=== PATIENT | male | born 1955 | race Caucasian/White ===

== ENCOUNTER 2017-06-14 17:25 | Inpatient (IN) | payer OTHER ==
[~2017-06-14] VITALS: Ht 198.1 cm; Wt 120.0 kg
[~2017-06-14 17:25] MED LIST: ACET325 PO; ACET500 PO; ALPR.5 PO; ALUMAG30SU PO; ASPI81EC PO; Acidophilus La100 GM; Amitiza24 MCG PO; Augmentin 875-1 EACH PO; BISA5EC; CALCA500CH PO; CEFU250 PO; CEFU500 PO; CEPH500 PO; CHLO500; CIPR500; CIPR500 PO; CLON.5 PO; CVS DISPOSABLE399 ML PR; CYCL10 PO; Citrate Of Mag300 ML PO; Colace100 MG PO; DIAZ2 PO; DIPH12.5EL PO; DOCU100 PO; DOXY100 PO; ENOX100I SC; Enema133 M1 RC; FLAV100 PO; FURO20 PO; Fleet Enema132 ML PR; GABA300 PO; GABA600 PO; GLYCAS PR; GOLYTELY PO; GUAI600T33 PO; Golytely Packe1 EACH PO; HYDACE25S PR; HYDMOR2; HYDMOR2 PO; HYDR25SUP PR; Hair, Skin & N1 EACH PO; INTE30I SC; KETO10 PO; Keflex500 MG PO; Kristalose20 GM PO; LACT10SY PO; MAGCIT300 PO; METO10 PO; MOM; Milk Of Ma400 MG/5 M PO; Minocycline HC100 MG PO; NALT50 PO; NALTREXONE 50 MG PO; NITR100 PO; NITR100CA PO; Naltrexone HCl50 MG PO; OMEP20ER PO; ONDA4ODT MM; OXYACE5T PO; OXYB5 PO; POLTRIOPSO OD; POTCHL10ER PO; PRIM50 PO; PROP65; Percocet 5-3251 EACH PO; Primidone50 MG PO; Protonix40 MG PO; RXHYDMOR2 PO; RXONDA4ODT MM; RXTRAM50 PO; Revia PO; Rocephin 1g1 G/50 ML IV; SACC250C PO; SENNA PO; SIME80CH PO; Senna8.6 M1 PO; Senna8.6 MG PO; TAMS.4ER PO; TETR250 PO; TOLT2 PO; TRAM50 PO; TRIM100 PO; TUMS DUAL ACTI1 EACH PO; Tazicef1 G1 IV; WARF10 PO; WARF2.5; WARF2.5 PO; WARF4 PO; WARF5; WARF5 PO; WARF6 PO; WARF7.5 PO; ZINC20TO TOP; [UNRECOGNIZED DRUG - OTHER]; [UNRECOGNIZED DRUG - OTHER] PO
[2017-06-14] MEDS ORDERED: NYSTATIN POWDER (18:11)
[2017-06-14 18:21] LABS: Source, Urine Catheter
[2017-06-14 18:24] LABS: BASOPHILS ABSOLUTE AUTO 0.02 K/mm3 (0.00-0.23); BASOPHILS PERCENT AUTO 0 % (0-2); EOSINOPHILS ABSOLUTE AUTO 0.22 K/mm3 (0.00-0.68); EOSINOPHILS PERCENT AUTO 2 % (0-6); Hematocrit 48.9 % (37.0-53.0); Hemoglobin 15.1 g/dL (13.5-17.5); IMMATURE GRAN ABSOLUTE AUTO 0.03 K/mm3 (0.00-0.10); IMMATURE GRAN PERCENT AUTO 0 % (0-1); LYMPHOCYTES ABSOLUTE AUTO 0.66 K/mm3 (0.84-5.20); LYMPHOCYTES PERCENT AUTO 6 % (21-46); MONOCYTES PERCENT AUTO 9 % (4-13); Mean Corpuscular HGB 26.4 pg (26.0-34.0); Mean Corpuscular HGB Conc 30.9 g/dL (31.5-36.5); Mean Corpuscular Volume 85 fL (80-100); Mean Platelet Volume 9.5 fL (9.1-12.4); NEUTROPHILS PERCENT AUTO 84 % (41-73); Platelet Count 290 K/mm3 (150-400); RDW Coefficient Variation 15.2 % (11.7-14.2); RDW Standard Deviation 47.4 fL (35.1-46.3); Red Blood Cell Count 5.73 M/mm3 (4.30-5.90); White Blood Cell Count 11.83 K/mm3 (4.00-11.30)
[2017-06-14 18:31] LABS: Appearance, Urine Hazy (Clear); Bilirubin, Urine Neg (Neg); Blood, Urine 4+ (Neg); Color, Urine Yellow (P-Yellow); Glucose Qualitative, Urine Neg (Neg); Ketones, Urine Neg (Neg); Leukocyte Esterase, Urine 3+ (Neg); Nitrite, Urine Pos (Neg); Protein, Urine 2+ (Neg); Specific Gravity, Urine 1.025 (1.003-1.022); Urobilinogen, Urine NORM (Normal)
[2017-06-14 19:03] LABS: International Normalized Ratio 1.91; Prothrombin Time Results 20.3 Sec (9.7-11.5)
[2017-06-14 19:11] LABS: Mucus Light (0-Heavy); White Blood Cells, Urine 25-50 /hpf (0-5)
[2017-06-14 19:12] LABS: Bacteria Mod /hpf; Red Blood Cells, Urine 25-50 /hpf (0-2); Squamous Epithelial Cells Not Seen /hpf (Few)
[2017-06-14 21:06] LABS: Alanine Aminotransfer (ALT/SGP 84 U/L (12-78); Albumin, Blood 3.3 g/dL (3.4-5.0); Albumin/Globulin Ratio 0.7 (0.8-1.8); Alk Phos 82 U/L (50-136); Anion Gap 6 mmol/L (6-16); Aspartate Aminotrans (AST/SGOT 54 U/L (12-37); Bilirubin, Total 0.5 mg/dL (0.1-1.0); Blood Urea Nitrogen 15 mg/dL (8-24); CO2, Blood 27 mmol/L (21-32); Calcium, Blood 8.9 mg/dL (8.5-10.1); Chloride, Blood 106 mmol/L (98-108); Creatinine, Blood 0.75 mg/dL (0.60-1.20); Globulin, Blood 4.9 g/dL (2.2-4.0); Glomerular Filtration Rate >60 (60-); Glucose, Blood 96 mg/dL (70-99); Potassium, Blood 4.7 mmol/L (3.5-5.5); Sodium, Blood 139 mmol/L (136-145); Total Protein, Blood 8.2 g/dL (6.4-8.2)
[2017-06-15] MEDS ORDERED: ZINC OXIDE TOP (02:37)
[2017-06-15] MEDS ORDERED: PROBIOTIC (02:40)
[2017-06-15] MEDS ORDERED: CLON.5 PO (02:52)
[2017-06-15 04:20] LABS: BASOPHILS ABSOLUTE AUTO 0.05 K/mm3 (0.00-0.23); BASOPHILS PERCENT AUTO 0 % (0-2); EOSINOPHILS ABSOLUTE AUTO 0.02 K/mm3 (0.00-0.68); EOSINOPHILS PERCENT AUTO 0 % (0-6); Hematocrit 43.1 % (37.0-53.0); Hemoglobin 13.5 g/dL (13.5-17.5); IMMATURE GRAN ABSOLUTE AUTO 0.18 K/mm3 (0.00-0.10); IMMATURE GRAN PERCENT AUTO 1 % (0-1); LYMPHOCYTES ABSOLUTE AUTO 0.86 K/mm3 (0.84-5.20); LYMPHOCYTES PERCENT AUTO 3 % (21-46); MONOCYTES ABSOLUTE AUTO 2.88 K/mm3 (0.16-1.47); MONOCYTES PERCENT AUTO 11 % (4-13); Mean Corpuscular HGB 26.4 pg (26.0-34.0); Mean Corpuscular HGB Conc 31.3 g/dL (31.5-36.5); Mean Corpuscular Volume 84 fL (80-100); NEUTROPHILS ABSOLUTE AUTO 21.96 K/mm3 (1.96-9.15); NEUTROPHILS PERCENT AUTO 85 % (41-73); Platelet Count 218 K/mm3 (150-400); RDW Coefficient Variation 15.2 % (11.7-14.2); RDW Standard Deviation 46.4 fL (35.1-46.3); Red Blood Cell Count 5.12 M/mm3 (4.30-5.90); White Blood Cell Count 25.95 K/mm3 (4.00-11.30)
[2017-06-15 04:34] LABS: International Normalized Ratio 2.36
[2017-06-15 04:48] LABS: Alanine Aminotransfer (ALT/SGP 66 U/L (12-78); Albumin, Blood 2.5 g/dL (3.4-5.0); Albumin/Globulin Ratio 0.6 (0.8-1.8); Alk Phos 60 U/L (50-136); Anion Gap 6 mmol/L (6-16); Aspartate Aminotrans (AST/SGOT 35 U/L (12-37); Bilirubin, Total 0.6 mg/dL (0.1-1.0); Blood Urea Nitrogen 17 mg/dL (8-24); Bun/Creatinine Ratio 26.1 (12.0-20.0); CO2, Blood 27 mmol/L (21-32); Chloride, Blood 109 mmol/L (98-108); Creatinine, Blood 0.65 mg/dL (0.60-1.20); Globulin, Blood 3.9 g/dL (2.2-4.0); Glomerular Filtration Rate >60 (60-); Glucose, Blood 111 mg/dL (70-99); Potassium, Blood 4.3 mmol/L (3.5-5.5); Sodium, Blood 142 mmol/L (136-145); Total Protein, Blood 6.4 g/dL (6.4-8.2)
[2017-06-15 04:50] LABS: Prothrombin Time Results 25.2 Sec (9.7-11.5)
[2017-06-16 05:08] LABS: BASOPHILS ABSOLUTE AUTO 0.03 K/mm3 (0.00-0.23); BASOPHILS PERCENT AUTO 0 % (0-2); EOSINOPHILS PERCENT AUTO 0 % (0-6); Hematocrit 46.4 % (37.0-53.0); Hemoglobin 14.6 g/dL (13.5-17.5); IMMATURE GRAN PERCENT AUTO 1 % (0-1); LYMPHOCYTES PERCENT AUTO 3 % (21-46); MONOCYTES ABSOLUTE AUTO 0.68 K/mm3 (0.16-1.47); MONOCYTES PERCENT AUTO 3 % (4-13); Mean Corpuscular HGB 26.6 pg (26.0-34.0); Mean Corpuscular HGB Conc 31.5 g/dL (31.5-36.5); Mean Corpuscular Volume 85 fL (80-100); Mean Platelet Volume 9.1 fL (9.1-12.4); NEUTROPHILS ABSOLUTE AUTO 19.55 K/mm3 (1.96-9.15); NEUTROPHILS PERCENT AUTO 93 % (41-73); Platelet Count 240 K/mm3 (150-400); RDW Coefficient Variation 15.2 % (11.7-14.2); RDW Standard Deviation 46.8 fL (35.1-46.3); Red Blood Cell Count 5.48 M/mm3 (4.30-5.90); White Blood Cell Count 20.96 K/mm3 (4.00-11.30)
[2017-06-16 05:26] LABS: International Normalized Ratio 2.81; Prothrombin Time Results 30.2 Sec (9.7-11.5)
[2017-06-16 05:28] LABS: Alanine Aminotransfer (ALT/SGP 59 U/L (12-78); Albumin, Blood 2.7 g/dL (3.4-5.0); Albumin/Globulin Ratio 0.6 (0.8-1.8); Alk Phos 71 U/L (50-136); Anion Gap 8 mmol/L (6-16); Aspartate Aminotrans (AST/SGOT 29 U/L (12-37); Bilirubin, Total 0.7 mg/dL (0.1-1.0); Blood Urea Nitrogen 15 mg/dL (8-24); Bun/Creatinine Ratio 26.7 (12.0-20.0); CO2, Blood 31 mmol/L (21-32); Calcium, Blood 8.7 mg/dL (8.5-10.1); Chloride, Blood 104 mmol/L (98-108); Creatinine, Blood 0.56 mg/dL (0.60-1.20); Globulin, Blood 4.7 g/dL (2.2-4.0); Glomerular Filtration Rate >60 (60-); Glucose, Blood 135 mg/dL (70-99); Potassium, Blood 4.1 mmol/L (3.5-5.5); Sodium, Blood 143 mmol/L (136-145); Total Protein, Blood 7.4 g/dL (6.4-8.2); Vancomycin, Trough 17.4 ug/mL (5.0-10.0)
[2017-06-16 16:32] LABS: Source, Urine Clean Catch
[2017-06-16 16:37] LABS: Appearance, Urine Hazy (Clear); Bilirubin, Urine Neg (Neg); Blood, Urine 5+ (Neg); Color, Urine Yellow (P-Yellow); Glucose Qualitative, Urine Neg (Neg); Ketones, Urine 4+ (Neg); Leukocyte Esterase, Urine 2+ (Neg); Nitrite, Urine Neg (Neg); Protein, Urine 2+ (Neg); Specific Gravity, Urine 1.025 (1.003-1.022); Urobilinogen, Urine NORM (Normal)
[2017-06-16 16:45] LABS: Mucus Light (0-Heavy); White Blood Cells, Urine 25-50 /hpf (0-5)
[2017-06-16 16:46] LABS: Squamous Epithelial Cells Few /hpf (Few)
[2017-06-16 16:47] LABS: Amorphous Light (0-Heavy); Bacteria Few /hpf
[2017-06-17 05:16] LABS: International Normalized Ratio 3.74; Prothrombin Time Results 40.5 Sec (9.7-11.5)
[2017-06-17 07:53] LABS: BASOPHILS ABSOLUTE AUTO 0.04 K/mm3 (0.00-0.23); BASOPHILS PERCENT AUTO 0 % (0-2); EOSINOPHILS PERCENT AUTO 0 % (0-6); Hematocrit 47.3 % (37.0-53.0); Hemoglobin 14.4 g/dL (13.5-17.5); IMMATURE GRAN ABSOLUTE AUTO 0.07 K/mm3 (0.00-0.10); IMMATURE GRAN PERCENT AUTO 0 % (0-1); LYMPHOCYTES PERCENT AUTO 3 % (21-46); MONOCYTES PERCENT AUTO 5 % (4-13); Mean Corpuscular HGB 26.4 pg (26.0-34.0); Mean Corpuscular HGB Conc 30.4 g/dL (31.5-36.5); Mean Corpuscular Volume 87 fL (80-100); Mean Platelet Volume 9.9 fL (9.1-12.4); NEUTROPHILS ABSOLUTE AUTO 17.73 K/mm3 (1.96-9.15); NEUTROPHILS PERCENT AUTO 91 % (41-73); Platelet Count 298 K/mm3 (150-400); RDW Coefficient Variation 15.4 % (11.7-14.2); RDW Standard Deviation 49.1 fL (35.1-46.3); Red Blood Cell Count 5.45 M/mm3 (4.30-5.90); White Blood Cell Count 19.44 K/mm3 (4.00-11.30)
[2017-06-17 08:01] LABS: Anion Gap 6 mmol/L (6-16); Blood Urea Nitrogen 19 mg/dL (8-24); Bun/Creatinine Ratio 32.4 (12.0-20.0); CO2, Blood 35 mmol/L (21-32); Calcium, Blood 8.8 mg/dL (8.5-10.1); Chloride, Blood 104 mmol/L (98-108); Creatinine, Blood 0.59 mg/dL (0.60-1.20); Glomerular Filtration Rate >60 (60-); Glucose, Blood 122 mg/dL (70-99); Sodium, Blood 145 mmol/L (136-145)
[2017-06-18 06:07] LABS: BASOPHILS ABSOLUTE AUTO 0.05 K/mm3 (0.00-0.23); BASOPHILS PERCENT AUTO 0 % (0-2); EOSINOPHILS ABSOLUTE AUTO 0.01 K/mm3 (0.00-0.68); EOSINOPHILS PERCENT AUTO 0 % (0-6); Hematocrit 45.8 % (37.0-53.0); IMMATURE GRAN ABSOLUTE AUTO 0.15 K/mm3 (0.00-0.10); IMMATURE GRAN PERCENT AUTO 1 % (0-1); LYMPHOCYTES ABSOLUTE AUTO 0.44 K/mm3 (0.84-5.20); LYMPHOCYTES PERCENT AUTO 2 % (21-46); MONOCYTES ABSOLUTE AUTO 2.29 K/mm3 (0.16-1.47); MONOCYTES PERCENT AUTO 9 % (4-13); Mean Corpuscular HGB 26.3 pg (26.0-34.0); Mean Corpuscular HGB Conc 30.6 g/dL (31.5-36.5); Mean Corpuscular Volume 86 fL (80-100); Mean Platelet Volume 9.5 fL (9.1-12.4); NEUTROPHILS ABSOLUTE AUTO 21.58 K/mm3 (1.96-9.15); NEUTROPHILS PERCENT AUTO 88 % (41-73); Platelet Count 305 K/mm3 (150-400); RDW Coefficient Variation 15.2 % (11.7-14.2); RDW Standard Deviation 47.8 fL (35.1-46.3); Red Blood Cell Count 5.33 M/mm3 (4.30-5.90); White Blood Cell Count 24.52 K/mm3 (4.00-11.30)
[2017-06-18 06:24] LABS: Prothrombin Time Results 60.2 Sec (9.7-11.5)
[2017-06-18 06:39] LABS: Alanine Aminotransfer (ALT/SGP 35 U/L (12-78); Albumin, Blood 2.6 g/dL (3.4-5.0); Albumin/Globulin Ratio 0.6 (0.8-1.8); Alk Phos 73 U/L (50-136); Anion Gap 5 mmol/L (6-16); Aspartate Aminotrans (AST/SGOT 18 U/L (12-37); Bilirubin, Total 0.6 mg/dL (0.1-1.0); Blood Urea Nitrogen 21 mg/dL (8-24); Bun/Creatinine Ratio 34.3 (12.0-20.0); CO2, Blood 42 mmol/L (21-32); Calcium, Blood 8.8 mg/dL (8.5-10.1); Chloride, Blood 103 mmol/L (98-108); Creatinine, Blood 0.61 mg/dL (0.60-1.20); Globulin, Blood 4.6 g/dL (2.2-4.0); Glomerular Filtration Rate >60 (60-); Glucose, Blood 161 mg/dL (70-99); Potassium, Blood 3.1 mmol/L (3.5-5.5); Sodium, Blood 150 mmol/L (136-145); Total Protein, Blood 7.2 g/dL (6.4-8.2)
[2017-06-18 06:41] LABS: International Normalized Ratio 5.49
[2017-06-18 06:53] LABS: Vancomycin, Trough 22.5 ug/mL (5.0-10.0)
[2017-06-19 06:25] LABS: BASOPHILS ABSOLUTE AUTO 0.07 K/mm3 (0.00-0.23); BASOPHILS PERCENT AUTO 0 % (0-2); EOSINOPHILS ABSOLUTE AUTO 0.07 K/mm3 (0.00-0.68); EOSINOPHILS PERCENT AUTO 0 % (0-6); Hematocrit 46.5 % (37.0-53.0); Hemoglobin 13.8 g/dL (13.5-17.5); IMMATURE GRAN ABSOLUTE AUTO 0.22 K/mm3 (0.00-0.10); IMMATURE GRAN PERCENT AUTO 1 % (0-1); LYMPHOCYTES ABSOLUTE AUTO 0.42 K/mm3 (0.84-5.20); LYMPHOCYTES PERCENT AUTO 2 % (21-46); MONOCYTES ABSOLUTE AUTO 2.23 K/mm3 (0.16-1.47); MONOCYTES PERCENT AUTO 8 % (4-13); Mean Corpuscular HGB 26.4 pg (26.0-34.0); Mean Corpuscular HGB Conc 29.7 g/dL (31.5-36.5); Mean Platelet Volume 9.3 fL (9.1-12.4); NEUTROPHILS ABSOLUTE AUTO 24.59 K/mm3 (1.96-9.15); NEUTROPHILS PERCENT AUTO 89 % (41-73); Platelet Count 289 K/mm3 (150-400); RDW Coefficient Variation 15.3 % (11.7-14.2); RDW Standard Deviation 50.2 fL (35.1-46.3); Red Blood Cell Count 5.23 M/mm3 (4.30-5.90)
[2017-06-19 06:26] LABS: Mean Corpuscular Volume 89 fL (80-100)
[2017-06-19 06:57] LABS: Alanine Aminotransfer (ALT/SGP 35 U/L (12-78); Albumin, Blood 2.4 g/dL (3.4-5.0); Albumin/Globulin Ratio 0.5 (0.8-1.8); Alk Phos 91 U/L (50-136); Aspartate Aminotrans (AST/SGOT 24 U/L (12-37); Bilirubin, Total 1.3 mg/dL (0.1-1.0); Blood Urea Nitrogen 24 mg/dL (8-24); Bun/Creatinine Ratio 38.8 (12.0-20.0); Chloride, Blood 102 mmol/L (98-108); Creatinine, Blood 0.62 mg/dL (0.60-1.20); Globulin, Blood 4.6 g/dL (2.2-4.0); Glomerular Filtration Rate >60 (60-); Glucose, Blood 152 mg/dL (70-99); Magnesium, Blood 2.6 mg/dL (1.6-2.4); Potassium, Blood 2.7 mmol/L (3.5-5.5); Sodium, Blood 153 mmol/L (136-145)
[2017-06-19 07:14] LABS: Anion Gap Unable to Calculate mmol/L (6-16)
[2017-06-19 07:17] LABS: CO2, Blood >45 mmol/L (21-32)
[2017-06-19 07:27] LABS: International Normalized Ratio 6.53
[2017-06-19 10:23] LABS: PCO2 Arterial 57.6 mmHg (35-45); PO2 Arterial 38.4 mmHg (80-100); pH Blood Arterial 7.56 (7.35-7.45)
[2017-06-19 13:40] LABS: PCO2 Arterial 47.6 mmHg (35-45); PO2 Arterial 61.3 mmHg (80-100)
[2017-06-19 17:24] LABS: Albumin, Blood 2.3 g/dL (3.4-5.0); Blood Urea Nitrogen 25 mg/dL (8-24); Bun/Creatinine Ratio 31.3 (12.0-20.0); Calcium, Blood 8.3 mg/dL (8.5-10.1); Chloride, Blood 105 mmol/L (98-108); Glomerular Filtration Rate >60 (60-); Glucose, Blood 140 mg/dL (70-99); Phosphorus, Blood 2.4 mg/dL (2.5-4.9); Potassium, Blood 2.6 mmol/L (3.5-5.5); Sodium, Blood 154 mmol/L (136-145); Troponin I 0.037 ng/mL (0.000-0.040)
[2017-06-19 17:28] LABS: Vancomycin, Trough 23.5 ug/mL (5.0-10.0)
[2017-06-19 17:51] LABS: Anion Gap Unable to Calculate mmol/L (6-16)
[2017-06-19 17:55] LABS: CO2, Blood >45 mmol/L (21-32)
[2017-06-20 04:37] LABS: Hematocrit 37.5 % (37.0-53.0); Hemoglobin 11.3 g/dL (13.5-17.5); Mean Corpuscular HGB 26.3 pg (26.0-34.0); Mean Corpuscular HGB Conc 30.1 g/dL (31.5-36.5); Mean Corpuscular Volume 87 fL (80-100); Mean Platelet Volume 9.9 fL (9.1-12.4); NRBC ABSOLUTE 0.03 K/mm3 (0.00-0.02); NRBC Auto 0.1 /100 WBC (0.0-0.2); Platelet Count 229 K/mm3 (150-400); RDW Coefficient Variation 15.9 % (11.7-14.2); RDW Standard Deviation 50.1 fL (35.1-46.3); Red Blood Cell Count 4.29 M/mm3 (4.30-5.90); White Blood Cell Count 24.03 K/mm3 (4.00-11.30)
[2017-06-20 04:52] LABS: International Normalized Ratio 3.03; Prothrombin Time Results 32.6 Sec (9.7-11.5)
[2017-06-20 04:59] LABS: Anion Gap 6 mmol/L (6-16); Blood Urea Nitrogen 25 mg/dL (8-24); Bun/Creatinine Ratio 35.7 (12.0-20.0); CO2, Blood 42 mmol/L (21-32); Calcium, Blood 7.6 mg/dL (8.5-10.1); Chloride, Blood 105 mmol/L (98-108); Glomerular Filtration Rate >60 (60-); Glucose, Blood 127 mg/dL (70-99); Phosphorus, Blood 2.3 mg/dL (2.5-4.9); Potassium, Blood 2.3 mmol/L (3.5-5.5); Sodium, Blood 153 mmol/L (136-145); Vancomycin, Random 11.9 ug/mL
[2017-06-20 05:28] LABS: BASOPHILS PERCENT MAN 0 % (0-2); EOSINOPHILS ABSOLUTE MAN 0.96 K/mm3 (0.00-0.68); EOSINOPHILS PERCENT MAN 4 % (0-6); LYMPHOCYTES ABSOLUTE MAN 0.24 K/mm3 (0.84-5.20); LYMPHOCYTES PERCENT MAN 1 % (21-46); MONOCYTES ABSOLUTE MAN 0.48 K/mm3 (0.16-1.47); MONOCYTES PERCENT MAN 2 % (4-13); NEUTROPHILS ABSOLUTE MAN 22.34 K/mm3 (1.96-9.15); SEG NEUTROPHILS PERCENT MAN 93 % (41-73); TOTAL CELLS COUNTED 100
[2017-06-20 16:15] LABS: Albumin, Blood 1.9 g/dL (3.4-5.0); Anion Gap 3 mmol/L (6-16); Blood Urea Nitrogen 21 mg/dL (8-24); CO2, Blood 38 mmol/L (21-32); Calcium, Blood 7.3 mg/dL (8.5-10.1); Chloride, Blood 112 mmol/L (98-108); Creatinine, Blood 0.62 mg/dL (0.60-1.20); Glomerular Filtration Rate >60 (60-); Glucose, Blood 110 mg/dL (70-99); Phosphorus, Blood 2.9 mg/dL (2.5-4.9); Potassium, Blood 2.8 mmol/L (3.5-5.5); Sodium, Blood 153 mmol/L (136-145)
[2017-06-21 04:55] LABS: BASOPHILS ABSOLUTE AUTO 0.07 K/mm3 (0.00-0.23); BASOPHILS PERCENT AUTO 0 % (0-2); EOSINOPHILS ABSOLUTE AUTO 1.38 K/mm3 (0.00-0.68); EOSINOPHILS PERCENT AUTO 6 % (0-6); Hematocrit 33.2 % (37.0-53.0); IMMATURE GRAN ABSOLUTE AUTO 0.13 K/mm3 (0.00-0.10); IMMATURE GRAN PERCENT AUTO 1 % (0-1); LYMPHOCYTES ABSOLUTE AUTO 0.54 K/mm3 (0.84-5.20); LYMPHOCYTES PERCENT AUTO 2 % (21-46); MONOCYTES ABSOLUTE AUTO 0.92 K/mm3 (0.16-1.47); MONOCYTES PERCENT AUTO 4 % (4-13); Mean Corpuscular HGB 26.4 pg (26.0-34.0); Mean Corpuscular HGB Conc 30.1 g/dL (31.5-36.5); Mean Corpuscular Volume 88 fL (80-100); Mean Platelet Volume 10.2 fL (9.1-12.4); NEUTROPHILS ABSOLUTE AUTO 20.23 K/mm3 (1.96-9.15); NEUTROPHILS PERCENT AUTO 87 % (41-73); NRBC ABSOLUTE 0.02 K/mm3 (0.00-0.02); NRBC Auto 0.1 /100 WBC (0.0-0.2); Platelet Count 229 K/mm3 (150-400); RDW Coefficient Variation 15.9 % (11.7-14.2); RDW Standard Deviation 50.4 fL (35.1-46.3); Red Blood Cell Count 3.79 M/mm3 (4.30-5.90); White Blood Cell Count 23.27 K/mm3 (4.00-11.30)
[2017-06-21 05:09] LABS: International Normalized Ratio 2.17; Prothrombin Time Results 23.1 Sec (9.7-11.5)
[2017-06-21 05:17] LABS: Albumin, Blood 1.7 g/dL (3.4-5.0); Anion Gap 5 mmol/L (6-16); Blood Urea Nitrogen 20 mg/dL (8-24); CO2, Blood 35 mmol/L (21-32); Chloride, Blood 114 mmol/L (98-108); Creatinine, Blood 0.65 mg/dL (0.60-1.20); Glomerular Filtration Rate >60 (60-); Glucose, Blood 164 mg/dL (70-99); Magnesium, Blood 1.9 mg/dL (1.6-2.4); Phosphorus, Blood 1.6 mg/dL (2.5-4.9); Potassium, Blood 2.8 mmol/L (3.5-5.5); Sodium, Blood 154 mmol/L (136-145); Vancomycin, Random 7.6 ug/mL
[2017-06-21 15:39] LABS: Alanine Aminotransfer (ALT/SGP 24 U/L (12-78); Albumin, Blood 1.6 g/dL (3.4-5.0); Albumin/Globulin Ratio 0.4 (0.8-1.8); Alk Phos 94 U/L (50-136); Anion Gap 7 mmol/L (6-16); Aspartate Aminotrans (AST/SGOT 20 U/L (12-37); Bilirubin, Total 0.6 mg/dL (0.1-1.0); Blood Urea Nitrogen 15 mg/dL (8-24); Bun/Creatinine Ratio 25.9 (12.0-20.0); CO2, Blood 31 mmol/L (21-32); Chloride, Blood 117 mmol/L (98-108); Creatinine, Blood 0.58 mg/dL (0.60-1.20); Globulin, Blood 3.8 g/dL (2.2-4.0); Glomerular Filtration Rate >60 (60-); Glucose, Blood 99 mg/dL (70-99); Phosphorus, Blood 2.6 mg/dL (2.5-4.9); Potassium, Blood 3.3 mmol/L (3.5-5.5); Sodium, Blood 155 mmol/L (136-145); Total Protein, Blood 5.4 g/dL (6.4-8.2)
[2017-06-22 04:37] LABS: BASOPHILS ABSOLUTE AUTO 0.02 K/mm3 (0.00-0.23); BASOPHILS PERCENT AUTO 0 % (0-2); EOSINOPHILS ABSOLUTE AUTO 0.92 K/mm3 (0.00-0.68); EOSINOPHILS PERCENT AUTO 6 % (0-6); Hematocrit 28.9 % (37.0-53.0); Hemoglobin 8.7 g/dL (13.5-17.5); IMMATURE GRAN ABSOLUTE AUTO 0.12 K/mm3 (0.00-0.10); IMMATURE GRAN PERCENT AUTO 1 % (0-1); LYMPHOCYTES ABSOLUTE AUTO 0.75 K/mm3 (0.84-5.20); LYMPHOCYTES PERCENT AUTO 5 % (21-46); MONOCYTES ABSOLUTE AUTO 0.72 K/mm3 (0.16-1.47); MONOCYTES PERCENT AUTO 5 % (4-13); Mean Corpuscular HGB 26.9 pg (26.0-34.0); Mean Corpuscular HGB Conc 30.1 g/dL (31.5-36.5); Mean Corpuscular Volume 89 fL (80-100); Mean Platelet Volume 9.5 fL (9.1-12.4); NEUTROPHILS ABSOLUTE AUTO 11.95 K/mm3 (1.96-9.15); NEUTROPHILS PERCENT AUTO 83 % (41-73); Platelet Count 208 K/mm3 (150-400); RDW Standard Deviation 52.8 fL (35.1-46.3); Red Blood Cell Count 3.24 M/mm3 (4.30-5.90); White Blood Cell Count 14.48 K/mm3 (4.00-11.30)
[2017-06-22 04:49] LABS: International Normalized Ratio 2.09; Prothrombin Time Results 22.2 Sec (9.7-11.5)
[2017-06-22 04:55] LABS: Albumin, Blood 1.5 g/dL (3.4-5.0); Anion Gap 4 mmol/L (6-16); Blood Urea Nitrogen 17 mg/dL (8-24); Bun/Creatinine Ratio 31.3 (12.0-20.0); CO2, Blood 28 mmol/L (21-32); Calcium, Blood 6.9 mg/dL (8.5-10.1); Chloride, Blood 123 mmol/L (98-108); Creatinine, Blood 0.54 mg/dL (0.60-1.20); Glomerular Filtration Rate >60 (60-); Glucose, Blood 121 mg/dL (70-99); Potassium, Blood 4.1 mmol/L (3.5-5.5); Sodium, Blood 155 mmol/L (136-145)
[2017-06-22 17:23] LABS: Albumin, Blood 1.5 g/dL (3.4-5.0); Anion Gap 3 mmol/L (6-16); Blood Urea Nitrogen 17 mg/dL (8-24); Bun/Creatinine Ratio 31.7 (12.0-20.0); CO2, Blood 27 mmol/L (21-32); Calcium, Blood 7.3 mg/dL (8.5-10.1); Chloride, Blood 122 mmol/L (98-108); Creatinine, Blood 0.54 mg/dL (0.60-1.20); Glomerular Filtration Rate >60 (60-); Glucose, Blood 117 mg/dL (70-99); Phosphorus, Blood 2.2 mg/dL (2.5-4.9); Potassium, Blood 4.1 mmol/L (3.5-5.5); Sodium, Blood 152 mmol/L (136-145)
[2017-06-23 04:33] LABS: BASOPHILS ABSOLUTE AUTO 0.02 K/mm3 (0.00-0.23); BASOPHILS PERCENT AUTO 0 % (0-2); EOSINOPHILS ABSOLUTE AUTO 0.83 K/mm3 (0.00-0.68); EOSINOPHILS PERCENT AUTO 7 % (0-6); Hemoglobin 8.8 g/dL (13.5-17.5); IMMATURE GRAN ABSOLUTE AUTO 0.12 K/mm3 (0.00-0.10); IMMATURE GRAN PERCENT AUTO 1 % (0-1); LYMPHOCYTES ABSOLUTE AUTO 0.68 K/mm3 (0.84-5.20); LYMPHOCYTES PERCENT AUTO 6 % (21-46); MONOCYTES ABSOLUTE AUTO 0.84 K/mm3 (0.16-1.47); MONOCYTES PERCENT AUTO 7 % (4-13); Mean Corpuscular HGB 26.8 pg (26.0-34.0); Mean Corpuscular HGB Conc 29.3 g/dL (31.5-36.5); Mean Platelet Volume 9.6 fL (9.1-12.4); NEUTROPHILS ABSOLUTE AUTO 9.74 K/mm3 (1.96-9.15); NEUTROPHILS PERCENT AUTO 80 % (41-73); Platelet Count 231 K/mm3 (150-400); RDW Coefficient Variation 16.4 % (11.7-14.2); RDW Standard Deviation 54.9 fL (35.1-46.3); Red Blood Cell Count 3.28 M/mm3 (4.30-5.90); White Blood Cell Count 12.23 K/mm3 (4.00-11.30)
[2017-06-23 04:34] LABS: Mean Corpuscular Volume 92 fL (80-100)
[2017-06-23 04:47] LABS: Albumin, Blood 1.6 g/dL (3.4-5.0); Anion Gap 7 mmol/L (6-16); Blood Urea Nitrogen 17 mg/dL (8-24); Bun/Creatinine Ratio 29.8 (12.0-20.0); CO2, Blood 25 mmol/L (21-32); Calcium, Blood 7.7 mg/dL (8.5-10.1); Chloride, Blood 120 mmol/L (98-108); Creatinine, Blood 0.57 mg/dL (0.60-1.20); Glomerular Filtration Rate >60 (60-); Glucose, Blood 93 mg/dL (70-99); Potassium, Blood 4.5 mmol/L (3.5-5.5); Sodium, Blood 152 mmol/L (136-145)
[2017-06-23 09:31] LABS: Vancomycin, Trough 7.9 ug/mL (5.0-10.0)
[2017-06-23 09:54] LABS: International Normalized Ratio 2.09; Prothrombin Time Results 22.2 Sec (9.7-11.5)
[2017-06-24 04:37] LABS: BASOPHILS ABSOLUTE AUTO 0.02 K/mm3 (0.00-0.23); BASOPHILS PERCENT AUTO 0 % (0-2); EOSINOPHILS ABSOLUTE AUTO 0.61 K/mm3 (0.00-0.68); EOSINOPHILS PERCENT AUTO 6 % (0-6); Hematocrit 28.7 % (37.0-53.0); Hemoglobin 8.7 g/dL (13.5-17.5); IMMATURE GRAN ABSOLUTE AUTO 0.12 K/mm3 (0.00-0.10); IMMATURE GRAN PERCENT AUTO 1 % (0-1); LYMPHOCYTES ABSOLUTE AUTO 0.75 K/mm3 (0.84-5.20); LYMPHOCYTES PERCENT AUTO 7 % (21-46); MONOCYTES ABSOLUTE AUTO 0.77 K/mm3 (0.16-1.47); MONOCYTES PERCENT AUTO 7 % (4-13); Mean Corpuscular HGB 26.7 pg (26.0-34.0); Mean Corpuscular HGB Conc 30.3 g/dL (31.5-36.5); Mean Corpuscular Volume 88 fL (80-100); Mean Platelet Volume 10.2 fL (9.1-12.4); NEUTROPHILS ABSOLUTE AUTO 8.56 K/mm3 (1.96-9.15); NEUTROPHILS PERCENT AUTO 79 % (41-73); Platelet Count 257 K/mm3 (150-400); RDW Coefficient Variation 15.9 % (11.7-14.2); RDW Standard Deviation 51.6 fL (35.1-46.3); Red Blood Cell Count 3.26 M/mm3 (4.30-5.90); White Blood Cell Count 10.83 K/mm3 (4.00-11.30)
[2017-06-24 04:50] LABS: International Normalized Ratio 2.01; Prothrombin Time Results 21.4 Sec (9.7-11.5)
[2017-06-24 04:53] LABS: Albumin, Blood 1.6 g/dL (3.4-5.0); Anion Gap 5 mmol/L (6-16); Blood Urea Nitrogen 12 mg/dL (8-24); Bun/Creatinine Ratio 19.4 (12.0-20.0); CO2, Blood 28 mmol/L (21-32); Calcium, Blood 7.8 mg/dL (8.5-10.1); Chloride, Blood 108 mmol/L (98-108); Creatinine, Blood 0.62 mg/dL (0.60-1.20); Glomerular Filtration Rate >60 (60-); Glucose, Blood 119 mg/dL (70-99); Phosphorus, Blood 1.9 mg/dL (2.5-4.9)
[2017-06-24 04:58] LABS: Sodium, Blood 141 mmol/L (136-145)
[2017-06-25 05:48] LABS: BASOPHILS ABSOLUTE AUTO 0.02 K/mm3 (0.00-0.23); BASOPHILS PERCENT AUTO 0 % (0-2); EOSINOPHILS ABSOLUTE AUTO 0.51 K/mm3 (0.00-0.68); EOSINOPHILS PERCENT AUTO 5 % (0-6); Hematocrit 29.8 % (37.0-53.0); Hemoglobin 9.1 g/dL (13.5-17.5); IMMATURE GRAN ABSOLUTE AUTO 0.17 K/mm3 (0.00-0.10); IMMATURE GRAN PERCENT AUTO 2 % (0-1); LYMPHOCYTES ABSOLUTE AUTO 0.83 K/mm3 (0.84-5.20); LYMPHOCYTES PERCENT AUTO 9 % (21-46); MONOCYTES ABSOLUTE AUTO 0.77 K/mm3 (0.16-1.47); MONOCYTES PERCENT AUTO 8 % (4-13); Mean Corpuscular HGB 26.6 pg (26.0-34.0); Mean Corpuscular HGB Conc 30.5 g/dL (31.5-36.5); Mean Corpuscular Volume 87 fL (80-100); Mean Platelet Volume 9.6 fL (9.1-12.4); NEUTROPHILS ABSOLUTE AUTO 7.24 K/mm3 (1.96-9.15); NEUTROPHILS PERCENT AUTO 76 % (41-73); Platelet Count 291 K/mm3 (150-400); RDW Coefficient Variation 15.8 % (11.7-14.2); RDW Standard Deviation 49.6 fL (35.1-46.3); Red Blood Cell Count 3.42 M/mm3 (4.30-5.90); White Blood Cell Count 9.54 K/mm3 (4.00-11.30)
[2017-06-25 06:05] LABS: Prothrombin Time Results 21.2 Sec (9.7-11.5)
[2017-06-25 06:06] LABS: Alanine Aminotransfer (ALT/SGP 40 U/L (12-78); Albumin, Blood 1.7 g/dL (3.4-5.0); Albumin/Globulin Ratio 0.4 (0.8-1.8); Alk Phos 87 U/L (50-136); Anion Gap 5 mmol/L (6-16); Aspartate Aminotrans (AST/SGOT 39 U/L (12-37); Bilirubin, Total 0.4 mg/dL (0.1-1.0); Blood Urea Nitrogen 11 mg/dL (8-24); Bun/Creatinine Ratio 17.9 (12.0-20.0); CO2, Blood 30 mmol/L (21-32); Chloride, Blood 107 mmol/L (98-108); Creatinine, Blood 0.62 mg/dL (0.60-1.20); Globulin, Blood 4.5 g/dL (2.2-4.0); Glomerular Filtration Rate >60 (60-); Glucose, Blood 118 mg/dL (70-99); Phosphorus, Blood 3.2 mg/dL (2.5-4.9); Potassium, Blood 3.9 mmol/L (3.5-5.5); Sodium, Blood 142 mmol/L (136-145); Total Protein, Blood 6.2 g/dL (6.4-8.2)
[2017-06-26 04:42] LABS: BASOPHILS PERCENT AUTO 0 % (0-2); EOSINOPHILS ABSOLUTE AUTO 0.42 K/mm3 (0.00-0.68); EOSINOPHILS PERCENT AUTO 5 % (0-6); Hematocrit 28.8 % (37.0-53.0); Hemoglobin 8.9 g/dL (13.5-17.5); IMMATURE GRAN ABSOLUTE AUTO 0.19 K/mm3 (0.00-0.10); IMMATURE GRAN PERCENT AUTO 2 % (0-1); LYMPHOCYTES ABSOLUTE AUTO 1.23 K/mm3 (0.84-5.20); LYMPHOCYTES PERCENT AUTO 15 % (21-46); MONOCYTES ABSOLUTE AUTO 0.79 K/mm3 (0.16-1.47); MONOCYTES PERCENT AUTO 9 % (4-13); Mean Corpuscular HGB 26.7 pg (26.0-34.0); Mean Corpuscular HGB Conc 30.9 g/dL (31.5-36.5); Mean Corpuscular Volume 87 fL (80-100); Mean Platelet Volume 9.6 fL (9.1-12.4); NEUTROPHILS ABSOLUTE AUTO 5.83 K/mm3 (1.96-9.15); NEUTROPHILS PERCENT AUTO 69 % (41-73); Platelet Count 348 K/mm3 (150-400); RDW Coefficient Variation 15.8 % (11.7-14.2); RDW Standard Deviation 49.3 fL (35.1-46.3); Red Blood Cell Count 3.33 M/mm3 (4.30-5.90); White Blood Cell Count 8.46 K/mm3 (4.00-11.30)
[2017-06-26 04:55] LABS: International Normalized Ratio 1.89; Prothrombin Time Results 20.1 Sec (9.7-11.5)
[2017-06-26 05:02] LABS: Alanine Aminotransfer (ALT/SGP 45 U/L (12-78); Albumin, Blood 1.8 g/dL (3.4-5.0); Albumin/Globulin Ratio 0.4 (0.8-1.8); Alk Phos 81 U/L (50-136); Anion Gap 5 mmol/L (6-16); Aspartate Aminotrans (AST/SGOT 38 U/L (12-37); Bilirubin, Total 0.3 mg/dL (0.1-1.0); Blood Urea Nitrogen 9 mg/dL (8-24); Bun/Creatinine Ratio 13.7 (12.0-20.0); CO2, Blood 30 mmol/L (21-32); Calcium, Blood 8.3 mg/dL (8.5-10.1); Chloride, Blood 106 mmol/L (98-108); Creatinine, Blood 0.66 mg/dL (0.60-1.20); Globulin, Blood 4.4 g/dL (2.2-4.0); Glomerular Filtration Rate >60 (60-); Glucose, Blood 106 mg/dL (70-99); Potassium, Blood 4.1 mmol/L (3.5-5.5); Sodium, Blood 141 mmol/L (136-145); Total Protein, Blood 6.2 g/dL (6.4-8.2)
[2017-06-27 03:42] LABS: International Normalized Ratio 2.32; Prothrombin Time Results 24.8 Sec (9.7-11.5)
[2017-06-28 05:04] LABS: BASOPHILS ABSOLUTE AUTO 0.03 K/mm3 (0.00-0.23); BASOPHILS PERCENT AUTO 0 % (0-2); EOSINOPHILS ABSOLUTE AUTO 0.35 K/mm3 (0.00-0.68); EOSINOPHILS PERCENT AUTO 3 % (0-6); Hematocrit 31.2 % (37.0-53.0); Hemoglobin 9.7 g/dL (13.5-17.5); IMMATURE GRAN ABSOLUTE AUTO 0.12 K/mm3 (0.00-0.10); IMMATURE GRAN PERCENT AUTO 1 % (0-1); LYMPHOCYTES PERCENT AUTO 13 % (21-46); MONOCYTES ABSOLUTE AUTO 1.07 K/mm3 (0.16-1.47); MONOCYTES PERCENT AUTO 11 % (4-13); Mean Corpuscular HGB 26.9 pg (26.0-34.0); Mean Corpuscular HGB Conc 31.1 g/dL (31.5-36.5); Mean Corpuscular Volume 86 fL (80-100); Mean Platelet Volume 9.2 fL (9.1-12.4); NEUTROPHILS ABSOLUTE AUTO 7.28 K/mm3 (1.96-9.15); NEUTROPHILS PERCENT AUTO 72 % (41-73); NRBC ABSOLUTE 0.02 K/mm3 (0.00-0.02); NRBC Auto 0.2 /100 WBC (0.0-0.2); Platelet Count 510 K/mm3 (150-400); RDW Coefficient Variation 15.9 % (11.7-14.2); Red Blood Cell Count 3.61 M/mm3 (4.30-5.90); White Blood Cell Count 10.15 K/mm3 (4.00-11.30)
[2017-06-28 05:18] LABS: International Normalized Ratio 3.23; Prothrombin Time Results 34.8 Sec (9.7-11.5)
[2017-06-28 05:25] LABS: Alanine Aminotransfer (ALT/SGP 49 U/L (12-78); Albumin/Globulin Ratio 0.4 (0.8-1.8); Alk Phos 85 U/L (50-136); Anion Gap 5 mmol/L (6-16); Aspartate Aminotrans (AST/SGOT 37 U/L (12-37); Bilirubin, Total 0.2 mg/dL (0.1-1.0); Blood Urea Nitrogen 11 mg/dL (8-24); Bun/Creatinine Ratio 14.9 (12.0-20.0); CO2, Blood 30 mmol/L (21-32); Calcium, Blood 8.8 mg/dL (8.5-10.1); Chloride, Blood 103 mmol/L (98-108); Creatinine, Blood 0.74 mg/dL (0.60-1.20); Globulin, Blood 4.9 g/dL (2.2-4.0); Glomerular Filtration Rate >60 (60-); Glucose, Blood 117 mg/dL (70-99); Magnesium, Blood 1.9 mg/dL (1.6-2.4); Potassium, Blood 4.8 mmol/L (3.5-5.5); Sodium, Blood 138 mmol/L (136-145); Total Protein, Blood 6.9 g/dL (6.4-8.2)
[2017-06-28 05:28] LABS: Percent Saturation 10.6 % (20.0-50.0)
[2017-06-28] MEDS ORDERED: MIDO5 PO (09:28)
[2017-06-28] MEDS ORDERED: FAMO40 PO (09:28)
== END 2017-06-28 13:30 | DRG 871 ==
LOC: ER 17:25 → PCU 20:04 → MEDS 20:04 → ICUE 20:04 → PCU 21:00 → MEDS 06-15 12:56 → ICUE 06-19 09:15 → PCU 06-25 15:26
PROVIDERS: Emergency Medicine; Internal Medicine; Internal Medicine Critical Care Medicine
PROC: 0BH17EZ Insertion of Endotracheal Airway into Trachea, Via Natural or Artificial Opening (ICD-10-PCS; principal; 2017-06-19)
PROC: 02HV33Z Insertion of Infusion Device into Superior Vena Cava, Percutaneous Approach (ICD-10-PCS; 2017-06-19)
PROC: 3E033XZ Introduction of Vasopressor into Peripheral Vein, Percutaneous Approach (ICD-10-PCS; 2017-06-19)
PROC: 5A1945Z Respiratory Ventilation, 24-96 Consecutive Hours (ICD-10-PCS; 2017-06-19)
DX: A41.52 Sepsis due to Pseudomonas (principal); R65.21 Severe sepsis with septic shock; J96.01 Acute respiratory failure with hypoxia; D65 Disseminated intravascular coagulation [defibrination syndrome]; J69.0 Pneumonitis due to inhalation of food and vomit; J96.02 Acute respiratory failure with hypercapnia; J15.9 Unspecified bacterial pneumonia; N39.0 Urinary tract infection, site not specified; E87.0 Hyperosmolality and hypernatremia; K56.699 Other intestinal obstruction unspecified as to partial versus complete obstruction; R13.10 Dysphagia, unspecified; G35 Multiple sclerosis; E87.6 Hypokalemia; N31.9 Neuromuscular dysfunction of bladder, unspecified; Z93.2 Ileostomy status; K31.84 Gastroparesis; Z86.718 Personal history of other venous thrombosis and embolism; Z79.01 Long term (current) use of anticoagulants; Z79.82 Long term (current) use of aspirin; K21.9 Gastro-esophageal reflux disease without esophagitis; G89.4 Chronic pain syndrome; E83.39 Other disorders of phosphorus metabolism
CPT/HCPCS: 31500; 31720; 36415; 36430; 36556; 36600; 51702; 71045; 71046; 74018; 74177; 80048; 80053; 80069; 80202; 81001; 82728; 82803; 82947; 83540; 83550; 83605; 83735; 84100; 84132; 84145; 84484; 85025; 85610; 86900; 86901; 87040; 87070; 87077; 87086; 87186; 87205; 92610; 93005; 93010; 93306; 94002; 94003; 94640; 94660; 94667; 94668; 94760; 96365; 96367; 96375; 99285; C1751; C9113; G8996; G8997; G8998; J0692; J1170; J1885; J1940; J2185; J2250; J2405; J2543; J2550; J3010; J3370; J3480; J7030; J7040; J7050; J7060; J7070; J7120; P9059; Q9967

== ENCOUNTER → 2017-07-16 | Outpatient (CLI) | payer OTHER ==
[~2017-07-16] MED LIST changes: +CEFD300 PO; +FAMO40 PO; +JUVEN PACKET1 EACH PO; +MIDO5 PO; +NYSTATIN1 EAC1 TOP; +PROBIOTIC; +ZINC OXIDE TOP
[2017-07-16 08:55] LABS: International Normalized Ratio 1.87; Prothrombin Time Results 19.8 Sec (9.7-11.5)
== END | disposition home or self-care (01) ==
LOC: LAB RH 07:59 → EDSTATUS 11:15
PROVIDERS: Internal Medicine
DX: Z79.01 Long term (current) use of anticoagulants (principal); Z51.81 Encounter for therapeutic drug level monitoring
CPT/HCPCS: 36415; 85610

== ENCOUNTER 2017-08-25 18:43 | Inpatient (IN) | payer OTHER ==
[~2017-08-25] VITALS: Ht 198.1 cm; Wt 119.3 kg
[~2017-08-25 18:43] MED LIST changes: -CEFD300 PO; -JUVEN PACKET1 EACH PO
[2017-08-25 19:43] LABS: Base Excess Venous 4.6 mmol/L; Bicarbonate Venous 26.3 mmol/L (24.0-30.0); PCO2 Venous 51.8 mmHg (38-42); PO2 Venous 27.3 mmHg (38-42); pH Blood Venous 7.37 (7.34-7.37)
[2017-08-25 19:46] LABS: BASOPHILS ABSOLUTE AUTO 0.04 K/mm3 (0.00-0.23); BASOPHILS PERCENT AUTO 0 % (0-2); EOSINOPHILS ABSOLUTE AUTO 0.12 K/mm3 (0.00-0.68); EOSINOPHILS PERCENT AUTO 1 % (0-6); Hematocrit 44.3 % (37.0-53.0); Hemoglobin 13.2 g/dL (13.5-17.5); IMMATURE GRAN ABSOLUTE AUTO 0.07 K/mm3 (0.00-0.10); IMMATURE GRAN PERCENT AUTO 0 % (0-1); LYMPHOCYTES ABSOLUTE AUTO 0.79 K/mm3 (0.84-5.20); LYMPHOCYTES PERCENT AUTO 5 % (21-46); MONOCYTES ABSOLUTE AUTO 1.43 K/mm3 (0.16-1.47); MONOCYTES PERCENT AUTO 9 % (4-13); Mean Corpuscular HGB 24.4 pg (26.0-34.0); Mean Corpuscular HGB Conc 29.8 g/dL (31.5-36.5); Mean Corpuscular Volume 82 fL (80-100); NEUTROPHILS ABSOLUTE AUTO 13.69 K/mm3 (1.96-9.15); NEUTROPHILS PERCENT AUTO 85 % (41-73); Platelet Count 292 K/mm3 (150-400); RDW Coefficient Variation 15.3 % (11.7-14.2); RDW Standard Deviation 45.8 fL (35.1-46.3); Red Blood Cell Count 5.41 M/mm3 (4.30-5.90); White Blood Cell Count 16.14 K/mm3 (4.00-11.30)
[2017-08-25 19:54] LABS: Source, Urine Catheter
[2017-08-25 19:56] LABS: Bilirubin, Urine Neg (Neg); Blood, Urine 5+ (Neg); Glucose Qualitative, Urine Neg (Neg); Ketones, Urine Neg (Neg); Leukocyte Esterase, Urine 3+ (Neg); Nitrite, Urine Pos (Neg); Protein, Urine 1+ (Neg); Specific Gravity, Urine 1.015 (1.003-1.022); Urobilinogen, Urine NORM (Normal)
[2017-08-25 19:59] LABS: International Normalized Ratio 1.99; Prothrombin Time Results 19.7 Sec (9.7-11.5)
[2017-08-25 20:01] LABS: Appearance, Urine Hazy (Clear); Color, Urine Yellow (P-Yellow)
[2017-08-25 20:02] LABS: White Blood Cells, Urine TNTC /hpf (0-5)
[2017-08-25 20:03] LABS: Bacteria Many /hpf; Squamous Epithelial Cells Not Seen /hpf (Few)
[2017-08-25 20:05] LABS: Alanine Aminotransfer (ALT/SGP 67 U/L (12-78); Albumin, Blood 3.4 g/dL (3.4-5.0); Albumin/Globulin Ratio 0.7 (0.8-1.8); Alk Phos 78 U/L (50-136); Anion Gap 10 mmol/L (6-16); Aspartate Aminotrans (AST/SGOT 32 U/L (12-37); Bilirubin, Total 0.5 mg/dL (0.1-1.0); Blood Urea Nitrogen 15 mg/dL (8-24); Bun/Creatinine Ratio 20.2 (12.0-20.0); CO2, Blood 29 mmol/L (21-32); Calcium, Blood 8.7 mg/dL (8.5-10.1); Chloride, Blood 100 mmol/L (98-108); Creatinine, Blood 0.74 mg/dL (0.60-1.20); Glomerular Filtration Rate >60 (60-); Glucose, Blood 99 mg/dL (70-99); Potassium, Blood 4.6 mmol/L (3.5-5.5); Sodium, Blood 139 mmol/L (136-145); Total Protein, Blood 8.4 g/dL (6.4-8.2); Troponin I <0.015 ng/mL (0.000-0.040)
[2017-08-26 04:41] LABS: Hematocrit 38.5 % (37.0-53.0); Hemoglobin 11.9 g/dL (13.5-17.5); Mean Corpuscular HGB 24.7 pg (26.0-34.0); Mean Corpuscular HGB Conc 30.9 g/dL (31.5-36.5); Mean Corpuscular Volume 80 fL (80-100); Mean Platelet Volume 9.4 fL (9.1-12.4); Platelet Count 256 K/mm3 (150-400); RDW Coefficient Variation 15.2 % (11.7-14.2); Red Blood Cell Count 4.82 M/mm3 (4.30-5.90); White Blood Cell Count 18.13 K/mm3 (4.00-11.30)
[2017-08-26 04:59] LABS: Alanine Aminotransfer (ALT/SGP 53 U/L (12-78); Albumin, Blood 2.8 g/dL (3.4-5.0); Albumin/Globulin Ratio 0.6 (0.8-1.8); Alk Phos 65 U/L (50-136); Anion Gap 10 mmol/L (6-16); Aspartate Aminotrans (AST/SGOT 26 U/L (12-37); Bilirubin, Total 0.9 mg/dL (0.1-1.0); Blood Urea Nitrogen 12 mg/dL (8-24); Bun/Creatinine Ratio 19.5 (12.0-20.0); CO2, Blood 24 mmol/L (21-32); Calcium, Blood 8.2 mg/dL (8.5-10.1); Chloride, Blood 104 mmol/L (98-108); Creatinine, Blood 0.61 mg/dL (0.60-1.20); Globulin, Blood 4.4 g/dL (2.2-4.0); Glomerular Filtration Rate >60 (60-); Glucose, Blood 103 mg/dL (70-99); Sodium, Blood 138 mmol/L (136-145); Total Protein, Blood 7.2 g/dL (6.4-8.2)
[2017-08-26 09:11] LABS: International Normalized Ratio 1.52; Prothrombin Time Results 15.3 Sec (9.7-11.5)
[2017-08-27 05:44] LABS: International Normalized Ratio 1.37; Prothrombin Time Results 13.9 Sec (9.7-11.5)
[2017-08-27 06:08] LABS: BASOPHILS ABSOLUTE AUTO 0.04 K/mm3 (0.00-0.23); BASOPHILS PERCENT AUTO 0 % (0-2); EOSINOPHILS ABSOLUTE AUTO 0.41 K/mm3 (0.00-0.68); EOSINOPHILS PERCENT AUTO 3 % (0-6); Hematocrit 36.4 % (37.0-53.0); Hemoglobin 11.1 g/dL (13.5-17.5); IMMATURE GRAN ABSOLUTE AUTO 0.04 K/mm3 (0.00-0.10); IMMATURE GRAN PERCENT AUTO 0 % (0-1); LYMPHOCYTES ABSOLUTE AUTO 1.12 K/mm3 (0.84-5.20); LYMPHOCYTES PERCENT AUTO 9 % (21-46); MONOCYTES ABSOLUTE AUTO 1.31 K/mm3 (0.16-1.47); MONOCYTES PERCENT AUTO 10 % (4-13); Mean Corpuscular HGB 24.8 pg (26.0-34.0); Mean Corpuscular HGB Conc 30.5 g/dL (31.5-36.5); Mean Corpuscular Volume 81 fL (80-100); Mean Platelet Volume 9.5 fL (9.1-12.4); NEUTROPHILS ABSOLUTE AUTO 10.21 K/mm3 (1.96-9.15); NEUTROPHILS PERCENT AUTO 78 % (41-73); Platelet Count 254 K/mm3 (150-400); RDW Coefficient Variation 15.6 % (11.7-14.2); RDW Standard Deviation 46.2 fL (35.1-46.3); Red Blood Cell Count 4.48 M/mm3 (4.30-5.90); White Blood Cell Count 13.13 K/mm3 (4.00-11.30)
[2017-08-27 06:14] LABS: Anion Gap 8 mmol/L (6-16); Blood Urea Nitrogen 11 mg/dL (8-24); Bun/Creatinine Ratio 18.5 (12.0-20.0); CO2, Blood 25 mmol/L (21-32); Calcium, Blood 8.4 mg/dL (8.5-10.1); Chloride, Blood 106 mmol/L (98-108); Creatinine, Blood 0.59 mg/dL (0.60-1.20); Glomerular Filtration Rate >60 (60-); Glucose, Blood 97 mg/dL (70-99); Sodium, Blood 139 mmol/L (136-145)
[2017-08-28 05:41] LABS: BASOPHILS ABSOLUTE AUTO 0.02 K/mm3 (0.00-0.23); BASOPHILS PERCENT AUTO 0 % (0-2); EOSINOPHILS ABSOLUTE AUTO 0.31 K/mm3 (0.00-0.68); EOSINOPHILS PERCENT AUTO 3 % (0-6); Hematocrit 37.7 % (37.0-53.0); Hemoglobin 11.7 g/dL (13.5-17.5); IMMATURE GRAN ABSOLUTE AUTO 0.03 K/mm3 (0.00-0.10); IMMATURE GRAN PERCENT AUTO 0 % (0-1); LYMPHOCYTES ABSOLUTE AUTO 0.88 K/mm3 (0.84-5.20); LYMPHOCYTES PERCENT AUTO 9 % (21-46); MONOCYTES ABSOLUTE AUTO 0.99 K/mm3 (0.16-1.47); MONOCYTES PERCENT AUTO 11 % (4-13); Mean Corpuscular HGB 24.8 pg (26.0-34.0); Mean Corpuscular Volume 80 fL (80-100); Mean Platelet Volume 9.4 fL (9.1-12.4); NEUTROPHILS ABSOLUTE AUTO 7.11 K/mm3 (1.96-9.15); NEUTROPHILS PERCENT AUTO 76 % (41-73); Platelet Count 267 K/mm3 (150-400); RDW Coefficient Variation 15.3 % (11.7-14.2); RDW Standard Deviation 44.3 fL (35.1-46.3); Red Blood Cell Count 4.72 M/mm3 (4.30-5.90); White Blood Cell Count 9.34 K/mm3 (4.00-11.30)
[2017-08-28 05:54] LABS: International Normalized Ratio 1.44; Prothrombin Time Results 14.5 Sec (9.7-11.5)
[2017-08-28 06:05] LABS: Anion Gap 10 mmol/L (6-16); Blood Urea Nitrogen 11 mg/dL (8-24); Bun/Creatinine Ratio 19.1 (12.0-20.0); CO2, Blood 25 mmol/L (21-32); Calcium, Blood 8.3 mg/dL (8.5-10.1); Chloride, Blood 103 mmol/L (98-108); Creatinine, Blood 0.58 mg/dL (0.60-1.20); Glomerular Filtration Rate >60 (60-); Glucose, Blood 87 mg/dL (70-99); Potassium, Blood 3.9 mmol/L (3.5-5.5); Sodium, Blood 138 mmol/L (136-145)
[2017-08-29 05:16] LABS: International Normalized Ratio 1.62; Prothrombin Time Results 16.2 Sec (9.7-11.5)
[2017-08-29] MEDS ORDERED: JUVEN PACKET1 EACH PO (18:21)
[2017-08-29] MEDS ORDERED: DOCU100 PO (18:21)
[2017-08-29] MEDS ORDERED: CEFD300 PO (18:22)
== END 2017-08-29 17:32 | DRG 698 ==
LOC: ER 18:43 → MEDS 20:43 → PCU 20:43 → MEDS 08-26 13:28 → EDPENDDIS 08-29 16:38 → ENPENDDIS 08-29 16:38 → MEDS 08-29 17:32
PROVIDERS: Emergency Medicine; Hospitalist; Internal Medicine; Pharmacist Pharmacotherapy
DX: T83.511A Infection and inflammatory reaction due to indwelling urethral catheter, initial encounter (principal); G82.50 Quadriplegia, unspecified; A41.51 Sepsis due to Escherichia coli [E. coli]; G35 Multiple sclerosis; N31.9 Neuromuscular dysfunction of bladder, unspecified; B96.5 Pseudomonas (aeruginosa) (mallei) (pseudomallei) as the cause of diseases classified elsewhere; Z86.711 Personal history of pulmonary embolism; Z79.01 Long term (current) use of anticoagulants; L89.90 Pressure ulcer of unspecified site, unspecified stage; B96.20 Unspecified Escherichia coli [E. coli] as the cause of diseases classified elsewhere
CPT/HCPCS: 36415; 71045; 80048; 80053; 81001; 82803; 83605; 84484; 85025; 85027; 85610; 87077; 87086; 87186; 93005; 93010; 96361; 96365; 99285; J2185; J2543; J3010; J7030; J7120

== ENCOUNTER 2017-10-14 01:12 | Emergency (ER) | payer OTHER ==
[~2017-10-14] VITALS: Ht 198.1 cm; Wt 113.4 kg
[~2017-10-14 01:12] MED LIST changes: +CEFD300 PO; +DULO30 PO; +JUVEN PACKET1 EACH PO
[2017-10-14 01:41] LABS: BASOPHILS ABSOLUTE AUTO 0.03 K/mm3 (0.00-0.23); BASOPHILS PERCENT AUTO 0 % (0-2); EOSINOPHILS ABSOLUTE AUTO 0.09 K/mm3 (0.00-0.68); EOSINOPHILS PERCENT AUTO 1 % (0-6); Hematocrit 40.5 % (37.0-53.0); Hemoglobin 12.5 g/dL (13.5-17.5); IMMATURE GRAN ABSOLUTE AUTO 0.04 K/mm3 (0.00-0.10); IMMATURE GRAN PERCENT AUTO 0 % (0-1); LYMPHOCYTES ABSOLUTE AUTO 0.39 K/mm3 (0.84-5.20); LYMPHOCYTES PERCENT AUTO 4 % (21-46); MONOCYTES ABSOLUTE AUTO 0.87 K/mm3 (0.16-1.47); MONOCYTES PERCENT AUTO 9 % (4-13); Mean Corpuscular HGB 24.4 pg (26.0-34.0); Mean Corpuscular HGB Conc 30.9 g/dL (31.5-36.5); Mean Corpuscular Volume 79 fL (80-100); NEUTROPHILS ABSOLUTE AUTO 7.85 K/mm3 (1.96-9.15); NEUTROPHILS PERCENT AUTO 85 % (41-73); Platelet Count 279 K/mm3 (150-400); RDW Coefficient Variation 16.9 % (11.7-14.2); Red Blood Cell Count 5.12 M/mm3 (4.30-5.90); White Blood Cell Count 9.27 K/mm3 (4.00-11.30)
[2017-10-14 01:54] LABS: Alanine Aminotransfer (ALT/SGP 125 U/L (12-78); Albumin, Blood 2.9 g/dL (3.4-5.0); Albumin/Globulin Ratio 0.6 (0.8-1.8); Alk Phos 95 U/L (50-136); Anion Gap 9 mmol/L (6-16); Aspartate Aminotrans (AST/SGOT 68 U/L (12-37); Bilirubin, Total 0.5 mg/dL (0.1-1.0); Blood Urea Nitrogen 17 mg/dL (8-24); CO2, Blood 24 mmol/L (21-32); Calcium, Blood 8.4 mg/dL (8.5-10.1); Chloride, Blood 104 mmol/L (98-108); Creatinine, Blood 0.57 mg/dL (0.60-1.20); Globulin, Blood 4.9 g/dL (2.2-4.0); Glomerular Filtration Rate >60 (60-); Glucose, Blood 113 mg/dL (70-99); Potassium, Blood 4.3 mmol/L (3.5-5.5); Sodium, Blood 137 mmol/L (136-145); Total Protein, Blood 7.8 g/dL (6.4-8.2)
[2017-10-14 02:48] LABS: Source, Urine Catheter
[2017-10-14 02:49] LABS: Bilirubin, Urine Neg (Neg); Blood, Urine 5+ (Neg); Glucose Qualitative, Urine Neg (Neg); Ketones, Urine Neg (Neg); Leukocyte Esterase, Urine 3+ (Neg); Nitrite, Urine Pos (Neg); Protein, Urine 2+ (Neg); Specific Gravity, Urine 1.015 (1.003-1.022); Urobilinogen, Urine NORM (Normal)
[2017-10-14 02:50] LABS: Appearance, Urine Hazy (Clear); Color, Urine Yellow (P-Yellow)
[2017-10-14 02:52] LABS: International Normalized Ratio 2.9; Prothrombin Time Results 28.1 Sec (9.7-11.5)
[2017-10-14 03:02] LABS: Amorphous Light (0-Heavy); Bacteria Mod /hpf; Red Blood Cells, Urine 0-2 /hpf (0-2); Squamous Epithelial Cells Not Seen /hpf (Few); White Blood Cells, Urine TNTC /hpf (0-5)
[2017-10-14] MEDS ORDERED: CEFU500T30 PO (03:54)
[2017-10-14] MEDS ORDERED: Tylenol325 MG PO (03:54)
== END 2017-10-14 04:17 | disposition home or self-care (01) ==
LOC: ER 01:12
PROVIDERS: Emergency Medicine
DX: N39.0 Urinary tract infection, site not specified (principal); G35 Multiple sclerosis; D68.32 Hemorrhagic disorder due to extrinsic circulating anticoagulants; T45.515A Adverse effect of anticoagulants, initial encounter; Z88.2 Allergy status to sulfonamides; Z88.5 Allergy status to narcotic agent; Z88.8 Allergy status to other drugs, medicaments and biological substances; Z88.1 Allergy status to other antibiotic agents; Z91.018 Allergy to other foods; Z91.02 Food additives allergy status; Z79.899 Other long term (current) drug therapy; Z79.01 Long term (current) use of anticoagulants; Z87.891 Personal history of nicotine dependence
CPT/HCPCS: 36415; 71045; 80053; 81001; 83605; 85025; 85610; 87077; 87086; 87186; 96365; 99284-25; J0694; J0697

== ENCOUNTER 2018-03-15 19:41 | Inpatient (IN) | payer OTHER ==
[~2018-03-15] VITALS: Ht 198.1 cm; Wt 122.3 kg
[~2018-03-15 19:41] MED LIST changes: +CEFU500T30 PO; +Tylenol325 MG PO; +Vibramycin100 MG PO
[2018-03-15] MEDS ORDERED: PRIM50 PO (20:12)
[2018-03-15 20:15] LABS: BASOPHILS ABSOLUTE AUTO 0.03 K/mm3 (0.00-0.23); BASOPHILS PERCENT AUTO 0 % (0-2); EOSINOPHILS ABSOLUTE AUTO 0.22 K/mm3 (0.00-0.68); EOSINOPHILS PERCENT AUTO 2 % (0-6); Hematocrit 41.4 % (37.0-53.0); Hemoglobin 12.3 g/dL (13.5-17.5); IMMATURE GRAN ABSOLUTE AUTO 0.03 K/mm3 (0.00-0.10); IMMATURE GRAN PERCENT AUTO 0 % (0-1); LYMPHOCYTES ABSOLUTE AUTO 0.72 K/mm3 (0.84-5.20); LYMPHOCYTES PERCENT AUTO 6 % (21-46); MONOCYTES ABSOLUTE AUTO 1.63 K/mm3 (0.16-1.47); MONOCYTES PERCENT AUTO 13 % (4-13); Mean Corpuscular HGB 23.9 pg (26.0-34.0); Mean Corpuscular HGB Conc 29.7 g/dL (31.5-36.5); Mean Corpuscular Volume 81 fL (80-100); Mean Platelet Volume 9.3 fL (9.1-12.4); NEUTROPHILS PERCENT AUTO 79 % (41-73); Platelet Count 280 K/mm3 (150-400); RDW Standard Deviation 52.1 fL (35.1-46.3); Red Blood Cell Count 5.14 M/mm3 (4.30-5.90); White Blood Cell Count 12.43 K/mm3 (4.00-11.30)
[2018-03-15] MEDS ORDERED: ACET325 PO (20:16)
[2018-03-15 20:36] LABS: Alanine Aminotransfer (ALT/SGP 43 U/L (12-78); Albumin, Blood 2.8 g/dL (3.4-5.0); Albumin/Globulin Ratio 0.5 (0.8-1.8); Alk Phos 91 U/L (50-136); Anion Gap 6 mmol/L (6-16); Aspartate Aminotrans (AST/SGOT 27 U/L (12-37); Bilirubin, Total 0.6 mg/dL (0.1-1.0); Blood Urea Nitrogen 13 mg/dL (8-24); Bun/Creatinine Ratio 15.1 (12.0-20.0); CO2, Blood 26 mmol/L (21-32); Calcium, Blood 8.7 mg/dL (8.5-10.1); Chloride, Blood 100 mmol/L (98-108); Creatinine, Blood 0.86 mg/dL (0.60-1.20); Globulin, Blood 5.2 g/dL (2.2-4.0); Glomerular Filtration Rate >60 (60-); Glucose, Blood 146 mg/dL (70-99); Potassium, Blood 4.3 mmol/L (3.5-5.5); Sodium, Blood 132 mmol/L (136-145)
[2018-03-15 20:59] LABS: Source, Urine Catheter
[2018-03-15 21:02] LABS: Bilirubin, Urine Neg (Neg); Blood, Urine 5+ (Neg); Glucose Qualitative, Urine Neg (Neg); Ketones, Urine 1+ (Neg); Leukocyte Esterase, Urine 3+ (Neg); Nitrite, Urine Pos (Neg); Protein, Urine 3+ (Neg); Specific Gravity, Urine 1.015 (1.003-1.022); Urobilinogen, Urine NORM (Normal)
[2018-03-15 21:05] LABS: Appearance, Urine Turbid (Clear); Color, Urine Yellow (P-Yellow)
[2018-03-15 21:07] LABS: White Blood Cells, Urine TNTC /hpf (0-5)
[2018-03-15 21:08] LABS: Amorphous Mod (0-Heavy); Bacteria Many /hpf; Squamous Epithelial Cells Rare /hpf (Few)
[2018-03-16 04:54] LABS: BASOPHILS ABSOLUTE AUTO 0.05 K/mm3 (0.00-0.23); BASOPHILS PERCENT AUTO 0 % (0-2); EOSINOPHILS PERCENT AUTO 2 % (0-6); Hematocrit 39.5 % (37.0-53.0); Hemoglobin 11.4 g/dL (13.5-17.5); IMMATURE GRAN ABSOLUTE AUTO 0.06 K/mm3 (0.00-0.10); IMMATURE GRAN PERCENT AUTO 0 % (0-1); LYMPHOCYTES PERCENT AUTO 7 % (21-46); MONOCYTES ABSOLUTE AUTO 3.11 K/mm3 (0.16-1.47); MONOCYTES PERCENT AUTO 23 % (4-13); Mean Corpuscular HGB 23.8 pg (26.0-34.0); Mean Corpuscular HGB Conc 28.9 g/dL (31.5-36.5); Mean Corpuscular Volume 83 fL (80-100); Mean Platelet Volume 9.2 fL (9.1-12.4); NEUTROPHILS ABSOLUTE AUTO 8.98 K/mm3 (1.96-9.15); NEUTROPHILS PERCENT AUTO 67 % (41-73); Platelet Count 235 K/mm3 (150-400); RDW Standard Deviation 54.5 fL (35.1-46.3); Red Blood Cell Count 4.78 M/mm3 (4.30-5.90)
[2018-03-16 05:08] LABS: International Normalized Ratio 1.19; Prothrombin Time Results 12.1 Sec (9.7-11.5)
[2018-03-16 05:26] LABS: Alanine Aminotransfer (ALT/SGP 33 U/L (12-78); Albumin, Blood 2.4 g/dL (3.4-5.0); Albumin/Globulin Ratio 0.5 (0.8-1.8); Alk Phos 79 U/L (50-136); Anion Gap 3 mmol/L (6-16); Aspartate Aminotrans (AST/SGOT 23 U/L (12-37); Bilirubin, Total 0.7 mg/dL (0.1-1.0); Blood Urea Nitrogen 14 mg/dL (8-24); Bun/Creatinine Ratio 16.7 (12.0-20.0); CO2, Blood 28 mmol/L (21-32); Calcium, Blood 8.1 mg/dL (8.5-10.1); Chloride, Blood 106 mmol/L (98-108); Creatinine, Blood 0.84 mg/dL (0.60-1.20); Globulin, Blood 4.6 g/dL (2.2-4.0); Glomerular Filtration Rate >60 (60-); Glucose, Blood 98 mg/dL (70-99); Potassium, Blood 4.4 mmol/L (3.5-5.5); Sodium, Blood 137 mmol/L (136-145)
--- NOTE | 2018-03-16 06:51 | NUR ---
PCU NOC SHIFT SUMMARY PATIENT ARRIVED TO UNIT FROM ER; TRANSFERED TO PCU UNIT BED WITH SLIDER SHEET AND 4 NURSE ASSIST. PATIENT MORBIDLY OBESE AND TALL. PATIENTS CLEARY CATH CHANGED. PATIENT REPOSITIONED FOR COMFORT AND TO REDUCE PRESSURE ULCERS. JUMA HAS HOME YAZAN BOOTS IN PLACE BILATERALLY. PATIENTS RESP E/U AT REST ON 2 LPM NC LUNG SOUNDS DIM. NO ACUTE CHANGES T/O SHIFT. REPORTED OFF TO SUSAN CLANCY.
--- NOTE | 2018-03-16 17:56 | NUR ---
XFER TO 310 REC REPORT FROM JULIETH DAVIS. PT XFER'D @ [id number]
[2018-03-17 04:53] LABS: BASOPHILS ABSOLUTE AUTO 0.03 K/mm3 (0.00-0.23); BASOPHILS PERCENT AUTO 0 % (0-2); EOSINOPHILS ABSOLUTE AUTO 0.43 K/mm3 (0.00-0.68); EOSINOPHILS PERCENT AUTO 4 % (0-6); Hematocrit 35.2 % (37.0-53.0); Hemoglobin 10.2 g/dL (13.5-17.5); IMMATURE GRAN ABSOLUTE AUTO 0.03 K/mm3 (0.00-0.10); IMMATURE GRAN PERCENT AUTO 0 % (0-1); LYMPHOCYTES ABSOLUTE AUTO 0.77 K/mm3 (0.84-5.20); LYMPHOCYTES PERCENT AUTO 8 % (21-46); MONOCYTES ABSOLUTE AUTO 1.41 K/mm3 (0.16-1.47); MONOCYTES PERCENT AUTO 14 % (4-13); Mean Corpuscular HGB 23.8 pg (26.0-34.0); Mean Corpuscular Volume 82 fL (80-100); Mean Platelet Volume 9.2 fL (9.1-12.4); NEUTROPHILS ABSOLUTE AUTO 7.33 K/mm3 (1.96-9.15); NEUTROPHILS PERCENT AUTO 73 % (41-73); Platelet Count 236 K/mm3 (150-400); RDW Standard Deviation 54.1 fL (35.1-46.3); Red Blood Cell Count 4.28 M/mm3 (4.30-5.90)
[2018-03-17 05:14] LABS: International Normalized Ratio 1.12; Prothrombin Time Results 11.5 Sec (9.7-11.5)
[2018-03-17 05:15] LABS: Alanine Aminotransfer (ALT/SGP 24 U/L (12-78); Albumin, Blood 2.2 g/dL (3.4-5.0); Albumin/Globulin Ratio 0.5 (0.8-1.8); Alk Phos 69 U/L (50-136); Anion Gap 8 mmol/L (6-16); Aspartate Aminotrans (AST/SGOT 17 U/L (12-37); Bilirubin, Total 0.6 mg/dL (0.1-1.0); Blood Urea Nitrogen 16 mg/dL (8-24); Bun/Creatinine Ratio 21.5 (12.0-20.0); CO2, Blood 25 mmol/L (21-32); Chloride, Blood 106 mmol/L (98-108); Creatinine, Blood 0.74 mg/dL (0.60-1.20); Globulin, Blood 4.4 g/dL (2.2-4.0); Glomerular Filtration Rate >60 (60-); Glucose, Blood 85 mg/dL (70-99); Magnesium, Blood 2.1 mg/dL (1.6-2.4); Phosphorus, Blood 2.8 mg/dL (2.5-4.9); Potassium, Blood 3.8 mmol/L (3.5-5.5); Sodium, Blood 139 mmol/L (136-145); Total Protein, Blood 6.6 g/dL (6.4-8.2)
--- NOTE | 2018-03-17 06:20 | NUR ---
SHIFT SUMMARY PT ALERT AND ORIENTED. DENIES PAIN, N/V, AND SOB. ILEOSTOMY BAG AND APPLIANCE CHANGED AT THIS SHIFT. STOMA LOOKS PINKISH-RED AND MOIST. REPOSITIONED Q2H. EAASY TOUCH CALL IN REACH. ABLE TO MAKE NEEDDS KNOWN. IVF NS RUNNING. WILL CONTINUE TO MONITOR.
--- NOTE | 2018-03-17 08:53 | NUR ---
PT REFUSED BREAKFAST. WANTED TO SLEEP LONGER. WILL TRY AGAIN.
--- NOTE | 2018-03-17 18:15 | NUR ---
SHIFT SUMMARY: NO ACUTE CHANGES TO REPORT THIS SHIFT. PT A&O; CALM AND COOPERATIVE WITH CARE. PT HX MS; BEDBOUND AT BASELINE. 2L O2; 2L O2 AT HOME. CHRONIC CLEARY IN PLACE FOR URINARY RETENTION; PATENT AND DRAINING. NS @ 75; IV ABX CONTINUING. WCTM.
--- NOTE | 2018-03-18 04:45 | NUR ---
SHIFT SUMMARY NO ACUTE CHANGES AT THIS SHIFT. PT REFUSED VITALS TO BE TAKEN THIS MORNING. REPOSITIONED T/O SHIFT. IVF NS RUNNING. RESTED WELL. WILL CONTINUE TO MONITOR.
[2018-03-18 05:02] LABS: BASOPHILS ABSOLUTE AUTO 0.03 K/mm3 (0.00-0.23); BASOPHILS PERCENT AUTO 0 % (0-2); EOSINOPHILS ABSOLUTE AUTO 0.38 K/mm3 (0.00-0.68); EOSINOPHILS PERCENT AUTO 5 % (0-6); Hematocrit 34.3 % (37.0-53.0); Hemoglobin 10.1 g/dL (13.5-17.5); IMMATURE GRAN ABSOLUTE AUTO 0.02 K/mm3 (0.00-0.10); IMMATURE GRAN PERCENT AUTO 0 % (0-1); LYMPHOCYTES ABSOLUTE AUTO 0.69 K/mm3 (0.84-5.20); LYMPHOCYTES PERCENT AUTO 8 % (21-46); MONOCYTES ABSOLUTE AUTO 1.11 K/mm3 (0.16-1.47); MONOCYTES PERCENT AUTO 13 % (4-13); Mean Corpuscular HGB 23.8 pg (26.0-34.0); Mean Corpuscular HGB Conc 29.4 g/dL (31.5-36.5); Mean Corpuscular Volume 81 fL (80-100); Mean Platelet Volume 9.2 fL (9.1-12.4); NEUTROPHILS ABSOLUTE AUTO 6.25 K/mm3 (1.96-9.15); NEUTROPHILS PERCENT AUTO 74 % (41-73); Platelet Count 235 K/mm3 (150-400); RDW Standard Deviation 52.7 fL (35.1-46.3); Red Blood Cell Count 4.24 M/mm3 (4.30-5.90); White Blood Cell Count 8.48 K/mm3 (4.00-11.30)
[2018-03-18 05:17] LABS: International Normalized Ratio 1.29; Prothrombin Time Results 13.1 Sec (9.7-11.5)
[2018-03-18 05:26] LABS: Alanine Aminotransfer (ALT/SGP 21 U/L (12-78); Albumin, Blood 2.2 g/dL (3.4-5.0); Albumin/Globulin Ratio 0.5 (0.8-1.8); Alk Phos 62 U/L (50-136); Anion Gap 6 mmol/L (6-16); Aspartate Aminotrans (AST/SGOT 16 U/L (12-37); Bilirubin, Total 0.3 mg/dL (0.1-1.0); Blood Urea Nitrogen 14 mg/dL (8-24); Bun/Creatinine Ratio 22.3 (12.0-20.0); CO2, Blood 27 mmol/L (21-32); Chloride, Blood 108 mmol/L (98-108); Creatinine, Blood 0.63 mg/dL (0.60-1.20); Globulin, Blood 4.1 g/dL (2.2-4.0); Glomerular Filtration Rate >60 (60-); Glucose, Blood 84 mg/dL (70-99); Potassium, Blood 3.8 mmol/L (3.5-5.5); Sodium, Blood 141 mmol/L (136-145); Total Protein, Blood 6.3 g/dL (6.4-8.2)
--- NOTE | 2018-03-18 08:05 | NUR ---
PT MARINO WOODRUFF HAS MS. GROSS MOVEMENT AT RT ARM ONLY. LIGHT PN IN LEG. NO MED REQ AT THIS TIME. H/R REG, NO MURMER NOTED. PER TLE: NSR AT 75. LUNGS CLEAR, RESP EASY, UNLABORED, ON 2L 02. BT X4 HAS ILLIOSTOMY. DRAINING SOFT LIQUIDY STOOL. VOIDS CLEARY CATH. DARK YELLOW CLOUDY FLUID DRAINING. DR SOTO NOTIFIED. BED IN LOW POSITION,, CALL LITE IN REACH, CALLS APPROP
--- NOTE | 2018-03-18 15:49 | NUR ---
Pt gave this nursing faculty permission to work with his nurse tomorrow, and to view his medical records.
--- NOTE | 2018-03-18 18:50 | NUR ---
PT PLEASANT TODAY. NO C/O PAIN. USES CALL LITE TO CALL SOMEONE TO ROOM OFTEN TO VISIT. DR SOTO OKAYED GIVE COUMADIN THIS ASHLI, PT UNDERSTOOD MAY HAVE SURG SHORTLY IN [place]. DR SOTO STATES NOT THIS WEEK. HE TO VISIT WITH PT TOMORROW AM AND DISCUSS. NO OTHER CONCERNS AT THIS TIME BED IN LOW POSITION, CALL LITE IN REACH, CALLS APPROP
[2018-03-19 05:11] LABS: International Normalized Ratio 1.49
--- NOTE | 2018-03-19 06:13 | NUR ---
SHIFT SUMMARY PT IS A&O, BUT VERY SLOW TO RESPOND R/T MS. MINIMAL, GROSS MOTOR MOVEMENT IN RH ONLY. DIFFICULT TO REPOSITION, MORBIDLY OBESE AND NONCOMPLIANT WITH KEEPING OFF BUTTOCKS. BLE'S ELEVATED ON PILLOWS AND IN PADDED BOOTS. SCD'S ON BLE'S. ILEOSTOMY LLQ, PATENT. CHRONIC CLEARY CATH, R/T NEUROGENIC BLADDER. PT TX FROM RH FOR UROSEPSIS. HX DVT, PE, UTI, AND MS. PT IN CONTACT ISO FOR ESBL IN URINE AND BLOOD. LUNGS T/O WITH FINE CRACKLES IN LLL ONLY AT TIME OF ASSESSMENT. TOUCH CALL LT IN REACH. PT ABLE TO USE APPROPRIATELY.
[2018-03-19] MEDS ORDERED: MEROPENEM1 GM IV (14:01)
--- NOTE | 2018-03-19 19:17 | NUR ---
SHIFT SUMMARY MAKAYLA DENIED PAIN THIS SHIFT. TELE AND MIVF DISCONTINUED. DC TOMORROW TO [facility]. CLEARY INTACT AND DRAINING. ASSISTED TO EAT ALL MEALS, GOOD APPETITE. Q2 TURN ALLOWED, HE OFTEN DECLINED. ILEOSTOMY DRAINED WELL. TOOK MEDS PRESCRIBED.
--- NOTE | 2018-03-20 05:43 | NUR ---
SHIFT SUMMARY NO ACUTE CHANGES TO PRESENT THIS SHIFT. PT AWAKE DURING BS REPORT. PT FINALLY AGREED TO HAVING MEPILEX PLACED TO COCCYX AREA BREAKDOWN; "A SMALL ONE". PT IS DIFFICULT TO REPOSITION DUE MORBID OBESITY, WELL BEING UNCO-OP. PT WILL NOT ALLOW TURNING TO ONE SIDE OR THE OTHER TO GET HIM OFF OF HIS BUTTOCKS. HAVE ATTEMPTED TO EDU PT ON NEED TO BE REPOSITIONED AND KEPT OFF PRESSURE AREAS, BUT PT IS APATHETIC TO IMPORTANT AREAS OF CARE. SM AREA OF REDNESS OR ABRASION, ON RLQ OF ABD, BELOW OSTOMY BAG; LESS THAN SIZE OF A QUARTER. IT APPEARS THAT OSTOMY BAG RUBS ON THAT AREA. NO C/O PAIN. REPOSITIONED BLE'S ON PILLOWS TO PT'S SATISFACTION. PT ABLE TO SLIGHTLY MOVES TOES ON BOTH FEET, BUT OTHERWISE DOES NOT USE LEGS OR MOVE THEM. PER SHIFT REPORT, PT TO BE D/C'D BACK TO RH TODAY. SOFT TOUCH CALL LT IN REACH. PT ABLE TO USE APPROPRIATELY.
[2018-03-20 05:56] LABS: International Normalized Ratio 1.72; Prothrombin Time Results 17.2 Sec (9.7-11.5)
--- NOTE | 2018-03-20 13:48 | NUR ---
PATIENT DISCHARGE: PATIENT DISCHARGED/ XFR TO SNF ([facility]) THIS SHIFT. MEDICATION RECONCILIATION COMPLETED; MED LIST FAXED TO [facility]; PG REMAINS IN R UA FOR SNF ADMINISTERED IV ABX. PT TRANSPORTED TO SNF IN RECLINING WHEELCHAIR. PATIENT DEPARTED MEDICAL FLOOR AT 1330. REPORT CALLED TO JULIETH OLMEDO, AT [facility].
== END 2018-03-20 13:53 | DRG 698 ==
LOC: DELPENDDIS → ER 19:41 → PCU 22:04 → MEDS 23:40 → PCU 03-16 10:56 → MEDS 03-16 17:10 → ENPENDDIS 03-19 13:27 → MEDS 03-20 05:39
PROVIDERS: Emergency Medicine; Hospitalist; ADMIT Internal Medicine
DX: T83.511A Infection and inflammatory reaction due to indwelling urethral catheter, initial encounter (principal); A41.9 Sepsis, unspecified organism; N39.0 Urinary tract infection, site not specified; G35 Multiple sclerosis; N31.9 Neuromuscular dysfunction of bladder, unspecified; F32.9 Major depressive disorder, single episode, unspecified; Z66 Do not resuscitate; G89.29 Other chronic pain; M54.9 Dorsalgia, unspecified; Z93.2 Ileostomy status; Z96.89 Presence of other specified functional implants; Z74.01 Bed confinement status; Z87.440 Personal history of urinary (tract) infections; Z86.718 Personal history of other venous thrombosis and embolism; Z88.1 Allergy status to other antibiotic agents; Z88.5 Allergy status to narcotic agent; Z88.2 Allergy status to sulfonamides; Z88.8 Allergy status to other drugs, medicaments and biological substances
CPT/HCPCS: 36415; 51702; 74176; 80053; 81001; 83605; 83735; 84100; 85025; 85610; 86140; 87040; 87077; 87086; 87106; 87186; 96361; 96365; 99285-25; C1751; J2185; J7030

== ENCOUNTER → 2018-03-22 | Outpatient (CLI) | payer OTHER ==
[~2018-03-22] MED LIST changes: +MEROPENEM1 GM IV
[2018-03-22 08:44] LABS: International Normalized Ratio 1.72; Prothrombin Time Results 17.4 Sec (9.7-11.5)
== END | disposition home or self-care (01) ==
LOC: LAB RH 07:05 → EDSTATUS 08:56
PROVIDERS: Internal Medicine
DX: Z79.01 Long term (current) use of anticoagulants (principal); Z51.81 Encounter for therapeutic drug level monitoring
CPT/HCPCS: 36415; 85610

== ENCOUNTER 2018-05-06 14:52 | Emergency (ER) | payer OTHER ==
[~2018-05-06] VITALS: Ht 198.1 cm; Wt 123.8 kg
[2018-05-06 15:16] LABS: Source, Urine Clean Catch
[2018-05-06 15:21] LABS: BASOPHILS ABSOLUTE AUTO 0.03 K/mm3 (0.00-0.23); BASOPHILS PERCENT AUTO 0 % (0-2); EOSINOPHILS ABSOLUTE AUTO 0.23 K/mm3 (0.00-0.68); EOSINOPHILS PERCENT AUTO 2 % (0-6); Hematocrit 42.6 % (37.0-53.0); Hemoglobin 12.6 g/dL (13.5-17.5); IMMATURE GRAN ABSOLUTE AUTO 0.04 K/mm3 (0.00-0.10); IMMATURE GRAN PERCENT AUTO 0 % (0-1); LYMPHOCYTES ABSOLUTE AUTO 0.71 K/mm3 (0.84-5.20); LYMPHOCYTES PERCENT AUTO 6 % (21-46); MONOCYTES ABSOLUTE AUTO 1.49 K/mm3 (0.16-1.47); MONOCYTES PERCENT AUTO 12 % (4-13); Mean Corpuscular HGB 24.6 pg (26.0-34.0); Mean Corpuscular HGB Conc 29.6 g/dL (31.5-36.5); Mean Corpuscular Volume 83 fL (80-100); Mean Platelet Volume 8.8 fL (9.1-12.4); NEUTROPHILS PERCENT AUTO 80 % (41-73); Platelet Count 310 K/mm3 (150-400); RDW Coefficient Variation 16.5 % (11.7-14.2); RDW Standard Deviation 50.3 fL (35.1-46.3); Red Blood Cell Count 5.13 M/mm3 (4.30-5.90)
[2018-05-06 15:32] LABS: Appearance, Urine Cloudy (Clear); Bilirubin, Urine Neg (Neg); Blood, Urine 5+ (Neg); Color, Urine Yellow (P-Yellow); Glucose Qualitative, Urine Neg (Neg); Ketones, Urine Neg (Neg); Leukocyte Esterase, Urine 3+ (Neg); Nitrite, Urine Pos (Neg); Protein, Urine 2+ (Neg); Specific Gravity, Urine 1.015 (1.003-1.022); Urobilinogen, Urine NORM (Normal)
[2018-05-06 15:43] LABS: Alanine Aminotransfer (ALT/SGP 43 U/L (12-78); Albumin/Globulin Ratio 0.6 (0.8-1.8); Alk Phos 89 U/L (50-136); Anion Gap 4 mmol/L (6-16); Aspartate Aminotrans (AST/SGOT 29 U/L (12-37); Bilirubin, Total 0.3 mg/dL (0.1-1.0); Blood Urea Nitrogen 11 mg/dL (8-24); Bun/Creatinine Ratio 15.6 (12.0-20.0); CO2, Blood 30 mmol/L (21-32); Calcium, Blood 8.7 mg/dL (8.5-10.1); Chloride, Blood 101 mmol/L (98-108); Globulin, Blood 5.2 g/dL (2.2-4.0); Glomerular Filtration Rate >60 (60-); Glucose, Blood 123 mg/dL (70-99); Potassium, Blood 4.4 mmol/L (3.5-5.5); Sodium, Blood 135 mmol/L (136-145); Total Protein, Blood 8.2 g/dL (6.4-8.2)
[2018-05-06 15:50] LABS: Red Blood Cells, Urine TNTC /hpf (0-2); White Blood Cells, Urine TNTC /hpf (0-5)
[2018-05-06 15:51] LABS: Bacteria Many /hpf; Calcium Oxalate Crystals Rare /hpf; Squamous Epithelial Cells Few /hpf (Few)
== END 2018-05-06 20:31 | disposition home or self-care (01) ==
LOC: ER 14:52
PROVIDERS: Emergency Medicine
DX: A41.9 Sepsis, unspecified organism (principal); F32.9 Major depressive disorder, single episode, unspecified; F41.9 Anxiety disorder, unspecified; Z87.891 Personal history of nicotine dependence; Z88.2 Allergy status to sulfonamides; Z88.5 Allergy status to narcotic agent; Z88.8 Allergy status to other drugs, medicaments and biological substances; Z88.6 Allergy status to analgesic agent; Z79.899 Other long term (current) drug therapy; Z79.01 Long term (current) use of anticoagulants
CPT/HCPCS: 36415; 71046; 80053; 81001; 83605; 85025; 87086; 96361; 96365; 96367; 99284-25; J0694; J0696; J7030

== ENCOUNTER 2018-06-25 13:11 | Emergency (ER) | payer OTHER ==
[~2018-06-25] VITALS: Ht 198.1 cm; Wt 122.5 kg
[2018-06-25 14:24] LABS: International Normalized Ratio 1.06; Prothrombin Time Results 11.2 Sec (9.7-11.5)
== END 2018-06-25 15:45 | disposition home or self-care (01) ==
LOC: ER 13:11
PROVIDERS: Emergency Medicine
DX: S00.01XA Abrasion of scalp, initial encounter (principal); S50.812A Abrasion of left forearm, initial encounter; G35 Multiple sclerosis; F41.9 Anxiety disorder, unspecified; F32.9 Major depressive disorder, single episode, unspecified; M54.9 Dorsalgia, unspecified; G89.29 Other chronic pain; Z88.2 Allergy status to sulfonamides; Z88.5 Allergy status to narcotic agent; Z88.8 Allergy status to other drugs, medicaments and biological substances; Z91.048 Other nonmedicinal substance allergy status; Z79.899 Other long term (current) drug therapy; Z79.01 Long term (current) use of anticoagulants; Z87.440 Personal history of urinary (tract) infections; Z86.718 Personal history of other venous thrombosis and embolism; Z87.891 Personal history of nicotine dependence; W22.8XXA Striking against or struck by other objects, initial encounter
CPT/HCPCS: 70450; 85610; 99284-25

== ENCOUNTER 2018-06-28 21:03 | Emergency (ER) | payer OTHER ==
[~2018-06-28] VITALS: Ht 188 cm; Wt 104.3 kg
[2018-06-28] MEDS ORDERED: MIDO5 PO (23:04)
[2018-06-28] MEDS ORDERED: ELIQUIS5 MG PO (23:08)
[2018-06-28] MEDS ORDERED: UROCIT-K5 MEQ PO (23:10)
[2018-06-28 23:40] LABS: BASOPHILS ABSOLUTE AUTO 0.04 K/mm3 (0.00-0.23); BASOPHILS PERCENT AUTO 0 % (0-2); EOSINOPHILS ABSOLUTE AUTO 0.57 K/mm3 (0.00-0.68); EOSINOPHILS PERCENT AUTO 5 % (0-6); Hemoglobin 12.2 g/dL (13.5-17.5); IMMATURE GRAN ABSOLUTE AUTO 0.02 K/mm3 (0.00-0.10); IMMATURE GRAN PERCENT AUTO 0 % (0-1); LYMPHOCYTES ABSOLUTE AUTO 0.96 K/mm3 (0.84-5.20); LYMPHOCYTES PERCENT AUTO 9 % (21-46); MONOCYTES ABSOLUTE AUTO 0.99 K/mm3 (0.16-1.47); MONOCYTES PERCENT AUTO 9 % (4-13); Mean Corpuscular HGB 24.9 pg (26.0-34.0); Mean Corpuscular HGB Conc 29.8 g/dL (31.5-36.5); Mean Corpuscular Volume 84 fL (80-100); NEUTROPHILS ABSOLUTE AUTO 7.91 K/mm3 (1.96-9.15); NEUTROPHILS PERCENT AUTO 75 % (41-73); Platelet Count 297 K/mm3 (150-400); RDW Coefficient Variation 16.8 % (11.7-14.2); RDW Standard Deviation 51.8 fL (35.1-46.3); White Blood Cell Count 10.49 K/mm3 (4.00-11.30)
[2018-06-28 23:54] LABS: International Normalized Ratio 1.01; Prothrombin Time Results 10.7 Sec (9.7-11.5)
[2018-06-28 23:59] LABS: Source, Urine Catheter
[2018-06-29] LABS: Alanine Aminotransfer (ALT/SGP 37 U/L (12-78); Albumin/Globulin Ratio 0.7 (0.8-1.8); Alk Phos 78 U/L (50-136); Anion Gap 7 mmol/L (6-16); Aspartate Aminotrans (AST/SGOT 20 U/L (12-37); Bilirubin, Total 0.4 mg/dL (0.1-1.0); Blood Urea Nitrogen 15 mg/dL (8-24); Bun/Creatinine Ratio 20.3 (12.0-20.0); CO2, Blood 30 mmol/L (21-32); Calcium, Blood 8.8 mg/dL (8.5-10.1); Chloride, Blood 104 mmol/L (98-108); Creatinine, Blood 0.74 mg/dL (0.60-1.20); Globulin, Blood 4.6 g/dL (2.2-4.0); Glomerular Filtration Rate >60 (60-); Glucose, Blood 118 mg/dL (70-99); Potassium, Blood 4.1 mmol/L (3.5-5.5); Sodium, Blood 141 mmol/L (136-145); Total Protein, Blood 7.6 g/dL (6.4-8.2); Troponin I <0.015 ng/mL (0.000-0.040)
[2018-06-29 00:05] LABS: Bilirubin, Urine Neg (Neg); Blood, Urine 4+ (Neg); Glucose Qualitative, Urine Neg (Neg); Ketones, Urine Neg (Neg); Leukocyte Esterase, Urine 3+ (Neg); Nitrite, Urine Pos (Neg); Protein, Urine 2+ (Neg); Specific Gravity, Urine 1.015 (1.003-1.022); Urobilinogen, Urine NORM (Normal)
[2018-06-29 00:09] LABS: Appearance, Urine Hazy (Clear); Color, Urine Yellow (P-Yellow)
[2018-06-29 00:12] LABS: Amorphous Light (0-Heavy); Bacteria Mod /hpf; Red Blood Cells, Urine 0-2 /hpf (0-2); Squamous Epithelial Cells Not Seen /hpf (Few); White Blood Cells, Urine 50-100 /hpf (0-5)
== END 2018-06-29 01:23 | disposition home or self-care (01) ==
LOC: ER 21:03
PROVIDERS: Emergency Medicine
DX: R60.0 Localized edema (principal); G35 Multiple sclerosis; Z88.2 Allergy status to sulfonamides; Z88.5 Allergy status to narcotic agent; Z88.6 Allergy status to analgesic agent; Z88.8 Allergy status to other drugs, medicaments and biological substances; Z79.899 Other long term (current) drug therapy; Z87.440 Personal history of urinary (tract) infections
CPT/HCPCS: 36415; 80053; 81001; 83880; 84484; 85025; 85610; 87086; 93005; 93010; 99284-25

== ENCOUNTER 2018-10-02 13:37 | Inpatient (IN) | payer OTHER ==
[~2018-10-02] VITALS: Ht 193 cm; Wt 116.7 kg
[~2018-10-02 13:37] MED LIST changes: +ELIQUIS5 MG PO; -GABA600 PO; +Gabapentin600 MG PO; +UROCIT-K5 MEQ PO
[2018-10-02 14:57] LABS: BASOPHILS ABSOLUTE AUTO 0.05 K/mm3 (0.00-0.23); BASOPHILS PERCENT AUTO 0 % (0-2); EOSINOPHILS ABSOLUTE AUTO 0.32 K/mm3 (0.00-0.68); EOSINOPHILS PERCENT AUTO 2 % (0-6); Hematocrit 52.8 % (37.0-53.0); Hemoglobin 15.3 g/dL (13.5-17.5); IMMATURE GRAN ABSOLUTE AUTO 0.04 K/mm3 (0.00-0.10); IMMATURE GRAN PERCENT AUTO 0 % (0-1); LYMPHOCYTES ABSOLUTE AUTO 1.15 K/mm3 (0.84-5.20); LYMPHOCYTES PERCENT AUTO 9 % (21-46); MONOCYTES ABSOLUTE AUTO 0.44 K/mm3 (0.16-1.47); MONOCYTES PERCENT AUTO 3 % (4-13); Mean Corpuscular HGB 23.9 pg (26.0-34.0); Mean Corpuscular Volume 83 fL (80-100); Mean Platelet Volume 9.1 fL (9.1-12.4); NEUTROPHILS ABSOLUTE AUTO 11.48 K/mm3 (1.96-9.15); NEUTROPHILS PERCENT AUTO 85 % (41-73); Platelet Count 337 K/mm3 (150-400); RDW Coefficient Variation 18.1 % (11.7-14.2); RDW Standard Deviation 49.6 fL (35.1-46.3); White Blood Cell Count 13.48 K/mm3 (4.00-11.30)
[2018-10-02 15:17] LABS: Alanine Aminotransfer (ALT/SGP 55 U/L (12-78); Albumin, Blood 3.5 g/dL (3.4-5.0); Albumin/Globulin Ratio 0.6 (0.8-1.8); Alk Phos 115 U/L (50-136); Anion Gap 7 mmol/L (6-16); Aspartate Aminotrans (AST/SGOT 45 U/L (12-37); Bilirubin, Total 0.5 mg/dL (0.1-1.0); Blood Urea Nitrogen 14 mg/dL (8-24); Bun/Creatinine Ratio 14.8 (12.0-20.0); CO2, Blood 28 mmol/L (21-32); Calcium, Blood 9.4 mg/dL (8.5-10.1); Chloride, Blood 102 mmol/L (98-108); Creatinine, Blood 0.95 mg/dL (0.60-1.20); Globulin, Blood 5.7 g/dL (2.2-4.0); Glomerular Filtration Rate >60 (60-); Glucose, Blood 103 mg/dL (70-99); Potassium, Blood 4.7 mmol/L (3.5-5.5); Sodium, Blood 137 mmol/L (136-145); Total Protein, Blood 9.2 g/dL (6.4-8.2)
[2018-10-02 15:32] LABS: Source, Urine Clean Catch
[2018-10-02 15:40] LABS: Bilirubin, Urine Neg (Neg); Blood, Urine 5+ (Neg); Glucose Qualitative, Urine Neg (Neg); Ketones, Urine 1+ (Neg); Leukocyte Esterase, Urine 3+ (Neg); Nitrite, Urine Pos (Neg); Protein, Urine 3+ (Neg); Specific Gravity, Urine 1.015 (1.003-1.022); Urobilinogen, Urine NORM (Normal); pH, Urine 6.5 (5.0-8.0)
[2018-10-02 15:54] LABS: Appearance, Urine Cloudy (Clear); Color, Urine Yellow (P-Yellow)
[2018-10-02 15:55] LABS: Red Blood Cells, Urine TNTC /hpf (0-2); White Blood Cells, Urine TNTC /hpf (0-5)
[2018-10-02 15:56] LABS: Bacteria Many /hpf; Squamous Epithelial Cells Rare /hpf (Few)
[2018-10-02 16:32] LABS: International Normalized Ratio 1.03; Prothrombin Time Results 10.9 Sec (9.7-11.5)
[2018-10-02] MEDS ORDERED: BENADRYL25 MG PO (16:33)
[2018-10-02] MEDS ORDERED: MUCUS ER1200 MG PO (16:34)
--- NOTE | 2018-10-03 07:00 | NUR ---
THIS RN COULD HEAR FROM THE HALLWAY PT VOMITING AND COUGHING. PT WAS FOUND WITH EMESIS ON HIS SHIRT AND SHEETS. PT WAS TACHYPNEC AND USING ACCESSORY MUSCLES. PT WAS AUDIBLY WHEEZY WITH CRACKLES. PT WAS CLEANED UP. BIOX WAS 85% ON 2L VIA NC. OXYGEN TURNED UP TO 4L VIA NC. RESP THERAPY WAS NOTIFIED OF PT CHANGES. I SUCTIONED THE PATIENT WITH THE YONKUR. PT IS REFUSING NASOTRACHEAL SUCTIONING AT THIS TIME. PT ALSO IS REFUSING TO COUGH. OTHER VSS.PT DENIES FURHTER NEEDS AT THIS TIME.
--- NOTE | 2018-10-03 07:12 | NUR ---
ADMIT NOTE/SHIFT SUMMARY PATIENT ADMITED FROM THE ER EARLIER THIS SHIFT AND WAS TRANSFERED OVER VIA SLIDER SHEET. PATIENT UNABLE TO MOVE BILATERAL LEGS OR LEFT ARM, PATIENT APPEARS TO HAVE GROSS MOVEMENT IN RIGHT ARM. PATIENT REPORTS HE USES A POWER WHEELCHAIR AT [facility]. A STAFF MEMBER FROM [facility] CALLED TO CHECK ON PATIENT, PATIENT GAVE CONCENT TO UPDATE [facility] STAFF ON HIS CONDITION AND DIAGNOSIS. IV FLUIDS AND ABX RUNNING PER ORDERS. PATIENT MEDICATED FOR PAIN PER EMAR. PATIENT APPEARED TO NAP ON AND OFF THROUGHOUT THE NIGHT. PATIENT ON 2L VIA N/C TO MAINTAIN O2 STATS ABOVE 92%. HEELS FLOATED WITH PILLOWS. PATIENT TURNED Q2H. CHRONIC CLEARY CHANGED IN ER. SECURITY RETRIEVED PATIENT'S LEIJA AND LANYARD AND PUT IT IN THE SAFE PER PATIENT'S REQUEST. SLIP PLACED IN FRONT OF CHART. VITAL SIGNS CHARTED. WILL CONTINUE TO MONITOR PATIENT AND REPORT TO ONCOMING RN.
--- NOTE | 2018-10-03 10:32 | NUR ---
PATIENT BACK FROM XRAY, O2 SATURATION ON 6L O2 VIA NC IS 99%, TITRATED TO 5L O2.
--- NOTE | 2018-10-03 11:43 | NUR ---
PT O2 95% ON 5L O2 VIA NC, TITRATED TO 4L O2.
[2018-10-03 16:31] LABS: Hemoglobin 13.2 g/dL (13.5-17.5); Mean Platelet Volume 9.6 fL (9.1-12.4); Platelet Count 242 K/mm3 (150-400); RDW Coefficient Variation 17.4 % (11.7-14.2); RDW Standard Deviation 49.1 fL (35.1-46.3); Red Blood Cell Count 5.49 M/mm3 (4.30-5.90)
[2018-10-03 16:36] LABS: Mean Corpuscular Volume 80 fL (80-100)
[2018-10-03 16:39] LABS: Alanine Aminotransfer (ALT/SGP 44 U/L (12-78); Albumin, Blood 2.5 g/dL (3.4-5.0); Albumin/Globulin Ratio 0.6 (0.8-1.8); Alk Phos 95 U/L (50-136); Anion Gap 3 mmol/L (6-16); Aspartate Aminotrans (AST/SGOT 33 U/L (12-37); Bilirubin, Total 0.6 mg/dL (0.1-1.0); Blood Urea Nitrogen 19 mg/dL (8-24); Bun/Creatinine Ratio 19.5 (12.0-20.0); CO2, Blood 31 mmol/L (21-32); Chloride, Blood 106 mmol/L (98-108); Creatinine, Blood 0.97 mg/dL (0.60-1.20); Globulin, Blood 4.5 g/dL (2.2-4.0); Glomerular Filtration Rate >60 (60-); Glucose, Blood 120 mg/dL (70-99); Potassium, Blood 4.6 mmol/L (3.5-5.5); Sodium, Blood 140 mmol/L (136-145)
--- NOTE | 2018-10-03 16:57 | NUR ---
Initial Visit: Palliative Care Consult for Medically Fragile, and Readmission. Pt is A&O and reports a tolerable 5/10 pain in his abdomen. He reports mild anxiety due to anticipation of surgery. Engaged in therapeutic discussion regarding goals of care. Pt appears withdrawn and hestitant in engaging in conversation. Pt does report living at [facility] and is of [employer] abner. He denies need for nuclear cardiology technologist visit. Pt reports having a daughter who lives in [place] and a brother that lives locally. He states little contact with his brother due to his eccentric personality. Discussed concerns raised by staff of refusal of care such as lab draws. Pt reports that he likes to have his arm warmed up before blood draw takes place. Pt does report concern with having another bag placed on his body when the urostomy tube is place. He expresses concerns with the stigma of having bags on his body. He does aknowledge that the drain should be temporary. Pt closes his eyes often during visit. Offered to end the visit to allow him to rest and Pt is agreeable. Spoke with bedside nurse Rosita and discussed case. Palliative Care will remain available.
[2018-10-03 17:00] LABS: BAND PERCENT MAN 5 % (0-8); BASOPHILS ABSOLUTE MAN 0.22 K/mm3 (0.00-0.23); BASOPHILS PERCENT MAN 1 % (0-2); EOSINOPHILS PERCENT MAN 0 % (0-6); LYMPHOCYTES ABSOLUTE MAN 1.37 K/mm3 (0.84-5.20); LYMPHOCYTES PERCENT MAN 6 % (21-46); MONOCYTES ABSOLUTE MAN 1.37 K/mm3 (0.16-1.47); MONOCYTES PERCENT MAN 6 % (4-13); NEUTROPHILS ABSOLUTE MAN 19.92 K/mm3 (1.96-9.15); SEG NEUTROPHILS PERCENT MAN 82 % (41-73); TOTAL CELLS COUNTED 100
--- NOTE | 2018-10-03 17:59 | NUR ---
SHIFT SUMMARY PT A&Ox4. SLOW TO RESPOND. PT FLAT AND WITHDRAWN, ONLY ALLOWING CARE WHEN HE IS READY. REFUSING Q2 TURNING. GROSS MOVEMENT NOTED IN RUE, NO MOVEMENTS NOTED IN LUE AND BLE. PT REPORTS ABS PAIN, MEDICATED X1 WITH TYLENOL. PT HAD EPISODE OF EMESIS THIS AM, ZOFRAN AND REGLAN GIVEN. POSSIBLE ASP,NOTIFIED DR BAKER, [facility] AND CHEST XRAY. PT HAD INCREASED NEED OF O2 AFTER EMESIS, UP TO 6L O2 VIA NC THIS AM, TITRATED TO 4L O2 VIA NC, LS EXP WHEEZE LEFT SIDE, DIM BILATERAL BASES. BREATHING EVEN AND UNLABORED THIS AFTERNOON. CHRONIC CLEARY IN PLACED, PATENT AND DRAINING. OSTOMY IN RLQ, OUTPUT LIQUID BROWN. PLANS TO HAVE NEPHROSTOMY PLACED THIS EVENING. VSS. NO OTHER ACUTE CHANGES NOTED DURING SHIFT. WILL CONTINUE TO MONITOR UNTIL REPORT GIVEN TO ONCOMING RN.
--- NOTE | 2018-10-03 19:58 | NUR ---
PATIENT OUT FOR PROCEDURE PATIENT TAKEN FOR PROCEDUR AT APPROX 1900.
--- NOTE | 2018-10-03 21:00 | NUR ---
PATIENT BACK IN ROOM A QUICK REPORT RECIEVED AT APPROX 2030 FROM [facility]. PATIENT BROUGHT BACK TO ROOM SHORTLY AFTER FROM PROCEDURE. PROCEDURE SITE DRESSING IS CLEAN AND DRY AT THIS TIME. PATIENT ALER AND ORIENTED. VITAL SIGNS CHARTED.
[2018-10-04 03:47] LABS: BASOPHILS ABSOLUTE AUTO 0.07 K/mm3 (0.00-0.23); BASOPHILS PERCENT AUTO 0 % (0-2); Hematocrit 43.3 % (37.0-53.0); Hemoglobin 12.6 g/dL (13.5-17.5); LYMPHOCYTES ABSOLUTE AUTO 0.77 K/mm3 (0.84-5.20); LYMPHOCYTES PERCENT AUTO 3 % (21-46); MONOCYTES ABSOLUTE AUTO 2.15 K/mm3 (0.16-1.47); MONOCYTES PERCENT AUTO 10 % (4-13); Mean Corpuscular HGB Conc 29.1 g/dL (31.5-36.5); Mean Corpuscular Volume 82 fL (80-100); Mean Platelet Volume 9.7 fL (9.1-12.4); Platelet Count 215 K/mm3 (150-400); RDW Coefficient Variation 17.1 % (11.7-14.2); Red Blood Cell Count 5.26 M/mm3 (4.30-5.90); White Blood Cell Count 22.73 K/mm3 (4.00-11.30)
[2018-10-04 03:48] LABS: EOSINOPHILS ABSOLUTE AUTO 0.29 K/mm3 (0.00-0.68); EOSINOPHILS PERCENT AUTO 1 % (0-6); IMMATURE GRAN ABSOLUTE AUTO 0.29 K/mm3 (0.00-0.10); IMMATURE GRAN PERCENT AUTO 1 % (0-1); NEUTROPHILS ABSOLUTE AUTO 19.16 K/mm3 (1.96-9.15); NEUTROPHILS PERCENT AUTO 84 % (41-73)
[2018-10-04 04:07] LABS: Albumin, Blood 2.4 g/dL (3.4-5.0); Anion Gap 4 mmol/L (6-16); Blood Urea Nitrogen 20 mg/dL (8-24); Bun/Creatinine Ratio 20.8 (12.0-20.0); CO2, Blood 33 mmol/L (21-32); Calcium, Blood 8.8 mg/dL (8.5-10.1); Chloride, Blood 107 mmol/L (98-108); Creatinine, Blood 0.96 mg/dL (0.60-1.20); Glomerular Filtration Rate >60 (60-); Glucose, Blood 120 mg/dL (70-99); Phosphorus, Blood 2.8 mg/dL (2.5-4.9); Potassium, Blood 4.3 mmol/L (3.5-5.5); Sodium, Blood 144 mmol/L (136-145)
--- NOTE | 2018-10-04 06:40 | NUR ---
SHIFT SUMMARY PATIENT CONTINUES TO BE ALERT AND ORIENTED THROUGHOUT THE NIGHT. POST OP VITLAS COMPLETED. PATIENT APPEARED TO SLEEP ON AND OFF THROUGHOUT THE NIGHT. IV FLUIDS AND ABX CONTINUE TO RUN PER ORDERS. PATIENT'S NEW NEPHROSTOMY TO THE LEFT SIDE IS DRAINING RED LIQUID AND APPEARS TO BE DRAINING WELL. PATIENT HAD NO COMPLAINTS OF NAUSEA LAST NIGHT. PATIENT TURNED Q2H AND HEELS FLOATED. PATIENT CURRENTLY SATING GREATER THAN 92% ON 2L O2 AT THIS TIME. WILL CONTINUE TO MONITOR PATIENT AND REPORT TO ONCOMING RN.
--- NOTE | 2018-10-04 17:10 | NUR ---
SHIFT SUMMARY PT REMAINS ALERT AND ORIENTED. PLEASANT, CALM AND COOPERATIVE WITH CARE. PT RESTING IN BED, PT ALLOWING TURNING CHARTED. ST TIM COMPLETED THIS AM. PT REPORTS NAUSEA THIS AM, MEDICATED PER EMAR, NO EMESIS. PT REPORTS ABD PAIN, DECLINES NEED FOR MEDICATION. PT DENIES SOB, TITRATED TO 1L O2 VIA NC, SPO2 >92%. CLEARY PATENT AND DRAINING. LEFT NEPHROSTOMY PATENT AND DRAINING, RED LIQUID; INSERTION SITE REMAINS UNCHANGED, C/D/I. OSTOMY CONTINUES WITH DARK BROWN LIQUID OUTPUT. PT RECEIVING IV ANTIBIOTICS. VSS. NO OTHER ACUTE CHANGES NOTED DURING SHIFT. WILL CONTINUE TO MONITOR. UNTIL REPORT GIVEN TO ONCOMING RN.
[2018-10-05 03:58] LABS: BASOPHILS ABSOLUTE AUTO 0.06 K/mm3 (0.00-0.23); BASOPHILS PERCENT AUTO 0 % (0-2); EOSINOPHILS ABSOLUTE AUTO 0.73 K/mm3 (0.00-0.68); EOSINOPHILS PERCENT AUTO 5 % (0-6); Hematocrit 39.8 % (37.0-53.0); Hemoglobin 11.8 g/dL (13.5-17.5); IMMATURE GRAN ABSOLUTE AUTO 0.07 K/mm3 (0.00-0.10); IMMATURE GRAN PERCENT AUTO 0 % (0-1); LYMPHOCYTES PERCENT AUTO 3 % (21-46); MONOCYTES ABSOLUTE AUTO 1.06 K/mm3 (0.16-1.47); MONOCYTES PERCENT AUTO 7 % (4-13); Mean Corpuscular HGB 24.4 pg (26.0-34.0); Mean Corpuscular HGB Conc 29.6 g/dL (31.5-36.5); Mean Corpuscular Volume 82 fL (80-100); Mean Platelet Volume 9.5 fL (9.1-12.4); NEUTROPHILS ABSOLUTE AUTO 13.52 K/mm3 (1.96-9.15); NEUTROPHILS PERCENT AUTO 85 % (41-73); Platelet Count 232 K/mm3 (150-400); RDW Coefficient Variation 17.2 % (11.7-14.2); RDW Standard Deviation 50.8 fL (35.1-46.3); Red Blood Cell Count 4.84 M/mm3 (4.30-5.90); White Blood Cell Count 15.94 K/mm3 (4.00-11.30)
[2018-10-05 04:14] LABS: Albumin, Blood 2.4 g/dL (3.4-5.0); Anion Gap 5 mmol/L (6-16); Blood Urea Nitrogen 19 mg/dL (8-24); Bun/Creatinine Ratio 26.2 (12.0-20.0); CO2, Blood 29 mmol/L (21-32); Calcium, Blood 8.6 mg/dL (8.5-10.1); Chloride, Blood 110 mmol/L (98-108); Creatinine, Blood 0.73 mg/dL (0.60-1.20); Glomerular Filtration Rate >60 (60-); Glucose, Blood 111 mg/dL (70-99); Phosphorus, Blood 2.9 mg/dL (2.5-4.9); Potassium, Blood 4.2 mmol/L (3.5-5.5); Sodium, Blood 144 mmol/L (136-145)
--- NOTE | 2018-10-05 06:02 | NUR ---
SHIFT SUMMARY PT A&O X4. VSS. LUNG SOUNDS CLEAR, DIM IN BASES. SPO2 > 92% ON 1L NC. MONITOR SHOWS NSR/ST, HR 80-110. PT BEDBOUND, REQUIRING 2 PERSON MAX ASSIST Q2H REPOSITIONING. PT'S R SIDE STRONGER THAN L SIDE. PT ABLE TO MINIMALLY LIFT L ARM, UNABLE TO MOVE LEFT LEG/FOOT/TOES. PT ABLE TO WIGGLE R TOES ONLY. CHRONIC CLEARY CATH PATENT AND DRAINING DARK YELLOW URINE. L NEPHROSTOMY PATENT AND DRAINING DARK RED/BROWN LIQUID. COLOSTOMY DRAINING DARK BROWN/GREEN LIQUID STOOL W/ CHUNKS. COLOSTOMY BAG REQUIRING FREQUENT EMPTYING OF ACCUMULATED GAS. BLE ELEVATED W/ PILLOWS. WILL CONTINUE TO MONITOR AND PROVIDE CARE UNTIL REPORT OFF TO DAY SHIFT RN.
--- NOTE | 2018-10-05 07:37 | NUR ---
ASSUMED CARE REPORT FROM JULIETH SOLIMAN. PATIENT IN ISOLATION FOR ESBL IN URINE. NEPHROSTOMY IN PLACE AND DRAINING, SECURED TO LEFT BACK. OSTOMY BAG WITH SMALL AMOUNT OF LOMBARDI STOOL. FLAT AFFECT. ASKS TO BE COVERED UP WITH CALL LIGHT AT [facility].
--- NOTE | 2018-10-05 08:00 | NUR ---
MD VISIT DR. ANDRADE IN. STATUS CHANGE TO MED/NO TELE
--- NOTE | 2018-10-05 15:09 | NUR ---
LUNCH HELD PATIENT IS SLEEPING. GABAPENTIN ALSO HELD. CHECKING Q1 ON PT.
--- NOTE | 2018-10-05 15:10 | NUR ---
PAS WERE REMOVED FROM PATIENT THEY WERE CAUSING RED COVARRUBIAS ON EDEMETOUS LE'S. OPEN WEEPING IN ONE SPOT LLE OPEN TO AIR
[2018-10-06 03:57] LABS: BASOPHILS ABSOLUTE AUTO 0.05 K/mm3 (0.00-0.23); BASOPHILS PERCENT AUTO 1 % (0-2); EOSINOPHILS PERCENT AUTO 6 % (0-6); Hemoglobin 11.8 g/dL (13.5-17.5); IMMATURE GRAN ABSOLUTE AUTO 0.03 K/mm3 (0.00-0.10); IMMATURE GRAN PERCENT AUTO 0 % (0-1); LYMPHOCYTES ABSOLUTE AUTO 0.68 K/mm3 (0.84-5.20); LYMPHOCYTES PERCENT AUTO 6 % (21-46); MONOCYTES ABSOLUTE AUTO 1.08 K/mm3 (0.16-1.47); MONOCYTES PERCENT AUTO 10 % (4-13); Mean Corpuscular HGB 24.1 pg (26.0-34.0); Mean Corpuscular HGB Conc 29.5 g/dL (31.5-36.5); Mean Corpuscular Volume 82 fL (80-100); Mean Platelet Volume 9.6 fL (9.1-12.4); NEUTROPHILS ABSOLUTE AUTO 8.34 K/mm3 (1.96-9.15); NEUTROPHILS PERCENT AUTO 77 % (41-73); Platelet Count 247 K/mm3 (150-400); RDW Standard Deviation 50.2 fL (35.1-46.3); Red Blood Cell Count 4.89 M/mm3 (4.30-5.90); White Blood Cell Count 10.78 K/mm3 (4.00-11.30)
[2018-10-06 04:11] LABS: Albumin, Blood 2.5 g/dL (3.4-5.0); Anion Gap 5 mmol/L (6-16); Blood Urea Nitrogen 18 mg/dL (8-24); Bun/Creatinine Ratio 24.2 (12.0-20.0); CO2, Blood 32 mmol/L (21-32); Chloride, Blood 107 mmol/L (98-108); Creatinine, Blood 0.74 mg/dL (0.60-1.20); Glomerular Filtration Rate >60 (60-); Glucose, Blood 101 mg/dL (70-99); Phosphorus, Blood 3.6 mg/dL (2.5-4.9); Sodium, Blood 144 mmol/L (136-145)
--- NOTE | 2018-10-06 04:58 | NUR ---
SHIFT SUMMARY: PATIENT NEPHROSTOMY, CLEARY AND OSTOMY C/D/I. VSS, CALL LIGHT WITHIN REACH, BED LOW AND LOCKED.
--- NOTE | 2018-10-06 06:27 | NUR ---
PATIENT REFUSED TURN
--- NOTE | 2018-10-07 06:08 | NUR ---
SHIFT SUMMARY PT IS A 63 Y/O MALE, ADMITTED FOR SEPSIS. HE IS A&O X 4, WITH A HX OF MS AND WITH MINIMAL GROSS BODY MOVEMENT. HE DENIED ANY COMPLAINTS OF ACUTE PAIN, NAUSEA OR SOB. VITALS REMAINED STABLE, AND PT'S O2 STAYED > 94% ON 1L OF O2. PT SLEPT WELL THROUGH THE NIGHT. NO OTHER ACUTE CHANGES IN PT CONDITION NOTED. WILL CONTINUE TO MONITOR AND TREAT PER EMAR UNTIL HAND OFF TO DAY SHIFT.
--- NOTE | 2018-10-07 10:05 | NUR ---
PRAMODADONIS NURSE NOTIFY RECEIVED FROM DR ANDRADE. CALLED TOMAS MIX IN [employer]NA[employer] TO INQUIRE ABOUT TRANSFER BACK HOME. NOT SURE IF [facility] WILL ACCEPT HIM R/T TO THE NEW NEPHROSTOMY TUBE. WHEN THIS NURSE HEARS BACK. WILL CALL DR ANDRADE. CONTINUE POT.
--- NOTE | 2018-10-07 13:30 | NUR ---
DISCHARGE REPORT CALLED TO [facility] PRE DISCHARGE. [facility]. PT ALERT AND ORIENTED. BELONGINGS RETURNED FROM THE SAFE IN SECURITY OFFICE. PLACED LEIJA ON LANYA AROUND PT NECK REQUESTED. 5 PERSON TRANSFER WITH SLIDER SHEET. NEPHROSTOMY TUBE PATENT AFTER TRANSFER. SITE VERIFIED AND CHECKED AFTER PLACEMENT ON [facility]. CONTINUE POT.
== END 2018-10-07 13:29 | DRG 871 ==
LOC: ER 13:37 → PCU 17:19
PROVIDERS: Emergency Medicine; Family Medicine; ADMIT Internal Medicine
DX: A41.9 Sepsis, unspecified organism (principal); J18.9 Pneumonia, unspecified organism; J96.01 Acute respiratory failure with hypoxia; N13.2 Hydronephrosis with renal and ureteral calculous obstruction; R65.20 Severe sepsis without septic shock; Z93.6 Other artificial openings of urinary tract status; Z86.718 Personal history of other venous thrombosis and embolism; G35 Multiple sclerosis; D63.8 Anemia in other chronic diseases classified elsewhere; Z96.0 Presence of urogenital implants; Z66 Do not resuscitate; Z88.6 Allergy status to analgesic agent; Z88.5 Allergy status to narcotic agent; Z88.2 Allergy status to sulfonamides; Z88.8 Allergy status to other drugs, medicaments and biological substances; Z91.018 Allergy to other foods; Z79.899 Other long term (current) drug therapy; Z87.891 Personal history of nicotine dependence
CPT/HCPCS: 36415; 50432; 51702; 51798; 71046; 74176; 80053; 80069; 81001; 83605; 83690; 85025; 85610; 85730; 87040; 87086; 92610; 93005; 93010; 96361-59; 96365-59; 99152; 99153; 99285-25; A9270; C1729; C1769; C1894; J2185; J2250; J2405; J2765; J7030; J7040; J7050; J7120; Q9967

== ENCOUNTER 2018-10-19 21:46 | Emergency (ER) | payer OTHER ==
[~2018-10-19] VITALS: Ht 198.1 cm; Wt 113.4 kg
[~2018-10-19 21:46] MED LIST changes: +BENADRYL25 MG PO; +MUCUS ER1200 MG PO
[2018-10-20 00:09] LABS: Source, Urine Catheter
[2018-10-20 00:16] LABS: Bilirubin, Urine Neg (Neg); Blood, Urine 5+ (Neg); Glucose Qualitative, Urine Neg (Neg); Ketones, Urine Neg (Neg); Leukocyte Esterase, Urine 3+ (Neg); Nitrite, Urine Pos (Neg); Protein, Urine 2+ (Neg); Urobilinogen, Urine NORM (Normal)
[2018-10-20 00:28] LABS: Amorphous Mod ({null, 0-Heavy}); Appearance, Urine Cloudy (Clear); Bacteria Many /hpf; Color, Urine Yellow (P-Yellow); Squamous Epithelial Cells Not Seen /hpf (Few); White Blood Cells, Urine TNTC /hpf (0-5)
== END 2018-10-20 00:03 | disposition home or self-care (01) ==
LOC: ER 21:46
PROVIDERS: Emergency Medicine
DX: Z43.6 Encounter for attention to other artificial openings of urinary tract (principal); R10.9 Unspecified abdominal pain; Z88.2 Allergy status to sulfonamides; Z88.5 Allergy status to narcotic agent; Z88.8 Allergy status to other drugs, medicaments and biological substances; Z79.899 Other long term (current) drug therapy; Z87.891 Personal history of nicotine dependence
CPT/HCPCS: 76770; 81001; 87086; 99284-25

== ENCOUNTER 2018-10-24 07:15 | Emergency (ER) | payer OTHER ==
[~2018-10-24] VITALS: Ht 198.1 cm; Wt 114.3 kg
[2018-10-24] MEDS ORDERED: FAMO40 PO ×2 (07:30→07:32)
[2018-10-24] MEDS ORDERED: DULO30 PO (07:30)
[2018-10-24] MEDS ORDERED: METO10 PO (07:30)
[2018-10-24] MEDS ORDERED: ELIQUIS2.5 MG PO (07:31)
[2018-10-24] MEDS ORDERED: Naltrexone HCl50 MG PO (07:31)
[2018-10-24] MEDS ORDERED: CLON.5 PO (07:32)
[2018-10-24] MEDS ORDERED: Florastor250 MG PO (07:32)
[2018-10-24] MEDS ORDERED: GABA300 PO (07:33)
[2018-10-24] MEDS ORDERED: GUAI600T33 PO (07:33)
[2018-10-24] MEDS ORDERED: POTCIT10 PO (07:33)
[2018-10-24] MEDS ORDERED: MIDO5 PO (07:34)
[2018-10-24 07:44] LABS: BASOPHILS ABSOLUTE AUTO 0.06 K/mm3 (0.00-0.23); BASOPHILS PERCENT AUTO 0 % (0-2); EOSINOPHILS ABSOLUTE AUTO 0.16 K/mm3 (0.00-0.68); EOSINOPHILS PERCENT AUTO 1 % (0-6); Hematocrit 43.8 % (37.0-53.0); Hemoglobin 13.4 g/dL (13.5-17.5); IMMATURE GRAN ABSOLUTE AUTO 0.06 K/mm3 (0.00-0.10); IMMATURE GRAN PERCENT AUTO 0 % (0-1); LYMPHOCYTES ABSOLUTE AUTO 0.47 K/mm3 (0.84-5.20); LYMPHOCYTES PERCENT AUTO 3 % (21-46); MONOCYTES ABSOLUTE AUTO 2.12 K/mm3 (0.16-1.47); MONOCYTES PERCENT AUTO 16 % (4-13); Mean Corpuscular HGB 23.9 pg (26.0-34.0); Mean Corpuscular HGB Conc 30.6 g/dL (31.5-36.5); Mean Corpuscular Volume 78 fL (80-100); Mean Platelet Volume 9.1 fL (9.1-12.4); NEUTROPHILS ABSOLUTE AUTO 10.84 K/mm3 (1.96-9.15); NEUTROPHILS PERCENT AUTO 79 % (41-73); Platelet Count 358 K/mm3 (150-400); RDW Coefficient Variation 17.4 % (11.7-14.2); RDW Standard Deviation 48.6 fL (35.1-46.3); Red Blood Cell Count 5.61 M/mm3 (4.30-5.90); White Blood Cell Count 13.71 K/mm3 (4.00-11.30)
[2018-10-24 08:05] LABS: Alanine Aminotransfer (ALT/SGP 27 U/L (12-78); Albumin, Blood 2.9 g/dL (3.4-5.0); Albumin/Globulin Ratio 0.6 (0.8-1.8); Alk Phos 86 U/L (50-136); Anion Gap 9 mmol/L (6-16); Aspartate Aminotrans (AST/SGOT 21 U/L (12-37); Bilirubin, Total 1.1 mg/dL (0.1-1.0); Blood Urea Nitrogen 12 mg/dL (8-24); Bun/Creatinine Ratio 14.9 (12.0-20.0); CO2, Blood 26 mmol/L (21-32); Calcium, Blood 8.9 mg/dL (8.5-10.1); Chloride, Blood 103 mmol/L (98-108); Creatinine, Blood 0.81 mg/dL (0.60-1.20); Globulin, Blood 5.1 g/dL (2.2-4.0); Glomerular Filtration Rate >60 (60-); Glucose, Blood 103 mg/dL (70-99); Potassium, Blood 4.2 mmol/L (3.5-5.5); Sodium, Blood 138 mmol/L (136-145)
[2018-10-24 09:47] LABS: Source, Urine Catheter
[2018-10-24 10:02] LABS: Bilirubin, Urine Neg (Neg); Blood, Urine 5+ (Neg); Glucose Qualitative, Urine Neg (Neg); Ketones, Urine Neg (Neg); Leukocyte Esterase, Urine 3+ (Neg); Nitrite, Urine Pos (Neg); Protein, Urine 3+ (Neg); Urobilinogen, Urine NORM (Normal)
[2018-10-24 10:13] LABS: Appearance, Urine Cloudy (Clear); Color, Urine Yellow (P-Yellow)
[2018-10-24 10:16] LABS: White Blood Cells, Urine TNTC /hpf (0-5)
[2018-10-24 10:17] LABS: Bacteria Many /hpf; Red Blood Cells, Urine TNTC /hpf (0-2); Squamous Epithelial Cells Mod /hpf (Few)
== END 2018-10-24 18:50 | disposition short-term general hospital (02) ==
LOC: ER 07:15
PROVIDERS: Emergency Medicine
DX: N20.1 Calculus of ureter (principal); G35 Multiple sclerosis; Z86.711 Personal history of pulmonary embolism; Z88.2 Allergy status to sulfonamides; Z88.5 Allergy status to narcotic agent; Z88.6 Allergy status to analgesic agent; Z79.899 Other long term (current) drug therapy
CPT/HCPCS: 36415; 71045; 74176; 80053; 81001; 83605; 85025; 87040; 87077; 87086; 87186; 93005; 93010; 96361; 96365; 99285-25; J0696; J2185; J7030

== ENCOUNTER 2018-11-08 16:11 | Inpatient (IN) | payer OTHER ==
[~2018-11-08] VITALS: Ht 198.1 cm; Wt 117.8 kg
[~2018-11-08 16:11] MED LIST changes: +ELIQUIS2.5 MG PO; +Florastor250 MG PO; +POTCIT10 PO
[2018-11-08 16:48] LABS: BASOPHILS ABSOLUTE AUTO 0.04 K/mm3 (0.00-0.23); BASOPHILS PERCENT AUTO 0 % (0-2); EOSINOPHILS ABSOLUTE AUTO 0.02 K/mm3 (0.00-0.68); EOSINOPHILS PERCENT AUTO 0 % (0-6); Hematocrit 41.6 % (37.0-53.0); Hemoglobin 12.5 g/dL (13.5-17.5); IMMATURE GRAN ABSOLUTE AUTO 0.11 K/mm3 (0.00-0.10); IMMATURE GRAN PERCENT AUTO 1 % (0-1); LYMPHOCYTES ABSOLUTE AUTO 0.58 K/mm3 (0.84-5.20); LYMPHOCYTES PERCENT AUTO 3 % (21-46); MONOCYTES ABSOLUTE AUTO 2.74 K/mm3 (0.16-1.47); MONOCYTES PERCENT AUTO 13 % (4-13); Mean Corpuscular HGB 24.3 pg (26.0-34.0); Mean Corpuscular Volume 81 fL (80-100); Mean Platelet Volume 9.4 fL (9.1-12.4); NEUTROPHILS ABSOLUTE AUTO 17.79 K/mm3 (1.96-9.15); NEUTROPHILS PERCENT AUTO 84 % (41-73); Platelet Count 354 K/mm3 (150-400); RDW Coefficient Variation 17.2 % (11.7-14.2); RDW Standard Deviation 50.4 fL (35.1-46.3); Red Blood Cell Count 5.14 M/mm3 (4.30-5.90); White Blood Cell Count 21.28 K/mm3 (4.00-11.30)
[2018-11-08 17:07] LABS: Alanine Aminotransfer (ALT/SGP 42 U/L (12-78); Albumin, Blood 2.8 g/dL (3.4-5.0); Albumin/Globulin Ratio 0.6 (0.8-1.8); Alk Phos 85 U/L (50-136); Anion Gap 2 mmol/L (6-16); Aspartate Aminotrans (AST/SGOT 24 U/L (12-37); Bilirubin, Total 0.4 mg/dL (0.1-1.0); Blood Urea Nitrogen 11 mg/dL (8-24); CO2, Blood 29 mmol/L (21-32); Calcium, Blood 8.8 mg/dL (8.5-10.1); Chloride, Blood 104 mmol/L (98-108); Creatinine, Blood 0.92 mg/dL (0.60-1.20); Globulin, Blood 4.8 g/dL (2.2-4.0); Glomerular Filtration Rate >60 (60-); Glucose, Blood 126 mg/dL (70-99); Potassium, Blood 3.8 mmol/L (3.5-5.5); Sodium, Blood 135 mmol/L (136-145); Total Protein, Blood 7.6 g/dL (6.4-8.2)
[2018-11-08 17:16] LABS: Source, Urine Clean Catch
[2018-11-08 17:22] LABS: Bilirubin, Urine Neg (Neg); Blood, Urine 5+ (Neg); Glucose Qualitative, Urine Neg (Neg); Ketones, Urine 1+ (Neg); Leukocyte Esterase, Urine 3+ (Neg); Nitrite, Urine Pos (Neg); Protein, Urine 3+ (Neg); Specific Gravity, Urine 1.015 (1.003-1.022); Urobilinogen, Urine NORM (Normal)
[2018-11-08 17:29] LABS: Appearance, Urine Cloudy (Clear); Color, Urine Amber (P-Yellow)
[2018-11-08 17:30] LABS: Bacteria Many /hpf; Mucus Light (0-Heavy); Red Blood Cells, Urine 50-100 /hpf (0-2); Squamous Epithelial Cells Few /hpf (Few); White Blood Cells, Urine 50-100 /hpf (0-5)
[2018-11-08] MEDS ORDERED: ACET325 PO (17:47)
[2018-11-08] MEDS ORDERED: POTA10T PO (17:47)
--- NOTE | 2018-11-09 04:37 | NUR ---
SHIFT SUMMARY PT ARRIVED FROM ER WITH TACHYCARDIA AND A FEVER. PROVIDER CALLED AND TX PER ORDERS. PT HAS A CLEARY CATH PLACED BY HIS DR YESTERDAY. PROVIDER NEEDS TO ASSESS FOR NEED OF NEW ONE TODAY. PT STATES HE IS DIFFICULT TO HAVE A CLEARY PLACED. PT HAD NO COMPLAINTS OR OTHER ISSUES NOTED. PT TEMP CAME DOWN DID PULSE RATE. PT CURRENTLY SLEEPING AND BREATHING EASY. CALL LIGHT IN REACH. VSS AT THIS TIME.
--- NOTE | 2018-11-09 09:35 | NUR ---
AWAKENS EASILY WITH VERBAL STIMULI APPEARS DROWSY AT TIMES. TACHYCARDIA NOTED. RR 18 EVEN AND UNLABORED.
[2018-11-09 12:30] LABS: BASOPHILS ABSOLUTE AUTO 0.06 K/mm3 (0.00-0.23); BASOPHILS PERCENT AUTO 0 % (0-2); EOSINOPHILS ABSOLUTE AUTO 0.12 K/mm3 (0.00-0.68); EOSINOPHILS PERCENT AUTO 1 % (0-6); Hematocrit 37.3 % (37.0-53.0); Hemoglobin 10.8 g/dL (13.5-17.5); IMMATURE GRAN ABSOLUTE AUTO 0.14 K/mm3 (0.00-0.10); IMMATURE GRAN PERCENT AUTO 1 % (0-1); LYMPHOCYTES PERCENT AUTO 4 % (21-46); MONOCYTES ABSOLUTE AUTO 3.37 K/mm3 (0.16-1.47); MONOCYTES PERCENT AUTO 16 % (4-13); Mean Corpuscular HGB 23.9 pg (26.0-34.0); Mean Corpuscular Volume 83 fL (80-100); Mean Platelet Volume 9.7 fL (9.1-12.4); NEUTROPHILS ABSOLUTE AUTO 16.66 K/mm3 (1.96-9.15); NEUTROPHILS PERCENT AUTO 78 % (41-73); Platelet Count 249 K/mm3 (150-400); RDW Coefficient Variation 17.6 % (11.7-14.2); Red Blood Cell Count 4.51 M/mm3 (4.30-5.90); White Blood Cell Count 21.25 K/mm3 (4.00-11.30)
[2018-11-09 12:50] LABS: Alanine Aminotransfer (ALT/SGP 117 U/L (12-78); Albumin, Blood 2.1 g/dL (3.4-5.0); Albumin/Globulin Ratio 0.5 (0.8-1.8); Alk Phos 125 U/L (50-136); Anion Gap 6 mmol/L (6-16); Aspartate Aminotrans (AST/SGOT 120 U/L (12-37); Bilirubin, Total 1.8 mg/dL (0.1-1.0); Blood Urea Nitrogen 7 mg/dL (8-24); Bun/Creatinine Ratio 9.9 (12.0-20.0); CO2, Blood 25 mmol/L (21-32); Calcium, Blood 7.6 mg/dL (8.5-10.1); Chloride, Blood 112 mmol/L (98-108); Globulin, Blood 4.1 g/dL (2.2-4.0); Glomerular Filtration Rate >60 (60-); Glucose, Blood 75 mg/dL (70-99); Sodium, Blood 143 mmol/L (136-145); Total Protein, Blood 6.2 g/dL (6.4-8.2)
--- NOTE | 2018-11-09 18:41 | NUR ---
SHIFT SUMMARY BEDREST. GROSS MOVEMENT TO UPPER EXT. FEEDER. Q2 TURNS REFUSING AT TIMES. REFUSED ORAL CARE. COLOSTOMY; CLEARY DRAINING DARK URINE. OX3. DENIES ANY PAIN. +BLOOD CULTURES; CURRENTLY LIVES AT [facility].
--- NOTE | 2018-11-10 07:34 | NUR ---
11/10/18 0550 REPOSITIONED Q 2 HOURS BUT REFUSED TO TURN FULLY ON EITHER SIDE. VERY PARTICULAR ABOUT HOW HE WANTS TO LAY. FEET WITH BOOTS ON ALL SHIFT TO PREVENT FOOT DROP. VITALS STABLE. ILEOSTOMY AND CLEARY EMPIED PRN. PT CAN BE RUDE AND IMPATIENT TOWARDS STAFF. REMINDED HIM TO BE RESPECTFUL AND COURTEOUS.
[2018-11-10 09:59] LABS: Source, Urine Catheter
[2018-11-10 10:02] LABS: Appearance, Urine Turbid (Clear); Bilirubin, Urine Neg (Neg); Blood, Urine 5+ (Neg); Color, Urine Yellow (P-Yellow); Glucose Qualitative, Urine Neg (Neg); Ketones, Urine 1+ (Neg); Leukocyte Esterase, Urine 3+ (Neg); Nitrite, Urine Neg (Neg); Protein, Urine 3+ (Neg); Specific Gravity, Urine 1.015 (1.003-1.022); Urobilinogen, Urine NORM (Normal)
[2018-11-10 10:14] LABS: Bacteria Few /hpf; Red Blood Cells, Urine TNTC /hpf (0-2); Squamous Epithelial Cells Rare /hpf (Few); White Blood Cells, Urine TNTC /hpf (0-5)
--- NOTE | 2018-11-10 17:51 | NUR ---
SHIFT SUMMARY OX3; PARAPLEGIC HX OF MS. UPPER EXT GROSS MOVEMENT ONLY. INTERMITTENTLY SLEEPING THROUGHOUT DAY. C/O NEUROPATHY TO EXTREMETIES. CURRENTLY LIVES AT [facility]. FEEDER. DECREASED PO INTAKE. REFUSES Q2 TURNS AT TIMES. CLEARY. ILEOSTOMY.
--- NOTE | 2018-11-11 04:27 | NUR ---
SHIFT SUMMARY PT HAD NO ISSUES OR COMPLAINTS. PT WAS TURNED ORDERED. PT DID DECLINE SOME REPOSITIONING. PT HAS SLEPT WELL T/O SHIFT. PT CURRENTLY SLEEPING IN NO DISTRESS. CALL LIGHT IN REACH.
[2018-11-11 06:22] LABS: Hematocrit 34.7 % (37.0-53.0); Hemoglobin 10.1 g/dL (13.5-17.5); Mean Corpuscular HGB 23.7 pg (26.0-34.0); Mean Corpuscular HGB Conc 29.1 g/dL (31.5-36.5); Mean Corpuscular Volume 82 fL (80-100); Mean Platelet Volume 9.4 fL (9.1-12.4); Platelet Count 276 K/mm3 (150-400); RDW Coefficient Variation 17.5 % (11.7-14.2); RDW Standard Deviation 51.6 fL (35.1-46.3); Red Blood Cell Count 4.26 M/mm3 (4.30-5.90); White Blood Cell Count 7.71 K/mm3 (4.00-11.30)
[2018-11-11] MEDS ORDERED: BISA5EC PO (13:56)
[2018-11-11] MEDS ORDERED: MIRALAX17 GM PO (13:57)
[2018-11-11] MEDS ORDERED: LACT PO (13:58)
[2018-11-11] MEDS ORDERED: Tazicef1 G1 IV (13:59)
--- NOTE | 2018-11-11 16:20 | NUR ---
DISCHARGE AT 1606 PATIENT DISCHARGED VIA MEDIC STRETCHER TO [facility]. FACE SHEET GIVEN TO MEDIC. REPORT CALLED TO [facility] NURSE. EDUCATION ADMINISTRATIVE ASSISTANT CRISTEL TOOK CARE OF FAXING ORDERS/MEDS PACKET TO FACILITY. IVS X2 REMOVED. POWERGLIDE IV SITE IN LEFT UPPER ARM PLACED TODAY BY ASSOCIATE PROFESSOR OF BIBLICAL STUDIES, FLUSHES WELL, TEGADERM SECURE. RUQ OSTOMY AND CLEARY HAVE GOOD OUTPUT. PATIENT SLEPT OFF AND ON TODAY BUT WAS EASILY AROUSABLE AND ALERT WITH CONVERSATION.
== END 2018-11-11 16:07 | DRG 698 ==
LOC: ER 16:11 → MEDS 20:57 → ENPENDDIS 11-11 11:16 → MEDS 11-11 16:07
PROVIDERS: Emergency Medicine; Internal Medicine; Physician Assistant; ADMIT Internal Medicine
DX: T83.511A Infection and inflammatory reaction due to indwelling urethral catheter, initial encounter (principal); A41.9 Sepsis, unspecified organism; G93.40 Encephalopathy, unspecified; Z74.01 Bed confinement status; Z86.711 Personal history of pulmonary embolism; Z93.2 Ileostomy status; Z66 Do not resuscitate; N31.9 Neuromuscular dysfunction of bladder, unspecified
CPT/HCPCS: 36415; 51702; 71045; 74177; 80053; 81001; 83605; 85025; 85027; 87040; 87077; 87086; 87186; 93005; 93010; 96361; 96365-59; 99285-25; A9270; C1751; J0696; J0713; J3010; J7030; J7120; Q9967

== ENCOUNTER 2018-12-07 00:52 | Emergency (ER) | payer OTHER ==
[~2018-12-07] VITALS: Ht 198.1 cm; Wt 113.4 kg
[~2018-12-07 00:52] MED LIST changes: +BISA5EC PO; +LACT PO; +MIRALAX17 GM PO; +POTA10T PO
[2018-12-07 02:03] LABS: BASOPHILS ABSOLUTE AUTO 0.03 K/mm3 (0.00-0.23); BASOPHILS PERCENT AUTO 0 % (0-2); EOSINOPHILS ABSOLUTE AUTO 0.02 K/mm3 (0.00-0.68); EOSINOPHILS PERCENT AUTO 0 % (0-6); Hematocrit 42.3 % (37.0-53.0); Hemoglobin 12.5 g/dL (13.5-17.5); IMMATURE GRAN ABSOLUTE AUTO 0.04 K/mm3 (0.00-0.10); IMMATURE GRAN PERCENT AUTO 0 % (0-1); LYMPHOCYTES ABSOLUTE AUTO 0.56 K/mm3 (0.84-5.20); LYMPHOCYTES PERCENT AUTO 5 % (21-46); MONOCYTES ABSOLUTE AUTO 0.66 K/mm3 (0.16-1.47); MONOCYTES PERCENT AUTO 6 % (4-13); Mean Corpuscular HGB 23.9 pg (26.0-34.0); Mean Corpuscular HGB Conc 29.6 g/dL (31.5-36.5); Mean Corpuscular Volume 81 fL (80-100); Mean Platelet Volume 9.3 fL (9.1-12.4); NEUTROPHILS ABSOLUTE AUTO 10.64 K/mm3 (1.96-9.15); NEUTROPHILS PERCENT AUTO 89 % (41-73); Platelet Count 263 K/mm3 (150-400); RDW Coefficient Variation 16.6 % (11.7-14.2); RDW Standard Deviation 48.8 fL (35.1-46.3); Red Blood Cell Count 5.22 M/mm3 (4.30-5.90); White Blood Cell Count 11.95 K/mm3 (4.00-11.30)
[2018-12-07 02:25] LABS: Alanine Aminotransfer (ALT/SGP 31 U/L (12-78); Albumin, Blood 3.1 g/dL (3.4-5.0); Albumin/Globulin Ratio 0.6 (0.8-1.8); Alk Phos 84 U/L (50-136); Anion Gap 8 mmol/L (6-16); Aspartate Aminotrans (AST/SGOT 25 U/L (12-37); Bilirubin, Total 0.5 mg/dL (0.1-1.0); Blood Urea Nitrogen 17 mg/dL (8-24); Bun/Creatinine Ratio 19.9 (12.0-20.0); CO2, Blood 30 mmol/L (21-32); Calcium, Blood 9.1 mg/dL (8.5-10.1); Chloride, Blood 101 mmol/L (98-108); Creatinine, Blood 0.85 mg/dL (0.60-1.20); Glomerular Filtration Rate >60 (60-); Glucose, Blood 124 mg/dL (70-99); Potassium, Blood 3.9 mmol/L (3.5-5.5); Sodium, Blood 139 mmol/L (136-145); Total Protein, Blood 8.1 g/dL (6.4-8.2); Troponin I <0.015 ng/mL (0.000-0.040)
== END 2018-12-07 02:57 | disposition home or self-care (01) ==
LOC: ER 00:52
PROVIDERS: Emergency Medicine
DX: R10.10 Upper abdominal pain, unspecified (principal); Z88.6 Allergy status to analgesic agent; Z88.2 Allergy status to sulfonamides; Z88.8 Allergy status to other drugs, medicaments and biological substances; Z88.5 Allergy status to narcotic agent; Z91.041 Radiographic dye allergy status; Z79.899 Other long term (current) drug therapy
CPT/HCPCS: 36415; 80053; 83690; 84484; 85025; 93005; 93010; 99284-25

== ENCOUNTER → 2019-01-05 | Outpatient (CLI) | payer OTHER ==
[~2019-01-05] MED LIST changes: +MIRALAX17 GM; +ONDA4ODT SL
[2019-01-05 22:22] LABS: Source, Urine Catheter
[2019-01-05 22:25] LABS: Appearance, Urine Turbid (Clear); Bilirubin, Urine Neg (Neg); Blood, Urine 5+ (Neg); Color, Urine Brown (P-Yellow); Glucose Qualitative, Urine Neg (Neg); Ketones, Urine 1+ (Neg); Leukocyte Esterase, Urine 3+ (Neg); Nitrite, Urine Pos (Neg); Protein, Urine 3+ (Neg); Specific Gravity, Urine 1.015 (1.003-1.022); Urobilinogen, Urine NORM (Normal)
[2019-01-05 22:33] LABS: Bacteria Many /hpf; Red Blood Cells, Urine TNTC /hpf (0-2); Squamous Epithelial Cells Not Seen /hpf (Few); Triple Phosphate Crystals Few /hpf; White Blood Cells, Urine 0-2 /hpf (0-5)
== END | disposition home or self-care (01) ==
LOC: EDSTATUS 11:09 → LAB RH 22:20 → EDBD 22:20
PROVIDERS: Internal Medicine
DX: N39.0 Urinary tract infection, site not specified (principal)
CPT/HCPCS: 81001; 87077; 87086; 87186

== ENCOUNTER 2019-01-18 13:25 | Inpatient (IN) | payer OTHER ==
[~2019-01-18] VITALS: Ht 198.1 cm; Wt 114.2 kg
[~2019-01-18 13:25] MED LIST changes: -MIRALAX17 GM; -ONDA4ODT SL
[2019-01-18] MEDS ORDERED: MIRALAX17 GM (14:17)
[2019-01-18 14:18] LABS: BASOPHILS ABSOLUTE AUTO 0.03 K/mm3 (0.00-0.23); BASOPHILS PERCENT AUTO 0 % (0-2); EOSINOPHILS ABSOLUTE AUTO 0.24 K/mm3 (0.00-0.68); EOSINOPHILS PERCENT AUTO 2 % (0-6); Hemoglobin 13.2 g/dL (13.5-17.5); IMMATURE GRAN ABSOLUTE AUTO 0.05 K/mm3 (0.00-0.10); IMMATURE GRAN PERCENT AUTO 0 % (0-1); LYMPHOCYTES ABSOLUTE AUTO 0.67 K/mm3 (0.84-5.20); LYMPHOCYTES PERCENT AUTO 5 % (21-46); MONOCYTES ABSOLUTE AUTO 1.15 K/mm3 (0.16-1.47); MONOCYTES PERCENT AUTO 8 % (4-13); Mean Corpuscular HGB 23.8 pg (26.0-34.0); Mean Corpuscular HGB Conc 29.3 g/dL (31.5-36.5); Mean Corpuscular Volume 81 fL (80-100); Mean Platelet Volume 9.1 fL (9.1-12.4); NEUTROPHILS ABSOLUTE AUTO 11.73 K/mm3 (1.96-9.15); NEUTROPHILS PERCENT AUTO 85 % (41-73); Platelet Count 339 K/mm3 (150-400); RDW Coefficient Variation 16.6 % (11.7-14.2); RDW Standard Deviation 48.8 fL (35.1-46.3); Red Blood Cell Count 5.55 M/mm3 (4.30-5.90); White Blood Cell Count 13.87 K/mm3 (4.00-11.30)
[2019-01-18 14:34] LABS: International Normalized Ratio 1.03; Prothrombin Time Results 10.9 Sec (9.7-11.5)
[2019-01-18 14:37] LABS: Alanine Aminotransfer (ALT/SGP 67 U/L (12-78); Albumin, Blood 3.2 g/dL (3.4-5.0); Albumin/Globulin Ratio 0.6 (0.8-1.8); Alk Phos 109 U/L (50-136); Anion Gap 7 mmol/L (6-16); Aspartate Aminotrans (AST/SGOT 45 U/L (12-37); Bilirubin, Total 0.4 mg/dL (0.1-1.0); Blood Urea Nitrogen 13 mg/dL (8-24); Bun/Creatinine Ratio 16.2 (12.0-20.0); CO2, Blood 30 mmol/L (21-32); Calcium, Blood 9.3 mg/dL (8.5-10.1); Chloride, Blood 102 mmol/L (98-108); Globulin, Blood 5.2 g/dL (2.2-4.0); Glomerular Filtration Rate >60 (60-); Glucose, Blood 117 mg/dL (70-99); Sodium, Blood 139 mmol/L (136-145); Total Protein, Blood 8.4 g/dL (6.4-8.2)
[2019-01-18 18:13] LABS: Source, Urine Catheter
[2019-01-18 18:19] LABS: BASOPHILS ABSOLUTE AUTO 0.02 K/mm3 (0.00-0.23); BASOPHILS PERCENT AUTO 0 % (0-2); EOSINOPHILS ABSOLUTE AUTO 0.17 K/mm3 (0.00-0.68); EOSINOPHILS PERCENT AUTO 2 % (0-6); Hematocrit 44.1 % (37.0-53.0); Hemoglobin 12.8 g/dL (13.5-17.5); IMMATURE GRAN ABSOLUTE AUTO 0.03 K/mm3 (0.00-0.10); IMMATURE GRAN PERCENT AUTO 0 % (0-1); LYMPHOCYTES ABSOLUTE AUTO 0.41 K/mm3 (0.84-5.20); LYMPHOCYTES PERCENT AUTO 4 % (21-46); MONOCYTES ABSOLUTE AUTO 1.05 K/mm3 (0.16-1.47); MONOCYTES PERCENT AUTO 9 % (4-13); Mean Corpuscular HGB 23.7 pg (26.0-34.0); Mean Corpuscular Volume 82 fL (80-100); Mean Platelet Volume 9.2 fL (9.1-12.4); NEUTROPHILS ABSOLUTE AUTO 9.45 K/mm3 (1.96-9.15); NEUTROPHILS PERCENT AUTO 85 % (41-73); Platelet Count 300 K/mm3 (150-400); RDW Coefficient Variation 16.5 % (11.7-14.2); Red Blood Cell Count 5.41 M/mm3 (4.30-5.90); White Blood Cell Count 11.13 K/mm3 (4.00-11.30)
[2019-01-18 18:22] LABS: Bilirubin, Urine Neg (Neg); Blood, Urine 5+ (Neg); Glucose Qualitative, Urine Neg (Neg); Ketones, Urine Neg (Neg); Leukocyte Esterase, Urine 2+ (Neg); Nitrite, Urine Neg (Neg); Protein, Urine 3+ (Neg); Specific Gravity, Urine 1.015 (1.003-1.022); Urobilinogen, Urine NORM (Normal)
[2019-01-18 18:28] LABS: Appearance, Urine Cloudy (Clear); Color, Urine Yellow (P-Yellow)
[2019-01-18 18:34] LABS: International Normalized Ratio 1.05; Prothrombin Time Results 11.1 Sec (9.7-11.5)
[2019-01-18 18:37] LABS: Red Blood Cells, Urine TNTC /hpf (0-2); White Blood Cells, Urine TNTC /hpf (0-5)
[2019-01-18 18:39] LABS: Squamous Epithelial Cells Not Seen /hpf (Few)
[2019-01-18 18:40] LABS: Bacteria Many /hpf; Uric Acid Crystals Many /hpf
--- NOTE | 2019-01-18 18:59 | NUR ---
SUMMARY PT ARRIVED TO UNIT FROM ED THIS AFTERNOON. ALERT AND ORIENTED. MS. PT ABLE TO SLIGHTLY MOVE BLE, HAS SENSATION. PROTECTIVE BOOTIES TO BLE. GROSS MOVEMENT TO BUE. HAS SLIGHT ABRASION TO BUTTOCKS AND BOTH GREAT TOES. SCAB TO R NESBITT. STARTED IV FLUIDS PER SEPSIS PROTOCOL. PT HAD CRITICAL HIGH LACTIC ACID OF 2.8 ON SECOND LACTIC ACID; NOTIFIED DR CHUNG. NO NEW ORDERS. PT REFUSED XARELTO; NOTIFIED DR CHUNG, ORDERS OBTAINED. SOFT TOUCH CALL LIGHT IN REACH.
[2019-01-19 04:18] LABS: BASOPHILS ABSOLUTE AUTO 0.03 K/mm3 (0.00-0.23); BASOPHILS PERCENT AUTO 0 % (0-2); EOSINOPHILS ABSOLUTE AUTO 0.26 K/mm3 (0.00-0.68); EOSINOPHILS PERCENT AUTO 4 % (0-6); Hematocrit 37.2 % (37.0-53.0); Hemoglobin 10.8 g/dL (13.5-17.5); IMMATURE GRAN ABSOLUTE AUTO 0.01 K/mm3 (0.00-0.10); IMMATURE GRAN PERCENT AUTO 0 % (0-1); LYMPHOCYTES ABSOLUTE AUTO 0.57 K/mm3 (0.84-5.20); LYMPHOCYTES PERCENT AUTO 9 % (21-46); MONOCYTES ABSOLUTE AUTO 0.97 K/mm3 (0.16-1.47); MONOCYTES PERCENT AUTO 14 % (4-13); Mean Corpuscular HGB 23.5 pg (26.0-34.0); Mean Corpuscular Volume 81 fL (80-100); Mean Platelet Volume 9.3 fL (9.1-12.4); NEUTROPHILS PERCENT AUTO 73 % (41-73); Platelet Count 250 K/mm3 (150-400); RDW Coefficient Variation 16.7 % (11.7-14.2); RDW Standard Deviation 49.5 fL (35.1-46.3); Red Blood Cell Count 4.59 M/mm3 (4.30-5.90); White Blood Cell Count 6.74 K/mm3 (4.00-11.30)
[2019-01-19 04:51] LABS: Alanine Aminotransfer (ALT/SGP 50 U/L (12-78); Albumin, Blood 2.4 g/dL (3.4-5.0); Albumin/Globulin Ratio 0.6 (0.8-1.8); Alk Phos 87 U/L (50-136); Anion Gap 5 mmol/L (6-16); Aspartate Aminotrans (AST/SGOT 40 U/L (12-37); Bilirubin, Total 0.5 mg/dL (0.1-1.0); Blood Urea Nitrogen 10 mg/dL (8-24); Bun/Creatinine Ratio 10.9 (12.0-20.0); CO2, Blood 28 mmol/L (21-32); Calcium, Blood 7.9 mg/dL (8.5-10.1); Chloride, Blood 109 mmol/L (98-108); Creatinine, Blood 0.91 mg/dL (0.60-1.20); Glomerular Filtration Rate >60 (60-); Glucose, Blood 89 mg/dL (70-99); Potassium, Blood 4.2 mmol/L (3.5-5.5); Sodium, Blood 142 mmol/L (136-145)
[2019-01-19 04:53] LABS: Total Protein, Blood 6.4 g/dL (6.4-8.2)
--- NOTE | 2019-01-19 06:39 | NUR ---
SHIFT SUMMARY PT HAS REMAINED AOX3 THROUGHOUT SHIFT. NOT VERY COOPERATIVE WITH ANSWERING ORIENTATION QUESTIONS, BUT WHEN HE DOES, HE ANSWERS APPROPRIATELY. VSS. HAS BEEN MOSTLY COOPERATIVE WITH CARE. PT IS BEDBOUND AT BASELINE DUE TO ADVANCED MS AND HAS GROSS MOVEMENT TO ALL EXTREMITIES, MUCH MORE WEAK BLEs. REFUSING TURNING EARLY ON IN SHIFT, DESPITE EDUCATION ON SKIN INTEGRITY AND PRESSURE ULCER PREVENTION. PT STARTED TO ALLOW TURNING LATER IN SHIFT. POWERGLIDE STARTED TO LUE LAST EVENING WITH GOOD BLOOD RETURN AND ABILITY TO DRAW. IV FLUIDS CONTINUE TO INFUSE @ 150 ML/HR. CLEARY PATENT AND DRAINING TO GRAVITY. PT DENIES PAIN THIS AM. NO OTHER CHANGES NOTED FROM INITIAL ASSESSMENT. WILL CONTINUE TO MONITOR AND REPORT TO ONCOMING SHIFT RN. BED IN LOW POSITION, CALL LIGHT IN REACH.
--- NOTE | 2019-01-19 17:17 | NUR ---
SHIFT SUMMARY PT ALERT AND ORIENTED. VS STABLE. O2 SATS REMAIN ABOVE 90% ON RA. HR SINUS. BP STABLE. PT DENIES ANY PAIN. CLEARY CATHETER STARTED LEAKING THIS SHIFT. CATHETER FLUSHED, BUT STILL LEAKING. CATHETER CHANGED FROM 16F TO 18F. CATHETER IS NOW DRAINING CLEAR YELLOW URINE AND NO LONGER LEAKING. OSTOMY IN PLACE WITH LIQUID BROWN STOOL. PT REFUSING REPOSITIONINGS AND REQUESTS TO ONLY BE FLOATED WITH PILLOWS ON EACH SIDE. WILL CONTINUE TO MONITOR CLOSELY AND REPORT TO ILYA CLANCY. SOFT TOUCH CALL LIGHT IN PLACE.
[2019-01-20 04:54] LABS: BASOPHILS ABSOLUTE AUTO 0.02 K/mm3 (0.00-0.23); BASOPHILS PERCENT AUTO 1 % (0-2); EOSINOPHILS ABSOLUTE AUTO 0.42 K/mm3 (0.00-0.68); EOSINOPHILS PERCENT AUTO 11 % (0-6); Hemoglobin 9.9 g/dL (13.5-17.5); IMMATURE GRAN PERCENT AUTO 0 % (0-1); LYMPHOCYTES PERCENT AUTO 21 % (21-46); MONOCYTES PERCENT AUTO 19 % (4-13); Mean Corpuscular HGB 23.4 pg (26.0-34.0); Mean Corpuscular HGB Conc 29.1 g/dL (31.5-36.5); Mean Corpuscular Volume 80 fL (80-100); Mean Platelet Volume 9.1 fL (9.1-12.4); NEUTROPHILS ABSOLUTE AUTO 1.84 K/mm3 (1.96-9.15); NEUTROPHILS PERCENT AUTO 49 % (41-73); Platelet Count 215 K/mm3 (150-400); RDW Coefficient Variation 16.6 % (11.7-14.2); RDW Standard Deviation 48.3 fL (35.1-46.3); Red Blood Cell Count 4.23 M/mm3 (4.30-5.90); White Blood Cell Count 3.78 K/mm3 (4.00-11.30)
[2019-01-20 05:12] LABS: Anion Gap 4 mmol/L (6-16); Blood Urea Nitrogen 7 mg/dL (8-24); Bun/Creatinine Ratio 8.1 (12.0-20.0); CO2, Blood 28 mmol/L (21-32); Chloride, Blood 110 mmol/L (98-108); Creatinine, Blood 0.87 mg/dL (0.60-1.20); Glomerular Filtration Rate >60 (60-); Glucose, Blood 77 mg/dL (70-99); Potassium, Blood 3.7 mmol/L (3.5-5.5); Sodium, Blood 142 mmol/L (136-145); Vancomycin, Trough 12.2 ug/mL (5.0-10.0)
--- NOTE | 2019-01-20 07:19 | NUR ---
a+o, fun to work with, cooperative with care, call light in reach as well as a push pad r/ms, man of few words but makes needs/opinions known, still in isolation for esbl in the urine, bsr shared with day staff and pt, reviewed fluids, acevedo and ostomy, as well as history of care provided during noc shift
--- NOTE | 2019-01-20 18:01 | NUR ---
SHIFT SUMMARY PT ALERT AND ORIENTED. VS STABLE. O2 SATS REMAIN ABOVE 90% ON RA. PT DENIES ANY PAIN. OSTOMY WITH DARK GREEN LIQUID OUTPUT. CLEARY DRAINING CLEAR YELLOW URINE. PT REPOSITIONED Q2H. PT CHANGED TO MEDICAL STATUS THIS AFTERNOON. WILL CONTINUE TO MONITOR AND REPORT TO ONCOMING RN. SOFT TOUCH CALL LIGHT IN REACH.
--- NOTE | 2019-01-20 21:58 | NUR ---
REPORT CALLED TO JULIETH OSORIO ON MEDICAL FLOOR.
--- NOTE | 2019-01-20 23:24 | NUR ---
TRANSFER TO MEDICAL FLOOR. PT ARRIVED IN ROOM 303 AT 2220. ALERT AND RESPONSIVE. ABLE OT COMMUNICATE NEEDS AND ANSWER QUESTIONS. DENIES PAIN. F/C PATENT AND DRAINING CLEAR STRAW COLORED URINE. COLOSTOMY BAG SEALED AND PRODUCING BROWN TYPE 6 STOOL. POWERPORT IN LEFT ARM PATENT. IV INFUSING. CALL BUTTON IN REACH, BED LOW.
[2019-01-21 05:06] LABS: BASOPHILS ABSOLUTE AUTO 0.02 K/mm3 (0.00-0.23); BASOPHILS PERCENT AUTO 0 % (0-2); EOSINOPHILS ABSOLUTE AUTO 0.56 K/mm3 (0.00-0.68); EOSINOPHILS PERCENT AUTO 11 % (0-6); Hematocrit 35.7 % (37.0-53.0); Hemoglobin 10.6 g/dL (13.5-17.5); IMMATURE GRAN ABSOLUTE AUTO 0.01 K/mm3 (0.00-0.10); IMMATURE GRAN PERCENT AUTO 0 % (0-1); LYMPHOCYTES ABSOLUTE AUTO 0.96 K/mm3 (0.84-5.20); LYMPHOCYTES PERCENT AUTO 19 % (21-46); MONOCYTES ABSOLUTE AUTO 0.57 K/mm3 (0.16-1.47); MONOCYTES PERCENT AUTO 11 % (4-13); Mean Corpuscular HGB Conc 29.7 g/dL (31.5-36.5); Mean Corpuscular Volume 81 fL (80-100); Mean Platelet Volume 9.4 fL (9.1-12.4); NEUTROPHILS ABSOLUTE AUTO 2.94 K/mm3 (1.96-9.15); NEUTROPHILS PERCENT AUTO 58 % (41-73); Platelet Count 263 K/mm3 (150-400); RDW Coefficient Variation 16.5 % (11.7-14.2); RDW Standard Deviation 48.9 fL (35.1-46.3); Red Blood Cell Count 4.41 M/mm3 (4.30-5.90); White Blood Cell Count 5.06 K/mm3 (4.00-11.30)
--- NOTE | 2019-01-21 05:51 | NUR ---
SHIFT SUMMARY: A/OX4. FLAT AFFECT. MAKES NEEDS KNOWN. SLOW TO RESPOND AND CAN BE SARCASTIC IN HIS RESPONSES. VSS. AFEB. 02 SATS 92% ON RA. DENIES PAIN. REQUIRES CONVINCING TO COMPLETE Q2HR TURNS. SLEPT INTERMITTENLTY. BED LOW, CALL BUTTON CLIPPED ON CHEST WITHIN HAND REACH. PT DEMONSTRATES ABILITY TO UTILIZE CALL BUTTON.
--- NOTE | 2019-01-21 11:56 | NUR ---
Pt resting in bed upon arrival. Pt A&O and denies pain at this time. Pt denies anxiety and nausea. Pt is not very receptive to visit and focuses his attention on the television throughout the visit. Pt expresses only concern is if his home medications will remain the same. Pt reports in the past hositalists D/C some of his medications without explanation. Pt reports plan is to discharge home today. No other concerns at this time. Spoke with Dr Conrad and relayed Pt's concerns. Plan is for Pt to continue all his home medications with the addition of Probiotic and Augementin. Relayed plan to Pt. Pt is agreeable with plan. Palliative Care will remain available.
--- NOTE | 2019-01-21 14:29 | NUR ---
PATIENT D/C'D BACK TO [facility] VIA [facility]. PACKET SENT WITH TRANSPORT. REPORT CALLED TO CLARITZA AT [facility]. PATIENT DENIES ANY QUESTIONS OR CONCERNS. HARD SCRIPT FOR CLONAZEPAM PLACED IN PACKET.
[2019-01-21] MEDS ORDERED: GUAI600T33 PO (16:34)
[2019-01-21] MEDS ORDERED: Augmentin 875-1 EACH PO (16:35)
[2019-01-21] MEDS ORDERED: ONDA4ODT SL (16:35)
== END 2019-01-21 14:35 | disposition home or self-care (01) | DRG 698 ==
LOC: ER 13:25 → PCU 15:44 → MEDS 01-20 22:20 → EDBD 01-21 14:35
PROVIDERS: Emergency Medicine; ADMIT Family Medicine
DX: T83.511A Infection and inflammatory reaction due to indwelling urethral catheter, initial encounter (principal); A41.9 Sepsis, unspecified organism; J18.9 Pneumonia, unspecified organism; F33.9 Major depressive disorder, recurrent, unspecified; G35 Multiple sclerosis; Z86.711 Personal history of pulmonary embolism; Z87.891 Personal history of nicotine dependence; Z74.01 Bed confinement status; Z93.2 Ileostomy status; Z86.718 Personal history of other venous thrombosis and embolism; F03.90 Unspecified dementia, unspecified severity, without behavioral disturbance, psychotic disturbance, mood disturbance, and anxiety; Z66 Do not resuscitate; E66.9 Obesity, unspecified; Z68.28 Body mass index [BMI] 28.0-28.9, adult
CPT/HCPCS: 36415; 51702; 71045; 80048; 80053; 80202; 81001; 83605; 84145; 85025; 85610; 85730; 87040; 87086; 93005; 93010; 99284-25; A9270; C1751; J1650; J2543; J3370; J7030; J7050; J7120

== ENCOUNTER → 2019-01-31 | Outpatient (CLI) | payer OTHER ==
[~2019-01-31] MED LIST changes: +MIRALAX17 GM; +ONDA4ODT SL
[2019-01-31 15:21] LABS: Source, Urine Catheter
[2019-01-31 16:24] LABS: Appearance, Urine Clear (Clear); Bilirubin, Urine Neg (Neg); Blood, Urine 3+ (Neg); Color, Urine Yellow (P-Yellow); Glucose Qualitative, Urine Neg (Neg); Ketones, Urine Neg (Neg); Leukocyte Esterase, Urine 3+ (Neg); Nitrite, Urine Neg (Neg); Protein, Urine 2+ (Neg); Urobilinogen, Urine NORM (Normal)
[2019-01-31 16:38] LABS: Squamous Epithelial Cells Not Seen /hpf (Few)
[2019-01-31 16:39] LABS: Bacteria Mod /hpf
== END | disposition home or self-care (01) ==
LOC: EDBD 14:15 → LAB SHORT 14:15 → OLS 14:15
PROVIDERS: Internal Medicine
DX: N39.0 Urinary tract infection, site not specified (principal)
CPT/HCPCS: 81001; 87077; 87086; 87186

== ENCOUNTER → 2019-02-15 | Outpatient (CLI) | payer OTHER ==
[2019-02-15 18:50] LABS: BASOPHILS ABSOLUTE AUTO 0.06 K/mm3 (0.00-0.23); BASOPHILS PERCENT AUTO 1 % (0-2); EOSINOPHILS ABSOLUTE AUTO 0.66 K/mm3 (0.00-0.68); EOSINOPHILS PERCENT AUTO 6 % (0-6); Hematocrit 41.5 % (37.0-53.0); IMMATURE GRAN ABSOLUTE AUTO 0.03 K/mm3 (0.00-0.10); IMMATURE GRAN PERCENT AUTO 0 % (0-1); LYMPHOCYTES PERCENT AUTO 13 % (21-46); MONOCYTES ABSOLUTE AUTO 1.31 K/mm3 (0.16-1.47); MONOCYTES PERCENT AUTO 13 % (4-13); Mean Corpuscular HGB Conc 28.9 g/dL (31.5-36.5); Mean Corpuscular Volume 80 fL (80-100); Mean Platelet Volume 9.6 fL (9.1-12.4); NEUTROPHILS ABSOLUTE AUTO 6.99 K/mm3 (1.96-9.15); NEUTROPHILS PERCENT AUTO 67 % (41-73); Platelet Count 344 K/mm3 (150-400); RDW Coefficient Variation 16.4 % (11.7-14.2); RDW Standard Deviation 47.7 fL (35.1-46.3); Red Blood Cell Count 5.21 M/mm3 (4.30-5.90); White Blood Cell Count 10.45 K/mm3 (4.00-11.30)
[2019-02-15 19:11] LABS: Alanine Aminotransfer (ALT/SGP 26 U/L (12-78); Albumin, Blood 2.9 g/dL (3.4-5.0); Albumin/Globulin Ratio 0.7 (0.8-1.8); Alk Phos 77 U/L (50-136); Anion Gap 6 mmol/L (6-16); Aspartate Aminotrans (AST/SGOT 24 U/L (12-37); Bilirubin, Total 0.3 mg/dL (0.1-1.0); Blood Urea Nitrogen 22 mg/dL (8-24); Bun/Creatinine Ratio 29.3 (12.0-20.0); CO2, Blood 26 mmol/L (21-32); Calcium, Blood 8.4 mg/dL (8.5-10.1); Chloride, Blood 103 mmol/L (98-108); Creatinine, Blood 0.75 mg/dL (0.60-1.20); Glomerular Filtration Rate >60 (60-); Glucose, Blood 80 mg/dL (70-99); Potassium, Blood 4.7 mmol/L (3.5-5.5); Sodium, Blood 135 mmol/L (136-145); Total Protein, Blood 6.9 g/dL (6.4-8.2)
[2019-02-15 21:17] LABS: Bilirubin, Urine Neg (Neg); Blood, Urine 5+ (Neg); Glucose Qualitative, Urine Neg (Neg); Ketones, Urine Neg (Neg); Leukocyte Esterase, Urine 2+ (Neg); Nitrite, Urine Neg (Neg); Protein, Urine 3+ (Neg); Urobilinogen, Urine NORM (Normal)
[2019-02-15 21:23] LABS: Appearance, Urine Hazy (Clear); Color, Urine Yellow (P-Yellow)
[2019-02-15 21:25] LABS: Red Blood Cells, Urine 25-50 /hpf (0-2); Squamous Epithelial Cells Rare /hpf (Few)
[2019-02-15 21:26] LABS: Bacteria Many /hpf
== END ==
LOC: EDSTATUS 13:06 → EDBD 18:39 → LAB RH 18:39
DX: A41.9 Sepsis, unspecified organism (principal)
CPT/HCPCS: 80053; 81001; 85025; 87077; 87086; 87186

== ENCOUNTER → 2019-03-27 | Outpatient (CLI) | payer OTHER ==
[2019-03-27 09:27] LABS: Creatinine Urine 52.6 mg/dL (27.00-270.00)
[2019-03-27 09:29] LABS: Microalbumin, Urine Quant. 9.76 mg/L (0.000-20.000)
== END | disposition home or self-care (01) ==
LOC: LAB RH 07:31 → EDSTATUS 12:58 → LAB RH 12:59
PROVIDERS: Internal Medicine
DX: N39.8 Other specified disorders of urinary system (principal); N31.8 Other neuromuscular dysfunction of bladder; N10 Acute pyelonephritis; I10 Essential (primary) hypertension
CPT/HCPCS: 81050; 82043; 82570

== ENCOUNTER 2019-07-18 23:17 | Inpatient (IN) | payer OTHER ==
[~2019-07-18] VITALS: Ht 198.1 cm; Wt 103.5 kg
[2019-07-18] MEDS ORDERED: GUAI600T33 PO (23:41)
[2019-07-18] MEDS ORDERED: BENADRYL25 MG PO (23:42)
[2019-07-18] MEDS ORDERED: BISA10S PR (23:43)
[2019-07-18] MEDS ORDERED: ONDA4ODT MM (23:44)
[2019-07-18] MEDS ORDERED: Midodrine HCl2.5 MG PO (23:44)
[2019-07-18 23:50] LABS: Hematocrit 42.7 % (37.0-53.0); Hemoglobin 12.4 g/dL (13.5-17.5); Mean Corpuscular Volume 83 fL (80-100); Mean Platelet Volume 9.2 fL (9.1-12.4); Platelet Count 252 K/mm3 (150-400); RDW Coefficient Variation 16.9 % (11.7-14.2); RDW Standard Deviation 50.9 fL (35.1-46.3); Red Blood Cell Count 5.16 M/mm3 (4.30-5.90); White Blood Cell Count 11.77 K/mm3 (4.00-11.30)
[2019-07-19 00:03] LABS: Alanine Aminotransfer (ALT/SGP 31 U/L (12-78); Albumin, Blood 3.1 g/dL (3.4-5.0); Albumin/Globulin Ratio 0.7 (0.8-1.8); Alk Phos 92 U/L (50-136); Anion Gap 10 mmol/L (6-16); Aspartate Aminotrans (AST/SGOT 32 U/L (12-37); Bilirubin, Total 0.8 mg/dL (0.1-1.0); Blood Urea Nitrogen 12 mg/dL (8-24); Bun/Creatinine Ratio 16.3 (12.0-20.0); CO2, Blood 25 mmol/L (21-32); Calcium, Blood 8.3 mg/dL (8.5-10.1); Chloride, Blood 104 mmol/L (98-108); Creatinine, Blood 0.74 mg/dL (0.60-1.20); Globulin, Blood 4.7 g/dL (2.2-4.0); Glomerular Filtration Rate >60 (60-); Glucose, Blood 83 mg/dL (70-99); Potassium, Blood 4.2 mmol/L (3.5-5.5); Sodium, Blood 139 mmol/L (136-145); Total Protein, Blood 7.8 g/dL (6.4-8.2)
[2019-07-19 00:11] LABS: BAND PERCENT MAN 11 % (0-8); BASOPHILS PERCENT MAN 0 % (0-2); EOSINOPHILS ABSOLUTE MAN 0.11 K/mm3 (0.00-0.68); EOSINOPHILS PERCENT MAN 1 % (0-6); LYMPHOCYTES ABSOLUTE MAN 0.58 K/mm3 (0.84-5.20); LYMPHOCYTES PERCENT MAN 5 % (21-46); MONOCYTES ABSOLUTE MAN 0.35 K/mm3 (0.16-1.47); MONOCYTES PERCENT MAN 3 % (4-13); NEUTROPHILS ABSOLUTE MAN 10.71 K/mm3 (1.96-9.15); SEG NEUTROPHILS PERCENT MAN 80 % (41-73); TOTAL CELLS COUNTED 100
[2019-07-19 01:12] LABS: Source, Urine Catheter
[2019-07-19 01:15] LABS: Bilirubin, Urine Neg (Neg); Blood, Urine 5+ (Neg); Glucose Qualitative, Urine Neg (Neg); Ketones, Urine Neg (Neg); Leukocyte Esterase, Urine 3+ (Neg); Nitrite, Urine Pos (Neg); Protein, Urine 1+ (Neg); Urobilinogen, Urine NORM (Normal)
[2019-07-19 01:16] LABS: International Normalized Ratio 1.07; Prothrombin Time Results 11.4 Sec (9.7-11.5)
[2019-07-19 01:21] LABS: Appearance, Urine Cloudy (Clear); Bacteria Many /hpf; Color, Urine Yellow (P-Yellow); Red Blood Cells, Urine 0-2 /hpf (0-2); Squamous Epithelial Cells Rare /hpf (Few); White Blood Cells, Urine TNTC /hpf (0-5)
[2019-07-19 02:00] LABS: Adenovirus Not Detected (NOT DETECT); Bordetella pertussis Not Detected (NOT DETECT); Chlamydophila pneumoniae Not Detected (NOT DETECT); Coronavirus 229E Not Detected (NOT DETECT); Coronavirus HKU1 Not Detected (NOT DETECT); Coronavirus NL63 Not Detected (NOT DETECT); Coronavirus OC43 Not Detected (NOT DETECT); Human Metapneumovirus Not Detected (NOT DETECT); Human Rhinovirus/Enterovirus Not Detected (NOT DETECT); Influenza A/2009-H1 Not Detected (NOT DETECT); Influenza A/H1 Not Detected (NOT DETECT); Influenza A/H3 Not Detected (NOT DETECT); Influenza B Not Detected (NOT DETECT); Mycoplasma pneumoniae Not Detected (NOT DETECT); Parainfluenza Virus 1 Not Detected (NOT DETECT); Parainfluenza Virus 2 Not Detected (NOT DETECT); Parainfluenza Virus 3 Not Detected (NOT DETECT); Parainfluenza Virus 4 Not Detected (NOT DETECT); Respiratory Syncytial Virus Not Detected (NOT DETECT)
[2019-07-19 04:10] LABS: Hematocrit 42.7 % (37.0-53.0); Hemoglobin 12.7 g/dL (13.5-17.5); Mean Corpuscular HGB 23.8 pg (26.0-34.0); Mean Corpuscular HGB Conc 29.7 g/dL (31.5-36.5); Mean Platelet Volume 8.9 fL (9.1-12.4); Platelet Count 256 K/mm3 (150-400); RDW Coefficient Variation 16.7 % (11.7-14.2); RDW Standard Deviation 49.1 fL (35.1-46.3); Red Blood Cell Count 5.33 M/mm3 (4.30-5.90); White Blood Cell Count 19.74 K/mm3 (4.00-11.30)
[2019-07-19 04:11] LABS: Mean Corpuscular Volume 80 fL (80-100)
[2019-07-19 04:33] LABS: Alanine Aminotransfer (ALT/SGP 29 U/L (12-78); Albumin, Blood 2.8 g/dL (3.4-5.0); Albumin/Globulin Ratio 0.6 (0.8-1.8); Alk Phos 76 U/L (50-136); Anion Gap 8 mmol/L (6-16); Aspartate Aminotrans (AST/SGOT 32 U/L (12-37); Bilirubin, Total 0.8 mg/dL (0.1-1.0); Blood Urea Nitrogen 10 mg/dL (8-24); Bun/Creatinine Ratio 13.4 (12.0-20.0); CO2, Blood 25 mmol/L (21-32); Calcium, Blood 8.6 mg/dL (8.5-10.1); Chloride, Blood 106 mmol/L (98-108); Creatinine, Blood 0.75 mg/dL (0.60-1.20); Globulin, Blood 4.4 g/dL (2.2-4.0); Glomerular Filtration Rate >60 (60-); Glucose, Blood 113 mg/dL (70-99); Sodium, Blood 139 mmol/L (136-145); Total Protein, Blood 7.2 g/dL (6.4-8.2)
--- NOTE | 2019-07-19 07:22 | NUR ---
SHIFT SUMMARY PATIENT ARRIVED TO ICU ROOM 13 ~ 03:30, ADMISSION ASSESSMENT AND PERTINENT PAPERWORK COMPLETED. PICTURES WERE TAKEN OF OLD WOUNDED AREAS FOR MEASUREMENT, INCLUDING OF BUTTOCKS (PINK/RED, BLANCHABLE, FLAKY SKIN SURROUNDING,) AND LEFT POSTERIOR THIGH (RED/PURPLE BASE, RED EDGES, INTACT.) ALSO OF NOTE WERE REDDENED AREAS TO BILATERAL HEELS, BLANCHABLE, HOWEVER TOES WERE NOTED TO HAVE SLOW CAPILARY REFILL. PT. BECAME HYPOTENSIVE NIGHT WORE ON, WAS GIVEN 500 ML NORMAL SALINE BOLUS PER DR. RODRIGUEZ. PRESSURES WERE IMPROVING, THEN STARTED DECREASING AGAIN AT END OF SHIFT. NO C/O DIZZINESS, LIGHTHEADEDNESS AT REST. WAS TRANSFERRED TO [facility] BED THAT COULD EXTEND AND REMOVE FOOTBOARD PATIENT IS 6'6" TALL. MULTIPLE ATTEMPTS WERE MADE TO REACH TOMAS , WHOM PATIENT STATES TO BE POWER OF ATTOURNEY, NO VOICEMAIL ABILITY. OTHERWISE NO ACUTE CHANGES. ASSESSMENT IS CHARTED. WILL CONTINUE TO MONITOR.
--- NOTE | 2019-07-19 08:45 | NUR ---
ASSUMED CARE OF PT AT 0700. REPORT FROM MALVIN CLANCY. PT APPEARS TO BE SLEEPING. WAKES c VERBAL STIMULI. A&OX 3. ANSWERS QUESTIONS APPROPRIATELY. FOLLOWS COMMANDS. PT DENIES PAIN OR OTHER SYMPTOMS. LUNGS DIMINISHED IN RIGHT BASE. PT ON 2L O2 VIA NC, O2 SATS >94%. SR ON MONITOR, RATE 90'S. BP SBP 90'S, PT STATES THIS NORMAL, MIDODRINE GIVEN ORDERED. PT BEDBOUND AT BASELINE D/T MS. GROSS MOVEMENT TO UPPER EXTREMITIES. REPOSITIONED PT REQUESTED. SEE SKIN ASSESSMENT. SUPRAPUBIC CATH IN PLACE. ILLEOSTOMY TO RIGHT ABD. DR BAHENA IN ROOM TO ASSESS. PT STATUS CHANGED TO MED s TELE, REGULAR DIET ORDERED. WILL CONTINUE TO MONITOR.
--- NOTE | 2019-07-19 18:06 | NUR ---
SHIFT SUMMARY PT STATUS CHANGED TO MED s TELE THIS SHIFT. REMAINS IN ISOLATION PENDING COVID TEST. PT ON RA, O2 SATS >92%. PT DENIES COMPLAINTS OR SYMPTOMS. SBP 90-100 THIS SHIFT c MAPS >65. SR c RATE 90-100. CONTINUED ANTIBIOTICS, NS TKO. CLEARY c 850 ML CLEAR YELLOW URINE OUT, PATENT AND DRAINING TO GRAVITY. ILLEOSTOMY BAG c 400 ML OF STOOL OUT. TURNED PT q2 HOURS. ADVANCED DIET TO MECHANICAL SOFT. PT c POOR APPETITE. WILL CONTINUE TO MONITOR UNTIL REPORT TO ONCOMNING NURSE.
--- NOTE | 2019-07-20 05:36 | NUR ---
SHIFT SUMMARY PATIENT SLEPT WELL THROUGH MOST OF NIGHT. TURNED EVERY 2 HOURS TO PROMOTE OPTIMAL SKIN CONDITION. NO C/O PAIN. NO ACUTE CHANGES OVERNIGHT. ASSESSMENT IS CHARTED. VSS. WILL CONTINUE TO MONITOR.
[2019-07-20 07:52] LABS: Hematocrit 38.9 % (37.0-53.0); Hemoglobin 11.5 g/dL (13.5-17.5); Mean Corpuscular HGB 24.1 pg (26.0-34.0); Mean Corpuscular HGB Conc 29.6 g/dL (31.5-36.5); Mean Corpuscular Volume 82 fL (80-100); Mean Platelet Volume 8.9 fL (9.1-12.4); Platelet Count 209 K/mm3 (150-400); RDW Coefficient Variation 17.3 % (11.7-14.2); RDW Standard Deviation 51.1 fL (35.1-46.3); Red Blood Cell Count 4.77 M/mm3 (4.30-5.90); White Blood Cell Count 8.14 K/mm3 (4.00-11.30)
--- NOTE | 2019-07-20 18:01 | NUR ---
SHIFT SUMMARY PT A&OX 4, ANSWERS QUESTIONS APPROPRIATELY. ABLE TO MAKE NEEDS KNOW. DENIES COMPLAINTS. LUNGS CLEAR, PT ON RA, O2 SATS >94%. VSS. ASSISTED c MEALS, q2 HOUR TURNS. BED BATH COMPLETE THIS SHIFT. CONTINUED ANTIBIOTICS. ANTICIPATE POSSIBLE D/C TOMORROW. WILL CONTINUE TO MONITOR UNTIL REPORT TO ONCOMING NURSE.
--- NOTE | 2019-07-20 21:27 | NUR ---
07/19 @ 21:00 CALLED INTO ROOM TO CLEAN OSTOMY. I HAD CHECKED CLAMP AN HOUR AGO DURING ASSESSMENT, WAS FULLY CLAMPED AT END OF OSTOMY BAG. WHEN I WENT INTO ROOM CLAMP WAS UNDER HIS HAND. LINENS AND DIRTY SKIN CLEANED. ADVISED AGAINST HANDLING EQUIPMENT, PATIENT DENIES ANY SUCH DOING. WILL CONTINUE TO MONITOR.
--- NOTE | 2019-07-21 09:08 | NUR ---
PT AWAKE AND ALERT THIS AM. PT DENIES ALL COMPLAINTS. PT PLEASANT AND COOPERATIVE. PT HAS GROSS MOVEMENT OF UPPER EXT, ABLE TO USE CALL LIGHT. LUNGS CLEAR, DECREASED TO BASES. PT IS FEEDER; HAS GOOD APPETITE. VSS, AFEBRILE. AWAITING URINE CX AND COVID RESULTS. DR WILKERSON IN TO SEE PT THIS AM, NO NEW ORDERS. BUTTOCKS EXCORIATED. BUTTOCKS FLOATED ON TWO PILLOWS PER PT REQUEST. REFUSES TO BE TURNED TO SIDE. OFFERED BED BATH; PT DECLINED. OFFERED UP TO CHAIR USING LIFT, PT DECLINED. LEGS ELEVATED ON TWO PILLOWS EACH. WEDGE IN BETWEEN LEGS. PT ABLE TO SWALLOW W/O DIFFICULTY.
--- NOTE | 2019-07-21 16:09 | NUR ---
PT REPOSITIONED. BUTTOCKS APPEARS LESS EXCORIATED. PT DENIES COMPLAINTS. REPORT GIVEN TO CANDACE CLANCY.
--- NOTE | 2019-07-21 16:13 | NUR ---
RECEIVED REPORT. PT AWAKE, ALERT, COOPERATIVE. DENIES PAIN OR SOB. ABLE TO USE PHONE BY SELF. REPOSITIONED. ILEOSTOMY PATENT, 350 FLUID EMPTIED. UO VIA CLEARY INTACT. ANANDA LUCASS
--- NOTE | 2019-07-21 18:27 | NUR ---
PT DENIES COMPLAINTS. WATCHING TV. CONTINUE TO MONITOR. ENHANCED ISOLATION PRECAUTIONS.
--- NOTE | 2019-07-21 19:30 | NUR ---
ASSUME CARES: REPORT RECIEVED FROM OFF GOING RN ORTIZ. ILEOSTOMY PATENT WITH BROWN LIQUID RETURN. ALERT ORIENTED CONVERSENT. LUNG SOUNDS CLEAR RESPIRATIONS REGUAR AND EASY ON ROOM AIR SPOT CHECK SPOW 96% ABDOMEN SOFT WITH BOWEL SOUNDS FOEY PATENT DRAINING HARI URINE. REPOSITIONED PER PT REQUEST . REDDENED AREA ON COCCYX NOTED. CONTINUE TO MONITOR AND REPORT CHANGE IN PATIENT CONDITION.
--- NOTE | 2019-07-22 00:59 | NUR ---
PATIENT REFUSED NALTREXONE STATES " YOUR NOT MIXING IT RIGHT. " CONFIRMED WITH PHARMACY, AND DOUBLE CHECKED [facility] MAR RECORD. CONFIRMED WITH GRAPHIC ART SALES REPRESENTATIVE AND PREVIOUS NOC RN, CRUSHED 50MG NALRREXONE, MIXED WITH 30ML STERILE WATER , IVETTE 3ML IN 5ML SYRINGE CONFIRMED WITH GRAPHIC ART SALES REPRESENTATIVE, AND ADDED MORE STERILE WATER PT HAD STATED 3ML WAS TOO STRONG FOR HIS STOMACH PREVIOUS NOC. PT REFUSED TO TAKE STATES "i TAKE 3ML" EXPLAINED STEPS TO PT AND THAT I HAD CONFIRMED WITH [facility] MEDICATION RECORD. CONTINUES TO REFUSE MED. CONTINUE TO MONITOR AND REPORT CHANGE IN PATIENT CONDITION.
--- NOTE | 2019-07-22 01:11 | NUR ---
07/20 @ 0030 MIXED NALTREXONE DESCRIBED BY OUR PHARMACY AND [facility] MEDICATION RECORD, PATIENT REFUSED 3ML, STATING THAT HE MIXES MEDICATION IN 50 ML OF STERILE WATER AND DRAWS UP 5ML. AFTER EXPLAINING I COULD GET THE SAME RESULT BY ADDING 2ML EXTRA TO ACHIEVE "NORMAL" DILUTION, PATIENT AGREED TO TAKE MEDICATION. PT. STATES THAT "3ML DILUTION IS TOO STRONG FOR HIS STOMACH."
--- NOTE | 2019-07-22 06:02 | NUR ---
SHIFT SUMMARY: RESTS QUIETLY WHEN UNDISTURBED. LUNG SOUNDS REMAIN CLEAR WITH DECREASED SOUNDS ON THE R BASE. RESPIRATIONS REGULAR AND EASY ON ROOM AIR SPOT CHECK SPO2 95-98%. ABDOMNEN SOFT WITH ILEOOSTOMY DEVICE PATENT AND INTACT WITH LIGHT BROWN/LOMBARDI LQUID RETURN. REPOSITIONS AT LEAST EVERY TWO HOURS AND PER PT REQUEST. PILLOWS PLACED UNDER EXTREMITIES PER PT COMFORT. CONTINUE TO MONITOR ANDR REPORT CHANGE IN PATIENT CONDITION
--- NOTE | 2019-07-22 08:27 | NUR ---
REPORT TAKEN AT 0700 THIS AM. PT ASLEEP IN BED. BREAKFAST OFFERED AT 0745, PT REQUESTED TO SLEEP A BIT LONGER BEFORE FOOD AND MEDICATIONS. PT DENIES COMPLAINTS.
--- NOTE | 2019-07-22 10:11 | NUR ---
PT DOING WELL THIS AM. ATE 100% OF MEAL W ASSISTANCE/FEEDER 2ND MS. NATHANIEL. PT DECLINED MIDORINE THIS AM SBP >100 (HE HOLDS HIS MIDORINE FOR SBP>100). PT AFEBRILE. DECLINED BATH, DECLINED TO GET OOB TO CHAIR. COOPERATIVE AND PLEASANT OVERALL. PT HOPING TO BE DISCHARGED TO CARE FACILITY TODAY; PT NOTIFIED THAT WE ARE WAITING ON COVID RESULTS.
--- NOTE | 2019-07-22 11:16 | NUR ---
ISTRATE IN TO SEE PT. NO NEW ORDERS. REPORT GIVEN TO BRYANT CLANCY.
--- NOTE | 2019-07-22 11:20 | NUR ---
ASSUMED CARE REPORT RECIEVED. PT IS LAYING IN BED RESTING QUIETLY AT THIS TIME. PT TOLERATED PO PILLS WITH WATER WELL. PT DENIES ANY NEEDS AT THIS TIME. WILL CONTINUE TO MONITOR.
--- NOTE | 2019-07-22 17:50 | NUR ---
SHIFT SUMMARY NO ACUTE CHANGES THIS SHIFT. PT HAS SLEPT OFF AND ON THROUGHOUT THE DAY. WHEN AWAKE PT IS ALERT AND ORIENTED. PT IS SLOW TO RESPOND, BUT ANSWERS QUESTIONS APPROPRIATELY. PT HAS DENIED PAIN OR DISCOMFORT. VITAL SIGNS HAVE REMAINED STABLE. PT WITH LIMITED GROSS MOVEMENT TO UPPER EXTREMITIES. LOWER EXTREMITIES FLOATED ON PILLOWS. COMPLETE ASSISTANCE FEEDING WITH DINNER TRAY THIS EVENING. PT TOLERATING PO FOODS AND FLUIDS WELL. IV'S SALINE LOCKED. INDWELLING CLEARY REMAINS IN PLACE WITH HARI URINE OUTPUT NOTED. WILL CONTINUE TO MONITOR AND REPORT OFF TO ONCOMING RN.
--- NOTE | 2019-07-22 20:00 | NUR ---
ASSUMED CARE OF PT AT 1915. REPORT RECEIVED. PT PRESENTS IN BED. ALERT AND ORIENTED. PLEASANT AND COOPERATIVE WITH CARE AND ASSESSMENT. NO COMPLAINTS OF PAIN OR DISTRESS. VERBALLY SLOW TO RESPOND TO QUESTIONS. HAS GROSS MOTOR TO EXTREMITIES. DISCUSSED HAVING PT ON A TURN SCHEDULE Q 2 HOURS. PT AGREES. WILL REVIEW CHART AND PLAN OF CARE FOR THIS PT.
--- NOTE | 2019-07-23 | NUR ---
PT HAS BEEN TOLERATING TURNS WELL IN BED. HAS REMAINED AFEBRILE. PT STATES THAT HE HAS TAKEN HIS REVIA SPECIFICALLY 50 MG MIXED WITH 50 ML H20. THEN A DOSE OF 3ML OF DISOLVED MEDICATION GIVEN. WILL MIXED PER PT'S REQUEST. PT MADE AWARE THAT THIS DOSAGE EQUATES TO 3MG REVIA VERSUS 5 MG. PT STATES THIS IS DOSAGE HE TAKES. DID DISCUSS WITH PT THAT [facility] H20. AND THAT HE HAS PROBABLY BEEN RECEIVING 5 MG HIS ORDER FROM [facility].
--- NOTE | 2019-07-23 07:37 | NUR ---
ASSUMED CARE: PT RESTING QUIETLY AT THIS TIME. MED NO TELE STATUS. NO ACUTE NEEDS OR CONCERNS AT THIS TIME
--- NOTE | 2019-07-23 11:34 | NUR ---
RECIEVED REPORT FROM MARIO, WIRE STEWARD, AT 1124. PATIENT TO TRANSFER TO ROOM 131.
--- NOTE | 2019-07-23 11:59 | NUR ---
VEHICLE LEASING AND RENTAL MANAGER GAVE REPORT TO JOSE CLANCY. PT TRANSFERRED VIA BED TO ROOM 331 BY TOP PRINTING PRESS OPERATOR. NO FURTHER NEEDS OR CONCERNS
--- NOTE | 2019-07-23 15:06 | NUR ---
PATIENT NHAD AN UNEVENTFUL SHIFT FROM THE TIME HE ENTERED THIS UNIT. DENIES PAIN AND DISCOMFORT. REPOSITIONED Q2HRS PATIENT REQUESTS. CLEARY PATIENT AND URINE DRAINING TO GRAVITY; ILIOSTOMY ALSO PATENT WITH SOFT BROWN STOOL PRESENT. PATIENT DENIES ANY NEEDS AT THIS TIME. WILL CONTINUE TO MONITOR AND PROVIDE CARE NEEDED.
--- NOTE | 2019-07-24 04:39 | NUR ---
CENTRAL STORES ATTENDANT SUMMARY PT A/O X4. DENIES SOB, NAUSEA, CHEST PAIN. COMPLAINS OF PAIN IN COCCYX AREA. MEPLIEX IN PLACE. FREQUENT REPOSITIONING PROVIDED THROUGHOUT THE NIGHT. MEDICATED FOR PAIN PER EMAR. VSS. CLEARY PATENT AND DRAINING. NO ACUTE CHANGES.
[2019-07-24 05:19] LABS: BASOPHILS ABSOLUTE AUTO 0.06 K/mm3 (0.00-0.23); BASOPHILS PERCENT AUTO 1 % (0-2); EOSINOPHILS ABSOLUTE AUTO 0.39 K/mm3 (0.00-0.68); EOSINOPHILS PERCENT AUTO 6 % (0-6); Hematocrit 39.2 % (37.0-53.0); Hemoglobin 11.7 g/dL (13.5-17.5); IMMATURE GRAN ABSOLUTE AUTO 0.01 K/mm3 (0.00-0.10); IMMATURE GRAN PERCENT AUTO 0 % (0-1); LYMPHOCYTES ABSOLUTE AUTO 1.51 K/mm3 (0.84-5.20); LYMPHOCYTES PERCENT AUTO 22 % (21-46); MONOCYTES ABSOLUTE AUTO 0.77 K/mm3 (0.16-1.47); MONOCYTES PERCENT AUTO 11 % (4-13); Mean Corpuscular HGB 23.9 pg (26.0-34.0); Mean Corpuscular HGB Conc 29.8 g/dL (31.5-36.5); Mean Corpuscular Volume 80 fL (80-100); Mean Platelet Volume 8.6 fL (9.1-12.4); NEUTROPHILS ABSOLUTE AUTO 4.21 K/mm3 (1.96-9.15); NEUTROPHILS PERCENT AUTO 61 % (41-73); Platelet Count 260 K/mm3 (150-400); RDW Coefficient Variation 16.8 % (11.7-14.2); RDW Standard Deviation 48.7 fL (35.1-46.3); Red Blood Cell Count 4.89 M/mm3 (4.30-5.90); White Blood Cell Count 6.95 K/mm3 (4.00-11.30)
[2019-07-24 05:37] LABS: Anion Gap 8 mmol/L (6-16); Blood Urea Nitrogen 15 mg/dL (8-24); Bun/Creatinine Ratio 21.1 (12.0-20.0); CO2, Blood 27 mmol/L (21-32); Calcium, Blood 8.2 mg/dL (8.5-10.1); Chloride, Blood 105 mmol/L (98-108); Creatinine, Blood 0.71 mg/dL (0.60-1.20); Glomerular Filtration Rate >60 (60-); Glucose, Blood 86 mg/dL (70-99); Potassium, Blood 4.1 mmol/L (3.5-5.5); Sodium, Blood 140 mmol/L (136-145)
--- NOTE | 2019-07-24 12:20 | NUR ---
PT REFUSING TO BE REPOSITIONED TO PREVENT PRESSURE ULCERS AND FURTHER SKIN BREAKDOWN. VERBALLY EDUCATED PT THAT, BECAUSE OF HIS SEVERELY LIMITED MOBILITY, IT IS VERY IMPORTANT THAT PRESSURE IS OFF-LOADED FROM EXTREMITIES AND BONY PROMINENCES AT LEAST EVERY 2 HOURS. PATIENT VERBALIZED UNDERSTANDING OF THIS EDUCATION, AND STATED THAT HE IS COMFORTABLE AND DOES NOT WANT TO BE MOVED. WILL CONTINUE TO MONITOR.
--- NOTE | 2019-07-24 16:58 | NUR ---
PATIENT D/C'D BACK TO [facility] AT 1638 VIA W/C TRANSPORT [facility] IV SALINE LOCK D/C'D WITHOUT INCIDENT. REPORT GIVEN TO ONESIMO CLANCY, PACKET HANDED TO CORRESPONDENCE SPECIALIST.
== END 2019-07-24 16:37 | DRG 698 ==
LOC: ER 23:17 → ICUW 07-19 03:20 → MEDS 07-23 11:55 → ENPENDDIS 07-24 10:38 → MEDS 07-24 16:37
PROVIDERS: Family Medicine; Internal Medicine; Physician Assistant; ADMIT Internal Medicine
PROC: 8E0ZXY6 Isolation (ICD-10-PCS; principal; 2019-07-23)
DX: T83.511A Infection and inflammatory reaction due to indwelling urethral catheter, initial encounter (principal); A41.52 Sepsis due to Pseudomonas; A41.89 Other specified sepsis; N39.0 Urinary tract infection, site not specified; B96.1 Klebsiella pneumoniae [K. pneumoniae] as the cause of diseases classified elsewhere; G35 Multiple sclerosis; F32.9 Major depressive disorder, single episode, unspecified; F03.90 Unspecified dementia, unspecified severity, without behavioral disturbance, psychotic disturbance, mood disturbance, and anxiety; Z20.828 Contact with and (suspected) exposure to other viral communicable diseases; E66.9 Obesity, unspecified; Z86.718 Personal history of other venous thrombosis and embolism; Z79.01 Long term (current) use of anticoagulants; Z79.899 Other long term (current) drug therapy; Z88.6 Allergy status to analgesic agent; Z88.5 Allergy status to narcotic agent; Z88.2 Allergy status to sulfonamides; Z91.09 Other allergy status, other than to drugs and biological substances
CPT/HCPCS: 0099U; 36415; 71045; 80048; 80053; 81001; 83605; 83880; 85025; 85027; 85610; 85730; 87040; 87077; 87086; 87186; 93005; 93010; 96361; 96365; 99285-25; A9270; J0696; J0713; J2185; J7030; J7120; U0003

== ENCOUNTER 2019-08-29 16:52 | Inpatient (IN) | payer OTHER ==
[~2019-08-29] VITALS: Ht 190.5 cm; Wt 121.8 kg
[~2019-08-29 16:52] MED LIST changes: -ELIQUIS2.5 MG PO; -LACT PO; -MIRALAX17 GM PO; -POTCIT10 PO
[2019-08-29 17:34] LABS: BASOPHILS ABSOLUTE AUTO 0.01 K/mm3 (0.00-0.23); BASOPHILS PERCENT AUTO 0 % (0-2); EOSINOPHILS ABSOLUTE AUTO 0.02 K/mm3 (0.00-0.68); EOSINOPHILS PERCENT AUTO 0 % (0-6); Hematocrit 52.6 % (37.0-53.0); Hemoglobin 15.1 g/dL (13.5-17.5); Mean Corpuscular HGB 23.6 pg (26.0-34.0); Mean Corpuscular HGB Conc 28.7 g/dL (31.5-36.5); Mean Corpuscular Volume 82 fL (80-100); Platelet Count 256 K/mm3 (150-400); RDW Standard Deviation 48.6 fL (35.1-46.3); Red Blood Cell Count 6.39 M/mm3 (4.30-5.90); White Blood Cell Count 4.83 K/mm3 (4.00-11.30)
[2019-08-29 17:35] LABS: IMMATURE GRAN ABSOLUTE AUTO 0.01 K/mm3 (0.00-0.10); IMMATURE GRAN PERCENT AUTO 0 % (0-1); LYMPHOCYTES ABSOLUTE AUTO 0.15 K/mm3 (0.84-5.20); LYMPHOCYTES PERCENT AUTO 3 % (21-46); MONOCYTES ABSOLUTE AUTO 0.05 K/mm3 (0.16-1.47); MONOCYTES PERCENT AUTO 1 % (4-13); NEUTROPHILS ABSOLUTE AUTO 4.59 K/mm3 (1.96-9.15); NEUTROPHILS PERCENT AUTO 95 % (41-73)
[2019-08-29 17:51] LABS: Alanine Aminotransfer (ALT/SGP 34 U/L (12-78); Albumin, Blood 3.5 g/dL (3.4-5.0); Albumin/Globulin Ratio 0.7 (0.8-1.8); Alk Phos 111 U/L (50-136); Anion Gap 6 mmol/L (6-16); Aspartate Aminotrans (AST/SGOT 25 U/L (12-37); Bilirubin, Total 0.6 mg/dL (0.1-1.0); Blood Urea Nitrogen 14 mg/dL (8-24); Bun/Creatinine Ratio 13.6 (12.0-20.0); CO2, Blood 28 mmol/L (21-32); Chloride, Blood 102 mmol/L (98-108); Creatinine, Blood 1.03 mg/dL (0.60-1.20); Globulin, Blood 5.2 g/dL (2.2-4.0); Glomerular Filtration Rate >60 (60-); Glucose, Blood 87 mg/dL (70-99); Magnesium, Blood 1.9 mg/dL (1.6-2.4); Sodium, Blood 136 mmol/L (136-145); Total Protein, Blood 8.7 g/dL (6.4-8.2)
[2019-08-29] MEDS ORDERED: DULO30 PO (18:51)
[2019-08-29] MEDS ORDERED: FAMO40 PO (18:51)
[2019-08-29] MEDS ORDERED: METO10 PO (18:52)
[2019-08-29] MEDS ORDERED: Naltrexone HCl50 MG PO (18:55)
[2019-08-29] MEDS ORDERED: ELIQUIS2.5 MG PO (18:55)
[2019-08-29] MEDS ORDERED: CLON.5 PO (18:56)
[2019-08-29] MEDS ORDERED: POTCIT10 PO (18:56)
[2019-08-29] MEDS ORDERED: ACET325 PO (18:57)
[2019-08-29] MEDS ORDERED: GABA300 PO (18:57)
[2019-08-29] MEDS ORDERED: MIRALAX17 GM PO (18:58)
[2019-08-29] MEDS ORDERED: LACT PO (18:59)
[2019-08-29] MEDS ORDERED: BISA10S PR (19:00)
[2019-08-29] MEDS ORDERED: GUAI600T33 PO (19:00)
[2019-08-29] MEDS ORDERED: BENADRYL25 MG PO (19:00)
[2019-08-29] MEDS ORDERED: Midodrine HCl2.5 MG PO (19:01)
[2019-08-29] MEDS ORDERED: ONDA8 PO (19:01)
--- NOTE | 2019-08-29 20:47 | NUR ---
ASSUMED CARE NOTE: PT ARRIVED TO UNIT VIA STRETCHER AT 2046, ASSUMED CARE AT THIS TIME. REPORT RECEVIED FROM DOROTEO ER NURSE. PT IS ABLE TO ANSWER QUESTIONS APPROPRIATLY, HE IS DROWSY, HOWEVER HE IS ORIENTEDX4. HE IS ON RA AT THIS TIME WITH SPO2 AT 92% PT HAS DIMINISHED LUNG SOUNDS T/O. PT IS IN SINUS TACH WITH HR IN THE 120'S. SOFT BP NOTED, MAP ABOVE 65. PT HAS AN ILEOSTOMY WITH BROWN LIQUID STOOL NOTED. TENDERNESS TO ABDOMEN NOTED IN LLQ NOTED WITH PALPATION. PT HAS A CHRONIC CLEARY, 16F, DRAINING HARI COLORED URINE WITH SEDIMENT. NURSING RECORDS STATE THAT CLEARY HAS CHANGED OUT TODAY 08/29/19. RED DISCHARGE NOTED AT THE MEATUS NOTED ALONG WITH A SLIGHT TEAR, PHYSICAN AWARE. ORDERS TO NOT CHANGE CLEARY GIVEN, TP PREVENT FURTHER TRAUMA TO THE URETHRA. RECTAL PROBE INSERTED, READING 102.3. FAN APPLIED, ALONG WITH ICE PACKS TO GRION, NO BLANKET, ONLY SHEET FOR PRIVACY. BILAT DROP FOOT BRACES NOTED (FROM HOME). NS FLUIDS RUNNING WO AT THIS TIME. BED AT LOWEST LEVEL, CALL LIGHT WITHIN REACH.
--- NOTE | 2019-08-29 21:36 | NUR ---
UPDATE: CALLED HOSPITALIST BRYANT, REGARDING ELEVATED TEMP AND ELEVATED LACTIC OF 3.5. ORDERS TO GIVE 15MG OF TORDOL IV, OT ORDER GIVEN. CALLED PHARMACY TO VERIFY ALLERGIES. PT STATES HE CANNOT TAKE NSAIDS BY MOUTH BECAUSE IT " TEARS UP MY STOMACH" PT IS WILLING TO TAKE TORDOL IV, HOSPITALIST AND PHARMACY AWARE. PT STATES HE DOES TAKE ACETOMINOPHEN AT HOME, DENIES ALLERY. PT ALSO REFUSES TO TAKE ACETOMINOPHEN RECTALLY.
[2019-08-30 03:35] LABS: Hematocrit 43.5 % (37.0-53.0); Hemoglobin 12.3 g/dL (13.5-17.5); Mean Corpuscular HGB Conc 28.3 g/dL (31.5-36.5); Mean Corpuscular Volume 85 fL (80-100); Mean Platelet Volume 9.3 fL (9.1-12.4); NRBC ABSOLUTE 0.02 K/mm3 (0.00-0.02); NRBC Auto 0.1 /100 WBC (0.0-0.2); Platelet Count 222 K/mm3 (150-400); RDW Coefficient Variation 16.4 % (11.7-14.2); RDW Standard Deviation 50.7 fL (35.1-46.3); Red Blood Cell Count 5.13 M/mm3 (4.30-5.90)
[2019-08-30 03:54] LABS: Magnesium, Blood 1.7 mg/dL (1.6-2.4)
[2019-08-30 04:02] LABS: Alanine Aminotransfer (ALT/SGP 28 U/L (12-78); Albumin, Blood 2.3 g/dL (3.4-5.0); Albumin/Globulin Ratio 0.6 (0.8-1.8); Alk Phos 73 U/L (50-136); Anion Gap 7 mmol/L (6-16); Aspartate Aminotrans (AST/SGOT 29 U/L (12-37); Bilirubin, Total 0.5 mg/dL (0.1-1.0); Blood Urea Nitrogen 11 mg/dL (8-24); Bun/Creatinine Ratio 10.6 (12.0-20.0); CO2, Blood 23 mmol/L (21-32); Calcium, Blood 7.7 mg/dL (8.5-10.1); Chloride, Blood 113 mmol/L (98-108); Creatinine, Blood 1.04 mg/dL (0.60-1.20); Glomerular Filtration Rate >60 (60-); Glucose, Blood 98 mg/dL (70-99); Potassium, Blood 4.2 mmol/L (3.5-5.5); Sodium, Blood 143 mmol/L (136-145)
[2019-08-30 04:03] LABS: Total Protein, Blood 6.3 g/dL (6.4-8.2)
[2019-08-30 04:30] LABS: BAND PERCENT MAN 26 % (0-8); BASOPHILS PERCENT MAN 0 % (0-2); EOSINOPHILS PERCENT MAN 0 % (0-6); LYMPHOCYTES ABSOLUTE MAN 0.32 K/mm3 (0.84-5.20); LYMPHOCYTES PERCENT MAN 1 % (21-46); METAMYELOCYTE ABSOLUTE MAN 0.32 K/mm3 (0.00-0.00); METAMYELOCYTE PERCENT MAN 1 % (0-0); MONOCYTES ABSOLUTE MAN 4.49 K/mm3 (0.16-1.47); MONOCYTES PERCENT MAN 14 % (4-13); NEUTROPHILS ABSOLUTE MAN 26.96 K/mm3 (1.96-9.15); SEG NEUTROPHILS PERCENT MAN 58 % (41-73); TOTAL CELLS COUNTED 100
--- NOTE | 2019-08-30 04:47 | NUR ---
UPDATE: CALLED HOSPITALIST CHAZ, REGARDING LOWERING BP. ORDERS TO GIVE 500ML NS BOLUS, AND TO RESTART MIDORINE ORDERS FROM HOME
--- NOTE | 2019-08-30 05:28 | NUR ---
SHIFT SUMMARY: PT IS ALERT AND ORIENTEDX4. PT IS AWAKE AND ABLE TO FOLLOW A CONVERSTATION AND ANSWER QUESTIONS APPROPRIATLY. PT IS ON RA WITH SPO2 AT 96%. PT WAS PLACED ON 2L OF 02 DUE TO SPO2 DROPPING TO 88% WHEN PT IS ASLEEP. PT IN SR WITH HR IN THE 90'S. PT HAS BEEN HAVING SOFT BLOOD PRESSURES. FIRST DOSE OF MIDORINE GIVEN ORDERED. ILEOSTOMY DRAINING BROWN LIQUID STOOL. PICTURE OF WOUNDS TAKEN , PLACED IN CHART. PT CONTINUES TO WEAR BILAT DROP FOOT BOOTS. PT HAS BEEN REPOSITIONED Q2H TO PREVENT FURTHER SKIN BREAKDOWN. PT WAS ABLE TO TAKE PILLS WITH APPLESAUCE SAFETLY, NO COUGH OR WET VOICE NOTED. NS RUNNING AT 100ML/HR. BED AT LOWEST LEVEL. WILL CONTINUE TO MONITOR PT UNTIL REPORT IS GIVEN TO ONCOMING SHIFT.
--- NOTE | 2019-08-30 08:30 | NUR ---
ASSUMED CARE OF PT AT 0700. REPORT FROM CHRIS CLANCY. PT WAKES c VERBAL STIMULI. A&OX 4. ANSWERS QUESTIONS APPROPRIATELY. FOLLOWS COMMANDS. DENIES COMPLAINTS. LUNGS DIMINISHED IN BASES. PT P/W/D. SKIN FRAGILE, SEE PHOTOS IN CHART. MEIPLEX TO COCCXY AND LEFT NESBITT. ILLEOSTOMY TO LEFT ABD, LIQUID BROWN STOOL. CLEARY PATENT AND DRAINING TO GRAVITY. DRIED BLOOD TO MEATUS. BILATERAL FOOT DROP, HEEL PROTECTORS IN PLACE. RECTAL TEMP PROBE IN PLACE. VSS. WILL CONTINUE TO MONITOR.
--- NOTE | 2019-08-30 18:12 | NUR ---
SHIFT SUMMARY PT ASSESSMENT REMAINS UNCHANGED. A&O X3. DENIES COMPLAINTS. PT HAS ONE EPISODE OF NECK PAIN. RELIEVED c TORADOL. TMAX 101.1, RESOLVED c TYLENOL AND TORADOL. VSS. ANTIBIOTICS CHANGED THIS SHIFT. LACTIC ACID TRENDING DOWN. POOR APPETITE. PT REFUSED BEDBATH TODAY. ENCOURAGED TURNS, PT ALLOWED FOR MOST, OCCASIONALLY REFUSED. WILL CONTINUE TO MONITOR UNTIL REPORT TO ONCOMING NURSE.
--- NOTE | 2019-08-30 20:00 | NUR ---
ASSUMED CARE OF PT AT 1915. REPORT RECEIVED AT BEDSIDE. PT PRESENTS IN BED. ALERT AND ORIENTED. PLEASANT AND COOPERATIVE WITH CARE AND ASSESSMENT. PT HAS SOMEWHAT SLOWED OR DELAYED RESPONSES TO QUESTIONS WHICH IS PT'S BASELINE. ILEOSTY EMPTIED OF 425 ML STOOL AND LARGE AMOUNT OF FLATUS. WILL REVIEW CHART AND PLAN OF CARE FOR THIS PT.
--- NOTE | 2019-08-30 22:20 | NUR ---
ASSUMED CARE NOTE: ASSUMED CARE OF PT AT 2220. PT IS A/OX4, PT IS ABLE TO FOLLOW DIRECTIONS AND ANSWER QUESTIONS APPROPRIATLY. PT IS ON RA WITH SPO2 ABOVE 95%. PT IN NSR WITH HR IN THE 80'S. PT DENIES CP/SOB AT THIS TIME. PT'S ILEOSTOMY DRAINING DARK LIQUID STOOL. PT IS BED BOUND. VSS. AFEBRILE. PT STATES HE HAS NO NEEDS AT THIS TIME. WILL CONTINUE TO MONITOR PT T/O SHIFT.
--- NOTE | 2019-08-31 00:34 | NUR ---
UPDATE: GAVE REPORT TO IVY CLANCY, WHO IS TAKING OVER CARE.
--- NOTE | 2019-08-31 02:00 | NUR ---
PT RESTING IN BED. NO ISSUES TO REPORT
[2019-08-31 06:56] LABS: BASOPHILS ABSOLUTE AUTO 0.04 K/mm3 (0.00-0.23); BASOPHILS PERCENT AUTO 0 % (0-2); EOSINOPHILS ABSOLUTE AUTO 0.42 K/mm3 (0.00-0.68); EOSINOPHILS PERCENT AUTO 3 % (0-6); Hematocrit 36.1 % (37.0-53.0); Hemoglobin 10.4 g/dL (13.5-17.5); IMMATURE GRAN ABSOLUTE AUTO 0.13 K/mm3 (0.00-0.10); IMMATURE GRAN PERCENT AUTO 1 % (0-1); LYMPHOCYTES ABSOLUTE AUTO 0.71 K/mm3 (0.84-5.20); LYMPHOCYTES PERCENT AUTO 5 % (21-46); MONOCYTES ABSOLUTE AUTO 0.96 K/mm3 (0.16-1.47); MONOCYTES PERCENT AUTO 6 % (4-13); Mean Corpuscular HGB Conc 28.8 g/dL (31.5-36.5); Mean Corpuscular Volume 83 fL (80-100); Mean Platelet Volume 9.7 fL (9.1-12.4); NEUTROPHILS ABSOLUTE AUTO 13.27 K/mm3 (1.96-9.15); NEUTROPHILS PERCENT AUTO 85 % (41-73); Platelet Count 196 K/mm3 (150-400); RDW Coefficient Variation 16.8 % (11.7-14.2); RDW Standard Deviation 51.5 fL (35.1-46.3); Red Blood Cell Count 4.34 M/mm3 (4.30-5.90); White Blood Cell Count 15.53 K/mm3 (4.00-11.30)
[2019-08-31 07:10] LABS: Alanine Aminotransfer (ALT/SGP 20 U/L (12-78); Albumin/Globulin Ratio 0.5 (0.8-1.8); Alk Phos 65 U/L (50-136); Anion Gap 4 mmol/L (6-16); Aspartate Aminotrans (AST/SGOT 21 U/L (12-37); Bilirubin, Total 0.3 mg/dL (0.1-1.0); Blood Urea Nitrogen 13 mg/dL (8-24); Bun/Creatinine Ratio 16.4 (12.0-20.0); CO2, Blood 25 mmol/L (21-32); Calcium, Blood 7.5 mg/dL (8.5-10.1); Chloride, Blood 117 mmol/L (98-108); Creatinine, Blood 0.79 mg/dL (0.60-1.20); Globulin, Blood 3.7 g/dL (2.2-4.0); Glomerular Filtration Rate >60 (60-); Glucose, Blood 93 mg/dL (70-99); Potassium, Blood 3.4 mmol/L (3.5-5.5); Sodium, Blood 146 mmol/L (136-145); Total Protein, Blood 5.7 g/dL (6.4-8.2)
--- NOTE | 2019-08-31 07:15 | NUR ---
REC'D REPORT FROM JULIETH HAYNES AND AM NOW ASSUMING CARE OF THIS PT.
--- NOTE | 2019-08-31 08:10 | NUR ---
DR WILKERSON IN TO ASSESS PT. PT CHANGED TO MEDICAL STATUS.
--- NOTE | 2019-08-31 08:30 | NUR ---
AM ASSESSMENT: PT IS ALERT AND ORIENTED TO SELF/PLACE/FOLLOWS DIRECTIONS. DOES NOT CARE TO ANSWER THE ORIENTATION QUESTIONS. PT REPORTS MILD GENERAL DISCOMFORT 2/10. DENIES NEEDING ANY INTERVENTION FOR THIS DISCOMFORT. LUNGS ARE CLEAR BUT DIM IN BILATERAL BASES. HR REGULAR, SR-70'S RANGE. PT REC'ING NS @ 100ML/HR. ABD LARGE/ROUND/NON-TENDER. BT'S DISTANT BUT ACTIVE IN ALL QUADS. PT ON REGULAR DIET AND TAKES PILLS WHOLE IN APPLESAUCE. 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 PT DOES REFUSE TO SIT AT A 90 DEGREE ANGLE FOR MEALS R/T DISCOMFORT IN THIS POSITION. PT HAS ILEOSTOMY THAT IS DRAINING LIQUID BROWN STOOL. CHRONIC CLEARY CATH IN PLACE FOR HX RETENTION. DRAINING DARK TEA COLORED URINE TO GRAVITY. WOUND PRESENT TO LT NESBITT WITH MEPILEX IN PLACE. WOUND BED FLESHY AND APPEARS TO BE HEALING WELL. NO SLOUGH OR ESCHAR PRESENT. -DNR STATUS -MEDICAL NO TELEMETRY STATUS, WILL TNX WHEN A BED IS AVAILABLE -
--- NOTE | 2019-08-31 11:51 | NUR ---
PT UPDATE: PT BATHED, LINENS CHANGED. LOTION APPLIED TO HIS SKIN. CATH CARE DONE. PT REPOSITIONED AND ALL EXTREMITIES ELEVATED ON PILLOWS. PT STARTED ON CEFTRIAXONE AND MEDICATED WITH GABAPENTIN. CALL LIGHT WITHIN REACH. AWAITING A MEDICAL FLOOR BED.
--- NOTE | 2019-08-31 17:36 | NUR ---
REPORTED OFF: REPORTED OFF TO JULIETH MALAVE WHOM WILL ASSUME CARE OF THIS PT ONCE TNX'D TO 310.
--- NOTE | 2019-08-31 17:37 | NUR ---
SHIFT SUMMARY: PT REMAINS ALERT AND ORIENTED WITH CARE. PT IS SLOW TO RESPOND TO QUESTIONS, HOWEVER, ANSWERS THEM APPROPRIATELY. PT IS VERY DEBILITATED R/T HX MS AND IS FLACCID IN THE LE'S BILATERALLY AND VERY LIMITED IN MOBILITY IN THE UE'S, WHICH RENDER HIM A FULL ASSIST FEEDER. NO C/O OF PAIN UNTIL THIS EVENING, WHEN PT REPORTS NECK PAIN 7/10. PT MEDICATED WITH TORADOL WHICH PROVED TO BE HELPFUL YESTERDAY. LUNGS REMAIN CLEAR BUT DIMINISHED IN THE BILATERAL BASES SP02 >90% ON RA. HR REGULAR, SR-70-80'S RANGE, BUT WILL BE D/C'D FROM TELEMETRY UPON TNX TO MEDICAL FLOOR. PT WITH CHRONIC ILEOSTOMY WITH LIQUID BROWN DRAINAGE AND CHRONIC CLEARY FOR RETENTION WITH DARK TEA COLORED URINE. MEPILEX DRSGS TO LT NESBITT/RT BUTTOCKS IS C/D/I.
--- NOTE | 2019-08-31 18:06 | NUR ---
PT TNX'D VIA BED PER JORJE PARKER AND THIS RN TO 310. CHART AND PT'S SHIRT AND LANDYARD WITH LEIJA PLACED IN THE PT BELONGING BAG AND POINTED OUT PLACEMENT TO PT ONCE WE ARRIVED TO THE MEDICAL FLOOR, PT IS VERY CONCERNED ABOUT LOSING THESE BELONGINGS.
--- NOTE | 2019-08-31 18:10 | NUR ---
PT TRANSFERED FROM ICU AT 1800. PT HAS BEEN SETTLED INTO ROOM AND WAS REPOSITIONED. AID IS FEEDING PT DINNER CALL LIGHT WITHIN REACH. PT AO AND ABLE TO CONVEY NEEDS AT THIS TIME. NO DISTRESS NOTED WILL CONTINUE TO MONITOR.
--- NOTE | 2019-09-01 06:15 | NUR ---
PUPPY WALKER SUMMARY PT A/O X4. SLOW SPEECH. FLAT AFFECT. PT IS SPECIFIC ABOUT CARE. PT DID NOT WANT TO REPOSITIONED TOO FREQUENTLY. DOES NOT LIKE TO HAVE HOB TOO HIGH WHEN TAKING MEDICATIONS. REFUSED BLOOD DRAWLS THIS MORNING. PT REGULARLY REFUSES BLOOD DRAWLS IN THE AM PER LAB. VSS. PT HAD A HEACHACHE TONIGHT WHICH WAS MEDICATED WITH TYLENOL. SLEPT WELL TONIGHT. NO ACUTE CHANGES.
[2019-09-01 08:56] LABS: BASOPHILS ABSOLUTE AUTO 0.03 K/mm3 (0.00-0.23); BASOPHILS PERCENT AUTO 0 % (0-2); EOSINOPHILS ABSOLUTE AUTO 0.49 K/mm3 (0.00-0.68); EOSINOPHILS PERCENT AUTO 4 % (0-6); Hematocrit 37.3 % (37.0-53.0); Hemoglobin 10.9 g/dL (13.5-17.5); IMMATURE GRAN ABSOLUTE AUTO 0.06 K/mm3 (0.00-0.10); IMMATURE GRAN PERCENT AUTO 1 % (0-1); LYMPHOCYTES ABSOLUTE AUTO 0.59 K/mm3 (0.84-5.20); LYMPHOCYTES PERCENT AUTO 5 % (21-46); MONOCYTES ABSOLUTE AUTO 0.61 K/mm3 (0.16-1.47); MONOCYTES PERCENT AUTO 5 % (4-13); Mean Corpuscular HGB 24.1 pg (26.0-34.0); Mean Corpuscular HGB Conc 29.2 g/dL (31.5-36.5); Mean Corpuscular Volume 82 fL (80-100); Mean Platelet Volume 9.7 fL (9.1-12.4); NEUTROPHILS ABSOLUTE AUTO 9.54 K/mm3 (1.96-9.15); NEUTROPHILS PERCENT AUTO 84 % (41-73); Platelet Count 181 K/mm3 (150-400); RDW Coefficient Variation 16.7 % (11.7-14.2); RDW Standard Deviation 50.2 fL (35.1-46.3); Red Blood Cell Count 4.53 M/mm3 (4.30-5.90); White Blood Cell Count 11.32 K/mm3 (4.00-11.30)
[2019-09-01 09:10] LABS: Anion Gap 4 mmol/L (6-16); Blood Urea Nitrogen 13 mg/dL (8-24); Bun/Creatinine Ratio 18.9 (12.0-20.0); CO2, Blood 25 mmol/L (21-32); Calcium, Blood 7.8 mg/dL (8.5-10.1); Chloride, Blood 114 mmol/L (98-108); Creatinine, Blood 0.69 mg/dL (0.60-1.20); Glomerular Filtration Rate >60 (60-); Glucose, Blood 79 mg/dL (70-99); Potassium, Blood 3.6 mmol/L (3.5-5.5); Sodium, Blood 143 mmol/L (136-145)
--- NOTE | 2019-09-01 13:18 | NUR ---
Supportive visit this afternoon. Pt is known to this music writer from previous hospital stays. Pt denies pain, anxiety, and dyspnea at this time. Encouraged Pt to discuss concerns and offered therapeutic listening. Pt reports no concerns at this time. Discussed case with Bedside RN Scottie. Scottie reports no concerns at this time. Tubed copy of Pt's POLST to medical records. Palliative Care will remain available if called upon.
--- NOTE | 2019-09-01 15:43 | NUR ---
SHIFT SUMMARY PT IS A/O X 4 BUT SLOW TO RESPOND AND THIS IS HIS BASELINE. HE HAS NO C/O PAIN. HE IS A MAX X 2 ASSIST FOR REPOSTIONING AND HAS BEEN TURNED FREQUENTLY. WOUND DRESSINGS WERE CHANGED ORDERED AND PRESSURE POINTS ARE OFFLOADED WITH PILLOWS AND FOAM BOOTS ON HIS FEET. CLEARY AND OSTOMY REMAIN INTACT AND PATENT. HE IS ABLE TO MAKE HIS NEEDS KNOWN AND CALLS FOR HELP WHEN NEEDED. THE PLAN IS FOR HIM TO DC BACK TO [facility] TOMORROW. HE IS RESTING IN BED WITH CALL LIGHT IN REACH.
--- NOTE | 2019-09-02 06:00 | NUR ---
SHIFT SUMMARY PT HAS HAD NO ACUTE CHANGES THIS SHIFT, NO C/O OF ANY KIND, HAS REFUSED REPOS SEVERAL TIMES THIS SHIFT EVEN WHEN EDUCATED ON PURPOSE OF REPOS, PT SLEEPING AT THIS TIME, CALL LIGHT IN REACH, WILL CONT TO MONITOR UNTIL REPORT GIVEN TO DAY RN.
--- NOTE | 2019-09-02 13:53 | NUR ---
DISCHARGE NOTE PT IS A RESIDENT OF [facility]. PT DISCHARGED TO [facility]. POWERGLCHANCE PLACED THIS SHIFT FOR IV ANTIBIOTICS AT [facility]. PT HAS A CRONIC CLEARY THAT WAS EMPTIED JUST PRIOR TO DISCHARGE. PT HAS AN OSTOMY THAT WAS EMPTIED THIS SHIFT. PT BEDBOUND AT BASELINE. PT TRANSPORTED TO [facility] VIA [facility] BY [facility]. REPORT CALLED TO HENRRY AT [facility].
[2019-09-02] MEDS ORDERED: Tazicef1 G1 IV (14:13)
== END 2019-09-02 13:53 | DRG 698 ==
LOC: ER 16:52 → ICUW 20:09 → ICUE 20:56 → MEDS 08-31 18:16 → ENPENDDIS 09-02 13:32 → MEDS 09-02 13:53
PROVIDERS: Emergency Medicine; Hospitalist; Nurse Practitioner Acute Care; ADMIT Internal Medicine
DX: T83.511A Infection and inflammatory reaction due to indwelling urethral catheter, initial encounter (principal); A41.52 Sepsis due to Pseudomonas; R65.20 Severe sepsis without septic shock; N39.0 Urinary tract infection, site not specified; L89.102 Pressure ulcer of unspecified part of back, stage 2; G35 Multiple sclerosis; F03.90 Unspecified dementia, unspecified severity, without behavioral disturbance, psychotic disturbance, mood disturbance, and anxiety; Z66 Do not resuscitate; F41.9 Anxiety disorder, unspecified; F32.9 Major depressive disorder, single episode, unspecified; Z86.718 Personal history of other venous thrombosis and embolism; Z79.01 Long term (current) use of anticoagulants
CPT/HCPCS: 36415; 71045; 74176; 80048; 80053; 83605; 83735; 85025; 87040; 87077; 87186; 93005; 93010; 96361; 96365; 99285-25; A9270; J0696; J0713; J1885; J2185; J2543; J3370; J7030; J7040; J7050

== ENCOUNTER → 2020-02-05 | Outpatient (CLI) | payer OTHER ==
[~2020-02-05] MED LIST changes: +BISA10S PR; +ELIQUIS2.5 MG PO; +LACT PO; +MIRALAX17 GM PO; +Midodrine HCl2.5 MG PO; +ONDA8 PO; +POTCIT10 PO
[2020-02-05 17:58] LABS: Source, Urine Catheter
[2020-02-05 20:02] LABS: Appearance, Urine Cloudy (Clear); Bilirubin, Urine Neg (Neg); Blood, Urine 5+ (Neg); Color, Urine Yellow (P-Yellow); Glucose Qualitative, Urine Neg (Neg); Ketones, Urine Neg (Neg); Leukocyte Esterase, Urine 3+ (Neg); Nitrite, Urine Pos (Neg); Protein, Urine 2+ (Neg); Specific Gravity, Urine 1.025 (1.003-1.022); Urobilinogen, Urine NORM (Normal)
[2020-02-05 20:20] LABS: Amorphous Heavy (0-Heavy); Bacteria Many /hpf; Squamous Epithelial Cells Not Seen /hpf (Few); White Blood Cells, Urine TNTC /hpf (0-5)
== END | disposition home or self-care (01) ==
LOC: EDSTATUS 14:43 → LAB RH 17:57
PROVIDERS: Internal Medicine
DX: N39.0 Urinary tract infection, site not specified (principal); A41.89 Other specified sepsis
CPT/HCPCS: 81001; 87077; 87086; 87186

== ENCOUNTER → 2020-02-22 | Outpatient (CLI) | payer OTHER ==
[~2020-02-22] MED LIST changes: +AMOCLA875 PO
[2020-02-22 16:24] LABS: Source, Urine Catheter
[2020-02-22 16:27] LABS: Appearance, Urine Cloudy (Clear); Bilirubin, Urine Neg (Neg); Blood, Urine 5+ (Neg); Color, Urine Yellow (P-Yellow); Glucose Qualitative, Urine Neg (Neg); Ketones, Urine 1+ (Neg); Leukocyte Esterase, Urine 3+ (Neg); Nitrite, Urine Pos (Neg); Protein, Urine 3+ (Neg); Urobilinogen, Urine NORM (Normal)
[2020-02-22 16:34] LABS: Bacteria Many /hpf; Red Blood Cells, Urine 50-100 /hpf (0-2); Squamous Epithelial Cells Not Seen /hpf (Few); White Blood Cells, Urine 50-100 /hpf (0-5)
[2020-02-22 16:35] LABS: Calcium Oxalate Crystals Few /hpf
== END | disposition home or self-care (01) ==
LOC: LAB RH 16:22
PROVIDERS: Internal Medicine
DX: N39.0 Urinary tract infection, site not specified (principal)
CPT/HCPCS: 81001; 87086

== ENCOUNTER 2020-04-10 09:30 | Inpatient (IN) | payer OTHER ==
[~2020-04-10] VITALS: Ht 198.1 cm; Wt 136.1 kg
[~2020-04-10 09:30] MED LIST changes: -AMOCLA875 PO
[2020-04-10 09:46] LABS: Source, Urine Catheter
[2020-04-10 09:51] LABS: BASOPHILS ABSOLUTE AUTO 0.08 K/mm3 (0.00-0.23); BASOPHILS PERCENT AUTO 1 % (0-2); EOSINOPHILS ABSOLUTE AUTO 0.13 K/mm3 (0.00-0.68); EOSINOPHILS PERCENT AUTO 1 % (0-6); Hematocrit 50.1 % (37.0-53.0); Hemoglobin 15.1 g/dL (13.5-17.5); IMMATURE GRAN PERCENT AUTO 1 % (0-1); LYMPHOCYTES ABSOLUTE AUTO 1.23 K/mm3 (0.84-5.20); LYMPHOCYTES PERCENT AUTO 7 % (21-46); MONOCYTES ABSOLUTE AUTO 2.28 K/mm3 (0.16-1.47); MONOCYTES PERCENT AUTO 13 % (4-13); Mean Corpuscular HGB 24.4 pg (26.0-34.0); Mean Corpuscular HGB Conc 30.1 g/dL (31.5-36.5); Mean Corpuscular Volume 81 fL (80-100); Mean Platelet Volume 8.9 fL (9.1-12.4); NEUTROPHILS ABSOLUTE AUTO 13.42 K/mm3 (1.96-9.15); NEUTROPHILS PERCENT AUTO 78 % (41-73); Platelet Count 292 K/mm3 (150-400); RDW Standard Deviation 49.1 fL (35.1-46.3); White Blood Cell Count 17.24 K/mm3 (4.00-11.30)
[2020-04-10] MEDS ORDERED: LACT PO (09:51)
[2020-04-10 09:56] LABS: Bilirubin, Urine Neg (Neg); Blood, Urine 5+ (Neg); Glucose Qualitative, Urine Neg (Neg); Ketones, Urine 1+ (Neg); Leukocyte Esterase, Urine 3+ (Neg); Nitrite, Urine Pos (Neg); Protein, Urine 3+ (Neg); Urobilinogen, Urine NORM (Normal)
[2020-04-10 10:05] LABS: Appearance, Urine Cloudy (Clear); Color, Urine Yellow (P-Yellow)
[2020-04-10 10:07] LABS: Bacteria Many /hpf; Red Blood Cells, Urine 25-50 /hpf (0-2); Squamous Epithelial Cells Rare /hpf (Few); White Blood Cells, Urine TNTC /hpf (0-5)
[2020-04-10 10:08] LABS: Amorphous Light (0-Heavy)
[2020-04-10 10:21] LABS: Alanine Aminotransfer (ALT/SGP 30 U/L (12-78); Albumin, Blood 3.3 g/dL (3.4-5.0); Albumin/Globulin Ratio 0.7 (0.8-1.8); Alk Phos 85 U/L (50-136); Anion Gap 5 mmol/L (6-16); Aspartate Aminotrans (AST/SGOT 23 U/L (12-37); Bilirubin, Total 1.1 mg/dL (0.1-1.0); Blood Urea Nitrogen 11 mg/dL (8-24); Bun/Creatinine Ratio 12.4 (12.0-20.0); CO2, Blood 28 mmol/L (21-32); Calcium, Blood 9.1 mg/dL (8.5-10.1); Chloride, Blood 103 mmol/L (98-108); Creatinine, Blood 0.89 mg/dL (0.60-1.20); Globulin, Blood 4.9 g/dL (2.2-4.0); Glomerular Filtration Rate >60 (60-); Glucose, Blood 107 mg/dL (70-99); Potassium, Blood 4.3 mmol/L (3.5-5.5); Sodium, Blood 136 mmol/L (136-145); Total Protein, Blood 8.2 g/dL (6.4-8.2)
[2020-04-11 03:54] LABS: BASOPHILS ABSOLUTE AUTO 0.06 K/mm3 (0.00-0.23); BASOPHILS PERCENT AUTO 0 % (0-2); EOSINOPHILS ABSOLUTE AUTO 0.16 K/mm3 (0.00-0.68); EOSINOPHILS PERCENT AUTO 1 % (0-6); Hematocrit 43.9 % (37.0-53.0); Hemoglobin 12.9 g/dL (13.5-17.5); IMMATURE GRAN ABSOLUTE AUTO 0.05 K/mm3 (0.00-0.10); IMMATURE GRAN PERCENT AUTO 0 % (0-1); LYMPHOCYTES ABSOLUTE AUTO 1.18 K/mm3 (0.84-5.20); LYMPHOCYTES PERCENT AUTO 8 % (21-46); MONOCYTES ABSOLUTE AUTO 2.83 K/mm3 (0.16-1.47); MONOCYTES PERCENT AUTO 20 % (4-13); Mean Corpuscular HGB 23.5 pg (26.0-34.0); Mean Corpuscular HGB Conc 29.4 g/dL (31.5-36.5); Mean Corpuscular Volume 80 fL (80-100); NEUTROPHILS ABSOLUTE AUTO 10.15 K/mm3 (1.96-9.15); NEUTROPHILS PERCENT AUTO 70 % (41-73); Platelet Count 232 K/mm3 (150-400); RDW Coefficient Variation 16.8 % (11.7-14.2); RDW Standard Deviation 49.1 fL (35.1-46.3); Red Blood Cell Count 5.49 M/mm3 (4.30-5.90); White Blood Cell Count 14.43 K/mm3 (4.00-11.30)
[2020-04-11 04:14] LABS: Alanine Aminotransfer (ALT/SGP 24 U/L (12-78); Albumin, Blood 2.5 g/dL (3.4-5.0); Albumin/Globulin Ratio 0.6 (0.8-1.8); Alk Phos 71 U/L (50-136); Anion Gap 6 mmol/L (6-16); Aspartate Aminotrans (AST/SGOT 16 U/L (12-37); Bilirubin, Total 0.7 mg/dL (0.1-1.0); Blood Urea Nitrogen 10 mg/dL (8-24); Bun/Creatinine Ratio 13.4 (12.0-20.0); CO2, Blood 27 mmol/L (21-32); Calcium, Blood 8.5 mg/dL (8.5-10.1); Chloride, Blood 107 mmol/L (98-108); Creatinine, Blood 0.75 mg/dL (0.60-1.20); Globulin, Blood 4.5 g/dL (2.2-4.0); Glomerular Filtration Rate >60 (60-); Glucose, Blood 103 mg/dL (70-99); Potassium, Blood 4.1 mmol/L (3.5-5.5); Sodium, Blood 140 mmol/L (136-145)
--- NOTE | 2020-04-11 05:11 | NUR ---
SHIFT SUMMARY PT A&O; MAKES NEEDS KNOWN; VERY PARTICULAR W/ CARE; VSS; DENIES CHEST PAIN; O2 SATS >93 ON RA; CLEARY PATENT & DRAINING DK.HARI URINE; OSTOMY DRAINING BROWN LIQUID; MEDS WHOLE IN APPLESAUCE W/ NO ISSUE; Q2 TURNS PROVIDED; ORAL CARE PROVIDED; CALL LIGHT IN REACH; BED IN LOWEST POSITION; WILL CONTINUE TO MONITOR CLOSELY UNTIL HAND OFF TO DAY SHIFT RN.
--- NOTE | 2020-04-11 14:26 | NUR ---
ARRIVES FROM PCU ABOUT 1340. RT.LEG, LT. LEG AND LT ARM NO RESPONSE. HX OF M.S. LUNGS DIM T/O. ILEOSTOMY DRAINING LIQUID MED BROWN COLOR FECES. CLEARY IN PLACE TO GRAVITY. BILATERAL FOOT DROP WITH PILLOW TYPE HEEL GUARDS FROM HOME. PETECHIAE BILATERAL LE FROM KNEES DOWN. BLANCHES. PATIENT SLOW TO RESPOND. LOOKS LIKE OLD PRESSURE ULCER BUTTOCK W/NEW MEPILEX APPLIED. ABRASION RT POSTERIOR THIGH. PICTURES TAKEN ; REESE LEGS AND BUTTOCK AND ABRASION. PUPILS SLUGGISH. TELE SR. ON R.A.TAKES MEDS WHOLE IN APPLESAUCE. IV LT HAND WITH LR INFUSING AT 100ML/HR. EDEMA LT ARM/HAND. GROSS JERKING MOVEMENTS RT ARM. PER WINDING OPERATOR AWARE OF POSITIOVE BLD CULTURES. TM
--- NOTE | 2020-04-12 04:47 | NUR ---
REGISTERED NURSE MIDWIFE SUMMARY PT A/O X4. MS AT BASELINE. GROSS MOVEMENT IN THE RIGHT ARM. NO MOVEMENTS IN BLE. LEFT ARM IS VERY WEAK AND PT BARELY ABLE TO MOVE IT. CLEARY PATENT AND TO GRAVITY. ILEOSTOMY DRAINING BROWN BM'S. PT DENIES PAIN, SOB. ROOM AIR. TELE SR IN THE 70'S TO 80'S PER LABORER [employer]. VSS. REPOSITIONING Q2. BILATERAL HEELS FLOATED ON PT'S HOME FEET FLOATERS. NO ACUTE CHANGES. CALL LIGHT WITHIN REACH.
[2020-04-12 05:01] LABS: BASOPHILS ABSOLUTE AUTO 0.04 K/mm3 (0.00-0.23); BASOPHILS PERCENT AUTO 0 % (0-2); EOSINOPHILS ABSOLUTE AUTO 0.54 K/mm3 (0.00-0.68); EOSINOPHILS PERCENT AUTO 6 % (0-6); Hematocrit 38.1 % (37.0-53.0); Hemoglobin 11.2 g/dL (13.5-17.5); IMMATURE GRAN ABSOLUTE AUTO 0.03 K/mm3 (0.00-0.10); IMMATURE GRAN PERCENT AUTO 0 % (0-1); LYMPHOCYTES ABSOLUTE AUTO 0.79 K/mm3 (0.84-5.20); LYMPHOCYTES PERCENT AUTO 9 % (21-46); MONOCYTES ABSOLUTE AUTO 1.32 K/mm3 (0.16-1.47); MONOCYTES PERCENT AUTO 14 % (4-13); Mean Corpuscular HGB 23.9 pg (26.0-34.0); Mean Corpuscular HGB Conc 29.4 g/dL (31.5-36.5); Mean Corpuscular Volume 81 fL (80-100); Mean Platelet Volume 9.1 fL (9.1-12.4); NEUTROPHILS ABSOLUTE AUTO 6.52 K/mm3 (1.96-9.15); NEUTROPHILS PERCENT AUTO 71 % (41-73); Platelet Count 232 K/mm3 (150-400); Red Blood Cell Count 4.69 M/mm3 (4.30-5.90); White Blood Cell Count 9.24 K/mm3 (4.00-11.30)
[2020-04-12 05:17] LABS: Anion Gap 6 mmol/L (6-16); Blood Urea Nitrogen 15 mg/dL (8-24); Bun/Creatinine Ratio 21.6 (12.0-20.0); CO2, Blood 27 mmol/L (21-32); Calcium, Blood 8.2 mg/dL (8.5-10.1); Chloride, Blood 108 mmol/L (98-108); Glomerular Filtration Rate >60 (60-); Glucose, Blood 105 mg/dL (70-99); Potassium, Blood 3.8 mmol/L (3.5-5.5); Sodium, Blood 141 mmol/L (136-145)
--- NOTE | 2020-04-12 08:48 | NUR ---
CLEARY CATHETER: PT REFUSING TO HAVE CLEARY CATHETER CHANGED. HAS NOT BEEN CHANGED SINCE ARRIVING TO HOSPITAL. THIS RN, PT'S RN SHEMAR, AND DR. ENGLISH ALL EXPLAINED THE IMPORTANCE OF HAVING CATHETER CHANGED AND THE HOSPITAL POLICY TO CHANGE CHRONIC CATHETERS ON ADMISSION. PT STATES HE UNDERSTANDS BUT THAT HE'S "HAD ENOUGH TRAUMA" IN HIS LIFE.
[2020-04-12 13:18] LABS: Source, Urine Catheter
[2020-04-12 13:31] LABS: Appearance, Urine Hazy (Clear); Bilirubin, Urine Neg (Neg); Blood, Urine 5+ (Neg); Color, Urine Yellow (P-Yellow); Glucose Qualitative, Urine Neg (Neg); Ketones, Urine Neg (Neg); Leukocyte Esterase, Urine 3+ (Neg); Nitrite, Urine Pos (Neg); Protein, Urine 2+ (Neg); Specific Gravity, Urine 1.015 (1.003-1.022); Urobilinogen, Urine NORM (Normal)
--- NOTE | 2020-04-12 13:32 | NUR ---
HE HAS RECEIVED TYLENOL FOR A H/A. HE SWALLOWS PILLS WELL WHOLE IN APPLESAUCE. HE IS A FEEDER AT MEAL TIME. HE EATS WELL. NEW URINE SPECIMAN SENT TO LAB. HE HAS REFUSED FOR US TO CHANGE HIS CATHETER. AWARE AND HAS GIVEN OKAY NOT TO FORCE IT ON HIM. IT WAS JUST CHANGED ON 04/08 AT [facility] WHERE HE LIVES. WE HAVE BURPED HIS ILEOSTOMY BAG AND EMPTIED IT THIS AM. FLANGE HAS TAPE AROUND IT'S BORDERS. NO LEAKING. IT IS COMPLETELY DRY AND INTACT.
[2020-04-12 14:24] LABS: Red Blood Cells, Urine 50-100 /hpf (0-2); White Blood Cells, Urine 50-100 /hpf (0-5)
[2020-04-12 14:25] LABS: Bacteria Many /hpf; Squamous Epithelial Cells Few /hpf (Few)
[2020-04-12 14:27] LABS: Granular Casts 0-2 /lpf (0); Mucus Light (0-Heavy)
--- NOTE | 2020-04-12 17:47 | NUR ---
HE HAS HAD AN OK DAY. WE PUT A LIFT SHEET UNDER HIM WHICH WORKS BETTER FOR TURNING HIM. NO SKIN CHANGES. FOAM DRESSING INTACT. SEE PHOTOS. HEEL BOOTIES IN PLACE. FOOT DROP BILATERALLY IS DRAMATIC. NO FEVER. IVF'S DC'D. PLAN DC TOMORROW BACK TO [facility]. COVID SWAB ORDERED. HE HAS HAD BOTH VACCINATION SHOTS BUT PROTOCOL STILL SAYS TO SWAB HIM. CONTACT ISOLATION IN PLACE FOR ESBL.
[2020-04-12 19:25] LABS: Influenza A, PCR NEGATIVE (NEGATIVE); Influenza B, PCR NEGATIVE (NEGATIVE); Resp Syncytial Virus, PCR NEGATIVE (NEGATIVE); SARS-Cov-2 (COVID-19) PCR, MMC NEGATIVE (NEGATIVE)
[2020-04-13 05:30] LABS: Hematocrit 37.9 % (37.0-53.0); Hemoglobin 10.9 g/dL (13.5-17.5); Mean Corpuscular HGB 23.4 pg (26.0-34.0); Mean Corpuscular HGB Conc 28.8 g/dL (31.5-36.5); Mean Corpuscular Volume 81 fL (80-100); Mean Platelet Volume 9.5 fL (9.1-12.4); Platelet Count 263 K/mm3 (150-400); RDW Coefficient Variation 16.7 % (11.7-14.2); RDW Standard Deviation 49.6 fL (35.1-46.3); Red Blood Cell Count 4.66 M/mm3 (4.30-5.90)
--- NOTE | 2020-04-13 05:35 | NUR ---
SHIFT SUMMARY: VSS. AFEB. AAOX4. SLOW TO RESPOND. 02 92-93% ON RA. LS DIM. F/C PATENT AND DRAINING YELLOW, CLOUDY APPEARING URINE. IV ABT INFUSED PER ORDERS. ILEOSTOMY PRODUCING MOD TO LARGE AMTS OF STOOL AND FLATUS. MED X 1 FOR HEADACHE. NO ACUTE OVERNIGHT EVENTS. WCTM.
[2020-04-13 05:46] LABS: Anion Gap 3 mmol/L (6-16); Blood Urea Nitrogen 14 mg/dL (8-24); Bun/Creatinine Ratio 19.8 (12.0-20.0); CO2, Blood 28 mmol/L (21-32); Calcium, Blood 8.2 mg/dL (8.5-10.1); Chloride, Blood 108 mmol/L (98-108); Creatinine, Blood 0.71 mg/dL (0.60-1.20); Glomerular Filtration Rate >60 (60-); Glucose, Blood 95 mg/dL (70-99); Potassium, Blood 3.9 mmol/L (3.5-5.5); Sodium, Blood 139 mmol/L (136-145)
[2020-04-13] MEDS ORDERED: Tazicef1 G1 IV (12:44)
--- NOTE | 2020-04-13 17:34 | NUR ---
DISCHARGED TO [facility] BY AMBULANCE AT 1630. HE HAS HIS BOOTS ON AND HIS POCKET LEIJA. PACKET SENT WITH HIM AND REPORT CALLED TO REJI RN. NO COMPLAINTS TODAY. URINE IS CLOUDY YELLOW. ILEOSTOMY DRAINS WELL. HE REFUSED A BATH. HE REFUSED HIS SHIRT REMOVED. HE EATS AND DRINKS WELL. HE NEEDS TO BE FED. HE HAS BEEN PLEASANT AND MOSTLY COOPERATIVE.
== END 2020-04-13 16:30 | disposition home or self-care (01) | DRG 698 ==
LOC: ER 09:30 → PCU 12:04 → MEDS 04-11 13:10
PROVIDERS: Emergency Medicine; Family Medicine; Nurse Practitioner Acute Care; Student in an Organized Health Care Education/Training Program; ADMIT Internal Medicine
DX: T83.511A Infection and inflammatory reaction due to indwelling urethral catheter, initial encounter (principal); A41.52 Sepsis due to Pseudomonas; J98.11 Atelectasis; N39.0 Urinary tract infection, site not specified; Z79.01 Long term (current) use of anticoagulants; G35 Multiple sclerosis; N31.9 Neuromuscular dysfunction of bladder, unspecified; Z87.891 Personal history of nicotine dependence; Z66 Do not resuscitate; E66.01 Morbid (severe) obesity due to excess calories; Z68.34 Body mass index [BMI] 34.0-34.9, adult; Z93.2 Ileostomy status; F32.9 Major depressive disorder, single episode, unspecified; F41.9 Anxiety disorder, unspecified; L89.322 Pressure ulcer of left buttock, stage 2; L89.312 Pressure ulcer of right buttock, stage 2
CPT/HCPCS: 0241U; 36415; 71045; 80048; 80053; 81001; 83605; 83735; 85025; 85027; 87040; 87077; 87086; 87186; 96365; 96366; 96367; 99285-25; A9270; C1751; J0692; J0696; J2310; J7030; J7050; J7120

== ENCOUNTER 2020-08-09 11:10 | Emergency (ER) | payer OTHER ==
[~2020-08-09] VITALS: Ht 198.1 cm; Wt 113.4 kg
[2020-08-09 12:08] LABS: Alanine Aminotransfer (ALT/SGP 22 U/L (12-78); Albumin, Blood 3.2 g/dL (3.4-5.0); Albumin/Globulin Ratio 0.7 (0.8-1.8); Alk Phos 77 U/L (50-136); Anion Gap 6 mmol/L (6-16); Aspartate Aminotrans (AST/SGOT 14 U/L (12-37); Bilirubin, Total 0.4 mg/dL (0.1-1.0); Blood Urea Nitrogen 13 mg/dL (8-24); Bun/Creatinine Ratio 16.2 (12.0-20.0); CO2, Blood 30 mmol/L (21-32); Calcium, Blood 8.8 mg/dL (8.5-10.1); Chloride, Blood 100 mmol/L (98-108); Globulin, Blood 4.9 g/dL (2.2-4.0); Glomerular Filtration Rate >60 (60-); Glucose, Blood 120 mg/dL (70-99); Sodium, Blood 136 mmol/L (136-145); Total Protein, Blood 8.1 g/dL (6.4-8.2); Troponin I <0.015 ng/mL (0.000-0.040)
[2020-08-09 12:19] LABS: BASOPHILS ABSOLUTE AUTO 0.03 K/mm3 (0.00-0.23); BASOPHILS PERCENT AUTO 0 % (0-2); EOSINOPHILS ABSOLUTE AUTO 0.05 K/mm3 (0.00-0.68); EOSINOPHILS PERCENT AUTO 0 % (0-6); Hematocrit 45.3 % (37.0-53.0); Hemoglobin 13.8 g/dL (13.5-17.5); IMMATURE GRAN ABSOLUTE AUTO 0.06 K/mm3 (0.00-0.10); IMMATURE GRAN PERCENT AUTO 0 % (0-1); LYMPHOCYTES ABSOLUTE AUTO 0.62 K/mm3 (0.84-5.20); LYMPHOCYTES PERCENT AUTO 4 % (21-46); MONOCYTES ABSOLUTE AUTO 0.76 K/mm3 (0.16-1.47); MONOCYTES PERCENT AUTO 5 % (4-13); Mean Corpuscular HGB 24.4 pg (26.0-34.0); Mean Corpuscular HGB Conc 30.5 g/dL (31.5-36.5); Mean Corpuscular Volume 80 fL (80-100); Mean Platelet Volume 9.3 fL (9.1-12.4); NEUTROPHILS ABSOLUTE AUTO 13.16 K/mm3 (1.96-9.15); NEUTROPHILS PERCENT AUTO 90 % (41-73); Platelet Count 306 K/mm3 (150-400); RDW Standard Deviation 48.5 fL (35.1-46.3); Red Blood Cell Count 5.65 M/mm3 (4.30-5.90); White Blood Cell Count 14.68 K/mm3 (4.00-11.30)
[2020-08-10] MEDS ORDERED: DULO30 PO (12:56)
[2020-08-10] MEDS ORDERED: GUAI600T33 PO (12:56)
[2020-08-10] MEDS ORDERED: Midodrine HCl2.5 MG PO (12:57)
[2020-08-10] MEDS ORDERED: ELIQUIS5 MG PO (12:58)
[2020-08-10] MEDS ORDERED: METO10 PO (12:58)
[2020-08-10] MEDS ORDERED: Naltrexone HCl50 MG PO (12:58)
[2020-08-10] MEDS ORDERED: CLON.5 PO (12:59)
[2020-08-10] MEDS ORDERED: FAMO40 PO (12:59)
[2020-08-10] MEDS ORDERED: POTCIT10 PO (12:59)
[2020-08-10] MEDS ORDERED: LACT PO (12:59)
[2020-08-10] MEDS ORDERED: GABA300 PO (13:00)
== END 2020-08-09 16:00 | disposition home or self-care (01) ==
LOC: ER 11:10
PROVIDERS: Emergency Medicine
DX: R07.9 Chest pain, unspecified (principal); K21.9 Gastro-esophageal reflux disease without esophagitis; Z88.2 Allergy status to sulfonamides; Z88.5 Allergy status to narcotic agent; Z88.8 Allergy status to other drugs, medicaments and biological substances; Z79.01 Long term (current) use of anticoagulants; Z87.891 Personal history of nicotine dependence
CPT/HCPCS: 71045; 80053; 83690; 84484; 85025; 93005; 93010; 96374; 99285-25; J2405

== ENCOUNTER 2020-08-10 12:10 | Inpatient (IN) | payer OTHER ==
[~2020-08-10] VITALS: Ht 198.1 cm; Wt 113.4 kg
[2020-08-10] MEDS ORDERED: GUAI600T33 PO (12:56)
[2020-08-10] MEDS ORDERED: DULO30 PO (12:56)
[2020-08-10] MEDS ORDERED: Midodrine HCl2.5 MG PO (12:57)
[2020-08-10] MEDS ORDERED: Naltrexone HCl50 MG PO (12:58)
[2020-08-10] MEDS ORDERED: METO10 PO (12:58)
[2020-08-10] MEDS ORDERED: ELIQUIS5 MG PO (12:58)
[2020-08-10] MEDS ORDERED: LACT PO (12:59)
[2020-08-10] MEDS ORDERED: CLON.5 PO (12:59)
[2020-08-10] MEDS ORDERED: FAMO40 PO (12:59)
[2020-08-10] MEDS ORDERED: POTCIT10 PO (12:59)
[2020-08-10] MEDS ORDERED: GABA300 PO (13:00)
[2020-08-10 13:30] LABS: BASOPHILS ABSOLUTE AUTO 0.03 K/mm3 (0.00-0.23); BASOPHILS PERCENT AUTO 0 % (0-2); EOSINOPHILS PERCENT AUTO 0 % (0-6); Hematocrit 47.5 % (37.0-53.0); Hemoglobin 14.6 g/dL (13.5-17.5); IMMATURE GRAN ABSOLUTE AUTO 0.14 K/mm3 (0.00-0.10); IMMATURE GRAN PERCENT AUTO 1 % (0-1); LYMPHOCYTES ABSOLUTE AUTO 0.57 K/mm3 (0.84-5.20); LYMPHOCYTES PERCENT AUTO 2 % (21-46); MONOCYTES ABSOLUTE AUTO 2.25 K/mm3 (0.16-1.47); MONOCYTES PERCENT AUTO 9 % (4-13); Mean Corpuscular HGB 24.3 pg (26.0-34.0); Mean Corpuscular HGB Conc 30.7 g/dL (31.5-36.5); Mean Corpuscular Volume 79 fL (80-100); Mean Platelet Volume 9.2 fL (9.1-12.4); NEUTROPHILS ABSOLUTE AUTO 21.85 K/mm3 (1.96-9.15); NEUTROPHILS PERCENT AUTO 88 % (41-73); Platelet Count 373 K/mm3 (150-400); RDW Standard Deviation 47.6 fL (35.1-46.3); Red Blood Cell Count 6.01 M/mm3 (4.30-5.90); White Blood Cell Count 24.84 K/mm3 (4.00-11.30)
[2020-08-10 13:50] LABS: Alanine Aminotransfer (ALT/SGP 26 U/L (12-78); Albumin, Blood 2.8 g/dL (3.4-5.0); Albumin/Globulin Ratio 0.5 (0.8-1.8); Alk Phos 76 U/L (50-136); Anion Gap 4 mmol/L (6-16); Aspartate Aminotrans (AST/SGOT 18 U/L (12-37); Bilirubin, Total 0.8 mg/dL (0.1-1.0); Blood Urea Nitrogen 14 mg/dL (8-24); CO2, Blood 33 mmol/L (21-32); Calcium, Blood 9.2 mg/dL (8.5-10.1); Chloride, Blood 99 mmol/L (98-108); Creatinine, Blood 0.74 mg/dL (0.60-1.20); Globulin, Blood 5.1 g/dL (2.2-4.0); Glomerular Filtration Rate >60 (60-); Glucose, Blood 143 mg/dL (70-99); Potassium, Blood 3.8 mmol/L (3.5-5.5); Sodium, Blood 136 mmol/L (136-145); Total Protein, Blood 7.9 g/dL (6.4-8.2)
[2020-08-10 14:01] LABS: BASOPHILS PERCENT MAN 0 % (0-2); EOSINOPHILS PERCENT MAN 0 % (0-6); LYMPHOCYTES ABSOLUTE MAN 0.99 K/mm3 (0.84-5.20); LYMPHOCYTES PERCENT MAN 4 % (21-46); MONOCYTES ABSOLUTE MAN 0.99 K/mm3 (0.16-1.47); MONOCYTES PERCENT MAN 4 % (4-13); NEUTROPHILS ABSOLUTE MAN 22.85 K/mm3 (1.96-9.15); SEG NEUTROPHILS PERCENT MAN 92 % (41-73); TOTAL CELLS COUNTED 100
[2020-08-10 21:23] LABS: Source, Urine Catheter
[2020-08-10 21:25] LABS: Appearance, Urine Hazy (Clear); Bilirubin, Urine Neg (Neg); Blood, Urine 5+ (Neg); Color, Urine Yellow (P-Yellow); Glucose Qualitative, Urine Neg (Neg); Ketones, Urine 1+ (Neg); Leukocyte Esterase, Urine 3+ (Neg); Nitrite, Urine Pos (Neg); Protein, Urine 2+ (Neg); Urobilinogen, Urine NORM (Normal); pH, Urine 6.5 (5.0-8.0)
--- NOTE | 2020-08-10 21:30 | NUR ---
PT NEW ADMIT FROM ER FROM [facility] FOR ASP PNEUMONIA AND ACUTE MAN. PT VERY VAZ RE: REPLACING NEW CLEARY TO SEND UA. ATTEMPTED TO EDUCATED AND PT CONTINUED TO REFUSE. PT STATED IT WAS JUST CHANGED TODAY AT [facility] DID CASH POSTING SPECIALIST CLEARY BAG AND PLACE STAT LOCK. AFTER URINE DRAINED INTO NEW BAG, URINE WAS COLLECTED AND SENT. PT DID AGREE TO PLACING NG TUBE. PLACED 14F DOWN RIGHT NARE AND GOT BACK 600ML OF VERY DARK MUDDING APPEARING DRAINAGE. PT HAS STAGE 2 COCCYX PRESSURE WOUND, PHOTO TAKEN AND PLACED MEPILEX. REMOVED REESE LE DRESSING, CLEANED AND PHOTOS TAKEN, NO ACTIVE DRAINAGE, SO REMAINS OPEN TO AIR AT THIS TIME.
[2020-08-10 21:31] LABS: Bacteria Many /hpf; Mucus Light (0-Heavy); Red Blood Cells, Urine 0-2 /hpf (0-2); Squamous Epithelial Cells Not Seen /hpf (Few); White Blood Cells, Urine TNTC /hpf (0-5)
--- NOTE | 2020-08-11 02:25 | NUR ---
TX TO MED SCU REPORT GIVEN TO Slade BOUDREAUX RN USING SBAR.
--- NOTE | 2020-08-11 02:50 | NUR ---
TX TO ROOM 348 PERSONAL BELONGINGS GATHERED WITH CHART AND TAKEN WITH PT TO ROOM 348. TOLERATED WELL. Slade BOUDREAUX RN TOOK OVER CARE AT THIS TIME.
--- NOTE | 2020-08-11 03:08 | NUR ---
TRANSFER NOTE HANDOFF RECEIVED FROM SURGICAL NURSE STEW. PT TRANSFERED TO FLOOR VIA GURNEY. LOW INTERMITTENT SUCTION HOOKED TO THE NG TUBE. 2 LPM O2 VIA NC. PERSONAL POSSESSIONS WITH PT.
[2020-08-11 06:06] LABS: BASOPHILS ABSOLUTE AUTO 0.06 K/mm3 (0.00-0.23); BASOPHILS PERCENT AUTO 0 % (0-2); EOSINOPHILS ABSOLUTE AUTO 0.17 K/mm3 (0.00-0.68); EOSINOPHILS PERCENT AUTO 1 % (0-6); Hematocrit 43.4 % (37.0-53.0); Hemoglobin 13.3 g/dL (13.5-17.5); IMMATURE GRAN PERCENT AUTO 1 % (0-1); LYMPHOCYTES ABSOLUTE AUTO 1.09 K/mm3 (0.84-5.20); LYMPHOCYTES PERCENT AUTO 5 % (21-46); MONOCYTES ABSOLUTE AUTO 2.18 K/mm3 (0.16-1.47); MONOCYTES PERCENT AUTO 10 % (4-13); Mean Corpuscular HGB 24.7 pg (26.0-34.0); Mean Corpuscular HGB Conc 30.6 g/dL (31.5-36.5); Mean Corpuscular Volume 81 fL (80-100); Mean Platelet Volume 9.3 fL (9.1-12.4); NEUTROPHILS ABSOLUTE AUTO 17.34 K/mm3 (1.96-9.15); NEUTROPHILS PERCENT AUTO 83 % (41-73); Platelet Count 303 K/mm3 (150-400); RDW Coefficient Variation 16.8 % (11.7-14.2); Red Blood Cell Count 5.38 M/mm3 (4.30-5.90); White Blood Cell Count 20.94 K/mm3 (4.00-11.30)
[2020-08-11 06:39] LABS: Alanine Aminotransfer (ALT/SGP 24 U/L (12-78); Albumin, Blood 2.5 g/dL (3.4-5.0); Albumin/Globulin Ratio 0.5 (0.8-1.8); Alk Phos 68 U/L (50-136); Anion Gap 3 mmol/L (6-16); Aspartate Aminotrans (AST/SGOT 17 U/L (12-37); Bilirubin, Total 0.8 mg/dL (0.1-1.0); Blood Urea Nitrogen 21 mg/dL (8-24); Bun/Creatinine Ratio 27.5 (12.0-20.0); CO2, Blood 34 mmol/L (21-32); Calcium, Blood 8.7 mg/dL (8.5-10.1); Chloride, Blood 102 mmol/L (98-108); Creatinine, Blood 0.76 mg/dL (0.60-1.20); Globulin, Blood 4.6 g/dL (2.2-4.0); Glomerular Filtration Rate >60 (60-); Glucose, Blood 113 mg/dL (70-99); Potassium, Blood 3.8 mmol/L (3.5-5.5); Sodium, Blood 139 mmol/L (136-145); Total Protein, Blood 7.1 g/dL (6.4-8.2)
--- NOTE | 2020-08-11 13:57 | NUR ---
Pt resting in bed upon arrival. Pt is known to this group underwriter from previous hospital stays. Pt reports 5/10 pain in his abdomen. Mildy dyspnea and respirations sound slightly wet. Pt reports mild anxiety due to anticipation of surgery. Offered threrapeutic listening. Engaged in therapeutic discussion regarding his code status and wishes for life sustaining measures. Educated on life sustaining treatment including risk factors and implications of CPR. Pt confirms his wishes to be Full Code. Pt has POLST on file that aligns with his current wishes. Pt reports no other concerns at this time. Spoke with Primary RN Carine and discussed case. Palliative Care will remain available.
--- NOTE | 2020-08-11 14:26 | NUR ---
PT C/O DISCOMFORT OF HIS NOSE DUE TO NG TUBE; PT INFORMED THE DR AT BEDSIDE; DR ORDERED LIDOCAINE JELLY FOR THE PT NOSE; HOWEVER PT IS ALLERGY TO LIDOCAINE AND STATED CAUSING HIM TO HAVE STOMACHACHE. DR RECOMMENDED TO PUT AN ORDER PRN.
--- NOTE | 2020-08-11 17:41 | NUR ---
SHIFT SUMMARY PT ALERT AND ORIENTED. PT DID NOT HAVE A SURGERY TODAY AND WILL CONT ABX PER SURGEON. PT NG TUBE TO INT SUCTION WITH GREENISH OUPUT. PT C/O PAIN ON HIS RIGHT ABD THIS AM WHILE DR AT BEDSIDE, NO ORDERS GIVEN. THIS AFTERNOON; PT STATED PAIN IS BETTER AND NOT TOO BAD AND REFUSED PAIN MEDS. PT STILL NPO AND HELD PO MEDS. Q2 TURN AND NEEDED. PT ALSO HAS MINIMAL OUTPUT ON HIS ILEOSTOMY. BED IS IN THE LOWEST POSITION AND CALL LIGHT WITHIN REACH
--- NOTE | 2020-08-11 21:45 | NUR ---
ASSUMED CARE. RECEIVED REPORT FROM JOVANA CLANCY. PATIENT TRANSFERRED FROM ROOM 348 TO 325 VIA RNEY. AOX3, PLEASANT, SOFT SPOKEN. NGT IN PLACE, HOOKED TO LOW INTERMITENT SUCTION, SMALL AMOUNT OF BROWNISH BILE OBTAINED. NPO. IVF HOOKED BACK UP TO RIGHT HAND IV. CATHETER PATIENT AND DRAINING. DENIES PAIN OR DISCOMFORT. AGREED WITH JOVANA'S ASSESSMENT. WILL CONTINUE TO MONITOR AND TREAT. CALL LIGHT IN REACH, BED IN LOW POSITION.
[2020-08-12 05:16] LABS: BASOPHILS ABSOLUTE AUTO 0.05 K/mm3 (0.00-0.23); BASOPHILS PERCENT AUTO 0 % (0-2); EOSINOPHILS ABSOLUTE AUTO 0.84 K/mm3 (0.00-0.68); EOSINOPHILS PERCENT AUTO 6 % (0-6); Hematocrit 38.9 % (37.0-53.0); Hemoglobin 11.7 g/dL (13.5-17.5); IMMATURE GRAN ABSOLUTE AUTO 0.04 K/mm3 (0.00-0.10); IMMATURE GRAN PERCENT AUTO 0 % (0-1); LYMPHOCYTES ABSOLUTE AUTO 0.84 K/mm3 (0.84-5.20); LYMPHOCYTES PERCENT AUTO 6 % (21-46); MONOCYTES ABSOLUTE AUTO 1.29 K/mm3 (0.16-1.47); MONOCYTES PERCENT AUTO 9 % (4-13); Mean Corpuscular HGB 24.5 pg (26.0-34.0); Mean Corpuscular HGB Conc 30.1 g/dL (31.5-36.5); Mean Corpuscular Volume 82 fL (80-100); Mean Platelet Volume 9.4 fL (9.1-12.4); NEUTROPHILS ABSOLUTE AUTO 11.01 K/mm3 (1.96-9.15); NEUTROPHILS PERCENT AUTO 78 % (41-73); Platelet Count 288 K/mm3 (150-400); RDW Coefficient Variation 16.8 % (11.7-14.2); RDW Standard Deviation 50.4 fL (35.1-46.3); Red Blood Cell Count 4.77 M/mm3 (4.30-5.90); White Blood Cell Count 14.07 K/mm3 (4.00-11.30)
[2020-08-12 05:47] LABS: Anion Gap 3 mmol/L (6-16); Blood Urea Nitrogen 19 mg/dL (8-24); Bun/Creatinine Ratio 22.1 (12.0-20.0); CO2, Blood 33 mmol/L (21-32); Calcium, Blood 8.2 mg/dL (8.5-10.1); Chloride, Blood 105 mmol/L (98-108); Creatinine, Blood 0.86 mg/dL (0.60-1.20); Glomerular Filtration Rate >60 (60-); Glucose, Blood 129 mg/dL (70-99); Potassium, Blood 3.7 mmol/L (3.5-5.5); Sodium, Blood 141 mmol/L (136-145)
--- NOTE | 2020-08-12 06:42 | NUR ---
SHIFT SUMMARY: PATIENT WAS TRANSFERRED TO DC FROM ROOM 348 AROUND 2144. AOX3 COOPERATIVE, SOFT SPOKEN, SLOW TO RESPOND. NGT SUCTION TO LOW INTERMINTENT W/ 230CC OF BROWN BILE OUT. IVF INFUSING CONTINUOUS. COLOSTOMY REMAINED INTAKE WITH LITTLE OUTPUT. CATHETER PATENT AND DRAINING YELLOW URINE. ANTIBOTICS GIVEN. DENIED ANY PAIN OR DISCOMFORT. VS TACHYCARDIC THIS AM RUNNIGN AT 104 REST WERE WITH IN NORMAL LIMITS. NO OTHER CHANGES TO NOTE. CALL LIGHT IS IN REACH, BED IN LOW POSITION.
[2020-08-12 11:33] LABS: International Normalized Ratio 1.11; Prothrombin Time Results 11.9 Sec (9.7-11.5)
--- NOTE | 2020-08-12 17:22 | NUR ---
BLOOD CONSENT PATIENT GAVE VERBAL CONSENT TO RECEIVE BLOOD. FORM SIGNED BY THIS RN AND WITNESSED BY CHOCO OLSON OR-RN.
--- NOTE | 2020-08-12 17:52 | NUR ---
Spiritual care note: Mr. Cuello and I met on his previous admission. He is soft-spoken and appears tired post-op. When asked about emotional support, he states he feels well supported by family/friends. Prayer provided for continued healing at his request. Film Processor services will remain available.
--- NOTE | 2020-08-12 17:56 | NUR ---
Shift Summary A/Ox2, pleasant and cooperative with care. Bedbound at baseline, lift for transfers. Medicated for R abdominal pain per EMAR with good effect. Colostomy draining dark brown loose stools, acevedo patent and draining luz maria yellow clear urine. Bedbath completed today. On 1.5 L O2, patient reports difficulty breathing in supine position. D5 1/2NS 20mEq @ 125. Patient taken to OR for cholecystostomy tube placement. Refused some Q2 turns. WCTM.
[2020-08-13 03:54] LABS: BASOPHILS ABSOLUTE AUTO 0.03 K/mm3 (0.00-0.23); BASOPHILS PERCENT AUTO 0 % (0-2); EOSINOPHILS ABSOLUTE AUTO 0.31 K/mm3 (0.00-0.68); EOSINOPHILS PERCENT AUTO 3 % (0-6); Hematocrit 40.4 % (37.0-53.0); Hemoglobin 11.8 g/dL (13.5-17.5); IMMATURE GRAN ABSOLUTE AUTO 0.05 K/mm3 (0.00-0.10); IMMATURE GRAN PERCENT AUTO 0 % (0-1); LYMPHOCYTES ABSOLUTE AUTO 0.67 K/mm3 (0.84-5.20); LYMPHOCYTES PERCENT AUTO 5 % (21-46); MONOCYTES ABSOLUTE AUTO 0.91 K/mm3 (0.16-1.47); MONOCYTES PERCENT AUTO 7 % (4-13); Mean Corpuscular HGB 24.2 pg (26.0-34.0); Mean Corpuscular HGB Conc 29.2 g/dL (31.5-36.5); Mean Corpuscular Volume 83 fL (80-100); Mean Platelet Volume 9.3 fL (9.1-12.4); NEUTROPHILS PERCENT AUTO 84 % (41-73); Platelet Count 265 K/mm3 (150-400); RDW Coefficient Variation 16.6 % (11.7-14.2); RDW Standard Deviation 50.4 fL (35.1-46.3); Red Blood Cell Count 4.87 M/mm3 (4.30-5.90); White Blood Cell Count 12.47 K/mm3 (4.00-11.30)
[2020-08-13 04:18] LABS: Anion Gap 4 mmol/L (6-16); Blood Urea Nitrogen 16 mg/dL (8-24); Bun/Creatinine Ratio 21.3 (12.0-20.0); CO2, Blood 31 mmol/L (21-32); Calcium, Blood 8.1 mg/dL (8.5-10.1); Chloride, Blood 107 mmol/L (98-108); Creatinine, Blood 0.75 mg/dL (0.60-1.20); Glomerular Filtration Rate >60 (60-); Glucose, Blood 125 mg/dL (70-99); Potassium, Blood 3.8 mmol/L (3.5-5.5); Sodium, Blood 142 mmol/L (136-145)
--- NOTE | 2020-08-13 06:30 | NUR ---
TRANSFER TO PCU / SHIFT SUMMARY PT BROUGHT TO PCU-12 @ 1920 POST CHOLECYSTOTOMY PLACEMENT. PT A&O X4, SLEEPING MAJORITY OF SHIFT, WIDE AWAKE THIS AM. PT ONLY ABLE TO MOVE RUE, LUE & BLE FLACCID. VSS. SPO2 > 92% ON 2L NC. MONITOR SHOWING SR, HR 80's-90's. PT C/O "R SIDE" PAIN, MEDICATED W/ PRN IV DILAUDID X2 THIS SHIFT W/ IMPROVEMENT. PT W/ LIQUID BROWN OUTPUT IN ILEOSTOMY. CHRONIC CLEARY CATH PATENT & DRAINING. NGT TO LOW INTERMITTENT SUCTION W/ MINIMAL CLEAR/YELLOW/BROWN OUTPUT. PT Q2H TURNS. PRESSURE ULCERS TO COCCYX. SEE WOUND PHOTOS OF COCCYX & BLE IN CHART.
--- NOTE | 2020-08-13 14:35 | NUR ---
UPDATE SPOKE WITH PHYSICIAN REGARDING NG TUBE. PLAN FOR NG TUBE TO BE REMOVED AT 1600 IF LESS THAN 100 ML OUTPUT WITH GRAVITY DRAIN. SPEECH EVAL TO BE PUT IN PER PHYSICIAN. PT TO BE PROGRESSED TO LIQUID DIET.
--- NOTE | 2020-08-13 17:44 | NUR ---
SHIFT SUMMARY/REPORT GIVEN REPORT GIVEN TO JULIETH HANDLEY. PT ALERT AND ORIENTED X 4. HR STABLE. BP STABLE. OXYGEN SATURATION MAINTAINED ABOVE 92% ON 2 L OF OXYGEN VIA NC. MAN DRESSING CHAINED USING STERILE TECHNIQUE. DRAINING BILIARY, BROWN IN COLOR. CLEARY TO GRAVITY DRAIN. PT TURNED Q [address] ON COCCYX. PT REPORTS PAIN IN ABD, MEDICATED PER EMAR. PT REPORTS RELIEF.PT TO BE TRANSPORTED TO MEDICAL FLOOR ROOM 354 BY BED WITH ALL BELONGINGS AND CHART.
--- NOTE | 2020-08-13 18:10 | NUR ---
NG TUBE REMOVAL/BEDSIDE SWALLOW EVAL PER PHYSICIAN ORDER PT HAD LESS THAN 100 ML OUTPUT VIA NG TUBE BY 1600, NG TUBE REMOVED. PT TOLERATED WELL. PHYSICIAN ORDER TO HAVE SPEECH THERAPY EVAL AND BEDSIDE SWALLOW EVAL. BEDSIDE SWALLOW EVAL DONE, PT DID NOT PASS. PT TO REMAIN NPO. SPEECH THERAPY EVAL PUT IN PER PHYSICIAN.
--- NOTE | 2020-08-14 05:03 | NUR ---
SUMMARY PT A/OX4. PT PAIN MANAGED PER EMAR. PT UNNA BOOTS APPLIED ORDERED. PT MAN DRAINING TO GRAVITY. PT CLEARY DRAINING TO GRAVITY. PT SLEPT OFF AND ON DURING SHIFT. PT CONTINUES TO BE NPO. CALL LIGHT IN REACH.
[2020-08-14 05:40] LABS: BASOPHILS ABSOLUTE AUTO 0.05 K/mm3 (0.00-0.23); BASOPHILS PERCENT AUTO 0 % (0-2); EOSINOPHILS ABSOLUTE AUTO 0.64 K/mm3 (0.00-0.68); EOSINOPHILS PERCENT AUTO 5 % (0-6); Hemoglobin 11.5 g/dL (13.5-17.5); IMMATURE GRAN ABSOLUTE AUTO 0.03 K/mm3 (0.00-0.10); IMMATURE GRAN PERCENT AUTO 0 % (0-1); LYMPHOCYTES ABSOLUTE AUTO 0.79 K/mm3 (0.84-5.20); LYMPHOCYTES PERCENT AUTO 6 % (21-46); MONOCYTES ABSOLUTE AUTO 0.88 K/mm3 (0.16-1.47); MONOCYTES PERCENT AUTO 7 % (4-13); Mean Corpuscular HGB 24.6 pg (26.0-34.0); Mean Corpuscular HGB Conc 29.5 g/dL (31.5-36.5); Mean Corpuscular Volume 84 fL (80-100); Mean Platelet Volume 9.3 fL (9.1-12.4); NEUTROPHILS ABSOLUTE AUTO 10.05 K/mm3 (1.96-9.15); NEUTROPHILS PERCENT AUTO 81 % (41-73); Platelet Count 295 K/mm3 (150-400); RDW Coefficient Variation 16.7 % (11.7-14.2); RDW Standard Deviation 50.8 fL (35.1-46.3); Red Blood Cell Count 4.67 M/mm3 (4.30-5.90); White Blood Cell Count 12.44 K/mm3 (4.00-11.30)
[2020-08-14 05:58] LABS: Anion Gap 3 mmol/L (6-16); Blood Urea Nitrogen 16 mg/dL (8-24); Bun/Creatinine Ratio 21.7 (12.0-20.0); CO2, Blood 30 mmol/L (21-32); Calcium, Blood 8.7 mg/dL (8.5-10.1); Chloride, Blood 108 mmol/L (98-108); Creatinine, Blood 0.74 mg/dL (0.60-1.20); Glomerular Filtration Rate >60 (60-); Glucose, Blood 113 mg/dL (70-99); Potassium, Blood 3.7 mmol/L (3.5-5.5); Sodium, Blood 141 mmol/L (136-145)
--- NOTE | 2020-08-14 18:03 | NUR ---
PATIENT HAD SPEECH EVAL TODAY AND PASSED WITH MECH SOFT/NECH THICK CONSISTANCIES. VITALS STABLE. RUE VERY SWOLLEN, HARDENED AND SORE; EVALUATED IT AND INSTRUCTED THAT PG AND IV BE REMOVED FROM RUE AND NEW IV BE PLACE TO LUE; PICC NURSE PLACING AT THIS TIME. PATIENT ABLE TO MAKE NEEDS KNOWN. BILIARY TUBE DRAINING BROWN LIQUID TO GRAVITY. OSTOMY PATENT; CLEARY PATENT. PATIENT MEDICATED FOR PAIN SEVERAL TIME TODAY WITH EFFECTIVE RESULTS. CONTINUES ON IV ABX WITHOUT S/SX OF ADVERSE REACTIONS NOTED OR REPORTED. PATIENT REMAINS IN ROOM AT THIS TIME WITH PUSH-BUTTON CALL LIGHT WITHIN REACH.
[2020-08-15 07:50] LABS: BASOPHILS ABSOLUTE AUTO 0.05 K/mm3 (0.00-0.23); BASOPHILS PERCENT AUTO 1 % (0-2); EOSINOPHILS ABSOLUTE AUTO 0.72 K/mm3 (0.00-0.68); EOSINOPHILS PERCENT AUTO 8 % (0-6); Hematocrit 35.4 % (37.0-53.0); Hemoglobin 10.4 g/dL (13.5-17.5); IMMATURE GRAN ABSOLUTE AUTO 0.03 K/mm3 (0.00-0.10); IMMATURE GRAN PERCENT AUTO 0 % (0-1); LYMPHOCYTES ABSOLUTE AUTO 1.15 K/mm3 (0.84-5.20); LYMPHOCYTES PERCENT AUTO 12 % (21-46); MONOCYTES ABSOLUTE AUTO 0.65 K/mm3 (0.16-1.47); MONOCYTES PERCENT AUTO 7 % (4-13); Mean Corpuscular HGB 24.6 pg (26.0-34.0); Mean Corpuscular HGB Conc 29.4 g/dL (31.5-36.5); Mean Corpuscular Volume 84 fL (80-100); Mean Platelet Volume 9.6 fL (9.1-12.4); NEUTROPHILS ABSOLUTE AUTO 6.91 K/mm3 (1.96-9.15); NEUTROPHILS PERCENT AUTO 73 % (41-73); Platelet Count 313 K/mm3 (150-400); RDW Coefficient Variation 16.5 % (11.7-14.2); RDW Standard Deviation 50.8 fL (35.1-46.3); Red Blood Cell Count 4.22 M/mm3 (4.30-5.90); White Blood Cell Count 9.51 K/mm3 (4.00-11.30)
[2020-08-15 08:32] LABS: Anion Gap 2 mmol/L (6-16); Blood Urea Nitrogen 14 mg/dL (8-24); Bun/Creatinine Ratio 17.1 (12.0-20.0); CO2, Blood 33 mmol/L (21-32); Calcium, Blood 8.5 mg/dL (8.5-10.1); Chloride, Blood 110 mmol/L (98-108); Creatinine, Blood 0.82 mg/dL (0.60-1.20); Glomerular Filtration Rate >60 (60-); Glucose, Blood 85 mg/dL (70-99); Sodium, Blood 145 mmol/L (136-145)
--- NOTE | 2020-08-15 15:38 | NUR ---
PATIENT HAS BEEN PLEASANT AND COOPERATIVE; DRY SENSE OF HUMOR. GAVE PATIENT A BEDBATH AND CHANGE DRESSINGS TO COCCYX AND BILIARY DRAIN; TOLERATED WELL. CONTINUES ON IV ABX WITHOUT S/SX IV ABX NOTED OR REPORTED. VITALS STABLE. HAS RED AREA THAT REMAINS TO ANANDA FROM POWER GLIDE DRESSING WHICH WAS REMOVED YESTERDAY. ILIOSTOMY PATENT AND EMPTIED THIS AFTERNOON; 300cc. NO DRAINAGE NOTED TO BILIARY DRAIN THIS SHIFT THUS FAR. COMPLAINED OF PAIN TWICE THIS SHIFT TO ANANDA WITH EFFECTIVE RESULTS FROM IV PAIN MEDICATION. PATIENT HAS BEEN RESTING MUCH OF THE DAY. CALL BUTTON IN REACH.
--- NOTE | 2020-08-16 04:55 | NUR ---
SUMMARY NO NEW ISSUES NOTED. PT PAIN TX PER EMAR W/ RELIEF. PT MAN DRAIN IS DRAINING WELL TO GRAVITY. CLEARY IS DRANING WELL. PT HAS SLEPT T/O SHIFT. SOFT TOUCH CALL LIGHT IN REACH.
[2020-08-16 06:10] LABS: BASOPHILS ABSOLUTE AUTO 0.04 K/mm3 (0.00-0.23); BASOPHILS PERCENT AUTO 1 % (0-2); EOSINOPHILS ABSOLUTE AUTO 0.62 K/mm3 (0.00-0.68); EOSINOPHILS PERCENT AUTO 7 % (0-6); Hematocrit 33.3 % (37.0-53.0); Hemoglobin 9.7 g/dL (13.5-17.5); IMMATURE GRAN ABSOLUTE AUTO 0.03 K/mm3 (0.00-0.10); IMMATURE GRAN PERCENT AUTO 0 % (0-1); LYMPHOCYTES ABSOLUTE AUTO 0.89 K/mm3 (0.84-5.20); LYMPHOCYTES PERCENT AUTO 10 % (21-46); MONOCYTES ABSOLUTE AUTO 0.51 K/mm3 (0.16-1.47); MONOCYTES PERCENT AUTO 6 % (4-13); Mean Corpuscular HGB 24.6 pg (26.0-34.0); Mean Corpuscular HGB Conc 29.1 g/dL (31.5-36.5); Mean Corpuscular Volume 84 fL (80-100); Mean Platelet Volume 8.9 fL (9.1-12.4); NEUTROPHILS ABSOLUTE AUTO 6.57 K/mm3 (1.96-9.15); NEUTROPHILS PERCENT AUTO 76 % (41-73); Platelet Count 262 K/mm3 (150-400); RDW Coefficient Variation 16.2 % (11.7-14.2); RDW Standard Deviation 49.7 fL (35.1-46.3); Red Blood Cell Count 3.95 M/mm3 (4.30-5.90); White Blood Cell Count 8.66 K/mm3 (4.00-11.30)
[2020-08-16 06:32] LABS: Anion Gap 3 mmol/L (6-16); Blood Urea Nitrogen 12 mg/dL (8-24); Bun/Creatinine Ratio 16.8 (12.0-20.0); CO2, Blood 31 mmol/L (21-32); Calcium, Blood 8.2 mg/dL (8.5-10.1); Chloride, Blood 110 mmol/L (98-108); Creatinine, Blood 0.71 mg/dL (0.60-1.20); Glomerular Filtration Rate >60 (60-); Glucose, Blood 96 mg/dL (70-99); Potassium, Blood 3.9 mmol/L (3.5-5.5); Sodium, Blood 144 mmol/L (136-145)
--- NOTE | 2020-08-16 14:45 | NUR ---
DOCTOR MANDI RECONSULTED. CALLED OFFICE, SPOKE TO STAR.
--- NOTE | 2020-08-16 15:46 | NUR ---
MAN DRAIN TO REMAIN IN PLACE FOR A TOTAL OF FOUR WEEKS, PER DR. RAYMOND. PATIENT MAY FOLLOW UP WITH DR. RAYMOND IN ONE MONTH TO DISCUSS PLAN OF CARE AND/OR SURGICAL INTERVENTION.
--- NOTE | 2020-08-17 04:04 | NUR ---
SHIFT SUMMARY A/OX3, PLEASANT AND COOPERATIVE WITH CARE. MAX ASSIST/LIFT, Q2 REPOSITIONING. C/O PAIN TO ANANDA FOLLOWING INFILTRATED POWERGLIDE, MEDICATED PER EMAR X1. MAN DRAIN TO ABD WELL ILEOSTOMY. CURRENTLY ON 2L VIA NC WITH SATS GREATER THAN 92. CHRONIC CLEARY TO GRAVITY DRAIN. VSS, NO ACUTE CHANGES AT THIS TIME. BED IN LOWEST POSITION WITH CALL LIGHT IN REACH. WILL CONTINUE TO MONITOR AND REPORT TO ONCOMING RN.
[2020-08-17 05:24] LABS: BASOPHILS ABSOLUTE AUTO 0.04 K/mm3 (0.00-0.23); BASOPHILS PERCENT AUTO 1 % (0-2); EOSINOPHILS PERCENT AUTO 7 % (0-6); Hematocrit 32.9 % (37.0-53.0); Hemoglobin 9.7 g/dL (13.5-17.5); IMMATURE GRAN ABSOLUTE AUTO 0.03 K/mm3 (0.00-0.10); IMMATURE GRAN PERCENT AUTO 0 % (0-1); LYMPHOCYTES ABSOLUTE AUTO 0.93 K/mm3 (0.84-5.20); LYMPHOCYTES PERCENT AUTO 11 % (21-46); MONOCYTES ABSOLUTE AUTO 0.62 K/mm3 (0.16-1.47); MONOCYTES PERCENT AUTO 7 % (4-13); Mean Corpuscular HGB 24.6 pg (26.0-34.0); Mean Corpuscular HGB Conc 29.5 g/dL (31.5-36.5); Mean Corpuscular Volume 83 fL (80-100); Mean Platelet Volume 8.8 fL (9.1-12.4); NEUTROPHILS ABSOLUTE AUTO 6.25 K/mm3 (1.96-9.15); NEUTROPHILS PERCENT AUTO 74 % (41-73); Platelet Count 286 K/mm3 (150-400); RDW Coefficient Variation 16.1 % (11.7-14.2); RDW Standard Deviation 49.1 fL (35.1-46.3); Red Blood Cell Count 3.95 M/mm3 (4.30-5.90); White Blood Cell Count 8.47 K/mm3 (4.00-11.30)
[2020-08-17 05:43] LABS: Anion Gap 2 mmol/L (6-16); Blood Urea Nitrogen 10 mg/dL (8-24); Bun/Creatinine Ratio 14.3 (12.0-20.0); CO2, Blood 33 mmol/L (21-32); Calcium, Blood 8.2 mg/dL (8.5-10.1); Chloride, Blood 106 mmol/L (98-108); Glomerular Filtration Rate >60 (60-); Glucose, Blood 98 mg/dL (70-99); Sodium, Blood 141 mmol/L (136-145)
--- NOTE | 2020-08-18 03:38 | NUR ---
SHIFT SUMMARY PT IS A/O. SOFT SPOKEN AND SLOW TO RESPOND. DIFFICULT TO UNDERSTAND AT TIMES. ILEOSTOMY TO R ABD, DRAINING LIQUID LIGHT BROWN STOOL. BILIARY DRAIN TO RUQ OF ABD. SMALL AMOUNT OF DRAINAGE TO IT. CLEARY CATHETER PATENT AND DRAINING. PT CONTINUES TO COMPLAIN OF PAIN TO ABD. MEDICATED X 1 W/ 3 MG PO DILUADID WITH GOOD EFFECT. YAZAN BOOTS INTACT TO BLE'S. DRESSING TO RIGHT UPPER ARM C/D/I. PT DIAPHORETIC THIS EVENING BUT AFEBRILE. HEART RATE TACHY IN THE LOW 100'S. OTHERWISE VITAL SIGNS STABLE. NO ACUTE CHANGES THIS EVENING. WILL CONTINUE TO MONITOR.
[2020-08-18 05:30] LABS: BASOPHILS ABSOLUTE AUTO 0.03 K/mm3 (0.00-0.23); BASOPHILS PERCENT AUTO 0 % (0-2); EOSINOPHILS ABSOLUTE AUTO 0.03 K/mm3 (0.00-0.68); EOSINOPHILS PERCENT AUTO 0 % (0-6); Hematocrit 32.2 % (37.0-53.0); Hemoglobin 9.7 g/dL (13.5-17.5); IMMATURE GRAN ABSOLUTE AUTO 0.11 K/mm3 (0.00-0.10); IMMATURE GRAN PERCENT AUTO 1 % (0-1); LYMPHOCYTES ABSOLUTE AUTO 1.22 K/mm3 (0.84-5.20); LYMPHOCYTES PERCENT AUTO 10 % (21-46); MONOCYTES ABSOLUTE AUTO 0.99 K/mm3 (0.16-1.47); MONOCYTES PERCENT AUTO 8 % (4-13); Mean Corpuscular HGB 24.7 pg (26.0-34.0); Mean Corpuscular HGB Conc 30.1 g/dL (31.5-36.5); Mean Corpuscular Volume 82 fL (80-100); Mean Platelet Volume 9.3 fL (9.1-12.4); NEUTROPHILS ABSOLUTE AUTO 10.34 K/mm3 (1.96-9.15); NEUTROPHILS PERCENT AUTO 81 % (41-73); Platelet Count 464 K/mm3 (150-400); RDW Coefficient Variation 16.4 % (11.7-14.2); Red Blood Cell Count 3.92 M/mm3 (4.30-5.90); White Blood Cell Count 12.72 K/mm3 (4.00-11.30)
[2020-08-18 05:49] LABS: Anion Gap 4 mmol/L (6-16); Blood Urea Nitrogen 13 mg/dL (8-24); Bun/Creatinine Ratio 11.2 (12.0-20.0); CO2, Blood 30 mmol/L (21-32); Calcium, Blood 8.5 mg/dL (8.5-10.1); Chloride, Blood 105 mmol/L (98-108); Creatinine, Blood 1.16 mg/dL (0.60-1.20); Glomerular Filtration Rate >60 (60-); Glucose, Blood 135 mg/dL (70-99); Potassium, Blood 4.8 mmol/L (3.5-5.5); Sodium, Blood 139 mmol/L (136-145)
--- NOTE | 2020-08-18 06:32 | NUR ---
ASSUMED CARE AT 0345 THIS NURSE ASSUMED CARE OF PT FROM PRIMARY RN. PT REPORTED 10/10 UPPER ABD PAIN/DISCOMFORT, STATES R/T "GAS" ASKED FOR DILAUDID, MEDICATED c 3MG PO DILAUDID. REPOSITIONED. CALL LIGHT IN REACH. WILL MONITOR.
[2020-08-18] MEDS ORDERED: HYDMOR2 PO (13:21)
[2020-08-18 14:09] LABS: SARS-Cov-2 (COVID-19) PCR, MMC NEGATIVE (NEGATIVE)
--- NOTE | 2020-08-18 18:03 | NUR ---
DISCHARGE DISCHARGE BACK TO [facility]. DISCHARGE PACKET AND HARD COPY PRESCRIPTION WITH [facility]UST[facility]HABILITATION CONSULTANT. TARAS TRANSFER. UPDATE WOUND PICTURES IN CHART. FOLLOW UP WITH SURGERY AND VASCULAR SCHEDULED. BILIARY DRAIN, CHRONIC CLEARY, AND ILLEOSTOMY PATENT AND DRAINING. REPORT CALLED TO NURSE CALZADA AT [facility].
== END 2020-08-18 17:49 | DRG 871 ==
LOC: ER 12:10 → PCU 16:39 → SURS 16:39 → MEDS 16:39 → SURS 19:47 → MEDS 08-11 02:45 → PCU 08-12 19:14 → MEDS 08-13 18:31
PROVIDERS: Emergency Medicine; Family Medicine; Internal Medicine; Nurse Practitioner Acute Care; ADMIT Internal Medicine
PROC: 0F9430Z Drainage of Gallbladder with Drainage Device, Percutaneous Approach (ICD-10-PCS; principal; 2020-08-10)
DX: A41.9 Sepsis, unspecified organism (principal); J69.0 Pneumonitis due to inhalation of food and vomit; K80.00 Calculus of gallbladder with acute cholecystitis without obstruction; N39.0 Urinary tract infection, site not specified; Z20.822 Contact with and (suspected) exposure to COVID-19; Z79.01 Long term (current) use of anticoagulants; G35 Multiple sclerosis; N31.9 Neuromuscular dysfunction of bladder, unspecified; Z86.711 Personal history of pulmonary embolism; R65.20 Severe sepsis without septic shock; F32.9 Major depressive disorder, single episode, unspecified; K21.9 Gastro-esophageal reflux disease without esophagitis; B96.5 Pseudomonas (aeruginosa) (mallei) (pseudomallei) as the cause of diseases classified elsewhere; E66.9 Obesity, unspecified; Z68.29 Body mass index [BMI] 29.0-29.9, adult; Z96.0 Presence of urogenital implants
CPT/HCPCS: 36415; 47490; 71045; 71046; 74176; 76937; 80048; 80053; 81001; 83605; 83690; 84145; 84484; 85025; 85610; 85730; 87040; 87077; 87086; 87186; 92610; 94644; 94667; 94760; 96365; 96367; 96375; 97161; 99152; 99153; 99285-25; A9270; C1751; C1769; C1894; C9113; J0696; J1170; J1650; J2060; J2250; J2543; J7040; J7050; J7120; Q9967; U0004

== ENCOUNTER 2020-08-21 19:02 | Emergency (ER) | payer OTHER ==
[~2020-08-21] VITALS: Ht 198.1 cm; Wt 113.4 kg
[2020-08-21 21:00] LABS: Calcium, Ionized (POC) 1.16 mmol/L (1.10-1.46); Chloride (POC) 96 mmol/L (98-108); Creatinine (POC) 0.7 mg/dL (0.8-1.3); Glucose (ISTAT POC) 102 mg/dL (70-99); Hemoglobin (POC) 8.2 g/dL (13.5-17.5); Potassium (POC) 4.2 mmol/L (3.5-5.5); Sodium (POC) 137 mmol/L (135-148); Total CO2 (POC) 27 mmol/L (21-32)
[2020-08-21] MEDS ORDERED: AMOCLA875 PO (21:55)
== END 2020-08-22 00:38 | disposition home or self-care (01) ==
LOC: ER 19:02
PROVIDERS: Emergency Medicine
DX: R53.1 Weakness (principal); J69.0 Pneumonitis due to inhalation of food and vomit; Z79.01 Long term (current) use of anticoagulants; Z79.899 Other long term (current) drug therapy; Z88.2 Allergy status to sulfonamides; Z88.6 Allergy status to analgesic agent; Z88.8 Allergy status to other drugs, medicaments and biological substances
CPT/HCPCS: 36415; 71045; 80047; 85014; 99284-25; A9270

== ENCOUNTER 2020-09-09 01:30 | Day surgery (SDC) | payer OTHER ==
[~2020-09-09 01:30] MED LIST changes: +AMOCLA875 PO
== END 2020-09-09 23:37 | disposition home or self-care (01) ==
LOC: WOUND 01:30
DX: L97.822 Non-pressure chronic ulcer of other part of left lower leg with fat layer exposed (principal); L97.812 Non-pressure chronic ulcer of other part of right lower leg with fat layer exposed; G35 Multiple sclerosis; E44.0 Moderate protein-calorie malnutrition; K21.00 Gastro-esophageal reflux disease with esophagitis, without bleeding; A69.20 Lyme disease, unspecified; G47.10 Hypersomnia, unspecified; Z86.711 Personal history of pulmonary embolism; Z79.01 Long term (current) use of anticoagulants; Z86.718 Personal history of other venous thrombosis and embolism; Z87.442 Personal history of urinary calculi; E78.5 Hyperlipidemia, unspecified; D64.9 Anemia, unspecified; Z87.891 Personal history of nicotine dependence; Z74.01 Bed confinement status; Z99.89 Dependence on other enabling machines and devices; Z88.6 Allergy status to analgesic agent; Z88.4 Allergy status to anesthetic agent; Z88.1 Allergy status to other antibiotic agents; Z91.041 Radiographic dye allergy status; Z88.5 Allergy status to narcotic agent; Z88.2 Allergy status to sulfonamides; Z88.8 Allergy status to other drugs, medicaments and biological substances; Z91.018 Allergy to other foods
CPT/HCPCS: A9270; G0463

== ENCOUNTER 2020-09-28 07:35 | Day surgery (SDC) | payer OTHER | END 2020-09-28 22:49 | disposition home or self-care (01) | LOC: WOUND 07:35 | DX: L97.212 Non-pressure chronic ulcer of right calf with fat layer exposed (principal); L97.222 Non-pressure chronic ulcer of left calf with fat layer exposed; E44.0 Moderate protein-calorie malnutrition; G35 Multiple sclerosis | CPT/HCPCS: G0463 ==

== ENCOUNTER 2020-09-30 16:32 | Inpatient (IN) | payer OTHER ==
[~2020-09-30] VITALS: Ht 198.1 cm; Wt 110.2 kg
[2020-09-30 17:22] LABS: BASOPHILS ABSOLUTE AUTO 0.08 K/mm3 (0.00-0.23); BASOPHILS PERCENT AUTO 1 % (0-2); EOSINOPHILS ABSOLUTE AUTO 0.56 K/mm3 (0.00-0.68); EOSINOPHILS PERCENT AUTO 4 % (0-6); Hematocrit 42.5 % (37.0-53.0); Hemoglobin 11.9 g/dL (13.5-17.5); IMMATURE GRAN ABSOLUTE AUTO 0.04 K/mm3 (0.00-0.10); IMMATURE GRAN PERCENT AUTO 0 % (0-1); LYMPHOCYTES ABSOLUTE AUTO 1.23 K/mm3 (0.84-5.20); LYMPHOCYTES PERCENT AUTO 9 % (21-46); MONOCYTES ABSOLUTE AUTO 1.52 K/mm3 (0.16-1.47); MONOCYTES PERCENT AUTO 11 % (4-13); Mean Corpuscular HGB 22.3 pg (26.0-34.0); Mean Corpuscular Volume 80 fL (80-100); Mean Platelet Volume 9.4 fL (9.1-12.4); NEUTROPHILS ABSOLUTE AUTO 9.96 K/mm3 (1.96-9.15); NEUTROPHILS PERCENT AUTO 74 % (41-73); Platelet Count 446 K/mm3 (150-400); RDW Coefficient Variation 17.4 % (11.7-14.2); RDW Standard Deviation 49.4 fL (35.1-46.3); Red Blood Cell Count 5.33 M/mm3 (4.30-5.90); White Blood Cell Count 13.39 K/mm3 (4.00-11.30)
[2020-09-30 17:57] LABS: Alanine Aminotransfer (ALT/SGP 17 U/L (12-78); Albumin, Blood 2.7 g/dL (3.4-5.0); Albumin/Globulin Ratio 0.5 (0.8-1.8); Alk Phos 79 U/L (50-136); Anion Gap 4 mmol/L (6-16); Aspartate Aminotrans (AST/SGOT 33 U/L (12-37); Bilirubin, Total 0.4 mg/dL (0.1-1.0); Blood Urea Nitrogen 9 mg/dL (8-24); CO2, Blood 31 mmol/L (21-32); Chloride, Blood 100 mmol/L (98-108); Creatinine, Blood 0.69 mg/dL (0.60-1.20); Glomerular Filtration Rate >60 (60-); Glucose, Blood 110 mg/dL (70-99); Potassium, Blood 4.4 mmol/L (3.5-5.5); Sodium, Blood 135 mmol/L (136-145); Total Protein, Blood 7.7 g/dL (6.4-8.2)
[2020-09-30] MEDS ORDERED: GUAI600T33 PO (18:54)
[2020-09-30] MEDS ORDERED: FERSU300 PO (18:55)
[2020-09-30] MEDS ORDERED: CLON.5 PO (18:57)
[2020-09-30] MEDS ORDERED: BENADRYL25 MG PO (18:59)
[2020-09-30 20:01] LABS: SARS-Cov-2 (COVID-19) PCR, MMC NEGATIVE (NEGATIVE)
[2020-10-01 05:07] LABS: BASOPHILS ABSOLUTE AUTO 0.06 K/mm3 (0.00-0.23); BASOPHILS PERCENT AUTO 0 % (0-2); EOSINOPHILS ABSOLUTE AUTO 0.06 K/mm3 (0.00-0.68); EOSINOPHILS PERCENT AUTO 0 % (0-6); Hematocrit 44.8 % (37.0-53.0); Hemoglobin 12.5 g/dL (13.5-17.5); IMMATURE GRAN ABSOLUTE AUTO 0.07 K/mm3 (0.00-0.10); IMMATURE GRAN PERCENT AUTO 0 % (0-1); LYMPHOCYTES ABSOLUTE AUTO 0.87 K/mm3 (0.84-5.20); LYMPHOCYTES PERCENT AUTO 5 % (21-46); MONOCYTES ABSOLUTE AUTO 1.63 K/mm3 (0.16-1.47); MONOCYTES PERCENT AUTO 9 % (4-13); Mean Corpuscular HGB 22.2 pg (26.0-34.0); Mean Corpuscular HGB Conc 27.9 g/dL (31.5-36.5); Mean Corpuscular Volume 79 fL (80-100); Mean Platelet Volume 9.3 fL (9.1-12.4); NEUTROPHILS ABSOLUTE AUTO 15.08 K/mm3 (1.96-9.15); NEUTROPHILS PERCENT AUTO 85 % (41-73); Platelet Count 434 K/mm3 (150-400); RDW Coefficient Variation 17.2 % (11.7-14.2); RDW Standard Deviation 48.2 fL (35.1-46.3); Red Blood Cell Count 5.64 M/mm3 (4.30-5.90); White Blood Cell Count 17.77 K/mm3 (4.00-11.30)
--- NOTE | 2020-10-01 06:04 | NUR ---
SUMMARY PT ARRIVED TO FLOOR IN DISCOMFORT. PT C/O RIGHT EAR PAIN. PT EAR WAS FLUSHED ORDERED W/ NO RELIEF. PT GIVEN DILAUDID W/ SOME RELIEF. PT CLEARY CATH WAS NOT CHANGED DUE TO ORDER PLACED BY DR MERCEDES. PT HAS VENOUS STASIS ULCERS THAT ARE BEING TREATED BY [facility]. PT DENIES CX PAIN OR INCREASE IN SOB. CALL LIGHT IN REACH.
--- NOTE | 2020-10-01 18:28 | NUR ---
handoff report given to Rosita CLANCY medical floor. medications reviewed. pt back to 3rd floor and then taken to ct with medical floor staff. pt has catheter left in place r abdomen. checking placement of tube.
--- NOTE | 2020-10-01 19:36 | NUR ---
SHIFT SUMMARY PT IS AO TO SELF AND SURROUNDINGS. PT INCREASINGLY LETHARGIC TOWARDS END OF SHIFT, BUT RESPONDS TO VERBAL STIMULI. PT MEDICATED FOR PAIN X1 THIS AM. PT DENIES N/V. PT PLACED ON 3 L O2 THIS ASHLI FOR SAT OF 89% ON 1 L 02. PT PLACED ON TELE RUNNING SINUS TACHYCARDIA 124. PT NPO FOR ENTIRE DAY PENDING PROCEDURE, THEN ASPIRATION RISK. PT DOWN TO OCCUPATIONAL THERAPY MANAGER FOR DRAIN PLACEMENT THEN TO STAT CT WITH ABNORMAL RESULTS-SEE CT NOTE. THIS RN RECEIVED VERBAL REPORT FROM DR. BOLAÑOS ON PT'S STATUS. DR. BOLAÑOS PLANS TO DC DRAIN TONIGHT. PT DID NOT HAVE VISITORS TODAY. PT IS IN BED, CALL LIGHT IN REACH, LOW POSITION.
[2020-10-02 05:17] LABS: Hematocrit 41.3 % (37.0-53.0); Hemoglobin 11.7 g/dL (13.5-17.5); Mean Corpuscular HGB Conc 28.3 g/dL (31.5-36.5); Mean Corpuscular Volume 78 fL (80-100); Mean Platelet Volume 9.8 fL (9.1-12.4); Platelet Count 352 K/mm3 (150-400); RDW Coefficient Variation 17.2 % (11.7-14.2); RDW Standard Deviation 47.8 fL (35.1-46.3); Red Blood Cell Count 5.33 M/mm3 (4.30-5.90)
[2020-10-02 05:37] LABS: Anion Gap 7 mmol/L (6-16); Blood Urea Nitrogen 12 mg/dL (8-24); Bun/Creatinine Ratio 15.1 (12.0-20.0); CO2, Blood 28 mmol/L (21-32); Calcium, Blood 8.6 mg/dL (8.5-10.1); Chloride, Blood 105 mmol/L (98-108); Glomerular Filtration Rate >60 (60-); Glucose, Blood 119 mg/dL (70-99); Potassium, Blood 3.9 mmol/L (3.5-5.5); Sodium, Blood 140 mmol/L (136-145)
--- NOTE | 2020-10-02 06:41 | NUR ---
SHIFT SUMMARY PT IS A 65 Y/O MALE, ADMITTED FOR PNA. HE IS A&O X SELF, VERY LETHARGIC DURING THE NIGHT. BEDREST. PT PO MEDS WERE HELD DURING THE NIGHT DUE TO PT'S LETHARGY, AND PT CHOKING ON WATER WHEN ATTEMPTING TO DRINK. TELE SHOWED ST IN THE 110-120S. VITAL SIGNS OTHERWISE STABLE. CLEARY IN PLACE, DRAINING YELLOW URINE. COLOSTOMY IN PLACE. NO OTHER ACUTE CHANGES IN PT CONDITION NOTED DURING THE NIGHT. WILL CONTINUE TO MONITOR AND TREAT PER EMAR UNTIL HAND OFF TO DAY SHIFT RN.
[2020-10-02 10:44] LABS: International Normalized Ratio 1.22
[2020-10-02 13:45] LABS: Automated BF RBC Count 0.012 M/mm3 (0-0); Automated BF WBC Count 3.233 K/mm3 (0-999); Body Fluid WBC Count 3233 /mm3 (0-999); RBC Count, Body Fluid 12000 /mm3 (0-0)
[2020-10-02 13:53] LABS: Appearance, Body Fluid Hazy (Clear)
[2020-10-02 14:03] LABS: Albumin, Body Fluid 2.5 g/dL; Glucose, Body Fluid 111 mg/dL; Lactate Dehydrogenase, Body Fl 500 U/L; Protein, Body Fluid 4.8 g/dL
[2020-10-02 14:18] LABS: Total Cell Count, Body Fluid 100
--- NOTE | 2020-10-02 18:50 | NUR ---
SHIFT SUMMARY PT IS AOX4 AND MORE AWAKE THIS SHIFT. PT DENIES PAIN, N/V, SOB. PT HAD US GUIDED THORACENTESIS THIS SHIFT WITH 500ML OUT. PT TELE REMAINS TACH 106. PLAN IS TO MONITOR GALLBLADDER AND INFECTION. PT HAD IMPROVED APPETITE THIS SHIFT. PT EVALUATED BY ST AND CHANGED TO PUREE DIET. PT IS IN BED, CALL LIGHT IN REACH.
[2020-10-03 05:05] LABS: BASOPHILS ABSOLUTE AUTO 0.03 K/mm3 (0.00-0.23); BASOPHILS PERCENT AUTO 0 % (0-2); EOSINOPHILS ABSOLUTE AUTO 0.53 K/mm3 (0.00-0.68); EOSINOPHILS PERCENT AUTO 6 % (0-6); Hematocrit 39.4 % (37.0-53.0); IMMATURE GRAN ABSOLUTE AUTO 0.03 K/mm3 (0.00-0.10); IMMATURE GRAN PERCENT AUTO 0 % (0-1); LYMPHOCYTES ABSOLUTE AUTO 0.87 K/mm3 (0.84-5.20); LYMPHOCYTES PERCENT AUTO 11 % (21-46); MONOCYTES ABSOLUTE AUTO 1.19 K/mm3 (0.16-1.47); MONOCYTES PERCENT AUTO 14 % (4-13); Mean Corpuscular HGB 21.9 pg (26.0-34.0); Mean Corpuscular HGB Conc 27.9 g/dL (31.5-36.5); Mean Corpuscular Volume 79 fL (80-100); Mean Platelet Volume 9.5 fL (9.1-12.4); NEUTROPHILS ABSOLUTE AUTO 5.64 K/mm3 (1.96-9.15); NEUTROPHILS PERCENT AUTO 68 % (41-73); Platelet Count 314 K/mm3 (150-400); RDW Coefficient Variation 16.9 % (11.7-14.2); RDW Standard Deviation 47.9 fL (35.1-46.3); Red Blood Cell Count 5.02 M/mm3 (4.30-5.90); White Blood Cell Count 8.29 K/mm3 (4.00-11.30)
[2020-10-03 05:30] LABS: Anion Gap 4 mmol/L (6-16); Blood Urea Nitrogen 16 mg/dL (8-24); Bun/Creatinine Ratio 23.4 (12.0-20.0); CO2, Blood 31 mmol/L (21-32); Calcium, Blood 8.5 mg/dL (8.5-10.1); Chloride, Blood 107 mmol/L (98-108); Creatinine, Blood 0.69 mg/dL (0.60-1.20); Glomerular Filtration Rate >60 (60-); Glucose, Blood 116 mg/dL (70-99); Potassium, Blood 3.4 mmol/L (3.5-5.5); Sodium, Blood 142 mmol/L (136-145)
--- NOTE | 2020-10-03 06:41 | NUR ---
SHIFT SUMMARY PT IS A 65 Y/O MALE, ADMITTED FOR PNA. HE IS A&O X 3, SOFT-SPOKEN, BEDREST. NO C/O ACUTE PAIN, NAUSEA OR SOB. TELE SHOWED ST IN THE 110S. VITAL SIGNS OTHERWISE STABLE. OSTOMY IN PLACE IN RUQ. CLEARY IN PLACE, PATENT AND DRAINING DARK YELLOW URINE. PT RECEIVIING NS @ KVO. NO ACUTE CHANGES IN PT CONDITION NOTED DURING THE NIGHT. WILL CONTINUE TO MONITOR AND TREAT PER EMAR UNTIL HAND OFF TO DAY SHIFT RN.
--- NOTE | 2020-10-03 17:05 | NUR ---
SHIFT SUMMARY PT IS AOX4 AND PLEASANT. PT DENIES PAIN, N/V, SOB. PT HAS POOR-MODERATE APPETITE THIS SHIFT. PT IS NONAMBULATORY AT BASELINE-REPOSITIONED PRN. PT HAS HAD NO PROCEDURES THIS SHIFT. PLAN IS FOR IR TO EVALUATE GALLBLADDER PLANS TOMORROW. PT HAS NOT HAD VISITORS THIS SHIFT, BUT THIS RN DID SPEAK TO COUSIN VIA PHONE AND PT OKAY'D TO GIVE COUSIN TOMAS AN UPDATE. PT IS IN BED, CALL LIGHT IN REACH, LOW POSITION.
--- NOTE | 2020-10-03 18:47 | NUR ---
Review of pt code stuatus and and orders with physician. will review polst and ad with pt and family.
[2020-10-04 04:38] LABS: BASOPHILS ABSOLUTE AUTO 0.02 K/mm3 (0.00-0.23); BASOPHILS PERCENT AUTO 0 % (0-2); EOSINOPHILS ABSOLUTE AUTO 0.56 K/mm3 (0.00-0.68); EOSINOPHILS PERCENT AUTO 8 % (0-6); Hemoglobin 10.7 g/dL (13.5-17.5); IMMATURE GRAN ABSOLUTE AUTO 0.01 K/mm3 (0.00-0.10); IMMATURE GRAN PERCENT AUTO 0 % (0-1); LYMPHOCYTES ABSOLUTE AUTO 1.15 K/mm3 (0.84-5.20); LYMPHOCYTES PERCENT AUTO 17 % (21-46); MONOCYTES ABSOLUTE AUTO 0.77 K/mm3 (0.16-1.47); MONOCYTES PERCENT AUTO 11 % (4-13); Mean Corpuscular HGB Conc 27.4 g/dL (31.5-36.5); Mean Corpuscular Volume 80 fL (80-100); Mean Platelet Volume 9.5 fL (9.1-12.4); NEUTROPHILS ABSOLUTE AUTO 4.32 K/mm3 (1.96-9.15); NEUTROPHILS PERCENT AUTO 63 % (41-73); Platelet Count 307 K/mm3 (150-400); RDW Coefficient Variation 16.8 % (11.7-14.2); RDW Standard Deviation 48.9 fL (35.1-46.3); Red Blood Cell Count 4.87 M/mm3 (4.30-5.90); White Blood Cell Count 6.83 K/mm3 (4.00-11.30)
[2020-10-04 04:57] LABS: Anion Gap 3 mmol/L (6-16); Blood Urea Nitrogen 17 mg/dL (8-24); Bun/Creatinine Ratio 24.5 (12.0-20.0); CO2, Blood 34 mmol/L (21-32); Calcium, Blood 8.6 mg/dL (8.5-10.1); Chloride, Blood 110 mmol/L (98-108); Creatinine, Blood 0.69 mg/dL (0.60-1.20); Glomerular Filtration Rate >60 (60-); Glucose, Blood 107 mg/dL (70-99); Sodium, Blood 147 mmol/L (136-145)
--- NOTE | 2020-10-04 06:41 | NUR ---
SHIFT SUMMARY PT IS A 65 Y/O MALE, ADMITTED FOR PNA. HE IS A&O X 3, SLOW TO RESPOND, BEDREST. NO C/O ACUTE PAIN, NAUSEA OR SOB. TELE SHOWED ST IN THE 100S. VITAL SIGNS STABLE. PT RECEIVIN NS @ KVO BETWEEN IV ABX. ON 3L OF O2 VIA NC. CLEARY IN PLACE, PATENT AND DRAINING YELLOW URINE. COLOSTOMY IN PLACE. NO ACUTE CHANGES IN PT CONDITION NOTED DURING THE NIGHT. WILL CONTINUE TO MONITOR AND TREAT PER EMAR UNTIL HAND OFF TO DAY SHIFT RN.
--- NOTE | 2020-10-04 18:48 | NUR ---
PATIENT IS ALERT AND ORIENTED AND COOPERATIVE WITH CARE. PATIENT IS VERY INVOLVED IN HIS CARE. ON 3L O2 NC. OCCASIONAL COUGH WITH LOMBARDI SPUTUM. COLOSTOMY, BAG REPLACED TODAY. CHRONIC CLEARY, CHANGED TODAY. BEDBATH TODAY. PATIENT IS BEDBOUND AT BASELINE. Q2H TURNS AND REPOSITIONING WITH PILLOWS. NO C/O PAIN THIS SHIFT. DRESSINGS CHANGED TODAY. PATIENT WOULD LIKE A ST REASSESSMENT TOMORROW, HE DOES NOTT LIKE PUREE DIET. WILL CONTINUE TO MONITOR
[2020-10-05 06:13] LABS: Anion Gap 3 mmol/L (6-16); Blood Urea Nitrogen 14 mg/dL (8-24); Bun/Creatinine Ratio 22.1 (12.0-20.0); CO2, Blood 32 mmol/L (21-32); Calcium, Blood 8.4 mg/dL (8.5-10.1); Chloride, Blood 110 mmol/L (98-108); Creatinine, Blood 0.63 mg/dL (0.60-1.20); Glomerular Filtration Rate >60 (60-); Glucose, Blood 87 mg/dL (70-99); Potassium, Blood 4.1 mmol/L (3.5-5.5); Sodium, Blood 145 mmol/L (136-145)
--- NOTE | 2020-10-05 06:44 | NUR ---
65 YEAR OLD MALE WITH MS & PNEUMONIA CONTINUES ON IV ABX. HE IS ON BASELINE OXYGEN 3 L NC & TOLERATING PUREED DIET WITH NECTAR THICK LIQUIDS. NEEDS FED. pt DENIES PAIN ORE ACUTE DISTRESS. HAD CHOLECT TUBE REMOVED DRESSING PATENT TO AREA. MINIMAL EFFORTS TO MOVE IN BED. HAS PRESSURE ULCER TO SACRAL AREA, BILAT LE SCABBY WOUNDS. WOUND CARE ON DAY SHIFT , DRESSINGS DRY & INTACT. CHRONIC CLEARY CHANGED ON DAY SHIFT. ILEOSTOMY PATENT DRAINING BROWN LIQUID STOOL & FLATUS.
[2020-10-05 11:37] LABS: SARS-Cov-2 (COVID-19) PCR, MMC NEGATIVE (NEGATIVE)
--- NOTE | 2020-10-05 15:53 | NUR ---
NO ACUTE EVENTS THIS SHIFT, VSS. PT APPEARS IN NO ACUTE DISTRESS. PT HAD BED BATH COMPLETED THIS SHIFT, OSTOMY BAG REPLACED BY NURSING STAFF. DISCHARGE PACKET COMPLETED BY MOJGAN CLANCY AND WILL BE PROVIDED TO TRANSPORT BACK TO PT'S FACILITY.
--- NOTE | 2020-10-05 19:36 | NUR ---
Requested by energy specialist Rafia Delacruz post dischage Patrizia RN at [facility] called & asked for discharge transfer report. I had taken care of PT last night so I did review chart & abnormals & discussed Francisco Javier's hospital stay & DC plan with this RN at [facility]. She expressed gratitude for transfer report & plan of care for DC PT with MS who had malfunctioning darian tube removed thoracentesis, aspiration pneumonia.
== END 2020-10-05 17:43 | DRG 177 ==
LOC: ER 16:32 → MEDS 19:07
PROVIDERS: Emergency Medicine; Hospitalist; Internal Medicine; ADMIT Internal Medicine
PROC: 0F9430Z Drainage of Gallbladder with Drainage Device, Percutaneous Approach (ICD-10-PCS; principal; 2020-10-01)
DX: J69.0 Pneumonitis due to inhalation of food and vomit (principal); R53.2 Functional quadriplegia; T85.520A Displacement of bile duct prosthesis, initial encounter; K80.00 Calculus of gallbladder with acute cholecystitis without obstruction; J91.8 Pleural effusion in other conditions classified elsewhere; F41.9 Anxiety disorder, unspecified; Z20.822 Contact with and (suspected) exposure to COVID-19; Z66 Do not resuscitate; K21.9 Gastro-esophageal reflux disease without esophagitis; G35 Multiple sclerosis; N31.9 Neuromuscular dysfunction of bladder, unspecified; I25.10 Atherosclerotic heart disease of native coronary artery without angina pectoris; F32.9 Major depressive disorder, single episode, unspecified; D64.9 Anemia, unspecified; F03.90 Unspecified dementia, unspecified severity, without behavioral disturbance, psychotic disturbance, mood disturbance, and anxiety; Z96.1 Presence of intraocular lens; Z86.711 Personal history of pulmonary embolism; Z86.718 Personal history of other venous thrombosis and embolism; Z88.2 Allergy status to sulfonamides; Z88.5 Allergy status to narcotic agent; Z88.6 Allergy status to analgesic agent; Z88.8 Allergy status to other drugs, medicaments and biological substances; Z79.01 Long term (current) use of anticoagulants; Z79.899 Other long term (current) drug therapy; Z98.890 Other specified postprocedural states; Z74.01 Bed confinement status; Z90.49 Acquired absence of other specified parts of digestive tract; Z98.49 Cataract extraction status, unspecified eye; Z88.1 Allergy status to other antibiotic agents; Z91.048 Other nonmedicinal substance allergy status
CPT/HCPCS: 32555; 36415; 47536; 51702; 71045; 74160; 76705; 80048; 80053; 82042; 82945; 83605; 83615; 84145; 84157; 85025; 85027; 85610; 85730; 87070; 87205; 89051; 92610; 96365; 96366; 96367; 99152; 99153; 99285-25; A9270; C1769; C1887; G0463; J0295; J0456; J0696; J1170; J2400; J3010; J7040; J7050; J7120; Q9967; U0004

== ENCOUNTER → 2020-10-22 | Outpatient (CLI) | payer OTHER ==
[~2020-10-22] MED LIST changes: +FERSU300 PO
[2020-10-23 16:12] LABS: CORONAVIRUS (COVID19) CSH-NRL Negative (Negative)
== END | disposition home or self-care (01) ==
LOC: EDSTATUS 09:12 → LAB RH 10:20
PROVIDERS: Internal Medicine
DX: U07.1 COVID-19 (principal)
CPT/HCPCS: U0003

== ENCOUNTER 2020-10-23 18:29 | Emergency (ER) | payer OTHER ==
[~2020-10-23] VITALS: Ht 198.1 cm; Wt 113.4 kg
[2020-10-23 19:21] LABS: BASOPHILS ABSOLUTE AUTO 0.04 K/mm3 (0.00-0.23); BASOPHILS PERCENT AUTO 0 % (0-2); EOSINOPHILS PERCENT AUTO 2 % (0-6); Hematocrit 43.6 % (37.0-53.0); Hemoglobin 12.4 g/dL (13.5-17.5); IMMATURE GRAN ABSOLUTE AUTO 0.04 K/mm3 (0.00-0.10); IMMATURE GRAN PERCENT AUTO 0 % (0-1); LYMPHOCYTES PERCENT AUTO 7 % (21-46); MONOCYTES ABSOLUTE AUTO 0.86 K/mm3 (0.16-1.47); MONOCYTES PERCENT AUTO 6 % (4-13); Mean Corpuscular HGB 21.8 pg (26.0-34.0); Mean Corpuscular HGB Conc 28.4 g/dL (31.5-36.5); Mean Corpuscular Volume 77 fL (80-100); NEUTROPHILS ABSOLUTE AUTO 11.36 K/mm3 (1.96-9.15); NEUTROPHILS PERCENT AUTO 85 % (41-73); Platelet Count 510 K/mm3 (150-400); RDW Coefficient Variation 17.7 % (11.7-14.2); RDW Standard Deviation 47.8 fL (35.1-46.3)
[2020-10-23 19:35] LABS: Alanine Aminotransfer (ALT/SGP 22 U/L (12-78); Albumin, Blood 2.8 g/dL (3.4-5.0); Albumin/Globulin Ratio 0.5 (0.8-1.8); Alk Phos 82 U/L (50-136); Anion Gap 5 mmol/L (6-16); Aspartate Aminotrans (AST/SGOT 33 U/L (12-37); Bilirubin, Total 0.8 mg/dL (0.1-1.0); Blood Urea Nitrogen 13 mg/dL (8-24); Bun/Creatinine Ratio 23.4 (12.0-20.0); CO2, Blood 35 mmol/L (21-32); Calcium, Blood 9.3 mg/dL (8.5-10.1); Chloride, Blood 98 mmol/L (98-108); Creatinine, Blood 0.56 mg/dL (0.60-1.20); Globulin, Blood 5.2 g/dL (2.2-4.0); Glomerular Filtration Rate >60 (60-); Glucose, Blood 125 mg/dL (70-99); Potassium, Blood 4.2 mmol/L (3.5-5.5); Sodium, Blood 138 mmol/L (136-145)
[2020-10-23] MEDS ORDERED: ONDA4ODT MM (20:49)
== END 2020-10-23 21:32 | disposition home or self-care (01) ==
LOC: ER 18:29
PROVIDERS: Emergency Medicine
DX: K29.71 Gastritis, unspecified, with bleeding (principal); K22.6 Gastro-esophageal laceration-hemorrhage syndrome; G35 Multiple sclerosis; K21.9 Gastro-esophageal reflux disease without esophagitis; F03.90 Unspecified dementia, unspecified severity, without behavioral disturbance, psychotic disturbance, mood disturbance, and anxiety; Z86.711 Personal history of pulmonary embolism; Z93.2 Ileostomy status; Z79.01 Long term (current) use of anticoagulants; Z79.899 Other long term (current) drug therapy; Z88.2 Allergy status to sulfonamides; Z88.5 Allergy status to narcotic agent; Z88.6 Allergy status to analgesic agent; Z91.048 Other nonmedicinal substance allergy status
CPT/HCPCS: 36415; 74177; 80053; 83690; 85025; 86850; 86900; 86901; 99284-25; A9270; Q9967

== ENCOUNTER → 2020-11-15 | Outpatient (CLI) | payer OTHER ==
[2020-11-15 13:34] LABS: Appearance, Urine Cloudy (Clear); Bilirubin, Urine Neg (Neg); Blood, Urine 5+ (Neg); Color, Urine Yellow (P-Yellow); Glucose Qualitative, Urine Neg (Neg); Ketones, Urine Neg (Neg); Leukocyte Esterase, Urine 3+ (Neg); Mean Corpuscular HGB 22.6 pg (26.0-34.0); Mean Corpuscular HGB Conc 29.3 g/dL (31.5-36.5); Mean Corpuscular Volume 77 fL (80-100); Mean Platelet Volume 9.5 fL (9.1-12.4); Nitrite, Urine Pos (Neg); Platelet Count 298 K/mm3 (150-400); Protein, Urine 3+ (Neg); RDW Coefficient Variation 17.9 % (11.7-14.2); RDW Standard Deviation 49.6 fL (35.1-46.3); Red Blood Cell Count 5.31 M/mm3 (4.30-5.90); Urobilinogen, Urine NORM (Normal); White Blood Cell Count 9.41 K/mm3 (4.00-11.30)
[2020-11-15 13:44] LABS: Anion Gap 7 mmol/L (6-16); Blood Urea Nitrogen 15 mg/dL (8-24); Bun/Creatinine Ratio 21.7 (12.0-20.0); CO2, Blood 27 mmol/L (21-32); Chloride, Blood 102 mmol/L (98-108); Creatinine, Blood 0.69 mg/dL (0.60-1.20); Glomerular Filtration Rate >60 (60-); Glucose, Blood 113 mg/dL (70-99); Sodium, Blood 136 mmol/L (136-145)
[2020-11-15 13:56] LABS: Red Blood Cells, Urine 50-100 /hpf (0-2); White Blood Cells, Urine TNTC /hpf (0-5)
[2020-11-15 13:59] LABS: Bacteria Many /hpf; Squamous Epithelial Cells Not Seen /hpf (Few)
[2020-11-16 09:10] LABS: SARS COV-2 IGG AB Negative (Negative); SARS COV-2 IGM AB Negative (Negative)
== END | disposition home or self-care (01) ==
LOC: EDSTATUS 12:08 → LAB RH 13:14
PROVIDERS: Internal Medicine
DX: A41.89 Other specified sepsis (principal); U07.1 COVID-19; N39.0 Urinary tract infection, site not specified
CPT/HCPCS: 80048; 81001; 85027; 86769; 87077; 87086; 87186

== ENCOUNTER → 2021-02-10 | Outpatient (CLI) | payer OTHER | END | disposition home or self-care (01) | LOC: LAB SHORT 15:10 → LAB 15:10 | DX: N39.0 Urinary tract infection, site not specified (principal) | CPT/HCPCS: 87077; 87086; 87186 ==

== ENCOUNTER 2021-03-02 15:57 | Inpatient (IN) | payer OTHER ==
[~2021-03-02] VITALS: Ht 193 cm; Wt 99.4 kg
[2021-03-02 16:16] LABS: BASOPHILS ABSOLUTE AUTO 0.03 K/mm3 (0.00-0.23); BASOPHILS PERCENT AUTO 0 % (0-2); EOSINOPHILS ABSOLUTE AUTO 0.02 K/mm3 (0.00-0.68); EOSINOPHILS PERCENT AUTO 0 % (0-6); Hematocrit 50.3 % (37.0-53.0); Hemoglobin 15.2 g/dL (13.5-17.5); IMMATURE GRAN ABSOLUTE AUTO 0.05 K/mm3 (0.00-0.10); IMMATURE GRAN PERCENT AUTO 0 % (0-1); LYMPHOCYTES ABSOLUTE AUTO 0.82 K/mm3 (0.84-5.20); LYMPHOCYTES PERCENT AUTO 5 % (21-46); MONOCYTES PERCENT AUTO 4 % (4-13); Mean Corpuscular HGB Conc 30.2 g/dL (31.5-36.5); Mean Corpuscular Volume 80 fL (80-100); Mean Platelet Volume 8.9 fL (9.1-12.4); NEUTROPHILS ABSOLUTE AUTO 14.01 K/mm3 (1.96-9.15); NEUTROPHILS PERCENT AUTO 90 % (41-73); Platelet Count 445 K/mm3 (150-400); RDW Coefficient Variation 17.5 % (11.7-14.2); RDW Standard Deviation 48.4 fL (35.1-46.3); Red Blood Cell Count 6.33 M/mm3 (4.30-5.90); White Blood Cell Count 15.53 K/mm3 (4.00-11.30)
[2021-03-02 16:45] LABS: Alanine Aminotransfer (ALT/SGP 34 U/L (12-78); Albumin, Blood 3.4 g/dL (3.4-5.0); Albumin/Globulin Ratio 0.7 (0.8-1.8); Alk Phos 97 U/L (50-136); Anion Gap 9 mmol/L (6-16); Aspartate Aminotrans (AST/SGOT 27 U/L (12-37); Bilirubin, Direct 0.1 mg/dL (0.0-0.3); Bilirubin, Indirect 0.5 mg/dL (0.1-0.7); Bilirubin, Total 0.6 mg/dL (0.1-1.0); Blood Urea Nitrogen 22 mg/dL (8-24); Bun/Creatinine Ratio 26.8 (12.0-20.0); CO2, Blood 23 mmol/L (21-32); Calcium, Blood 9.8 mg/dL (8.5-10.1); Chloride, Blood 103 mmol/L (98-108); Creatinine, Blood 0.82 mg/dL (0.60-1.20); Glomerular Filtration Rate >60 (60-); Glucose, Blood 148 mg/dL (70-99); Magnesium, Blood 2.2 mg/dL (1.6-2.4); Potassium, Blood 4.5 mmol/L (3.5-5.5); Sodium, Blood 135 mmol/L (136-145); Total Protein, Blood 8.4 g/dL (6.4-8.2); Troponin I <0.015 ng/mL (0.000-0.040)
[2021-03-02 17:37] LABS: Influenza A, PCR NEGATIVE (NEGATIVE); Influenza B, PCR NEGATIVE (NEGATIVE); Resp Syncytial Virus, PCR NEGATIVE (NEGATIVE); SARS-Cov-2 (COVID-19) PCR, MMC NEGATIVE (NEGATIVE)
[2021-03-02 17:42] LABS: International Normalized Ratio 1.19; Prothrombin Time Results 12.4 Sec (9.7-11.5)
[2021-03-02 17:48] LABS: Source, Urine Catheter
[2021-03-02 17:52] LABS: Appearance, Urine Cloudy (Clear); Bilirubin, Urine Neg (Neg); Blood, Urine 5+ (Neg); Color, Urine Yellow (P-Yellow); Glucose Qualitative, Urine Neg (Neg); Ketones, Urine Neg (Neg); Leukocyte Esterase, Urine 3+ (Neg); Nitrite, Urine Neg (Neg); Protein, Urine 3+ (Neg); Urobilinogen, Urine NORM (Normal)
[2021-03-02 18:04] LABS: White Blood Cells, Urine 50-100 /hpf (0-5)
[2021-03-02 18:05] LABS: Amorphous Light (0-Heavy); Bacteria Many /hpf; Calcium Oxalate Crystals Rare /hpf; Squamous Epithelial Cells Not Seen /hpf (Few)
[2021-03-03 00:54] LABS: Troponin I 0.04 ng/mL (0.000-0.040)
--- NOTE | 2021-03-03 04:40 | NUR ---
SHIFT SUMMARY 65 YR M ADMITTED ON 03/01/21 FOR UROSEPSIS AND N/V. PT RESIDES AT [facility]. HE HAS MS W/ NEUROGENIC BLADDER, ANXIETY, GERD, DVT/PE, DEPRESSION, AND URINE RETENTION. A 18 F CLEARY WAS PLACED IN THE ED. PT IS UNABLE TO WALK AND IS BED RIDDEN, BUT HE CAN COMMUNICATE WELL. HE HAS AN ILLEOSTOMY BAG WHICH WAS EMPTIED TODAY, AND AN NG TUBE THAT IS AT LOW INTERMITENT SUCTION.
[2021-03-03 08:32] LABS: BASOPHILS ABSOLUTE AUTO 0.06 K/mm3 (0.00-0.23); BASOPHILS PERCENT AUTO 0 % (0-2); EOSINOPHILS ABSOLUTE AUTO 0.03 K/mm3 (0.00-0.68); EOSINOPHILS PERCENT AUTO 0 % (0-6); Hematocrit 48.9 % (37.0-53.0); Hemoglobin 14.6 g/dL (13.5-17.5); IMMATURE GRAN ABSOLUTE AUTO 0.07 K/mm3 (0.00-0.10); IMMATURE GRAN PERCENT AUTO 0 % (0-1); LYMPHOCYTES ABSOLUTE AUTO 1.23 K/mm3 (0.84-5.20); LYMPHOCYTES PERCENT AUTO 7 % (21-46); MONOCYTES ABSOLUTE AUTO 1.24 K/mm3 (0.16-1.47); MONOCYTES PERCENT AUTO 7 % (4-13); Mean Corpuscular HGB 24.2 pg (26.0-34.0); Mean Corpuscular HGB Conc 29.9 g/dL (31.5-36.5); Mean Corpuscular Volume 81 fL (80-100); Mean Platelet Volume 8.9 fL (9.1-12.4); NEUTROPHILS ABSOLUTE AUTO 14.67 K/mm3 (1.96-9.15); NEUTROPHILS PERCENT AUTO 85 % (41-73); Platelet Count 448 K/mm3 (150-400); RDW Coefficient Variation 17.3 % (11.7-14.2); RDW Standard Deviation 50.4 fL (35.1-46.3); Red Blood Cell Count 6.03 M/mm3 (4.30-5.90)
[2021-03-03 08:53] LABS: Alanine Aminotransfer (ALT/SGP 32 U/L (12-78); Albumin/Globulin Ratio 0.6 (0.8-1.8); Alk Phos 81 U/L (50-136); Anion Gap 7 mmol/L (6-16); Aspartate Aminotrans (AST/SGOT 19 U/L (12-37); Bilirubin, Total 0.6 mg/dL (0.1-1.0); Blood Urea Nitrogen 20 mg/dL (8-24); Bun/Creatinine Ratio 25.9 (12.0-20.0); CO2, Blood 25 mmol/L (21-32); CPK Creatine Kinase 59 U/L (39-308); Calcium, Blood 9.4 mg/dL (8.5-10.1); Chloride, Blood 108 mmol/L (98-108); Creatinine, Blood 0.77 mg/dL (0.60-1.20); Globulin, Blood 5.2 g/dL (2.2-4.0); Glomerular Filtration Rate >60 (60-); Glucose, Blood 118 mg/dL (70-99); Potassium, Blood 4.3 mmol/L (3.5-5.5); Sodium, Blood 140 mmol/L (136-145); Total Protein, Blood 8.2 g/dL (6.4-8.2); Troponin I <0.015 ng/mL (0.000-0.040)
--- NOTE | 2021-03-03 10:50 | NUR ---
SUCTION OFF FOR ONE HOUR FOR P.O. MEDS. AWARE. TURNED Q 2 HOURS. GIVEN TOUCH CALL LIGHT AND POSITIONED SO PATIENT IS ABLE TO USE WITH RT ARM. SPEAKS IN WHISPER AND SLIGHTLY GARBLED BUT IS ABLE TO MAKE HIS NEEDS KNOWN.
[2021-03-03] MEDS ORDERED: Vitamin B Comple1 EA PO (11:17)
[2021-03-03] MEDS ORDERED: UBID10 PO (11:18)
[2021-03-03] MEDS ORDERED: AZO CRANBERRY PO (11:21)
[2021-03-03] MEDS ORDERED: FAMO20 PO (11:24)
[2021-03-03] MEDS ORDERED: CLON.5 PO (11:25)
[2021-03-03] MEDS ORDERED: GABA300 PO (11:26)
--- NOTE | 2021-03-03 15:31 | NUR ---
LEFT MESSAGE ABOUT LOVENOX VS SCD'S. AWAITING ORDERS
--- NOTE | 2021-03-03 15:42 | NUR ---
ALERT. ORIENTED. ABLE TO USE TOUCH CALL LIGHT. ABLE TO MAKE NEEDS KNOWN. DRESSINGS TO BUTTOCK AND LEGS DRY AND INTACT, NOT CHANGED. IV TO RT HAND PATENT AND INFUSING. CLEARY DRAINING YELLOW COLORED URINE WITH SEDIMENT. ILEOSTOMY LITTLE DRAINAGE WITH NIGHT RN STATING SHE HAD A LOT OF LIQUID DRAINAGE CHECKING IT OFTEN. DISCOMFORT MID ABD WITH DR. STRONG AWARE. NG WITH SMALL AMOUNT OF BROWNISH DRAINAGE HOOKED UP TO INTERMITENT SUCTION AND TURNED OFF FOR ABOUT 1 HOUR FOR P.O. MEDS WITH DR. ENGLISH AWARE. ONLY MOVEMENT IS IN RT ARM. TO ORDER SURGERY CONSULT FOR ABD PAIN. ECHO BEING DONE. UNLABORED RESPIRATIONS. WCTM
[2021-03-04 05:11] LABS: BASOPHILS PERCENT AUTO 1 % (0-2); EOSINOPHILS ABSOLUTE AUTO 0.26 K/mm3 (0.00-0.68); EOSINOPHILS PERCENT AUTO 2 % (0-6); Hematocrit 44.8 % (37.0-53.0); Hemoglobin 13.4 g/dL (13.5-17.5); IMMATURE GRAN ABSOLUTE AUTO 0.05 K/mm3 (0.00-0.10); IMMATURE GRAN PERCENT AUTO 0 % (0-1); LYMPHOCYTES ABSOLUTE AUTO 1.29 K/mm3 (0.84-5.20); LYMPHOCYTES PERCENT AUTO 8 % (21-46); MONOCYTES ABSOLUTE AUTO 1.59 K/mm3 (0.16-1.47); MONOCYTES PERCENT AUTO 10 % (4-13); Mean Corpuscular HGB 24.1 pg (26.0-34.0); Mean Corpuscular HGB Conc 29.9 g/dL (31.5-36.5); Mean Corpuscular Volume 81 fL (80-100); Mean Platelet Volume 8.9 fL (9.1-12.4); NEUTROPHILS ABSOLUTE AUTO 13.46 K/mm3 (1.96-9.15); NEUTROPHILS PERCENT AUTO 80 % (41-73); Platelet Count 379 K/mm3 (150-400); RDW Coefficient Variation 17.5 % (11.7-14.2); RDW Standard Deviation 50.6 fL (35.1-46.3); Red Blood Cell Count 5.55 M/mm3 (4.30-5.90); White Blood Cell Count 16.75 K/mm3 (4.00-11.30)
[2021-03-04 05:28] LABS: Alanine Aminotransfer (ALT/SGP 31 U/L (12-78); Albumin, Blood 2.7 g/dL (3.4-5.0); Albumin/Globulin Ratio 0.6 (0.8-1.8); Alk Phos 70 U/L (50-136); Anion Gap 6 mmol/L (6-16); Aspartate Aminotrans (AST/SGOT 23 U/L (12-37); Bilirubin, Total 0.6 mg/dL (0.1-1.0); Blood Urea Nitrogen 24 mg/dL (8-24); Bun/Creatinine Ratio 25.2 (12.0-20.0); CO2, Blood 24 mmol/L (21-32); Calcium, Blood 8.9 mg/dL (8.5-10.1); Chloride, Blood 112 mmol/L (98-108); Creatinine, Blood 0.95 mg/dL (0.60-1.20); Globulin, Blood 4.8 g/dL (2.2-4.0); Glomerular Filtration Rate >60 (60-); Glucose, Blood 106 mg/dL (70-99); Potassium, Blood 3.7 mmol/L (3.5-5.5); Sodium, Blood 142 mmol/L (136-145); Total Protein, Blood 7.5 g/dL (6.4-8.2)
[2021-03-04 05:47] LABS: Vancomycin, Trough 28.5 ug/mL (5.0-10.0)
--- NOTE | 2021-03-04 06:01 | NUR ---
SUMMARY PT HAD NO NEW ISSUES NOTED. PT SACRAL DRESSING REMAINS C/D/I. PT OSTOMY EMPTIED NEEDED. THERE SMALL AMOUNTS ONLY IN OSTOMY. PT LEGS ARE DRESSED AND C/D/I. PT CLEARY DRAINING TO GRAVITY. PT SLEEPING WITH CALL LIGHT IN REACH.
--- NOTE | 2021-03-04 19:30 | NUR ---
PT IS A/OX4, PLEASANT AND COOPERATIVE, THE PT IS BED BOUND DUE TO ADVANCED MS. THE PT WAS FLOATED ON PILLOWS TODAY HE REQUESTED. THE PT APPEARS TO BE BREATHING EASILY ON RA AT THIS TIME. PT HAS AN NG TUBE IN PLACE DRAINING BROWN COLORED BILE. ILLEOSTOMY HAS A LARGE AMOUNT OF OUTPUT DESPIT THE PT BEING NPO. PT HAS A CHRONIC URINARY CATHERTER IN PLACE AND DRAING. THE PTS BILAT LOWER EXTREMITY WOUNDS WERE CHANGED TODAY PT TOLERATED WELL. THE PTS COCCYX WOUND DRSG WAS C/D/I. CALL LIGHT IN REACH. PT APPEARS COMFORTABLE
--- NOTE | 2021-03-04 19:36 | NUR ---
LEG WOUND CHANGE CLEANED LEGS WITH WOUND CONTRACT IMPLEMENTATION ANALYST APPLIED BACTROBAN OINTMENT. COVERED WITH NON ADHERING GAUZE AND WRAPPED WITH KURLEX BILATERAL LEGS. PT TOLERATED WELL
--- NOTE | 2021-03-05 05:05 | NUR ---
SHIFT SUMMARY PT IS A 65 Y/O MALE, ADMITTED FOR SEPSIS. HE IS A&O X 3, BEDREST. LUE IS FLACCID, WITH SOME MOVEMENT OF RUE NOTED. TELE SHOWED NSR @ 73. VITAL SIGNS OTHERWISE STABLE. NO C/O ACUTE PAIN, NAUSEA OR SOB. ILEOSTOMY IN PLACE, DRAINING DARK BROWN LIQUID STOOL. CHRONIC CLEARY IN PLACE, DRAINING DARK YELLOW URINE. NG TUBE IN PLACE, TO LOW INTERMITTENT SUCTION. DRAINING SMALL AMOUNTS OF DARK BROWN OUTPUT. NO OTHER ACUTE CHANGES IN PT CONDITION NOTED. WILL CONTINUE TO MONITOR AND TREAT PER EMAR UNTIL HAND OFF TO DAY SHIFT RN.
[2021-03-05 05:41] LABS: BASOPHILS ABSOLUTE AUTO 0.06 K/mm3 (0.00-0.23); BASOPHILS PERCENT AUTO 1 % (0-2); EOSINOPHILS ABSOLUTE AUTO 0.53 K/mm3 (0.00-0.68); EOSINOPHILS PERCENT AUTO 4 % (0-6); Hematocrit 43.1 % (37.0-53.0); Hemoglobin 12.7 g/dL (13.5-17.5); IMMATURE GRAN ABSOLUTE AUTO 0.03 K/mm3 (0.00-0.10); IMMATURE GRAN PERCENT AUTO 0 % (0-1); LYMPHOCYTES ABSOLUTE AUTO 0.94 K/mm3 (0.84-5.20); LYMPHOCYTES PERCENT AUTO 8 % (21-46); MONOCYTES ABSOLUTE AUTO 1.01 K/mm3 (0.16-1.47); MONOCYTES PERCENT AUTO 8 % (4-13); Mean Corpuscular HGB 23.9 pg (26.0-34.0); Mean Corpuscular HGB Conc 29.5 g/dL (31.5-36.5); Mean Corpuscular Volume 81 fL (80-100); Mean Platelet Volume 9.2 fL (9.1-12.4); NEUTROPHILS ABSOLUTE AUTO 9.54 K/mm3 (1.96-9.15); NEUTROPHILS PERCENT AUTO 79 % (41-73); Platelet Count 320 K/mm3 (150-400); RDW Coefficient Variation 17.1 % (11.7-14.2); RDW Standard Deviation 50.5 fL (35.1-46.3); Red Blood Cell Count 5.31 M/mm3 (4.30-5.90); White Blood Cell Count 12.11 K/mm3 (4.00-11.30)
[2021-03-05 06:47] LABS: Alanine Aminotransfer (ALT/SGP 32 U/L (12-78); Albumin, Blood 2.6 g/dL (3.4-5.0); Albumin/Globulin Ratio 0.6 (0.8-1.8); Alk Phos 65 U/L (50-136); Anion Gap 9 mmol/L (6-16); Aspartate Aminotrans (AST/SGOT 22 U/L (12-37); Bilirubin, Total 0.6 mg/dL (0.1-1.0); Blood Urea Nitrogen 21 mg/dL (8-24); Bun/Creatinine Ratio 25.8 (12.0-20.0); CO2, Blood 24 mmol/L (21-32); Calcium, Blood 8.6 mg/dL (8.5-10.1); Chloride, Blood 115 mmol/L (98-108); Creatinine, Blood 0.81 mg/dL (0.60-1.20); Glomerular Filtration Rate >60 (60-); Glucose, Blood 82 mg/dL (70-99); Potassium, Blood 3.7 mmol/L (3.5-5.5); Sodium, Blood 148 mmol/L (136-145); Total Protein, Blood 6.6 g/dL (6.4-8.2)
--- NOTE | 2021-03-05 17:29 | NUR ---
SHIFT SUMMARY PATIENT IS ALERT AND ORIENTED X4, PLEASANT AND COOPERATIVE WITH CARE. THE PATIENT'S TELE WAS DC'D THIS SHIFT. ON RA. PATIENT TOLERATED FULL LIQUID DIET FOR LUNCH. [facility] SOFT DIET ORDERED FOR DINNER. NG TUBE DC'D AFTER CLAMPING FOR 6HRS PER DOC'S MD ENGLISH/MD BURT. PATIENT TOLERATED WELL. PATIENT'S LEG DRESSINGS WERE CHANGED THIS SHIFT. VSS. TAB LIGHT WITHIN REACH. BED IN LOWEST POSITION. WILL CONTINUE TO CARE FOR THE PATIENT UNTIL SHIFT REPORT IS GIVEN TO THE ONCOMING NURSE.
--- NOTE | 2021-03-06 03:53 | NUR ---
SHIFT SUMMARY NO ACUTE CHANGES TO PT CONDITION DURING THIS SHIFT. PT A&O X 4. NO REPORT OF PAIN. JOSTIN SHERWOOD, HX MS. ILEOSTOMY DRAINING DARK BROWN STOOL. TAB LIGHT WITHIN REACH. WILL CONTINUE TO MONITOR. MEDICATED PER EMAR.
[2021-03-06 05:21] LABS: Hematocrit 39.9 % (37.0-53.0); Hemoglobin 11.9 g/dL (13.5-17.5); Mean Corpuscular HGB 24.2 pg (26.0-34.0); Mean Corpuscular HGB Conc 29.8 g/dL (31.5-36.5); Mean Corpuscular Volume 81 fL (80-100); Mean Platelet Volume 9.3 fL (9.1-12.4); Platelet Count 298 K/mm3 (150-400); RDW Coefficient Variation 17.1 % (11.7-14.2); RDW Standard Deviation 50.5 fL (35.1-46.3); Red Blood Cell Count 4.92 M/mm3 (4.30-5.90)
[2021-03-06 06:20] LABS: Anion Gap 6 mmol/L (6-16); Blood Urea Nitrogen 16 mg/dL (8-24); Bun/Creatinine Ratio 21.4 (12.0-20.0); CO2, Blood 27 mmol/L (21-32); Calcium, Blood 8.7 mg/dL (8.5-10.1); Chloride, Blood 116 mmol/L (98-108); Creatinine, Blood 0.75 mg/dL (0.60-1.20); Glomerular Filtration Rate >60 (60-); Glucose, Blood 103 mg/dL (70-99); Potassium, Blood 3.5 mmol/L (3.5-5.5); Sodium, Blood 149 mmol/L (136-145)
[2021-03-06 14:05] LABS: Anion Gap 5 mmol/L (6-16); Blood Urea Nitrogen 16 mg/dL (8-24); Bun/Creatinine Ratio 21.6 (12.0-20.0); CO2, Blood 29 mmol/L (21-32); Calcium, Blood 8.7 mg/dL (8.5-10.1); Chloride, Blood 115 mmol/L (98-108); Creatinine, Blood 0.74 mg/dL (0.60-1.20); Glomerular Filtration Rate >60 (60-); Glucose, Blood 103 mg/dL (70-99); Potassium, Blood 3.3 mmol/L (3.5-5.5); Sodium, Blood 149 mmol/L (136-145)
--- NOTE | 2021-03-06 17:40 | NUR ---
SHIFT SUMMARY PT HAS BEEN RESTING COMFORTABLE IN BED. HAD TO REPLACE URINARY CATHETER THIS AM TOO MUCH SEDIMENT HAD BUILT UP IN THE CATHETER AND URINE WAS LEAKING AROUND THE TUBE. PT STATES THAT HIS CATHETER IS FLUSHED WITH 60 ML DAILY AT [facility] TO PREVENT SEDIMENT BUILD UP AND THE WRONG SIZE CATHETER WAS USED WHEN HE CAME TO THE FLOOR. CATHETER REPLACED WITH 18 FR AND IS PATENT WITH LIGHT YELLOW URINE. SACRAL MEPELEX REPLACED. WILL CONTINUE TO MONITOR.
--- NOTE | 2021-03-07 03:17 | NUR ---
FRAME STYLIST SUMMARY HAS BEEN RESTING QUIETLY WITH FEW INTERRUPTIONS SINCE HS, WITH HOB ELEVATED FOR COMFORT. IVF OF 0.45 NS INFUSING AT 200 ML/HR AND RECEIVING IV ANTIBIOTICS SCHEDULED Q 6 HRS (SEE MAR FOR DETAILS). REMAINS ON CONTACT PRECAUTIONS FOR ESBL. CONTINUES TO HAVE DECREASED SENSATION IN ALL 4 EXT AND LIMITED PHYSICAL USE OF BLE AND LEFT UPPER EXT DUE TO MS. ILEOSTOMY IN USE AND HAS CHRONIC CLEARY, BOTH ARE FUNCTIONING. CALL LIGHT IN REACH. NO C/O VOICED.
[2021-03-07 05:57] LABS: Anion Gap 7 mmol/L (6-16); Blood Urea Nitrogen 11 mg/dL (8-24); Bun/Creatinine Ratio 17.4 (12.0-20.0); CO2, Blood 26 mmol/L (21-32); Calcium, Blood 8.2 mg/dL (8.5-10.1); Chloride, Blood 112 mmol/L (98-108); Creatinine, Blood 0.63 mg/dL (0.60-1.20); Glomerular Filtration Rate >60 (60-); Glucose, Blood 112 mg/dL (70-99); Potassium, Blood 3.3 mmol/L (3.5-5.5); Sodium, Blood 145 mmol/L (136-145)
--- NOTE | 2021-03-07 15:04 | NUR ---
SHIFT SUMMARY PT IS A&O, PLEASANT AND CO-OP WITH CARE. MINIMAL TO NO USE OF EXTREMITIES D/T HX OF MS. L SIDE MOSTLY FLACCID. ABLE TO USE TOUCH CALL LT WITH RH JERKING MOVEMENTS. PT REQUIRES ASSISTANCE WITH FEEDING. CHRONIC CLEARY TO GRAVITY, DRAINGING CL YELLOW URINE. OSTOMY TO RLQ; CHANGED TWICE THIS SHIFT. APPLIANCE DOES NOT ADHERE WELL TO SKIN EVEN WITH SKIN PREP. PER SHIFT REPORT, PT WAITING FOR PLACEMENT, COMING FROM [facility]. DRSG'S TO BLE'S BOTH CHANGED TODAY WELL. NO C/O PAIN. ABLE TO MAKE NEEDS KNOWN. RESTING QUIETLY AT THIS TIME.
--- NOTE | 2021-03-08 05:23 | NUR ---
SERVICES MGR SUMMARY AWAKE AT INTERVALS THIS SHIFT. IVF OF 0.45 NS CONTINUES TO INFUSE AT 200 ML/HR AND ANTIBIOTICS SCHEDULED Q 6 HRS. CLEARY DRAINING AND ILEOSTOMY WORKING. NOTED SOME UNDIGESTED FOOD IN OSTOMY BAG EARLIER WHEN EMPTIED. CALL LIGHT IN REACH AND ISOLATION PRECAUTIONS MAINTAINED.
[2021-03-08 09:44] LABS: Anion Gap 6 mmol/L (6-16); Blood Urea Nitrogen 7 mg/dL (8-24); Bun/Creatinine Ratio 10.8 (12.0-20.0); CO2, Blood 26 mmol/L (21-32); Chloride, Blood 109 mmol/L (98-108); Creatinine, Blood 0.65 mg/dL (0.60-1.20); Glomerular Filtration Rate >60 (60-); Glucose, Blood 89 mg/dL (70-99); Phosphorus, Blood 3.2 mg/dL (2.5-4.9); Potassium, Blood 3.8 mmol/L (3.5-5.5); Sodium, Blood 141 mmol/L (136-145)
[2021-03-08] MEDS ORDERED: UNASYN 3 GM VIAL3 G1 IV (13:25)
[2021-03-08] MEDS ORDERED: VISBIOME 112.51 EACH PO (13:25)
[2021-03-08 14:12] LABS: Influenza A, PCR NEGATIVE (NEGATIVE); Influenza B, PCR NEGATIVE (NEGATIVE); Resp Syncytial Virus, PCR NEGATIVE (NEGATIVE); SARS-Cov-2 (COVID-19) PCR, MMC NEGATIVE (NEGATIVE)
--- NOTE | 2021-03-08 15:14 | NUR ---
SHIFT SUMMARY NO ACUTE CHANGES TO PRESENT THIS SHIFT. PT IS A&O, WITH HX OF MS AND VERY LIMITED MOBILITY. ADMITTED FOR SEPSIS R/T UTI. HX OF CHRONIC CLEARY D/T NEUROGENIC BLADDER AND ILEOSTOMY IN RLQ; APPLIANCE CHANGED TWICE YESTERDAY. SCABS AND REDNESS TO BLE'S WITH DRSG'S C/D/I. DRSG'S CHANGED YESTERDAY AND AGAIN TODAY. PT REPOSITIONED SEVERAL TIMES. BLE'S WITH CONTRACTURES AND STIFFNESS; ELVATED ON PILLOWS. PT TO D/C TO R/H THIS AFTERNOON. COVID TEST NEG. TOUCH CALL LT IN REACH, PT ABLE TO MAKE NEEDS KNOWN.
--- NOTE | 2021-03-08 19:44 | NUR ---
CALLS PLACED TO [facility] FOR PT TRANSFER TO THEIR FACILITY. 2 CALLS MADE, FIRST WAS LEFT ON HOLD X 15 MIN AND THEN HUNG UP, SECOND ONE WAS ON HOLD FOR 10 MINUTES THEN A NURSE BY THE NAME OF HENRRY" ANSWERED AND TOOK REPORT. DR BAHENA THEN CALLED FOR FOLLOW UP RE DC, NOTIFIED OF CALL TO [facility]. CHARGE NURSE WAS NOTIFIED AND CALLED RE TRANSPORT BETWEEN FACILITIES. PT CURRENTLY SMILING AND ASYMPTOMATIC. VSS
--- NOTE | 2021-03-08 20:59 | NUR ---
AMBULANCE CREW ARRIVED AND TRANSPORTED PT TO DISCHARGE FACILITY PER TARAS. DISCHARGED/LEFT AT 2047.
--- NOTE | 2021-03-08 21:01 | NUR ---
DC NOTE ADDENDUM DISCHARGE PACKET/PAPERWRK SENT WITH PT, HS MEDS GIVEN PRIOR TO DISCHARGE
== END 2021-03-08 20:28 | DRG 698 ==
LOC: ER 15:57 → ERHOLD 18:33 → MEDS 18:33
PROVIDERS: Family Medicine; Student in an Organized Health Care Education/Training Program; ADMIT Internal Medicine
PROC: 0D9670Z Drainage of Stomach with Drainage Device, Via Natural or Artificial Opening (ICD-10-PCS; principal; 2021-03-04)
DX: T83.511A Infection and inflammatory reaction due to indwelling urethral catheter, initial encounter (principal); A41.81 Sepsis due to Enterococcus; E87.0 Hyperosmolality and hypernatremia; Z20.822 Contact with and (suspected) exposure to COVID-19; N39.0 Urinary tract infection, site not specified; E87.6 Hypokalemia; I48.91 Unspecified atrial fibrillation; G35 Multiple sclerosis; I25.10 Atherosclerotic heart disease of native coronary artery without angina pectoris; D64.9 Anemia, unspecified; N31.9 Neuromuscular dysfunction of bladder, unspecified; F03.90 Unspecified dementia, unspecified severity, without behavioral disturbance, psychotic disturbance, mood disturbance, and anxiety; F32.A Depression, unspecified; F41.9 Anxiety disorder, unspecified; K21.9 Gastro-esophageal reflux disease without esophagitis; Z88.2 Allergy status to sulfonamides; Z28.21 Immunization not carried out because of patient refusal; Z88.5 Allergy status to narcotic agent; Z88.6 Allergy status to analgesic agent; Z88.8 Allergy status to other drugs, medicaments and biological substances; Z79.01 Long term (current) use of anticoagulants; Z88.1 Allergy status to other antibiotic agents; Z79.899 Other long term (current) drug therapy; Z86.718 Personal history of other venous thrombosis and embolism; Z86.711 Personal history of pulmonary embolism; Z98.890 Other specified postprocedural states; Z87.891 Personal history of nicotine dependence; Z93.2 Ileostomy status; Y84.6 Urinary catheterization as the cause of abnormal reaction of the patient, or of later complication, without mention of misadventure at the time of the procedure
CPT/HCPCS: 0241U; 36415; 51702; 71045; 74177; 80048; 80053; 80076; 80202; 81001; 82272; 82550; 83605; 83690; 83735; 83880; 84100; 84132; 84484; 85025; 85027; 85610; 85730; 87040; 87077; 87086; 87186; 93005; 93010; 93306; 96365-59; 96366-59; 96367-59; 96375-59; 99285-25; A9270; C9113; J0295; J1160; J2405; J2543; J2765; J3370; J7030; J7050; J7120; Q9967

== ENCOUNTER 2021-03-12 19:22 | Emergency (ER) | payer OTHER ==
[~2021-03-12] VITALS: Ht 198.1 cm; Wt 113.4 kg
[~2021-03-12 19:22] MED LIST changes: +AZO CRANBERRY PO; +FAMO20 PO; +UBID10 PO; +UNASYN 3 GM VIAL3 G1 IV; +VISBIOME 112.51 EACH PO; +Vitamin B Comple1 EA PO
[2021-03-12 22:15] LABS: BASOPHILS ABSOLUTE AUTO 0.06 K/mm3 (0.00-0.23); BASOPHILS PERCENT AUTO 1 % (0-2); EOSINOPHILS ABSOLUTE AUTO 0.52 K/mm3 (0.00-0.68); EOSINOPHILS PERCENT AUTO 5 % (0-6); Hematocrit 40.5 % (37.0-53.0); Hemoglobin 12.4 g/dL (13.5-17.5); IMMATURE GRAN ABSOLUTE AUTO 0.04 K/mm3 (0.00-0.10); IMMATURE GRAN PERCENT AUTO 0 % (0-1); LYMPHOCYTES ABSOLUTE AUTO 1.29 K/mm3 (0.84-5.20); LYMPHOCYTES PERCENT AUTO 12 % (21-46); MONOCYTES ABSOLUTE AUTO 1.19 K/mm3 (0.16-1.47); MONOCYTES PERCENT AUTO 11 % (4-13); Mean Corpuscular HGB 24.6 pg (26.0-34.0); Mean Corpuscular HGB Conc 30.6 g/dL (31.5-36.5); Mean Corpuscular Volume 80 fL (80-100); Mean Platelet Volume 9.5 fL (9.1-12.4); NEUTROPHILS ABSOLUTE AUTO 7.46 K/mm3 (1.96-9.15); NEUTROPHILS PERCENT AUTO 71 % (41-73); Platelet Count 327 K/mm3 (150-400); RDW Standard Deviation 49.5 fL (35.1-46.3); Red Blood Cell Count 5.04 M/mm3 (4.30-5.90); White Blood Cell Count 10.56 K/mm3 (4.00-11.30)
[2021-03-12 22:35] LABS: Alanine Aminotransfer (ALT/SGP 26 U/L (12-78); Albumin, Blood 2.5 g/dL (3.4-5.0); Albumin/Globulin Ratio 0.6 (0.8-1.8); Alk Phos 61 U/L (50-136); Anion Gap 3 mmol/L (6-16); Aspartate Aminotrans (AST/SGOT 21 U/L (12-37); Bilirubin, Total 0.2 mg/dL (0.1-1.0); Blood Urea Nitrogen 12 mg/dL (8-24); CO2, Blood 33 mmol/L (21-32); Calcium, Blood 8.8 mg/dL (8.5-10.1); Chloride, Blood 104 mmol/L (98-108); Creatinine, Blood 0.75 mg/dL (0.60-1.20); Globulin, Blood 4.1 g/dL (2.2-4.0); Glomerular Filtration Rate >60 (60-); Glucose, Blood 93 mg/dL (70-99); Potassium, Blood 3.8 mmol/L (3.5-5.5); Sodium, Blood 140 mmol/L (136-145); Total Protein, Blood 6.6 g/dL (6.4-8.2)
== END 2021-03-12 23:53 | disposition home or self-care (01) ==
LOC: ER 19:22
PROVIDERS: Physician Assistant
DX: Z45.2 Encounter for adjustment and management of vascular access device (principal); Z88.2 Allergy status to sulfonamides; Z88.5 Allergy status to narcotic agent; Z88.6 Allergy status to analgesic agent; Z88.8 Allergy status to other drugs, medicaments and biological substances; Z91.02 Food additives allergy status; Z79.899 Other long term (current) drug therapy; K21.9 Gastro-esophageal reflux disease without esophagitis; Z87.891 Personal history of nicotine dependence
CPT/HCPCS: 80053; 85025; C1751; J0295

== ENCOUNTER 2021-03-17 12:12 | Inpatient (IN) | payer OTHER ==
[~2021-03-17] VITALS: Ht 198.1 cm; Wt 102.5 kg
[2021-03-17 14:55] LABS: BASOPHILS ABSOLUTE AUTO 0.04 K/mm3 (0.00-0.23); BASOPHILS PERCENT AUTO 0 % (0-2); EOSINOPHILS ABSOLUTE AUTO 0.24 K/mm3 (0.00-0.68); EOSINOPHILS PERCENT AUTO 3 % (0-6); Hematocrit 40.7 % (37.0-53.0); IMMATURE GRAN ABSOLUTE AUTO 0.04 K/mm3 (0.00-0.10); IMMATURE GRAN PERCENT AUTO 0 % (0-1); LYMPHOCYTES PERCENT AUTO 3 % (21-46); MONOCYTES ABSOLUTE AUTO 1.03 K/mm3 (0.16-1.47); MONOCYTES PERCENT AUTO 11 % (4-13); Mean Corpuscular HGB 24.7 pg (26.0-34.0); Mean Corpuscular HGB Conc 29.5 g/dL (31.5-36.5); Mean Corpuscular Volume 84 fL (80-100); Mean Platelet Volume 9.6 fL (9.1-12.4); NEUTROPHILS PERCENT AUTO 82 % (41-73); Platelet Count 310 K/mm3 (150-400); RDW Coefficient Variation 17.2 % (11.7-14.2); RDW Standard Deviation 52.3 fL (35.1-46.3); Red Blood Cell Count 4.86 M/mm3 (4.30-5.90); White Blood Cell Count 9.35 K/mm3 (4.00-11.30)
[2021-03-17 15:12] LABS: International Normalized Ratio 1.09; Prothrombin Time Results 11.4 Sec (9.7-11.5)
[2021-03-17 15:17] LABS: Alanine Aminotransfer (ALT/SGP 28 U/L (12-78); Albumin, Blood 2.6 g/dL (3.4-5.0); Albumin/Globulin Ratio 0.6 (0.8-1.8); Alk Phos 67 U/L (50-136); Anion Gap 5 mmol/L (6-16); Aspartate Aminotrans (AST/SGOT 28 U/L (12-37); Bilirubin, Total 0.4 mg/dL (0.1-1.0); Blood Urea Nitrogen 11 mg/dL (8-24); Bun/Creatinine Ratio 11.8 (12.0-20.0); CO2, Blood 28 mmol/L (21-32); Chloride, Blood 103 mmol/L (98-108); Creatinine, Blood 0.94 mg/dL (0.60-1.20); Globulin, Blood 4.5 g/dL (2.2-4.0); Glomerular Filtration Rate >60 (60-); Glucose, Blood 96 mg/dL (70-99); Potassium, Blood 3.5 mmol/L (3.5-5.5); Sodium, Blood 136 mmol/L (136-145); Total Protein, Blood 7.1 g/dL (6.4-8.2)
[2021-03-17 15:45] LABS: Influenza A, PCR NEGATIVE (NEGATIVE); Influenza B, PCR NEGATIVE (NEGATIVE); Resp Syncytial Virus, PCR NEGATIVE (NEGATIVE)
[2021-03-17 15:52] LABS: Source, Urine Foley catheter
[2021-03-17 16:06] LABS: SARS-Cov-2 (COVID-19) PCR, MMC POSITIVE (NEGATIVE)
[2021-03-17 16:14] LABS: Appearance, Urine Clear (Clear); Bilirubin, Urine Neg (Neg); Blood, Urine 5+ (Neg); Color, Urine Yellow (P-Yellow); Glucose Qualitative, Urine Neg (Neg); Ketones, Urine Neg (Neg); Leukocyte Esterase, Urine 3+ (Neg); Nitrite, Urine Neg (Neg); Protein, Urine 2+ (Neg); Specific Gravity, Urine 1.015 (1.003-1.022); Urobilinogen, Urine NORM (Normal)
[2021-03-17 16:23] LABS: Bacteria Few /hpf; Red Blood Cells, Urine 50-100 /hpf (0-2); Squamous Epithelial Cells Few /hpf (Few)
[2021-03-17 16:24] LABS: Amorphous Light (0-Heavy); Calcium Oxalate Crystals Rare /hpf; Mucus Light (0-Heavy)
[2021-03-18 05:31] LABS: BASOPHILS ABSOLUTE AUTO 0.04 K/mm3 (0.00-0.23); BASOPHILS PERCENT AUTO 1 % (0-2); EOSINOPHILS ABSOLUTE AUTO 0.04 K/mm3 (0.00-0.68); EOSINOPHILS PERCENT AUTO 1 % (0-6); Hematocrit 39.9 % (37.0-53.0); Hemoglobin 11.8 g/dL (13.5-17.5); IMMATURE GRAN ABSOLUTE AUTO 0.01 K/mm3 (0.00-0.10); IMMATURE GRAN PERCENT AUTO 0 % (0-1); LYMPHOCYTES ABSOLUTE AUTO 0.32 K/mm3 (0.84-5.20); LYMPHOCYTES PERCENT AUTO 6 % (21-46); MONOCYTES ABSOLUTE AUTO 1.04 K/mm3 (0.16-1.47); MONOCYTES PERCENT AUTO 18 % (4-13); Mean Corpuscular HGB 24.4 pg (26.0-34.0); Mean Corpuscular HGB Conc 29.6 g/dL (31.5-36.5); Mean Corpuscular Volume 82 fL (80-100); Mean Platelet Volume 9.5 fL (9.1-12.4); NEUTROPHILS ABSOLUTE AUTO 4.28 K/mm3 (1.96-9.15); NEUTROPHILS PERCENT AUTO 75 % (41-73); Platelet Count 265 K/mm3 (150-400); RDW Coefficient Variation 17.2 % (11.7-14.2); RDW Standard Deviation 51.8 fL (35.1-46.3); Red Blood Cell Count 4.84 M/mm3 (4.30-5.90); White Blood Cell Count 5.73 K/mm3 (4.00-11.30)
[2021-03-18 06:07] LABS: Alanine Aminotransfer (ALT/SGP 31 U/L (12-78); Albumin, Blood 2.5 g/dL (3.4-5.0); Albumin/Globulin Ratio 0.6 (0.8-1.8); Alk Phos 61 U/L (50-136); Anion Gap 9 mmol/L (6-16); Aspartate Aminotrans (AST/SGOT 37 U/L (12-37); Bilirubin, Total 0.3 mg/dL (0.1-1.0); Blood Urea Nitrogen 8 mg/dL (8-24); Bun/Creatinine Ratio 8.9 (12.0-20.0); CO2, Blood 25 mmol/L (21-32); Calcium, Blood 8.4 mg/dL (8.5-10.1); Chloride, Blood 104 mmol/L (98-108); Globulin, Blood 4.2 g/dL (2.2-4.0); Glomerular Filtration Rate >60 (60-); Glucose, Blood 94 mg/dL (70-99); Sodium, Blood 138 mmol/L (136-145); Total Protein, Blood 6.7 g/dL (6.4-8.2)
--- NOTE | 2021-03-18 06:30 | NUR ---
PT ADMITTED TO ROOM ICU 8 FROM ED. SLIDE TRANSFERRED TO BED FROM [facility]. PT VERY ILL APPEARING. THIS RN HAD SEEN PT IN ED APPROX [address] POWERGLIDE IN RIGHT UPPER ARM FOR ANTIBIOTIC THERAPY AT [facility]. PT 92 PERCENT ON ROOM AIR. HE REQUESTED TO HAVE OXYGEN ON DURING NIGHT. DID PLACE O2 TO 1 L/M. PT MAINTAINS SATURATIONS > 90 PERCENT. PT ALERT AND MOSTLY ORIENETED. DOES REPEAT HIMSELF FREQUENTLY IF HE FELT HE WAS NOT BEING HEARD. COLOSTOMY WITH LIQUID STOOL. CHRONIC CLEARY CATHETER. UA SENT FROM ED REVEALS UTI. PT RECEIVES VANCOMYCIN WITHOUT S/S ADVERSE REACTIONS. WILL CONTINUE TO MONITOR PT, AND WILL REPORT OFF TO ONCOMING RN.
--- NOTE | 2021-03-18 08:00 | NUR ---
ASSUMING PT CARE: PT RESTING IN BED, AWAKES TO VERB STIM. ORIENTED, SLOW TO RESPOND & ABLE TO FOLLOW SOME SIMPLE COMMANDS. PT HAS Hx OF MS & HAS WEAKNESS @ BASELINE. PT REFUSES POSITION CHANGE @ THIS TIME, WILL REEVALUATE LATER ON. SEE INITIAL SHIFT DOCUMENTATION FOR FULL ASSESSMENT.
--- NOTE | 2021-03-18 15:30 | NUR ---
UPDATE: HYPOTENSION. PT CONTINUES TO BE HYPOTENSIVE W/ MAPs 58-67, WHEN AWAKE MAPs IMPROVE TO 60s. PT DENIES ANY COMPLAINTS & APPEARS ASYMPTOMATIC. DR. SAM UPDATED & DISCUSSED ADDITIONAL PO MIDODRINE vs. FLUID BOLUS. ORDERS RECEIVED TO GIVE ADDITIONAL MIDODRINE DOSE NOW & IF PT DOES NOT IMPROVE, CALL FOR BOLUS ORDERS. ORDERS PLACED. PT TO BE MEDICATED SHORTLY.
--- NOTE | 2021-03-18 18:21 | NUR ---
SHIFT SUMMARY: PT RESTING SUPINE IN BED, WATCHING TV. CONTINUES TO RESPOND APPROPRIATELY IN 1-2 WORD SENTENCES. HYPOTENSION APPEARS TO BE IMPROVING, MAPs HOLDING 70s AFTER MIDODRINE & 250ml LR BOLUS. APPROX 1250ml LIQUID OUTPUT FROM ILEOSTOMY & 250ml UOP. ILEOSTOMY DRESSING CHANGED TODAY, BUT CONTINUES TO LEAK. DRESSINGS PLACED TO ABSORB LIQUIDS. ADDITIONAL DRESSING CHANGE WITHHELD TO PRESERVE SKIN INTEGRITY & PRESENT DRESSING IS STILL INTACT. ATTEMPTED TO WEAN PT OFF O2, SATS DEC TO 88%. HE REMAINS >95% ON 2L/min. WOUNDS TO BLE BANDAGED & DOCUMENTED. WILL CONTINUE TO MONITOR UNTIL REPORT OFF TO ONCOMING RN.
--- NOTE | 2021-03-18 19:30 | NUR ---
ASSUMED CARE PATIENT LYINGIN BED AWAKE AND WATCHING TELEVISION. 2LPM VIA NC IN PLACE W/ SPO2 IN MID TO HIGH 90'S. PATIENT TRACKS TO SOUND AND IS A&O X 4. FOLLOWS COMMANDS, WEAK PRINTING PRESSMAN STRENGTH REESE HANDS, NO MOVEMENT IN BLE D/T MS. PATIENT WAS ABLE TO TAKE MEDICATIONS IN APPLESAUCE W/ APPROPRIATE SWALLOWING. CLEARY PATENT AND DRAINING YELLOW CLOUDY URINE W/ SEDIMENT TO GRAVITY. ILEOSTOMY IN PLACE W/ YELLOW PASTY DISCHARGE AND FULL PILL IN BAG. PG TO ANANDA NAD 20G IN LT HAND PATENT. REPORT COMPLETED W/ DAYSHIFT RN
--- NOTE | 2021-03-19 00:23 | NUR ---
ADMIT NOTE PT TRANSFERRED FROM ICU AT 2225. PT COVID POSITIVE AND UROSEPTIC. PT HAS CHRONIC CLEARY THAT IS DRAINING CLOUDY YELLOW URINE WITH SOME SEDIMENT. PT HAS ILEOSTOMY. PT ON 2L O2 VIA NC AND IS ON TELEMETRY. PT HAS HX OF MS AND IS UNABLE TO MOVE HIS LEGS. CAN MOVE HIS HANDS, ARMS, AND HEAD, BUT HANDS ARE TREMULOUS. PT HAS RELATIVELY LOW BP, 86/59 BEFORE TRANSFER. PT TAKES MIDRODINE FOR THIS ISSUE. PT IS DNR STATUS. PT IS PLEASANT AND COOPERATIVE WITH CARE. PT IS SOMETIMES SLOW TO ANSWER QUESTIONS, BUT IS A&O X 3. PT IS NPO, BUT WOULD LIKE TO BE ABLE TO HAVE ENSURE BEVERAGES. HE HAS CHRONIC BILATERAL LEG WOUNDS AND A TOE WOUND. PICTURES IN CHART PER SEISMOGRAPH RECORDERJULIETH ZUÑIGA. PT HAS R UPPER ARM POWERGLIDE THAT DOES NOT FLUSH, BUT HAS A L ARM IV THAT WORKS WELL.
--- NOTE | 2021-03-19 04:32 | NUR ---
SHIFT SUMMARY NO ACUTE CHANGES FROM ADMIT NOTE
--- NOTE | 2021-03-19 04:41 | NUR ---
PT SINUS RHYTHM 59 PER [facility]ARE PHYSICAL THERAPIST
[2021-03-19 05:08] LABS: BASOPHILS ABSOLUTE AUTO 0.01 K/mm3 (0.00-0.23); BASOPHILS PERCENT AUTO 1 % (0-2); EOSINOPHILS PERCENT AUTO 0 % (0-6); Hemoglobin 12.1 g/dL (13.5-17.5); IMMATURE GRAN PERCENT AUTO 0 % (0-1); LYMPHOCYTES ABSOLUTE AUTO 0.82 K/mm3 (0.84-5.20); LYMPHOCYTES PERCENT AUTO 38 % (21-46); MONOCYTES ABSOLUTE AUTO 0.61 K/mm3 (0.16-1.47); MONOCYTES PERCENT AUTO 28 % (4-13); Mean Corpuscular HGB 24.7 pg (26.0-34.0); Mean Corpuscular HGB Conc 30.3 g/dL (31.5-36.5); Mean Corpuscular Volume 82 fL (80-100); Mean Platelet Volume 9.4 fL (9.1-12.4); NEUTROPHILS ABSOLUTE AUTO 0.72 K/mm3 (1.96-9.15); NEUTROPHILS PERCENT AUTO 33 % (41-73); Platelet Count 278 K/mm3 (150-400); RDW Coefficient Variation 17.4 % (11.7-14.2); RDW Standard Deviation 51.6 fL (35.1-46.3); White Blood Cell Count 2.16 K/mm3 (4.00-11.30)
[2021-03-19 05:34] LABS: Alanine Aminotransfer (ALT/SGP 36 U/L (12-78); Albumin, Blood 2.5 g/dL (3.4-5.0); Albumin/Globulin Ratio 0.6 (0.8-1.8); Alk Phos 59 U/L (50-136); Anion Gap 6 mmol/L (6-16); Aspartate Aminotrans (AST/SGOT 48 U/L (12-37); Bilirubin, Total 0.3 mg/dL (0.1-1.0); Blood Urea Nitrogen 15 mg/dL (8-24); Bun/Creatinine Ratio 20.8 (12.0-20.0); CO2, Blood 28 mmol/L (21-32); Calcium, Blood 8.6 mg/dL (8.5-10.1); Chloride, Blood 107 mmol/L (98-108); Creatinine, Blood 0.72 mg/dL (0.60-1.20); Globulin, Blood 4.3 g/dL (2.2-4.0); Glomerular Filtration Rate >60 (60-); Glucose, Blood 96 mg/dL (70-99); Magnesium, Blood 2.2 mg/dL (1.6-2.4); Potassium, Blood 3.8 mmol/L (3.5-5.5); Sodium, Blood 141 mmol/L (136-145); Total Protein, Blood 6.8 g/dL (6.4-8.2); Vancomycin, Trough 19.9 ug/mL (5.0-10.0)
--- NOTE | 2021-03-19 17:43 | NUR ---
SHIFT SUMMARY 65 M ADMITTED FOR UROSEPSIS AND COVID +. PT RESIDES AT [facility]. PT HAS HX OF MS AND IN BEDBOUND WITH CHRONIC CLEARY. CLEARY CATH CHANGED TODAY AND URINE CX SENT PER MD ORDER. ST TIM AT BEDSIDE COMPLETED AND PT STARTED ON SOFT DIET AND TOLERATING WELL. NO OTHER CHANGES TO REPORT
--- NOTE | 2021-03-19 22:00 | NUR ---
POWERGLIDE FLOAT RN IN TO ASSESS. STATES WAS ABLE TO FLUSH AND DRAW BLOOD. CHANGED CAPS AND LOCKED LINES.
--- NOTE | 2021-03-20 03:37 | NUR ---
SHIFT SUMMARY A/O, ABLE TO MAKE NEEDS KNOWN. SLOW TO RESPOND AT TIMES. COOPERATIVE WITH CARE. REPOSITION TOLERATED. IV ABX INFUSED. CLEARY SECURE, PATENT AND DRAINING TO GRAVITY. TELE RUNNING SR IN 60s PER FOREIGN EXCHANGE POSITION CLERK. ILEOSTOMY OUTPUT WATERY BROWN. NON-PRESSURE BOOTIES BLE. APPEARED TO REST SOME. NO ACUTE CHANGES NOTED. BED REMAINS IN LOWEST POSITION. CALL LIGHT AND TOUCH LIGHT WITHIN REACH. REPORT TO ONCOMING RN.
[2021-03-20 09:14] LABS: Albumin, Blood 2.9 g/dL (3.4-5.0); Anion Gap 3 mmol/L (6-16); Blood Urea Nitrogen 20 mg/dL (8-24); Bun/Creatinine Ratio 22.2 (12.0-20.0); CO2, Blood 31 mmol/L (21-32); Calcium, Blood 8.9 mg/dL (8.5-10.1); Chloride, Blood 108 mmol/L (98-108); Glomerular Filtration Rate >60 (60-); Glucose, Blood 95 mg/dL (70-99); Phosphorus, Blood 2.7 mg/dL (2.5-4.9); Potassium, Blood 3.6 mmol/L (3.5-5.5); Sodium, Blood 142 mmol/L (136-145)
--- NOTE | 2021-03-20 18:31 | NUR ---
SHIFT SUMMARY 65 M ADMITTED FOR UROSEPSIS AND COVID +. PT RESIDES AT [facility]. PT HAS HX OF MS AND IS BEDBOUND WITH CHRONIC CLEARY. PT HAS LIMITED MOBILITY, REPOSTITIONING DONE FREQUENTLY T/O DAY & SOFT TOUCH CALL LIGHT IN USE. PT IS A&O, PLEASANT AND COOPERATIVE WITH CARE. NO OTHER CHANGES TO REPORT.
--- NOTE | 2021-03-21 05:01 | NUR ---
SHIFT SUMMARY PT SLEPT OFF AND ON WHEN NOT BEING WOKEN BY STAFF. PT HAS HX OF MS. BEDRIDDEN AT BASELINE. REQUIRES ASSISTANCE WITH ALL NEEDS. SOFT TOUCH CALL LIGHT IN PLACE. CLEARY CATHETER PATENT AND DRAINING. ILEOSTOMY IN PLACE. STOOL BROWN AND UNFORMED. REPORTED TO BE THICKER THAN NIGHT BEFORE. TRIPLE ANTIBIOTIC OINTMENT PLACED TO PENIS AT CATHETER INSERTION SITE. NO COMPLAINTS OF PAIN. PT REPOSITIONED THROUGHOUT THE NIGHT. VITAL SIGNS STABLE. NO ACUTE CHANGES THIS EVENING.
[2021-03-21 06:26] LABS: Vancomycin, Trough 22.3 ug/mL (5.0-10.0)
[2021-03-21 08:45] LABS: BASOPHILS PERCENT AUTO 0 % (0-2); EOSINOPHILS ABSOLUTE AUTO 0.02 K/mm3 (0.00-0.68); EOSINOPHILS PERCENT AUTO 1 % (0-6); Hematocrit 38.2 % (37.0-53.0); Hemoglobin 11.3 g/dL (13.5-17.5); IMMATURE GRAN ABSOLUTE AUTO 0.01 K/mm3 (0.00-0.10); IMMATURE GRAN PERCENT AUTO 0 % (0-1); LYMPHOCYTES ABSOLUTE AUTO 1.53 K/mm3 (0.84-5.20); LYMPHOCYTES PERCENT AUTO 35 % (21-46); MONOCYTES PERCENT AUTO 14 % (4-13); Mean Corpuscular HGB 24.7 pg (26.0-34.0); Mean Corpuscular HGB Conc 29.6 g/dL (31.5-36.5); Mean Corpuscular Volume 84 fL (80-100); Mean Platelet Volume 9.2 fL (9.1-12.4); NEUTROPHILS ABSOLUTE AUTO 2.26 K/mm3 (1.96-9.15); NEUTROPHILS PERCENT AUTO 51 % (41-73); Platelet Count 293 K/mm3 (150-400); RDW Coefficient Variation 17.4 % (11.7-14.2); RDW Standard Deviation 53.3 fL (35.1-46.3); Red Blood Cell Count 4.57 M/mm3 (4.30-5.90); White Blood Cell Count 4.42 K/mm3 (4.00-11.30)
--- NOTE | 2021-03-21 18:18 | NUR ---
SHIFT SUMMARY/ DISCHARGE NOTE D/C ORDERS RECIEVED AND REVIEWED. CARE MGMT ARRANGED FOR PT TO RETURN TO [facility]. REVIEWED D/C PLANS WITH PT AND REPORT CALLED TO CHARLES CLANCY AT [facility]. IV AND POWERGLIDE REMOVED INTACT WITHOUT DIFFICULTY AND PT TOLERATED WELL. PT AWAITING ON MEDICAL TRANSPORT VIA GURNEY BY AMBULANCE TO [facility].
== END 2021-03-21 18:38 | DRG 871 ==
LOC: ER 12:12 → ERHOLD 17:27 → ICUW 17:27 → ERHOLD 17:28 → ICUW 03-18 02:07 → MEDS 03-18 22:31 → ENPENDDIS 03-21 11:07 → MEDS 03-21 18:38
PROVIDERS: Family Medicine; Internal Medicine; Physician Assistant; Student in an Organized Health Care Education/Training Program; ADMIT Internal Medicine
PROC: 8E0ZXY6 Isolation (ICD-10-PCS; principal; 2021-03-17)
PROC: 3E0333Z Introduction of Anti-inflammatory into Peripheral Vein, Percutaneous Approach (ICD-10-PCS; 2021-03-18)
PROC: XW033E5 Introduction of Remdesivir Anti-infective into Peripheral Vein, Percutaneous Approach, New Technology Group 5 (ICD-10-PCS; 2021-03-18)
PROC: XW0DXM6 Introduction of Baricitinib into Mouth and Pharynx, External Approach, New Technology Group 6 (ICD-10-PCS; 2021-03-18)
DX: A41.89 Other specified sepsis (principal); U07.1 COVID-19; J12.82 Pneumonia due to coronavirus disease 2019; J96.01 Acute respiratory failure with hypoxia; L03.115 Cellulitis of right lower limb; L03.116 Cellulitis of left lower limb; B37.49 Other urogenital candidiasis; K21.9 Gastro-esophageal reflux disease without esophagitis; Z66 Do not resuscitate; R65.20 Severe sepsis without septic shock; G35 Multiple sclerosis; N31.9 Neuromuscular dysfunction of bladder, unspecified; F03.90 Unspecified dementia, unspecified severity, without behavioral disturbance, psychotic disturbance, mood disturbance, and anxiety; E86.0 Dehydration; E66.9 Obesity, unspecified; I25.10 Atherosclerotic heart disease of native coronary artery without angina pectoris; R33.9 Retention of urine, unspecified; F41.8 Other specified anxiety disorders; Z68.39 Body mass index [BMI] 39.0-39.9, adult; Z87.891 Personal history of nicotine dependence; Z86.711 Personal history of pulmonary embolism; Z93.2 Ileostomy status; Z98.890 Other specified postprocedural states; Z86.718 Personal history of other venous thrombosis and embolism; Z88.2 Allergy status to sulfonamides; Z88.5 Allergy status to narcotic agent; Z88.6 Allergy status to analgesic agent; Z88.8 Allergy status to other drugs, medicaments and biological substances; Z79.01 Long term (current) use of anticoagulants; Z79.899 Other long term (current) drug therapy
CPT/HCPCS: 0241U; 36415; 71045; 80053; 80069; 80202; 81001; 83605; 83735; 83880; 84145; 85025; 85610; 85730; 87040; 87086; 87106; 92610; 93005; 93010; 96365; 96367; 96375; 99285-25; A9270; C9399; J0248; J0295; J0696; J1100; J2543; J3370; J7030; J7050; J7120

== ENCOUNTER → 2021-03-27 | Outpatient (CLI) | payer OTHER ==
[~2021-03-27] MED LIST changes: +ACTIGALL300 MG PO; +Acetaminophen650 M1 PO; +CARB10OTL BOTHEARS; +ELIQUIS5 M2 PO; +PANT20 PO
[2021-03-27 14:01] LABS: C DIFFICILE DNA NEGATIVE (Negative)
== END | disposition home or self-care (01) ==
LOC: LAB RH 08:30 → EDSTATUS 09:57
PROVIDERS: Internal Medicine
DX: A04.72 Enterocolitis due to Clostridium difficile, not specified as recurrent (principal); Z93.2 Ileostomy status
CPT/HCPCS: 87493

== ENCOUNTER 2021-03-31 21:01 | Inpatient (IN) | payer OTHER ==
[~2021-03-31] VITALS: Ht 198.1 cm; Wt 98.8 kg
[~2021-03-31 21:01] MED LIST changes: -ACTIGALL300 MG PO; -Acetaminophen650 M1 PO; -CARB10OTL BOTHEARS; -PANT20 PO
[2021-03-31 22:26] LABS: BASOPHILS ABSOLUTE AUTO 0.02 K/mm3 (0.00-0.23); BASOPHILS PERCENT AUTO 0 % (0-2); EOSINOPHILS ABSOLUTE AUTO 0.03 K/mm3 (0.00-0.68); EOSINOPHILS PERCENT AUTO 0 % (0-6); Hematocrit 52.8 % (37.0-53.0); Hemoglobin 15.4 g/dL (13.5-17.5); IMMATURE GRAN ABSOLUTE AUTO 0.03 K/mm3 (0.00-0.10); IMMATURE GRAN PERCENT AUTO 0 % (0-1); LYMPHOCYTES ABSOLUTE AUTO 0.56 K/mm3 (0.84-5.20); LYMPHOCYTES PERCENT AUTO 6 % (21-46); MONOCYTES ABSOLUTE AUTO 1.16 K/mm3 (0.16-1.47); MONOCYTES PERCENT AUTO 13 % (4-13); Mean Corpuscular HGB 24.1 pg (26.0-34.0); Mean Corpuscular HGB Conc 29.2 g/dL (31.5-36.5); Mean Corpuscular Volume 83 fL (80-100); Mean Platelet Volume 9.9 fL (9.1-12.4); NEUTROPHILS ABSOLUTE AUTO 7.26 K/mm3 (1.96-9.15); NEUTROPHILS PERCENT AUTO 80 % (41-73); Platelet Count 313 K/mm3 (150-400); RDW Coefficient Variation 17.4 % (11.7-14.2); RDW Standard Deviation 50.4 fL (35.1-46.3); Red Blood Cell Count 6.38 M/mm3 (4.30-5.90); White Blood Cell Count 9.06 K/mm3 (4.00-11.30)
[2021-03-31 22:43] LABS: Alanine Aminotransfer (ALT/SGP 35 U/L (12-78); Albumin/Globulin Ratio 0.6 (0.8-1.8); Alk Phos 60 U/L (50-136); Anion Gap 7 mmol/L (6-16); Aspartate Aminotrans (AST/SGOT 38 U/L (12-37); Bilirubin, Total 0.3 mg/dL (0.1-1.0); Blood Urea Nitrogen 37 mg/dL (8-24); Bun/Creatinine Ratio 35.2 (12.0-20.0); CO2, Blood 32 mmol/L (21-32); Calcium, Blood 9.7 mg/dL (8.5-10.1); Chloride, Blood 106 mmol/L (98-108); Creatinine, Blood 1.05 mg/dL (0.60-1.20); Globulin, Blood 5.2 g/dL (2.2-4.0); Glomerular Filtration Rate >60 (60-); Glucose, Blood 107 mg/dL (70-99); Potassium, Blood 4.3 mmol/L (3.5-5.5); Sodium, Blood 145 mmol/L (136-145); Total Protein, Blood 8.2 g/dL (6.4-8.2)
[2021-03-31 22:55] LABS: Source, Urine Foley catheter
[2021-03-31 22:56] LABS: Bilirubin, Urine Neg (Neg); Blood, Urine 5+ (Neg); Color, Urine Yellow (P-Yellow); Glucose Qualitative, Urine Neg (Neg); Ketones, Urine Neg (Neg); Leukocyte Esterase, Urine 3+ (Neg); Nitrite, Urine Neg (Neg); Protein, Urine 3+ (Neg); Urobilinogen, Urine NORM (Normal)
[2021-03-31 23:15] LABS: Appearance, Urine Cloudy (Clear)
[2021-03-31 23:17] LABS: Bacteria Many /hpf; Red Blood Cells, Urine 50-100 /hpf (0-2); Squamous Epithelial Cells Few /hpf (Few); White Blood Cells, Urine 25-50 /hpf (0-5)
[2021-03-31 23:18] LABS: Transitional Epithelial Cells Few /hpf (0-Rare)
[2021-04-01] MEDS ORDERED: Florastor250 MG PO (02:48)
[2021-04-01] MEDS ORDERED: AMOCLA875 PO (02:48)
--- NOTE | 2021-04-01 03:39 | NUR ---
AWAITING NEW STAT BNP RESULTS, NEED ONE AFTER 3L ORDERS, NEW ORDER IN.
--- NOTE | 2021-04-01 03:40 | NUR ---
PATIENT ARRIVED AT 0130 VIA STRETCHER ED, ALERT TO SELF ONLY OPENS EYES TO VERBAL NONSUSTANING > 10 SECONDS, UNABLE TO FOLLOW COMMANDS, MOANS WITH MOVEMENT, LUNGS WET WITH NOTED CRACKLES AND RHONCHI AUDITORY NONAUSCULATION OF GURGLING, SHALLOW BREATHES RR 22-29, ON 2L NC SAT 85% INCREASED O2 4L NC SAT 97-98%, HOB AT 35 DEGREES, ABDOMEN IS SOFT DISTENDED, COLOSTOMY 2 APPLIANCE INTACK EMPTIED 150ML BROWN LIQUID STOOL AND SKIN INTACK. PENIS GLAN IS SPLIT TO THE SHAFT RED BEEFY WOUND BED LEAKING AT CLEARY CATHETER, ED REPORTED CHANGED CATHETER 16FR COUDE DRAINING DARK YELLOW SEDIMENT DRAINAGE, BLE NESBITT WOUNDS AND WOUND TO COCCYX PICTURES IN CHART, IV IN THE RAC RUNNING VANCOMYCIN AND NORMAL SALINE, FLUIDS ON HOLD PENDING LABS STAT BNP AND LACTATE, LACTATE CAME BACK AT CRITICAL WITH INCREASE VALUE OF 3.0 MD AWARE, CHARGE AWARE. NOTED FOOT DROP BILATERAL PATIENT IS WHEELCHAIR BOUND AT BASELINE IN A NONLIFT ROOM POSSIBLY WILL NEED TO BE CHANGE 98.6 KG ACTUAL WEIGHT. PATIENT OVERAL IS RED IN FACIAL REGION, NECK AND CHEST DIAPHORETIC AND WARM TO THE TOUCH, MONITORING TEMPERATURE. PATIENT DIDN'T PASS BEDSIDE SWALLOW AND HAD APAP 650MG PO CHANGED TO RECTAL. AWAITING LAB ORDERS RESULT TO CALL MD TO SEE IF WE NEED TO CONTINUE FLUIDS, PATIENT ALSO RECEIVED LASIX 40MG IVP.
[2021-04-01 09:49] LABS: BASOPHILS ABSOLUTE AUTO 0.01 K/mm3 (0.00-0.23); BASOPHILS PERCENT AUTO 0 % (0-2); EOSINOPHILS ABSOLUTE AUTO 0.06 K/mm3 (0.00-0.68); EOSINOPHILS PERCENT AUTO 1 % (0-6); Hematocrit 48.2 % (37.0-53.0); IMMATURE GRAN ABSOLUTE AUTO 0.03 K/mm3 (0.00-0.10); IMMATURE GRAN PERCENT AUTO 0 % (0-1); LYMPHOCYTES ABSOLUTE AUTO 0.58 K/mm3 (0.84-5.20); LYMPHOCYTES PERCENT AUTO 8 % (21-46); MONOCYTES ABSOLUTE AUTO 1.44 K/mm3 (0.16-1.47); MONOCYTES PERCENT AUTO 20 % (4-13); Mean Corpuscular HGB 24.3 pg (26.0-34.0); Mean Corpuscular Volume 84 fL (80-100); Mean Platelet Volume 9.7 fL (9.1-12.4); NEUTROPHILS ABSOLUTE AUTO 5.01 K/mm3 (1.96-9.15); NEUTROPHILS PERCENT AUTO 70 % (41-73); Platelet Count 245 K/mm3 (150-400); Red Blood Cell Count 5.77 M/mm3 (4.30-5.90); White Blood Cell Count 7.13 K/mm3 (4.00-11.30)
--- NOTE | 2021-04-01 10:04 | NUR ---
NS INFUSING PER EMAR AT 100ML/HR IN RIGHT AC
[2021-04-01 10:11] LABS: Anion Gap 6 mmol/L (6-16); Blood Urea Nitrogen 27 mg/dL (8-24); Bun/Creatinine Ratio 28.2 (12.0-20.0); CO2, Blood 32 mmol/L (21-32); Calcium, Blood 8.3 mg/dL (8.5-10.1); Chloride, Blood 110 mmol/L (98-108); Creatinine, Blood 0.96 mg/dL (0.60-1.20); Glomerular Filtration Rate >60 (60-); Glucose, Blood 97 mg/dL (70-99); Potassium, Blood 3.4 mmol/L (3.5-5.5); Sodium, Blood 148 mmol/L (136-145)
--- NOTE | 2021-04-01 12:23 | NUR ---
CARE NOTE PT HAS BEEN MORE ALERT AND ANSWERING QUESTIONS APPROPRIATELY. STILL FALLS ASLEEP WHEN NOT BEING PROVIDED PATIENT CARE BUT CAN HOLD A CONVERSATION WITH SHORT ANSWERS WHILE REMAINING AWAKE. WILL CONTINUE TO MONITOR MENTATION/ALERTNESS.
--- NOTE | 2021-04-01 17:02 | NUR ---
SHIFT ASSESSMENT PT IS ALERT TO SELF, PLACE, TIME. HE IS ABLE TO RELAY THAT HE LIVES AT [facility] AND HAS A DAUGHTER IN [place]. HE HAS BEEN ABLE TO USE PAD CALL LIGHT APPROPRIATELY TO MAKE NEEDS KNOWN. SPO2 HAS MAINTAINED >93% VIA ROOM AIR SINCE TITRATING O2 THIS AFTERNOON AT APPROX 1500. VITAL SIGNS HAVE BEEN STABLE WITH SBP INCREASING FROM 90'S TO 102. PT DENIED CHEST PAIN/PRESSURE BUT REPORTED THAT RIGHT EAR IS ACHING, MADE AWARE. ILLEOSTOMY BAG LOCATED IN RIGHT MID ABD HAS REMAINED INTACT, SKIN AROUND OSTOMY BAG IS DRY/CLEAN/INTACT. 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 VENTRAL SIDE OF PENIS NEAR THE HEAD HAS WOUND, SEE CHART. PER REPORT CATHETER WAS LEAKY BUT NO LEAKING HAS BEEN NOTED DURING THIS SHIFT, PT BRIEFS HAVE REMAINED DRY. SEE CHART FOR WOUND ON COCCYX. COCCYX IS COVERED WITH MEPILEX DRESSING, DRESSING IS DRY/CLEAN/INTACT. PT SHINS HAVE SCATTERED SCABS/ABRASIONS, SEE CHART. SHINS ARE COVERED WITH GAUZE DRESSING AND IS DRY/CLEAN/INTACT. IV IN RIGHT AC IS INFUSING NS PER EMAR ORDERS AT 150ML/HR. THIS NURSE DID BEDSIDE SWALLOW EVAL THIS AFTERNOON AND PT FAILED. MADE AWARE. THIS NURSE ATTEMPTED TO REACH SPEECH THERAPIST LEONARDO KNOWLES AND WAS UNABLE TO REACH, MESSAGE LEFT FOR SPEECH EVAL REQUEST IN ORDER TO CHANGE NPO STATUS PT CAN TOLERATE. PT REMAINS NPO FOR NOW. WILL PASS ONTO REPORT NEED FOR EVALUATION FOR SPEECH THERAPY. TELE MONITORING IS IN PLACE AND PT IS IN SINUS RYTHM PER REPORT. WILL CONTINUE TO MONITOR UNTIL REPORT GIVEN, TAB CALL LIGHT IN REACH.
--- NOTE | 2021-04-01 18:32 | NUR ---
CARE NOTE PT GAVE THIS NURSE VERBAL CONSENT TO PROVIDE UPDATES TO TOMAS VARGAS NUMBER IN CHART
--- NOTE | 2021-04-02 05:34 | NUR ---
SHIFT SUMMARY PATIENT IS ALERT AND ORIENTED X3, COULD NOT TELL ME THE MONTH AND KEPT REPEATING SELF. ABLE TO ELECTRICIAN HELPER POWERHOUSE WITH RIGHT HAND, NO MOVEMENT IN ANY OTHER EXTREMITY. 02 SATS 97% ON 1L VIA NC. LUNGS CLEAR TO DIMINISHED. HR SR @90s. BP STABLE. CLEARY DRAINING TO GRAVITY, CATH CARE DONE TWICE. OSTOMY REMAINS C/D/I, SKIN WNL AROUND OSTOMY. TURNED PATIENT Q2 HOURS, CHANGED MEPILEX ON COCCYX. TOUCH CALL LIGHT IN REACH.
[2021-04-02 09:38] LABS: Anion Gap 7 mmol/L (6-16); Blood Urea Nitrogen 27 mg/dL (8-24); Bun/Creatinine Ratio 36.8 (12.0-20.0); CO2, Blood 27 mmol/L (21-32); Calcium, Blood 8.2 mg/dL (8.5-10.1); Chloride, Blood 118 mmol/L (98-108); Creatinine, Blood 0.73 mg/dL (0.60-1.20); Glomerular Filtration Rate >60 (60-); Glucose, Blood 94 mg/dL (70-99); Potassium, Blood 3.3 mmol/L (3.5-5.5); Sodium, Blood 152 mmol/L (136-145)
[2021-04-02] MEDS ORDERED: ACTIGALL300 MG PO (14:54)
[2021-04-02 15:12] LABS: Anion Gap 5 mmol/L (6-16); Blood Urea Nitrogen 23 mg/dL (8-24); Bun/Creatinine Ratio 33.1 (12.0-20.0); CO2, Blood 27 mmol/L (21-32); Calcium, Blood 8.3 mg/dL (8.5-10.1); Chloride, Blood 119 mmol/L (98-108); Creatinine, Blood 0.69 mg/dL (0.60-1.20); Glomerular Filtration Rate >60 (60-); Glucose, Blood 110 mg/dL (70-99); Sodium, Blood 151 mmol/L (136-145)
--- NOTE | 2021-04-02 16:07 | NUR ---
END OF SHIFT SUMMARY: OF NOTE MANSOOR PASSED ST SWALLOW EVAL, THIN LIQUIDS, SINGLE SIPS THROUGH STRAW, MEDS CURSHED IN APPLESAUCE OR PUDDING, UPRIGHT ALERT FEEDER, ORAL CARE 3X A DAY. PUREE DIET. HOSP INFORMED, AND WHEN I INFORMED HER OF THIS I ENSURED THAT HE WOULD BE ABLE TO HAVE DAILY MORNING MEDS, SINCE THEY HAVE BEEN HELD FOR MULTIPLE DAYS, PATIENT HAS BEEN REPOSITIONED Q1.5 HRS, FLUIDS CUT DOWN TO 75 ML/HR, PER DR. June DENIES CHEST PAIN, HAS WEAK LIMITED MOVEMENT OF THE RIGHT ARM AND HIS RIGHT NECK, OTHER MUSCLE TENSE AT TIMES AND LEGS ARE FLACCID. WOUND PHOTOS IN THE CHART, HAS COMPLETELY BLOCKED EARS WITH CERUMEN, DEBROX HAS BEEN ORDERED. AMNSOOR HAS BEEN ON 1L NC, FOR COMFORT, MOST OF THE TIME NC IS OUT OF PATINETS NOSE AND IS GREATER THAN 96%. PATIENT HAS HAD MULTIPLE ROUNDS OF ZENAIDA CARE, ILEOSTOMY BAG AND PASTE CHANGED, LINENS AND LOWER PARTIAL BED BATH WITH HELP OF STRAWHAT BLOCKING OPERATOR, MANSOOR INFUSED VANCO 1250MG, AND ROCEPHIN IVP. WILL CONTINUE TO MONITOR.
--- NOTE | 2021-04-02 23:33 | NUR ---
Assumed care of pt at 1900. A/Ox4, but slow to respond. Patient states he is CHENEGA. No response for L arm, L & R leg strength. Minor strength in R hand and uses easy touch light to make needs known. Maintains above 95% on 1-2 L NC. LS clear upper and dim at bases. Occasional productive cough, however patient swallows the sputum. Swallow precautions in place. SR 110-120's on tele, BP stable. Minimal +1 BL feet edema. Ileostomy draining moderate amounts of liquid brown stool. Stoma excoriated, but still pink in color. Bag change performed d/t leaking. Moy draining to gravity dark/tea colored urine with sediment. Patient is red in color, with mild fever. BL shins, R big toe, and dorsal penis wounds noted and pictures in chart. Partial thickness pressure wound on coccyx, covered with mepilex. Patient has flat affect. Will update as changes occur.
[2021-04-03 05:48] LABS: Vancomycin, Trough 16.6 ug/mL (5.0-10.0)
--- NOTE | 2021-04-03 17:27 | NUR ---
SHIFT SUMMARY PATIENT TRANSFERRED FROM PCU AT 1600. PATIENT SETTLED INTO ROOM. PATIENT DENIES PAIN, NAUSEA, AND SHORTNESS OF BREATH. PATIENT IS A LIFT TRANSFER AD 2 PERSON FOR REPOSITIONING. PATIENT HAS A CHRONIC CLEARY THAT IS PATENT AND DRAINING TO GRAVITY. PATIENT CAN ONLY MOVE HIS RIGHT ARM. PATIENT DOES NEED HELP WITH EATING, BUT IS EATING AND DRINKING WELL. PATIENT IS PLEASANT AND COOPERATIVE WITH CARE.
[2021-04-03] MEDS ORDERED: TRIM100 PO (22:50)
[2021-04-03] MEDS ORDERED: CARB10OTL BOTHEARS (22:54)
[2021-04-03] MEDS ORDERED: Acetaminophen650 M1 PO (23:00)
--- NOTE | 2021-04-04 05:12 | NUR ---
SHIFT SUMMARY AOX4 ABLE TO VOICE NEEDS PLEASANT DAWOOD PAIN IN THIS SHIFT. ASSISTED WITH FEEDING HIS DINNER DUE TO RIGHT HAND WEAKNESS ABLE TO CONSUME 50% .CLEARY DRAINING WELL HARI URINE ILIOSTOMY INTACT DRAINING LOOSE STOOL EMPTY X3 STOMY SORROUNDING CLEAN NO BLEEDING NOTED.CONT N/S AT 150ML/HR .
[2021-04-04 10:33] LABS: Anion Gap 5 mmol/L (6-16); Blood Urea Nitrogen 14 mg/dL (8-24); Bun/Creatinine Ratio 19.6 (12.0-20.0); CO2, Blood 25 mmol/L (21-32); Calcium, Blood 7.8 mg/dL (8.5-10.1); Chloride, Blood 118 mmol/L (98-108); Creatinine, Blood 0.72 mg/dL (0.60-1.20); Glomerular Filtration Rate >60 (60-); Glucose, Blood 77 mg/dL (70-99); Potassium, Blood 3.6 mmol/L (3.5-5.5); Sodium, Blood 148 mmol/L (136-145)
--- NOTE | 2021-04-04 15:08 | NUR ---
Wound care recommendations; Order alternating air mattress. Reposition Q2hrs. Cleanse coccyx with NS, apply xeroform to open area, cover with bordered foam, change daily. BLE cleanse with NS apply xeroform to open areas, cover with nonstick dressing, rolled gauze. Chenge daily
--- NOTE | 2021-04-04 19:37 | NUR ---
SHIFT SUMMARY PATIENT RESTING IN BED. PATIENT SLEPT MOST OF SHIFT ONLY WAKING FOR MEDICATION AND FEEDINGS. SPEECH THERAPY WORKED WITH PATIENT TODAY ADVANCING HIM TO SOFT BITE AND THIN LIQUIDS WITH NO STRAW. PATIENT USING SIPPY CUP. CLEARY CATHETER TO GRAVITY DRAINING HARI COLORED URINE. ILEOSTOMY PRODUCING RUNNY LOOSE STOOL. WOUND RN EVALUATED PATIENT'S SACRAL AND BLE WOUNDS AND RECOMMENDS DAILY DRESSING CHANGE WITH XEROFORM, TELFA, AND KERLIX FOR LEGS, AND XEROFORM AND MEPILEX FOR SACRUM. BED IN LOW POSITION WITH SOFT TOUCH IN REACH OF RIGHT HAND.
--- NOTE | 2021-04-05 03:34 | NUR ---
SHIFT SUMMARY AOX4 MAX ASSIT WITH CARE TURN AND REPOSITION FOR COMFORT.ILIOSTOMY CARE AND CHANGED X2 DRANIING LOOSE WATERY STOOL PT ON CONT N/S @ 50ML/HR.NO ACUTE CHANGE IN THIS SHIFT
--- NOTE | 2021-04-05 07:58 | NUR ---
JULIETH recguillermina handoff of patient care from JULIETH Box Patient was in bed asleep. No respiratory distress noted
--- NOTE | 2021-04-05 17:27 | NUR ---
Patient was alert and orient. He slept most of his shift. Patient was compliant with taking scheduled medications and had no complaints of pain. Patient will be discharging back to [facility] and this RN will call and give report as soon as patient leaves the unit. Patient belongings and discharge paperwork are ready with this patient.
--- NOTE | 2021-04-05 18:11 | NUR ---
Patient was discharged to [facility] this evening. He left the unit at 1810 with two EMT staff. Patient was alert and orient, his belongings were packed and he was taken off of the unit on a gurnee. RN will call [facility] to give report
== END 2021-04-05 18:19 | DRG 698 ==
LOC: ER 21:01 → MEDS 04-01 00:36 → PCU 04-01 00:36 → MEDS 04-03 15:52
PROVIDERS: Emergency Medicine; Family Medicine; Student in an Organized Health Care Education/Training Program; ADMIT Internal Medicine
DX: T83.511A Infection and inflammatory reaction due to indwelling urethral catheter, initial encounter (principal); R65.20 Severe sepsis without septic shock; G93.41 Metabolic encephalopathy; E87.0 Hyperosmolality and hypernatremia; E87.2 Acidosis; Z66 Do not resuscitate; N39.0 Urinary tract infection, site not specified; F41.9 Anxiety disorder, unspecified; K21.9 Gastro-esophageal reflux disease without esophagitis; N31.9 Neuromuscular dysfunction of bladder, unspecified; F32.A Depression, unspecified; F03.90 Unspecified dementia, unspecified severity, without behavioral disturbance, psychotic disturbance, mood disturbance, and anxiety; G35 Multiple sclerosis; L89.109 Pressure ulcer of unspecified part of back, unspecified stage; L89.152 Pressure ulcer of sacral region, stage 2; Z96.1 Presence of intraocular lens; Z86.16 Personal history of COVID-19; Z98.890 Other specified postprocedural states; Z87.891 Personal history of nicotine dependence; Z87.440 Personal history of urinary (tract) infections; Z86.711 Personal history of pulmonary embolism; Z86.718 Personal history of other venous thrombosis and embolism; Z88.2 Allergy status to sulfonamides; Z88.5 Allergy status to narcotic agent; Z88.6 Allergy status to analgesic agent; Z88.8 Allergy status to other drugs, medicaments and biological substances; Z79.01 Long term (current) use of anticoagulants; Z79.899 Other long term (current) drug therapy; Y84.6 Urinary catheterization as the cause of abnormal reaction of the patient, or of later complication, without mention of misadventure at the time of the procedure
CPT/HCPCS: 36415; 51702; 71045; 80048; 80053; 80202; 81001; 83605; 83880; 85025; 87040; 87086; 92526; 92610; 93005; 93010; 94762; 99285-25; A9270; C1751; J0696; J1650; J1940; J3370; J7030; J7050; J7120

== ENCOUNTER 2021-04-15 01:39 | Inpatient (IN) | payer OTHER ==
[~2021-04-15] VITALS: Ht 198.1 cm; Wt 99.1 kg
[~2021-04-15 01:39] MED LIST changes: +ACTIGALL300 MG PO; +Acetaminophen650 M1 PO; +CARB10OTL BOTHEARS
[2021-04-15 02:02] LABS: BASOPHILS ABSOLUTE AUTO 0.03 K/mm3 (0.00-0.23); BASOPHILS PERCENT AUTO 0 % (0-2); EOSINOPHILS ABSOLUTE AUTO 0.01 K/mm3 (0.00-0.68); EOSINOPHILS PERCENT AUTO 0 % (0-6); Hematocrit 47.2 % (37.0-53.0); Hemoglobin 13.8 g/dL (13.5-17.5); IMMATURE GRAN ABSOLUTE AUTO 0.05 K/mm3 (0.00-0.10); IMMATURE GRAN PERCENT AUTO 0 % (0-1); LYMPHOCYTES ABSOLUTE AUTO 0.81 K/mm3 (0.84-5.20); LYMPHOCYTES PERCENT AUTO 6 % (21-46); MONOCYTES ABSOLUTE AUTO 0.26 K/mm3 (0.16-1.47); MONOCYTES PERCENT AUTO 2 % (4-13); Mean Corpuscular HGB 24.4 pg (26.0-34.0); Mean Corpuscular HGB Conc 29.2 g/dL (31.5-36.5); Mean Corpuscular Volume 84 fL (80-100); Mean Platelet Volume 9.4 fL (9.1-12.4); NEUTROPHILS PERCENT AUTO 91 % (41-73); Platelet Count 440 K/mm3 (150-400); RDW Coefficient Variation 17.2 % (11.7-14.2); RDW Standard Deviation 51.4 fL (35.1-46.3); Red Blood Cell Count 5.65 M/mm3 (4.30-5.90); White Blood Cell Count 12.56 K/mm3 (4.00-11.30)
[2021-04-15 02:22] LABS: Alanine Aminotransfer (ALT/SGP 19 U/L (12-78); Albumin, Blood 2.7 g/dL (3.4-5.0); Albumin/Globulin Ratio 0.5 (0.8-1.8); Alk Phos 83 U/L (50-136); Anion Gap 9 mmol/L (6-16); Aspartate Aminotrans (AST/SGOT 20 U/L (12-37); Bilirubin, Total 0.4 mg/dL (0.1-1.0); Blood Urea Nitrogen 13 mg/dL (8-24); Bun/Creatinine Ratio 17.3 (12.0-20.0); CO2, Blood 26 mmol/L (21-32); Calcium, Blood 9.8 mg/dL (8.5-10.1); Chloride, Blood 100 mmol/L (98-108); Creatinine, Blood 0.75 mg/dL (0.60-1.20); Globulin, Blood 5.4 g/dL (2.2-4.0); Glomerular Filtration Rate >60 (60-); Glucose, Blood 219 mg/dL (70-99); Potassium, Blood 4.7 mmol/L (3.5-5.5); Sodium, Blood 135 mmol/L (136-145); Total Protein, Blood 8.1 g/dL (6.4-8.2)
[2021-04-15 02:41] LABS: International Normalized Ratio 1.09; Prothrombin Time Results 11.4 Sec (9.7-11.5)
[2021-04-15 03:09] LABS: Stool Occult Blood Guaiac 1 Pos (Neg)
[2021-04-15 03:23] LABS: Source, Urine Foley catheter
[2021-04-15 03:26] LABS: Bilirubin, Urine Neg (Neg); Blood, Urine 5+ (Neg); Glucose Qualitative, Urine Neg (Neg); Ketones, Urine 2+ (Neg); Leukocyte Esterase, Urine 3+ (Neg); Nitrite, Urine Neg (Neg); Protein, Urine 3+ (Neg); Specific Gravity, Urine 1.025 (1.003-1.022); Urobilinogen, Urine NORM (Normal)
[2021-04-15 03:30] LABS: Appearance, Urine Cloudy (Clear); Color, Urine Yellow (P-Yellow)
[2021-04-15 03:36] LABS: Bacteria Many /hpf; Red Blood Cells, Urine TNTC /hpf (0-2); Squamous Epithelial Cells Not Seen /hpf (Few); White Blood Cells, Urine TNTC /hpf (0-5); Yeast/Fungi Urine Mod /hpf
[2021-04-15 03:39] LABS: Influenza A, PCR NEGATIVE (NEGATIVE); Influenza B, PCR NEGATIVE (NEGATIVE); Resp Syncytial Virus, PCR NEGATIVE (NEGATIVE)
[2021-04-15 03:40] LABS: SARS-Cov-2 (COVID-19) PCR, MMC POSITIVE (NEGATIVE)
[2021-04-15 04:36] LABS: Adenovirus F 40/41 Not Detected (NOT DETECT); Astrovirus Not Detected (NOT DETECT); Campylobacter Sp Not Detected (NOT DETECT); Cryptosporidium Not Detected (NOT DETECT); Cyclospora Cayetanensis Not Detected (NOT DETECT); E. Coli O157 Not Detected (NOT DETECT); Entamoeba Histolytica Not Detected (NOT DETECT); Enteroaggregative E. coli-EAEC Not Detected (NOT DETECT); Enteropathogenic E. coli-EPEC Not Detected (NOT DETECT); Enterotoxigenic E. coli-ETEC Not Detected (NOT DETECT); Giardia Lamblia Not Detected (NOT DETECT); Norovirus GI/GII Not Detected (NOT DETECT); Plesiomonas Shigelloides Not Detected (NOT DETECT); Rotavirus A Not Detected (NOT DETECT); Salmonella Sp Not Detected (NOT DETECT); Sapovirus Not Detected (NOT DETECT); Shiga Toxin-prod E. coli-STEC Not Detected (NOT DETECT); Shigella/Enteroin E. coli-EIEC Not Detected (NOT DETECT); Vibrio Cholerae Not Detected (NOT DETECT); Vibrio Sp Not Detected (NOT DETECT); Yersinia Enterocolitica Not Detected (NOT DETECT)
[2021-04-15 12:30] LABS: Hematocrit 40.5 % (37.0-53.0)
--- NOTE | 2021-04-15 12:47 | NUR ---
PT RECENTLY TO DAYSURGERY BY [facility]. PT A/O. PT WITH HX OF M.S. SO HE REPORTS HE IS UNABLE TO SIGN HIS OWN PAPERS, VERBAL CONSENT OBTAINED. History, Chart, Medications and Allergies reviewed before start of procedure.Lungs clear T/O to Auscultation, PT ON 2LO2NC. Patient confirms NPO status and agrees with scheduled surgery. Pre-Op teaching done. Pt verbalizes understanding.
--- NOTE | 2021-04-15 13:08 | NUR ---
04/15/21 1308 Juan Antonio Tierney History, Chart, Medications and Allergies reviewed before start of procedure.MONITOR INTACT WITH CONTINUOUS PULSE OXIMETRY AND INTERMITTENT BP. EKG MONITORED DURING PROCEDURE.O2 VIA POM INTACT THROUGHOUT SEDATION/PROCEDURE. Bite Block Placed, WILL BE REMOVED AFTER PROCEDURE. See Anesthesia record, DR. LUGO.
--- NOTE | 2021-04-15 13:30 | NUR ---
DR. MOTTA SAW PT IN DAYSURGERY AFTER OUT OF ENDO ROOM 1 WHILE RN TO TRANSPORT PT TO MED FLOOR. PT BACK TO MED FLOOR ROOM 330. PT TRANSFERED TO BED WITH MULT ASSIST. JULIETH Valverde. GIVEN BEDSIDE REPORT. PT WAS TRANSFERED TO AND FROM DAYSURGERY WITH 2LO2NC IN PLACE. DENTURES PLACED BACK IN PT'S MOUTH AFTER PROCEDURE PER HIS REQUEST.
--- NOTE | 2021-04-15 16:39 | NUR ---
PATIENT IS ALERT AND ORIENTED AND COOPERATIVE WITH CARE. HE MAKES HIS NEEDS KNOWN. EGD COMPLETED TODAY WITH ORDERS FOR PO PPI AND ADVANCE DIET TOLERATED. ILEOSTOMY OUTPUT IS DARK GREEN AND LIQUID THIS SHIFT. CLEARY IN PLACE AND DRAINING. MED REC FAXED FROM [facility] AND COMPLETED THIS MORNING. PATIENT'S HX COMPLETED WITH [facility] RN'S HELP. PATIENT IS A JULIOCESAR LIFT TO WHEELCHAIR AT BASELINE. HE HAS BEEN BEDBOUND HERE. REPOSITIONING WITH PILLOWS. WILL CONTINUE TO MONITOR
[2021-04-15 18:02] LABS: Hematocrit 38.8 % (37.0-53.0); Hemoglobin 11.5 g/dL (13.5-17.5)
[2021-04-16] MEDS ORDERED: GUAI600T33 PO (00:22)
--- NOTE | 2021-04-16 04:32 | NUR ---
SHIFT SUMMARY A/O, ABLE TO MAKE NEEDS KNOWN. COOPERATIVE WITH CARE. CALLS AND ANSWERS QUESTIONS APPOPRIATLEY. C/O PAIN/DISCOMFORT; REQUESTED GABAPENTIN. NOTED THAT PATIENT HAD NOT HAD HOME MEDS T/O THE DAY. ALERTED ON-CALL PROVIDER. GIVEN OT DOSE OF GABAPENTIN; STATED HELPFUL. TRANSFERED TO LIFT ROOM. PATIENT W/C BOUND AT BASELINE. OSTOMY DRAINING DARK BROWN LIQUIDOUS STOOL; STOMA BEEFY RED. IV FLUIDS INFUSED WITHOUT COMPLICATION. APPEARED TO REST MUCH OF THE NIGHT. NO ACUTE CHANGES NOTED OVERNIGHT. BED REMAINS IN LOWEST POSITION. TOUCH CALL LIGHT WITHIN REACH. REPORT TO ONCOMING RN.
--- NOTE | 2021-04-16 06:45 | NUR ---
PHYSICIAN CORRESPONDENCE ALERTED ON-CALL PHYSICIAN OF PRELIMINARY RESULTS OF BCX GROWING GRAM+ COCCI. NO NEW ORDERS AT THIS TIME.
[2021-04-16 10:05] LABS: BASOPHILS ABSOLUTE AUTO 0.09 K/mm3 (0.00-0.23); BASOPHILS PERCENT AUTO 1 % (0-2); EOSINOPHILS ABSOLUTE AUTO 0.32 K/mm3 (0.00-0.68); EOSINOPHILS PERCENT AUTO 3 % (0-6); Hematocrit 39.4 % (37.0-53.0); Hemoglobin 11.2 g/dL (13.5-17.5); IMMATURE GRAN ABSOLUTE AUTO 0.02 K/mm3 (0.00-0.10); IMMATURE GRAN PERCENT AUTO 0 % (0-1); LYMPHOCYTES ABSOLUTE AUTO 1.39 K/mm3 (0.84-5.20); LYMPHOCYTES PERCENT AUTO 14 % (21-46); MONOCYTES ABSOLUTE AUTO 1.26 K/mm3 (0.16-1.47); MONOCYTES PERCENT AUTO 13 % (4-13); Mean Corpuscular HGB 24.7 pg (26.0-34.0); Mean Corpuscular HGB Conc 28.4 g/dL (31.5-36.5); Mean Corpuscular Volume 87 fL (80-100); Mean Platelet Volume 9.4 fL (9.1-12.4); NEUTROPHILS ABSOLUTE AUTO 6.89 K/mm3 (1.96-9.15); NEUTROPHILS PERCENT AUTO 69 % (41-73); Platelet Count 321 K/mm3 (150-400); RDW Coefficient Variation 17.3 % (11.7-14.2); Red Blood Cell Count 4.54 M/mm3 (4.30-5.90); White Blood Cell Count 9.97 K/mm3 (4.00-11.30)
--- NOTE | 2021-04-16 19:29 | NUR ---
SHIFT SUMMARY PT REFUSING TO BE MOVED ABOUT IN BED. ADAMENTLY SHAKING HIS HEAD AND SAYING NO WHEN DISCUSSING REPOSITIONING FOR BUTTOCK WOUND PROTECTION. REFUSED LUNCH AND MOST OF SUPPER. WANTS TO BE NONCOMPLIANT WITH RECOMMENDATIONS FROM SYNTHETIC CHEMIST AND PERSONAL CARE FOR KEEPING SKIN INTACT. REFUSED DINNERTIME MEDS BUT LATER WILLING TO TAKE THEM. REPEATEDLY SAYS COVER MY ARM WHEN EXPLAINED IV SITE NEEDS TO BE CHECKED AND HE SAYS HE DOESN'T WANT HIS ARM UNCOVERED TO HAVE IT CHECKED. NO FEVER. DENIES NAUSEA.
--- NOTE | 2021-04-17 04:51 | NUR ---
SHIFT SUMMARY PT DID WELL THIS EVENING. RESISTED CARE SLIGHTLY BUT MOSTLY COOPERATIVE TONIGHT. ALLOWED FOR REPOSITIONING MOST OF THE TIME. ILEOSTOMY LEAKED SO APPLIANCE WAS CHANGED. DARK BROWN WATERY STOOL. ALMOST LOOKING LIKE IT HAD SOME BILE IN IT. CLEARY CATHETER PATENT AND DRAINING. HYPOTENSIVE THIS EVENING. IMPROVED SLIGHTLY FROM LOWER 90'S SYSTOLIC TO LOWER 100'S. PT REPORTED PAIN TO BLE'S. MEDICATED W/ TYLENOL AND SCHEDULED GABAPENTIN WITH GOOF EFFECT. VITAL SIGNS STABLE. WILL CONTINUE TO MONITOR.
[2021-04-17 10:07] LABS: BASOPHILS ABSOLUTE AUTO 0.05 K/mm3 (0.00-0.23); BASOPHILS PERCENT AUTO 1 % (0-2); EOSINOPHILS ABSOLUTE AUTO 0.31 K/mm3 (0.00-0.68); EOSINOPHILS PERCENT AUTO 3 % (0-6); Hematocrit 39.2 % (37.0-53.0); Hemoglobin 11.2 g/dL (13.5-17.5); IMMATURE GRAN ABSOLUTE AUTO 0.03 K/mm3 (0.00-0.10); IMMATURE GRAN PERCENT AUTO 0 % (0-1); LYMPHOCYTES ABSOLUTE AUTO 0.98 K/mm3 (0.84-5.20); LYMPHOCYTES PERCENT AUTO 11 % (21-46); MONOCYTES ABSOLUTE AUTO 0.86 K/mm3 (0.16-1.47); MONOCYTES PERCENT AUTO 9 % (4-13); Mean Corpuscular HGB 24.6 pg (26.0-34.0); Mean Corpuscular HGB Conc 28.6 g/dL (31.5-36.5); Mean Corpuscular Volume 86 fL (80-100); Mean Platelet Volume 9.1 fL (9.1-12.4); NEUTROPHILS ABSOLUTE AUTO 7.06 K/mm3 (1.96-9.15); NEUTROPHILS PERCENT AUTO 76 % (41-73); Platelet Count 311 K/mm3 (150-400); RDW Coefficient Variation 17.2 % (11.7-14.2); RDW Standard Deviation 53.2 fL (35.1-46.3); Red Blood Cell Count 4.56 M/mm3 (4.30-5.90); White Blood Cell Count 9.29 K/mm3 (4.00-11.30)
--- NOTE | 2021-04-17 18:25 | NUR ---
SHIFT SUMMARY PT AWAKE MOST OF THE DAY BUT FOR A NAP THIS AFTERNOON. NO REPORT OF PAIN TODAY. TURNED WHEN ALLOWED. ANTERIOR SHINS WITH SCABBING IN PLACE AND YELLOW SLOUGH AREAS. NO DRAINAGE NOTED ON SHEETS. OSTOMY WITH THICK ORANGE STOOL. DENIES NAUSEA.
--- NOTE | 2021-04-18 04:50 | NUR ---
SHIFT SUMMARY PT SLEPT WELL MUCH OF THE EVENING. MORE ALERT WHEN AWAKE. PT INTERMITTENTLY WILL REFUSE REPOSITIONING OR CARE. MOSTLY COOPERATIVE THIS EVENING. BLE WOUNDS SLIGHTLY IMPROVED. OPEN TO AIR AND ELEVATED. CLEARY CATHETER PATENT AND DRAINING. ILEOSTOMY TO R ABD. STOOL A LIGHT BROWN/ORANGE LIQUID THIS EVENING. TELEMETRY SR IN THE 90'S. VITAL SIGNS STABLE. PLAN TO D/C BACK TO [facility] PER NOTES IF H/H STABLE. PT DECLINED LAB THIS AM AND ASKED THEM TO COME BACK LATER.
[2021-04-18] MEDS ORDERED: PANT20 PO (12:22)
[2021-04-18] MEDS ORDERED: UBID10 PO (12:24)
--- NOTE | 2021-04-18 18:18 | NUR ---
PT BEING DISCHARGED AND TRANSFERRED TO [facility]. TRANSPORT TIME CHANGED FROM 1700 TO 1845. ATTEMPTED TO CALL REPORT TO [facility] AT 1800. SPENT SEVERAL MINUTES ON HOLD, WAS UNABLE TO SPEAK WITH THE RECEIVING RN.
[2021-11-18] MEDS ORDERED: BENADRYL25 MG PO (14:42)
[2021-11-19] MEDS ORDERED: LOPE2C PO (10:23)
[2021-11-19] MEDS ORDERED: PIPERACIL TAZO IV (10:27)
== END 2021-04-18 20:02 | DRG 871 ==
LOC: ER 01:39 → MEDS 01:40 → ENPENDDIS 04-18 11:36 → MEDS 04-18 20:02
PROVIDERS: Emergency Medicine; Student in an Organized Health Care Education/Training Program; ADMIT Family Medicine
PROC: 0DJ08ZZ Inspection of Upper Intestinal Tract, Via Natural or Artificial Opening Endoscopic (ICD-10-PCS; principal; 2021-04-15 13:00)
PROC: 3E03329 Introduction of Other Anti-infective into Peripheral Vein, Percutaneous Approach (ICD-10-PCS; 2021-04-18)
DX: A41.9 Sepsis, unspecified organism (principal); U07.1 COVID-19; K20.91 Esophagitis, unspecified with bleeding; K29.71 Gastritis, unspecified, with bleeding; N39.0 Urinary tract infection, site not specified; E87.2 Acidosis; R65.20 Severe sepsis without septic shock; K80.20 Calculus of gallbladder without cholecystitis without obstruction; N20.9 Urinary calculus, unspecified; G35 Multiple sclerosis; Z93.2 Ileostomy status; F03.90 Unspecified dementia, unspecified severity, without behavioral disturbance, psychotic disturbance, mood disturbance, and anxiety; N39.498 Other specified urinary incontinence; Z66 Do not resuscitate; K21.9 Gastro-esophageal reflux disease without esophagitis; F32.A Depression, unspecified; N31.9 Neuromuscular dysfunction of bladder, unspecified; Z91.048 Other nonmedicinal substance allergy status; Z88.2 Allergy status to sulfonamides; Z88.6 Allergy status to analgesic agent; Z90.49 Acquired absence of other specified parts of digestive tract; I25.10 Atherosclerotic heart disease of native coronary artery without angina pectoris; Z88.5 Allergy status to narcotic agent; Z91.02 Food additives allergy status; Z88.8 Allergy status to other drugs, medicaments and biological substances; Z91.018 Allergy to other foods; Z88.4 Allergy status to anesthetic agent; Z96.1 Presence of intraocular lens; Z87.891 Personal history of nicotine dependence; Z98.890 Other specified postprocedural states; Z53.29 Procedure and treatment not carried out because of patient's decision for other reasons; Z86.718 Personal history of other venous thrombosis and embolism; Z86.711 Personal history of pulmonary embolism
CPT/HCPCS: 0097U; 0241U; 36415; 51702; 71260; 74177; 80053; 81001; 82272; 82947; 83605; 83690; 84145; 85014; 85018; 85025; 85610; 87040; 87086; 92610; 93005; 93010; 96365; 96365-59; 96366; 96366-59; 96368; 96375-59; 99285-25; A9270; C9113; G0378; J2405; J2543; J2704; J2765; J7030; J7050; J7120; Q9967

== ENCOUNTER → 2021-05-30 | Outpatient (CLI) | payer OTHER ==
[~2021-05-30] MED LIST changes: +ACTIVE PO; +Acetaminophen325 M1 PO; +PANT20 PO; +PANT40 PO; +PIPERACIL TAZO IV; +SUCR1 PO; +[UNRECOGNIZED DRUG - OTHER] PO
[2021-05-30 11:32] LABS: BASOPHILS ABSOLUTE AUTO 0.05 K/mm3 (0.00-0.23); BASOPHILS PERCENT AUTO 1 % (0-2); EOSINOPHILS ABSOLUTE AUTO 0.58 K/mm3 (0.00-0.68); EOSINOPHILS PERCENT AUTO 8 % (0-6); Hematocrit 42.9 % (37.0-53.0); Hemoglobin 12.5 g/dL (13.5-17.5); IMMATURE GRAN ABSOLUTE AUTO 0.01 K/mm3 (0.00-0.10); IMMATURE GRAN PERCENT AUTO 0 % (0-1); LYMPHOCYTES ABSOLUTE AUTO 1.34 K/mm3 (0.84-5.20); LYMPHOCYTES PERCENT AUTO 18 % (21-46); MONOCYTES ABSOLUTE AUTO 0.67 K/mm3 (0.16-1.47); MONOCYTES PERCENT AUTO 9 % (4-13); Mean Corpuscular HGB 24.4 pg (26.0-34.0); Mean Corpuscular HGB Conc 29.1 g/dL (31.5-36.5); Mean Corpuscular Volume 84 fL (80-100); Mean Platelet Volume 9.5 fL (9.1-12.4); NEUTROPHILS ABSOLUTE AUTO 4.84 K/mm3 (1.96-9.15); NEUTROPHILS PERCENT AUTO 65 % (41-73); Platelet Count 326 K/mm3 (150-400); RDW Coefficient Variation 15.6 % (11.7-14.2); RDW Standard Deviation 47.2 fL (35.1-46.3); Red Blood Cell Count 5.12 M/mm3 (4.30-5.90); White Blood Cell Count 7.49 K/mm3 (4.00-11.30)
[2021-05-30 11:42] LABS: Alanine Aminotransfer (ALT/SGP 18 U/L (12-78); Albumin/Globulin Ratio 0.7 (0.8-1.8); Alk Phos 74 U/L (50-136); Anion Gap 6 mmol/L (6-16); Aspartate Aminotrans (AST/SGOT 19 U/L (12-37); Bilirubin, Total 0.4 mg/dL (0.1-1.0); Blood Urea Nitrogen 13 mg/dL (8-24); Bun/Creatinine Ratio 17.4 (12.0-20.0); CO2, Blood 31 mmol/L (21-32); Calcium, Blood 8.8 mg/dL (8.5-10.1); Chloride, Blood 102 mmol/L (98-108); Creatinine, Blood 0.75 mg/dL (0.60-1.20); Globulin, Blood 4.1 g/dL (2.2-4.0); Glomerular Filtration Rate >60 (60-); Glucose, Blood 100 mg/dL (70-99); Potassium, Blood 4.6 mmol/L (3.5-5.5); Sodium, Blood 139 mmol/L (136-145); Total Protein, Blood 7.1 g/dL (6.4-8.2)
== END | disposition home or self-care (01) ==
LOC: LAB RH 10:24 → EDSTATUS 14:01
PROVIDERS: Internal Medicine
DX: I10 Essential (primary) hypertension (principal); E87.6 Hypokalemia; R63.0 Anorexia
CPT/HCPCS: 80053; 85025

== ENCOUNTER 2021-06-23 07:30 | Inpatient (IN) | payer OTHER ==
[~2021-06-23] VITALS: Ht 198.1 cm; Wt 101.0 kg
[~2021-06-23 07:30] MED LIST changes: -ACTIVE PO; -Acetaminophen325 M1 PO; -PANT40 PO; -PIPERACIL TAZO IV; -SUCR1 PO; -[UNRECOGNIZED DRUG - OTHER] PO
[2021-06-23 08:07] LABS: BASOPHILS ABSOLUTE AUTO 0.05 K/mm3 (0.00-0.23); BASOPHILS PERCENT AUTO 0 % (0-2); EOSINOPHILS ABSOLUTE AUTO 0.04 K/mm3 (0.00-0.68); EOSINOPHILS PERCENT AUTO 0 % (0-6); Hematocrit 48.6 % (37.0-53.0); Hemoglobin 14.2 g/dL (13.5-17.5); IMMATURE GRAN ABSOLUTE AUTO 0.04 K/mm3 (0.00-0.10); IMMATURE GRAN PERCENT AUTO 0 % (0-1); LYMPHOCYTES ABSOLUTE AUTO 0.94 K/mm3 (0.84-5.20); LYMPHOCYTES PERCENT AUTO 6 % (21-46); MONOCYTES ABSOLUTE AUTO 0.68 K/mm3 (0.16-1.47); MONOCYTES PERCENT AUTO 4 % (4-13); Mean Corpuscular HGB 24.7 pg (26.0-34.0); Mean Corpuscular HGB Conc 29.2 g/dL (31.5-36.5); Mean Corpuscular Volume 84 fL (80-100); Mean Platelet Volume 9.1 fL (9.1-12.4); NEUTROPHILS ABSOLUTE AUTO 14.17 K/mm3 (1.96-9.15); NEUTROPHILS PERCENT AUTO 89 % (41-73); Platelet Count 382 K/mm3 (150-400); RDW Coefficient Variation 15.4 % (11.7-14.2); RDW Standard Deviation 47.7 fL (35.1-46.3); Red Blood Cell Count 5.76 M/mm3 (4.30-5.90); White Blood Cell Count 15.92 K/mm3 (4.00-11.30)
[2021-06-23 08:31] LABS: Magnesium, Blood 2.2 mg/dL (1.6-2.4)
[2021-06-23 08:33] LABS: Alanine Aminotransfer (ALT/SGP 23 U/L (12-78); Albumin, Blood 3.4 g/dL (3.4-5.0); Albumin/Globulin Ratio 0.7 (0.8-1.8); Alk Phos 87 U/L (50-136); Anion Gap 10 mmol/L (6-16); Aspartate Aminotrans (AST/SGOT 19 U/L (12-37); Bilirubin, Direct <0.1 mg/dL (0.0-0.3); Bilirubin, Indirect Unable to Calculate mg/dL (0.1-0.7); Bilirubin, Total 0.5 mg/dL (0.1-1.0); Blood Urea Nitrogen 17 mg/dL (8-24); Bun/Creatinine Ratio 27.6 (12.0-20.0); CO2, Blood 27 mmol/L (21-32); Calcium, Blood 9.5 mg/dL (8.5-10.1); Chloride, Blood 101 mmol/L (98-108); Creatinine, Blood 0.62 mg/dL (0.60-1.20); Globulin, Blood 5.1 g/dL (2.2-4.0); Glomerular Filtration Rate >60 (60-); Glucose, Blood 153 mg/dL (70-99); Potassium, Blood 4.3 mmol/L (3.5-5.5); Sodium, Blood 138 mmol/L (136-145); Total Protein, Blood 8.5 g/dL (6.4-8.2)
[2021-06-23 09:04] LABS: Source, Urine Foley catheter
[2021-06-23 09:07] LABS: Appearance, Urine Cloudy (Clear); Bilirubin, Urine Neg (Neg); Blood, Urine 5+ (Neg); Color, Urine Yellow (P-Yellow); Glucose Qualitative, Urine Neg (Neg); Ketones, Urine Neg (Neg); Leukocyte Esterase, Urine 3+ (Neg); Nitrite, Urine Pos (Neg); Protein, Urine 3+ (Neg); Urobilinogen, Urine NORM (Normal)
[2021-06-23 09:16] LABS: Bacteria Many /hpf; Red Blood Cells, Urine TNTC /hpf (0-2); Squamous Epithelial Cells Rare /hpf (Few); White Blood Cells, Urine TNTC /hpf (0-5)
--- NOTE | 2021-06-23 17:20 | NUR ---
SHIFT NOTE AT THE TIME OF THIS NOTE PHARMACY AWAITING LAB RESULTS FOR HEPARIN INFUSION. ORAL MEDS ARE HELD PT LETHARGIC, DOES NOT STAY AWAKE, DOES NOT APPEAR TO MANAGE SECRETIONS WELL, REQUIRES ORAL SUCTIONING. UPON ARRIVAL TO PCU PT BEGAN TO VOMIT, RECIEVED PHENERGAN IVP FOR VOMITTING WHICH RESOLVED. PT WAS UNABLE TO PARTICPATE WITH ADMISSION HX. CLEARY WAS REPLACED IN ER UPON ARRIVAL TO ER, THERE IS WHITE THICK DRAINAGE NOTED AROUND CLEARY CATH, PENIS WITH A GREAT DEAL OF EROSION NOTED. DR WALLER TO ROOM FOR ASSESSMENT, PT NOT CANDIDATE FOR PROCEDURE AT THIS TIME. DR JOY HAS REACHED OUT TO [facility] FOR POSSIBLE TRANSFER PT WILL REQUIRE UROLOGY CONSULT.
[2021-06-23 18:29] LABS: International Normalized Ratio 1.06; Prothrombin Time Results 11.1 Sec (9.7-11.5)
--- NOTE | 2021-06-23 19:30 | NUR ---
ASSUMPTION OF CARE SALVADOR SIDHU AND JOSE CLANCY ASSUMED CARE OF PATIENT AT 1900. REPORT TAKEN FROM SUSAN SIDHU AND DOROTEO CLANCY
[2021-06-23] MEDS ORDERED: Florastor250 MG PO (22:46)
[2021-06-23] MEDS ORDERED: [UNRECOGNIZED DRUG - OTHER] PO (22:46)
[2021-06-23] MEDS ORDERED: ACTIVE PO (22:46)
[2021-06-24 01:21] LABS: BASOPHILS ABSOLUTE AUTO 0.03 K/mm3 (0.00-0.23); BASOPHILS PERCENT AUTO 0 % (0-2); EOSINOPHILS PERCENT AUTO 0 % (0-6); Hematocrit 45.2 % (37.0-53.0); Hemoglobin 13.7 g/dL (13.5-17.5); IMMATURE GRAN ABSOLUTE AUTO 0.06 K/mm3 (0.00-0.10); IMMATURE GRAN PERCENT AUTO 0 % (0-1); LYMPHOCYTES ABSOLUTE AUTO 0.95 K/mm3 (0.84-5.20); LYMPHOCYTES PERCENT AUTO 6 % (21-46); MONOCYTES ABSOLUTE AUTO 1.09 K/mm3 (0.16-1.47); MONOCYTES PERCENT AUTO 7 % (4-13); Mean Corpuscular HGB Conc 30.3 g/dL (31.5-36.5); Mean Corpuscular Volume 82 fL (80-100); Mean Platelet Volume 9.1 fL (9.1-12.4); NEUTROPHILS ABSOLUTE AUTO 13.58 K/mm3 (1.96-9.15); NEUTROPHILS PERCENT AUTO 87 % (41-73); Platelet Count 390 K/mm3 (150-400); RDW Coefficient Variation 15.5 % (11.7-14.2); RDW Standard Deviation 46.5 fL (35.1-46.3); Red Blood Cell Count 5.49 M/mm3 (4.30-5.90); White Blood Cell Count 15.71 K/mm3 (4.00-11.30)
[2021-06-24 01:41] LABS: Alanine Aminotransfer (ALT/SGP 20 U/L (12-78); Albumin/Globulin Ratio 0.7 (0.8-1.8); Alk Phos 76 U/L (50-136); Anion Gap 5 mmol/L (6-16); Aspartate Aminotrans (AST/SGOT 16 U/L (12-37); Bilirubin, Total 0.4 mg/dL (0.1-1.0); Blood Urea Nitrogen 16 mg/dL (8-24); CO2, Blood 33 mmol/L (21-32); Calcium, Blood 9.1 mg/dL (8.5-10.1); Chloride, Blood 104 mmol/L (98-108); Creatinine, Blood 0.67 mg/dL (0.60-1.20); Globulin, Blood 4.6 g/dL (2.2-4.0); Glomerular Filtration Rate >60 (60-); Glucose, Blood 144 mg/dL (70-99); Potassium, Blood 4.2 mmol/L (3.5-5.5); Sodium, Blood 142 mmol/L (136-145); Total Protein, Blood 7.6 g/dL (6.4-8.2)
--- NOTE | 2021-06-24 04:25 | NUR ---
SHIFT SUMMARY PATIENT IS LETHARGIC BUT AWAKENS WITH VERBAL STIMULI. ORIENTED X4 BUT IS SLOW TO ANSWER OR DOES NOT ANSWER QUESTIONS OCCASIONALLY. BEDBOUND AND DEPENDENT FOR ALL CARE. ONLY HAS ABILITY TO MOVE RIGHT ARM. BILATERAL FOOT DROP NOTED AND BOOTIES APPLIED. WASH CLOTH PLACED IN LEFT HAND DUE TO JAQUELIN. AFEBRILE. O2 INCREASED TO 3L FROM 2L VIA NASAL CANULA DUE TO DESATTING WHILE SLEEPING DURING THE SHIFT. O2 SATS >92%. ST ON TELE WITH HR IN 100S. SBP 110-120. NO COMPLAINTS OF PAIN EXCEPT WHEN REPOSITIONING. MEDICATED FOR NAUSEA WITH EPISODE OF EMESIS. PATIENT RECEIVED BEDBATH AND NEW SHEETS. UPPER DENTURES REMOVED AND CLEANED PER PATIENT REQUEST. ORAL CARE AND SUCTION DONE DURING SHIFT. NO OUTPUT FROM ILEOSTOMY. HEPARIN INFUSING AT 16 UNITS/KG/HR AND NS AT 100MLS/HR. CALL BUTTON IN REACH AND BED IN LOWEST POSITION. WILL CONTINUE TO MONITOR.
--- NOTE | 2021-06-24 18:42 | NUR ---
SHIFT NOTE PT MORE CONVERSIVE TODAY, DROWSY, WAKES TO VERBAL STIMULI. VSS. GARBLED SPEECH NOTED. VERY FAINT PULSES NOTED TO EXTREMETIES X4. NG PLACED ON THIS SHIFT, REPEAT CHEST XRAY PERFORMED TO CONFIRM TUBEPALCEMENT, UPON INSERTION OF NG PT NOTED TO 750 ML OF BROWN DRAINAGE FROM NG. NO MEDICATIONS ARE GIVEN THROUGH NG UNTIL PLACEMENT CAN BE PROPERLY CONFIRMED VIA XRAY. PT REMAINS PENDING TRANSFER OUT OF HOSPITAL FOR UROLOGY CONSULT. SCANT DRAINGAGE NOTED FROM PENIS TODAY, ZENAIDA CARE AND CATH CARE PERFORMED X2. ILEOSTOMY PRODUCING DARK GREEN DRAINAGE. CLEARY DRAINGING DARK YELLOW URINE TO GRAVITY. LS ARE COARSE TODAY WHICH IS CHANGE FRO YESTERDAY, LS WERE CLEAR, IS AWARE OF THIS AND CHEST XRAY WAS PERFORMED.
[2021-06-25 04:24] LABS: BASOPHILS ABSOLUTE AUTO 0.11 K/mm3 (0.00-0.23); BASOPHILS PERCENT AUTO 1 % (0-2); EOSINOPHILS ABSOLUTE AUTO 0.35 K/mm3 (0.00-0.68); EOSINOPHILS PERCENT AUTO 3 % (0-6); Hemoglobin 10.5 g/dL (13.5-17.5); IMMATURE GRAN ABSOLUTE AUTO 0.04 K/mm3 (0.00-0.10); IMMATURE GRAN PERCENT AUTO 0 % (0-1); LYMPHOCYTES ABSOLUTE AUTO 0.66 K/mm3 (0.84-5.20); LYMPHOCYTES PERCENT AUTO 5 % (21-46); MONOCYTES ABSOLUTE AUTO 0.94 K/mm3 (0.16-1.47); MONOCYTES PERCENT AUTO 7 % (4-13); Mean Corpuscular HGB 24.8 pg (26.0-34.0); Mean Corpuscular HGB Conc 29.2 g/dL (31.5-36.5); Mean Corpuscular Volume 85 fL (80-100); Mean Platelet Volume 9.2 fL (9.1-12.4); NEUTROPHILS ABSOLUTE AUTO 11.97 K/mm3 (1.96-9.15); NEUTROPHILS PERCENT AUTO 85 % (41-73); Platelet Count 269 K/mm3 (150-400); RDW Coefficient Variation 15.8 % (11.7-14.2); Red Blood Cell Count 4.24 M/mm3 (4.30-5.90); White Blood Cell Count 14.07 K/mm3 (4.00-11.30)
[2021-06-25 04:46] LABS: Alanine Aminotransfer (ALT/SGP 13 U/L (12-78); Albumin, Blood 2.4 g/dL (3.4-5.0); Albumin/Globulin Ratio 0.7 (0.8-1.8); Alk Phos 52 U/L (50-136); Anion Gap 5 mmol/L (6-16); Aspartate Aminotrans (AST/SGOT 12 U/L (12-37); Bilirubin, Total 0.4 mg/dL (0.1-1.0); Blood Urea Nitrogen 23 mg/dL (8-24); Bun/Creatinine Ratio 34.1 (12.0-20.0); CO2, Blood 26 mmol/L (21-32); Chloride, Blood 112 mmol/L (98-108); Creatinine, Blood 0.68 mg/dL (0.60-1.20); Globulin, Blood 3.6 g/dL (2.2-4.0); Glomerular Filtration Rate >60 (60-); Glucose, Blood 106 mg/dL (70-99); Potassium, Blood 3.8 mmol/L (3.5-5.5); Sodium, Blood 143 mmol/L (136-145)
--- NOTE | 2021-06-25 06:03 | NUR ---
SHIFT SUMMARY ASSUMED CARE OF PT AT 1900. PT IS A/OX3. PT DID NOT OPEN HIS EYES TO TALK UNTIL THIS AM. PT WILL BARK OUT ORDERS TO STAFF BUT STILL SAY THANK YOU. HEART SOUNDS REGULAR, TELE SHOWED SINUS- SINUS TACH. LUNG SOUNDS DIMINISHED AT BASES, PT REMAINED ON 2L NC PER REQUEST BUT SATURATIONS WERE 93% AND HIGHER ON RA. PT HAS A WEAK COUGH, SPUTUM IS THICK AND YELLOW TINTED. ABD IS DISTENED AND PAINFUL TO PT. NG TUBE SUCTIONED 600ML OF DARK BROWM/BLACK COFFEE GROUND LIQUID, DISCUSSED WITH CHARGE NURSE THAT PT MIGHT NEED A GI CONSULT. PT ILIOSTOMY ONLY HAD ABOUT 300ML OF DARK GREEN DRAINIAGE. CLEARY DRAINED CLEAR YELLOW URINE. PT BOTTOM HAS A MEPILEX ON. PT REQUESTED TO BE REPOSITIONED FREQUENTLY. PT HAS LITTLE MOVEMENT IN R ARM BUT OTHERWISE IMMOBILE.
[2021-06-25 12:49] LABS: Influenza A, PCR NEGATIVE (NEGATIVE); Influenza B, PCR NEGATIVE (NEGATIVE); Resp Syncytial Virus, PCR NEGATIVE (NEGATIVE); SARS-Cov-2 (COVID-19) PCR, MMC NEGATIVE (NEGATIVE)
[2021-06-25 13:37] LABS: Hematocrit 34.7 % (37.0-53.0); Hemoglobin 9.9 g/dL (13.5-17.5)
--- NOTE | 2021-06-25 15:27 | NUR ---
PT TRANSPORTED TO [facility]. AGREES WITH PLANNED PROCEDURE.
--- NOTE | 2021-06-25 16:15 | NUR ---
06/25/21 1615 Moon Hood History, Chart, Medications and Allergies reviewed before start of procedure. Patient confirms NPO status and agrees with scheduled surgery. 3-LEAD EKG REVIEWED WITH PHYSICIAN PRIOR TO START OF PROCEDURE. MONITOR INTACT WITH CONTINUOUS PULSE OXIMETRY AND INTERMITTENT BP. PATIENT DETERMINED TO BE ASA APPROPRIATE FOR MAC WITH DR SAENZ. POM MASK AND BITE BLOCK PLAced prior to procedure
--- NOTE | 2021-06-25 18:39 | NUR ---
SHIFT SUMMARY PT AXO, PLEASANT AND COOPERATIVE WITH CARE THOUGH GARBLED SPEECH. NG TUBE PATENT AND HOOKED UP TO SUCTION PER ORDERS, LOW INT. COFFEE GROUND DARK EMESIS, 150ML OUT THIS SHIFT. ILIOSTOMY PATENT AND DRAINING VERY DARK GREEN/BLACK LIQUID STOOL, 200ML OUT THIS SHIFT. PT COUGHS AND PRODUCES SPUTUM THAT HE CANNOT CLEAR OUT OF HIS MOUTH, SUCTION PRN, LIGHT YELLOW SPUTUM. DRESSINGS TO BLE AND MEPILEX TO COCCYX CHANGED THIS SHIFT. PT TURNED Q2. CLEARY PATENT AND DRAINING CLEAR YELLOW URINE. PT COMPLAINED OF L HAND PAIN. HAND PLACED ON PILLOW WITH GOOD RELIEF. UPPER ENDOSCOPY THIS SHIFT, SEE NOTE. PROTONIX DRIP INFUSING PER EMAR. HEPARIN DRIP DC'D THIS SHIFT PER DR JOY. PT REQUESTED MOUTH SWAB ABOUT HALF WAY THROUGH THE SHIFT, WHEN THIS NURSE DID ORAL CARE, PT CLAMPED DOWN ON THE SWAB AND SUCKED THE WATER OUT RESULTING IN A COUGHING SPELL/ ASPIRATION. O2 SAT REMAINED STABLE. BED IN LOW POSITION, CALL LIGHT WITHIN REACH. PT ABLE TO MAKE NEEDS KNOWN. PT ON TELE, NSR IN 70'S.
[2021-06-26 04:48] LABS: BASOPHILS ABSOLUTE AUTO 0.08 K/mm3 (0.00-0.23); BASOPHILS PERCENT AUTO 1 % (0-2); EOSINOPHILS ABSOLUTE AUTO 0.45 K/mm3 (0.00-0.68); EOSINOPHILS PERCENT AUTO 5 % (0-6); Hematocrit 35.8 % (37.0-53.0); Hemoglobin 10.2 g/dL (13.5-17.5); IMMATURE GRAN ABSOLUTE AUTO 0.03 K/mm3 (0.00-0.10); IMMATURE GRAN PERCENT AUTO 0 % (0-1); LYMPHOCYTES ABSOLUTE AUTO 0.88 K/mm3 (0.84-5.20); LYMPHOCYTES PERCENT AUTO 10 % (21-46); MONOCYTES PERCENT AUTO 9 % (4-13); Mean Corpuscular HGB 24.3 pg (26.0-34.0); Mean Corpuscular HGB Conc 28.5 g/dL (31.5-36.5); Mean Corpuscular Volume 85 fL (80-100); Mean Platelet Volume 9.2 fL (9.1-12.4); NEUTROPHILS ABSOLUTE AUTO 6.45 K/mm3 (1.96-9.15); NEUTROPHILS PERCENT AUTO 74 % (41-73); Platelet Count 220 K/mm3 (150-400); RDW Coefficient Variation 15.5 % (11.7-14.2); RDW Standard Deviation 47.8 fL (35.1-46.3); White Blood Cell Count 8.69 K/mm3 (4.00-11.30)
[2021-06-26 05:03] LABS: Alanine Aminotransfer (ALT/SGP 14 U/L (12-78); Albumin, Blood 2.4 g/dL (3.4-5.0); Albumin/Globulin Ratio 0.7 (0.8-1.8); Alk Phos 57 U/L (50-136); Anion Gap 8 mmol/L (6-16); Aspartate Aminotrans (AST/SGOT 12 U/L (12-37); Bilirubin, Total 0.4 mg/dL (0.1-1.0); Blood Urea Nitrogen 18 mg/dL (8-24); CO2, Blood 26 mmol/L (21-32); Chloride, Blood 112 mmol/L (98-108); Globulin, Blood 3.6 g/dL (2.2-4.0); Glomerular Filtration Rate >60 (60-); Glucose, Blood 77 mg/dL (70-99); Potassium, Blood 3.5 mmol/L (3.5-5.5); Sodium, Blood 146 mmol/L (136-145)
--- NOTE | 2021-06-26 05:33 | NUR ---
SHIFT SUMMARY ASSUMED CARE OF PT AT 1900. PT IS A/OX4. HEART SOUNDS REGULAR. LUNG SOUNDS DIMINISHED AT THE BASES. PT STATES SOB WHEN LAYING DOWN. CLEARY DRAINING CLEAR YELLOW URINE. OSTOMY HAD SMALL AMOUNT OF DARK GREEN DRAINAGE. PT CONTINUES TO HAVE SMALL AMOUNT OF DARK BROWN/BLACK COFFEE GROUND DRAINIAGE FROM NG TUBE. PT STATES PAIN IN LEGS, REPOSITIONED FREQUENTLY. PT DID NOT SLEEP WELL THIS NIGHT, PT THINKS ITS BECAUSE HE SLEPT FOR TWO DAYS.
--- NOTE | 2021-06-26 18:43 | NUR ---
Shift Summary Pt remains A&Ox4. VSS. No c/o pain. FC maintained with AUO. Ileostomy maintained, gas/stool present, device remains C/D/I. NGT remains in place, clamped- MD to re-evaluate in AM for possible removal. BLE wound dressing change completed. Frequent rounds to ensure pt safety. Pt repositioned q2hrs and pressure points offloaded to prevent pressure ulcers. Pt in no apparent distress. Will continue to monitor until transfer of care to oncoming RN.
--- NOTE | 2021-06-26 19:50 | NUR ---
PATIENT ASSUMPTION NOTE SALVADOR SIDHU AND JOSE CLANCY ASSUMED CARE OF PATIENT AT 1900. REPORT TAKEN FROM TIA RN
--- NOTE | 2021-06-27 04:17 | NUR ---
SHIFT SUMMARY PATIENT A&O X4. CALM AND COOPERATIVE WITH CARE. DEPENDENT FOR ALL ADLS. NO COMPLAINTS OF PAIN DURING THE SHIFT. O2 SATS >96% ON 2L NC. SR, HR 80-90. SBP 110-120. AFEBRILE. DARK BLACK/GREEN OUTPUT FROM ILEOSTOMY. CLEARY CATHETER DRAINING DARK YELLOW URINE. NG TUBE CLAMPED AND USED FOR PO MEDS WITH NO COMPLICATIONS. DRESSINGS ON BLE CHANGED ON 06/26. Q2HR REPOSITIONING. LUE KEPT ON PILLOW FOR PATIENT COMFORT. LEFT WRIST IV WAS REMOVED DUE TO INFILTRATION. PATIENT HAS A RAC AND RW IV THAT ARE BOTH INTACT AND FLUSH WELL. FREQUENT CHECKS FOR SAFETY DUE TO PATIENTS INABILITY TO MOVE INDEPENDENTLY. CALL LIGHT ON CHEST. BED IN LOWEST POSITION. WILL CONTINUE TO MONITOR.
[2021-06-27 05:27] LABS: BASOPHILS ABSOLUTE AUTO 0.04 K/mm3 (0.00-0.23); BASOPHILS PERCENT AUTO 0 % (0-2); EOSINOPHILS ABSOLUTE AUTO 0.35 K/mm3 (0.00-0.68); EOSINOPHILS PERCENT AUTO 4 % (0-6); Hematocrit 38.5 % (37.0-53.0); Hemoglobin 11.2 g/dL (13.5-17.5); IMMATURE GRAN ABSOLUTE AUTO 0.03 K/mm3 (0.00-0.10); IMMATURE GRAN PERCENT AUTO 0 % (0-1); LYMPHOCYTES ABSOLUTE AUTO 1.08 K/mm3 (0.84-5.20); LYMPHOCYTES PERCENT AUTO 12 % (21-46); MONOCYTES ABSOLUTE AUTO 0.71 K/mm3 (0.16-1.47); MONOCYTES PERCENT AUTO 8 % (4-13); Mean Corpuscular HGB 24.7 pg (26.0-34.0); Mean Corpuscular HGB Conc 29.1 g/dL (31.5-36.5); Mean Corpuscular Volume 85 fL (80-100); Mean Platelet Volume 9.1 fL (9.1-12.4); NEUTROPHILS ABSOLUTE AUTO 7.15 K/mm3 (1.96-9.15); NEUTROPHILS PERCENT AUTO 77 % (41-73); Platelet Count 230 K/mm3 (150-400); RDW Coefficient Variation 15.4 % (11.7-14.2); RDW Standard Deviation 47.3 fL (35.1-46.3); Red Blood Cell Count 4.53 M/mm3 (4.30-5.90); White Blood Cell Count 9.36 K/mm3 (4.00-11.30)
[2021-06-27 05:49] LABS: Anion Gap 11 mmol/L (6-16); Blood Urea Nitrogen 15 mg/dL (8-24); Bun/Creatinine Ratio 27.4 (12.0-20.0); CO2, Blood 23 mmol/L (21-32); Calcium, Blood 8.3 mg/dL (8.5-10.1); Chloride, Blood 110 mmol/L (98-108); Creatinine, Blood 0.55 mg/dL (0.60-1.20); Glomerular Filtration Rate >60 (60-); Glucose, Blood 65 mg/dL (70-99); Potassium, Blood 3.4 mmol/L (3.5-5.5); Sodium, Blood 144 mmol/L (136-145)
--- NOTE | 2021-06-27 06:49 | NUR ---
PT UPDATE PT BLOOD GLUCOSE LAB THIS AM RESULTED AT 65. JUICE GIVEN. CBG RECHECKED RESULTING AT 56. CALL PLACED TO MD BAHENA. MD BAHENA W/ ORDERS FOR D10 AT 50 MLS/HR. SEE EMAR.
--- NOTE | 2021-06-27 18:13 | NUR ---
Shift Summary Pt remains A&Ox4. VSS. C/o R ear pain- Tylenol x2 administered, ear drops started. FC maintained- AUO. Ileostomy maintained, gas/stool present, appliance remains C/D/I. Diet advanced- tolerating well. NGT removed- no s/s of abd distention at this time. IVF continued d/t labile blood glucose. BLE wound dressings changed. Frequent rounds to ensure pt safety. Repositioned q2hrs and pressure points offloaded to prevent pressure ulcers. Pt in no apparent distress at this time. Will continue to monitor until transfer of care to oncoming RN.
--- NOTE | 2021-06-28 03:43 | NUR ---
INTERACTIVE MEDIA DESIGNER SUMMARY PT WAS TRANSFERRED HERE FROM PCU BEFORE SHIFT CHANGE. REPORTED WAS HERE DUE TO SEPSIS, BUT HAS BEEN RESOLVED WITH TREATMENT OF ABX. HE MS, A-FIB, GERD. HAS CLEARY AND ILEOSTOMY. BOTH DRAINING/PUTTING OUT SUFFICIENT. IVF AND ANTIBIOTICS INFUSING ORDERED - SEE MAR FOR DETAILS. ALERT TO QUESTIONS ASKED, REPOSITIONED INTERMITTENTLY. NOTE DRESSINGS OF COCCYX (FOR PROTECTION) AND OF BLE WHICH WOUND CENTER FOLLOWS UP WITH. O2 PER NC. HOB ELEVATED FOR COMFORT AND PREVENT ASPIRATION. NO NOTED HEMOPTYSIS. CALL LIGHT IN REACH. FREQUENT BEDSIDE CHECKS DONE. CURRENTLY RESTING QUIETLY
[2021-06-28 05:23] LABS: BASOPHILS ABSOLUTE AUTO 0.04 K/mm3 (0.00-0.23); BASOPHILS PERCENT AUTO 1 % (0-2); EOSINOPHILS ABSOLUTE AUTO 0.52 K/mm3 (0.00-0.68); EOSINOPHILS PERCENT AUTO 7 % (0-6); Hematocrit 33.7 % (37.0-53.0); Hemoglobin 10.1 g/dL (13.5-17.5); IMMATURE GRAN ABSOLUTE AUTO 0.02 K/mm3 (0.00-0.10); IMMATURE GRAN PERCENT AUTO 0 % (0-1); LYMPHOCYTES ABSOLUTE AUTO 1.35 K/mm3 (0.84-5.20); LYMPHOCYTES PERCENT AUTO 17 % (21-46); MONOCYTES ABSOLUTE AUTO 0.77 K/mm3 (0.16-1.47); MONOCYTES PERCENT AUTO 10 % (4-13); Mean Corpuscular Volume 83 fL (80-100); Mean Platelet Volume 9.4 fL (9.1-12.4); NEUTROPHILS ABSOLUTE AUTO 5.32 K/mm3 (1.96-9.15); NEUTROPHILS PERCENT AUTO 66 % (41-73); Platelet Count 246 K/mm3 (150-400); RDW Coefficient Variation 15.4 % (11.7-14.2); RDW Standard Deviation 46.6 fL (35.1-46.3); Red Blood Cell Count 4.04 M/mm3 (4.30-5.90); White Blood Cell Count 8.02 K/mm3 (4.00-11.30)
[2021-06-28 05:40] LABS: Anion Gap 4 mmol/L (6-16); Blood Urea Nitrogen 9 mg/dL (8-24); Bun/Creatinine Ratio 15.3 (12.0-20.0); CO2, Blood 29 mmol/L (21-32); Calcium, Blood 8.1 mg/dL (8.5-10.1); Chloride, Blood 108 mmol/L (98-108); Creatinine, Blood 0.59 mg/dL (0.60-1.20); Glomerular Filtration Rate >60 (60-); Glucose, Blood 122 mg/dL (70-99); Sodium, Blood 141 mmol/L (136-145)
--- NOTE | 2021-06-28 14:10 | NUR ---
ST WORKING WITH PATIENT NOW
--- NOTE | 2021-06-28 18:01 | NUR ---
PATIENT SLOW TO RESPOND, MAKES NEEDS KNOWN, CALL LIGHT WITH IN REACH, RESTED THROUGH THE DAY. ST CHANGED DIET TO SOFT BITES, THIN LIQUIDS NO STRAWS, FEEDER, ASPIRATION PRECAUTIONS, SUCTION AT BEDSIDE IF NEEDED. LS CONGESTED, CLEARS CONGESTION WITH WEAK COUGH, DOES NOT TOLERATE LYING FLAT WELL, ILEOSTOMY LIQUID STOOL. POSSIBLE DISCHARGE TOMORROW, WILL RELAY TO PM RN, HUY
--- NOTE | 2021-06-29 03:45 | NUR ---
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 O2 PER NC AT 2L/MIN. HOB ELEVATED FOR COMFORT. TOLERATES MEDS WITH APPLESAUCE. DENIED PAIN WHEN ASKED. REPOSITIONED WHEN PT ALLOWED IT. IVF INFUSING ORDERED - SEE MAR FOR DETAILS. CALL LIGHT IN REACH. ISOLATION PRECAUTIONS MAINTAINED
[2021-06-29 05:13] LABS: BASOPHILS ABSOLUTE AUTO 0.04 K/mm3 (0.00-0.23); BASOPHILS PERCENT AUTO 0 % (0-2); EOSINOPHILS ABSOLUTE AUTO 0.61 K/mm3 (0.00-0.68); EOSINOPHILS PERCENT AUTO 6 % (0-6); Hematocrit 35.9 % (37.0-53.0); Hemoglobin 10.7 g/dL (13.5-17.5); IMMATURE GRAN ABSOLUTE AUTO 0.03 K/mm3 (0.00-0.10); IMMATURE GRAN PERCENT AUTO 0 % (0-1); LYMPHOCYTES PERCENT AUTO 15 % (21-46); MONOCYTES ABSOLUTE AUTO 0.92 K/mm3 (0.16-1.47); MONOCYTES PERCENT AUTO 10 % (4-13); Mean Corpuscular HGB 24.9 pg (26.0-34.0); Mean Corpuscular HGB Conc 29.8 g/dL (31.5-36.5); Mean Corpuscular Volume 84 fL (80-100); Mean Platelet Volume 9.4 fL (9.1-12.4); NEUTROPHILS ABSOLUTE AUTO 6.65 K/mm3 (1.96-9.15); NEUTROPHILS PERCENT AUTO 69 % (41-73); Platelet Count 267 K/mm3 (150-400); RDW Coefficient Variation 15.7 % (11.7-14.2); RDW Standard Deviation 47.3 fL (35.1-46.3); Red Blood Cell Count 4.29 M/mm3 (4.30-5.90); White Blood Cell Count 9.65 K/mm3 (4.00-11.30)
[2021-06-29 05:49] LABS: Anion Gap 3 mmol/L (6-16); Blood Urea Nitrogen 7 mg/dL (8-24); Bun/Creatinine Ratio 12.2 (12.0-20.0); CO2, Blood 29 mmol/L (21-32); Calcium, Blood 8.4 mg/dL (8.5-10.1); Chloride, Blood 106 mmol/L (98-108); Creatinine, Blood 0.58 mg/dL (0.60-1.20); Glomerular Filtration Rate >60 (60-); Glucose, Blood 113 mg/dL (70-99); Potassium, Blood 3.7 mmol/L (3.5-5.5); Sodium, Blood 138 mmol/L (136-145)
--- NOTE | 2021-06-29 18:14 | NUR ---
SHIFT SUMMARY 11:15 ASSUMED CARE OF PT, RESTING QUIETLY IN BED AFTER RECEIVING BED BATH. DENIED NEEDS AT THAT TIME. PT WAITING TO BE D/C'D BACK TO R/H. PER DR ANDRADE, PT TO BE D/C'D TOMORROW. PT IS PLEASANT AND CO-OP, HX OF MS WITH LIMITED GROSS MOVEMENT IN R ARM AND NO MOVEMENT IN L ARM. PT REQUIRES ASSISTANCE TO EAT, BUT HAS GOOD APPETITE. CHRONIC CLEARY AND OSTOMY. FOAM DRSG TO COCCYX; PREVENTATIVE. DRY EXCORIATED SKIN TO BLE'S; DRGS CHANGED AFTER BED BATH. EAR DROPS PLACED TO R EAR. MEDS WHOLE IN APPLESAUCE. NO C/O PAIN. DENIES FURTHER NEEDS. CALL LT IN REACH.
--- NOTE | 2021-06-30 04:37 | NUR ---
Patient with VSS on 2L NC overnight. Skin ispection reveals no acute skin issues. Patient intermittently confused overnight. Able to swallow pills whole with applesauce. Turned Q2 hrs. Heels floated. Colostomy with soft brown stool. Moy catheter patent, clear yellow urine, QS.
[2021-06-30] MEDS ORDERED: SUCR1 PO (12:42)
[2021-06-30] MEDS ORDERED: PANT40 PO (12:42)
[2021-06-30 14:32] LABS: Influenza A, PCR NEGATIVE (NEGATIVE); Influenza B, PCR NEGATIVE (NEGATIVE); Resp Syncytial Virus, PCR NEGATIVE (NEGATIVE); SARS-Cov-2 (COVID-19) PCR, MMC NEGATIVE (NEGATIVE)
--- NOTE | 2021-06-30 16:25 | NUR ---
PT DISCHARGED TO FACILITY. Pt discharged to facility at 1545. Pt stable, VSS. Moy patent, draining to gravity. Changed colostomy bag this shift. Discharge paperwork given to transport. Pt left at 1545.
== END 2021-06-30 15:42 | DRG 871 ==
LOC: ER 07:30 → PCU 12:09 → MEDS 06-27 18:46
PROVIDERS: Family Medicine; Pharmacist; Student in an Organized Health Care Education/Training Program; ADMIT Internal Medicine
PROC: 3E03329 Introduction of Other Anti-infective into Peripheral Vein, Percutaneous Approach (ICD-10-PCS; 2021-06-25)
PROC: 0DJ08ZZ Inspection of Upper Intestinal Tract, Via Natural or Artificial Opening Endoscopic (ICD-10-PCS; principal; 2021-06-25 14:00)
DX: A41.9 Sepsis, unspecified organism (principal); G82.50 Quadriplegia, unspecified; J69.0 Pneumonitis due to inhalation of food and vomit; K20.91 Esophagitis, unspecified with bleeding; K56.7 Ileus, unspecified; F41.8 Other specified anxiety disorders; Z51.5 Encounter for palliative care; F03.90 Unspecified dementia, unspecified severity, without behavioral disturbance, psychotic disturbance, mood disturbance, and anxiety; Z96.1 Presence of intraocular lens; I48.91 Unspecified atrial fibrillation; N21.1 Calculus in urethra; K31.84 Gastroparesis; E16.2 Hypoglycemia, unspecified; Z66 Do not resuscitate; R13.10 Dysphagia, unspecified; D64.9 Anemia, unspecified; K21.9 Gastro-esophageal reflux disease without esophagitis; D72.829 Elevated white blood cell count, unspecified; I95.9 Hypotension, unspecified; G47.33 Obstructive sleep apnea (adult) (pediatric); G35 Multiple sclerosis; Z20.822 Contact with and (suspected) exposure to COVID-19; E66.9 Obesity, unspecified; I25.10 Atherosclerotic heart disease of native coronary artery without angina pectoris; Z79.01 Long term (current) use of anticoagulants; Z87.440 Personal history of urinary (tract) infections; Z86.718 Personal history of other venous thrombosis and embolism; Z86.711 Personal history of pulmonary embolism; Z98.42 Cataract extraction status, left eye; Z98.41 Cataract extraction status, right eye; Z93.2 Ileostomy status; Z98.890 Other specified postprocedural states; Z79.899 Other long term (current) drug therapy; Z91.041 Radiographic dye allergy status; Z88.5 Allergy status to narcotic agent; Z88.2 Allergy status to sulfonamides; Z91.09 Other allergy status, other than to drugs and biological substances
CPT/HCPCS: 0241U; 36415; 36416; 51702; 71045; 74018; 74177; 80048; 80053; 80076; 81001; 82947; 83605; 83690; 83735; 83880; 84145; 84484; 85014; 85018; 85025; 85610; 85730; 87040; 87086; 92610; 93005; 93010; 94762; 96365-59; 96366-59; 96375-59; 99285-25; A9270; C9113; J0696; J0713; J1450; J1644; J2405; J2550; J2704; J3370; J7030; J7040; J7060; J7120; Q9967

== ENCOUNTER → 2021-07-22 | Outpatient (CLI) | payer OTHER ==
[~2021-07-22] MED LIST changes: +ACTIVE PO; +Acetaminophen325 M1 PO; +LOPE2C PO; +MUPIROCIN22 G9 TOP; +PANT40 PO; +PIPERACIL TAZO IV; +RENACIDIN; +SUCR1 PO; +[UNRECOGNIZED DRUG - OTHER] PO
[2021-07-22 18:29] LABS: BASOPHILS ABSOLUTE AUTO 0.03 K/mm3 (0.00-0.23); BASOPHILS PERCENT AUTO 0 % (0-2); EOSINOPHILS ABSOLUTE AUTO 0.46 K/mm3 (0.00-0.68); EOSINOPHILS PERCENT AUTO 7 % (0-6); Hematocrit 36.1 % (37.0-53.0); Hemoglobin 10.5 g/dL (13.5-17.5); IMMATURE GRAN ABSOLUTE AUTO 0.01 K/mm3 (0.00-0.10); IMMATURE GRAN PERCENT AUTO 0 % (0-1); LYMPHOCYTES ABSOLUTE AUTO 1.24 K/mm3 (0.84-5.20); LYMPHOCYTES PERCENT AUTO 18 % (21-46); MONOCYTES ABSOLUTE AUTO 0.85 K/mm3 (0.16-1.47); MONOCYTES PERCENT AUTO 13 % (4-13); Mean Corpuscular HGB 24.6 pg (26.0-34.0); Mean Corpuscular HGB Conc 29.1 g/dL (31.5-36.5); Mean Corpuscular Volume 85 fL (80-100); Mean Platelet Volume 9.2 fL (9.1-12.4); NEUTROPHILS ABSOLUTE AUTO 4.22 K/mm3 (1.96-9.15); NEUTROPHILS PERCENT AUTO 62 % (41-73); Platelet Count 277 K/mm3 (150-400); RDW Coefficient Variation 14.5 % (11.7-14.2); RDW Standard Deviation 44.6 fL (35.1-46.3); Red Blood Cell Count 4.27 M/mm3 (4.30-5.90); White Blood Cell Count 6.81 K/mm3 (4.00-11.30)
[2021-07-22 18:52] LABS: Albumin, Blood 2.6 g/dL (3.4-5.0); Albumin/Globulin Ratio 0.7 (0.8-1.8); Bilirubin, Total 0.3 mg/dL (0.1-1.0); Bun/Creatinine Ratio 24.2 (12.0-20.0); Calcium, Blood 8.6 mg/dL (8.5-10.1); Creatinine, Blood 0.62 mg/dL (0.60-1.20); Globulin, Blood 3.9 g/dL (2.2-4.0); International Normalized Ratio 1.02; Potassium, Blood 3.8 mmol/L (3.5-5.5); Prothrombin Time Results 10.7 Sec (9.7-11.5); Total Protein, Blood 6.5 g/dL (6.4-8.2)
== END | disposition home or self-care (01) ==
LOC: EDSTATUS 15:01 → LAB RH 17:20
PROVIDERS: Internal Medicine
DX: E87.6 Hypokalemia (principal); N39.0 Urinary tract infection, site not specified; R65.10 Systemic inflammatory response syndrome (SIRS) of non-infectious origin without acute organ dysfunction
CPT/HCPCS: 80053; 85025; 85610

== ENCOUNTER → 2021-07-27 | Outpatient (CLI) | payer OTHER ==
[2021-07-29 08:36] LABS: SARS-Cov-2 (COVID-19) PCR, MMC NEGATIVE (NEGATIVE)
== END | disposition home or self-care (01) ==
LOC: LAB RH 14:12 → EDSTATUS 15:01
PROVIDERS: Internal Medicine
DX: U07.1 COVID-19 (principal)
CPT/HCPCS: U0004

== ENCOUNTER 2021-07-31 09:23 | Inpatient (IN) | payer OTHER ==
[~2021-07-31] VITALS: Ht 198.1 cm; Wt 115.2 kg
[~2021-07-31 09:23] MED LIST changes: -Acetaminophen325 M1 PO; -LOPE2C PO; -MUPIROCIN22 G9 TOP; -PIPERACIL TAZO IV; -RENACIDIN
[2021-07-31] MEDS ORDERED: CIPR500 PO (09:38)
[2021-07-31] MEDS ORDERED: Acetaminophen325 M1 PO (09:43)
[2021-07-31 10:17] LABS: BASOPHILS ABSOLUTE AUTO 0.03 K/mm3 (0.00-0.23); BASOPHILS PERCENT AUTO 0 % (0-2); EOSINOPHILS ABSOLUTE AUTO 0.01 K/mm3 (0.00-0.68); EOSINOPHILS PERCENT AUTO 0 % (0-6); Hematocrit 43.7 % (37.0-53.0); Hemoglobin 12.8 g/dL (13.5-17.5); IMMATURE GRAN ABSOLUTE AUTO 0.11 K/mm3 (0.00-0.10); IMMATURE GRAN PERCENT AUTO 1 % (0-1); LYMPHOCYTES ABSOLUTE AUTO 0.62 K/mm3 (0.84-5.20); LYMPHOCYTES PERCENT AUTO 3 % (21-46); MONOCYTES ABSOLUTE AUTO 2.07 K/mm3 (0.16-1.47); MONOCYTES PERCENT AUTO 10 % (4-13); Mean Corpuscular HGB 24.8 pg (26.0-34.0); Mean Corpuscular HGB Conc 29.3 g/dL (31.5-36.5); Mean Corpuscular Volume 85 fL (80-100); NEUTROPHILS ABSOLUTE AUTO 18.24 K/mm3 (1.96-9.15); NEUTROPHILS PERCENT AUTO 87 % (41-73); Platelet Count 279 K/mm3 (150-400); RDW Coefficient Variation 14.8 % (11.7-14.2); RDW Standard Deviation 46.1 fL (35.1-46.3); Red Blood Cell Count 5.17 M/mm3 (4.30-5.90); White Blood Cell Count 21.08 K/mm3 (4.00-11.30)
[2021-07-31 10:37] LABS: Albumin, Blood 3.2 g/dL (3.4-5.0); Albumin/Globulin Ratio 0.7 (0.8-1.8); Bilirubin, Total 0.8 mg/dL (0.1-1.0); Bun/Creatinine Ratio 11.6 (12.0-20.0); Calcium, Blood 8.9 mg/dL (8.5-10.1); Creatinine, Blood 0.78 mg/dL (0.60-1.20); Globulin, Blood 4.8 g/dL (2.2-4.0); Magnesium, Blood 1.8 mg/dL (1.6-2.4); Potassium, Blood 4.2 mmol/L (3.5-5.5)
[2021-07-31 11:05] LABS: Source, Urine Foley catheter
[2021-07-31 11:06] LABS: SARS-Cov-2 (COVID-19) PCR, MMC NEGATIVE (NEGATIVE)
[2021-07-31 11:09] LABS: Bilirubin, Urine Neg (Neg); Blood, Urine 5+ (Neg); Glucose Qualitative, Urine Neg (Neg); Ketones, Urine 1+ (Neg); Leukocyte Esterase, Urine 1+ (Neg); Nitrite, Urine Neg (Neg); Protein, Urine 4+ (Neg); Specific Gravity, Urine 1.015 (1.003-1.022); Urobilinogen, Urine NORM (Normal)
[2021-07-31 11:20] LABS: Appearance, Urine Bloody (Clear); Color, Urine Red (P-Yellow)
[2021-07-31 11:22] LABS: Bacteria Rare /hpf; Red Blood Cells, Urine TNTC /hpf (0-2); Squamous Epithelial Cells Rare /hpf (Few)
--- NOTE | 2021-07-31 23:06 | NUR ---
Assumed care of pt at 1900. Lethargic and difficult to arouse, but once awake able to answer all orientation questions, A/Ox4. LS dim t/o, 2L NC (patient baseline) satting 99-100%. Chronic acevedo replaced in ED with probe acevedo, draining large amounts of dark red urine. was made aware, no new orders. Temperature reached peak of 102.6, rectal tylenol administered, cooling blanket, fan, 2 ice packs, and cold washcloth on forehead. An hour later, temp is 102.0. BP started downtrending with MAP <65, MD called and new orders for bolus obtained. Patient is NPO with a ST consult placed for risk of aspiration. Ileostomy in RLQ draining brown liquid. SCD's placed for DVT prophylaxis. 2+ pitting edema both feet - patients baseline.
--- NOTE | 2021-07-31 23:25 | NUR ---
UPDATE Patient's MAP continued to be below 65 despite fluid resuscitation, ICU charge aware. Obtained orders from MD to transfer to ICU 7. Report given to JULIETH Brody.
--- NOTE | 2021-08-01 00:50 | NUR ---
ASSUMED PT CARE AT 2335 FROM JULIETH SEGURA PT ARRIVED ON UNIT SECONDARY TO HYPOTENSION WITH MAP <65 MMHG. PT ALERT AND ORIENTED X4. DROWSY, BUT ABLE TO MAINTAIN ALERTNESS DURING CONVERSATION. BP CUFF SLIGHTLY BIG FOR ARM; THEREFORE, CHANGED OUT TO SMALLER SIZE WITH MAP AROUND 65 MMHG. OBTAINED NEW IV ACCESS IN CASE LEVOPHED WAS NEEDED TO BE INITIATED; 20G TO RIGHT UPPER ARM. 1L BOLUS FINISHED INFUSING VIA POWERGLIDE TO RIGHT UPPER ARM. DR. CHAZ FORD WITH STARTING LOW DOSE LEVOPHED PERIPHERALLY; GOOD BLOOD RETURN FROM NEWLY PLACED 20G. D/C'D 22G TO CHEST. PT HAS A HX OF MS AND IS BEDBOUND. DRESSINGS IN PLACE TO BLE'S WITH SCD'S OVER; PICTURES IN CHART. +3 PITTING EDEMA TO L FOOT/ANKLE. +2 PITTING EDEMA TO R FOOT/ANKLE. PT HAS AN ILEOSTOMY TO RIGHT ABDOMEN WITH LIQUID GREEN OUTPUT; 300CC EMPTIED. CHRONIC CLEARY CATHETER IN PLACE WITH DARK RED OUTPUT NOTED. PER REPORT MD AWARE WITH NO NEW ORDERS. PT CHRONICALLY ON 2L OF OXYGEN VIA BASELINE; HOWEVER SWITCHED OVER TO ETCO2 NC WITH SPO2 100% AND ETCO2 33 MMHG. PT NOTED TO BE NSR WITH HR 70'S. NS INFUSING AT 150ML/HR. VANCO AND ZOSYN INFUSING. UPON PT FALLING ASLEEP MAP DROPPED BELOW 65 MMHG; THEREFORE, LEVOPHED STARTED AT 2MCG/MIN. SEE SHIFT ASSESSMENT FOR FURTHER DETAILS.
[2021-08-01 04:36] LABS: BASOPHILS ABSOLUTE AUTO 0.07 K/mm3 (0.00-0.23); BASOPHILS PERCENT AUTO 0 % (0-2); EOSINOPHILS ABSOLUTE AUTO 0.02 K/mm3 (0.00-0.68); EOSINOPHILS PERCENT AUTO 0 % (0-6); Hematocrit 35.5 % (37.0-53.0); Hemoglobin 10.4 g/dL (13.5-17.5); IMMATURE GRAN ABSOLUTE AUTO 0.09 K/mm3 (0.00-0.10); IMMATURE GRAN PERCENT AUTO 1 % (0-1); LYMPHOCYTES ABSOLUTE AUTO 0.57 K/mm3 (0.84-5.20); LYMPHOCYTES PERCENT AUTO 3 % (21-46); MONOCYTES PERCENT AUTO 11 % (4-13); Mean Corpuscular HGB 24.9 pg (26.0-34.0); Mean Corpuscular HGB Conc 29.3 g/dL (31.5-36.5); Mean Corpuscular Volume 85 fL (80-100); Mean Platelet Volume 9.3 fL (9.1-12.4); NEUTROPHILS ABSOLUTE AUTO 14.86 K/mm3 (1.96-9.15); NEUTROPHILS PERCENT AUTO 85 % (41-73); Platelet Count 262 K/mm3 (150-400); RDW Coefficient Variation 14.9 % (11.7-14.2); RDW Standard Deviation 46.5 fL (35.1-46.3); Red Blood Cell Count 4.18 M/mm3 (4.30-5.90); White Blood Cell Count 17.51 K/mm3 (4.00-11.30)
[2021-08-01 04:58] LABS: Albumin, Blood 2.3 g/dL (3.4-5.0); Anion Gap 9 mmol/L (6-16); Blood Urea Nitrogen 10 mg/dL (8-24); Bun/Creatinine Ratio 13.2 (12.0-20.0); CO2, Blood 26 mmol/L (21-32); Calcium, Blood 8.3 mg/dL (8.5-10.1); Chloride, Blood 108 mmol/L (98-108); Creatinine, Blood 0.76 mg/dL (0.60-1.20); Glomerular Filtration Rate 100 (60-); Glucose, Blood 113 mg/dL (70-99); Phosphorus, Blood 3.3 mg/dL (2.5-4.9); Potassium, Blood 3.7 mmol/L (3.5-5.5); Sodium, Blood 143 mmol/L (136-145)
--- NOTE | 2021-08-01 05:49 | NUR ---
END OF SHIFT SUMMARY PT HAS BEEN SLEEPING MOST OF SHIFT. EASY TO AROUSE AND STILL ANSWERS QUESTIONS APPROPRIATELY. LEVOPHED REMAINS AT 5MCG/MIN WITH MAP >65MMHG. PT HAS BEEN NOTED TO BE IN A WANDERING ATRIAL PACEMAKER RHYTHM WITH RATE 50'S WHILE SLEEPING AND UP TO THE 80'S WHILE AWAKE. OXYGEN REMAINS AT 2L VIA NC WITH ETCO2 39 MMHG. PT REQUIRES TOTAL ASSIST WITH TURNS D/T IMMOBILITY. HE IS ONLY ABLE TO MOVE HIS RIGHT ARM. NO FINE MOTOR MOVEMENTS D/T DX OF MS. CALL LIGHT CHANGED OUT TO A TOUCH PAD. NO MOVEMENTS NOTED TO OTHER EXTREMITIES. HE DOES C/O NUMBNESS/TINGLING TO ALL EXTREMITIES. VERY SENSITIVE TO HEAT/COLD. TEMP GOT LOW 100.9; HOWEVER, HAS SLOWLY STARTED TO RISE AGAIN WITH TEMP AT 101.7 WILL ATTEMPT COLD CLOTH AND FAN. PT DIDN'T TOLERATE ICE PACKS AND STARTED SHIVERING EARLIER. ILEOSTOMY PATENT AND PUT OUT 600CC OF GREEN WATERY STOOL. CLEARY REMAINS PATENT AND DRAINING DARK BLOODY URINE TO GRAVITY. NS CONTINUES TO INFUSE VIA POWERGLIDE TO ANANDA AT 150ML/HR. LEVOPHED VIA 20G TO ANANDA. WILL CONTINUE TO MONITOR UNTIL REPORT IS HANDED OFF TO ONCOMING RN.
[2021-08-01 08:19] LABS: Base Excess Venous -0.4 mmol/L; Bicarbonate Venous 24.1 mmol/L (24.0-30.0); PCO2 Venous 41.2 mmHg (38-42); pH Blood Venous 7.39 (7.34-7.37)
--- NOTE | 2021-08-01 08:59 | NUR ---
ASSUMED CARE REPORT FROM KRISTIN CLANCY AT 0700. PT RESTING IN BED. WAKES c VERBAL STIMULI. PT TAKES A MOMENT TO ORIENT. ONCE FULLY AWAKE, A&OX 3. C/O PAIN TO BILATERAL EARS. NEEDS ENCOURAGEMENT TO COMPLETE ASSESSMENT. LUNGS COARSE THROUGHOUT. WEAK MOIST COUGH. 2L VIA NC, BASELINE. SB, RATE 50-60'S. LEVO GTT FOR MAP>65. INFUSING VIA PIV TO RUE, GOOD BLOOD RETURN. NS 150 ML/HR. ABD ROUND, SOFT, NON TENDER. BT X 4. ILEOSTOMY TO RLQ, BROWN LIQUID SENT TO LAB FOR GI PANEL. CLEARY PATENT, DRAINING ABRAN RED URINE TO GRAVITY, SENT TO LAB. 2/3+ EDEMA TO BLE. WILL CONTINUE TO MONITOR.
[2021-08-01 09:45] LABS: C DIFFICILE DNA NEGATIVE (Negative)
[2021-08-01 13:48] LABS: Adenovirus F 40/41 Not Detected (NOT DETECT); Astrovirus Not Detected (NOT DETECT); Campylobacter Sp Not Detected (NOT DETECT); Cryptosporidium Not Detected (NOT DETECT); Cyclospora Cayetanensis Not Detected (NOT DETECT); E. Coli O157 Not Detected (NOT DETECT); Entamoeba Histolytica Not Detected (NOT DETECT); Enteroaggregative E. coli-EAEC Not Detected (NOT DETECT); Enteropathogenic E. coli-EPEC Not Detected (NOT DETECT); Enterotoxigenic E. coli-ETEC Not Detected (NOT DETECT); Giardia Lamblia Not Detected (NOT DETECT); Norovirus GI/GII Not Detected (NOT DETECT); Plesiomonas Shigelloides Not Detected (NOT DETECT); Rotavirus A Not Detected (NOT DETECT); Salmonella Sp Not Detected (NOT DETECT); Sapovirus Not Detected (NOT DETECT); Shiga Toxin-prod E. coli-STEC Not Detected (NOT DETECT); Shigella/Enteroin E. coli-EIEC Not Detected (NOT DETECT); Vibrio Cholerae Not Detected (NOT DETECT); Vibrio Sp Not Detected (NOT DETECT); Yersinia Enterocolitica Not Detected (NOT DETECT)
--- NOTE | 2021-08-01 17:41 | NUR ---
SHIFT SUMMARY NO ACUTE CHANGES THIS SHIFT. PT REMAINS ON LEVO GTT FOR MAP>65, INFUSING AT 3 MCG/MIN. CHANGED TO POWERGLIDE, GOOD BLOOD RETURN. SB, RATE 50'S. 2L VIA NC, LUNGS COARSE c WET COUGH. UNABLE TO PRODUCE SPUTUM SAMPLE. A&OX 3. FOLLOWS COMMANDS, ANSWERS QUESTIONS APPROPRIATELY. MORE INTERACTIVE THAN THIS AM. FAILED SPEECH EVAL, REMAINS NPO. IVF CHANGED TO D5 IN LR AT 100 ML/HR. STOOL PANEL NEG. 550 ML LIQUID BROWN OUT ILEOSTOMY. CLEARY PATENT, DRAINED 500 ML CLOUDY ABRAN RED URINE TO GRAVITY. SEE SKIN ASSESSMENT AND PHOTOS IN CHART, WOUND CONSULT ORDERED. TURNS Q2. WILL CONTINUE TO MONITOR UNTIL REPORT TO ONCOMING NURSE.
[2021-08-01] MEDS ORDERED: SIME80CH PO (20:08)
--- NOTE | 2021-08-01 20:27 | NUR ---
Assumed Care. AOx3, slow to respond, mumbled speech at times but is able to clear it up. MS, bedbound, unable to move BLE, limited BUE. Numbness and tingling at baseline. Bilateral ear pain, ear drops were given. LS crackles LLL, diminished t/o. Cough occational, moist, unable to get secreations up. Sats 99% on 4 L NC. ETCO2-36. Sinus Vinny on monitor rate in the 50's. Denies CP or plapitations. +2-3 edema BLE, elevated on pillows, Foot Drop noted. Ileostomy with liquid yellow brown, 250cc emptied. Stoma pink budded. Ostomy appliance intact. Cath with red tinged urine, recent stent placed in the left kidney r/t to kidney stone. States it was with in last week. Will monitor output. Skin is pale, warm. BLE with adaptic dressings, absorbant over then wrapped with gauze. Several small ulcers and scabs noted all in different healing stages. coccyx red, attends dry. Levophed infusing at 3mcq, TKO to IV site and Picc line. Will continue to monitor.
--- NOTE | 2021-08-01 23:12 | NUR ---
ASSUMED CARE AT 2300 AND RECEIVED REPORT FROM JUAN F CLANCY. CURRENTLY PT IS RESTING COMFORTABLY IN BED, CALL LIGHT WITHIN REACH. AO, SLURRED SPEECH INTERMITTENTLY WHICH IS BASELINE PER MD NOTES AND JULIETH ROGEL.
[2021-08-02 00:43] LABS: Vancomycin, Trough 17.2 ug/mL (5.0-10.0)
[2021-08-02 04:59] LABS: BASOPHILS ABSOLUTE AUTO 0.04 K/mm3 (0.00-0.23); BASOPHILS PERCENT AUTO 0 % (0-2); EOSINOPHILS ABSOLUTE AUTO 0.28 K/mm3 (0.00-0.68); EOSINOPHILS PERCENT AUTO 3 % (0-6); Hematocrit 32.6 % (37.0-53.0); Hemoglobin 9.7 g/dL (13.5-17.5); Mean Corpuscular HGB 24.8 pg (26.0-34.0); Mean Corpuscular HGB Conc 29.8 g/dL (31.5-36.5); Mean Corpuscular Volume 83 fL (80-100); Mean Platelet Volume 9.3 fL (9.1-12.4); Platelet Count 223 K/mm3 (150-400); RDW Coefficient Variation 14.7 % (11.7-14.2); RDW Standard Deviation 44.9 fL (35.1-46.3); Red Blood Cell Count 3.91 M/mm3 (4.30-5.90)
[2021-08-02 05:07] LABS: IMMATURE GRAN ABSOLUTE AUTO 0.03 K/mm3 (0.00-0.10); IMMATURE GRAN PERCENT AUTO 0 % (0-1); LYMPHOCYTES ABSOLUTE AUTO 0.79 K/mm3 (0.84-5.20); LYMPHOCYTES PERCENT AUTO 9 % (21-46); MONOCYTES ABSOLUTE AUTO 1.25 K/mm3 (0.16-1.47); MONOCYTES PERCENT AUTO 14 % (4-13); NEUTROPHILS ABSOLUTE AUTO 6.71 K/mm3 (1.96-9.15); NEUTROPHILS PERCENT AUTO 74 % (41-73)
[2021-08-02 05:55] LABS: Albumin/Globulin Ratio 0.5 (0.8-1.8); Bilirubin, Total 0.4 mg/dL (0.1-1.0); Bun/Creatinine Ratio 13.1 (12.0-20.0); Calcium, Blood 8.1 mg/dL (8.5-10.1); Creatinine, Blood 0.77 mg/dL (0.60-1.20); Globulin, Blood 3.8 g/dL (2.2-4.0); Potassium, Blood 2.8 mmol/L (3.5-5.5); Total Protein, Blood 5.8 g/dL (6.4-8.2)
--- NOTE | 2021-08-02 06:00 | NUR ---
SHIFT SUMMARY: PT AOX3 (PLACE, PERSON, SITUATION), CAN MOVE RIGHT UPPER EXTREMITY TO USE TOUCH CALL LIGHT. LEFT UPPER EXT AND BILAT LOWER LEGS DO NOT MOVE TO ANY STIMULI. Q2H TURNS DUE TO IMMOBILITY AND SKIN INTEGRITY. POOR FRAGILE SKIN WITH WOUNDS ON LEGS. PT ALSO SPEAKS VERY SLOWLY IN 1-2 WORDS AT A TIME, INTERMITTENTLY UNABLE TO UNDERSTAND PT DUE TO SLURRED SPEECH WHICH IS BASELINE FOR THE PT DUE TO MS. ON 2L NASAL CANNULA. LUNG SOUNDS ARE DIMINISHED WITH SOME CRACKLES. WET WEAK COUGH AND UNABLE TO PRODUCE SPUTUM TO FOR A SAMPLE. SINUS HENRI WITH PVCs. REMAINS ON LEVOPHED DRIP TO KEEP MAP >65. FEBRILE WITH TMAX 100.5. EXTREMELY EDEMATOUS. LIMBS ARE ELEVATED ON PILLOWS. PULSES ARE PALPABLE RADIALLY, DOPPLER USED FOR PEDAL PULSES. ILEOSTOMY BAG REMAINS INTACT. CLEARY CATHETER ALSO PATENT WITH DARK RED OUTPUT.
--- NOTE | 2021-08-02 07:34 | NUR ---
Received repoprt from Lizzy CLANCY. Patient awake in bed and is able to communicate simple needs with slow speech. We repositioned and boosted. He is on 2L O2 via NC and sats 99%. He has 18ga IV RLFA and was infusing Levophed 4mcg/min and now is currently on SB with MAP >65. He also has 20ga IV to ANANDA and is infusing D5-LR at 100 ml/hr and NS TKO. He has Ileostomy to RLQ, dressing intact and brown liquid output. He has 16Fr temp acevedo draing to gravity mckeon red output, flushed for patentcy and temp of 98.7. Patient stated he is to refuse SCD use per Dr Love and removed, he is on Eliquis. Patient has bilateral LE dressing wrapped in Curlexfrom knees to ankles. Patient has bilateral foot drop and 3+ pitting edema to feet, pink padded boot to right foot.
--- NOTE | 2021-08-02 10:59 | NUR ---
Medicated patient for pain per MAY. He has been resting and cooperative with care. Repositioned and boosted in bed. Both hospitalist have been by and assessed see new orders. ST to re-eval today. He remains on 2L O2 via NC and sats 100%.
--- NOTE | 2021-08-02 11:30 | NUR ---
Patient resting and awakens for care, repositioned and boosted in bed. He remains off Levophed since this am and systolics 90-100's. He remains on 2L O2 as he does at home and sats >95%. He continues with Potassium riders, D5-LR at 10 m l/hr, and NS TKO. Temp acevedo remains patent and continues to have mckeon red urine. LE's bilaterally elevated r/t swelling.
--- NOTE | 2021-08-02 13:40 | NUR ---
Medicated for pain per MAR. Started second Potassium rider and wu bags of D5-LR and NS. Patient continues with no distal extremity movement. Ileostomy remains patent with dark brown liquid.
--- NOTE | 2021-08-02 15:39 | NUR ---
ASSUMED CARE: PT RECEIVED FROM ICU BY JULIETH Morrison, TRANSFERRED TO BED BY LIFT. PT SATTING >95% AT RA, SINUS RHTYM IN 80'S, SBP IN 110'S. TKO IVF RUNNING IN RFA, POTASSIUM AND D5LR RUNING THROUGH POWERGLIDE IN ANANDA. CLEARY CATHETER PATENT AND DRAINING CLOUDY RED URINE TO GRAVITY. ILLEOSTOMY APPLIANCE LOCATED ON R SIDE, C/D/I. TOUCHPAD WITHIN REACH, NO ACUTE NEEDS/DISTRESS AT THIS TIME.
--- NOTE | 2021-08-02 17:51 | NUR ---
SHIFT SUMMARY: PT A&OX4, SLOW TO RESPOND. PT SATTING >95% AT RA, SINUS RHYTHM IN 80'S, SBP MAINTAING 110'S. PT ARRIVED FROM ICU AT 1540 AND WAS TRASFERRED TO BED VIA LIFT. PT IS Q2 TURNS AND CALLS APPROPRIATELY WITH THE TOUCH PAD. PT IS ABLE TO SWALLOW NECTAR THICK LIQUIDS AND CRUSHED MEDICATIONS WITHOUT DIFFICULTY. TEMP CLEARY PATENT AND DRAINING RED URINE TO GRAVITY. ILLEOSTOMY IN PLACE IN RLQ, DRAINING BROWN LIQUID, APPLIANCE IS C/D/I. NO ACUTE NEEDS/DISTRESS AT THIS TIME.
--- NOTE | 2021-08-02 20:52 | NUR ---
Assumed care 1900. VSS on RA sating 97-100%. Meds given in applesauce without any issues. Repositioned and ileostomy emptied. Will continue to monitor.
[2021-08-03 03:41] LABS: BASOPHILS ABSOLUTE AUTO 0.04 K/mm3 (0.00-0.23); BASOPHILS PERCENT AUTO 1 % (0-2); EOSINOPHILS ABSOLUTE AUTO 0.41 K/mm3 (0.00-0.68); EOSINOPHILS PERCENT AUTO 6 % (0-6); Hematocrit 30.3 % (37.0-53.0); IMMATURE GRAN ABSOLUTE AUTO 0.02 K/mm3 (0.00-0.10); IMMATURE GRAN PERCENT AUTO 0 % (0-1); LYMPHOCYTES ABSOLUTE AUTO 0.81 K/mm3 (0.84-5.20); LYMPHOCYTES PERCENT AUTO 12 % (21-46); MONOCYTES ABSOLUTE AUTO 0.71 K/mm3 (0.16-1.47); MONOCYTES PERCENT AUTO 11 % (4-13); Mean Corpuscular HGB 24.5 pg (26.0-34.0); Mean Corpuscular HGB Conc 29.7 g/dL (31.5-36.5); Mean Corpuscular Volume 82 fL (80-100); Mean Platelet Volume 9.6 fL (9.1-12.4); NEUTROPHILS ABSOLUTE AUTO 4.52 K/mm3 (1.96-9.15); NEUTROPHILS PERCENT AUTO 70 % (41-73); Platelet Count 242 K/mm3 (150-400); RDW Coefficient Variation 14.8 % (11.7-14.2); Red Blood Cell Count 3.68 M/mm3 (4.30-5.90); White Blood Cell Count 6.51 K/mm3 (4.00-11.30)
[2021-08-03 04:01] LABS: Albumin, Blood 1.9 g/dL (3.4-5.0); Albumin/Globulin Ratio 0.5 (0.8-1.8); Bilirubin, Total 0.3 mg/dL (0.1-1.0); Bun/Creatinine Ratio 12.2 (12.0-20.0); Calcium, Blood 8.1 mg/dL (8.5-10.1); Creatinine, Blood 0.65 mg/dL (0.60-1.20); Globulin, Blood 3.5 g/dL (2.2-4.0); Potassium, Blood 3.2 mmol/L (3.5-5.5); Total Protein, Blood 5.4 g/dL (6.4-8.2)
--- NOTE | 2021-08-03 04:37 | NUR ---
[employer] Note: Pt is A&O, slow to respond. Pt has hx of MS and limited movement in extremities. Pt uses right arm to hit soft touch call light. Pt is turned Q2hrs. VSS on RA. Pt has ileostomy in place, quite a bit of brown liquid stool overnight. Moy is in place and started at a mckeon red color and did lighten up and became more luz maria throughout the night, per MD michael was held. Pt is in contact iso for ESBL in urine. Pt makes needs kknown. D5/LR running at 100ml/hr. Wounds BLE that are wrapped, mepalex on coccyx. All extremities have edema. Tele: SR 70-80s. Pt took meds crushed in applesauce per BILINGUAL STUDENT TUTOR recommendation. Pt tolerated thickened liquids and applesauce overnight. Pt reports he lives at [facility]. Lift used for transfers and repositioning.
--- NOTE | 2021-08-03 08:00 | NUR ---
INITIAL ASSESSMENT: Patient is awake, alert and oriented. He is C/O 8/10 BLE pain- he states his normal dose of gabapentin ususally relieves the pain. He also C/O N/T in his BLE, his arms, and his hands. He cannot move his legs, or his left arm. He has minimal use of his right hand. HRR, SR in the 70s. LS DIM in the bases, biox 100% on RA. BT hypoactive, illestomy in place, draining brown/green liquid stool. PPP, pt has 3+ pitting edema to BLE. Wounds to BLE with petroleum gauze and kerlex covering. VSS. Oral and cath care done at this time. AM medications given with applesauce. Potassium 3.2 this AM, total of 40 meq po given at this time. I talked with Dr. Pineda about restarting his Eliquis this AM, it was held prior due to blood in urine. MD would like to try and restart it, will monitor. Patient repositioned to his left side. He denies other needs at this time. Soft touch call light in reach.
--- NOTE | 2021-08-03 12:00 | NUR ---
Update: Patient has been down graded to medical status no telemetry. Ostomy appliance changed. Patient is resting comfortably in bed. He denies other needs at this time. Soft touch call light in reach, will contine to monitor.
--- NOTE | 2021-08-03 18:24 | NUR ---
Summary: Patient had a great morning, he was alert and conversive with staff. Through out the afternoon he slept more but he is more alert this evening. He C/O pain in both of his ears t/o the day and BLE pain, he was medicated with ear drops and gabapentin for pain. HRR, SR in the 80s this am, he is now off telemetry. LS Dim in the bases, Biox 100% on RA. Pt has dry NPC, suction at bedside. BT+, he has had quite a bit of green/brown liquid stool through his illestomy. His ostomy appliance was changed this shift. PPP, he has 3+ pitting edema to BLE. [place] boots to RLE for pts foot drop. VSS this shift. Patients diet was updated this shift to [facility] soft with thin liquids per speech therapy. Patient is resting comfortably at this time. Soft touch call light in reach, will report to oncoming RN.
--- NOTE | 2021-08-03 21:11 | NUR ---
Assumed care 1900. VSS on RA, bp soft, but MAP is still >65. Ileostomy emptied. acevedo is dark in color, but does not appear to be red anymore. Tele: SR 70-80s.
--- NOTE | 2021-08-04 01:42 | NUR ---
Pt tranferred to Medical floor, report given to Lina CLANCY. Shift note: Pt A&O, slow to respond. CREEK. Pt makes needs known and uses the soft touch call light. No movement in BLE and left arm, but is able to use right arm and press call light. LR/D5 100ml/hr. IV abx given per orders. Ileostomy draining brown liquid stool. VSS on RA, BP soft but MAP is >65. Q2 hr turns completed.
[2021-08-04 05:30] LABS: BASOPHILS ABSOLUTE AUTO 0.05 K/mm3 (0.00-0.23); BASOPHILS PERCENT AUTO 1 % (0-2); EOSINOPHILS ABSOLUTE AUTO 0.46 K/mm3 (0.00-0.68); EOSINOPHILS PERCENT AUTO 7 % (0-6); Hematocrit 32.4 % (37.0-53.0); Hemoglobin 9.6 g/dL (13.5-17.5); IMMATURE GRAN ABSOLUTE AUTO 0.01 K/mm3 (0.00-0.10); IMMATURE GRAN PERCENT AUTO 0 % (0-1); LYMPHOCYTES ABSOLUTE AUTO 1.02 K/mm3 (0.84-5.20); LYMPHOCYTES PERCENT AUTO 17 % (21-46); MONOCYTES ABSOLUTE AUTO 0.73 K/mm3 (0.16-1.47); MONOCYTES PERCENT AUTO 12 % (4-13); Mean Corpuscular HGB 24.4 pg (26.0-34.0); Mean Corpuscular HGB Conc 29.6 g/dL (31.5-36.5); Mean Corpuscular Volume 82 fL (80-100); Mean Platelet Volume 9.3 fL (9.1-12.4); NEUTROPHILS ABSOLUTE AUTO 3.91 K/mm3 (1.96-9.15); NEUTROPHILS PERCENT AUTO 63 % (41-73); Platelet Count 299 K/mm3 (150-400); RDW Coefficient Variation 14.6 % (11.7-14.2); RDW Standard Deviation 44.6 fL (35.1-46.3); Red Blood Cell Count 3.93 M/mm3 (4.30-5.90); White Blood Cell Count 6.18 K/mm3 (4.00-11.30)
[2021-08-04 05:39] LABS: Albumin/Globulin Ratio 0.5 (0.8-1.8); Bilirubin, Total 0.4 mg/dL (0.1-1.0); Bun/Creatinine Ratio 11.1 (12.0-20.0); Calcium, Blood 8.4 mg/dL (8.5-10.1); Creatinine, Blood 0.72 mg/dL (0.60-1.20); Globulin, Blood 3.9 g/dL (2.2-4.0); Potassium, Blood 3.7 mmol/L (3.5-5.5); Total Protein, Blood 5.9 g/dL (6.4-8.2)
--- NOTE | 2021-08-04 06:32 | NUR ---
@0143 PT TX TO ROOM 345 FROM PCU VIA BED, PT VSS, DENIES PAIN OR SOB AT THIS TIME; ORIIENTED TO ROOM AND STAFF. SOFT TOUCH CALL LIGHT IN PLACE.
--- NOTE | 2021-08-04 09:10 | NUR ---
CALLED MD- PT HAS VERY DARK LIQUID STOOL WITH SOME COFFE GROUND DARK SEDIMENT. RECIEVED ORDER FOR ANJALI.
--- NOTE | 2021-08-04 10:16 | NUR ---
PT DECLINED THE MUCINEX THIS MORNING- WHEN MORNING MEDS WERE TO BE GIVEN THE PT SPECIFICALLY STATED NO MUCINEX. WHEN IT CAME TIME FOR THE NEXT BAG OF FLUIDS THE PT STATED HE DOESNT WANT THEM, SPOKE TO THE PT ABOUT HIS LOW BP AND THE PT BECAME WILLING TO TAKE THE IV FLUIDS AT THIS TIME.
[2021-08-04 13:56] LABS: Influenza A, PCR NEGATIVE (NEGATIVE); Influenza B, PCR NEGATIVE (NEGATIVE); Resp Syncytial Virus, PCR NEGATIVE (NEGATIVE); SARS-Cov-2 (COVID-19) PCR, MMC NEGATIVE (NEGATIVE)
[2021-08-04] MEDS ORDERED: PIPERACIL TAZO IV (13:57)
[2021-08-04 14:00] LABS: Stool Occult Blood Guaiac 1 Neg (Neg)
--- NOTE | 2021-08-04 15:39 | NUR ---
PT ROLLED AND CHANGED- SPOUNGE BATH PERFORMED, COCCYX MEPILEX CHANGED, BLE DRESSING CHANGES.
--- NOTE | 2021-08-04 16:03 | NUR ---
DISCHARGE NOTE- PT WAS DC'D BACK TO [facility], CALLED REPORT TO [facility]. PT TAKEN VIA GURNEY TRANSPORT NO S&S OF DISTRESS NOTED AT THE TIME OF DISCHARGE. PERIPHERAL IV'S DC'D PG IN PLACE ANANDA. ALL DRESSINGS CHANGED PRIOR TO DISCHARGE.
== END 2021-08-04 15:55 | DRG 871 ==
LOC: ER 09:23 → PCU 12:39 → ICUE 12:39 → PCU 14:02 → ICUE 23:32 → PCU 08-02 15:12 → MEDS 08-04 01:34
PROVIDERS: Family Medicine; Nurse Practitioner Acute Care; Student in an Organized Health Care Education/Training Program; ADMIT Internal Medicine
PROC: 3E03329 Introduction of Other Anti-infective into Peripheral Vein, Percutaneous Approach (ICD-10-PCS; principal; 2021-07-31)
PROC: 3E033XZ Introduction of Vasopressor into Peripheral Vein, Percutaneous Approach (ICD-10-PCS; 2021-07-31)
DX: A41.9 Sepsis, unspecified organism (principal); R53.2 Functional quadriplegia; J18.9 Pneumonia, unspecified organism; T83.511A Infection and inflammatory reaction due to indwelling urethral catheter, initial encounter; I48.20 Chronic atrial fibrillation, unspecified; E87.2 Acidosis; J96.11 Chronic respiratory failure with hypoxia; R65.20 Severe sepsis without septic shock; Z20.822 Contact with and (suspected) exposure to COVID-19; N31.9 Neuromuscular dysfunction of bladder, unspecified; R13.10 Dysphagia, unspecified; Z66 Do not resuscitate; F41.8 Other specified anxiety disorders; F03.90 Unspecified dementia, unspecified severity, without behavioral disturbance, psychotic disturbance, mood disturbance, and anxiety; K21.9 Gastro-esophageal reflux disease without esophagitis; I95.9 Hypotension, unspecified; I25.10 Atherosclerotic heart disease of native coronary artery without angina pectoris; E87.6 Hypokalemia; H92.03 Otalgia, bilateral; Z96.1 Presence of intraocular lens; B96.5 Pseudomonas (aeruginosa) (mallei) (pseudomallei) as the cause of diseases classified elsewhere; Z99.81 Dependence on supplemental oxygen; Z93.2 Ileostomy status; Z86.711 Personal history of pulmonary embolism; Z86.718 Personal history of other venous thrombosis and embolism; Z87.440 Personal history of urinary (tract) infections; Z87.442 Personal history of urinary calculi; Z98.890 Other specified postprocedural states; Z98.41 Cataract extraction status, right eye; Z98.42 Cataract extraction status, left eye; Z88.2 Allergy status to sulfonamides; Z88.5 Allergy status to narcotic agent; Z88.1 Allergy status to other antibiotic agents; Z88.6 Allergy status to analgesic agent; Z88.8 Allergy status to other drugs, medicaments and biological substances; Z79.01 Long term (current) use of anticoagulants; Z79.899 Other long term (current) drug therapy; Y84.6 Urinary catheterization as the cause of abnormal reaction of the patient, or of later complication, without mention of misadventure at the time of the procedure
CPT/HCPCS: 0241U; 36415; 51702; 70487; 71045; 74176; 80053; 80069; 80202; 81001; 82272; 82803; 83605; 83735; 84132; 84145; 85025; 87040; 87077; 87086; 87186; 87449; 87493; 87507; 92526; 92610; 93005; 93010; 94762; 96365-59; 96367-59; 99285-25; A9270; C1751; C9113; J0692; J0713; J2543; J3010; J3370; J3480; J7030; J7060; J7121; Q9967; U0004

== ENCOUNTER 2021-08-08 14:53 | Emergency (ER) | payer OTHER ==
[~2021-08-08] VITALS: Ht 182.9 cm; Wt 136.1 kg
[~2021-08-08 14:53] MED LIST changes: +Acetaminophen325 M1 PO; +PIPERACIL TAZO IV
[2021-08-08 15:45] LABS: BASOPHILS ABSOLUTE AUTO 0.05 K/mm3 (0.00-0.23); BASOPHILS PERCENT AUTO 0 % (0-2); EOSINOPHILS ABSOLUTE AUTO 0.34 K/mm3 (0.00-0.68); EOSINOPHILS PERCENT AUTO 3 % (0-6); Hematocrit 35.6 % (37.0-53.0); Hemoglobin 10.4 g/dL (13.5-17.5); IMMATURE GRAN ABSOLUTE AUTO 0.05 K/mm3 (0.00-0.10); IMMATURE GRAN PERCENT AUTO 0 % (0-1); LYMPHOCYTES ABSOLUTE AUTO 0.57 K/mm3 (0.84-5.20); LYMPHOCYTES PERCENT AUTO 5 % (21-46); MONOCYTES PERCENT AUTO 12 % (4-13); Mean Corpuscular HGB 24.3 pg (26.0-34.0); Mean Corpuscular HGB Conc 29.2 g/dL (31.5-36.5); Mean Corpuscular Volume 83 fL (80-100); NEUTROPHILS ABSOLUTE AUTO 9.01 K/mm3 (1.96-9.15); NEUTROPHILS PERCENT AUTO 80 % (41-73); Platelet Count 374 K/mm3 (150-400); RDW Standard Deviation 45.6 fL (35.1-46.3); Red Blood Cell Count 4.28 M/mm3 (4.30-5.90); White Blood Cell Count 11.32 K/mm3 (4.00-11.30)
[2021-08-08 16:03] LABS: Albumin, Blood 2.2 g/dL (3.4-5.0); Albumin/Globulin Ratio 0.5 (0.8-1.8); Bilirubin, Total 0.3 mg/dL (0.1-1.0); Bun/Creatinine Ratio 12.6 (12.0-20.0); Calcium, Blood 8.8 mg/dL (8.5-10.1); Creatinine, Blood 0.72 mg/dL (0.60-1.20); Globulin, Blood 4.6 g/dL (2.2-4.0); Total Protein, Blood 6.8 g/dL (6.4-8.2)
[2021-08-08 16:03] LABS: Source, Urine Foley catheter
[2021-08-08 16:07] LABS: Influenza A, PCR NEGATIVE (NEGATIVE); Influenza B, PCR NEGATIVE (NEGATIVE); Resp Syncytial Virus, PCR NEGATIVE (NEGATIVE); SARS-Cov-2 (COVID-19) PCR, MMC NEGATIVE (NEGATIVE)
[2021-08-08 16:09] LABS: Appearance, Urine Cloudy (Clear); Bilirubin, Urine Neg (Neg); Blood, Urine 5+ (Neg); Glucose Qualitative, Urine Neg (Neg); Ketones, Urine Neg (Neg); Leukocyte Esterase, Urine 3+ (Neg); Nitrite, Urine Neg (Neg); Protein, Urine 2+ (Neg); Urobilinogen, Urine NORM (Normal)
[2021-08-08 16:17] LABS: International Normalized Ratio 1.07; Prothrombin Time Results 11.2 Sec (9.7-11.5)
[2021-08-08 16:51] LABS: Color, Urine Pale Yellow (P-Yellow)
[2021-08-08 17:07] LABS: White Blood Cells, Urine TNTC /hpf (0-5)
[2021-08-08 17:09] LABS: Bacteria Mod /hpf; Squamous Epithelial Cells Rare /hpf (Few)
[2021-08-08 17:11] LABS: Yeast/Fungi Urine Many /hpf
== END 2021-08-08 21:53 | disposition home or self-care (01) ==
LOC: ER 14:53
PROVIDERS: Physician Assistant
DX: R50.9 Fever, unspecified (principal); N13.2 Hydronephrosis with renal and ureteral calculous obstruction; I71.4 Abdominal aortic aneurysm, without rupture; K21.9 Gastro-esophageal reflux disease without esophagitis; I25.10 Atherosclerotic heart disease of native coronary artery without angina pectoris; Z88.1 Allergy status to other antibiotic agents; Z88.2 Allergy status to sulfonamides; Z88.8 Allergy status to other drugs, medicaments and biological substances; Z91.048 Other nonmedicinal substance allergy status; Z87.891 Personal history of nicotine dependence
CPT/HCPCS: 0241U; 36415; 71045; 74176; 80053; 81001; 83605; 85025; 85610; 85730; 87040; 87086; 93005; 93010; 96365; 99284-25; A9270; J0744; J7030

== ENCOUNTER 2021-10-04 17:17 | Inpatient (IN) | payer OTHER ==
[~2021-10-04] VITALS: Ht 198.1 cm; Wt 102.5 kg
[2021-10-04 19:51] LABS: Albumin/Globulin Ratio 0.6 (0.8-1.8); Bilirubin, Total 0.4 mg/dL (0.1-1.0); Bun/Creatinine Ratio 16.7 (12.0-20.0); Calcium, Blood 9.3 mg/dL (8.5-10.1); Creatinine, Blood 0.66 mg/dL (0.60-1.20); Globulin, Blood 5.1 g/dL (2.2-4.0); Potassium, Blood 4.6 mmol/L (3.5-5.5); Total Protein, Blood 8.1 g/dL (6.4-8.2)
[2021-10-04 20:17] LABS: BASOPHILS ABSOLUTE AUTO 0.04 K/mm3 (0.00-0.23); BASOPHILS PERCENT AUTO 0 % (0-2); EOSINOPHILS ABSOLUTE AUTO 0.37 K/mm3 (0.00-0.68); EOSINOPHILS PERCENT AUTO 2 % (0-6); Hematocrit 43.2 % (37.0-53.0); Hemoglobin 12.6 g/dL (13.5-17.5); IMMATURE GRAN ABSOLUTE AUTO 0.06 K/mm3 (0.00-0.10); IMMATURE GRAN PERCENT AUTO 0 % (0-1); LYMPHOCYTES ABSOLUTE AUTO 1.15 K/mm3 (0.84-5.20); LYMPHOCYTES PERCENT AUTO 8 % (21-46); MONOCYTES ABSOLUTE AUTO 1.35 K/mm3 (0.16-1.47); MONOCYTES PERCENT AUTO 9 % (4-13); Mean Corpuscular HGB 23.3 pg (26.0-34.0); Mean Corpuscular HGB Conc 29.2 g/dL (31.5-36.5); Mean Corpuscular Volume 80 fL (80-100); Mean Platelet Volume 8.8 fL (9.1-12.4); NEUTROPHILS ABSOLUTE AUTO 12.32 K/mm3 (1.96-9.15); NEUTROPHILS PERCENT AUTO 81 % (41-73); Platelet Count 382 K/mm3 (150-400); RDW Coefficient Variation 16.6 % (11.7-14.2); RDW Standard Deviation 47.6 fL (35.1-46.3); White Blood Cell Count 15.29 K/mm3 (4.00-11.30)
[2021-10-05 05:12] LABS: BASOPHILS ABSOLUTE AUTO 0.05 K/mm3 (0.00-0.23); BASOPHILS PERCENT AUTO 0 % (0-2); EOSINOPHILS ABSOLUTE AUTO 0.33 K/mm3 (0.00-0.68); EOSINOPHILS PERCENT AUTO 3 % (0-6); Hematocrit 38.3 % (37.0-53.0); Hemoglobin 11.6 g/dL (13.5-17.5); IMMATURE GRAN ABSOLUTE AUTO 0.03 K/mm3 (0.00-0.10); IMMATURE GRAN PERCENT AUTO 0 % (0-1); LYMPHOCYTES ABSOLUTE AUTO 1.48 K/mm3 (0.84-5.20); LYMPHOCYTES PERCENT AUTO 12 % (21-46); MONOCYTES ABSOLUTE AUTO 1.43 K/mm3 (0.16-1.47); MONOCYTES PERCENT AUTO 12 % (4-13); Mean Corpuscular HGB 23.9 pg (26.0-34.0); Mean Corpuscular HGB Conc 30.3 g/dL (31.5-36.5); Mean Corpuscular Volume 79 fL (80-100); Mean Platelet Volume 8.6 fL (9.1-12.4); NEUTROPHILS ABSOLUTE AUTO 9.03 K/mm3 (1.96-9.15); NEUTROPHILS PERCENT AUTO 73 % (41-73); Platelet Count 352 K/mm3 (150-400); RDW Coefficient Variation 16.6 % (11.7-14.2); RDW Standard Deviation 47.7 fL (35.1-46.3); Red Blood Cell Count 4.86 M/mm3 (4.30-5.90); White Blood Cell Count 12.35 K/mm3 (4.00-11.30)
[2021-10-05 05:37] LABS: Bun/Creatinine Ratio 12.6 (12.0-20.0); Calcium, Blood 8.8 mg/dL (8.5-10.1); Creatinine, Blood 0.8 mg/dL (0.60-1.20); Potassium, Blood 4.1 mmol/L (3.5-5.5)
[2021-10-05 06:04] LABS: Source, Urine Straight Cath
[2021-10-05 06:07] LABS: Appearance, Urine Hazy (Clear); Bilirubin, Urine Neg (Neg); Blood, Urine 4+ (Neg); Color, Urine Yellow (P-Yellow); Glucose Qualitative, Urine Neg (Neg); Ketones, Urine Neg (Neg); Leukocyte Esterase, Urine 3+ (Neg); Nitrite, Urine Neg (Neg); Protein, Urine 2+ (Neg); Specific Gravity, Urine 1.015 (1.003-1.022); Urobilinogen, Urine NORM (Normal)
[2021-10-05 06:20] LABS: White Blood Cells, Urine 50-100 /hpf (0-5)
[2021-10-05 06:23] LABS: Granular Casts 0-2 /lpf (0); Hyaline Casts 0-2 /lpf (0-2); Mucus Light (0-Heavy); Squamous Epithelial Cells Not Seen /hpf (Few)
[2021-10-05 06:25] LABS: Bacteria Few /hpf
--- NOTE | 2021-10-05 06:48 | NUR ---
ADMIT NOTE AND SHIFT SUMMARY PT ARRIVED TO PCU AT APPROX MIDNIGHT. PT WAS SLID FROM ED STRETCHER TO PCU BED BY 5 STAFF. PT A&OX4. SP02>90% ON 2L NC. PT HAS WET PRODUCTIVE COUGH, SUCTIONED THICK WHITE SPUTUM. TELEMETRY SHOWS SINUS TACH, 100'S, BP SOFT. PT C/O OF LEG PAIN, CALL PLACED TO MD ANDRADE TO GET EVNING DOSE OF GABAPENTIN. CLEARY CATHETER DRAINING YELLOW URINE, URINE SENT TO LAB. ILEOSTOMY W/ BROWN LOOSE STOOL, EMPTIED. POWERGLIDE PLACED IN ANANDA. NS BOLUS INFUSING UPON ADMIT. FLUIDS INFUSING CURRENTLY PER EMAR. PT SLEPT SECOND HALF OF SHIFT. REPOSITIONED Q2H. CALL LIGHT INREACH.
--- NOTE | 2021-10-05 14:55 | NUR ---
AM/AFTERNOON NOTE: PATIENT ALERT AND ORIENTED X3-4. GARBELED SPEECH. ABLE TO MAKE NEEDS KNOWN. USING CALL LIGHT. NUMBNESS AND TINGLING TO EXTREMITIES. ON PO GABAPENTIN. CALL PLACED TO [facility] TO OBTAIN MED REC. SPOKE WITH DR. ARCOS THIS AM TO COMPLETE MED REC. Q2 TURNING AND NEEDED. NO MOVEMENT IN BILATERAL LOWER EXTREMITIES AND BILATERAL FOOT DROP. GROSS MOVEMENT IN BILATERAL UPPER EXTREMITIES. NO FINE MOTOR MOVEMENTS. ON 2L NASAL CANNULA SATING ABOE 94%. PATIENT STATES HE ALWAYS WEARS 2L. WET PRODUCTIVE COUGH, SUCTION AT BEDSIDE. LUNGS SOUNDING COARSE IN UPPER LOBES AND DIM IN BASES. DR. NGUYEN IN TO ASSESS IV FLUIDS. PLAN TO CONTINUE THEM AT THIS TIME. THIS RN WILL CONTINUE TO MONITOR RESP AND FLUID STATUS. SPUTUM THICK AND WHITE IN COLOR. TELE SHOWING SINUS RHYTHM WITH HR 80-90'S. DENIES CHEST PAIN/PRESSURE. BP ON SOFTER SIDE. DENIES ABDOMINAL PAIN/NAUSEA. ILEOSOMY BAG IN PLACE WITH LOOSE BROWN OUTPUT. OSOTOMY WNL. CHRONIC CLEARY IN PLACE CHANGED IN ED. DRAINING YELLOW/CLEAR URINE TO GRAVITY. CATH CARE COMPLETED THIS AM AND WITH TURNS. TAKING PO WITH FEEDING ASSISTANCE. NO SAFETY CONCERNS NOTED WITH SWALLOW FROM THIS RN STANDPOINT. LARGE PRESSURE ULCER TO COCCYX, SEE CHART IN PICTURE. STAGE 2-3. WOUND CONSULT IN PLACE, ALTHOUGH NEIDA FROM WOUND CENTER SAID SHE WOULD NOT BE ABLE TO SEE PATIENT TILL SUNDAY. DR. NGUYEN IN TO ASSESS PRESSURE ULCER HIMSELF AND RATED IT A STAGE 2. ORDERS TO CONTINUE WITH WOUND CARE AND MEPILEX. BILATERAL SHINS WITH ABRASION LIKE BLISTERS. PATIENT STATES HE SCRATCHED HIS LEGS INITIALLY ON TABLE AND THEN THEY REOPENED WITH THE SCRUBBING OF A WASH CLOTH. CLEANED AND REDRESSED WITH XEROFORM, ABD PAD AND KERILIX. CALL LIGHT IN REACH. ORAL CARE AND SMALL BED BATH COMPLETED THIS MORNING. WILL CONTINUE TO MONITOR.
[2021-10-05] MEDS ORDERED: MUPIROCIN22 G9 TOP (15:10)
[2021-10-05] MEDS ORDERED: RENACIDIN (15:12)
--- NOTE | 2021-10-05 15:15 | NUR ---
MED REC COMPLETED WITH DOCUMENTS FROM [facility]. DR. ARCOS CALLED AND UPDATED. NO NEW ORDERS FOR THIS RN.
--- NOTE | 2021-10-05 17:48 | NUR ---
SHIFT SUMMARY: NO ACUTE CHANGES THIS SHIFT. NO CHANGES TO NEURO. Q2 TURNS AND NEEDED. PATIENT COMPLAINS OF LEG PAIN AND REQUESTING GABAPENTIN. SEE EMAR. DENIES CHEST PAIN/PRESSURE. TELE REMAINS SINUS RHYTHM - SINUS TACH WITH HR 80-100'S. ILEOSTOMY REMAINS WNL. CLEARY DRAINING TO GRAVITY. PATIENT PASSING SWALLOW EVAL BUT COUGHING AT TIMES AFTER INTAKE. MOST OF DINNER HELD AND PLAN FOR SPEECH THERAPY IN AM. SPOKE WITH DR. NGUYEN AND UPDATED ON THIS RN CONCERNS FOR ASPIRATION. STOPPED LR, SALINE LOCKED. CALL LIGHT IN REACH. WILL CONTINUE TO MONITOR AND REPORT OFF.
[2021-10-06 05:14] LABS: BASOPHILS ABSOLUTE AUTO 0.05 K/mm3 (0.00-0.23); BASOPHILS PERCENT AUTO 1 % (0-2); EOSINOPHILS PERCENT AUTO 5 % (0-6); IMMATURE GRAN ABSOLUTE AUTO 0.03 K/mm3 (0.00-0.10); IMMATURE GRAN PERCENT AUTO 0 % (0-1); LYMPHOCYTES ABSOLUTE AUTO 1.44 K/mm3 (0.84-5.20); LYMPHOCYTES PERCENT AUTO 14 % (21-46); MONOCYTES PERCENT AUTO 11 % (4-13); Mean Corpuscular HGB 23.6 pg (26.0-34.0); Mean Corpuscular HGB Conc 29.7 g/dL (31.5-36.5); Mean Corpuscular Volume 79 fL (80-100); Mean Platelet Volume 8.7 fL (9.1-12.4); NEUTROPHILS ABSOLUTE AUTO 6.89 K/mm3 (1.96-9.15); NEUTROPHILS PERCENT AUTO 69 % (41-73); Platelet Count 331 K/mm3 (150-400); RDW Coefficient Variation 16.4 % (11.7-14.2); RDW Standard Deviation 46.7 fL (35.1-46.3); Red Blood Cell Count 4.66 M/mm3 (4.30-5.90); White Blood Cell Count 10.01 K/mm3 (4.00-11.30)
[2021-10-06 05:56] LABS: Bun/Creatinine Ratio 15.7 (12.0-20.0); Calcium, Blood 9.2 mg/dL (8.5-10.1); Creatinine, Blood 0.77 mg/dL (0.60-1.20); Potassium, Blood 3.9 mmol/L (3.5-5.5)
--- NOTE | 2021-10-06 05:57 | NUR ---
SHIFT SUMMARY NO ACUTE CHANGES THIS SHIFT. PT DID NOT SLEEP MUCH DURING NIGHT, ALERT. SP02>90% ON 2L NC. TELEMETRY MOSTLY NSR, HR 80'S-100'S. CLEARY CATHETER DRAINING YELLOW URINE TO GRAVITY. ILEOSTOMY EMPTIED LOOSE BROWN STOOL. GABAPENTIN GIVEN AT 0100 INSTEAD OF 2100 PER PT REQUEST. REPOSITIONED Q2H. CALL LIGHT IN REACH.
--- NOTE | 2021-10-06 12:01 | NUR ---
Patient is lying inbed and resting when I enter the . He slightly opens his eyes while I intro myself and does not speak. I ask if he would like prayer before he goes back to resting and he nods to indicate "yes." I provide prayer. Pt responds well and opens his eyes more fully at the conclusion of the prayer and looks me in the eye and smiles and nods affirmingly. I will continue to remain avialble to pt and family.
--- NOTE | 2021-10-06 18:47 | NUR ---
NO ACUTE CHANGES T/O THE SHIFT. PT TURNED AND REPOSITIONED AT LEAST EVERY TWO HOURS. DRESSING TO COCCYX REMOVED, WOUND CLEANSED AND DRESSSING REAPPLIED. DRs IN ROOM TO SEE WOUND AT THIS TIME. ILEOSTOMY WITH DRK GREEN STOOL AND FLATUS. CLEARY CATHETER DRAINING TO GRAVITY, URINE YELLOW AND CLEAR, NO FOUL ODOR NOTED. PT PASSED SWALLOW EVAL THIS AM AND HAS SWALLOW PRECAUTIONS POSTED IN HIS ROOM. PT TOLERATED MEALS AND PO MEDICATIONS W/O INCIDENT T/O SHIFT. PT DID C/O OF ITCHING TO HIS HEAD, DR WILKERSON NOTIFIED AND ORDERS RECEIVED. CALL LIGHT IN REACH, PT DEMONSTRATES ABILITY TO USE, WILL GIVE REPORT TO NOC SHIFT RN.
[2021-10-07 05:41] LABS: BASOPHILS ABSOLUTE AUTO 0.05 K/mm3 (0.00-0.23); BASOPHILS PERCENT AUTO 1 % (0-2); EOSINOPHILS ABSOLUTE AUTO 0.47 K/mm3 (0.00-0.68); EOSINOPHILS PERCENT AUTO 6 % (0-6); Hematocrit 36.9 % (37.0-53.0); Hemoglobin 10.8 g/dL (13.5-17.5); IMMATURE GRAN ABSOLUTE AUTO 0.01 K/mm3 (0.00-0.10); IMMATURE GRAN PERCENT AUTO 0 % (0-1); LYMPHOCYTES ABSOLUTE AUTO 1.59 K/mm3 (0.84-5.20); LYMPHOCYTES PERCENT AUTO 19 % (21-46); MONOCYTES ABSOLUTE AUTO 0.78 K/mm3 (0.16-1.47); MONOCYTES PERCENT AUTO 10 % (4-13); Mean Corpuscular HGB Conc 29.3 g/dL (31.5-36.5); Mean Corpuscular Volume 79 fL (80-100); Mean Platelet Volume 8.7 fL (9.1-12.4); NEUTROPHILS ABSOLUTE AUTO 5.33 K/mm3 (1.96-9.15); NEUTROPHILS PERCENT AUTO 65 % (41-73); Platelet Count 354 K/mm3 (150-400); RDW Coefficient Variation 16.3 % (11.7-14.2); RDW Standard Deviation 46.5 fL (35.1-46.3); Red Blood Cell Count 4.69 M/mm3 (4.30-5.90); White Blood Cell Count 8.23 K/mm3 (4.00-11.30)
[2021-10-07 06:11] LABS: Bun/Creatinine Ratio 20.3 (12.0-20.0); Calcium, Blood 8.7 mg/dL (8.5-10.1); Creatinine, Blood 0.74 mg/dL (0.60-1.20); Potassium, Blood 3.8 mmol/L (3.5-5.5)
[2021-10-07 13:11] LABS: Influenza A, PCR NEGATIVE (NEGATIVE); Influenza B, PCR NEGATIVE (NEGATIVE); Resp Syncytial Virus, PCR NEGATIVE (NEGATIVE)
[2021-10-07 13:32] LABS: SARS-Cov-2 (COVID-19) PCR, MMC POSITIVE (NEGATIVE)
--- NOTE | 2021-10-07 14:05 | NUR ---
REPORT CALLED TO REJI, STAFF MADE AWARE PT CONTINUES TO TEST POSTIIVE FOR COVID
--- NOTE | 2021-10-07 14:07 | NUR ---
PT DECLINES ASSISTED LIVING COORDINATOR VISIT
--- NOTE | 2021-10-07 15:00 | NUR ---
WOUNDS REDRESSED BY THIS RN, PT THEN RFUSED WOUND CONSULT WITH WOUND NURSE
--- NOTE | 2021-10-07 16:40 | NUR ---
HAND WRITTEN RX FOR ZOSYN SENT WITH PT TO [facility], PER RN AJ THE FACILITY IS CAPABLE TO INFUSING ZOSYN WITHOUT ISSUE. PT'S POWERGLIDE WAS LEFT IN PLACE AT D/C FOR ZOSYN ADMINISTRATION AT [facility]. PT LEFT ON EMS GURNEY WITH ALL BELONGINGS.
== END 2021-10-07 16:44 | DRG 698 ==
LOC: ER 17:17 → PCU 21:48
PROVIDERS: Emergency Medicine; Family Medicine; ADMIT Family Medicine
PROC: 3E03329 Introduction of Other Anti-infective into Peripheral Vein, Percutaneous Approach (ICD-10-PCS; principal; 2021-10-04)
PROC: 8E0ZXY6 Isolation (ICD-10-PCS; 2021-10-07)
DX: T83.511A Infection and inflammatory reaction due to indwelling urethral catheter, initial encounter (principal); A41.52 Sepsis due to Pseudomonas; J18.9 Pneumonia, unspecified organism; U07.1 COVID-19; R65.20 Severe sepsis without septic shock; B37.7 Candidal sepsis; L03.115 Cellulitis of right lower limb; L03.116 Cellulitis of left lower limb; E87.1 Hypo-osmolality and hyponatremia; Z66 Do not resuscitate; N39.0 Urinary tract infection, site not specified; D64.9 Anemia, unspecified; G35 Multiple sclerosis; F32.A Depression, unspecified; F41.9 Anxiety disorder, unspecified; F03.90 Unspecified dementia, unspecified severity, without behavioral disturbance, psychotic disturbance, mood disturbance, and anxiety; K21.9 Gastro-esophageal reflux disease without esophagitis; I25.10 Atherosclerotic heart disease of native coronary artery without angina pectoris; I48.91 Unspecified atrial fibrillation; K20.90 Esophagitis, unspecified without bleeding; E16.2 Hypoglycemia, unspecified; Z96.1 Presence of intraocular lens; N31.9 Neuromuscular dysfunction of bladder, unspecified; L89.152 Pressure ulcer of sacral region, stage 2; Z86.718 Personal history of other venous thrombosis and embolism; Z88.2 Allergy status to sulfonamides; Z88.5 Allergy status to narcotic agent; Z88.8 Allergy status to other drugs, medicaments and biological substances; Z88.1 Allergy status to other antibiotic agents; Z91.041 Radiographic dye allergy status; Z79.899 Other long term (current) drug therapy; Z79.2 Long term (current) use of antibiotics; Z79.01 Long term (current) use of anticoagulants; Z86.711 Personal history of pulmonary embolism; Z98.890 Other specified postprocedural states; Z87.442 Personal history of urinary calculi; Z93.2 Ileostomy status; Z87.891 Personal history of nicotine dependence
CPT/HCPCS: 0241U; 36415; 51702; 71045; 80048; 80053; 81001; 83605; 84145; 85025; 87040; 87077; 87086; 87186; 92526; 92610; 93005; 93010; 96361-59; 96374-59; 99285-25; A9270; C1751; J0696; J7030; J7120

== ENCOUNTER 2022-01-01 14:38 | Inpatient (IN) | payer OTHER ==
[~2022-01-01] VITALS: Ht 172.7 cm; Wt 109.2 kg
[~2022-01-01 14:38] MED LIST changes: +LOPE2C PO; +MUPIROCIN22 G9 TOP; +RENACIDIN
[2022-01-01 16:52] LABS: BASOPHILS ABSOLUTE AUTO 0.04 K/mm3 (0.00-0.23); BASOPHILS PERCENT AUTO 0 % (0-2); EOSINOPHILS ABSOLUTE AUTO 0.06 K/mm3 (0.00-0.68); EOSINOPHILS PERCENT AUTO 0 % (0-6); Hematocrit 43.6 % (37.0-53.0); Hemoglobin 13.2 g/dL (13.5-17.5); IMMATURE GRAN ABSOLUTE AUTO 0.09 K/mm3 (0.00-0.10); IMMATURE GRAN PERCENT AUTO 1 % (0-1); LYMPHOCYTES ABSOLUTE AUTO 0.37 K/mm3 (0.84-5.20); LYMPHOCYTES PERCENT AUTO 3 % (21-46); MONOCYTES ABSOLUTE AUTO 1.68 K/mm3 (0.16-1.47); MONOCYTES PERCENT AUTO 11 % (4-13); Mean Corpuscular HGB 24.6 pg (26.0-34.0); Mean Corpuscular HGB Conc 30.3 g/dL (31.5-36.5); Mean Corpuscular Volume 81 fL (80-100); Mean Platelet Volume 9.1 fL (9.1-12.4); NEUTROPHILS ABSOLUTE AUTO 12.81 K/mm3 (1.96-9.15); NEUTROPHILS PERCENT AUTO 85 % (41-73); Platelet Count 265 K/mm3 (150-400); RDW Coefficient Variation 16.4 % (11.7-14.2); RDW Standard Deviation 48.4 fL (35.1-46.3); Red Blood Cell Count 5.37 M/mm3 (4.30-5.90); White Blood Cell Count 15.05 K/mm3 (4.00-11.30)
[2022-01-01 17:10] LABS: Albumin/Globulin Ratio 0.7 (0.8-1.8); Bilirubin, Total 0.4 mg/dL (0.1-1.0); Bun/Creatinine Ratio 18.8 (12.0-20.0); Calcium, Blood 8.5 mg/dL (8.5-10.1); Creatinine, Blood 0.8 mg/dL (0.60-1.20); Globulin, Blood 4.3 g/dL (2.2-4.0); Potassium, Blood 3.7 mmol/L (3.5-5.5); Total Protein, Blood 7.3 g/dL (6.4-8.2)
[2022-01-01 19:34] LABS: Source, Urine Voided
[2022-01-01 19:53] LABS: Appearance, Urine Hazy (Clear); Bilirubin, Urine Neg (Neg); Blood, Urine 4+ (Neg); Color, Urine Yellow (P-Yellow); Glucose Qualitative, Urine Neg (Neg); Ketones, Urine Neg (Neg); Leukocyte Esterase, Urine 3+ (Neg); Nitrite, Urine Pos (Neg); Protein, Urine 2+ (Neg); Urobilinogen, Urine NORM (Normal)
[2022-01-01 20:07] LABS: Hyaline Casts 0-2 /lpf (0-2); Mucus Light (0-Heavy)
[2022-01-01 20:08] LABS: Red Blood Cells, Urine 0-2 /hpf (0-2)
[2022-01-01 20:09] LABS: Bacteria Many /hpf; Squamous Epithelial Cells Rare /hpf (Few); White Blood Cells, Urine 50-100 /hpf (0-5)
[2022-01-01 20:38] LABS: Influenza A, PCR NEGATIVE (NEGATIVE); Influenza B, PCR NEGATIVE (NEGATIVE); Resp Syncytial Virus, PCR NEGATIVE (NEGATIVE); SARS-Cov-2 (COVID-19) PCR, MMC NEGATIVE (NEGATIVE)
[2022-01-01 23:00] LABS: Base Excess Venous -0.4 mmol/L; Bicarbonate Venous 23.8 mmol/L (24.0-30.0); PCO2 Venous 44.2 mmHg (38-42); pH Blood Venous 7.36 (7.34-7.37)
[2022-01-02 04:25] LABS: BASOPHILS ABSOLUTE AUTO 0.09 K/mm3 (0.00-0.23); BASOPHILS PERCENT AUTO 1 % (0-2); EOSINOPHILS ABSOLUTE AUTO 0.31 K/mm3 (0.00-0.68); EOSINOPHILS PERCENT AUTO 2 % (0-6); Hematocrit 43.2 % (37.0-53.0); Hemoglobin 12.6 g/dL (13.5-17.5); IMMATURE GRAN ABSOLUTE AUTO 0.07 K/mm3 (0.00-0.10); IMMATURE GRAN PERCENT AUTO 0 % (0-1); LYMPHOCYTES ABSOLUTE AUTO 1.01 K/mm3 (0.84-5.20); LYMPHOCYTES PERCENT AUTO 6 % (21-46); MONOCYTES ABSOLUTE AUTO 2.19 K/mm3 (0.16-1.47); MONOCYTES PERCENT AUTO 13 % (4-13); Mean Corpuscular HGB 24.1 pg (26.0-34.0); Mean Corpuscular HGB Conc 29.2 g/dL (31.5-36.5); Mean Corpuscular Volume 83 fL (80-100); Mean Platelet Volume 9.2 fL (9.1-12.4); NEUTROPHILS ABSOLUTE AUTO 13.35 K/mm3 (1.96-9.15); NEUTROPHILS PERCENT AUTO 79 % (41-73); Platelet Count 263 K/mm3 (150-400); RDW Coefficient Variation 16.7 % (11.7-14.2); RDW Standard Deviation 49.8 fL (35.1-46.3); Red Blood Cell Count 5.23 M/mm3 (4.30-5.90); White Blood Cell Count 17.02 K/mm3 (4.00-11.30)
[2022-01-02 04:41] LABS: Bun/Creatinine Ratio 14.6 (12.0-20.0); Calcium, Blood 8.5 mg/dL (8.5-10.1); Creatinine, Blood 0.89 mg/dL (0.60-1.20); Potassium, Blood 3.7 mmol/L (3.5-5.5)
--- NOTE | 2022-01-02 06:09 | NUR ---
A/OX2; SELF AND PLACE. IRRITABLE. 2X ASSIST TO TURN. CLEARY PATENT. DRESSING TO COCCYX WOUND CHANGED, PHOTO TAKEN AND PLACED IN CHART. DENIES PAIN AT THIS TIME. BOGGY HEELS (BLANCHABLE REDNESS); FLOATED ON PILLOWS. NPO D/T ASPIRATION OF WATER THIS SHIFT. TELE: ST WITH HR 110's. BED ALARM SET, CALL LIGHT IN REACH; ENCOURAGED TO MAKE NEEDS KNOWN.
--- NOTE | 2022-01-02 17:19 | NUR ---
SHIFT SUMMARY PT TOLERATING PO WELL, NEEDS ASSISTANCE WITH EATING AND ENCOURAGEMENT TO TAKE SMALL BITES. PT CALLS FOR REPOSITIONIG REGULARILY AND ENJOYS BEING SWITCHED FROM SIDE TO SIDE. CLEARY PATENT AND DRAINING, ILEOSTOMY HAVING GOOD OUTPUT TODAY. DRESSING TO COCCYX CHANGED, CALCIUM ALGINATE PLACED IN WOUND COVERED WITH ADHESIVE FOAM DRESSING. PT TOLERATED WELL.
--- NOTE | 2022-01-03 05:56 | NUR ---
A/OX3-4; FORGETFUL AND OCCASIONALLY DISORIENTED TO TIME. POOR DECISION-MAKING AT TIMES. C/O PAIN TO NECK AND COCCYX; PRN TYLENOL AND SCHEDULED GABAPENTIN GIVEN; SLEEPING AT REASSESSMENTS. Q2 TURN AND EMPTYING OF COLOSTOMY. COLOSTOMY BAG AND LINENS CHANGED S/P LEAK; PATIENT REFUSED HOSPITAL GOWN. COCCYX WOUND DRESSING CHANGED AT 0430. NEW IV PLACED R FOREARM FOR ABX CALL IN REACH AND BED ALARM SET
[2022-01-03 07:59] LABS: BASOPHILS ABSOLUTE AUTO 0.04 K/mm3 (0.00-0.23); BASOPHILS PERCENT AUTO 1 % (0-2); EOSINOPHILS PERCENT AUTO 4 % (0-6); Hemoglobin 11.9 g/dL (13.5-17.5); IMMATURE GRAN ABSOLUTE AUTO 0.02 K/mm3 (0.00-0.10); IMMATURE GRAN PERCENT AUTO 0 % (0-1); LYMPHOCYTES ABSOLUTE AUTO 0.96 K/mm3 (0.84-5.20); LYMPHOCYTES PERCENT AUTO 11 % (21-46); MONOCYTES ABSOLUTE AUTO 1.21 K/mm3 (0.16-1.47); MONOCYTES PERCENT AUTO 14 % (4-13); Mean Corpuscular HGB 24.7 pg (26.0-34.0); Mean Corpuscular HGB Conc 29.8 g/dL (31.5-36.5); Mean Corpuscular Volume 83 fL (80-100); Mean Platelet Volume 9.2 fL (9.1-12.4); NEUTROPHILS ABSOLUTE AUTO 6.04 K/mm3 (1.96-9.15); NEUTROPHILS PERCENT AUTO 71 % (41-73); Platelet Count 235 K/mm3 (150-400); RDW Coefficient Variation 16.6 % (11.7-14.2); RDW Standard Deviation 50.4 fL (35.1-46.3); Red Blood Cell Count 4.81 M/mm3 (4.30-5.90); White Blood Cell Count 8.57 K/mm3 (4.00-11.30)
[2022-01-03 08:16] LABS: Albumin, Blood 2.4 g/dL (3.4-5.0); Albumin/Globulin Ratio 0.6 (0.8-1.8); Bilirubin, Total 0.3 mg/dL (0.1-1.0); Bun/Creatinine Ratio 16.3 (12.0-20.0); Calcium, Blood 8.6 mg/dL (8.5-10.1); Creatinine, Blood 0.86 mg/dL (0.60-1.20); Globulin, Blood 4.3 g/dL (2.2-4.0); Potassium, Blood 3.5 mmol/L (3.5-5.5); Total Protein, Blood 6.7 g/dL (6.4-8.2)
--- NOTE | 2022-01-03 10:58 | NUR ---
PT WITH MANY LIQUID STOOLS AND LOTS OF AIR OUT OF OSTOMY BAG. EMPTYING/BURPING BAG Q 2 HOURS WITH REPOSITIONING. PT IS PRESENTLY FLOATED ON PILLOWS UNDER BACK AND ANKLES. PLEASANT, COOPERATIVE WITH CARE. ATE BREAKFAST. ALERT.
[2022-01-03 14:47] LABS: Influenza A, PCR NEGATIVE (NEGATIVE); Influenza B, PCR NEGATIVE (NEGATIVE); Resp Syncytial Virus, PCR NEGATIVE (NEGATIVE); SARS-Cov-2 (COVID-19) PCR, MMC NEGATIVE (NEGATIVE)
--- NOTE | 2022-01-03 16:44 | NUR ---
RN CALLED REPORT TO NURSE CARLITO AT [facility]. A POWERGLIDE WAS INSERTED INTO PT'S RIGHT UPPER ARM. HE RECEIVED HIS 1600 DOSE OF VANCOMYCIN, HIS NEXT DOSE OF VANCO IS MIDNIGHT. LOOSE WATERY BM'S FROM OSTOMY. DECUB ULCER ON COCCYX IS PACKED WITH CALCIUM ALGINATE. PRESENTLY, PT IS FLOATED ON PILLOWS. HIS CLEARY IS DRAINING DARK YELLOW URINE TO GRAVITY. ROOM AIR. FACILITY DISCHARGE PACKET COMPLETED BY CARE MANAGMENT. AWAITING TRANSPORT FROM [facility] SCHEDULED AT 1800 TODAY.
--- NOTE | 2022-01-03 18:43 | NUR ---
PT WAS TRANSFERRED FROM HOSPITAL TO [facility] VIA GURNEY FROM [facility]. PT WAS TRANSFERRED USING SLIDE SHEET. POWERGLIDE IN [place] IS INFUSING AND PATENT, BUT DOES NOT DRAW. CLEARY DRAINING TO GRAVITY. OSTOMY SEAL IS SECURE, OUTPUT LIQUID STOOL. PT IS ROOM AIR. FACE SHEET AND TRANSFER PACKET AND PERSONAL BELONGINGS GIVEN TO [facility]. RN HAD ALREADY CALLED REPORT TO NURSE CARLITO AT [facility]. PT TOLERATED TRANSFER PROCEDURE WELL.
[2022-01-04] MEDS ORDERED: MEROPENEM1 G1 IV (08:52)
[2022-01-04] MEDS ORDERED: Vancomycin1 GM/2501 IV (08:54)
[2022-01-04] MEDS ORDERED: VISBIOME 112.51 EACH PO (08:55)
== END 2022-01-03 18:27 | DRG 872 ==
LOC: ER 14:38 → MEDS 22:54
PROVIDERS: Emergency Medicine; Family Medicine; Student in an Organized Health Care Education/Training Program; ADMIT Family Medicine
DX: A41.81 Sepsis due to Enterococcus (principal); N39.0 Urinary tract infection, site not specified; R65.20 Severe sepsis without septic shock; G35 Multiple sclerosis; I25.10 Atherosclerotic heart disease of native coronary artery without angina pectoris; I10 Essential (primary) hypertension; F03.90 Unspecified dementia, unspecified severity, without behavioral disturbance, psychotic disturbance, mood disturbance, and anxiety; K21.9 Gastro-esophageal reflux disease without esophagitis; I48.91 Unspecified atrial fibrillation; Z96.1 Presence of intraocular lens; Z20.822 Contact with and (suspected) exposure to COVID-19; Z88.6 Allergy status to analgesic agent; Z88.1 Allergy status to other antibiotic agents; Z88.5 Allergy status to narcotic agent; Z88.0 Allergy status to penicillin; Z88.8 Allergy status to other drugs, medicaments and biological substances; Z91.048 Other nonmedicinal substance allergy status; Z86.718 Personal history of other venous thrombosis and embolism; Z86.711 Personal history of pulmonary embolism; Z87.442 Personal history of urinary calculi; Z98.42 Cataract extraction status, left eye; Z98.41 Cataract extraction status, right eye; Z93.2 Ileostomy status; Z79.01 Long term (current) use of anticoagulants; Z79.899 Other long term (current) drug therapy; Z87.891 Personal history of nicotine dependence
CPT/HCPCS: 0241U; 36415; 71045; 80048; 80053; 81001; 82803; 83605; 85025; 87040; 87077; 87086; 87186; 92526; 92610; 93005; 93010; 96365; 96366; 96367; 99285-25; A9270; J0692; J2185; J2543; J3370; J7030; J7050

== ENCOUNTER → 2022-01-06 | Outpatient (CLI) | payer OTHER ==
[~2022-01-06] MED LIST changes: +AUGMENTIN 500-1 EACH PO; +BICARSIM FORTE125 MG PO; +Cyclobenzaprine5 MG PO; +Diflucan100 MG PO; +JUVEN PACKET1 EAC3 PO; +MEROPENEM1 G1 IV; +MONUROL3 GM PO; +MULVITA PO; -PANT40 PO; +PROBIOTIC1 EA13 PO; +Promod946 ML PO; +Vancomycin1 GM/2501 IV
[2022-01-06 19:33] LABS: Anion Gap 7 mmol/L (6-16); Blood Urea Nitrogen 16 mg/dL (8-24); Bun/Creatinine Ratio 19.5 (12.0-20.0); CO2, Blood 25 mmol/L (21-32); Calcium, Blood 8.2 mg/dL (8.5-10.1); Chloride, Blood 106 mmol/L (98-108); Creatinine, Blood 0.82 mg/dL (0.60-1.20); Glomerular Filtration Rate 98 (60-); Glucose, Blood 85 mg/dL (70-99); Potassium, Blood 4.5 mmol/L (3.5-5.5); Sodium, Blood 138 mmol/L (136-145); Vancomycin, Trough 29.7 ug/mL (5.0-10.0)
== END | disposition home or self-care (01) ==
LOC: EDSTATUS 08:35 → LAB RH 17:36
PROVIDERS: Internal Medicine
DX: A41.9 Sepsis, unspecified organism (principal)
CPT/HCPCS: 80048; 80202

== ENCOUNTER → 2022-01-08 | Outpatient (CLI) | payer OTHER ==
[2022-01-08 12:15] LABS: Vancomycin, Trough 18.1 ug/mL (5.0-10.0)
== END | disposition home or self-care (01) ==
LOC: EDSTATUS 08:36 → LAB RH 11:46
PROVIDERS: Internal Medicine
DX: A41.9 Sepsis, unspecified organism (principal)
CPT/HCPCS: 80202

== ENCOUNTER 2022-01-09 09:59 | Emergency (ER) | payer OTHER ==
[~2022-01-09] VITALS: Ht 198.1 cm; Wt 108.9 kg
[~2022-01-09 09:59] MED LIST changes: -AUGMENTIN 500-1 EACH PO; -BICARSIM FORTE125 MG PO; -Cyclobenzaprine5 MG PO; -Diflucan100 MG PO; -JUVEN PACKET1 EAC3 PO; -MONUROL3 GM PO; -MULVITA PO; +PANT40 PO; -PROBIOTIC1 EA13 PO; -Promod946 ML PO
== END 2022-01-09 14:41 | disposition home or self-care (01) ==
LOC: ER 09:59
DX: Z45.2 Encounter for adjustment and management of vascular access device (principal); N39.0 Urinary tract infection, site not specified; B95.2 Enterococcus as the cause of diseases classified elsewhere; I10 Essential (primary) hypertension; K21.9 Gastro-esophageal reflux disease without esophagitis; Z88.2 Allergy status to sulfonamides; Z88.5 Allergy status to narcotic agent; Z88.8 Allergy status to other drugs, medicaments and biological substances; Z79.899 Other long term (current) drug therapy; Z79.01 Long term (current) use of anticoagulants
CPT/HCPCS: 99283; C1751

== ENCOUNTER 2022-01-17 09:58 | Inpatient (IN) | payer OTHER ==
[~2022-01-17] VITALS: Ht 198.1 cm; Wt 108.0 kg
[~2022-01-17 09:58] MED LIST changes: +BICARSIM FORTE125 MG PO; -PANT40 PO
[2022-01-17 10:19] LABS: BASOPHILS ABSOLUTE AUTO 0.08 K/mm3 (0.00-0.23); BASOPHILS PERCENT AUTO 1 % (0-2); EOSINOPHILS ABSOLUTE AUTO 0.14 K/mm3 (0.00-0.68); EOSINOPHILS PERCENT AUTO 1 % (0-6); Hematocrit 53.9 % (37.0-53.0); Hemoglobin 16.2 g/dL (13.5-17.5); IMMATURE GRAN ABSOLUTE AUTO 0.04 K/mm3 (0.00-0.10); IMMATURE GRAN PERCENT AUTO 0 % (0-1); LYMPHOCYTES ABSOLUTE AUTO 1.74 K/mm3 (0.84-5.20); LYMPHOCYTES PERCENT AUTO 12 % (21-46); MONOCYTES ABSOLUTE AUTO 0.93 K/mm3 (0.16-1.47); MONOCYTES PERCENT AUTO 7 % (4-13); Mean Corpuscular HGB 24.1 pg (26.0-34.0); Mean Corpuscular HGB Conc 30.1 g/dL (31.5-36.5); Mean Corpuscular Volume 80 fL (80-100); Mean Platelet Volume 8.9 fL (9.1-12.4); NEUTROPHILS ABSOLUTE AUTO 11.35 K/mm3 (1.96-9.15); NEUTROPHILS PERCENT AUTO 79 % (41-73); Platelet Count 705 K/mm3 (150-400); RDW Coefficient Variation 17.6 % (11.7-14.2); RDW Standard Deviation 46.6 fL (35.1-46.3); Red Blood Cell Count 6.72 M/mm3 (4.30-5.90); White Blood Cell Count 14.28 K/mm3 (4.00-11.30)
[2022-01-17 10:40] LABS: Albumin, Blood 3.8 g/dL (3.4-5.0); Albumin/Globulin Ratio 0.7 (0.8-1.8); Bilirubin, Total 0.8 mg/dL (0.1-1.0); Calcium, Blood 10.1 mg/dL (8.5-10.1); Creatinine, Blood 1.05 mg/dL (0.60-1.20); Globulin, Blood 5.8 g/dL (2.2-4.0); Potassium, Blood 4.6 mmol/L (3.5-5.5); Total Protein, Blood 9.6 g/dL (6.4-8.2)
[2022-01-17 12:28] LABS: Influenza A, PCR NEGATIVE (NEGATIVE); Influenza B, PCR NEGATIVE (NEGATIVE); Resp Syncytial Virus, PCR NEGATIVE (NEGATIVE); SARS-Cov-2 (COVID-19) PCR, MMC NEGATIVE (NEGATIVE)
[2022-01-17 14:08] LABS: Source, Urine Foley catheter
[2022-01-17 14:22] LABS: Appearance, Urine Hazy (Clear); Bilirubin, Urine Neg (Neg); Blood, Urine 4+ (Neg); Color, Urine Yellow (P-Yellow); Glucose Qualitative, Urine Neg (Neg); Ketones, Urine Neg (Neg); Leukocyte Esterase, Urine 2+ (Neg); Nitrite, Urine Neg (Neg); Protein, Urine 2+ (Neg); Specific Gravity, Urine 1.015 (1.003-1.022); Urobilinogen, Urine NORM (Normal)
[2022-01-17 14:31] LABS: Bacteria Few /hpf; Mucus Light (0-Heavy); Renal Epithelial Rare /hpf (0-Rare); Squamous Epithelial Cells Rare /hpf (Few)
--- NOTE | 2022-01-17 17:00 | NUR ---
INITIAL ASSESSMENT: Patient arrived to PCU 04 via gurney and was slid over to the bed. He was given a bed bath on arrival. He is alert and oriented, soft spoken. He is paraplegic due to MS. He has minimal function of his right hand/arm. His left hand is contracted, this was elevated on a pillow. 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 HRR, ST at 112. LS with some fine crackles in the right base, biox above 95% on RA. Pt has coarse NPC. 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 Chronic acevedo in place, was changed in the ER is draining cloudy yellow urine. PPP. Pt has foot drop. He has a rash to his shins bilaterally, he states this is chronic. Pt has stage 3 coccyx pressure wound, this was cleansed and dressed with calcium algeinate and covered with a mepilex. Mepilex placed to bilat heels for prevention. VSS. Patient repositioned to his left side. He denies other needs at this time. Call light in reach.
[2022-01-17] MEDS ORDERED: FAMO20 PO (18:16)
--- NOTE | 2022-01-17 20:52 | NUR ---
Assumed care at approximately 1900. Report received from girma RN. Pt resting in bed att, daughters at bedside. Pt alert and oriented, on room air. No acute needs noted. Continue to monitor.
--- NOTE | 2022-01-17 20:54 | NUR ---
Assumed care at approximately 1900. Pt sleeping at time of report. VS stable, no acute needs noted. Continue to monitor.
[2022-01-18 04:26] LABS: BASOPHILS ABSOLUTE AUTO 0.09 K/mm3 (0.00-0.23); BASOPHILS PERCENT AUTO 1 % (0-2); EOSINOPHILS PERCENT AUTO 2 % (0-6); Hematocrit 46.4 % (37.0-53.0); Hemoglobin 14.2 g/dL (13.5-17.5); IMMATURE GRAN ABSOLUTE AUTO 0.07 K/mm3 (0.00-0.10); IMMATURE GRAN PERCENT AUTO 0 % (0-1); LYMPHOCYTES ABSOLUTE AUTO 1.31 K/mm3 (0.84-5.20); LYMPHOCYTES PERCENT AUTO 8 % (21-46); MONOCYTES ABSOLUTE AUTO 1.36 K/mm3 (0.16-1.47); MONOCYTES PERCENT AUTO 8 % (4-13); Mean Corpuscular HGB 24.5 pg (26.0-34.0); Mean Corpuscular HGB Conc 30.6 g/dL (31.5-36.5); Mean Corpuscular Volume 80 fL (80-100); Mean Platelet Volume 9.3 fL (9.1-12.4); NEUTROPHILS ABSOLUTE AUTO 13.63 K/mm3 (1.96-9.15); NEUTROPHILS PERCENT AUTO 81 % (41-73); Platelet Count 543 K/mm3 (150-400); RDW Coefficient Variation 16.3 % (11.7-14.2); RDW Standard Deviation 47.6 fL (35.1-46.3); White Blood Cell Count 16.76 K/mm3 (4.00-11.30)
[2022-01-18 04:51] LABS: Albumin, Blood 3.1 g/dL (3.4-5.0); Albumin/Globulin Ratio 0.7 (0.8-1.8); Bilirubin, Total 0.6 mg/dL (0.1-1.0); Bun/Creatinine Ratio 22.4 (12.0-20.0); Calcium, Blood 8.8 mg/dL (8.5-10.1); Creatinine, Blood 0.89 mg/dL (0.60-1.20); Globulin, Blood 4.6 g/dL (2.2-4.0); Potassium, Blood 4.2 mmol/L (3.5-5.5); Total Protein, Blood 7.7 g/dL (6.4-8.2)
--- NOTE | 2022-01-18 05:59 | NUR ---
Shift summary. Pt rested in bed throughout shift. Alert and oriented to self/surroundings. Pt confused at times about people/events. Pt up to feet several times to use urinal, noted to be incontinent of urine and changed. NS infusing at 100 ml/hr. No acute events overnight. See assessment for further details. Will continue to monitor and report off to dayshift RN.
--- NOTE | 2022-01-18 11:58 | NUR ---
Spiritual care visit conducted. Pt is lying in bed and alert. I ask pt how he is holding up and he shakes his head "no." I ask a few more questions which he does not respond to then I ask if I could pray for him and he shakes his head affirmingly. I gladly provide prayer and pt says,"okay," and shakes his head "yes" again. I ask If I can do anything else for him and he shakes his head "no." Pt shows no signs of change. I will continue to remain available to pt and family.
--- NOTE | 2022-01-18 17:42 | NUR ---
SHIFT SUMMARY VSS T/O THE DAY, PT ALERT, HE IS ABLE TO ANSWER MANY OF HIS ASSESSMENT QUESTIONS THIS AM, AND CONTINUES TO ENGAGE WELL WITH STAFF T/O THE DAY. PT DNEIES CP OR SOB. HE REQUIRE TOTAL CARE, Q2 HOUR TURNS. PER NOC SHIFT LAST NIGHT PT WITH CAPSULES IN OSTOMY APPLIANCE, THERE ARE NO CAPSULES NOTED IN HIS OSTOMY DURING THIS SHIFT. CLEARY DRAINING WELL TO GRAVITY. PT ABLE TO USE CALL LIGHT AND ABLE TO MAKE NEEDS KNOWN.
[2022-01-19 05:52] LABS: BASOPHILS ABSOLUTE AUTO 0.06 K/mm3 (0.00-0.23); BASOPHILS PERCENT AUTO 1 % (0-2); EOSINOPHILS ABSOLUTE AUTO 0.15 K/mm3 (0.00-0.68); EOSINOPHILS PERCENT AUTO 1 % (0-6); Hematocrit 44.3 % (37.0-53.0); Hemoglobin 13.1 g/dL (13.5-17.5); IMMATURE GRAN ABSOLUTE AUTO 0.04 K/mm3 (0.00-0.10); IMMATURE GRAN PERCENT AUTO 0 % (0-1); LYMPHOCYTES ABSOLUTE AUTO 0.98 K/mm3 (0.84-5.20); LYMPHOCYTES PERCENT AUTO 8 % (21-46); MONOCYTES ABSOLUTE AUTO 0.93 K/mm3 (0.16-1.47); MONOCYTES PERCENT AUTO 7 % (4-13); Mean Corpuscular HGB 23.9 pg (26.0-34.0); Mean Corpuscular HGB Conc 29.6 g/dL (31.5-36.5); Mean Corpuscular Volume 81 fL (80-100); Mean Platelet Volume 9.1 fL (9.1-12.4); NEUTROPHILS ABSOLUTE AUTO 10.86 K/mm3 (1.96-9.15); NEUTROPHILS PERCENT AUTO 83 % (41-73); Platelet Count 471 K/mm3 (150-400); RDW Coefficient Variation 16.2 % (11.7-14.2); RDW Standard Deviation 47.9 fL (35.1-46.3); Red Blood Cell Count 5.48 M/mm3 (4.30-5.90); White Blood Cell Count 13.02 K/mm3 (4.00-11.30)
--- NOTE | 2022-01-19 05:57 | NUR ---
SHIFT SUMMARY PT ALERT AND ORIENTED X4, SOFT SPOKEN. AFEBRILE. HR 90-100'S SR/ST. BP STABLE. ON RA SATS OVER 93%. QUAD PT ON BEDREST, Q2 TURNS. NS RUNNING @125ML/HR IN DEVI PG. HEADACHE RELIEVED WITH TYLENOL. NAUSEA THIS AM MEDICATED PER EMAR. SAYS HE VOMITS BUT CANNOT CLEAR SECRETIONS. SUCTION WHEN NEEDED. OSTOMY BAG DRAINING SOFT BROWN URINE. CLEARY IN PLACE DRAINING YELLOW URINE TO GRAVITY. IN BED WITH CALL ALARM AT SIDE, WILL CONTINUE TO MONITOR UNTIL REPORT GIVEN TO ONCOMING RN
[2022-01-19 06:16] LABS: Albumin, Blood 2.8 g/dL (3.4-5.0); Albumin/Globulin Ratio 0.7 (0.8-1.8); Bilirubin, Total 0.5 mg/dL (0.1-1.0); Bun/Creatinine Ratio 20.9 (12.0-20.0); Calcium, Blood 8.6 mg/dL (8.5-10.1); Creatinine, Blood 0.86 mg/dL (0.60-1.20); Globulin, Blood 4.3 g/dL (2.2-4.0); Potassium, Blood 3.7 mmol/L (3.5-5.5); Total Protein, Blood 7.1 g/dL (6.4-8.2)
--- NOTE | 2022-01-19 12:00 | NUR ---
REPORT CALLED TO GUS CLANCY ON MEDICAL FLOOR. NS AND AMPLICILLIN REMAIN INFUSING AT THE TIME OF TRANSFER.
--- NOTE | 2022-01-19 18:35 | NUR ---
SHIFT SUMMARY: PT A/O X 3, BEDREST AT THIS TIME. PT IS A LIFT PT. PLEASANT AND COOPERATIVE WITH CARE. PT TX FROM PCU TODAY WITH N/V ON ARRIVAL. GAVE REGLAN WHICH WAS INEFFECTIVE SO ZOFRAN ALSO GIVEN WHICH WAS EFFECTIVE. 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 PT DID NOT REPORT ANY PAIN. PER TELE PT NSR. CATHETER DRAINING YELLOW CLOUDY URINE. ILEOSTOMY PATENT.
[2022-01-20 05:06] LABS: BASOPHILS ABSOLUTE AUTO 0.07 K/mm3 (0.00-0.23); BASOPHILS PERCENT AUTO 1 % (0-2); EOSINOPHILS ABSOLUTE AUTO 0.35 K/mm3 (0.00-0.68); EOSINOPHILS PERCENT AUTO 3 % (0-6); Hematocrit 39.7 % (37.0-53.0); Hemoglobin 11.8 g/dL (13.5-17.5); IMMATURE GRAN ABSOLUTE AUTO 0.03 K/mm3 (0.00-0.10); IMMATURE GRAN PERCENT AUTO 0 % (0-1); LYMPHOCYTES PERCENT AUTO 12 % (21-46); MONOCYTES ABSOLUTE AUTO 1.11 K/mm3 (0.16-1.47); MONOCYTES PERCENT AUTO 11 % (4-13); Mean Corpuscular HGB 24.8 pg (26.0-34.0); Mean Corpuscular HGB Conc 29.7 g/dL (31.5-36.5); Mean Corpuscular Volume 84 fL (80-100); Mean Platelet Volume 9.3 fL (9.1-12.4); NEUTROPHILS ABSOLUTE AUTO 7.73 K/mm3 (1.96-9.15); NEUTROPHILS PERCENT AUTO 73 % (41-73); Platelet Count 360 K/mm3 (150-400); RDW Coefficient Variation 16.1 % (11.7-14.2); RDW Standard Deviation 49.8 fL (35.1-46.3); Red Blood Cell Count 4.75 M/mm3 (4.30-5.90); White Blood Cell Count 10.59 K/mm3 (4.00-11.30)
[2022-01-20 05:31] LABS: Albumin, Blood 2.5 g/dL (3.4-5.0); Albumin/Globulin Ratio 0.7 (0.8-1.8); Bilirubin, Total 0.5 mg/dL (0.1-1.0); Bun/Creatinine Ratio 25.7 (12.0-20.0); Calcium, Blood 8.4 mg/dL (8.5-10.1); Creatinine, Blood 0.86 mg/dL (0.60-1.20); Globulin, Blood 3.8 g/dL (2.2-4.0); Potassium, Blood 4.3 mmol/L (3.5-5.5); Total Protein, Blood 6.3 g/dL (6.4-8.2)
--- NOTE | 2022-01-20 06:33 | NUR ---
SHIFT SUMMARY A&OX4. VSS. BEDREST Q2H TURNS. PT CALLS TO BE REPOSITIONED. PAIN MANAGED WITH PRN TYLENOL AND SCHEDULED GABAPENTIN. ILEOSTOMY BAG PATENT, DRAINING STOOL. CLEARY CATH DRAINING CLEAR, YELLOW URINE. STRAWBERRY RASH TO BLE. CHRONIC PU WOUND TO COCCYX. BED ALARM ON.
[2022-01-20 13:48] LABS: Influenza A, PCR NEGATIVE (NEGATIVE); Influenza B, PCR NEGATIVE (NEGATIVE); Resp Syncytial Virus, PCR NEGATIVE (NEGATIVE); SARS-Cov-2 (COVID-19) PCR, MMC NEGATIVE (NEGATIVE)
--- NOTE | 2022-01-20 17:14 | NUR ---
DISCHARGE SUMMARY: PT A/O X 4, LIFT PT TO [facility]. PLEASANT AND COOPERATIVE. PT DISCHARGED BACK TO [facility] VIA [facility] TRANSPORT. WOUND CARE AND PHOTO DOCUMENTATION COMPLETED PRIOR TO LEAVING. OSTOMY APPLIANCE ALSO CHANGED. REPORT GIVEN TO SELVIN AT [facility]. BELONGINGS SENT WITH PT.
== END 2022-01-20 16:01 | DRG 698 ==
LOC: ER 09:58 → MEDS 15:30 → PCU 15:30 → MEDS 01-19 12:45
PROVIDERS: Emergency Medicine; Family Medicine; Nurse Practitioner Acute Care; ADMIT Internal Medicine
DX: T83.511A Infection and inflammatory reaction due to indwelling urethral catheter, initial encounter (principal); A41.9 Sepsis, unspecified organism; J18.9 Pneumonia, unspecified organism; J69.0 Pneumonitis due to inhalation of food and vomit; R53.2 Functional quadriplegia; R65.20 Severe sepsis without septic shock; E87.0 Hyperosmolality and hypernatremia; I48.20 Chronic atrial fibrillation, unspecified; N39.0 Urinary tract infection, site not specified; F03.90 Unspecified dementia, unspecified severity, without behavioral disturbance, psychotic disturbance, mood disturbance, and anxiety; Z66 Do not resuscitate; F41.8 Other specified anxiety disorders; G35 Multiple sclerosis; R09.02 Hypoxemia; N31.9 Neuromuscular dysfunction of bladder, unspecified; D63.8 Anemia in other chronic diseases classified elsewhere; D50.9 Iron deficiency anemia, unspecified; K21.9 Gastro-esophageal reflux disease without esophagitis; I95.89 Other hypotension; Z20.822 Contact with and (suspected) exposure to COVID-19; Z98.890 Other specified postprocedural states; Z86.711 Personal history of pulmonary embolism; Z93.2 Ileostomy status; Z86.718 Personal history of other venous thrombosis and embolism; Z98.42 Cataract extraction status, left eye; Z98.41 Cataract extraction status, right eye; Z87.891 Personal history of nicotine dependence; Z95.828 Presence of other vascular implants and grafts; Z79.01 Long term (current) use of anticoagulants; Z79.899 Other long term (current) drug therapy; Z88.2 Allergy status to sulfonamides; Z88.8 Allergy status to other drugs, medicaments and biological substances; Z88.5 Allergy status to narcotic agent; Y84.6 Urinary catheterization as the cause of abnormal reaction of the patient, or of later complication, without mention of misadventure at the time of the procedure
CPT/HCPCS: 0241U; 36415; 71045; 80053; 81001; 83605; 83735; 83880; 84145; 85025; 87040; 87086; 93005; 93010; 96361; 96365; 96375; 99285-25; A9270; J0290; J0696; J2185; J2405; J2765; J3370; J7030; J7050

== ENCOUNTER 2022-01-24 23:14 | Inpatient (IN) | payer OTHER ==
[~2022-01-24] VITALS: Ht 198.1 cm; Wt 108.9 kg
[2022-01-25 01:15] LABS: BASOPHILS ABSOLUTE AUTO 0.08 K/mm3 (0.00-0.23); BASOPHILS PERCENT AUTO 0 % (0-2); EOSINOPHILS ABSOLUTE AUTO 0.04 K/mm3 (0.00-0.68); EOSINOPHILS PERCENT AUTO 0 % (0-6); Hemoglobin 16.8 g/dL (13.5-17.5); IMMATURE GRAN ABSOLUTE AUTO 0.12 K/mm3 (0.00-0.10); IMMATURE GRAN PERCENT AUTO 1 % (0-1); LYMPHOCYTES ABSOLUTE AUTO 1.44 K/mm3 (0.84-5.20); LYMPHOCYTES PERCENT AUTO 6 % (21-46); MONOCYTES ABSOLUTE AUTO 1.63 K/mm3 (0.16-1.47); MONOCYTES PERCENT AUTO 7 % (4-13); Mean Corpuscular HGB 24.2 pg (26.0-34.0); Mean Corpuscular HGB Conc 30.3 g/dL (31.5-36.5); Mean Corpuscular Volume 80 fL (80-100); Mean Platelet Volume 9.6 fL (9.1-12.4); NEUTROPHILS PERCENT AUTO 86 % (41-73); Platelet Count 640 K/mm3 (150-400); RDW Coefficient Variation 17.7 % (11.7-14.2); RDW Standard Deviation 45.1 fL (35.1-46.3); Red Blood Cell Count 6.95 M/mm3 (4.30-5.90); White Blood Cell Count 23.91 K/mm3 (4.00-11.30)
[2022-01-25 01:17] LABS: Source, Urine Foley catheter
[2022-01-25 01:29] LABS: Appearance, Urine Cloudy (Clear); Bilirubin, Urine Neg (Neg); Blood, Urine 4+ (Neg); Color, Urine Yellow (P-Yellow); Glucose Qualitative, Urine Neg (Neg); Ketones, Urine 2+ (Neg); Leukocyte Esterase, Urine 3+ (Neg); Nitrite, Urine Neg (Neg); Protein, Urine 3+ (Neg); Specific Gravity, Urine 1.025 (1.003-1.022); Urobilinogen, Urine NORM (Normal)
[2022-01-25 01:33] LABS: Albumin, Blood 3.6 g/dL (3.4-5.0); Albumin/Globulin Ratio 0.6 (0.8-1.8); Bilirubin, Total 0.7 mg/dL (0.1-1.0); Bun/Creatinine Ratio 15.5 (12.0-20.0); Calcium, Blood 9.9 mg/dL (8.5-10.1); Creatinine, Blood 1.29 mg/dL (0.60-1.20); Globulin, Blood 6.3 g/dL (2.2-4.0); Potassium, Blood 4.4 mmol/L (3.5-5.5); Total Protein, Blood 9.9 g/dL (6.4-8.2)
[2022-01-25 01:43] LABS: Hematocrit 55.5 % (37.0-53.0)
[2022-01-25 02:03] LABS: White Blood Cells, Urine TNTC /hpf (0-5)
[2022-01-25 02:04] LABS: Squamous Epithelial Cells Rare /hpf (Few)
[2022-01-25 02:05] LABS: Bacteria Many /hpf; Yeast/Fungi Urine Many /hpf
[2022-01-25 03:12] LABS: Influenza A, PCR NEGATIVE (NEGATIVE); Influenza B, PCR NEGATIVE (NEGATIVE); Resp Syncytial Virus, PCR NEGATIVE (NEGATIVE); SARS-Cov-2 (COVID-19) PCR, MMC NEGATIVE (NEGATIVE)
[2022-01-25 05:43] LABS: BASOPHILS ABSOLUTE AUTO 0.06 K/mm3 (0.00-0.23); BASOPHILS PERCENT AUTO 0 % (0-2); EOSINOPHILS ABSOLUTE AUTO 0.07 K/mm3 (0.00-0.68); EOSINOPHILS PERCENT AUTO 0 % (0-6); Hematocrit 49.9 % (37.0-53.0); Hemoglobin 15.5 g/dL (13.5-17.5); IMMATURE GRAN ABSOLUTE AUTO 0.07 K/mm3 (0.00-0.10); IMMATURE GRAN PERCENT AUTO 0 % (0-1); LYMPHOCYTES ABSOLUTE AUTO 1.64 K/mm3 (0.84-5.20); LYMPHOCYTES PERCENT AUTO 9 % (21-46); MONOCYTES ABSOLUTE AUTO 2.02 K/mm3 (0.16-1.47); MONOCYTES PERCENT AUTO 11 % (4-13); Mean Corpuscular HGB 24.5 pg (26.0-34.0); Mean Corpuscular HGB Conc 31.1 g/dL (31.5-36.5); Mean Corpuscular Volume 79 fL (80-100); Mean Platelet Volume 9.4 fL (9.1-12.4); NEUTROPHILS ABSOLUTE AUTO 14.75 K/mm3 (1.96-9.15); NEUTROPHILS PERCENT AUTO 79 % (41-73); Platelet Count 508 K/mm3 (150-400); RDW Coefficient Variation 16.9 % (11.7-14.2); Red Blood Cell Count 6.32 M/mm3 (4.30-5.90); White Blood Cell Count 18.61 K/mm3 (4.00-11.30)
[2022-01-25 06:05] LABS: Albumin, Blood 3.3 g/dL (3.4-5.0); Albumin/Globulin Ratio 0.6 (0.8-1.8); Bilirubin, Total 0.6 mg/dL (0.1-1.0); Bun/Creatinine Ratio 18.3 (12.0-20.0); Calcium, Blood 9.3 mg/dL (8.5-10.1); Creatinine, Blood 1.31 mg/dL (0.60-1.20); Globulin, Blood 5.1 g/dL (2.2-4.0); Potassium, Blood 4.6 mmol/L (3.5-5.5); Total Protein, Blood 8.4 g/dL (6.4-8.2)
[2022-01-25 06:40] LABS: Source, Urine Foley catheter
[2022-01-25 07:18] LABS: Appearance, Urine Cloudy (Clear); Bilirubin, Urine Neg (Neg); Blood, Urine 5+ (Neg); Color, Urine Yellow (P-Yellow); Glucose Qualitative, Urine Neg (Neg); Ketones, Urine Neg (Neg); Leukocyte Esterase, Urine 3+ (Neg); Nitrite, Urine Neg (Neg); Protein, Urine 2+ (Neg); Specific Gravity, Urine 1.015 (1.003-1.022); Urobilinogen, Urine NORM (Normal)
[2022-01-25 07:21] LABS: Bacteria Mod /hpf; Squamous Epithelial Cells Rare /hpf (Few); White Blood Cells, Urine TNTC /hpf (0-5)
[2022-01-26 08:47] LABS: BASOPHILS ABSOLUTE AUTO 0.09 K/mm3 (0.00-0.23); BASOPHILS PERCENT AUTO 1 % (0-2); EOSINOPHILS ABSOLUTE AUTO 0.46 K/mm3 (0.00-0.68); EOSINOPHILS PERCENT AUTO 4 % (0-6); Hematocrit 50.5 % (37.0-53.0); Hemoglobin 15.2 g/dL (13.5-17.5); IMMATURE GRAN ABSOLUTE AUTO 0.03 K/mm3 (0.00-0.10); IMMATURE GRAN PERCENT AUTO 0 % (0-1); LYMPHOCYTES ABSOLUTE AUTO 2.17 K/mm3 (0.84-5.20); LYMPHOCYTES PERCENT AUTO 19 % (21-46); MONOCYTES ABSOLUTE AUTO 1.41 K/mm3 (0.16-1.47); MONOCYTES PERCENT AUTO 12 % (4-13); Mean Corpuscular HGB 24.6 pg (26.0-34.0); Mean Corpuscular HGB Conc 30.1 g/dL (31.5-36.5); Mean Corpuscular Volume 82 fL (80-100); Mean Platelet Volume 9.5 fL (9.1-12.4); NEUTROPHILS ABSOLUTE AUTO 7.37 K/mm3 (1.96-9.15); NEUTROPHILS PERCENT AUTO 64 % (41-73); Platelet Count 418 K/mm3 (150-400); RDW Coefficient Variation 16.7 % (11.7-14.2); RDW Standard Deviation 48.2 fL (35.1-46.3); Red Blood Cell Count 6.17 M/mm3 (4.30-5.90); White Blood Cell Count 11.53 K/mm3 (4.00-11.30)
[2022-01-26 08:58] LABS: Bun/Creatinine Ratio 30.9 (12.0-20.0); Calcium, Blood 9.3 mg/dL (8.5-10.1); Creatinine, Blood 0.94 mg/dL (0.60-1.20); Potassium, Blood 4.7 mmol/L (3.5-5.5)
[2022-01-26] MEDS ORDERED: AUGMENTIN 500-1 EACH PO (12:49)
[2022-01-26] MEDS ORDERED: Diflucan100 MG PO (12:50)
== END 2022-01-26 12:20 | DRG 698 ==
LOC: ER 23:14 → MEDS 01-25 03:37
PROVIDERS: Emergency Medicine; Family Medicine; Internal Medicine; ADMIT Internal Medicine
DX: T83.511A Infection and inflammatory reaction due to indwelling urethral catheter, initial encounter (principal); A41.9 Sepsis, unspecified organism; N17.9 Acute kidney failure, unspecified; I48.20 Chronic atrial fibrillation, unspecified; N39.0 Urinary tract infection, site not specified; Z66 Do not resuscitate; G35 Multiple sclerosis; N31.9 Neuromuscular dysfunction of bladder, unspecified; F41.8 Other specified anxiety disorders; F03.90 Unspecified dementia, unspecified severity, without behavioral disturbance, psychotic disturbance, mood disturbance, and anxiety; I95.89 Other hypotension; D50.8 Other iron deficiency anemias; D63.8 Anemia in other chronic diseases classified elsewhere; K21.9 Gastro-esophageal reflux disease without esophagitis; Y84.6 Urinary catheterization as the cause of abnormal reaction of the patient, or of later complication, without mention of misadventure at the time of the procedure; Z96.89 Presence of other specified functional implants; Z20.822 Contact with and (suspected) exposure to COVID-19; B96.89 Other specified bacterial agents as the cause of diseases classified elsewhere; Z88.8 Allergy status to other drugs, medicaments and biological substances; Z88.2 Allergy status to sulfonamides; Z88.5 Allergy status to narcotic agent; Z88.1 Allergy status to other antibiotic agents; Z87.442 Personal history of urinary calculi; Z86.718 Personal history of other venous thrombosis and embolism; Z93.2 Ileostomy status; Z79.01 Long term (current) use of anticoagulants; Z98.61 Coronary angioplasty status; Z87.891 Personal history of nicotine dependence; Z98.890 Other specified postprocedural states; Z86.711 Personal history of pulmonary embolism; Z98.42 Cataract extraction status, left eye; Z98.41 Cataract extraction status, right eye; Z79.899 Other long term (current) drug therapy
CPT/HCPCS: 0241U; 36415; 71045; 74177; 80048; 80053; 81001; 83605; 83690; 84484; 85025; 87077; 87086; 87186; 92610; 93005; 93010; 94640; 94664; 94760; A9270; J0290; J0696; J1450; J2185; J2550; J7030; J7050; Q9967

== ENCOUNTER 2022-03-14 08:07 | Inpatient (IN) | payer MEDICARE, OTHER ==
[~2022-03-14] VITALS: Ht 190.5 cm; Wt 109.6 kg
[~2022-03-14 08:07] MED LIST changes: +AUGMENTIN 500-1 EACH PO; +Diflucan100 MG PO
[2022-03-14 09:41] LABS: BASOPHILS ABSOLUTE AUTO 0.04 K/mm3 (0.00-0.23); BASOPHILS PERCENT AUTO 0 % (0-2); EOSINOPHILS ABSOLUTE AUTO 0.02 K/mm3 (0.00-0.68); EOSINOPHILS PERCENT AUTO 0 % (0-6); Hematocrit 47.7 % (37.0-53.0); Hemoglobin 14.7 g/dL (13.5-17.5); IMMATURE GRAN ABSOLUTE AUTO 0.08 K/mm3 (0.00-0.10); IMMATURE GRAN PERCENT AUTO 0 % (0-1); LYMPHOCYTES ABSOLUTE AUTO 0.42 K/mm3 (0.84-5.20); LYMPHOCYTES PERCENT AUTO 2 % (21-46); MONOCYTES ABSOLUTE AUTO 1.37 K/mm3 (0.16-1.47); MONOCYTES PERCENT AUTO 7 % (4-13); Mean Corpuscular HGB 25.3 pg (26.0-34.0); Mean Corpuscular HGB Conc 30.8 g/dL (31.5-36.5); Mean Corpuscular Volume 82 fL (80-100); Mean Platelet Volume 9.2 fL (9.1-12.4); NEUTROPHILS ABSOLUTE AUTO 17.11 K/mm3 (1.96-9.15); NEUTROPHILS PERCENT AUTO 90 % (41-73); Platelet Count 274 K/mm3 (150-400); RDW Coefficient Variation 17.1 % (11.7-14.2); RDW Standard Deviation 50.3 fL (35.1-46.3); White Blood Cell Count 19.04 K/mm3 (4.00-11.30)
[2022-03-14 09:47] LABS: Source, Urine Straight Cath
[2022-03-14 10:01] LABS: Albumin, Blood 3.1 g/dL (3.4-5.0); Albumin/Globulin Ratio 0.6 (0.8-1.8); Bilirubin, Total 0.5 mg/dL (0.1-1.0); Bun/Creatinine Ratio 19.3 (12.0-20.0); Calcium, Blood 9.1 mg/dL (8.5-10.1); Creatinine, Blood 0.99 mg/dL (0.60-1.20); Globulin, Blood 4.9 g/dL (2.2-4.0); Magnesium, Blood 1.7 mg/dL (1.6-2.4); Potassium, Blood 3.9 mmol/L (3.5-5.5)
[2022-03-14 10:03] LABS: Appearance, Urine Hazy (Clear); Bilirubin, Urine Neg (Neg); Blood, Urine 5+ (Neg); Color, Urine Yellow (P-Yellow); Glucose Qualitative, Urine Neg (Neg); Ketones, Urine Neg (Neg); Leukocyte Esterase, Urine 3+ (Neg); Nitrite, Urine Neg (Neg); Protein, Urine 3+ (Neg); Urobilinogen, Urine NORM (Normal)
[2022-03-14 10:14] LABS: White Blood Cells, Urine TNTC /hpf (0-5)
[2022-03-14 10:15] LABS: Bacteria Mod /hpf; Squamous Epithelial Cells Not Seen /hpf (Few)
[2022-03-14 10:33] LABS: Influenza A, PCR NEGATIVE (NEGATIVE); Influenza B, PCR NEGATIVE (NEGATIVE); Resp Syncytial Virus, PCR NEGATIVE (NEGATIVE); SARS-Cov-2 (COVID-19) PCR, MMC NEGATIVE (NEGATIVE)
[2022-03-14] MEDS ORDERED: Cyclobenzaprine5 MG PO (13:18)
[2022-03-14] MEDS ORDERED: POTCIT10 PO (13:20)
[2022-03-14] MEDS ORDERED: ELIQUIS5 M2 PO (13:21)
[2022-03-14] MEDS ORDERED: Florastor250 MG PO (13:21)
[2022-03-14] MEDS ORDERED: MONUROL3 GM PO (13:23)
[2022-03-14 14:24] LABS: Adenovirus F 40/41 Not Detected (NOT DETECT); Astrovirus Not Detected (NOT DETECT); Campylobacter Sp Not Detected (NOT DETECT); Cryptosporidium Not Detected (NOT DETECT); Cyclospora Cayetanensis Not Detected (NOT DETECT); E. Coli O157 Not Detected (NOT DETECT); Entamoeba Histolytica Not Detected (NOT DETECT); Enteroaggregative E. coli-EAEC Not Detected (NOT DETECT); Enteropathogenic E. coli-EPEC Not Detected (NOT DETECT); Enterotoxigenic E. coli-ETEC Not Detected (NOT DETECT); Giardia Lamblia Not Detected (NOT DETECT); Plesiomonas Shigelloides Not Detected (NOT DETECT); Salmonella Sp Not Detected (NOT DETECT); Shiga Toxin-prod E. coli-STEC Not Detected (NOT DETECT); Shigella/Enteroin E. coli-EIEC Not Detected (NOT DETECT); Vibrio Cholerae Not Detected (NOT DETECT); Vibrio Sp Not Detected (NOT DETECT); Yersinia Enterocolitica Not Detected (NOT DETECT)
[2022-03-14 14:25] LABS: Norovirus GI/GII Not Detected (NOT DETECT); Rotavirus A Not Detected (NOT DETECT); Sapovirus Not Detected (NOT DETECT)
--- NOTE | 2022-03-14 17:52 | NUR ---
SHIFT SUMMARY PT HAS BEEN RESTING QUIETLY IN ROOM AND SLEEPING SINCE ADMISSION. PT HAD MULTIPLE WITNESSED APNEIC EPISODES WHILE ASLEEP WITH DESATS LOW 78% SPO2, THEY WERE PLACED ON CPAP BY RT. BLOOD PRESSURE HAS REMAINED STABLE WITH SBP >100. PRESSURE INJURY TO COCCYX WAS EXAMINED ON ADMISSION AND DRESSING THAT WAS IN PLACE WAS REPLACED. PT C/O DISCOMFORT AND PRESSURE TO THE INJURED REGION WHICH WAS ADDRESSED WITH REPOSIONING.
[2022-03-15 06:17] LABS: BASOPHILS ABSOLUTE AUTO 0.07 K/mm3 (0.00-0.23); BASOPHILS PERCENT AUTO 0 % (0-2); EOSINOPHILS ABSOLUTE AUTO 0.24 K/mm3 (0.00-0.68); EOSINOPHILS PERCENT AUTO 2 % (0-6); Hemoglobin 11.9 g/dL (13.5-17.5); IMMATURE GRAN ABSOLUTE AUTO 0.07 K/mm3 (0.00-0.10); IMMATURE GRAN PERCENT AUTO 0 % (0-1); LYMPHOCYTES ABSOLUTE AUTO 0.59 K/mm3 (0.84-5.20); LYMPHOCYTES PERCENT AUTO 4 % (21-46); MONOCYTES ABSOLUTE AUTO 1.55 K/mm3 (0.16-1.47); MONOCYTES PERCENT AUTO 10 % (4-13); Mean Corpuscular HGB 25.3 pg (26.0-34.0); Mean Corpuscular HGB Conc 30.5 g/dL (31.5-36.5); Mean Corpuscular Volume 83 fL (80-100); Mean Platelet Volume 9.5 fL (9.1-12.4); NEUTROPHILS ABSOLUTE AUTO 13.11 K/mm3 (1.96-9.15); NEUTROPHILS PERCENT AUTO 84 % (41-73); Platelet Count 239 K/mm3 (150-400); RDW Coefficient Variation 17.2 % (11.7-14.2); RDW Standard Deviation 51.1 fL (35.1-46.3); Red Blood Cell Count 4.71 M/mm3 (4.30-5.90); White Blood Cell Count 15.63 K/mm3 (4.00-11.30)
--- NOTE | 2022-03-15 06:24 | NUR ---
END OF SHIFT: NEURO: PATIENT IS PRETTY CLOSE TO BASELINE FROM PREVIOUS ADMISSIONS WITH PATIENT. PLEASANT COOPERATIVE WITH CARE. CARDIAC: ST THIS AM IS CURRENLTY SR. BLOOD PRESSURE SLIGHTLY SOFT, WILL CONTINUE TO MONITOR UNTIL SHIFT CHANGE. PULM: BREATHING SEEMS TO BE BETTER THAN PREVIOUS ADMISSION, I BELIEVE PATIENT HAS CAME IN EARLIER IN HIS TYPICAL UROSEPSIS THAN PREVIOUSLY, WHICH HAS HELPED HIM BE IN A BETTER OVERALL STATE. GI/: ILEOSTOMY DRAINING WELL. 700mL ON THIS SHIFT. CLEARY DRAINING TO GRAVITY NO CONCERNS FROM THIS RN. WILL CONTINUE TO MONITOR UNTIL SHIFT CHANGE.
[2022-03-15 06:27] LABS: Albumin, Blood 2.4 g/dL (3.4-5.0); Albumin/Globulin Ratio 0.6 (0.8-1.8); Bilirubin, Total 0.7 mg/dL (0.1-1.0); Bun/Creatinine Ratio 14.3 (12.0-20.0); Calcium, Blood 8.8 mg/dL (8.5-10.1); Creatinine, Blood 1.05 mg/dL (0.60-1.20); Globulin, Blood 4.2 g/dL (2.2-4.0); Magnesium, Blood 1.6 mg/dL (1.6-2.4); Potassium, Blood 3.7 mmol/L (3.5-5.5); Total Protein, Blood 6.6 g/dL (6.4-8.2)
--- NOTE | 2022-03-15 15:58 | NUR ---
Patient is lying in bed and alert. Patient immediately asked to have the covers pulled up and over his shoulders and for a sip of his drink. He then talked at length about his disease progression, his constant infections and his living arrangements at [facility]. He shared about his abner and at times is quite funny with great commedic timing. 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 Patient spoke about his prayers and that he listens to the Bible on tape often. He explained about his attendance at [employer] 10 years ago and how he misses Pastor Epstein and the people who are members there. I reinforce helpful attitudes and practices, normalize his frustrations and provide therapeutic listening, Bible recitaion and prayer. Patient responded well and showed signs of being encouraged in his abner. I will continue to remain available to patient and family.
--- NOTE | 2022-03-15 19:14 | NUR ---
PT RESTING IN BED NO S/S OF ACUTE DISTRESS, SAFETY MEASURES IN PLACE REPORT GIVEN TO ON COMING NURSE.
--- NOTE | 2022-03-16 04:34 | NUR ---
SHIFT SUMMARY: Pt A/Ox4 and call light appropriate. Pt had some pain this shift but rated it mild and did not utilize any prn medications. He denies nausea, SOB, dizziness. No tele calls overnight. He was repostioned as tolerated. IV abx given per EMAR.
[2022-03-16 06:23] LABS: BASOPHILS ABSOLUTE AUTO 0.04 K/mm3 (0.00-0.23); BASOPHILS PERCENT AUTO 1 % (0-2); EOSINOPHILS ABSOLUTE AUTO 0.42 K/mm3 (0.00-0.68); EOSINOPHILS PERCENT AUTO 5 % (0-6); Hematocrit 34.8 % (37.0-53.0); Hemoglobin 10.6 g/dL (13.5-17.5); IMMATURE GRAN ABSOLUTE AUTO 0.03 K/mm3 (0.00-0.10); IMMATURE GRAN PERCENT AUTO 0 % (0-1); LYMPHOCYTES ABSOLUTE AUTO 0.81 K/mm3 (0.84-5.20); LYMPHOCYTES PERCENT AUTO 10 % (21-46); MONOCYTES ABSOLUTE AUTO 1.01 K/mm3 (0.16-1.47); MONOCYTES PERCENT AUTO 12 % (4-13); Mean Corpuscular HGB 25.5 pg (26.0-34.0); Mean Corpuscular HGB Conc 30.5 g/dL (31.5-36.5); Mean Corpuscular Volume 84 fL (80-100); Mean Platelet Volume 9.5 fL (9.1-12.4); NEUTROPHILS ABSOLUTE AUTO 6.16 K/mm3 (1.96-9.15); NEUTROPHILS PERCENT AUTO 73 % (41-73); Platelet Count 223 K/mm3 (150-400); RDW Coefficient Variation 17.2 % (11.7-14.2); RDW Standard Deviation 52.9 fL (35.1-46.3); Red Blood Cell Count 4.16 M/mm3 (4.30-5.90); White Blood Cell Count 8.47 K/mm3 (4.00-11.30)
[2022-03-16 06:34] LABS: Bun/Creatinine Ratio 13.7 (12.0-20.0); Calcium, Blood 8.6 mg/dL (8.5-10.1); Creatinine, Blood 1.02 mg/dL (0.60-1.20); Potassium, Blood 3.7 mmol/L (3.5-5.5)
--- NOTE | 2022-03-16 15:26 | NUR ---
WOUND CARE WOUND PHOTO AND ASSESSMENT IN HARD CHART. ORDERS IN [facility]. RECOMMEND EGGCRATE. REPOSITION Q2 HR
--- NOTE | 2022-03-16 16:48 | NUR ---
SHIFT SUMMARY NO ACUTE CHANGES THIS SHIFT. PT HAS BEEN AOX4, NAPPING THROUGHOUT THE DAY. HIS VANCOMYCIN WAS DISCONTINUED WELL HIS TELE. HIS COUSIN, TOMAS, CALLED FOR UPDATES. HE RECEIVED A BED BATH BY THE OR FIRST ASSIST REGISTERED NURSE THIS SHIFT. HIS OSTOMY BAG WAS ALSO CHANGED. THE WOUND CLINIC CONSULTED AND PUT IN ORDERS FOR HIS WOUND. WILL REPORT TO ONCOMING NURSE.
--- NOTE | 2022-03-17 03:57 | NUR ---
SHIFT MOSTLY UNREMARKABLE. PATIENT TOOK 2100 MEDICATIONS WITHOUT DIFFICULTY AND SLEPT THROUGH MOST OF REMAINDER OF SHIFT. Q 2 HOUR TURNS. PATIENT DENIES PAIN. CALL LIGHT LEFT WITHIN REACH.
[2022-03-17 15:54] LABS: Influenza A, PCR NEGATIVE (NEGATIVE); Influenza B, PCR NEGATIVE (NEGATIVE); Resp Syncytial Virus, PCR NEGATIVE (NEGATIVE); SARS-Cov-2 (COVID-19) PCR, MMC NEGATIVE (NEGATIVE)
--- NOTE | 2022-03-17 18:24 | NUR ---
DISCHARGE NOTE: PT PPIV REMOVED FROM RIGHT WRIST WITH NO DIFFICULTY AND CATHETER INTACTED. REPORT GIVEN TO [facility] NURSE DUVAL. TRANSPORT RECVIED PT WITH FACILITY DISCHARGE PACKET, FACESHEET, AND TRANSPORTED PT VIA GURNEY.
== END 2022-03-17 18:18 | DRG 698 ==
LOC: ER 08:07 → ERHOLD 12:16 → MEDS 12:16 → PCU 12:16 → MEDS 03-15 16:54
PROVIDERS: Nurse Practitioner Acute Care; Student in an Organized Health Care Education/Training Program; ADMIT Internal Medicine
DX: T83.511A Infection and inflammatory reaction due to indwelling urethral catheter, initial encounter (principal); A41.51 Sepsis due to Escherichia coli [E. coli]; G92.8 Other toxic encephalopathy; R65.20 Severe sepsis without septic shock; E87.20 Acidosis, unspecified; N39.0 Urinary tract infection, site not specified; F03.90 Unspecified dementia, unspecified severity, without behavioral disturbance, psychotic disturbance, mood disturbance, and anxiety; Z66 Do not resuscitate; F41.8 Other specified anxiety disorders; I48.0 Paroxysmal atrial fibrillation; I95.89 Other hypotension; K21.9 Gastro-esophageal reflux disease without esophagitis; N31.9 Neuromuscular dysfunction of bladder, unspecified; G35 Multiple sclerosis; D63.8 Anemia in other chronic diseases classified elsewhere; D50.9 Iron deficiency anemia, unspecified; Z20.822 Contact with and (suspected) exposure to COVID-19; Z88.2 Allergy status to sulfonamides; Z86.718 Personal history of other venous thrombosis and embolism; Z88.5 Allergy status to narcotic agent; Z88.8 Allergy status to other drugs, medicaments and biological substances; Z88.1 Allergy status to other antibiotic agents; Z79.899 Other long term (current) drug therapy; Z79.01 Long term (current) use of anticoagulants; Z79.2 Long term (current) use of antibiotics; Z87.442 Personal history of urinary calculi; Z96.0 Presence of urogenital implants; Y84.6 Urinary catheterization as the cause of abnormal reaction of the patient, or of later complication, without mention of misadventure at the time of the procedure; Z98.49 Cataract extraction status, unspecified eye; Z96.1 Presence of intraocular lens; Z98.890 Other specified postprocedural states; Z93.2 Ileostomy status
CPT/HCPCS: 0241U; 36415; 51702; 71045; 74177; 80048; 80053; 81001; 83605; 83735; 84145; 85025; 87040; 87077; 87086; 87186; 87507; 93005; 93010; 94660; 94762; 96365-59; 96366-59; 96367-59; 99285-25; A9270; C1751; C9113; J2185; J3370; J7030; J7040; J7050; J7120; Q9967

== ENCOUNTER 2022-03-25 19:45 | Inpatient (IN) | payer MEDICARE, OTHER ==
[~2022-03-25] VITALS: Ht 198.1 cm; Wt 104.3 kg
[~2022-03-25 19:45] MED LIST changes: +Cyclobenzaprine5 MG PO; +MONUROL3 GM PO
[2022-03-25 20:18] LABS: BASOPHILS ABSOLUTE AUTO 0.07 K/mm3 (0.00-0.23); BASOPHILS PERCENT AUTO 0 % (0-2); EOSINOPHILS ABSOLUTE AUTO 0.19 K/mm3 (0.00-0.68); EOSINOPHILS PERCENT AUTO 1 % (0-6); Hemoglobin 15.4 g/dL (13.5-17.5); IMMATURE GRAN ABSOLUTE AUTO 0.09 K/mm3 (0.00-0.10); IMMATURE GRAN PERCENT AUTO 0 % (0-1); LYMPHOCYTES ABSOLUTE AUTO 1.81 K/mm3 (0.84-5.20); LYMPHOCYTES PERCENT AUTO 9 % (21-46); MONOCYTES ABSOLUTE AUTO 0.87 K/mm3 (0.16-1.47); MONOCYTES PERCENT AUTO 4 % (4-13); Mean Corpuscular HGB 25.1 pg (26.0-34.0); Mean Corpuscular HGB Conc 30.2 g/dL (31.5-36.5); Mean Corpuscular Volume 83 fL (80-100); NEUTROPHILS ABSOLUTE AUTO 17.75 K/mm3 (1.96-9.15); NEUTROPHILS PERCENT AUTO 86 % (41-73); Platelet Count 694 K/mm3 (150-400); RDW Coefficient Variation 17.2 % (11.7-14.2); RDW Standard Deviation 51.1 fL (35.1-46.3); Red Blood Cell Count 6.14 M/mm3 (4.30-5.90); White Blood Cell Count 20.78 K/mm3 (4.00-11.30)
[2022-03-25 20:32] LABS: Albumin, Blood 3.7 g/dL (3.4-5.0); Albumin/Globulin Ratio 0.6 (0.8-1.8); Bilirubin, Total 0.5 mg/dL (0.1-1.0); Bun/Creatinine Ratio 23.8 (12.0-20.0); Calcium, Blood 10.3 mg/dL (8.5-10.1); Creatinine, Blood 1.3 mg/dL (0.60-1.20); Globulin, Blood 6.1 g/dL (2.2-4.0); Magnesium, Blood 1.9 mg/dL (1.6-2.4); Potassium, Blood 4.7 mmol/L (3.5-5.5); Total Protein, Blood 9.8 g/dL (6.4-8.2)
[2022-03-25 20:46] LABS: International Normalized Ratio 1.17; Prothrombin Time Results 12.2 Sec (9.7-11.5)
[2022-03-25 21:30] LABS: Influenza A, PCR NEGATIVE (NEGATIVE); Influenza B, PCR NEGATIVE (NEGATIVE); Resp Syncytial Virus, PCR NEGATIVE (NEGATIVE); SARS-Cov-2 (COVID-19) PCR, MMC NEGATIVE (NEGATIVE)
[2022-03-25 21:52] LABS: Source, Urine Foley catheter
[2022-03-25 21:54] LABS: Appearance, Urine Hazy (Clear); Bilirubin, Urine Neg (Neg); Blood, Urine 2+ (Neg); Color, Urine Yellow (P-Yellow); Glucose Qualitative, Urine Neg (Neg); Ketones, Urine Neg (Neg); Leukocyte Esterase, Urine 2+ (Neg); Nitrite, Urine Neg (Neg); Protein, Urine 2+ (Neg); Specific Gravity, Urine 1.015 (1.003-1.022); Urobilinogen, Urine NORM (Normal)
[2022-03-25 22:00] LABS: Amorphous Light (0-Heavy); Bacteria Mod /hpf; Mucus Light (0-Heavy); Red Blood Cells, Urine 0-2 /hpf (0-2); Squamous Epithelial Cells Not Seen /hpf (Few)
--- NOTE | 2022-03-26 00:43 | NUR ---
CRITICAL LACTIC OF 3.[address] AZAR, NO NEW ORDERS
[2022-03-26 04:25] LABS: BASOPHILS ABSOLUTE AUTO 0.09 K/mm3 (0.00-0.23); BASOPHILS PERCENT AUTO 0 % (0-2); EOSINOPHILS ABSOLUTE AUTO 0.02 K/mm3 (0.00-0.68); EOSINOPHILS PERCENT AUTO 0 % (0-6); Hematocrit 43.7 % (37.0-53.0); Hemoglobin 13.7 g/dL (13.5-17.5); IMMATURE GRAN ABSOLUTE AUTO 0.26 K/mm3 (0.00-0.10); IMMATURE GRAN PERCENT AUTO 1 % (0-1); LYMPHOCYTES ABSOLUTE AUTO 1.09 K/mm3 (0.84-5.20); LYMPHOCYTES PERCENT AUTO 3 % (21-46); MONOCYTES ABSOLUTE AUTO 1.13 K/mm3 (0.16-1.47); MONOCYTES PERCENT AUTO 3 % (4-13); Mean Corpuscular HGB 25.5 pg (26.0-34.0); Mean Corpuscular HGB Conc 31.4 g/dL (31.5-36.5); Mean Corpuscular Volume 81 fL (80-100); Mean Platelet Volume 8.6 fL (9.1-12.4); NEUTROPHILS ABSOLUTE AUTO 32.43 K/mm3 (1.96-9.15); NEUTROPHILS PERCENT AUTO 93 % (41-73); Platelet Count 511 K/mm3 (150-400); RDW Coefficient Variation 16.8 % (11.7-14.2); RDW Standard Deviation 49.4 fL (35.1-46.3); Red Blood Cell Count 5.38 M/mm3 (4.30-5.90); White Blood Cell Count 35.02 K/mm3 (4.00-11.30)
[2022-03-26 04:42] LABS: Albumin, Blood 2.9 g/dL (3.4-5.0); Albumin/Globulin Ratio 0.6 (0.8-1.8); Bilirubin, Total 0.7 mg/dL (0.1-1.0); Bun/Creatinine Ratio 24.3 (12.0-20.0); Calcium, Blood 8.9 mg/dL (8.5-10.1); Creatinine, Blood 1.03 mg/dL (0.60-1.20); Potassium, Blood 4.7 mmol/L (3.5-5.5); Total Protein, Blood 7.9 g/dL (6.4-8.2)
--- NOTE | 2022-03-26 06:06 | NUR ---
PT SOLMNOLENT, UNABLE TO CLEAR SECRETIONS, UP TO 3LPM NC FROM BASELINE OF 2LPM, AFEBRILE, 3L IV FLUID INTAKE, 575 UO, 200 OSTOMY OUTPUT, NS AT 75ML/HR X 1 LITER RUNNING CURRENTLY, B/P TRENDING DOWN, REMAINS ST ON TELE 110-120'S, LACTIC THIS AM 1,6, WBC'S 35K, WILL CONTINUE TO MONITOR UNTIL SHIFT CHANGE
[2022-03-26] MEDS ORDERED: Promod946 ML PO ×2 (06:31→06:32)
[2022-03-26] MEDS ORDERED: MULVITA PO (06:42)
[2022-03-26] MEDS ORDERED: Florastor250 MG PO (06:48)
--- NOTE | 2022-03-26 18:07 | NUR ---
SHIFT SUMMARY PT IS ALERT AND ORIENTED X 4, HE IS ABLE TO MAKE HIS NEEDS KNOWN AND USES HIS TAB ALARM APPROPRIATELY. HE IS ABLE TO USE HIS RIGHT ARM BUT LEFT ARM IS FLACID, BILAT LOWER EXTREM ARE ALSO FLACID. SPO2 MAINTAINED >93% VIA 3.5 L NC. HE HAS AN OCCASIONAL MOIST COUGH, SUCTION PROVIDED PRN AND PT WILL ALLOW. TELE MONITORING IN PLACE AND HR IS ST 100-110'S. BP STABLE. THIS RN CHANGED COLOSTOMY UNIT DURING SHIFT. WOUND ON COCCYX ALSO CLEANED W/ WOUND CLEANSER AND NEW MEPILEX APPLIED, ORDERS FOR WOUND CONSULT IN PLACE. Q2 TURNING IMPLIMENTED TO KEEP OF PRESSURE POINT. ANTIBIOTIC OINTMENT APPLIED TO BILAT SHINS, HEEL PROTECTORS IN PLACE AND HEELS ARE FLOATED. SEE CHART FOR WOUND PHOTOS. PG IN [place] IS INFUSING NS PER EMAR ORDERS. PT REMAINS NPO. ORAL CARE PROVIDED THIS AM BUT PT DECLINED ORAL CARE 2X, SEE ADL'S FOR TIME. CLEARY CATHETER IS IN PLACE DRAINING TO GRAVITY. PT IS NOW SITTING UP IN BED WATCHING TV, TAB ALARM IS IN PLACE. WILL CONTINUE TO MONITOR UNTIL REPORT GIVEN.
[2022-03-27 04:31] LABS: BASOPHILS ABSOLUTE AUTO 0.07 K/mm3 (0.00-0.23); BASOPHILS PERCENT AUTO 0 % (0-2); EOSINOPHILS ABSOLUTE AUTO 0.31 K/mm3 (0.00-0.68); EOSINOPHILS PERCENT AUTO 2 % (0-6); Hematocrit 40.6 % (37.0-53.0); Hemoglobin 12.4 g/dL (13.5-17.5); IMMATURE GRAN ABSOLUTE AUTO 0.04 K/mm3 (0.00-0.10); IMMATURE GRAN PERCENT AUTO 0 % (0-1); LYMPHOCYTES PERCENT AUTO 8 % (21-46); MONOCYTES PERCENT AUTO 7 % (4-13); Mean Corpuscular HGB 25.3 pg (26.0-34.0); Mean Corpuscular HGB Conc 30.5 g/dL (31.5-36.5); Mean Corpuscular Volume 83 fL (80-100); Mean Platelet Volume 9.1 fL (9.1-12.4); NEUTROPHILS ABSOLUTE AUTO 13.98 K/mm3 (1.96-9.15); NEUTROPHILS PERCENT AUTO 83 % (41-73); Platelet Count 408 K/mm3 (150-400); RDW Coefficient Variation 17.2 % (11.7-14.2); RDW Standard Deviation 51.8 fL (35.1-46.3)
[2022-03-27 04:54] LABS: Bun/Creatinine Ratio 24.6 (12.0-20.0); Calcium, Blood 8.9 mg/dL (8.5-10.1); Creatinine, Blood 0.98 mg/dL (0.60-1.20); Potassium, Blood 4.2 mmol/L (3.5-5.5)
--- NOTE | 2022-03-27 05:58 | NUR ---
NO ISSUES OVERNIGHT, 575 UO, AFEBRILE, A COUPLE OF SOFT B/P'S HOWEVER MAP CONSISTENTLY ABOVE 65, NSR IN 80'S, 2 LPM NC KEPT SATS > 90%, WBC'S 16K THIS AM, PT RESTED WELL, WILL CONTINUE TO MONITOR UNTIL SHIFT CHANGE
--- NOTE | 2022-03-27 17:46 | NUR ---
SHIFT SUMMARY: PT A&Ox4 T/OUT SHIFT, USING CALL LIGHT APPROPRIATELY. L ARM AND BLE CONTINUE FLACCID, FULL USE OF RUE. O2 SATS MAINTAINED >93%, CURRENTLY RECEIVING O2 AT 2.5 L/MIN NC. SR ON MONITOR WITH RATE 80s-90s, PT DENIES CP. PT DENIED HAVING COLOSTOMY BAG EMPTIED, STATES HE WANTS TO WAIT UNTIL HE IS FINISHED W/DINNER. INDWELLING CLEARY PATENT, DRAINING YELLOW COLORED URINE TO GRAVITY. WOUND CONSULTATION COMPLETED TODAY W/NEW ORDERS IN PLACE. Q2H TURNS COMPLETED PER ORDERS, ORAL CARE PROVIDED WHEN PT ALLOWED. WILL CONTINUE TO MONITOR AND TREAT ACCORDINGLY UNTIL CHANGE OF SHIFT.
--- NOTE | 2022-03-28 05:12 | NUR ---
SHIFT SUMMARY NO ACUTE CHANGES FOR THE PT OVERNIGHT. A/O X4, PLEASANT AND COOPERATIVE. SR/ST ON TELE RATES 80-100'S. PT ON 2.5L O2 VIA NC. O2 SAT >92%. OTHER VSS. PT REPOSITIONED Q2H PT ALLOWED. PT CLEARY IN PLACE, DRAINING TO GRAVITY. WILL CONTINUE TO CARE FOR PT AND REPORT TO DAY SHIFT NURSE.
[2022-03-28 08:48] LABS: BASOPHILS ABSOLUTE AUTO 0.06 K/mm3 (0.00-0.23); BASOPHILS PERCENT AUTO 1 % (0-2); EOSINOPHILS ABSOLUTE AUTO 0.34 K/mm3 (0.00-0.68); EOSINOPHILS PERCENT AUTO 3 % (0-6); Hematocrit 40.8 % (37.0-53.0); Hemoglobin 12.5 g/dL (13.5-17.5); IMMATURE GRAN ABSOLUTE AUTO 0.02 K/mm3 (0.00-0.10); IMMATURE GRAN PERCENT AUTO 0 % (0-1); LYMPHOCYTES ABSOLUTE AUTO 1.12 K/mm3 (0.84-5.20); LYMPHOCYTES PERCENT AUTO 11 % (21-46); MONOCYTES ABSOLUTE AUTO 0.82 K/mm3 (0.16-1.47); MONOCYTES PERCENT AUTO 8 % (4-13); Mean Corpuscular HGB 25.7 pg (26.0-34.0); Mean Corpuscular HGB Conc 30.6 g/dL (31.5-36.5); Mean Corpuscular Volume 84 fL (80-100); Mean Platelet Volume 9.1 fL (9.1-12.4); NEUTROPHILS ABSOLUTE AUTO 7.84 K/mm3 (1.96-9.15); NEUTROPHILS PERCENT AUTO 77 % (41-73); Platelet Count 380 K/mm3 (150-400); RDW Coefficient Variation 17.3 % (11.7-14.2); RDW Standard Deviation 53.2 fL (35.1-46.3); Red Blood Cell Count 4.87 M/mm3 (4.30-5.90)
[2022-03-28] MEDS ORDERED: PROBIOTIC1 EA13 PO (10:55)
[2022-03-28] MEDS ORDERED: JUVEN PACKET1 EAC3 PO (11:00)
[2022-03-28] MEDS ORDERED: Promod946 ML PO (11:00)
--- NOTE | 2022-03-28 12:46 | NUR ---
UPDATE/DISCHARGE: MULTIPLE ATTEMPTS TO GIVE REPORT TO [facility] STAFF VIA TELEPHONE, BUT UNABLE TO CONNECT, PHONE DOESN'T EVEN RING. POWERGLIDE DC'd WNL. PT AWAITING TRANSPORT BACK TO [facility], PAPERWORK TO GO W/PT.
== END 2022-03-28 13:36 | disposition home or self-care (01) | DRG 872 ==
LOC: ER 19:45 → PCU 22:47 → ENPENDDIS 03-28 09:33 → PCU 03-28 13:36
PROVIDERS: Family Medicine; Family Medicine Adult Medicine; Student in an Organized Health Care Education/Training Program; ADMIT Internal Medicine
DX: A41.9 Sepsis, unspecified organism (principal); N39.0 Urinary tract infection, site not specified; N17.9 Acute kidney failure, unspecified; I48.20 Chronic atrial fibrillation, unspecified; E87.20 Acidosis, unspecified; Z66 Do not resuscitate; Z20.822 Contact with and (suspected) exposure to COVID-19; R65.20 Severe sepsis without septic shock; K29.70 Gastritis, unspecified, without bleeding; G35 Multiple sclerosis; I48.0 Paroxysmal atrial fibrillation; F41.8 Other specified anxiety disorders; F03.90 Unspecified dementia, unspecified severity, without behavioral disturbance, psychotic disturbance, mood disturbance, and anxiety; N31.9 Neuromuscular dysfunction of bladder, unspecified; K21.9 Gastro-esophageal reflux disease without esophagitis; Z87.442 Personal history of urinary calculi; Z86.718 Personal history of other venous thrombosis and embolism; Z93.2 Ileostomy status; Z98.890 Other specified postprocedural states; Z88.1 Allergy status to other antibiotic agents; Z88.2 Allergy status to sulfonamides; Z88.5 Allergy status to narcotic agent; Z88.8 Allergy status to other drugs, medicaments and biological substances; Z79.01 Long term (current) use of anticoagulants; Z79.899 Other long term (current) drug therapy
CPT/HCPCS: 0241U; 36415; 51702; 71045; 74176; 80048; 80053; 81001; 83605; 83735; 84145; 85025; 85610; 85730; 87086; 92610; 93005; 93010; 96365-59; 96367-59; 96375-59; 99285-25; A9270; C9113; J1650; J2185; J2405; J2543; J7030

== ENCOUNTER → 2022-04-25 | Outpatient (CLI) | payer MEDICARE, OTHER ==
[~2022-04-25] MED LIST changes: +JUVEN PACKET1 EAC3 PO; +MULVITA PO; +PROBIOTIC1 EA13 PO; +Promod946 ML PO
[2022-04-25 14:49] LABS: Source, Urine Straight Cath
[2022-04-25 15:41] LABS: Appearance, Urine Hazy (Clear); Bilirubin, Urine Neg (Neg); Blood, Urine 3+ (Neg); Glucose Qualitative, Urine Neg (Neg); Ketones, Urine Neg (Neg); Leukocyte Esterase, Urine 3+ (Neg); Nitrite, Urine Neg (Neg); Protein, Urine 1+ (Neg); Urobilinogen, Urine NORM (Normal)
[2022-04-25 15:54] LABS: Color, Urine Pale Yellow (P-Yellow)
[2022-04-25 15:56] LABS: Bacteria Many /hpf; Squamous Epithelial Cells Not Seen /hpf (Few); White Blood Cells, Urine 50-100 /hpf (0-5)
== END ==
LOC: EDSTATUS 09:48 → LAB RH 13:00
PROVIDERS: Internal Medicine
DX: N39.0 Urinary tract infection, site not specified (principal)
CPT/HCPCS: 81001; 87077; 87086; 87186

== ENCOUNTER 2022-10-22 13:23 | Emergency (ER) | payer MEDICARE, OTHER ==
[~2022-10-22] VITALS: Ht 195.6 cm; Wt 111.1 kg
[2022-10-22] MEDS ORDERED: Benadryl 50 mg50 MG PO (14:50)
[2022-10-22 15:00] VITALS: BP 97/55
== END 2022-10-22 16:37 | disposition home or self-care (01) ==
LOC: ER 13:23
DX: L29.9 Pruritus, unspecified (principal); G35 Multiple sclerosis; Z88.2 Allergy status to sulfonamides; Z88.5 Allergy status to narcotic agent; Z88.6 Allergy status to analgesic agent; Z88.1 Allergy status to other antibiotic agents; Z79.899 Other long term (current) drug therapy; I48.91 Unspecified atrial fibrillation; K21.9 Gastro-esophageal reflux disease without esophagitis; Z87.891 Personal history of nicotine dependence
CPT/HCPCS: 99284; A9270

== ENCOUNTER 2023-04-07 19:58 | Inpatient (IN) | payer MEDICARE, OTHER ==
[~2023-04-07] VITALS: Ht 198.1 cm; Wt 124.0 kg
[~2023-04-07 19:58] MED LIST changes: +Benadryl 50 mg50 MG PO
[2023-04-07 20:52] LABS: BASOPHILS ABSOLUTE AUTO 0.03 K/mm3 (0.00-0.23); BASOPHILS PERCENT AUTO 0 % (0-2); EOSINOPHILS ABSOLUTE AUTO 0.15 K/mm3 (0.00-0.68); EOSINOPHILS PERCENT AUTO 2 % (0-6); Hematocrit 48.7 % (37.0-53.0); Hemoglobin 15.2 g/dL (13.5-17.5); IMMATURE GRAN ABSOLUTE AUTO 0.02 K/mm3 (0.00-0.10); IMMATURE GRAN PERCENT AUTO 0 % (0-1); LYMPHOCYTES ABSOLUTE AUTO 0.72 K/mm3 (0.84-5.20); LYMPHOCYTES PERCENT AUTO 7 % (21-46); MONOCYTES ABSOLUTE AUTO 1.19 K/mm3 (0.16-1.47); MONOCYTES PERCENT AUTO 12 % (4-13); Mean Corpuscular HGB 27.2 pg (26.0-34.0); Mean Corpuscular HGB Conc 31.2 g/dL (31.5-36.5); Mean Corpuscular Volume 87 fL (80-100); Mean Platelet Volume 9.1 fL (9.1-12.4); NEUTROPHILS ABSOLUTE AUTO 7.99 K/mm3 (1.96-9.15); NEUTROPHILS PERCENT AUTO 79 % (41-73); Platelet Count 240 K/mm3 (150-400); RDW Coefficient Variation 15.9 % (11.7-14.2); RDW Standard Deviation 50.5 fL (35.1-46.3); Red Blood Cell Count 5.59 M/mm3 (4.30-5.90)
[2023-04-07 21:13] LABS: Influenza A, PCR NEGATIVE (NEGATIVE); Influenza B, PCR NEGATIVE (NEGATIVE); SARS-Cov-2 (COVID-19) PCR, MMC NEGATIVE (NEGATIVE)
[2023-04-07 21:14] LABS: Resp Syncytial Virus, PCR POSITIVE (NEGATIVE)
[2023-04-07 21:16] LABS: Albumin/Globulin Ratio 0.6 (0.8-1.8); Bilirubin, Total 0.5 mg/dL (0.1-1.0); Bun/Creatinine Ratio 16.9 (12.0-20.0); Calcium, Blood 8.9 mg/dL (8.5-10.1); Creatinine, Blood 0.77 mg/dL (0.60-1.20); Globulin, Blood 4.7 g/dL (2.2-4.0); Potassium, Blood 4.6 mmol/L (3.5-5.5); Total Protein, Blood 7.7 g/dL (6.4-8.2)
[2023-04-07] MEDS ORDERED: NS 1,000 ML IV SCH ×2 (21:20→23:47)
[2023-04-07] MEDS ORDERED: Acetaminophen 500 MG Tab PO ONE (22:45)
[2023-04-07] MEDS ORDERED: FLU VACC QS2023-24(6MOS UP)/PF 60 MCG/0.5 ML SYRINGE IM ONE (23:40)
[2023-04-07 23:53] LABS: Source, Urine Straight Cath
[2023-04-07 23:56] LABS: Bilirubin, Urine Neg (Neg); Blood, Urine 4+ (Neg); Glucose Qualitative, Urine Neg (Neg); Ketones, Urine Neg (Neg); Leukocyte Esterase, Urine 3+ (Neg); Nitrite, Urine Neg (Neg); Protein, Urine 1+ (Neg); Urobilinogen, Urine NORM (Normal)
[2023-04-07 23:57] LABS: Appearance, Urine Hazy (Clear); Color, Urine Yellow (P-Yellow)
[2023-04-08 00:09] LABS: Bacteria Few /hpf; Mucus Light (0-Heavy); Red Blood Cells, Urine 0-2 /hpf (0-2); Squamous Epithelial Cells Not Seen /hpf (Few); White Blood Cells, Urine 50-100 /hpf (0-5); Yeast/Fungi Urine Many /hpf
--- NOTE | 2023-04-08 02:01 | NUR ---
ADMIT NOTE PT TRANSFERRED TO UNIT VIA ED TARAS, SLID TO HOSPITAL BED WITH SLIDER SHEET. ORIENTED PT TO CALL LIGHT AND ROOM. RECEIVED REPORT FROM WALLACE ALAMO RN. EDUCATED PT ON NO SMOKING POLICY AND FIRE. PT CURRENTLY ON 4L O2 VIA NC. BED IN LOWEST POSITION WITH CALL LIGHT WITHIN REACH. CONTACT PRECAUTIONS MAINTAINED.
[2023-04-08 02:47] VITALS: BP 121/76
[2023-04-08] MEDS ORDERED: CefTRIAXone Sodium 1,000 MG in NS 50 ML IV SCH (02:51)
[2023-04-08] MEDS ORDERED: Ipratropium/Albuterol SulF 2.5-0.5MG/3 ML Amp INH PRN (03:25)
[2023-04-08] MEDS ORDERED: Albuterol 2.5 MG/3 ML VIAL INH PRN (03:55)
--- NOTE | 2023-04-08 06:32 | NUR ---
SHIFT SUMMARY PT A&O, COOPERATIVE WITH CARE. PT HAS ILEOSTOMY TO MID ABDOMEN. CHRONIC INDWELLING CATHETER PATENT AND DRAINING. PT ON TELE RUNNING ST @ 101. DENIES ANY CP OR PRESSURE. PT HAS HX OF MS AND IS PARAPALEGIC. 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 PT ONLY ABLE TO USE HIS RIGHT HAND. CURRENTLY ON 2L O2 WITH SATS ABOVE 92%. REQUIRES ASSISTANCE WITH FEEDING AND ROLLING. HEEL PROTECTORS IN PLACE AND MEPILEX TO COCCYX. BED IN LOWEST POSITION WITH CALL LIGHT WITHIN REACH.
[2023-04-08 07:49] VITALS: BP 129/76
[2023-04-08] MEDS ORDERED: Lactobacil 2-S.Thermo-Bifido 1 1 Cap PO SCH (09:00)
[2023-04-08] MEDS ORDERED: Benzonatate 100 MG Cap PO PRN (11:40)
[2023-04-08] MEDS ORDERED: VITAMIN D5000 UNIT PO (11:51)
[2023-04-08] MEDS ORDERED: B-COMPLEX1 EACH PO (11:52)
[2023-04-08] MEDS ORDERED: CEPH500 PO (11:56)
[2023-04-08] MEDS ORDERED: PREG75 PO (12:00)
[2023-04-08] MEDS ORDERED: FOSFOMYCIN TROME3 G1 PO (12:26)
[2023-04-08] MEDS ORDERED: LIPOIC ACID PO (12:54)
[2023-04-08] MEDS ORDERED: Muri-Lube Minera2 ML BOTHEARS (13:00)
[2023-04-08] MEDS ORDERED: Acetaminophen 325 MG TABLET PO PRN (13:30)
[2023-04-08] MEDS ORDERED: DiphenhydrAMINE HCL 25 MG Cap PO PRN (13:30)
[2023-04-08] MEDS ORDERED: ClonazePAM 1 MG Tab PO SCH (14:00)
[2023-04-08] MEDS ORDERED: Pregabalin 75 MG Cap PO SCH (14:00)
[2023-04-08 18:45] VITALS: BP 133/70
--- NOTE | 2023-04-08 19:21 | NUR ---
PATIENT PLEASANT TO CARE, MAKES NEEDS KNOWN, SLOW TO RESPOND AND SPEAK, HOME MEDICATION FINALIZAED AND MEDICATION DISPENCED AT 1300. SPOKE WITH 1ST COUSIN TOMAS, PATIENT ALSO CALLED HER. SHALLOW WEAK COUGH, RT TX ONCE TODAY, NO CHANGE IN TELE, CALL LLIGHT WITH IN REACH
[2023-04-08 20:46] VITALS: BP 121/75
[2023-04-08] MEDS ORDERED: NS 250 ML IV PRN (21:00)
[2023-04-08] MEDS ORDERED: Cyclobenzaprine HCl 10 MG Tab PO SCH (21:00)
[2023-04-08] MEDS ORDERED: Naltrexone HCl 50 MG Tab PO SCH (21:00)
[2023-04-08] MEDS ORDERED: Ursodiol 300 MG Cap PO SCH (21:00)
[2023-04-08] MEDS ORDERED: Cholecalciferol 1000 Unit Tablet (=25MCG) PO SCH (21:00)
[2023-04-08] MEDS ORDERED: Apixaban 5 MG Tab PO SCH (21:00)
[2023-04-09 03:56] VITALS: BP 122/71
--- NOTE | 2023-04-09 04:52 | NUR ---
SHIFT SUMMARY PT A&O X4, COOPERATIVE BUT VERY PARTICULAR ABOUT HIS CARE. PT HAS ILEOSTOMY AND CHRONIC CLEARY, PATENT AND DRAINING DARK YELLOW URINE. PT ON 2L O2 VIA NC. COMPLAINED OF HEADACHE THIS SHIFT, MEDICATED PER EMAR. BLOOD CULTURES X1 CAME BACK POSITIVE FOR GRAM POSITIVE COCCI AND CLUSTERS. PT IS PARAPLEGIC AND CAN ONLY USE HIS RIGHT HAND. RESPOSTIONED PRN. HEEL PROTECTORS IN PLACE AND MEPILEX TO COCCYX WOUND. BED KEPT IN LOWEST POSITION WITH CALL LIGHT IN REACH. PROVIDED PT WITH SOFT TOUCH CALL LIGTH. PT ABLE TO CALL FOR NEEDS.
[2023-04-09] MEDS ORDERED: Pantoprazole Sodium 20 MG Tab PO SCH (06:00)
[2023-04-09 07:35] VITALS: BP 120/71
[2023-04-09] MEDS ORDERED: Mupirocin 2% Ointment 22 GM TOP SCH (09:00)
[2023-04-09] MEDS ORDERED: Metoprolol Tartrate 25 MG Tab PO SCH (09:00)
[2023-04-09] MEDS ORDERED: Ferrous Sulfate 325 MG Tab PO SCH (09:00)
[2023-04-09] MEDS ORDERED: Midodrine 2.5 MG Tab PO SCH (09:00)
[2023-04-09] MEDS ORDERED: Arginine/Glutamine/Calcium Hmb 1 Packet PO SCH (09:00)
[2023-04-09] MEDS ORDERED: DULoxetine HCL 30 MG Cap DR PO SCH (09:00)
[2023-04-09] MEDS ORDERED: Multivitamins 1 Tab PO SCH (09:00)
[2023-04-09] MEDS ORDERED: Vitamin B Complex 1 EA Softgel PO SCH (09:00)
[2023-04-09 13:04] LABS: SARS-Cov-2 (COVID-19) PCR, MMC NEGATIVE (NEGATIVE)
[2023-04-09] MEDS ORDERED: Furosemide 10 MG/ML 4ML Vial IV SCH (14:00)
[2023-04-09] MEDS ORDERED: Vancomycin HCL 2,500 MG in NS 250 ML IV SCH (15:00)
--- NOTE | 2023-04-09 16:48 | NUR ---
SHIFT SUMMARY A&OX4, SOFT/MUMBLED SPEECH. REFUSED TO BE TURNED A COUPLE TIMES DURING SHIFT. BED BATH COMPLETED WITH DRYWALL MECHANIC. ILEOSTOMY OUTPUT IS LIQUID BROWN WITH FROTH. CHRONIC CLEARY OUTPUT IS YELLOW WITH SEDIMENT. DENIED CP/PRESSURE, HEADACHE, DIZZINESS. SOB NOTED T/O SHIFT. O2 INCREASED TO 4L VIA NC WITH AN AVERAGE O2 SAT OF 93%. APPLIED OINTMENT TO BLE AND WRAPPED WITH KERLEX. MEPLIEX ON COCCYX COVERING STAGE 2 PU. BLOOD CULTURES CAME BACK POSITIVE. PLAN FOR DISCHARGE BACK TO [facility] TOMORROW. [facility] CURRENTLY RUNNING. BED IN LOWEST POSITION. CALL LIGHT WITHIN REACH.
[2023-04-09 20:19] VITALS: BP 128/76
[2023-04-09] MEDS ORDERED: GuaiFENesin 600 MG TabCR PO SCH (21:00)
[2023-04-10] MEDS ORDERED: Vancomycin HCL 1,250 MG in NS 250 ML IV SCH (05:00)
--- NOTE | 2023-04-10 05:00 | NUR ---
CALLED DIETARY TO ORDER OMELET FOR PT BREAKFAST. SPOKE WITH NKECHI.
[2023-04-10] MEDS ORDERED: Aspirin 325 MG Tab PO ONE (07:00)
[2023-04-10 07:10] LABS: Bun/Creatinine Ratio 15.5 (12.0-20.0); Calcium, Blood 9.1 mg/dL (8.5-10.1); Creatinine, Blood 1.1 mg/dL (0.60-1.20); Potassium, Blood 3.7 mmol/L (3.5-5.5)
--- NOTE | 2023-04-10 07:13 | NUR ---
SHIFT SUMMARY PT AWAKE THROUGH NIGHT SMALL NAPS THROUGHOUT. MEDICATED FOR PAIN X2. PT FEVER INCREASED FROM 99.4 TO 101.7 TEMPORAL ONE HOUR AFTER TYLENOL ADMINISTRATION. CALLED IN ORDER FOR ASPIRIN PO. PT NEEDED TO BE SUCTIONED SEVERAL TIMES THROUGH NIGHT. SPUTUM BROWN TINGED. PT COOPERATIVE WITH CARE.
[2023-04-10 07:51] VITALS: BP 112/71
[2023-04-10 10:53] LABS: Base Excess Venous 5.4 mmol/L; Bicarbonate Venous 27.9 mmol/L (24.0-30.0); pH Blood Venous 7.38 (7.34-7.37)
[2023-04-10 13:43] LABS: U Amphetamine Screen Not Detected; U Barbituate Screen Not Detected; U Benzodiazapine Screen Not Detected; U Buprenorphine Screen Not Detected; U Cannabinoids Screen Not Detected; U Cocaine Screen Not Detected; U Methadone Screen Not Detected; U Methamphetamine Screen Not Detected; U Opiates Screen Not Detected; U Oxycodone Screen Not Detected; U Phencyclidine Screen Not Detected
[2023-04-10 15:17] VITALS: BP 130/85
--- NOTE | 2023-04-10 18:17 | NUR ---
SHIFT SUMMARY PATIENT LETHARGIC FOR MOST OF SHIFT. LOW GRADE FEVER THIS MORNING THAT RESOLVED AFTER TYLENOL, ASA, AND A FAN. PATIENT STARTED ON BIPAP WITH 11L BLEED IN THIS AFTERNOON. DENIED CP/PRESSURE, HEADACHE, OR DIZZINESS. OCCASIONAL SOB AND PRODUCTIVE COUGH. SUCTIONED PATIENT 3X T/O SHIFT WITH LOMBARDI TO BROWN TINGED SPUTUM. CXR AND VBG'S DONE TODAY R/T TO DECREASED O2 SAT, CONGESTION AND DECREASED MENTAL STATUS. PATIENT IS CURRENTLY BEING FED DINNER. CALL LIGHT WITH IN REACH.
[2023-04-10 19:15] VITALS: BP 143/96
[2023-04-10] MEDS ORDERED: Pregabalin 50 MG Capsule PO SCH (21:00)
[2023-04-11 05:24] LABS: Base Excess Venous 6.7 mmol/L; Bicarbonate Venous 29.4 mmol/L (24.0-30.0); PCO2 Venous 47.3 mmHg (38-42); pH Blood Venous 7.43 (7.34-7.37)
[2023-04-11 05:29] LABS: BASOPHILS ABSOLUTE AUTO 0.06 K/mm3 (0.00-0.23); BASOPHILS PERCENT AUTO 1 % (0-2); EOSINOPHILS ABSOLUTE AUTO 0.53 K/mm3 (0.00-0.68); EOSINOPHILS PERCENT AUTO 7 % (0-6); Hematocrit 47.6 % (37.0-53.0); IMMATURE GRAN ABSOLUTE AUTO 0.01 K/mm3 (0.00-0.10); IMMATURE GRAN PERCENT AUTO 0 % (0-1); LYMPHOCYTES ABSOLUTE AUTO 1.32 K/mm3 (0.84-5.20); LYMPHOCYTES PERCENT AUTO 18 % (21-46); MONOCYTES ABSOLUTE AUTO 1.32 K/mm3 (0.16-1.47); MONOCYTES PERCENT AUTO 18 % (4-13); Mean Corpuscular HGB 27.3 pg (26.0-34.0); Mean Corpuscular HGB Conc 31.5 g/dL (31.5-36.5); Mean Corpuscular Volume 87 fL (80-100); Mean Platelet Volume 9.2 fL (9.1-12.4); NEUTROPHILS PERCENT AUTO 55 % (41-73); Platelet Count 221 K/mm3 (150-400); RDW Coefficient Variation 16.7 % (11.7-14.2); RDW Standard Deviation 52.1 fL (35.1-46.3); Red Blood Cell Count 5.49 M/mm3 (4.30-5.90); White Blood Cell Count 7.24 K/mm3 (4.00-11.30)
[2023-04-11 05:52] LABS: Bun/Creatinine Ratio 20.8 (12.0-20.0); Creatinine, Blood 1.01 mg/dL (0.60-1.20); Potassium, Blood 3.4 mmol/L (3.5-5.5)
--- NOTE | 2023-04-11 06:03 | NUR ---
SHIFT SUMMARY PT WAS ABLE TO SPEAK BETTER THIS SHIFT THAN PREVIOUS NIGHT. TALKED ABOUT HIS DAUGHTER AND HER FOUR CHILDREN, AND HER . VOICED CONCERN FOR NOT BEING ABLE TO BREATH THROUGH NARES DT CONGESTION. USING SUCTION, WE WERE ABLE TO CLEAR NARES SO HE COULD BREATH. REQUESTED HIS BIPAP OFF AND NC PLACED. ASKED FOR BUBBLER FOR HYDRATING O2. PASSED ON TO RT CONSULT WITH SUSAN. PT ENJOYS VANILLA YOGURT, AND ASKED THAT HE PLEASE GET SOME WITH BREAKFAST. PT STILL COUGHING UP THICK MUCUS, WHICH NEEDS TO BE SUCTIONED, PT CANNOT COUGH EFFECTIVELY FOR CLEARING OUT OF THROAT. HE HAS BEEN PLEASANT AND COOPERATIVE WITH CARE.
[2023-04-11 07:43] VITALS: BP 127/80
[2023-04-11] MEDS ORDERED: Furosemide 40 MG Tab PO SCH (09:00)
[2023-04-11 15:27] VITALS: BP 102/76
[2023-04-11] MEDS ORDERED: Dexamethasone Sodium Phosphate 4 MG/ML 1ML Vial IV SCH (17:00)
--- NOTE | 2023-04-11 18:26 | NUR ---
SHIFT SUMMARY PT AOX4, SOFT AND SLOW SPEECH. CALLS WITH HIS SOFT CALL LIGHT WHEN NEEDED. HE HAS SLEPT MOST OF THE DAY. OXYGEN SATURATIONS MAINTAINING ABOVE 90. PT ON ASPIRATION PRECAUTIONS, MEDICATIONS GIVEN WITH APPLESAUCE. SUCTION AT THE BS, USED T/O THE SHIFT. PT REPOSITIONED, DRESSING CHANGE TO BLLE COMPLETED TODAY. PLAN IS FOR HIM TO RETURN TO [facility]. CALL LIGHT WITHIN REACH, BED IN THE LOWEST POSITION. WILL REPORT TO ONCOMING NURSE.
[2023-04-11 19:56] VITALS: BP 107/75
[2023-04-11] MEDS ORDERED: ClonazePAM 0.5 MG Tab PO SCH (21:00)
[2023-04-12 03:52] VITALS: BP 105/68
--- NOTE | 2023-04-12 04:35 | NUR ---
1900: ASSUMED CARE OF PT, BEDSIDE REPORT RECEIVED FROM DAY SHIFT RN. PT IS LAYING IN BED ON HIS BACK WITH PILLOWS FOR SUPPORT. BLE DRESSINGS ARE C/D/I, CUSHIONED BOOTS ON BLFEET, ELEVATED ON PILLOWS. OXYGEN WAS AT 6 LITERS AT THE START OF THE SHIFT, ABLE TO WEAN DOWN TO 3LPM VIA NC DURING THE NIGHT WITH OXYGEN SATURATION MAINTAINED >90%. PT TOLERATING DECREASE WELL. ILEOSTOMY IS MAINTAINED, CATHETER IS CLEANED AND FOUND TO BE DRAINING FREELING INTO DEPENDENT COLLECTION BAG. Q2 TURNS ATTEMPTED, PT REFUSED AT TIMES TO BE MOVED R/T BEING COMFORTABLE. EDUCATED PT ON SKIN INTEGRITY AND INTERVENTIONS. PT VERBALIZED UNDERSTANDING. SAFETY MEASURES TAKEN, ALL NEEDS ADDRESSED DURING THE SHIFT.
[2023-04-12 07:19] VITALS: BP 97/68
[2023-04-12 08:00] VITALS: BP 112/58
[2023-04-12 15:53] VITALS: BP 94/60
--- NOTE | 2023-04-12 16:27 | NUR ---
NOTE PT ALERT. FREQUENT COUGHING WITH DRINKING. HE DOESN'T CARE. YELLED AT THE SLAG MIXER AT LUNCH. SHE DECLINED TO CONTINUE TO HELP HIM WITH LIQUIDS OFFERED TO CONTINUE WITH THE ONTRAY. HE YELLED FOR HER TO GET OUT. REFUSED TO TURN. HAVE THE AIR BED ON AUTO TURN Q20 MINUTES. BLE WOUND CARE DONE. FEET WITH CAAL BOOTS ON. OSTOMY CARE DONE. PT ABLE TO USE SOFT TOUCH TO MAKE NEEDS KNOWN. DENIED PAIN OR DISCOMFORT. 3L N/C CONT BIOX 93-95%. CAREONGOING.
[2023-04-12 17:00] VITALS: BP 109/66
--- NOTE | 2023-04-12 18:56 | NUR ---
COUGH PT COUGHING WITH EVERY SWALLOW OF LIQUID. CUED HIM TO TUCK HIS CHIN. THICKENED THE LIQUID MORE. HE STILL COUGHED. TRIED TO SKIP THE STRAW. HE REFUSED. STATED " I DON'T CARE IF I COUGH OR BREATH IT." HOB UP. CARE ON GOING.
[2023-04-12 20:03] VITALS: BP 112/69
[2023-04-13 02:19] VITALS: BP 108/61
--- NOTE | 2023-04-13 04:50 | NUR ---
1900: ASSUMED CARE OF PT, BEDSIDE REPORT RECEIVED FROM ASHA CLANCY. PT IS SITTING UP IN BED, A/O X4. REPORTS DISCOMFORT, ASSISTED WITH REPOSTIONING, ORAL CARE, VSS, MEDICATIONS PROVIDED ORDERED. SNACK PROVIDED. PT TOLERATED WELL WITHOUT ISSUES SWALLOWING. POSSIBLE D/C TOMORROW. PT DISCUSSED THAT HE WILL BE GLAD TO GO HOME. SAFETY MEASURES TAKEN, ALL NEEDS ADDRESSED.
[2023-04-13] MEDS ORDERED: METO25 PO (10:30)
[2023-04-13] MEDS ORDERED: IPRAT-ALBUT 0.5-3 ML INH (10:30)
[2023-04-13 12:03] LABS: SARS-Cov-2 (COVID-19) PCR, MMC NEGATIVE (NEGATIVE)
--- NOTE | 2023-04-13 14:47 | NUR ---
DC BACK TO [facility] VIA GURNEY TRANSPORT. PIV DC'D WITH CATH TIP INTACT, NO REDNESS OR SWELLING NOTED. DC PKT GIVEN TO TRANSPORT PERSONNEL TO GIVE TO FACILITY STAFF AT [facility]. REPORT CALLED TO BRUCE MENDOZA RN.
== END 2023-04-13 14:30 | DRG 91 ==
LOC: ER 19:58 → MEDS 23:38
PROVIDERS: Family Medicine; Internal Medicine; Student in an Organized Health Care Education/Training Program; ADMIT Internal Medicine
PROC: 5A09457 Assistance with Respiratory Ventilation, 24-96 Consecutive Hours, Continuous Positive Airway Pressure (ICD-10-PCS; principal; 2023-04-10)
DX: G92.8 Other toxic encephalopathy (principal); J96.01 Acute respiratory failure with hypoxia; J96.02 Acute respiratory failure with hypercapnia; R53.2 Functional quadriplegia; J21.0 Acute bronchiolitis due to respiratory syncytial virus; Z66 Do not resuscitate; T50.915A Adverse effect of multiple unspecified drugs, medicaments and biological substances, initial encounter; T43.605A Adverse effect of unspecified psychostimulants, initial encounter; G35 Multiple sclerosis; R00.0 Tachycardia, unspecified; N31.9 Neuromuscular dysfunction of bladder, unspecified; D64.9 Anemia, unspecified; I95.9 Hypotension, unspecified; F03.90 Unspecified dementia, unspecified severity, without behavioral disturbance, psychotic disturbance, mood disturbance, and anxiety; F41.9 Anxiety disorder, unspecified; F32.9 Major depressive disorder, single episode, unspecified; K21.9 Gastro-esophageal reflux disease without esophagitis; M54.2 Cervicalgia; R51.9 Headache, unspecified; W06.XXXA Fall from bed, initial encounter; Z96.0 Presence of urogenital implants; Z86.718 Personal history of other venous thrombosis and embolism; Z87.440 Personal history of urinary (tract) infections; Z87.891 Personal history of nicotine dependence; Z11.52 Encounter for screening for COVID-19
CPT/HCPCS: 0241U; 36415; 70450; 71045; 72125; 80048; 80053; 81001; 82803; 83605; 83880; 84145; 85025; 87040; 87086; 92610; 93005; 93010; 94640; 94660; 94664; 94760; 94762; 96360; 96361; 99285-25; A9270; C9113; J0696; J1100; J1940; J3370; J7030; J7050; L0160; U0002

== ENCOUNTER 2023-09-01 13:51 | Emergency (ER) | payer MEDICARE, OTHER ==
[~2023-09-01] VITALS: Ht 198.1 cm; Wt 107.5 kg
[~2023-09-01 13:51] MED LIST changes: +B-COMPLEX1 EACH PO; +FOSFOMYCIN TROME3 G1 PO; +IPRAT-ALBUT 0.5-3 ML INH; +LIPOIC ACID PO; +METO25 PO; +Muri-Lube Minera2 ML BOTHEARS; +PREG75 PO; +VITAMIN D5000 UNIT PO
[2023-09-01 14:27] LABS: BASOPHILS ABSOLUTE AUTO 0.02 K/mm3 (0.00-0.23); BASOPHILS PERCENT AUTO 0 % (0-2); EOSINOPHILS ABSOLUTE AUTO 0.02 K/mm3 (0.00-0.68); EOSINOPHILS PERCENT AUTO 0 % (0-6); Hematocrit 44.4 % (37.0-53.0); Hemoglobin 13.6 g/dL (13.5-17.5); IMMATURE GRAN ABSOLUTE AUTO 0.05 K/mm3 (0.00-0.10); IMMATURE GRAN PERCENT AUTO 0 % (0-1); LYMPHOCYTES ABSOLUTE AUTO 0.96 K/mm3 (0.84-5.20); LYMPHOCYTES PERCENT AUTO 7 % (21-46); MONOCYTES ABSOLUTE AUTO 1.04 K/mm3 (0.16-1.47); MONOCYTES PERCENT AUTO 7 % (4-13); Mean Corpuscular HGB 27.5 pg (26.0-34.0); Mean Corpuscular HGB Conc 30.6 g/dL (31.5-36.5); Mean Corpuscular Volume 90 fL (80-100); Mean Platelet Volume 9.7 fL (9.1-12.4); NEUTROPHILS ABSOLUTE AUTO 11.91 K/mm3 (1.96-9.15); NEUTROPHILS PERCENT AUTO 85 % (41-73); Platelet Count 305 K/mm3 (150-400); RDW Coefficient Variation 16.2 % (11.7-14.2); RDW Standard Deviation 53.7 fL (35.1-46.3); Red Blood Cell Count 4.94 M/mm3 (4.30-5.90)
[2023-09-01 14:56] LABS: Albumin, Blood 2.9 g/dL (3.4-5.0); Albumin/Globulin Ratio 0.7 (0.8-1.8); Bilirubin, Total 0.3 mg/dL (0.1-1.0); Bun/Creatinine Ratio 25.3 (12.0-20.0); Calcium, Blood 9.2 mg/dL (8.5-10.1); Creatinine, Blood 0.95 mg/dL (0.60-1.20); Globulin, Blood 4.1 g/dL (2.2-4.0); Potassium, Blood 4.4 mmol/L (3.5-5.5)
[2023-09-01 18:18] LABS: Source, Urine Suprapubic Cath
[2023-09-01 18:26] LABS: Bilirubin, Urine Neg (Neg); Blood, Urine 5+ (Neg); Color, Urine Red (P-Yellow); Glucose Qualitative, Urine Neg (Neg); Ketones, Urine 2+ (Neg); Leukocyte Esterase, Urine Neg (Neg); Nitrite, Urine Neg (Neg); Protein, Urine 4+ (Neg); Specific Gravity, Urine 1.015 (1.003-1.022); Urobilinogen, Urine NORM (Normal); pH, Urine 6.5 (5.0-8.0)
[2023-09-01 18:34] LABS: Appearance, Urine Bloody (Clear); Red Blood Cells, Urine TNTC /hpf (0-2)
[2023-09-01 18:35] LABS: Bacteria Rare /hpf; Squamous Epithelial Cells Rare /hpf (Few); Yeast/Fungi Urine Rare /hpf
[2023-09-01 22:00] VITALS: BP 136/78
== END 2023-09-01 22:15 | disposition home or self-care (01) ==
LOC: ER 13:51
PROVIDERS: Emergency Medicine
DX: R31.0 Gross hematuria (principal); K91.840 Postprocedural hemorrhage of a digestive system organ or structure following a digestive system procedure; Z88.2 Allergy status to sulfonamides; Z88.8 Allergy status to other drugs, medicaments and biological substances; Z88.5 Allergy status to narcotic agent; Z88.6 Allergy status to analgesic agent; Z91.02 Food additives allergy status; Z79.899 Other long term (current) drug therapy; I48.91 Unspecified atrial fibrillation; F03.90 Unspecified dementia, unspecified severity, without behavioral disturbance, psychotic disturbance, mood disturbance, and anxiety; K21.9 Gastro-esophageal reflux disease without esophagitis
CPT/HCPCS: 12001; 74177; 76770; 80053; 81001; 85025; 86850; 86900; 86901; 99284-25; Q9967

== ENCOUNTER 2023-09-02 21:28 | Emergency (ER) | payer MEDICARE, OTHER ==
[~2023-09-02] VITALS: Ht 198.1 cm; Wt 107.5 kg
[2023-09-02 22:48] LABS: BASOPHILS ABSOLUTE AUTO 0.07 K/mm3 (0.00-0.23); BASOPHILS PERCENT AUTO 1 % (0-2); EOSINOPHILS ABSOLUTE AUTO 0.47 K/mm3 (0.00-0.68); EOSINOPHILS PERCENT AUTO 4 % (0-6); Hematocrit 44.5 % (37.0-53.0); Hemoglobin 13.7 g/dL (13.5-17.5); IMMATURE GRAN ABSOLUTE AUTO 0.05 K/mm3 (0.00-0.10); IMMATURE GRAN PERCENT AUTO 0 % (0-1); LYMPHOCYTES ABSOLUTE AUTO 1.46 K/mm3 (0.84-5.20); LYMPHOCYTES PERCENT AUTO 11 % (21-46); MONOCYTES ABSOLUTE AUTO 1.58 K/mm3 (0.16-1.47); MONOCYTES PERCENT AUTO 12 % (4-13); Mean Corpuscular HGB 27.8 pg (26.0-34.0); Mean Corpuscular HGB Conc 30.8 g/dL (31.5-36.5); Mean Corpuscular Volume 90 fL (80-100); Mean Platelet Volume 9.5 fL (9.1-12.4); NEUTROPHILS ABSOLUTE AUTO 9.93 K/mm3 (1.96-9.15); NEUTROPHILS PERCENT AUTO 73 % (41-73); Platelet Count 252 K/mm3 (150-400); RDW Coefficient Variation 16.6 % (11.7-14.2); RDW Standard Deviation 55.4 fL (35.1-46.3); Red Blood Cell Count 4.93 M/mm3 (4.30-5.90); White Blood Cell Count 13.56 K/mm3 (4.00-11.30)
[2023-09-02 23:04] LABS: Bun/Creatinine Ratio 26.2 (12.0-20.0); Calcium, Blood 9.4 mg/dL (8.5-10.1); Creatinine, Blood 0.92 mg/dL (0.60-1.20); Potassium, Blood 4.3 mmol/L (3.5-5.5)
[2023-09-02 23:30] VITALS: BP 90/68
== END 2023-09-03 00:08 | disposition home or self-care (01) ==
LOC: ER 21:28
PROVIDERS: Emergency Medicine
DX: R31.0 Gross hematuria (principal); Z96.0 Presence of urogenital implants; I48.91 Unspecified atrial fibrillation; K21.9 Gastro-esophageal reflux disease without esophagitis; Z88.2 Allergy status to sulfonamides; Z88.5 Allergy status to narcotic agent; Z88.6 Allergy status to analgesic agent; Z88.1 Allergy status to other antibiotic agents; Z79.899 Other long term (current) drug therapy
CPT/HCPCS: 51798; 80048; 85025; 99283-25

== ENCOUNTER 2023-10-19 00:42 | Inpatient (IN) | payer MEDICARE, OTHER ==
[~2023-10-19] VITALS: Ht 172.7 cm; Wt 78.6 kg
[2023-10-19 01:37] LABS: Source, Urine Clean Catch
[2023-10-19 01:39] LABS: Appearance, Urine Cloudy (Clear); Bilirubin, Urine Neg (Neg); Blood, Urine 2+ (Neg); Color, Urine Yellow (P-Yellow); Glucose Qualitative, Urine Neg (Neg); Ketones, Urine Neg (Neg); Leukocyte Esterase, Urine 3+ (Neg); Nitrite, Urine Pos (Neg); Protein, Urine 2+ (Neg); Specific Gravity, Urine 1.015 (1.003-1.022); Urobilinogen, Urine NORM (Normal)
[2023-10-19 02:13] LABS: Bacteria Many /hpf; Granular Casts 0-2 /lpf (0); Red Blood Cells, Urine 0-2 /hpf (0-2); Squamous Epithelial Cells Few /hpf (Few); White Blood Cells, Urine TNTC /hpf (0-5)
[2023-10-19 02:21] LABS: Influenza A, PCR NEGATIVE (NEGATIVE); Influenza B, PCR NEGATIVE (NEGATIVE); Resp Syncytial Virus, PCR NEGATIVE (NEGATIVE); SARS-Cov-2 (COVID-19) PCR, MMC NEGATIVE (NEGATIVE)
[2023-10-19] MEDS ORDERED: Ipratropium/Albuterol SulF 2.5-0.5MG/3 ML Amp INH ONE (02:25)
[2023-10-19] MEDS ORDERED: Cefepime HCl 2,000 MG in NS 100 ML IV ONE (02:25)
[2023-10-19 02:45] LABS: BASOPHILS ABSOLUTE AUTO 0.09 K/mm3 (0.00-0.23); BASOPHILS PERCENT AUTO 0 % (0-2); EOSINOPHILS ABSOLUTE AUTO 0.22 K/mm3 (0.00-0.68); EOSINOPHILS PERCENT AUTO 1 % (0-6); Hemoglobin 17.7 g/dL (13.5-17.5); IMMATURE GRAN PERCENT AUTO 0 % (0-1); LYMPHOCYTES ABSOLUTE AUTO 1.36 K/mm3 (0.84-5.20); LYMPHOCYTES PERCENT AUTO 6 % (21-46); MONOCYTES ABSOLUTE AUTO 1.54 K/mm3 (0.16-1.47); MONOCYTES PERCENT AUTO 7 % (4-13); Mean Corpuscular HGB 27.8 pg (26.0-34.0); Mean Corpuscular HGB Conc 30.4 g/dL (31.5-36.5); Mean Corpuscular Volume 92 fL (80-100); Mean Platelet Volume 10.5 fL (9.1-12.4); NEUTROPHILS ABSOLUTE AUTO 20.16 K/mm3 (1.96-9.15); NEUTROPHILS PERCENT AUTO 86 % (41-73); Platelet Count 411 K/mm3 (150-400); RDW Standard Deviation 53.9 fL (35.1-46.3); Red Blood Cell Count 6.36 M/mm3 (4.30-5.90); White Blood Cell Count 23.47 K/mm3 (4.00-11.30)
[2023-10-19] MEDS ORDERED: Vancomycin HCL 2,000 MG in NS 500 ML IV ONE (02:45)
[2023-10-19 02:48] LABS: Hematocrit 58.3 % (37.0-53.0)
[2023-10-19] MEDS ORDERED: Ondansetron HCl 2 MG / ML 2ML Vial IV PRN (03:20)
[2023-10-19] MEDS ORDERED: Acetaminophen 325 MG TABLET PO PRN (03:25)
[2023-10-19] MEDS ORDERED: Lidocaine 2% Jelly Uro-Jet UR ONE (03:35)
[2023-10-19] MEDS ORDERED: FentaNYL Citrate 50 MCG/ML 2 ML Injection IV ONE (03:35)
[2023-10-19 03:56] LABS: Albumin, Blood 2.6 g/dL (3.4-5.0); Albumin/Globulin Ratio 0.6 (0.8-1.8); Bilirubin, Total 0.4 mg/dL (0.1-1.0); Bun/Creatinine Ratio 23.4 (12.0-20.0); Calcium, Blood 8.3 mg/dL (8.5-10.1); Creatinine, Blood 0.86 mg/dL (0.60-1.20); Globulin, Blood 4.1 g/dL (2.2-4.0); Total Protein, Blood 6.7 g/dL (6.4-8.2)
[2023-10-19] MEDS ORDERED: NS 1,000 ML IV SCH (04:00)
[2023-10-19] MEDS ORDERED: FOSFOMYCIN TROME3 G1 PO (04:10)
[2023-10-19] MEDS ORDERED: PREG100 PO (04:13)
[2023-10-19] MEDS ORDERED: NS 1,000 ML IV ONE (04:42)
[2023-10-19 04:44] LABS: BASOPHILS ABSOLUTE AUTO 0.05 K/mm3 (0.00-0.23); BASOPHILS PERCENT AUTO 0 % (0-2); EOSINOPHILS ABSOLUTE AUTO 0.05 K/mm3 (0.00-0.68); EOSINOPHILS PERCENT AUTO 0 % (0-6); Hematocrit 51.4 % (37.0-53.0); Hemoglobin 15.7 g/dL (13.5-17.5); IMMATURE GRAN PERCENT AUTO 0 % (0-1); LYMPHOCYTES PERCENT AUTO 4 % (21-46); MONOCYTES ABSOLUTE AUTO 1.44 K/mm3 (0.16-1.47); MONOCYTES PERCENT AUTO 7 % (4-13); Mean Corpuscular HGB 27.9 pg (26.0-34.0); Mean Corpuscular HGB Conc 30.5 g/dL (31.5-36.5); Mean Corpuscular Volume 92 fL (80-100); NEUTROPHILS ABSOLUTE AUTO 19.83 K/mm3 (1.96-9.15); NEUTROPHILS PERCENT AUTO 89 % (41-73); Platelet Count 331 K/mm3 (150-400); RDW Coefficient Variation 15.8 % (11.7-14.2); Red Blood Cell Count 5.62 M/mm3 (4.30-5.90); White Blood Cell Count 22.27 K/mm3 (4.00-11.30)
[2023-10-19 05:02] LABS: Albumin/Globulin Ratio 0.6 (0.8-1.8); Bilirubin, Total 0.5 mg/dL (0.1-1.0); Bun/Creatinine Ratio 23.1 (12.0-20.0); Calcium, Blood 9.8 mg/dL (8.5-10.1); Creatinine, Blood 0.99 mg/dL (0.60-1.20); Globulin, Blood 4.8 g/dL (2.2-4.0); Potassium, Blood 4.4 mmol/L (3.5-5.5); Total Protein, Blood 7.8 g/dL (6.4-8.2)
[2023-10-19] MEDS ORDERED: ClonazePAM 1 MG Tab PO PRN (05:15)
[2023-10-19 05:32] VITALS: BP 96/77
[2023-10-19 07:06] VITALS: BP 89/79
[2023-10-19] MEDS ORDERED: Lactated Ringer's 500 ML IV STA (07:45)
--- NOTE | 2023-10-19 07:46 | NUR ---
TELEPHONE ORDER PATIENT WITH BP OF 89/79 THIS AM, NOTIFIED AND NEW ORDER RECIEVED FOR 500ML BOLUS OF LACTATED RINGERS. WILL ADMINISTER AND CONTINUE TO MONITOR PATIENT.
[2023-10-19] MEDS ORDERED: Meropenem 1,000 MG in NS 100 ML IV SCH (08:00)
[2023-10-19 08:34] VITALS: BP 96/72
[2023-10-19 08:52] VITALS: BP 107/75
[2023-10-19] MEDS ORDERED: Apixaban 5 MG Tab PO SCH (09:00)
[2023-10-19] MEDS ORDERED: Enoxaparin 40 MG/0.4 ML SYR SC SCH (09:00)
[2023-10-19] MEDS ORDERED: DULoxetine HCL 30 MG Cap DR PO SCH (09:00)
[2023-10-19] MEDS ORDERED: Metoprolol Tartrate 25 MG Tab PO SCH (09:00)
[2023-10-19] MEDS ORDERED: Midodrine 2.5 MG Tab PO SCH (09:00)
[2023-10-19] MEDS ORDERED: Multivitamins 1 Tab PO SCH (09:00)
[2023-10-19] MEDS ORDERED: Pregabalin 50 MG Capsule PO SCH (09:00)
[2023-10-19] MEDS ORDERED: Mupirocin 2% Ointment 22 GM TOP SCH (09:00)
[2023-10-19 14:53] VITALS: BP 102/77
[2023-10-19] MEDS ORDERED: Vancomycin HCL 1,000 MG in NS 250 ML IV SCH (18:00)
--- NOTE | 2023-10-19 19:17 | NUR ---
SHIFT SUMMARY PATIENT ALERT, UNABLE TO ASSESS PATIENT'S ORIENTATION THIS SHIFT DUE TO PATIENT'S REFUSAL. PATIENT WITH MUMBLED, SOFT VOICE, AND STATES WILL NOT ANSWER ANY QUESTIONS UNTIL HE GETS SOMETHING TO DRINK. MD NOTIFIED OF PATIENT REQUEST FOR DIET ORDER AND SPEECH EVALUATION ORDERED TODAY, BUT PATIENT NOT ASSESSED YET TODAY. PLAN FOR SPEECH EVALUATION TOMORROW. FLUIDS INFUSING PER MAR. PATIENT HYPOTENSIVE THIS AM, MD NOTIFIED AND BOLUS INFUSED PER MAY. PATIENT WITH SUPPLEMENTAL OXYGEN AT 4L VIA NASAL CANNULA, INCREASED TO 5L NASAL CANNULA DUE TO LOW SPO2. PATIENT WITH WEAK MOIST COUGH, UNABLE TO CLEAR SECRETIONS, ORAL SUCTION AT BEDSIDE, INEFFECTIVE. RESPIRATORY THERAPY CALLED THIS EVENING AND ASSESSED PATIENT. DRESSING TO SACRAL WOUND CHANGED THIS EVENING. PATIENT WITH SUPRAPUBIC CATHETER AND OSTOMY, BOTH DRAINING PROPERLY. ALL PO MEDS HELD THIS AM DUE TO ASPIRATION RISK UNTIL SEEN BY SPEECH THERAPY. MD AWARE. TELEMETRY IN PLACE, RUNNING SINUS TACH, NO EVENTS NOTED TODAY. PATIENT REPOSITIONED Q2 HOURS. NO OTHER CONCERNS AT THIS TIME.
[2023-10-19 20:05] VITALS: BP 101/76
[2023-10-19] MEDS ORDERED: Cholecalciferol 1000 Unit Tablet (=25MCG) PO SCH (21:00)
[2023-10-19] MEDS ORDERED: Naltrexone HCl 50 MG Tab PO SCH (21:00)
[2023-10-19] MEDS ORDERED: Lactobacil 2-S.Thermo-Bifido 1 1 Cap PO SCH (21:00)
[2023-10-19] MEDS ORDERED: Enoxaparin 40 MG/0.4 ML SYR SC ONE (21:05)
--- NOTE | 2023-10-19 21:05 | NUR ---
PT IS NPO FOR ASPIRATION RISK, HX AFIB, CURRENTLY 116 ON TELE. PT DID NOT RECIEVE MORING DOSE OF ELIQUIS AND WILL NOT RECIEVE BEDTIME DOSE DUE TO RISK OF ASPIRATION. SCD WERE ORDERED. THIS RN WENT TO PLACE SCD ON, WHEN PT STATED THAT HE FEELS LIKE HE HAS A BLOOD CLOT IN L THIGH, NO SWELLING NOTED. PER PT, HE HAS A HISTORY OF BLOOD CLOTS. CHARLIE HURTADO NOTIFIED, PER BRYANT, GIVE LOVENOX 40 MG SC ONCE AND LET NEXT SHIFT KNOW THE SITUATION AND DECIDE IF DUPLEX IS NECESSARY.
[2023-10-20 04:08] VITALS: BP 118/84
[2023-10-20 05:32] LABS: BASOPHILS ABSOLUTE AUTO 0.09 K/mm3 (0.00-0.23); BASOPHILS PERCENT AUTO 1 % (0-2); EOSINOPHILS ABSOLUTE AUTO 0.42 K/mm3 (0.00-0.68); EOSINOPHILS PERCENT AUTO 4 % (0-6); Hematocrit 46.4 % (37.0-53.0); Hemoglobin 14.4 g/dL (13.5-17.5); IMMATURE GRAN ABSOLUTE AUTO 0.05 K/mm3 (0.00-0.10); IMMATURE GRAN PERCENT AUTO 0 % (0-1); LYMPHOCYTES ABSOLUTE AUTO 0.84 K/mm3 (0.84-5.20); LYMPHOCYTES PERCENT AUTO 7 % (21-46); MONOCYTES PERCENT AUTO 8 % (4-13); Mean Corpuscular HGB 27.8 pg (26.0-34.0); Mean Corpuscular Volume 90 fL (80-100); Mean Platelet Volume 10.3 fL (9.1-12.4); NEUTROPHILS ABSOLUTE AUTO 9.52 K/mm3 (1.96-9.15); NEUTROPHILS PERCENT AUTO 80 % (41-73); Platelet Count 283 K/mm3 (150-400); RDW Standard Deviation 52.3 fL (35.1-46.3); Red Blood Cell Count 5.18 M/mm3 (4.30-5.90); White Blood Cell Count 11.92 K/mm3 (4.00-11.30)
--- NOTE | 2023-10-20 05:34 | NUR ---
PT IS ALERT AND ORIENTED X4, MUMBLED SLOW RESPONSES. ABLE TO EXPRESS NEEDS, TOUCH PAD IN REACH. PT REPOSITIONED Q 2HRS. IV FLUIDS AND ANTIBIOTICS CONTINUED. PT DENIES CHEST PAIN AND PRESSURE. C/O BACK PAIN, PT IS NPO PENDING SWALLOW EVAL TODAY. LUNG SOUNDS ARE MOIST THROUGHOUT. WEAK, PRODUCTIVE COUGH REQUIRING FREQUENT SUCTION. PT IS UNABLE TO CLEAR SECRETIONS. LIMITED USE OF RUE, ALL OTHER EXTREMETIES PARALIZED. CLEARY CARE AND OSTOMY CARE PROVIDED.
[2023-10-20 05:53] LABS: Bun/Creatinine Ratio 23.6 (12.0-20.0); Calcium, Blood 9.1 mg/dL (8.5-10.1); Creatinine, Blood 0.97 mg/dL (0.60-1.20); Potassium, Blood 3.7 mmol/L (3.5-5.5)
[2023-10-20 07:15] VITALS: BP 104/82
[2023-10-20] MEDS ORDERED: Nystatin 100,000 Unit/ML Susp 5 ML UDC MT SCH (13:00)
[2023-10-20 15:18] VITALS: BP 99/72
[2023-10-20 17:42] VITALS: BP 97/77
--- NOTE | 2023-10-20 17:46 | NUR ---
PT PLEASANT TODAY. ABX ORDERED. IS ON MAINTENANCE FLUIDS. ROSE APPROVED PUREE DIET. NECTAR THICK FLUIDS BY SPOON, RX WHOLE IN PUDDING. DR ALSO STARTED NYSTATIN S/S. NO OTHER NEW COMPLAINTS NOTED. BED IN LOW POSITION, CALL LITE IN REACH, CALLS APPROP WITH TOUCH PAD
[2023-10-20 19:58] VITALS: BP 101/80
--- NOTE | 2023-10-21 04:44 | NUR ---
PATIENT WAS GIVEN FREQUENT SIPS OF THICKENED WATER AND JUICE. REMAINED IN CONTACTE ISLOATION FOR ESBL IN URINE. ILEOSTOMY CD&I. TELE SR 81.SP CATH CLEANED AND NEW DRESSING PLACED. REFUSED NYSTATIN, SAYS HE WILL TAKE THE MORNING DOSE.
[2023-10-21 05:05] VITALS: BP 93/62
[2023-10-21 07:11] VITALS: BP 90/58
[2023-10-21 10:57] LABS: BASOPHILS ABSOLUTE AUTO 0.05 K/mm3 (0.00-0.23); BASOPHILS PERCENT AUTO 0 % (0-2); EOSINOPHILS ABSOLUTE AUTO 0.79 K/mm3 (0.00-0.68); EOSINOPHILS PERCENT AUTO 7 % (0-6); Hematocrit 42.9 % (37.0-53.0); Hemoglobin 12.7 g/dL (13.5-17.5); IMMATURE GRAN ABSOLUTE AUTO 0.03 K/mm3 (0.00-0.10); IMMATURE GRAN PERCENT AUTO 0 % (0-1); LYMPHOCYTES ABSOLUTE AUTO 0.79 K/mm3 (0.84-5.20); LYMPHOCYTES PERCENT AUTO 7 % (21-46); MONOCYTES ABSOLUTE AUTO 1.21 K/mm3 (0.16-1.47); MONOCYTES PERCENT AUTO 11 % (4-13); Mean Corpuscular HGB 27.7 pg (26.0-34.0); Mean Corpuscular HGB Conc 29.6 g/dL (31.5-36.5); Mean Corpuscular Volume 94 fL (80-100); Mean Platelet Volume 10.1 fL (9.1-12.4); NEUTROPHILS ABSOLUTE AUTO 8.56 K/mm3 (1.96-9.15); NEUTROPHILS PERCENT AUTO 75 % (41-73); Platelet Count 269 K/mm3 (150-400); RDW Coefficient Variation 16.2 % (11.7-14.2); RDW Standard Deviation 55.9 fL (35.1-46.3); Red Blood Cell Count 4.59 M/mm3 (4.30-5.90); White Blood Cell Count 11.43 K/mm3 (4.00-11.30)
[2023-10-21 11:15] LABS: Bun/Creatinine Ratio 18.9 (12.0-20.0); Calcium, Blood 8.5 mg/dL (8.5-10.1); Creatinine, Blood 1.11 mg/dL (0.60-1.20); Potassium, Blood 3.5 mmol/L (3.5-5.5)
[2023-10-21] MEDS ORDERED: Midodrine 5 MG Tab PO SCH (14:00)
[2023-10-21] MEDS ORDERED: Silver Sulfadiazine 1% Cream 25 APPLIC/25 GM Tube TOP SCH (14:00)
[2023-10-21 15:38] VITALS: BP 100/70
--- NOTE | 2023-10-21 18:38 | NUR ---
PT PLEASANT TODAY. DRESSING CHANGE ODRDERED. B/P UP BETTER THIS ASHLI AFTER INCREASED MIDODRINE. 100/70. IVF SHUT OFF TODAY. SOME EDEMA IN BUE NOTED. TRIALED THE NEW SULVADINE ON KNEE. PT JAVIER WELL. DRESSING WITH SULVADINE PLACED FOR PT. NO REACTIONS NOTED. BED IN LOW POSITION, CALL LITE IN REACH, CALLS APPROP.
[2023-10-21 20:03] VITALS: BP 99/68
[2023-10-21] MEDS ORDERED: Silver Sulfadiazine 1% Cream 400 gm TOP SCH (21:00)
--- NOTE | 2023-10-22 04:25 | NUR ---
SHIFT SUMMARY PATIENT REMAINS IN CONTACT ISOLATION. GIVEN PRN DOSE OF TYLENOL FOR GENERAL DISCOMFORTS. BILATERAL LEG GAUZE DRESSING, CD&I.
[2023-10-22 06:06] LABS: BASOPHILS ABSOLUTE AUTO 0.07 K/mm3 (0.00-0.23); BASOPHILS PERCENT AUTO 1 % (0-2); EOSINOPHILS ABSOLUTE AUTO 0.82 K/mm3 (0.00-0.68); EOSINOPHILS PERCENT AUTO 10 % (0-6); Hemoglobin 13.3 g/dL (13.5-17.5); IMMATURE GRAN ABSOLUTE AUTO 0.03 K/mm3 (0.00-0.10); IMMATURE GRAN PERCENT AUTO 0 % (0-1); LYMPHOCYTES ABSOLUTE AUTO 1.22 K/mm3 (0.84-5.20); LYMPHOCYTES PERCENT AUTO 15 % (21-46); MONOCYTES ABSOLUTE AUTO 1.01 K/mm3 (0.16-1.47); MONOCYTES PERCENT AUTO 12 % (4-13); Mean Corpuscular HGB 27.8 pg (26.0-34.0); Mean Corpuscular HGB Conc 29.6 g/dL (31.5-36.5); Mean Corpuscular Volume 94 fL (80-100); Mean Platelet Volume 9.7 fL (9.1-12.4); NEUTROPHILS ABSOLUTE AUTO 5.04 K/mm3 (1.96-9.15); NEUTROPHILS PERCENT AUTO 62 % (41-73); Platelet Count 271 K/mm3 (150-400); RDW Coefficient Variation 16.1 % (11.7-14.2); RDW Standard Deviation 55.9 fL (35.1-46.3); Red Blood Cell Count 4.79 M/mm3 (4.30-5.90); White Blood Cell Count 8.19 K/mm3 (4.00-11.30)
[2023-10-22 07:10] LABS: Bun/Creatinine Ratio 16.4 (12.0-20.0); Creatinine, Blood 1.22 mg/dL (0.60-1.20); Potassium, Blood 3.6 mmol/L (3.5-5.5)
[2023-10-22] MEDS ORDERED: Dextrose 5% 1,000 ML IV ONE (07:35)
[2023-10-22 07:38] VITALS: BP 109/70
[2023-10-22] MEDS ORDERED: Metoprolol Succinate 25 MG TABCR PO SCH (09:00)
[2023-10-22] MEDS ORDERED: Peg 400/Hypromellose/Glycerin 15 DROP/ML BTL BOTHEYES PRN (09:10)
[2023-10-22 13:15] VITALS: BP 99/73
[2023-10-22] MEDS ORDERED: NS 1,000 ML IV SCH (13:45)
[2023-10-22 15:36] VITALS: BP 110/74
--- NOTE | 2023-10-22 18:06 | NUR ---
PATIENT A/OX3, MUMBLED SPEECH MAKES IT DIFFICULT TO UNDERSTAND. SOFT TOUCH CALL LIGHT IN USE AND PATIENT USES APPROPRIATELY. SEEN BY SPEECH THERAPY TODAY AND PATIENT IS NOW STRICT NPO. IV FLUIDS RUNNING. 20G IV TO R HAND WNL. DRESSINGS TO SACAL WOUND CHANGED TODAY, PICS TAKEN AND PLACED ON CHART. SUNBURN TO BLE IMPROVING, SILVADENE APPLIED AND LEFT OPEN TO AIR. S/P WNL AND DRAINING CLEAR YELLOW URINE. ILEOSTOMY WITH SOFT BROWN OUTPUT. 5LO2 TO MAINTAING SATS >90%. ELIQUIS D/C'D AND PATIENT NOW ON LOVENOX FOR DVT PROPHYLAXIS. NO OTHER CHANGES THIS SHIFT. PATIENT TURNED Q2 HOURS THIS SHIFT.
[2023-10-22 19:46] VITALS: BP 113/71
[2023-10-22] MEDS ORDERED: Enoxaparin 40 MG/0.4 ML SYR SC SCH (21:00)
[2023-10-23 02:50] VITALS: BP 118/76
[2023-10-23 05:02] LABS: BASOPHILS ABSOLUTE AUTO 0.04 K/mm3 (0.00-0.23); BASOPHILS PERCENT AUTO 1 % (0-2); EOSINOPHILS ABSOLUTE AUTO 0.74 K/mm3 (0.00-0.68); EOSINOPHILS PERCENT AUTO 9 % (0-6); Hematocrit 42.2 % (37.0-53.0); IMMATURE GRAN ABSOLUTE AUTO 0.02 K/mm3 (0.00-0.10); IMMATURE GRAN PERCENT AUTO 0 % (0-1); LYMPHOCYTES ABSOLUTE AUTO 0.78 K/mm3 (0.84-5.20); LYMPHOCYTES PERCENT AUTO 10 % (21-46); MONOCYTES PERCENT AUTO 10 % (4-13); Mean Corpuscular HGB Conc 30.8 g/dL (31.5-36.5); Mean Corpuscular Volume 91 fL (80-100); NEUTROPHILS ABSOLUTE AUTO 5.81 K/mm3 (1.96-9.15); NEUTROPHILS PERCENT AUTO 71 % (41-73); RDW Coefficient Variation 15.9 % (11.7-14.2); RDW Standard Deviation 52.7 fL (35.1-46.3); Red Blood Cell Count 4.65 M/mm3 (4.30-5.90); White Blood Cell Count 8.19 K/mm3 (4.00-11.30)
[2023-10-23 05:08] LABS: Mean Platelet Volume 10.3 fL (9.1-12.4); Platelet Count 204 K/mm3 (150-400)
--- NOTE | 2023-10-23 05:29 | NUR ---
SHIFT SUMMARY PATIENT IS ALERT AND ORIENTATED TIMES 4. PATIENT IS CURRENTLY ON 5 L O2 AND TOLERATING WELL. PATIENT HAS HISTORY OF UTI'S, SUB PUEBIC CATH. RAILS TIMES 2, CALL LIGHT WITHIN REACH. PATIENT SPEAKS SOFTLY AND WAS NPO DURING SHIFT.
[2023-10-23 05:31] LABS: Bun/Creatinine Ratio 17.8 (12.0-20.0); Calcium, Blood 8.6 mg/dL (8.5-10.1); Creatinine, Blood 1.07 mg/dL (0.60-1.20); Potassium, Blood 3.7 mmol/L (3.5-5.5)
[2023-10-23] MEDS ORDERED: Dextrose 5% 1,000 ML IV ONE ×2 (06:15→07:00)
[2023-10-23 07:29] VITALS: BP 123/77
[2023-10-23 07:31] VITALS: BP 123/77
[2023-10-23 13:41] VITALS: BP 133/82
[2023-10-23 14:51] VITALS: BP 107/75
[2023-10-23 18:00] LABS: Bun/Creatinine Ratio 17.4 (12.0-20.0); Calcium, Blood 8.7 mg/dL (8.5-10.1); Creatinine, Blood 1.09 mg/dL (0.60-1.20); Potassium, Blood 3.5 mmol/L (3.5-5.5)
--- NOTE | 2023-10-23 18:24 | NUR ---
SHIFT SUMMARY PT IS A/OX3. SPEECH IS MUMBLED AND DIFFICULT TO UNDERSTAND. PT SEEN BY SPEECH THERAPY TODAY AND WAS TAKEN OFF NPO TO A PUREED DIET. DEXTROSE RUNNING @ 125. ILEOSTOMY WNL WITH SOFT BROWN OUTPUT. O2 WAS DECREASED THROUGHOUT THE SHIFT FROM 5L TO 2L MAINTAINING O2 SATS >95%. THIS AFTERNOON A BARIUM SWALLOW WAS COMPLETED. CLEARY DRAINING CLEAR YELLOW URINE. SOFT TOUCH CALL LIGHT IN PLACE AND THE PT IS ABLE TO USE IT APPROPRIATELY.
[2023-10-23 20:52] VITALS: BP 108/68
[2023-10-23] MEDS ORDERED: Apixaban 5 MG Tab PO SCH (21:00)
[2023-10-23] MEDS ORDERED: NS 250 ML IV PRN (23:30)
[2023-10-24 03:38] VITALS: BP 118/80
--- NOTE | 2023-10-24 04:49 | NUR ---
SHIFT SUMMARY NOC PT A/O X 4. PLEASANT AND COOPERATIVE WITH CARE. VSS. ILEOSTOMY CLIP BROKE DURING SHIFT AND WAS REPLACED, BAG IS STILL C/D/I. SUPRAPUBIC CATHETER IN PLACE DRAINING TO GRAVITY, INSERTION SITE IS RED AND SLIGHT BLEEDING NOTED. PT STILL ON O2 2L/NC SPO2 >92%. MEPILEX IN PLACE ON COCCYX C/D/I. PT CURRENTLY RESTING WITH BED IN LOWEST POSITION, AND CALL LIGHT WITHIN REACH.
[2023-10-24 07:57] VITALS: BP 117/80
[2023-10-24] MEDS ORDERED: NS 100 ML IV ONE ×2 (08:45→15:07)
[2023-10-24] MEDS ORDERED: Carbamide Peroxide Otic Soln BOTHEARS SCH ×2 (10:00→21:00)
[2023-10-24] MEDS ORDERED: MEROPENEM114 IV (11:54)
[2023-10-24] MEDS ORDERED: SILVADENE20 G1 TOP (11:56)
[2023-10-24] MEDS ORDERED: VISBIOME 112.51 EACH PO (11:57)
[2023-10-24 14:34] VITALS: BP 112/76
--- NOTE | 2023-10-24 15:09 | NUR ---
GOALS OF CARE VISIT IVY WAS LYING SPINE AT 45 DEGREES WITH EYES CLOSED. NO S/SX OF DISTRESS NOTED. HE IS A/OX4. SLOW TO RESPOND TO QUESTIONS. HOWEVER, HE SPEAKS INTELLIGBLY AND ANSWERS QUESTIONS APPROPRIATLY. THERAPUTIC LISTENING PROVIDED LEADING TO A SHORT LIFE REVIEW WITH IVY. HE REPORTS BEING DIAGNOSED WITH MS AT AGE 52, "IT CAN HAPPEN AT ANY AGE". HE WAS A WEAVER DOBBY LOOM PRIOR TO MS DX. AFTER COLLABORATING WITH SPEECH THERAPIST AND REVIEWING HIS CURRENT SWALLOW STUDY, THIS PC RN ATTEMPTED GOALS OF CARE CONVERSATION WITH IVY. REVIEWED PEG TUBES AND BENEFIT. IVY VERBALIZED THE IMPORTANCE OF EATING AND DRINKING THINGS THAT TASTE GOOD. HE STATED, "I ALREADY HAVE TWO THINGS HANGING OUT OF ME. I DON'T WANT TO ADD ONE MORE." THIS PC RN VALIDATED PT'S FEELINGS. RECOMMEND PT HAVE FOLLOW UP CARE WITH SPEECH THERAPY OUT PT TO LEARN NEW SKILLS HIS MS IS PROGRESSING. REPORT PROVIDED TO [facility]
== END 2023-10-24 19:50 | DRG 698 ==
LOC: ER 00:42 → MEDS 03:20
PROVIDERS: Emergency Medicine; Family Medicine Adult Medicine; ADMIT Student in an Organized Health Care Education/Training Program
DX: T83.511A Infection and inflammatory reaction due to indwelling urethral catheter, initial encounter (principal); A41.9 Sepsis, unspecified organism; G92.8 Other toxic encephalopathy; R53.2 Functional quadriplegia; J18.9 Pneumonia, unspecified organism; Z66 Do not resuscitate; R65.20 Severe sepsis without septic shock; E87.0 Hyperosmolality and hypernatremia; D84.821 Immunodeficiency due to drugs; B37.0 Candidal stomatitis; I48.20 Chronic atrial fibrillation, unspecified; N39.0 Urinary tract infection, site not specified; G35 Multiple sclerosis; I95.9 Hypotension, unspecified; L55.0 Sunburn of first degree; F41.9 Anxiety disorder, unspecified; F32.A Depression, unspecified; K21.9 Gastro-esophageal reflux disease without esophagitis; N31.9 Neuromuscular dysfunction of bladder, unspecified; D63.8 Anemia in other chronic diseases classified elsewhere; F03.90 Unspecified dementia, unspecified severity, without behavioral disturbance, psychotic disturbance, mood disturbance, and anxiety; Y84.6 Urinary catheterization as the cause of abnormal reaction of the patient, or of later complication, without mention of misadventure at the time of the procedure; E86.0 Dehydration; Z88.2 Allergy status to sulfonamides; Z88.5 Allergy status to narcotic agent; Z88.8 Allergy status to other drugs, medicaments and biological substances; Z88.1 Allergy status to other antibiotic agents; Z79.899 Other long term (current) drug therapy; Z79.2 Long term (current) use of antibiotics; Z79.51 Long term (current) use of inhaled steroids; Z79.01 Long term (current) use of anticoagulants; Z86.718 Personal history of other venous thrombosis and embolism; Z87.442 Personal history of urinary calculi; Z98.890 Other specified postprocedural states; Z93.2 Ileostomy status
CPT/HCPCS: 0241U; 36415; 51705; 71045; 74230; 80048; 80053; 81001; 82550; 82947; 83605; 85025; 87040; 87077; 87086; 87186; 92526; 92610; 92611; 93005; 93010; 94640; 94664; 94760; 99285-25; A9270; C1751; C2627; J0692; J1650; J2185; J2405; J3010; J3370; J7030; J7040; J7050; J7070; J7120

== ENCOUNTER 2023-12-21 02:37 | Inpatient (IN) | payer MEDICARE, OTHER ==
[~2023-12-21] VITALS: Ht 180.3 cm; Wt 96.7 kg
[2023-12-21] VITALS (24 sets, daily range): BP systolic 81–121; BP diastolic 55–102
[~2023-12-21 02:37] MED LIST changes: +MEROPENEM114 IV; +MUPIROCIN1 G1 TOP; -MUPIROCIN22 G9 TOP; +PREG100 PO; +SILVADENE20 G1 TOP
[2023-12-21 03:40] LABS: BASOPHILS ABSOLUTE AUTO 0.16 K/mm3 (0.00-0.23); BASOPHILS PERCENT AUTO 1 % (0-2); EOSINOPHILS ABSOLUTE AUTO 0.19 K/mm3 (0.00-0.68); EOSINOPHILS PERCENT AUTO 1 % (0-6); Hemoglobin 20.2 g/dL (13.5-17.5); IMMATURE GRAN ABSOLUTE AUTO 0.14 K/mm3 (0.00-0.10); IMMATURE GRAN PERCENT AUTO 1 % (0-1); LYMPHOCYTES ABSOLUTE AUTO 1.86 K/mm3 (0.84-5.20); LYMPHOCYTES PERCENT AUTO 7 % (21-46); MONOCYTES PERCENT AUTO 6 % (4-13); Mean Corpuscular HGB 27.7 pg (26.0-34.0); Mean Corpuscular HGB Conc 30.2 g/dL (31.5-36.5); Mean Corpuscular Volume 92 fL (80-100); Mean Platelet Volume 11.2 fL (9.1-12.4); NEUTROPHILS ABSOLUTE AUTO 23.54 K/mm3 (1.96-9.15); NEUTROPHILS PERCENT AUTO 86 % (41-73); Platelet Count 451 K/mm3 (150-400); RDW Standard Deviation 53.7 fL (35.1-46.3); White Blood Cell Count 27.49 K/mm3 (4.00-11.30)
[2023-12-21 03:41] LABS: Bicarbonate Venous 16.1 mmol/L (24.0-30.0)
[2023-12-21 03:42] LABS: PCO2 Venous 48.2 mmHg (38-42)
[2023-12-21 03:43] LABS: pH Blood Venous 7.17 (7.34-7.37)
[2023-12-21] MEDS ORDERED: NS 1,000 ML IV SCH ×3 (03:45→05:00)
[2023-12-21] MEDS ORDERED: Meropenem 1,000 MG in NS 100 ML IV ONE (03:50)
[2023-12-21 03:53] LABS: Hematocrit 66.8 % (37.0-53.0)
[2023-12-21 04:08] LABS: Magnesium, Blood 1.7 mg/dL (1.6-2.4); Thyroid Stimulating Hormone 0.578 uIU/mL (0.360-4.800)
[2023-12-21 04:28] LABS: Albumin, Blood 3.2 g/dL (3.4-5.0); Albumin/Globulin Ratio 0.5 (0.8-1.8); Bilirubin, Total 0.8 mg/dL (0.1-1.0); Bun/Creatinine Ratio 45.5 (12.0-20.0); Calcium, Blood 10.3 mg/dL (8.5-10.1); Creatinine, Blood 2.11 mg/dL (0.60-1.20); Globulin, Blood 6.4 g/dL (2.2-4.0); Phosphorus, Blood 6.7 mg/dL (2.5-4.9); Potassium, Blood 5.9 mmol/L (3.5-5.5); Total Protein, Blood 9.6 g/dL (6.4-8.2); Uric Acid, Blood 17.7 mg/dL (3.5-7.2)
[2023-12-21] MEDS ORDERED: FLU VACC TS2024-25(6MOS UP)/PF 45 MCG/0.5 ML SYRINGE IM SCH (04:35)
[2023-12-21 04:50] LABS: Source, Urine Clean Catch
[2023-12-21 04:55] LABS: Appearance, Urine Turbid (Clear); Bilirubin, Urine Neg (Neg); Blood, Urine 5+ (Neg); Color, Urine Yellow (P-Yellow); Glucose Qualitative, Urine Neg (Neg); Ketones, Urine Neg (Neg); Leukocyte Esterase, Urine 3+ (Neg); Nitrite, Urine Pos (Neg); Protein, Urine 3+ (Neg); Urobilinogen, Urine NORM (Normal)
[2023-12-21 05:39] LABS: Bacteria Many /hpf; Red Blood Cells, Urine 25-50 /hpf (0-2); Squamous Epithelial Cells Few /hpf (Few); White Blood Cells, Urine TNTC /hpf (0-5)
[2023-12-21] MEDS ORDERED: Sodium Bicarb 8.4% Inj 150 MEQ in Dextrose 5% 1,000 ML IV SCH ×2 (06:00→08:00)
[2023-12-21] MEDS ORDERED: Lactated Ringer's 1,000 ML IV SCH (06:00)
[2023-12-21] MEDS ORDERED: Lactobacil 2-S.Thermo-Bifido 1 1 Cap PO SCH (09:00)
[2023-12-21] MEDS ORDERED: Heparin Sodium,Porcine 5,000 UNIT/0.5 ML SDV SC SCH (09:00)
[2023-12-21 14:02] LABS: Bun/Creatinine Ratio 52.7 (12.0-20.0); Calcium, Blood 9.5 mg/dL (8.5-10.1); Creatinine, Blood 1.86 mg/dL (0.60-1.20)
--- NOTE | 2023-12-21 15:40 | NUR ---
REPORT RECIEVED FROM ED NURSE, [facility], AT 1530.
--- NOTE | 2023-12-21 16:54 | NUR ---
PT ARRIVED TO PCU VIA GURNEY AND ON 5L NC. PT SLID FROM GURNEY TO BED , 5 STAFF MEMBERS PRESENT. PT ALERT AT TIME OF ARRIVAL BUT MUMBLING. PT ABLE TO NOD HEAD YES/NO TO ANSWER WUESTIONS APPROPIATELY BUT PT IN UNABLE TO FORM COHERENT WORDS. PT ABLE TO FORM PARTIAL WORDS TO INDICATE HIS NEEDS. THIS RN ATTEMPTING TO INTERPRET PT'S MUMBLING, PT ABLE T NOD YES/NO. PT MUMBLED TO INDICATE THAT HIS PERSONAL BELONGINGS WERE LEFT IN ER. THIS RN ASKED IF HE HAD PERSONAL BELONGINGS THAT WERE LEFT BEHIND IN ED, PT NODDED YES. ER NURSE BACK TO ED AND RETURNED PT'S PERSONAL BELONGINGS IN WHITE BAG. PHOTOS TAKEN OF PT'S COCCYX, SCROTUM, LEFT ELBOW, BILAT HEELS, BILAT FEET/TOES. ORA CARE PROVIDED AND PT CLEANED WHILE TURNING AND SKIN BEING ASSESSED. PT WITH OSTOMY AND SUPRAPUBIC CATHETER PRESENT, CATHETER CHANGED IN ED. SBP SOFT BUT STABLE. PT NOT ENDORSING ANY PAIN AT THIS TIME. AUDIBLE CRACKLES NOTED AT TIME OF ARRIVAL, SUCTION SETUP IN ROOM AND ORAL CARE PROVIDED. PT ORIENTED TO ROOM.
--- NOTE | 2023-12-21 18:49 | NUR ---
MD NOTIFIED OF COCCYX PRESSURE ULCER, MD INSTRUCTED THIS RN TO GET MEASUREMENTS CULTURE ANY DRAINAGE.
--- NOTE | 2023-12-21 19:45 | NUR ---
ASSUMPTION OF CARE ASSUMED CARE OF PATIENT AT 1900, BEDSIDE SHIFT REPORT RECEIVED FROM ASHA RN. PT RESTING IN BED, OPENS EYES SPONTANEOUSLY. BILATERAL FEET CLUBBED, MINIMAL MOVEMENT TO BUE. PT WITH MUMBLED SPEECH, VERY DIFFICULT TO UNDERSTAND PT APPEARS TO ATTEMPT TO ANSWER QUESTIONS WHEN ASKED AND FOLLOW DIRECTION WHEN PROMPTED. HR 100-110'S SINUS, MAP >65, SBP 80-100'S. PT ON 3LPM VIA NC, OXYGEN SATURATION >92%. ABDOMEN SOFT, BOWEL TONES ACTIVE, PT WITH COLOSTOMY IN PLACE WITH LIQUID BROWN/GREEN OUTPUT. CHRONIC SUPRAPUBIC CATHETER IN PLACE WITH YELLOW OUTPUT DRAINING TO GRAVITY. PIV IN PLACE TO RIGHT HAND INFUSING SODIUM BICARB AT 200MLS/HR. PT SKIN FRAGILE. ABRASIONS NOTED TO BILATERAL TOES, BILATERAL SHINS REDDENED WITH SCABS. SKIN TEAR PRESENT ON LEFT ELBOW. PRESSURE ULCER NOTED TO COCCYX, MEASUREMENTS AND PICTURES TAKEN, MEPILEX IN PLACE. MULTIPLE ABRASIONS NOTED TO PTS SKIN. BED IN LOWEST POSITON, SOFT TOUCH CALL LIGHT IN PLACE. CARE CONTINUES.
[2023-12-21] MEDS ORDERED: Meropenem 1,000 MG in NS 100 ML IV SCH (21:00)
[2023-12-22] VITALS (32 sets, daily range): BP systolic 84–117; BP diastolic 63–86
[2023-12-22] MEDS ORDERED: Insulin Regular 100 UNIT/ML 10ML Vial SC SCH
--- NOTE | 2023-12-22 00:41 | NUR ---
PT UPDATE COCCYX WOUND MEASURED, CULTURE TAKEN, MEPILEX REAPPLIED. CARE CONTINUES.
[2023-12-22] MEDS ORDERED: CARB10OTL BOTHEARS (04:42)
[2023-12-22] MEDS ORDERED: BISA10S PR (04:45)
--- NOTE | 2023-12-22 04:53 | NUR ---
SHIFT SUMMARY PT CONTINUES TO REST IN BED, SLEEPING BUT AROUSABLE. PT SPEECH HAS CLEARED THROUGHOUT THE SHIFT. PT MORE ALERT, ABLE TO ANSWER QUESTIONS MORE CLEARLY. BILATERAL FEET CLUBBED, MINIMAL MOVEMENT TO BUE. HR 100-120'S SINUS, SBP 80-120'S, MAP >65. PT ON 4L VIA NC, OXYGEN SATURATION >92%. ABDOMEN SOFT, BOWEL TONE ACTIVE THROUGHOUT. COLOSTOMY IN PLACE WITH BROWN/GREEN OUTPUT. SUPRAPUBIC CATHETER IN PLACE WITH YELLOW OUTPUT. PIV IN PLACE TO RIGHT HAND SL. BED IN LOWEST POSITION, SOFT TOUCH CALL LIGHT WITHIN REACH, CARE CONTINUES.
[2023-12-22 04:54] LABS: BASOPHILS ABSOLUTE AUTO 0.23 K/mm3 (0.00-0.23); BASOPHILS PERCENT AUTO 1 % (0-2); EOSINOPHILS ABSOLUTE AUTO 0.81 K/mm3 (0.00-0.68); EOSINOPHILS PERCENT AUTO 4 % (0-6); Hemoglobin 15.6 g/dL (13.5-17.5); IMMATURE GRAN ABSOLUTE AUTO 0.08 K/mm3 (0.00-0.10); IMMATURE GRAN PERCENT AUTO 0 % (0-1); LYMPHOCYTES ABSOLUTE AUTO 1.76 K/mm3 (0.84-5.20); LYMPHOCYTES PERCENT AUTO 9 % (21-46); MONOCYTES PERCENT AUTO 7 % (4-13); Mean Corpuscular HGB 27.5 pg (26.0-34.0); Mean Corpuscular HGB Conc 31.2 g/dL (31.5-36.5); Mean Corpuscular Volume 88 fL (80-100); Mean Platelet Volume 11.4 fL (9.1-12.4); NEUTROPHILS ABSOLUTE AUTO 14.59 K/mm3 (1.96-9.15); NEUTROPHILS PERCENT AUTO 77 % (41-73); Platelet Count 299 K/mm3 (150-400); RDW Coefficient Variation 15.8 % (11.7-14.2); RDW Standard Deviation 51.1 fL (35.1-46.3); Red Blood Cell Count 5.68 M/mm3 (4.30-5.90); White Blood Cell Count 18.87 K/mm3 (4.00-11.30)
[2023-12-22 05:57] LABS: Albumin, Blood 2.3 g/dL (3.4-5.0); Albumin/Globulin Ratio 0.6 (0.8-1.8); Bilirubin, Total 0.6 mg/dL (0.1-1.0); Bun/Creatinine Ratio 48.6 (12.0-20.0); Calcium, Blood 9.3 mg/dL (8.5-10.1); Creatinine, Blood 1.73 mg/dL (0.60-1.20); Globulin, Blood 4.1 g/dL (2.2-4.0); Potassium, Blood 3.2 mmol/L (3.5-5.5); Total Protein, Blood 6.4 g/dL (6.4-8.2)
[2023-12-22] MEDS ORDERED: Potassium Chloride 20 MEQ/15 ML UDC PO ONE (07:45)
[2023-12-22] MEDS ORDERED: Ipratropium/Albuterol SulF 2.5-0.5MG/3 ML Amp INH PRN (08:05)
[2023-12-22] MEDS ORDERED: Bisacodyl 10 MG Supp PR PRN (08:10)
[2023-12-22] MEDS ORDERED: DiphenhydrAMINE HCL 25 MG Cap PO PRN (08:10)
[2023-12-22] MEDS ORDERED: ClonazePAM 0.5 MG Tab PO PRN (08:10)
[2023-12-22] MEDS ORDERED: Acetaminophen 325 MG TABLET PO PRN (08:15)
[2023-12-22] MEDS ORDERED: Multivitamins 1 Tab PO SCH (09:00)
[2023-12-22] MEDS ORDERED: Lactated Ringer's 500 ML IV SCH (09:00)
[2023-12-22] MEDS ORDERED: DULoxetine HCL 30 MG Cap DR PO SCH (09:00)
[2023-12-22] MEDS ORDERED: Midodrine 2.5 MG Tab PO SCH (09:00)
[2023-12-22] MEDS ORDERED: Fosfomycin Tromethamine 3 GM Packet PO SCH ×2 (09:00→09:55)
[2023-12-22] MEDS ORDERED: Pregabalin 50 MG Capsule PO SCH (09:00)
[2023-12-22] MEDS ORDERED: Enoxaparin 40 MG/0.4 ML SYR SC SCH (09:00)
[2023-12-22] MEDS ORDERED: Metoprolol Tartrate 25 MG Tab PO SCH (09:00)
[2023-12-22] MEDS ORDERED: Mupirocin 2% Ointment 22 GM TOP SCH (09:00)
[2023-12-22] MEDS ORDERED: Doxycycline Hyclate 100 MG TAB PO SCH (09:55)
--- NOTE | 2023-12-22 10:15 | NUR ---
CONTACTED [facility]ARDING [facility], DOSING AND LAST GIVEN CLARIFIED. PHARMACY CONTACED WITH THIS INFORMATION. LET PHARMACY KNOW ROUNDING HAZMAT TECHNICIAN WAS REQUESTED TO CALL THEM BACK REGARDING FURTHER CLARIFICATION ON OTHER ORDERS. REQUESTED CLARIFICATION REGARDING FREE WATER VIA IV ROUTE, HAZMAT TECHNICIAN STATED HE WOULD SPEAK TO HIS SUPERIOR AND CLARIFY. PHARMACY MADE AWARE OF THIS CONVERSATION.
--- NOTE | 2023-12-22 10:38 | NUR ---
CALLED REPORT TO [facility]. PATIENT LEFT FLOOR WITH AUDIOVISUAL LEAD TECHNICIAN TRANSPORTING.
--- NOTE | 2023-12-22 10:55 | NUR ---
PATIENT TRANSFERED TO MEDICAL FLOOR THIS SHIFT. TOLERATED BREAKFAST WELL, TOOK PILLS WHOLE WITH PUDDING. RECEIVED BATH FROM IRRIGATION SYSTEM OPERATOR STAFF. SUPRAPUBIC CATH IN PLACE, DRAINING TO GRAVITY, NO SECUREMENT DEVICE IN PLACE FOR SKIN INTEGRITY, PATIENT NOT MOBILIZING AT THIS TIME. MEPILEX IN PLACE TO COCCYX AND LEFT ELBOW, SKIN OPEN TO AIR ON LEGS AND FEET, WOUND CARE NOT PERFORMED AT THIS TIME, WAITING FOR CLARIFICATION ON ORDERS, PASSED TO NEXT NURSE.
[2023-12-22] MEDS ORDERED: D5W-1/4NS 1,000 ML IV ONE (11:00)
[2023-12-22] MEDS ORDERED: Silver Sulfadiazine 1% Cream 25 APPLIC/25 GM Tube TOP SCH (11:12)
[2023-12-22] MEDS ORDERED: Meropenem 1,000 MG in NS 100 ML IV SCH (16:00)
[2023-12-22] MEDS ORDERED: NS 250 ML IV PRN (16:35)
--- NOTE | 2023-12-22 18:19 | NUR ---
SHIFT SUMMARY PT TRANSFERED FROM PCU 11 TO ROOM 330 THIS SHIFT. PT IS A&O X3 PT IS DIFFICULT TO UNDERSTAND HE TALKS REAL SOFT AND MUMBLES. PT IS A LIFT FOR TRANSFERS AND IS UNABLE TO MOVE LOWER EXTREMITIES. PT NOTED TO HAVE A SUPRAPUBIC CATH WHICH IS DRAINING YELLOW URINE. PT ALSO HAS A COLOSTOMY BAD WITH BROWN GREEN LIQUID STOOL NOTED. PT IS ON 4L/NC. PT NOTED TO BE SINUS TACH ON TELE HR 130S. PT IS A FEEDER AND ON A PURE DIET AND MILDLY THICKEN LIQUIDS VIA STRAW. PT TAKES MEDS WHOLE IN PUDDING 1 AT A TIME.
[2023-12-22] MEDS ORDERED: Cholecalciferol 1000 Unit Tablet (=25MCG) PO SCH (21:00)
[2023-12-22] MEDS ORDERED: Naltrexone HCl 50 MG Tab PO SCH (21:00)
[2023-12-22] MEDS ORDERED: Apixaban 5 MG Tab PO SCH ×2 (21:00)
[2023-12-23 02:26] VITALS: BP 86/67
[2023-12-23] MEDS ORDERED: Midodrine 5 MG Tab PO ONE (02:45)
[2023-12-23 05:27] VITALS: BP 93/75
--- NOTE | 2023-12-23 07:07 | NUR ---
AA0X4. PT IS SLOW TO RESPOND WITH A QUIET, MUMBLE VOICE. HE IS BEDBOUND AND REQUIRES MAX ASSIST WITH TURNS. 4L O2 VIA NC, BASELINE IS 2L. HE HAS SUCTION AVAILABLE WITH ASSISTANCE FOR SECRITIONS. COLOSTOMY AND SUPRAPUBIC CATH IN PLACE WITH COMPLICATIONS. PILLS WHOLE IN PUDDING ONE AT A TIME AND MIDLY THICKENED LIQUIDS WITH STRAW. NEEDS ASSISTANCE WITH MEALS.
[2023-12-23 07:32] VITALS: BP 98/76
[2023-12-23 08:19] LABS: BASOPHILS ABSOLUTE AUTO 0.14 K/mm3 (0.00-0.23); BASOPHILS PERCENT AUTO 1 % (0-2); EOSINOPHILS ABSOLUTE AUTO 0.62 K/mm3 (0.00-0.68); EOSINOPHILS PERCENT AUTO 4 % (0-6); Hematocrit 50.1 % (37.0-53.0); Hemoglobin 15.5 g/dL (13.5-17.5); IMMATURE GRAN ABSOLUTE AUTO 0.07 K/mm3 (0.00-0.10); IMMATURE GRAN PERCENT AUTO 0 % (0-1); LYMPHOCYTES ABSOLUTE AUTO 1.61 K/mm3 (0.84-5.20); LYMPHOCYTES PERCENT AUTO 10 % (21-46); MONOCYTES ABSOLUTE AUTO 1.09 K/mm3 (0.16-1.47); MONOCYTES PERCENT AUTO 7 % (4-13); Mean Corpuscular HGB 27.7 pg (26.0-34.0); Mean Corpuscular HGB Conc 30.9 g/dL (31.5-36.5); Mean Corpuscular Volume 90 fL (80-100); Mean Platelet Volume 11.5 fL (9.1-12.4); NEUTROPHILS ABSOLUTE AUTO 12.31 K/mm3 (1.96-9.15); NEUTROPHILS PERCENT AUTO 78 % (41-73); Platelet Count 305 K/mm3 (150-400); RDW Coefficient Variation 15.8 % (11.7-14.2); White Blood Cell Count 15.84 K/mm3 (4.00-11.30)
[2023-12-23 08:38] LABS: Bun/Creatinine Ratio 51.3 (12.0-20.0); Calcium, Blood 9.7 mg/dL (8.5-10.1); Creatinine, Blood 1.5 mg/dL (0.60-1.20); Potassium, Blood 3.6 mmol/L (3.5-5.5)
[2023-12-23 15:09] VITALS: BP 113/83
--- NOTE | 2023-12-23 16:18 | NUR ---
SHIFT SUMMARY: PATIENT A/OX3, MUMBLED SPEECH SOMETIMES IT'S HARD TO UNDERSTAND, PLEASANT AND COOPERATIVE c CARE. PATIENT DENIES CP/PRESSURE, SOB, N/V AND DIZZINESS. PATIENT ON TELE, SR/ST HR IN THE HIGH 90'S TO LOW 100'S BPM. PATIENT HAS WEAK PRODUCTIVE COUGH, CURRENTLY ON 4L O2 VIA NC SATTING 94-97%. PATIENT IS ON PUREED DIET c THICKENED LIQUID, 1:1 FEED ASSIST, THIS RN WERE NOTIFIED BY JOHN HELLER, "PATIENT COUGHING EVERYTIME HE TOOK A BITE AND SHE NEEDS TO SUCTIONED HIM IN BETWEEN BITES." THIS RN SPOKE TO PATIENT REGARDING THIS ISSUE. PER PATIENT "I WANT TO CONTINUE TO EAT AND DRINK, I KNOW THAT I AM ASPIRATION RISK, BUT IT DOES NOT STOP ME FROM EATING." DR. GONZALEZ NOTIFIED c THIS CONCERNED. PER DR. GONZALEZ TO CONTINUE FEEDING THE PATIENT. ST ORDERED IN PLACED FOR SWALLOW EVAL AND NOTIFIED PALLIATIVE RN, TAD REGARDING THIS CONCERNED. PER TAD SHE WILL TALKED TO DR. GONZALEZ. PATIENT RECEIVED BED BATH, LINEN CHANGED, ORAL CARE/SUCTIONED AND REPOSITIONED T/O SHIFT. PATIENT HAS DECUB WOUND TO COCCYX, MIPELEX DRESSING IN PLACED. PATIENT HAS CHRONINC SUPRAPUBIC CATHETER, DRAINING YELLOW URINE TO GRAVITY. CHRONIC COLOSTOMY PRODUCING BROWN LIQUID STOOL. PATIENT RECEIVED IV ABX/SCHEDULED MED PER EMAR. VITAL SIGNS REVIEWED. CALL LIGHT IN REACH.
--- NOTE | 2023-12-23 17:46 | NUR ---
CASE CONFERENCE: RECEIVED REPORT FROM PHYSICIAN AND BEDSIDE RN THAT PT IS CHOKING WHILE EATING. BOTH HIS COUSIN TOMAS AND CHARGE NURSE JOSEPH AT [facility] BOTH STATE HE CHOKES WHEN EATING AT HIS BASELINE. JOSEPH STATES HE HAS SIGNED RISK VS BENEFITS WAIVERS IN THE PAST WHEN EATING SOLID FOODS, BUT HAS SINCE HAD TO CHANGE TO PUREED WITH HONEY THICKENED LIQUIDS DUE TO WHAT EVEN THE PATIENT CONSIDERED TOO MUCH CHOKING. JOSEPH ALSO SHARED THAT APPROXIMATELY A WEEK AGO, BOTH SHE AND THE RCM JACOB AT [facility] DISCUSSED MOVING TO PALLIATIVE OR HOSPICE CARE AND THE PATIENT SAID A RESOUNDING "NO!" EXPLAINED THIS TO BEDSIDE RN, PHYSICIAN AND TO THE PATIENT (WHICH HE AGREES WITH). FOR NOW, PLAN TO CONTINUE WITH CURRENT MEAL ORDERS.
[2023-12-23 20:05] VITALS: BP 112/79
[2023-12-24 03:36] VITALS: BP 104/72
--- NOTE | 2023-12-24 05:26 | NUR ---
ADMITTED 12/21/23 FOR TOXIC METABOLIC ENCEPALOPATHY, UNKNOW ORGION, EBLS IN URINE (CONTACT PRECAUTIONS) AND LLL PNU.AAOX4 WITH SOME CONFUSION TO SITUATION.PT IS BEDBOUND AND UNALBE TO MOVE EXTREMITIES AT BASELINE. QUIET VOICE AND MUMBLES. 4L VIA NC IN HOSPITAL BASELINE IS 2L. COLOSTOMY AND SUPRAPUBIC CATH. CATH STARTED LEAKING AROUND 0400. PT HAS MIDLY THICK LIQUIDS WITH STAW. HE IS AWARE OF ASPIRATION RISK WITH FOOD AND [facility] TO CONTINUE EATING FOODS OF HIS CHOICE. MAX ASSIST X2 AND ASSIST WITH FEEDING.
[2023-12-24 05:55] LABS: BASOPHILS ABSOLUTE AUTO 0.12 K/mm3 (0.00-0.23); BASOPHILS PERCENT AUTO 1 % (0-2); EOSINOPHILS ABSOLUTE AUTO 0.95 K/mm3 (0.00-0.68); EOSINOPHILS PERCENT AUTO 7 % (0-6); Hematocrit 47.9 % (37.0-53.0); Hemoglobin 14.6 g/dL (13.5-17.5); IMMATURE GRAN ABSOLUTE AUTO 0.06 K/mm3 (0.00-0.10); IMMATURE GRAN PERCENT AUTO 0 % (0-1); LYMPHOCYTES PERCENT AUTO 9 % (21-46); MONOCYTES ABSOLUTE AUTO 1.22 K/mm3 (0.16-1.47); MONOCYTES PERCENT AUTO 9 % (4-13); Mean Corpuscular HGB 27.6 pg (26.0-34.0); Mean Corpuscular HGB Conc 30.5 g/dL (31.5-36.5); Mean Corpuscular Volume 91 fL (80-100); Mean Platelet Volume 11.5 fL (9.1-12.4); NEUTROPHILS ABSOLUTE AUTO 10.69 K/mm3 (1.96-9.15); NEUTROPHILS PERCENT AUTO 75 % (41-73); Platelet Count 232 K/mm3 (150-400); RDW Standard Deviation 52.2 fL (35.1-46.3); Red Blood Cell Count 5.29 M/mm3 (4.30-5.90); White Blood Cell Count 14.34 K/mm3 (4.00-11.30)
[2023-12-24 06:18] LABS: Bun/Creatinine Ratio 46.4 (12.0-20.0); Calcium, Blood 9.2 mg/dL (8.5-10.1); Creatinine, Blood 1.4 mg/dL (0.60-1.20); Potassium, Blood 3.5 mmol/L (3.5-5.5)
[2023-12-24] MEDS ORDERED: D5W-1/4NS 1,000 ML IV SCH (08:00)
[2023-12-24 08:34] VITALS: BP 106/86
--- NOTE | 2023-12-24 17:17 | NUR ---
Pt wanting water, he is also wanting to be turned more. denies headaches or pain states his bottom get really sore. Advised nursing of his needs. Pt oriented but seemed to struggle with processing future care needs. Will attemtpt to facilitate a team meeting with nursing home. Pt at risk for frequent readmissions and suffering. kps score 30%
[2023-12-24 19:30] VITALS: BP 109/76
--- NOTE | 2023-12-24 19:49 | NUR ---
PT PLEASNT TODAY. VERY SOFT SPOKEN. STATES DOES HAVE AGREEMENT AT [facility] TO EAT EVEN IF ASPIRATES. DISCUSSED WITH DR PUCKETT. ASKED FOR SOME ORDER OF SAME TYPE. PT APPEARED TO CHOKE MUCH MORE THIS ASHLI. HELD MOST OF DINNER. NO OTHER NEW CONCERNS NOTED. BED IN LOW POSITION, CALL LITE IN REACH, CALLS APPROP
[2023-12-25 02:17] VITALS: BP 84/51
[2023-12-25 03:01] VITALS: BP 93/58
--- NOTE | 2023-12-25 05:51 | NUR ---
PT ADMITTED 12/21/23 FROM [facility] FOR TOXIC METABOLIC ENCEP, LLL PNU AND ESBL IN URINE, CONTACT PRECAUTIONS. AAOX4 WITH INTERMITENT CONFUSION. 2L NC, WHICHS IS BASELINE. SUPRAPUBIC CATH AND OSTOMY. PT HAS SEVERE MS AND IS A QUAD WITH LITTLE MOVEMENT OF RUE. MAX ASSIST X 2 FOR REPO. UNABLE TO MANAGE SECRETIONS (SUCTION AT BEDSIDE), ASPIRATION RISH AND FEEDER.
[2023-12-25 07:15] LABS: BASOPHILS ABSOLUTE AUTO 0.11 K/mm3 (0.00-0.23); BASOPHILS PERCENT AUTO 1 % (0-2); EOSINOPHILS ABSOLUTE AUTO 1.04 K/mm3 (0.00-0.68); EOSINOPHILS PERCENT AUTO 9 % (0-6); Hematocrit 45.5 % (37.0-53.0); Hemoglobin 13.6 g/dL (13.5-17.5); IMMATURE GRAN ABSOLUTE AUTO 0.04 K/mm3 (0.00-0.10); IMMATURE GRAN PERCENT AUTO 0 % (0-1); LYMPHOCYTES ABSOLUTE AUTO 1.35 K/mm3 (0.84-5.20); LYMPHOCYTES PERCENT AUTO 12 % (21-46); MONOCYTES ABSOLUTE AUTO 0.83 K/mm3 (0.16-1.47); MONOCYTES PERCENT AUTO 7 % (4-13); Mean Corpuscular HGB Conc 29.9 g/dL (31.5-36.5); Mean Corpuscular Volume 91 fL (80-100); Mean Platelet Volume 11.4 fL (9.1-12.4); NEUTROPHILS ABSOLUTE AUTO 7.85 K/mm3 (1.96-9.15); NEUTROPHILS PERCENT AUTO 70 % (41-73); Platelet Count 208 K/mm3 (150-400); RDW Coefficient Variation 15.8 % (11.7-14.2); RDW Standard Deviation 51.8 fL (35.1-46.3); Red Blood Cell Count 5.03 M/mm3 (4.30-5.90); White Blood Cell Count 11.22 K/mm3 (4.00-11.30)
[2023-12-25 07:32] LABS: Albumin/Globulin Ratio 0.6 (0.8-1.8); Bilirubin, Total 0.6 mg/dL (0.1-1.0); Bun/Creatinine Ratio 46.7 (12.0-20.0); Calcium, Blood 9.1 mg/dL (8.5-10.1); Creatinine, Blood 1.22 mg/dL (0.60-1.20); Globulin, Blood 3.6 g/dL (2.2-4.0); Potassium, Blood 3.7 mmol/L (3.5-5.5); Total Protein, Blood 5.6 g/dL (6.4-8.2)
[2023-12-25 07:51] VITALS: BP 91/68
--- NOTE | 2023-12-25 16:39 | NUR ---
discharge to [facility]. peripheral line pulled by asya. tele removed. pt kept powerglide. last abx run slightly early, alpproved by moira calzada. pt wheeled to door at 1630 by transport. called report to [facility]. states busy so left message to call.
== END 2023-12-25 16:29 | DRG 698 ==
LOC: ER 02:37 → MEDS 04:35 → ERHOLD 04:35 → PCU 15:51 → MEDS 16:00
PROVIDERS: Emergency Medicine; Family Medicine; Student in an Organized Health Care Education/Training Program; ADMIT Internal Medicine
DX: T83.511A Infection and inflammatory reaction due to indwelling urethral catheter, initial encounter (principal); A41.9 Sepsis, unspecified organism; Z66 Do not resuscitate; G92.8 Other toxic encephalopathy; R53.2 Functional quadriplegia; R65.20 Severe sepsis without septic shock; J96.21 Acute and chronic respiratory failure with hypoxia; J96.22 Acute and chronic respiratory failure with hypercapnia; J69.0 Pneumonitis due to inhalation of food and vomit; N17.9 Acute kidney failure, unspecified; D84.821 Immunodeficiency due to drugs; E87.4 Mixed disorder of acid-base balance; E87.0 Hyperosmolality and hypernatremia; L89.159 Pressure ulcer of sacral region, unspecified stage; I48.91 Unspecified atrial fibrillation; G35 Multiple sclerosis; N31.9 Neuromuscular dysfunction of bladder, unspecified; R13.10 Dysphagia, unspecified; E87.5 Hyperkalemia; F41.9 Anxiety disorder, unspecified; F32.A Depression, unspecified; K21.9 Gastro-esophageal reflux disease without esophagitis; D64.9 Anemia, unspecified; Z96.1 Presence of intraocular lens; Z98.42 Cataract extraction status, left eye; Z98.41 Cataract extraction status, right eye; Z98.890 Other specified postprocedural states; Z88.5 Allergy status to narcotic agent; Z88.8 Allergy status to other drugs, medicaments and biological substances; Z91.041 Radiographic dye allergy status; Z88.1 Allergy status to other antibiotic agents; Z88.2 Allergy status to sulfonamides; Z79.01 Long term (current) use of anticoagulants; Z79.899 Other long term (current) drug therapy; Y84.6 Urinary catheterization as the cause of abnormal reaction of the patient, or of later complication, without mention of misadventure at the time of the procedure
CPT/HCPCS: 36415; 51705; 71045; 80048; 80053; 81001; 82803; 82947; 83605; 83735; 84100; 84145; 84443; 84484; 84550; 85025; 87040; 87077; 87081; 87086; 87186; 93005; 93010; 94640; 94664; 94760; 99285-25; A9270; C1751; C2627; J1644; J2185; J7030; J7042; J7050; J7070

== ENCOUNTER 2024-03-06 22:24 | Inpatient (IN) | payer MEDICARE, OTHER ==
[~2024-03-06] VITALS: Ht 190.5 cm; Wt 94.8 kg
[2024-03-06] MEDS ORDERED: NS 1,000 ML IV SCH (23:25)
[2024-03-06] MEDS ORDERED: Ampicillin Sod/Sulbactam Sod 3 GM in NS 100 ML IV ONE (23:30)
[2024-03-07] VITALS (20 sets, daily range): BP systolic 76–103; BP diastolic 58–85
[2024-03-07 00:20] LABS: BASOPHILS ABSOLUTE AUTO 0.04 K/mm3 (0.00-0.23); BASOPHILS PERCENT AUTO 0 % (0-2); EOSINOPHILS ABSOLUTE AUTO 0.01 K/mm3 (0.00-0.68); EOSINOPHILS PERCENT AUTO 0 % (0-6); Hematocrit 42.7 % (37.0-53.0); Hemoglobin 12.4 g/dL (13.5-17.5); IMMATURE GRAN ABSOLUTE AUTO 0.24 K/mm3 (0.00-0.10); IMMATURE GRAN PERCENT AUTO 1 % (0-1); LYMPHOCYTES ABSOLUTE AUTO 1.61 K/mm3 (0.84-5.20); LYMPHOCYTES PERCENT AUTO 8 % (21-46); MONOCYTES ABSOLUTE AUTO 1.39 K/mm3 (0.16-1.47); MONOCYTES PERCENT AUTO 7 % (4-13); Mean Corpuscular Volume 83 fL (80-100); Mean Platelet Volume 9.5 fL (9.1-12.4); NEUTROPHILS ABSOLUTE AUTO 18.15 K/mm3 (1.96-9.15); NEUTROPHILS PERCENT AUTO 85 % (41-73); Platelet Count 951 K/mm3 (150-400); RDW Coefficient Variation 17.1 % (11.7-14.2); RDW Standard Deviation 50.3 fL (35.1-46.3); Red Blood Cell Count 5.16 M/mm3 (4.30-5.90); White Blood Cell Count 21.44 K/mm3 (4.00-11.30)
[2024-03-07 00:40] LABS: Albumin, Blood 2.4 g/dL (3.4-5.0); Albumin/Globulin Ratio 0.5 (0.8-1.8); Bilirubin, Total 0.4 mg/dL (0.1-1.0); Calcium, Blood 10.4 mg/dL (8.5-10.1); Creatinine, Blood 1.53 mg/dL (0.60-1.20); Globulin, Blood 4.9 g/dL (2.2-4.0); Magnesium, Blood 2.1 mg/dL (1.6-2.4); Total Protein, Blood 7.3 g/dL (6.4-8.2)
[2024-03-07 01:19] LABS: Base Excess Venous -0.5 mmol/L; Bicarbonate Venous 23.8 mmol/L (24.0-30.0); PCO2 Venous 34.5 mmHg (38-42); pH Blood Venous 7.44 (7.34-7.37)
[2024-03-07] MEDS ORDERED: FLU VACC TS2024-25(6MOS UP)/PF 45 MCG/0.5 ML SYRINGE IM ONE (01:55)
[2024-03-07] MEDS ORDERED: Lactated Ringer's 1,000 ML IV SCH ×2 (02:00→17:00)
[2024-03-07] MEDS ORDERED: MethylPREDNISolone Sod Succ 125 MG Vial IV SCH (02:00)
[2024-03-07] MEDS ORDERED: Vancomycin HCL 2,500 MG in NS 500 ML IV ONE (02:00)
[2024-03-07] MEDS ORDERED: Acetaminophen650 M1 PR (02:10)
[2024-03-07] MEDS ORDERED: HYDMOR2 PO (02:11)
[2024-03-07] MEDS ORDERED: ATROPINE SULFATE2 M1 SL (02:11)
[2024-03-07] MEDS ORDERED: [UNRECOGNIZED DRUG - OTHER] PO (02:12)
[2024-03-07] MEDS ORDERED: METH10 PO (02:13)
[2024-03-07] MEDS ORDERED: ONDA4ODT MM (02:14)
[2024-03-07 02:27] LABS: CORONAVIRUS COVID-19 AG Negative (NEGATIVE); INFLUENZA A AG Negative (NEGATIVE); INFLUENZA B AG Negative (NEGATIVE)
[2024-03-07 04:42] LABS: Hematocrit 39.3 % (37.0-53.0); Hemoglobin 11.5 g/dL (13.5-17.5); Mean Corpuscular HGB 24.3 pg (26.0-34.0); Mean Corpuscular HGB Conc 29.3 g/dL (31.5-36.5); Mean Corpuscular Volume 83 fL (80-100); Mean Platelet Volume 9.2 fL (9.1-12.4); NRBC ABSOLUTE 0.02 K/mm3 (0.00-0.02); NRBC Auto 0.1 /100 WBC (0.0-0.2); Platelet Count 683 K/mm3 (150-400); RDW Coefficient Variation 16.9 % (11.7-14.2); RDW Standard Deviation 50.4 fL (35.1-46.3); Red Blood Cell Count 4.73 M/mm3 (4.30-5.90); White Blood Cell Count 36.38 K/mm3 (4.00-11.30)
[2024-03-07 05:20] LABS: Source, Urine Foley catheter
[2024-03-07 05:36] LABS: Blood, Urine 5+ (Neg); Glucose Qualitative, Urine Neg (Neg); Ketones, Urine 1+ (Neg); Leukocyte Esterase, Urine 3+ (Neg); Nitrite, Urine Pos (Neg); Protein, Urine 3+ (Neg); Specific Gravity, Urine 1.025 (1.003-1.022); Urobilinogen, Urine NORM (Normal)
[2024-03-07 05:46] LABS: Bun/Creatinine Ratio 18.1 (12.0-20.0); Calcium, Blood 9.1 mg/dL (8.5-10.1); Creatinine, Blood 1.49 mg/dL (0.60-1.20); Potassium, Blood 3.1 mmol/L (3.5-5.5)
[2024-03-07 05:48] LABS: Appearance, Urine Hazy (Clear); Bilirubin, Urine 1+ (Neg); Color, Urine Yellow (P-Yellow)
[2024-03-07 05:50] LABS: Bacteria Many /hpf; Red Blood Cells, Urine TNTC /hpf (0-2); Squamous Epithelial Cells Not Seen /hpf (Few); White Blood Cells, Urine TNTC /hpf (0-5)
[2024-03-07] MEDS ORDERED: Pantoprazole Sodium 40 MG Injection IV SCH ×2 (06:00→17:00)
[2024-03-07] MEDS ORDERED: Meropenem 1,000 MG in NS 100 ML IV SCH (08:00)
[2024-03-07] MEDS ORDERED: Heparin Sodium 5000 Units/ML 1ML MDV SC SCH ×2 (09:00→17:00)
--- NOTE | 2024-03-07 11:08 | NUR ---
Patient is lying in bed and is alert. Patient is known to this palaeontologist from prior visits. He welcomes the visit and a prayer being said on his behalf. He shows signs of greater peace. I will continue to remain available to patient and family.
[2024-03-07] MEDS ORDERED: HYDROmorphone HCl/Pf 1MG SYR IV PRN (11:10)
[2024-03-07] MEDS ORDERED: NS 1,000 ML IV SCH (12:25)
[2024-03-07] MEDS ORDERED: Midazolam HCl 1MG / ML 2ML Vial IV ONE (15:00)
[2024-03-07] MEDS ORDERED: PROPOFOL 10 MG/ML IV ONE (15:00)
--- NOTE | 2024-03-07 15:16 | NUR ---
ADMIT PT ARRIVED TO ICU 8 VIA ER BED @1400. PT IS AWAKE AND ABLE TO NOD TO SOME QUESTIONS. PT ON AIRVO UPON ARRIVAL. PT WITH SPO2 IN THE LOW 80'S, AIRVO INCREASED TO 60L, FIO2 90%. DR ISRAEL AT BEDSIDE TO DISCUSS NEED FOR INTUBATION WITH PT. PT NODS AND VERBALIZED UNDERSTANDING AND WANTS TO PROCEED. PT WITH MULTIPLE WOUNDS TO BLE'S AND WOUNDS TO COCCYX. PHOTOS IN CHART. DR ISRAEL NOTIFIED OF WOUNDS. NO FAMILY AT BEDSIDE. WILL CONTINUE TO MONITOR.
--- NOTE | 2024-03-07 15:43 | NUR ---
INTUBATION 1543: Dr Nam at bedside. Pt on AirVO 60 LPM and 95% FiO2 1545: 4 mg versed given, 50 mg propofol 1546: 50 mg propofol 1547: Successful intubation 8.0, 26 at tooth. Confirmation with auscultation of bilateral breath sounds and colormetric CO2 detector. 1548: BP 61/51, LR rate increased to WO 1549: Levophed started at 6 mcg/min. 1552: BP 78/69 1553: BP 53/37, levophed increased to 10 mcg/min.
[2024-03-07] MEDS ORDERED: propofoL 100 ML IV SCH (16:00)
[2024-03-07] MEDS ORDERED: NS 250 ML IV PRN (16:10)
--- NOTE | 2024-03-07 16:14 | NUR ---
Met with pt and Dr. Nam at bedside. The patient was on airvo, 100% and desatting. Dr. Nam discussed this with the patient, who was agreeable to intubation and if needed, a trach. Spoke with pt's cousin Mariel who is in agreement with this plan.
[2024-03-07 17:36] LABS: PCO2 Arterial 41.9 mmHg (35-45); PO2 Arterial 71.7 mmHg (80-100); pH Blood Arterial 7.55 (7.35-7.45)
[2024-03-07] MEDS ORDERED: NS 1,000 ML IV ONE (18:00)
--- NOTE | 2024-03-07 18:04 | NUR ---
SHIFT SUMMARY PT INTUBATED AND SEDATED. SEE INTUBATION NOTES FOR MORE INFO. VENT SETTINGS AC 16, TV 500, PEEP 7, FI02 50%. PT WITH COPIOUS THICK SECRETIONS. CENTRAL LINE PLACED TO RIGHT SC. LEVOPHED INFUSING, PROPOFOL INFUSING, AND NS BOLUS INFUSING AT THIS TIME. SEE FLOWSHEET FOR TITRATIONS. PT WITH LARGE VOLUME OF DARK BROWN LIQUID OUTPUT FROM OGT. SUPRAPUBIC REMAINS C/D/I. WOUNDS UNCHANGED. VITAL SIGNS STABLE AT THIS TIME. NO FAMILY AT BEDSIDE. WILL CONTINUE TO MONITOR AND REPORT OFF TO ONCOMING RN.
[2024-03-07] MEDS ORDERED: Cetylpyridinium Chloride 1 EA MISC MT SCH (20:00)
[2024-03-07 22:30] LABS: Vancomycin, Random 30.1 ug/mL
--- NOTE | 2024-03-07 23:48 | NUR ---
THIS RN ASSUMED CARE OF PT AT 1900. PT IS INTUBATED AT SEDATED, PT IS FLACCID IN BLE AND CONTRACTED IN RUE. PT HAS OPENED EYES, BUT STILL HAS A GAG AND COUGH. PT HEART RATE IS IN THE 100s, BLOOD PRESSURE STABLE AT 96/77 ON 10 OF LEVO PT SOUNDS CLEAR/DIMINSHED AND IS ON ACVC TV 500, FIO2 50%, PEEP 7, RR 16 AND PT TOLERATING VENT WELL. PT HAS A RIGHT SUBCLAVIAN CENTRAL LINE THAT IS CLEAN, DRY AND INTACT. PT SUPRAPUBIC CATHETER DRAINING TO GRAVITY. PT HAS TWO PRESSURE INJURIES ON COCCYX COVERED WITH A MEPILEX. NO OTHER INTERVENTIONS AT THIS TIME. PLAN OF CARE CONTINUED.
[2024-03-08] VITALS (56 sets, daily range): BP systolic 81–129; BP diastolic 47–81
[2024-03-08] MEDS ORDERED: Hydrogen Peroxide 1.5 % Solution MT SCH
[2024-03-08 03:56] LABS: BASOPHILS ABSOLUTE AUTO 0.08 K/mm3 (0.00-0.23); BASOPHILS PERCENT AUTO 0 % (0-2); EOSINOPHILS PERCENT AUTO 0 % (0-6); Hematocrit 31.9 % (37.0-53.0); Hemoglobin 9.6 g/dL (13.5-17.5); IMMATURE GRAN ABSOLUTE AUTO 0.47 K/mm3 (0.00-0.10); IMMATURE GRAN PERCENT AUTO 1 % (0-1); LYMPHOCYTES ABSOLUTE AUTO 1.17 K/mm3 (0.84-5.20); LYMPHOCYTES PERCENT AUTO 3 % (21-46); MONOCYTES ABSOLUTE AUTO 1.39 K/mm3 (0.16-1.47); MONOCYTES PERCENT AUTO 4 % (4-13); Mean Corpuscular HGB 24.4 pg (26.0-34.0); Mean Corpuscular HGB Conc 30.1 g/dL (31.5-36.5); Mean Corpuscular Volume 81 fL (80-100); Mean Platelet Volume 9.4 fL (9.1-12.4); NEUTROPHILS PERCENT AUTO 92 % (41-73); NRBC ABSOLUTE 0.07 K/mm3 (0.00-0.02); NRBC Auto 0.2 /100 WBC (0.0-0.2); Platelet Count 576 K/mm3 (150-400); RDW Standard Deviation 49.5 fL (35.1-46.3); Red Blood Cell Count 3.94 M/mm3 (4.30-5.90); White Blood Cell Count 39.71 K/mm3 (4.00-11.30)
[2024-03-08 04:19] LABS: Albumin, Blood 1.8 g/dL (3.4-5.0); Anion Gap 10 mmol/L (3-11); Blood Urea Nitrogen 37 mg/dL (8-24); Bun/Creatinine Ratio 25.2 (12.0-20.0); CO2, Blood 34 mmol/L (21-32); Calcium, Blood 8.3 mg/dL (8.5-10.1); Chloride, Blood 105 mmol/L (98-108); Creatinine, Blood 1.47 mg/dL (0.60-1.20); Glomerular Filtration Rate 52 (60-); Glucose, Blood 162 mg/dL (70-99); Phosphorus, Blood 1.4 mg/dL (2.5-4.9); Potassium, Blood 2.7 mmol/L (3.5-5.5); Sodium, Blood 146 mmol/L (136-145)
--- NOTE | 2024-03-08 05:27 | NUR ---
PT SUMMARY PT IS STILL INTUBATED AND SEDATED, PT WAS ABLE TO SHAKE HEAD YES AND NO TO DIRECT QUESTIONS. PT HGB DROPPED ON MORNING LABS, PT ALSO HAVE SOME COFFEE GROUND EMESIS THROUGH THE OG TUBE, AND POTASSIUM 2.7. DR. BAHENA NOTIFIED AND D/Cd HEPARIN, AND ORDERED POTASSIUM CHLORIDE IV. NO OTHER NEW ACUTE EVENTS TO REPORT OVERNIGHT. PLAN OF CARE CONTINUED.
[2024-03-08] MEDS ORDERED: Potassium Phosphate Dibasic 30 MM in Dextrose 5% 500 ML IV STA (11:00)
--- NOTE | 2024-03-08 11:00 | NUR ---
DR ISRAEL NOTIFIED PATIENT SBP 180-190S THIS AM APPROX 11AM. NO NEW ORDERES AT THIS TIME.
[2024-03-08] MEDS ORDERED: Albumin (Human) 25gm/100ml 100 ML IV ONE (14:15)
[2024-03-08 14:22] LABS: Stool Occult Blood Guaiac 1 Pos (Neg)
[2024-03-08] MEDS ORDERED: Midazolam HCl 1MG / ML 2ML Vial IV ONE (15:11)
[2024-03-08] MEDS ORDERED: Propofol 10mg/ml 20 ml Vial (Procedural) IV ONE (15:11)
[2024-03-08 17:27] LABS: Hemoglobin 8.1 g/dL (13.5-17.5)
--- NOTE | 2024-03-08 17:58 | NUR ---
PATIENT ALERT AND ORIENTED X4. ABLE TO PARTICIPATE IN NEURO EXAM BUT REQUIRES YES/NO ANSWERES THAT HE CAN NOD YES/NO TO. TELE SR, HYPOTENSION INTERMITTENT SEE MAR FOR MED MANAGMENT WITH LEVO. SUPPLEMENTED KCL AND KPHOS TODAY DUE TO HYPOKALEMIA. O2 SATS REMAINED 99-100%. VENT SETTINGS ADJUSTED BY RT THIS AFTERNOON AND PATIENT TOLERATING WELL. BIBASILAR CRACKLES/COARSE LUNG SOUNDS. +COUGH AND GAG REFLEX. DR ISRAEL NOTIFIED OF PATIENTS COFFEE GROUND OG OUTPUT THIS AM. H/H REPEATED THIS EVENING. NOTIFIED DR ISRAEL OF RESULTS AT 1755, NO NEW ORDERS. CLEARY CATH DRAINING TO GRAVITY ILLEOSTOMY IS PATENT, STOOL IS BLACK IN COLOR TUBE FEEDS STARTED AT 10ML/HR PATIENT COMPLAINED OF ABDO PAIN AND CHRONIC GENERALIZED PAIN TODAY, MANAGED WITH PRN DILAUDID.
--- NOTE | 2024-03-08 20:44 | NUR ---
THIS RN ASSUMED CARE OF PT AT 1900. PT IS INTUBATED AND SEDATED BUT STILL ABLE TO SHAKE HEAD YES AND NO TO DIRECT QUESTIONS. PT ON PROP FOR SEDATION AND LEVO FOR HYPOTENSION. PT HEART RATE IS IN THE 80s, NORMAL SINUS RHYTHM, UNABLE TO ASSESS FOR CHEST PAIN, BLOOD PRESSURE STABLE AT 97/63 MAP OF 74 AND ON 7 OF LEVO. PT SOUNDS CLEAR/DIMINISHED/COURSE, ON THE VENT TOLERATING WELL, ACVC TV 500, FIO2 30%, PEEP 7 AND RR 16. PT IS ABLE TO MOVE RIGHT ARM NOT AGAINST GRAVITY, OTHER EXTREMITIES CONTRACTURED OR FLACCID, PULSES DOPPLER STRONG. PT HAS PRESSURE INJURIES ON COCCYX WITH MEPILEX IN PLACE AND Q2HR TURNS. NO OTHER INTERVENTIONS AT THIS TIME. PLAN OF CARE CONTINUED.
[2024-03-08] MEDS ORDERED: Pantoprazole Sodium 40 MG Injection IV SCH (21:00)
[2024-03-09] VITALS (75 sets, daily range): BP systolic 80–130; BP diastolic 51–73
[2024-03-09 00:11] LABS: Hematocrit 25.5 % (37.0-53.0); Hemoglobin 7.5 g/dL (13.5-17.5)
[2024-03-09] MEDS ORDERED: Vancomycin HCL 1,000 MG in NS 250 ML IV ONE (03:00)
[2024-03-09 04:30] LABS: BASOPHILS ABSOLUTE AUTO 0.02 K/mm3 (0.00-0.23); BASOPHILS PERCENT AUTO 0 % (0-2); EOSINOPHILS ABSOLUTE AUTO 0.08 K/mm3 (0.00-0.68); EOSINOPHILS PERCENT AUTO 0 % (0-6); Hematocrit 25.1 % (37.0-53.0); Hemoglobin 7.5 g/dL (13.5-17.5); IMMATURE GRAN ABSOLUTE AUTO 0.11 K/mm3 (0.00-0.10); IMMATURE GRAN PERCENT AUTO 1 % (0-1); LYMPHOCYTES ABSOLUTE AUTO 1.28 K/mm3 (0.84-5.20); LYMPHOCYTES PERCENT AUTO 6 % (21-46); MONOCYTES ABSOLUTE AUTO 1.07 K/mm3 (0.16-1.47); MONOCYTES PERCENT AUTO 5 % (4-13); Mean Corpuscular HGB 24.4 pg (26.0-34.0); Mean Corpuscular HGB Conc 29.9 g/dL (31.5-36.5); Mean Corpuscular Volume 82 fL (80-100); Mean Platelet Volume 9.3 fL (9.1-12.4); NEUTROPHILS ABSOLUTE AUTO 17.82 K/mm3 (1.96-9.15); NEUTROPHILS PERCENT AUTO 87 % (41-73); NRBC ABSOLUTE 0.02 K/mm3 (0.00-0.02); NRBC Auto 0.1 /100 WBC (0.0-0.2); Platelet Count 347 K/mm3 (150-400); RDW Coefficient Variation 16.8 % (11.7-14.2); Red Blood Cell Count 3.08 M/mm3 (4.30-5.90); White Blood Cell Count 20.38 K/mm3 (4.00-11.30)
[2024-03-09 04:46] LABS: Albumin, Blood 2.2 g/dL (3.4-5.0); Anion Gap 9 mmol/L (3-11); Blood Urea Nitrogen 35 mg/dL (8-24); Bun/Creatinine Ratio 30.2 (12.0-20.0); CO2, Blood 30 mmol/L (21-32); Calcium, Blood 7.9 mg/dL (8.5-10.1); Chloride, Blood 109 mmol/L (98-108); Creatinine, Blood 1.16 mg/dL (0.60-1.20); Glomerular Filtration Rate 69 (60-); Glucose, Blood 90 mg/dL (70-99); Phosphorus, Blood 2.5 mg/dL (2.5-4.9); Potassium, Blood 3.3 mmol/L (3.5-5.5); Sodium, Blood 145 mmol/L (136-145)
--- NOTE | 2024-03-09 05:33 | NUR ---
PT SUMMARY PT IS STILL INTUBATED AND SEDATED BUT STILL ABLE TO NOD HEAD YES AND NO. PT HGB DID HAVE A HGB DROP TO 7.5 AT MIDNIGHT AND WAS STILL THE SAME WITH MORNING LABS, DR. ISRAEL HAS BEEN NOTIFIED OF POSSIBLE GI BLEED AND OF THE HGB DROP. NO OTHER INTERVENTIONS AT THIS TIME. POTASSIUM WAS 3.3 AND WILL BE REPLACED WITH 40 MEQ OF POTASSIUM. NO OTHER EVENTS TO REPORT OVERNIGHT. PLAN OF CARE CONTINUED.
[2024-03-09] MEDS ORDERED: Potassium Chloride 40 MEQ in NS 250 ML IV ONE (06:30)
[2024-03-09] MEDS ORDERED: Midodrine 5 MG Tab PT SCH (09:00)
--- NOTE | 2024-03-09 16:29 | NUR ---
UPDATE PT'S RYTHYM NOW APPEARS TO BE IN A SLOW AFIB AFTER 2ND DOSE OF MIDODRINE. PROVIDER AWARE AND DOES NOT WANT EKG TO CONFIRM RYTHYM AND WANTS TO CONTINUE W MIDODRINE ADMINSTRATION ORDERED. THIS RN ASKING PROVIDER ABOUT FOLLOW UP H&H LAB DRAWS AND NO NEW ORDERS AT THIS TIME. PT IS ALERT AND NODDING/SHAKING HIS HEAD TO ANSWER YES/NO QUESTIONS. FISHER LAMPARA NET DEBO NOTIFIED OF RYTHYM CHANGE.
--- NOTE | 2024-03-09 18:37 | NUR ---
DAY SHIFT SUMMARY PT REMAINS INTUBATED THIS SHIFT AND WAS PLACED ON PRESSURE SUPPORT FOR SEVERAL HOURS BEFORE HE BECAME TIRED AND WAS NOT ABLE TO ADEQUATELY VENTILATE TO WHICH HE WAS PLACED BACK ON AC/VC. MIDODRINE STARTED THIS SHIFT BUT PT REMAINS ON LEVOPHED 5-8 MCG/MIN. PT'S HR DROPPING THIS SHIFT LOW 45 EITHER SLOW AFIB OR SINUS ARRYTHMIA. PT AFEBRILE THIS SHIFT. PT HAS BEEN ALERT AND MAKING HIS NEEDS KNOWN W YES OR NO QUESTIONS THIS SHIFT. PT'S OSTOMY W 90ML BLACK LIQUID STOOL THIS SHIFT, PROVIDER AWARE AND NO REPEAT H&H ORDERED. PT STILL ON TRICKLE TUBE FEEDS THIS SHIFT TOLERATING WELL. WILL REPORT TO ONCOMING RN.
[2024-03-10] VITALS (98 sets, daily range): BP systolic 80–129; BP diastolic 52–89
[2024-03-10 06:07] LABS: BASOPHILS ABSOLUTE AUTO 0.01 K/mm3 (0.00-0.23); BASOPHILS PERCENT AUTO 0 % (0-2); EOSINOPHILS ABSOLUTE AUTO 0.93 K/mm3 (0.00-0.68); EOSINOPHILS PERCENT AUTO 6 % (0-6); Hematocrit 25.6 % (37.0-53.0); Hemoglobin 7.6 g/dL (13.5-17.5); IMMATURE GRAN ABSOLUTE AUTO 0.11 K/mm3 (0.00-0.10); IMMATURE GRAN PERCENT AUTO 1 % (0-1); LYMPHOCYTES ABSOLUTE AUTO 1.24 K/mm3 (0.84-5.20); LYMPHOCYTES PERCENT AUTO 8 % (21-46); MONOCYTES ABSOLUTE AUTO 1.05 K/mm3 (0.16-1.47); MONOCYTES PERCENT AUTO 7 % (4-13); Mean Corpuscular HGB 24.4 pg (26.0-34.0); Mean Corpuscular HGB Conc 29.7 g/dL (31.5-36.5); Mean Corpuscular Volume 82 fL (80-100); Mean Platelet Volume 9.7 fL (9.1-12.4); NEUTROPHILS ABSOLUTE AUTO 12.65 K/mm3 (1.96-9.15); NEUTROPHILS PERCENT AUTO 79 % (41-73); Platelet Count 357 K/mm3 (150-400); RDW Coefficient Variation 16.8 % (11.7-14.2); RDW Standard Deviation 48.4 fL (35.1-46.3); Red Blood Cell Count 3.11 M/mm3 (4.30-5.90); White Blood Cell Count 15.99 K/mm3 (4.00-11.30)
[2024-03-10 06:47] LABS: Anion Gap 11 mmol/L (3-11); Blood Urea Nitrogen 27 mg/dL (8-24); CO2, Blood 27 mmol/L (21-32); Calcium, Blood 7.9 mg/dL (8.5-10.1); Chloride, Blood 108 mmol/L (98-108); Glomerular Filtration Rate 83 (60-); Glucose, Blood 77 mg/dL (70-99); Phosphorus, Blood 2.4 mg/dL (2.5-4.9); Potassium, Blood 3.3 mmol/L (3.5-5.5); Sodium, Blood 143 mmol/L (136-145)
--- NOTE | 2024-03-10 07:30 | NUR ---
ASSUMPTION OF CARE: ASSUMED CARE OF PATIENT. PATIENT OPENS EYES TO VERBAL STIMULI. PATIENT VENTED AND SEDATED. VENT SETTINGS: AC/VC 16/500/7/30%. SPO2 100%. RR 16 AT THIS TIME. NO SIGNS OF RESPIRATORY DISTRESS. PROPOFOL AT 15 MCG/KG/MIN. LEVOPHED AT 5 MCG/MIN. HR IN THE HIGH 50S-LOW 60S. BLOOD PRESSURES STABLE WITH MAPS >65. SUPRAPUBIC CATH IN PLACE AND DRAINING FREELY LIGHT YELLOW URINE. TUBE FEED CONTINUES AT 10ML/HR WITH Q4HR FLUSHES. NO SIGNS OF PAIN OR DISCOMFORT AT THIS TIME.
[2024-03-10] MEDS ORDERED: Potassium Chloride 40 MEQ in NS 250 ML IV ONE (07:50)
--- NOTE | 2024-03-10 09:27 | NUR ---
SPONTANEOUS BREATHING TRAIL: SBT STARTED AT 09:13. PROPOFOL DECREASED TO 7 MCG/KG/MIN. SETTINGS 10/7/30%. SPO2 AT 99%. VOLUMES AROUND 400 AND RR AROUND 17.
--- NOTE | 2024-03-10 19:35 | NUR ---
SHIFT SUMMARY: NEURO: PATIENT ABLE TO MAKE NEEDS KNOWN AND USES SOFT TOUCH CALL BEAR APPROPRIATELY. PATIENT MEDICATED THROUGHOUT THE SHIFT FOR PAIN AND REPOSITIONED/GIVEN HEAT FOR COMFORT. PATIENT REPOSITIONED Q2HR. CARDIAC: PATIENT CONTINUED TO NEED LEVOPHED GTT TO MAINTAIN MAPS >65. ABLE TO TITRATE DOWN TO 3 MCG/MIN, BUT BY THE END OF THE SHIFT, PATIENT WAS BACK UP TO 5 MCG/MIN. PATIENT WAS HENRI AT TIMES WITH HR LOW 49. PATIENT DID NOT SUSTAIN THIS LOW HR. RESPIRATORY: PATIENT TOLERATED A SPONTANEOUS BREATHING TRIAL FROM ABOUT 09:15 - 1630. DURING SBT, SETTINGS 10/7/25%. ONCE BACK ON AC/VC PATIENT SETTINGS 16/500/7/25%. SPO2 >96%. GI/: OUTPUT FROM ILEOSTOMY WAS A VERY DARK COLOR TODAY. DR. TORRES AT BEDSIDE FOR A GI CONSULTATION. PATIENT HAD LOW URINE OUTPUT TODAY - DR. RICHARDS AWARE.
[2024-03-10] MEDS ORDERED: Arginine/Glutamine/Calcium Hmb 1 Packet PT SCH (21:00)
--- NOTE | 2024-03-10 21:12 | NUR ---
ASSUMED CARE PT APPEARS A&O X3; NODS/SHAKES HEAD APPROPRIATELY TO ORIENTATION QUESTION. IS SLOW TO NOD AT TIMES. PROPOFOL AND LEVOPHED INFUSING (SEE FLOWSHEET). PT DENIES PAIN AT THIS TIME, TOLERATED ORAL CARE WELL. RESTING QUIETLY AT THIS TIME.
--- NOTE | 2024-03-10 21:51 | NUR ---
UPDATE ILEOSTOMY HAD 50ML OF BROWN W/ GREEN TINT STOOL; LIQUID.
[2024-03-10] MEDS ORDERED: HYDROmorphone HCl/Pf 1MG SYR IV PRN (23:25)
[2024-03-11] VITALS (72 sets, daily range): BP systolic 79–124; BP diastolic 47–84
[2024-03-11 03:33] LABS: BASOPHILS ABSOLUTE AUTO 0.02 K/mm3 (0.00-0.23); BASOPHILS PERCENT AUTO 0 % (0-2); EOSINOPHILS ABSOLUTE AUTO 1.24 K/mm3 (0.00-0.68); EOSINOPHILS PERCENT AUTO 10 % (0-6); Hematocrit 25.4 % (37.0-53.0); Hemoglobin 7.5 g/dL (13.5-17.5); IMMATURE GRAN PERCENT AUTO 1 % (0-1); LYMPHOCYTES ABSOLUTE AUTO 1.17 K/mm3 (0.84-5.20); LYMPHOCYTES PERCENT AUTO 9 % (21-46); MONOCYTES PERCENT AUTO 9 % (4-13); Mean Corpuscular HGB 23.8 pg (26.0-34.0); Mean Corpuscular HGB Conc 29.5 g/dL (31.5-36.5); Mean Corpuscular Volume 81 fL (80-100); Mean Platelet Volume 9.8 fL (9.1-12.4); NEUTROPHILS ABSOLUTE AUTO 9.09 K/mm3 (1.96-9.15); NEUTROPHILS PERCENT AUTO 72 % (41-73); Platelet Count 344 K/mm3 (150-400); RDW Coefficient Variation 16.8 % (11.7-14.2); RDW Standard Deviation 47.8 fL (35.1-46.3); Red Blood Cell Count 3.15 M/mm3 (4.30-5.90); White Blood Cell Count 12.72 K/mm3 (4.00-11.30)
[2024-03-11 03:47] LABS: Calcium, Blood 7.5 mg/dL (8.5-10.1); Creatinine, Blood 0.88 mg/dL (0.60-1.20); Magnesium, Blood 1.3 mg/dL (1.6-2.4); Phosphorus, Blood 1.9 mg/dL (2.5-4.9); Potassium, Blood 3.5 mmol/L (3.5-5.5)
[2024-03-11] MEDS ORDERED: Mag Sulfate 1 GM/D5% 100ML 100 ML IV STA (04:32)
[2024-03-11] MEDS ORDERED: Potassium Phosphate Dibasic 30 MM in Dextrose 5% 500 ML IV ONE (05:30)
--- NOTE | 2024-03-11 05:59 | NUR ---
SHIFT SUMMARY PT AWAKE AND WATCHING TV AT THIS TIME, NODDING/SHAKING HEAD TO QUESTIONS. COMFORTABLE AT THIS TIME AND DENIES PAIN. LEVOPHED AT 7MCG/MIN (UP FROM 5MCG/MIN) AND PROPOFOL UNCHANGED AT 15 MCG/KG/MIN. ILEOSTOMY PRODUCED LIQUID BROWN/GREEN T/O NIGHT AND THIS AM LIQUID BROWN STOOL. NO ACUTE EVENTS OVERNIGHT.
[2024-03-11 07:54] LABS: PCO2 Arterial 33.3 mmHg (35-45); PO2 Arterial 81.4 mmHg (80-100); pH Blood Arterial 7.53 (7.35-7.45)
[2024-03-11] MEDS ORDERED: CALCIUM GLUC IN NACL, ISO-OSM 50 ML IV ONE (08:10)
[2024-03-11 12:52] LABS: Magnesium, Blood 1.4 mg/dL (1.6-2.4); Phosphorus, Blood 3.7 mg/dL (2.5-4.9)
--- NOTE | 2024-03-11 15:48 | NUR ---
Spiritual care visit conducted. Patient is lying in bed and alert. He acknowledges that today was a rough day, that he is afraid of dying and that he is concerned about the downward spiral of his health. I provided gentle deputy chief counsel and prayer. Patient responded well to the prayer and attempted to voice a "thank you." His spirits were lifted only slightly and admittedly the communication is challenging even without him being intubated. We will continue to work to find ways to communicate and remove barriers for understnding what the patient medical and life goals are.
--- NOTE | 2024-03-11 19:07 | NUR ---
Summary. Assumed care of patient at approximately 1530, no acute events since that time, see chart for further details.
--- NOTE | 2024-03-11 21:52 | NUR ---
THIS RN ASSUMED CARE OF PT AT 1900. PT IS ALERT TO SELF, ABLE TO ANSWER TO YES/NO QUESTIONS, FOLLOWS COMMANDS ON THE RIGHT UPPER EXTREMITY ONLY. PT IS CONTRACTURED IN THE LEFT UPPER EXTREMITY AND FLACCID IN THE BILATERAL LOWER EXTREMITIES. PT HEART RATE IS IN SINUS RHYTHM, SINUS TACH IN THE 90-100s, BLOOD PRESSURE A LITTLE SOFT AT 96/64 BUT MAP >65, PT DENIES CHEST PAIN. PT IS VENTILATED ON SPONTANEOUS SATTING >95%, PT DENIES SHORTNESS OF BREATHE. PT IS ALSO ON NO SEDATION. PT HAS AN ILLEOSTOMY THAT IS DRAINING TO GRAVITY AND A SUPRAPUBIC CATHETER DRAINING TO GRAVITY. CENTRAL LINE IN THE RIGHT SUBCLAVIAN IS CLEAN, DRY AND INTACT. NO OTHER INTERVENTIONS AT THIS TIME. PLAN OF CARE CONTINUED.
[2024-03-12] VITALS (19 sets, daily range): BP systolic 87–109; BP diastolic 52–64
[2024-03-12 03:41] LABS: BASOPHILS ABSOLUTE AUTO 0.01 K/mm3 (0.00-0.23); BASOPHILS PERCENT AUTO 0 % (0-2); EOSINOPHILS ABSOLUTE AUTO 0.97 K/mm3 (0.00-0.68); EOSINOPHILS PERCENT AUTO 9 % (0-6); Hematocrit 24.1 % (37.0-53.0); Hemoglobin 7.1 g/dL (13.5-17.5); IMMATURE GRAN PERCENT AUTO 1 % (0-1); LYMPHOCYTES ABSOLUTE AUTO 1.19 K/mm3 (0.84-5.20); LYMPHOCYTES PERCENT AUTO 11 % (21-46); MONOCYTES ABSOLUTE AUTO 1.04 K/mm3 (0.16-1.47); MONOCYTES PERCENT AUTO 9 % (4-13); Mean Corpuscular HGB 24.1 pg (26.0-34.0); Mean Corpuscular HGB Conc 29.5 g/dL (31.5-36.5); Mean Corpuscular Volume 82 fL (80-100); Mean Platelet Volume 9.8 fL (9.1-12.4); NEUTROPHILS ABSOLUTE AUTO 7.87 K/mm3 (1.96-9.15); NEUTROPHILS PERCENT AUTO 70 % (41-73); Platelet Count 288 K/mm3 (150-400); RDW Coefficient Variation 16.9 % (11.7-14.2); Red Blood Cell Count 2.95 M/mm3 (4.30-5.90); White Blood Cell Count 11.18 K/mm3 (4.00-11.30)
[2024-03-12 04:05] LABS: Magnesium, Blood 1.1 mg/dL (1.6-2.4)
[2024-03-12 04:06] LABS: Bun/Creatinine Ratio 48.5 (12.0-20.0); Calcium, Blood 7.3 mg/dL (8.5-10.1); Creatinine, Blood 0.74 mg/dL (0.60-1.20); Phosphorus, Blood 2.3 mg/dL (2.5-4.9); Potassium, Blood 3.4 mmol/L (3.5-5.5)
[2024-03-12] MEDS ORDERED: Magnesium Sulf 2 GM/Water 50ML 50 ML IV ONE (04:45)
[2024-03-12] MEDS ORDERED: Potassium Phosphate Dibasic 30 MM in Dextrose 5% 500 ML IV ONE (05:30)
--- NOTE | 2024-03-12 05:40 | NUR ---
PT SUMMARY PT DID BECOME TIRED AND PT STATED THEY WANTED TO BE PUT BACK ON FULL SUPPORT ON THE VENTILATOR. PT ALSO HAD A CRITICAL LAB OF 1.1 MAGNESIUM. WAS NOTIFIED AND NEW ORDERS PLACED. NO OTHER ACUTE EVENTS TO REPORT OVERNIGHT. PLAN OF CARE CONTINUED.
[2024-03-12] MEDS ORDERED: CALCIUM GLUC IN NACL, ISO-OSM 100 ML IV ONE (10:00)
--- NOTE | 2024-03-12 11:02 | NUR ---
PATIENT EXTUBATED AT 1044. OG TUBE REMOVED WELL. NPO STATUS. 2LNC APPLIED.
[2024-03-12 13:38] LABS: Hematocrit 28.6 % (37.0-53.0); Hemoglobin 8.4 g/dL (13.5-17.5)
--- NOTE | 2024-03-12 14:51 | NUR ---
Attempted to call pt's cousin Mariel, provided update. Mariel states she's glad the patient is agreeable to a feeding tube, and also glad no trach for now, as a trach would keep him from being able to return to [facility]. As of now, the patient is still agreeable to a PEG tube. He has a history of changing his mind frequently regarding both the PEG tube and trach. Will continue to follow.
--- NOTE | 2024-03-12 20:37 | NUR ---
ASSESSMENT/ASSUMED CARE PT SITTING UP IN BED TALKING TO CRAIG CLANCY WHILE HAVING AN IV PLACED. PT AWAKE, A&O. SPEECH SLOW. ABLE TO MOVE RIGHT HAND HALF WAY TO FACE. LEFT SIDE FLACCID. SLIGHT MOVEMENT TO RIGHT TOES. BILAT FOOT DROP BOOTS ON. LUNGS CLEAR BUT DECREASED ON ROOMAIR. SPO2 99%. RESP EVEN AND NONLABORED. PRODUCTIVE COUGH WITH MODERATED AMT THIM WHITE SPUTUM, RN SUCTIONING MOUTH. HEART RATE REGULAR IN THE 100'S. BP STABLE. PT TO RECEIVE MIDODRINE TONIGHT. BT+ ABD SOFT AND NONTENDER. DOBBHOFF TO NARE AT 63 CM WITH TUBE FEED PIVOT 1.5 AT GOAL RATE 60 ML/HR WITH WATER AT 30 ML Q4HR. OSTOMY APPLIANCE INTACT. STOMA PINK. DRAINING LIGHT BROWN LIQUID STOOL. SUPRAPUBIC CATH DRAINING YELLOW URINE WITH SEDIMENT. IV 20G TO RIGHT FOREARM WITH NS AT 10 ML/HR FOR ANTIBOTICS. SITE CLEAR. CRAIG PLACED 20G TO LEFT FOREARM WITH ULTRASOUND. BILAT FOOT DROP BOOTS ON. DRSG TO COCCYX INTACT. REPOSITIONED AND ORAL CARE DONE. WILL MED FOR PAIN 8/10 "ALL OVER" PER EMAR. DRSG TO RIGHT CHEST WALL FROM CENTRAL LINE, CD&I.
[2024-03-12] MEDS ORDERED: HYDROmorphone HCl/Pf 1MG SYR IV PRN (23:20)
[2024-03-13] VITALS (37 sets, daily range): BP systolic 80–117; BP diastolic 50–78
[2024-03-13] MEDS ORDERED: Methadone HCL 10 MG TAB PT SCH (00:25)
[2024-03-13] MEDS ORDERED: Methadone HCL 5 MG TAB PT SCH (00:29)
--- NOTE | 2024-03-13 00:47 | NUR ---
PAIN PT CRYING OUT IN PAIN, ASKING FOR METHADONE. CALL OUT TO DR WARE. SEE NEW ORDER. METHADONE GIVEN VIA DOBHOFF
--- NOTE | 2024-03-13 01:13 | NUR ---
TUBE FEED STOPPED TUBE FEED FORMULA. CONTINUE WATER FLUSHES PER DR BRIAN VALLEJO
[2024-03-13 03:36] LABS: BASOPHILS ABSOLUTE AUTO 0.02 K/mm3 (0.00-0.23); BASOPHILS PERCENT AUTO 0 % (0-2); EOSINOPHILS ABSOLUTE AUTO 1.02 K/mm3 (0.00-0.68); EOSINOPHILS PERCENT AUTO 7 % (0-6); Hematocrit 26.3 % (37.0-53.0); Hemoglobin 7.6 g/dL (13.5-17.5); IMMATURE GRAN ABSOLUTE AUTO 0.16 K/mm3 (0.00-0.10); IMMATURE GRAN PERCENT AUTO 1 % (0-1); LYMPHOCYTES ABSOLUTE AUTO 1.69 K/mm3 (0.84-5.20); LYMPHOCYTES PERCENT AUTO 12 % (21-46); MONOCYTES ABSOLUTE AUTO 1.64 K/mm3 (0.16-1.47); MONOCYTES PERCENT AUTO 12 % (4-13); Mean Corpuscular HGB 24.1 pg (26.0-34.0); Mean Corpuscular HGB Conc 28.9 g/dL (31.5-36.5); Mean Corpuscular Volume 84 fL (80-100); NEUTROPHILS ABSOLUTE AUTO 9.67 K/mm3 (1.96-9.15); NEUTROPHILS PERCENT AUTO 68 % (41-73); Platelet Count 330 K/mm3 (150-400); RDW Coefficient Variation 17.2 % (11.7-14.2); RDW Standard Deviation 50.1 fL (35.1-46.3); Red Blood Cell Count 3.15 M/mm3 (4.30-5.90)
[2024-03-13 04:01] LABS: Bun/Creatinine Ratio 51.8 (12.0-20.0); Creatinine, Blood 0.66 mg/dL (0.60-1.20); Potassium, Blood 3.7 mmol/L (3.5-5.5)
[2024-03-13] MEDS ORDERED: ePHEDrine Sulfate 50 MG/ML 1ML Injection IV ONE (04:10)
[2024-03-13] MEDS ORDERED: Glycopyrrolate 0.2 MG/ML 5ML VIAL IV ONE (04:10)
[2024-03-13] MEDS ORDERED: Propofol 10mg/ml 20 ml Vial (Procedural) IV ONE (04:10)
[2024-03-13] MEDS ORDERED: Phenylephrine HCl 100 MCG/ML-NS 10MLSYR (1MG/10ML) IV ONE (04:10)
--- NOTE | 2024-03-13 06:07 | NUR ---
SHIFT SUMMARY PT AWAKE MOST OF THE NIGHT. TURNING Q2HRS. PT MED WITH DILAUDID AND METHADONE FOR PAIN WITH GOOD RESULTS. TUBE FEED FORMULA STOPPED AT [address] TORRES. CONTINUED WITH H2O FLUSHES Q4HR UNTIL 1100. POSSIBLE PEG TUBE PLACEMENT TODAY. ILEOSTOMY DRAINING LIQUID STOOL. DOBHOFF AT 63 CM. VSS. REPORT TO ON COMING NURSE
[2024-03-13] MEDS ORDERED: Calcium Chloride 10% 2,000 MG in NS 100 ML IV ONE (07:50)
--- NOTE | 2024-03-13 08:45 | NUR ---
AM NOTE: PATIENT ALERT AND ORIENTED. ABLE TO MAKE NEEDS KNOWN. USING SOFT TOUCH CALL LIGHT. HISTORY OF MS, ONLY ABLE TO MOVE RIGHT UPPER EXTREMITY WITH LIMITED ROM. FLACCID ON LEFT SIDE AND RLE. BED BOUND. Q2 TURNS AND USING LIFT NEEDED. TELE SHOWING SINUS TACH WITH HR 100'S. DENIES CHEST PAIN/PRESSURE/PALPITATIONS. SBP 100-110'S. PO MIDODRINE GIVEN THIS AM. EDEMA NOTED THROUGHOUT. SCD'S IN PLACE. ON ROOM AIR SATING ABOVE 95%. LUNG SOUNDS CLEAR AND DIMINISHED IN BASES. DENIES SOB. EVEN AND UNLABORED RESPIRTATIONS. OCCASIONAL COUGH WITH SPUTUM PRODUCTION. SUCTION AT BEDSIDE. BOWEL TONES PRESENT THROUGHOUT. DOBHOFF AT MARKED AT NARES AT 63. TUBE FEEDING ON HOLD AT THIS TIME. FLUSHES TO BE PLACED ON HOLD AT [address] TORRES ORDER. Q4 ORAL CARE AND NEEDED. PLAN FOR PEG TUBE PLACEMENT TODAY. PATIENT DENIES ABDOMINAL PAIN/NAUSEA. ILEOSTOMY IN PLACE DRAINING SOFT/LIQUID/BROWN OUTPUT. SP CATH IN PLACE DRAINING CLEAR/YELLOW URINE. CATH CARE COMPLETED THIS AM WITH BEDBATH. Q6 BLOOD SUGARS. PRESSURE WOUND ON COCCYX, DRESSING CHANGED THIS AM, Q2 TURNING AND NEEDED. BLE SCABBING, DRY SKIN AND WEEPING. SCD'S IN PLACE WELL FOOT DROP BOOTS. DR. PFEIFFER AT BEDSIDE THIS AM. NO NEW ORDERS FOR THIS RN TO PLACE.
--- NOTE | 2024-03-13 11:03 | NUR ---
DOBHOFF FLUSHES PLACED ON HOLD AT THIS TIME.
[2024-03-13 11:37] LABS: Magnesium, Blood 1.8 mg/dL (1.6-2.4); Phosphorus, Blood 2.6 mg/dL (2.5-4.9)
[2024-03-13] MEDS ORDERED: Lactated Ringer's 1,000 ML IV SCH (14:35)
[2024-03-13] MEDS ORDERED: CeFAZolin Sodium 2,000 MG in NS 100 ML IV SCH (15:15)
--- NOTE | 2024-03-13 15:53 | NUR ---
03/13/24 1553 Greta Humphries MONITOR INTACT WITH CONTINUOUS PULSE OXIMETRY, CONTINUOUS END TITAL CO2, AND INTERMITTENT BLOOD PRESSURE.3-LEAD EKG REVIEWED WITH PHYSICIAN PRIOR TO START OF PROCEDURE.O2 VIA POM INTACT THROUGHOUT SEDATION/PROCEDURE.Bite Block Placed. DR. LENZ PROVIDING MAC-SEE ANESTHESIA RECORD.
--- NOTE | 2024-03-13 15:59 | NUR ---
PATIENT IN EGD AT THIS TIME.
--- NOTE | 2024-03-13 17:14 | NUR ---
EGD AND PEG TUBE PLACEMENT COMPLETE. CONTINUE TO HOLD FEEDS AT THIS TIME. POSSIBLE RESTART OF FEEDS TOMORROW MORNING PER DR. TORRES. POST VITALS STABLE AND IN PROGRESS. DOBHOFF REMOVED DURING EGD AND PEG TUBE PROCEDURE. PATIENT AWAKE, ALERT AND ABLE TO MAKE NEEDS KNOWN. REMAINS ON ROOM AIR SATING ABOVE 95%. TELE SHOWING SR WITH HR 90'S. PATIENT DENIES PAIN AT THIS TIME. SCD'S IN PLACE. Q2 TURNING AND NEEDED. Q6 BLOOD SUGARS. IV ABX INFUSED THIS SHIFT. PATIENT WATCHING TV AND RESTING IN BED AT THIS TIME. SOFT TOUCH CALL LIGHT IN REACH. PATIENT PCU STATUS.
[2024-03-14] VITALS (33 sets, daily range): BP systolic 84–112; BP diastolic 47–77
[2024-03-14] MEDS ORDERED: Dextrose 50% 50 ML Vial IV ONE ×3 (01:15→13:55)
--- NOTE | 2024-03-14 01:59 | NUR ---
ASSUMPTION OF CARE PT LYING IN BED SLEEPING. REPORT RECEIVED FROM LEONARDO CLANCY. PT ALERT AND ORIENTED. PT ONLY MOVES RIGHT ARM, OTHER LIMBS NOT USABLE S/P CVA AND LONG-STANDING MULTIPLE SCLEROSIS. CN REFLEXES INTACT. SINUS TACHYCARDIC WITH SOFT BPS. WILL MONITOR IN LIGHT OF NO MIDODRINE ADMINISTRATION TONIGHTNOR OTHER PT INTAKE, DUE TO NO ACCESS THROUGH PEG TUBE UNTIL 03/14/24 MORNING. RESPIRATIONS REGULAR AND UNLABORED WITH >95% SATURATIONS. NO C/O CHEST PAIN PRESSURE OR SOB. NEWLY PLACED PEG TUBE COVERED IN GAUZE AND TAPE WHICH ARE CLEAN AND DRY. ILEOSTOMY IN PLACE DRAINING BROWN LIQUID MIXED WITH SOLID FECAL PARTICLES/KEIRY WELL SUPRAPUBIC CATHETER DRAINING YELLOW URINE TO A CLEARY. PT SALINE LOCKED CATHETER COLLECTION BAG. PT HAS SOFT TOUCH CALL LIGHT ON HIS LAP.
[2024-03-14 03:38] LABS: BASOPHILS ABSOLUTE AUTO 0.03 K/mm3 (0.00-0.23); BASOPHILS PERCENT AUTO 0 % (0-2); EOSINOPHILS ABSOLUTE AUTO 0.66 K/mm3 (0.00-0.68); EOSINOPHILS PERCENT AUTO 7 % (0-6); Hematocrit 25.6 % (37.0-53.0); Hemoglobin 7.3 g/dL (13.5-17.5); IMMATURE GRAN ABSOLUTE AUTO 0.04 K/mm3 (0.00-0.10); IMMATURE GRAN PERCENT AUTO 0 % (0-1); LYMPHOCYTES ABSOLUTE AUTO 1.23 K/mm3 (0.84-5.20); LYMPHOCYTES PERCENT AUTO 14 % (21-46); MONOCYTES ABSOLUTE AUTO 0.98 K/mm3 (0.16-1.47); MONOCYTES PERCENT AUTO 11 % (4-13); Mean Corpuscular HGB 24.1 pg (26.0-34.0); Mean Corpuscular HGB Conc 28.5 g/dL (31.5-36.5); Mean Corpuscular Volume 85 fL (80-100); Mean Platelet Volume 9.7 fL (9.1-12.4); NEUTROPHILS ABSOLUTE AUTO 5.98 K/mm3 (1.96-9.15); NEUTROPHILS PERCENT AUTO 67 % (41-73); Platelet Count 369 K/mm3 (150-400); RDW Coefficient Variation 17.4 % (11.7-14.2); RDW Standard Deviation 52.4 fL (35.1-46.3); Red Blood Cell Count 3.03 M/mm3 (4.30-5.90); White Blood Cell Count 8.92 K/mm3 (4.00-11.30)
[2024-03-14 04:04] LABS: Bun/Creatinine Ratio 47.5 (12.0-20.0); Calcium, Blood 9.1 mg/dL (8.5-10.1); Creatinine, Blood 0.63 mg/dL (0.60-1.20); Magnesium, Blood 1.9 mg/dL (1.6-2.4); Phosphorus, Blood 2.9 mg/dL (2.5-4.9); Potassium, Blood 3.6 mmol/L (3.5-5.5)
[2024-03-14] MEDS ORDERED: Dextrose 50% 50 ML Syringe IV ONE (06:10)
--- NOTE | 2024-03-14 06:50 | NUR ---
PT LYING IN BED. PT ALERT AND ORIENTED. PT ONLY MOVES RIGHT ARM, OTHER LIMBS NOT USABLE S/P CVA AND LONG-STANDING MULTIPLE SCLEROSIS. CN REFLEXES INTACT. SINUS TACHYCARDIC VS NSR, HR 90-110. SOFT TO NORMAL BPS. PT MISSED LAST TWO DOSES OF MIDODRINE DUE TO NO ACCESS THAT SHOULD BE AVAILABLE THIS MORNING. RESPIRATIONS REGULAR AND UNLABORED WITH >95% SATURATIONS. NO C/O CHEST PAIN PRESSURE OR SOB. NEWLY PLACED PEG TUBE COVERED IN GAUZE AND TAPE WHICH ARE CLEAN AND DRY. ILEOSTOMY IN PLACE DRAINING BROWN LIQUID MIXED WITH SOLID FECAL PARTICLES/KEIRY WELL SUPRAPUBIC CATHETER DRAINING YELLOW URINE TO A CLEARY. PT SALINE LOCKED CATHETER COLLECTION BAG. PT HAD TWO POC GLUCOSE RADINGS IN THE 60'S, BOTH TREATED WITH 25ML OF 50% DEXTROSE. ASYMPTOMATIC. PT HAS SOFT TOUCH CALL LIGHT AND KNOWS HOW TO USE IT. ON HIS LAP.
--- NOTE | 2024-03-14 18:28 | NUR ---
SHIFT SUMMARY: PT HAS BEEN A&Ox4, COOPERATIVE W/CARE, ABLE TO MAKE NEEDS KNOWN. NO ACUTE CHANGES TO EXTREMITIES, LUE AND BLE CONTINUE FLACCID AND RUE W/MINIMAL MOVEMENT (SOFT TOUCH LIGHT W/IN REACH OF R HAND). PT DENIES SOB, O2 SATS >93% ON RA. PT DENIES CHEST PAIN/PRESSURE, SOFT BPs CONTINUE, MIDODRINE RESTARTED, MAPs >65. EDEMA TO ALL EXTREMITIES. PEG TUBE WAS CLEARED FOR USE, FEEDINGS INITIATED APPROX 1255, PT TOLERATING WELL, MEDICATED W/ONE DOSE OF D50% PER EMAR FOR GLUCOSE WHILE WAITING FOR FEEDINGS TO BECOME THERAPEUTIC. SUPRAPUBIC CATHETER PATENT, CATHETER CARE PERFORMED THIS SHIFT. ILEOSTOMY PATENT, BURPED T/OUT THE DAY AND DRAINED x1 THIS SHIFT. WOUND CARE AND NEW DRESSINGS TO COCCYX. Q2H TURNS, SCDs, FOOT DROP BOOTS ARE ALL IN PLACE. PT RESTING QUIETLY IN ROOM W/SOFT TOUCH LIGHT IN REACH.
[2024-03-15] VITALS (32 sets, daily range): BP systolic 84–113; BP diastolic 55–80
[2024-03-15 04:23] LABS: BASOPHILS ABSOLUTE AUTO 0.03 K/mm3 (0.00-0.23); BASOPHILS PERCENT AUTO 0 % (0-2); EOSINOPHILS ABSOLUTE AUTO 0.68 K/mm3 (0.00-0.68); EOSINOPHILS PERCENT AUTO 7 % (0-6); Hematocrit 27.5 % (37.0-53.0); Hemoglobin 7.9 g/dL (13.5-17.5); IMMATURE GRAN ABSOLUTE AUTO 0.07 K/mm3 (0.00-0.10); IMMATURE GRAN PERCENT AUTO 1 % (0-1); LYMPHOCYTES ABSOLUTE AUTO 1.35 K/mm3 (0.84-5.20); LYMPHOCYTES PERCENT AUTO 14 % (21-46); MONOCYTES PERCENT AUTO 13 % (4-13); Mean Corpuscular HGB 23.7 pg (26.0-34.0); Mean Corpuscular HGB Conc 28.7 g/dL (31.5-36.5); Mean Corpuscular Volume 83 fL (80-100); Mean Platelet Volume 9.7 fL (9.1-12.4); NEUTROPHILS ABSOLUTE AUTO 6.16 K/mm3 (1.96-9.15); NEUTROPHILS PERCENT AUTO 65 % (41-73); Platelet Count 452 K/mm3 (150-400); RDW Coefficient Variation 17.5 % (11.7-14.2); RDW Standard Deviation 51.8 fL (35.1-46.3); Red Blood Cell Count 3.33 M/mm3 (4.30-5.90); White Blood Cell Count 9.49 K/mm3 (4.00-11.30)
[2024-03-15 04:46] LABS: Albumin, Blood 1.7 g/dL (3.4-5.0); Albumin/Globulin Ratio 0.5 (0.8-1.8); Bilirubin, Total 0.3 mg/dL (0.1-1.0); Bun/Creatinine Ratio 45.3 (12.0-20.0); Calcium, Blood 8.9 mg/dL (8.5-10.1); Creatinine, Blood 0.73 mg/dL (0.60-1.20); Globulin, Blood 3.4 g/dL (2.2-4.0); Magnesium, Blood 1.8 mg/dL (1.6-2.4); Phosphorus, Blood 2.7 mg/dL (2.5-4.9); Potassium, Blood 3.6 mmol/L (3.5-5.5); Total Protein, Blood 5.1 g/dL (6.4-8.2)
[2024-03-15] MEDS ORDERED: Sodium Chloride 0.45% 1,000 ML IV SCH (05:15)
[2024-03-15] MEDS ORDERED: Lansoprazole 15 MG TAB.RAP.DR PT SCH (06:00)
--- NOTE | 2024-03-15 06:37 | NUR ---
END OF SHIFT SUMMARY NO ACUTE EVENTS OVERNIGHT. PT ALERT AND USING EASY TOUCH CALL LIGHT TO MAKE NEEDS KNOWN. LUNG SOUNDS CLEAR, PT ON ROOM AIR WITH O2 SATS>92%. NSR ON OYSTER FARMER, RATE OF 90-100S. BP SOFT- MIDODRINE RESTARTED DURING SHIFT. PT TUBE FEEDING INCREASED TO GOAL RATE OF 60ML/HR. PT TOLERATING WELL. ILLEOSTOMY BURPED FREQUENTLY T/O SHIFT. MINIMAL URINE OUTPUT VIA SUPRAPUBIC CATH- PROVIDER UPDATED AND 1/2 NS INFUSION STARTED AT 75ML/HR. PT AFEBRILE. TURNED Q2 HOURS. PLAN OF CARE ONGOING.
[2024-03-15] MEDS ORDERED: Acetaminophen 650 MG Supp PR PRN (08:10)
[2024-03-15] MEDS ORDERED: Ondansetron 4 MG SoluTab MM PRN (08:10)
[2024-03-15] MEDS ORDERED: Bisacodyl 10 MG Supp PR PRN (08:10)
[2024-03-15] MEDS ORDERED: Atropine Sulfate 1% Opth Soln 2ML BTL SL PRN (08:10)
[2024-03-15] MEDS ORDERED: DiphenhydrAMINE HCL 25 MG Cap PO PRN (08:10)
[2024-03-15] MEDS ORDERED: Hyoscyamine Sulfate 0.125 MG Tab PO PRN (08:10)
[2024-03-15] MEDS ORDERED: Dextrose 5% 500 ML IV SCH ×2 (08:15→08:45)
[2024-03-15] MEDS ORDERED: HYDROmorphone HCl 2 MG Tab PT PRN (08:15)
[2024-03-15] MEDS ORDERED: Midodrine 5 MG Tab PT SCH (09:00)
--- NOTE | 2024-03-15 09:58 | NUR ---
ASSUMPTION OF CARE: ASSUMED CARE OF PT AT 0715. PT ALERT AND ORIENTED X4. VERY SOFT SPOKEN AND HARD TO UNDERSTAND AT TIMES. PT ON RA WITH SPO2 MID TO HIGH 90'S. DENIES SOB. 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 SBP 100'S. MAP >65. DENIES CP. TUBE FEED INFUSING AT GOAL THROUGH PEG TUBE. SUPRAPUBIC CATH IN PLACE, DRAINING TO GRAVITY HARI COLORED URINE. ILEOSTOMY INTACT. PIV TO LFA PATENT AND INFUSING D5 AT 100 ML/HR. BED LOW AND LOCKED, CALL LIGHT IN REACH.
[2024-03-15 16:03] LABS: Bun/Creatinine Ratio 49.8 (12.0-20.0); Calcium, Blood 8.7 mg/dL (8.5-10.1); Creatinine, Blood 0.86 mg/dL (0.60-1.20); Potassium, Blood 3.6 mmol/L (3.5-5.5)
--- NOTE | 2024-03-15 17:57 | NUR ---
SHIFT SUMMARY: NO ACUTE EVENTS THIS SHIFT. PT REMAINED ALERT AND ORIENTED. ON RA T/O THE SHIFT WITH SPO2 MID TO HIGH 90'S. DENIES SOB T/O THE SHIFT. SALINE LOCKED, POWERGLIDE PLACED TO DEVI PER PT. REQUEST. PT VERY EDEMATOUS T/O THE UPPER AND LOWER EXTREMETIES. PAINFUL TO MOVE, MEDICATED PER EMAR. 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 SBP 90-100 WITH MAP >65. DENIES CP/PRESSURE. TUBE FEED REMAINS AT GOAL THROUGH PEG TUBE. ILEOSTOMY PUT OUT MODERATE AMOUNT OF LIQUID THIS SHIFT. SUPRAPUBIC CATH HAD MINIMAL OUTPUT, LEAKS AROUND INSERTION SITE. BED LOW AND LOCKED, CALL LIGHT IN REACH.
[2024-03-16] VITALS (21 sets, daily range): BP systolic 95–114; BP diastolic 58–78
[2024-03-16 04:30] LABS: BASOPHILS ABSOLUTE AUTO 0.02 K/mm3 (0.00-0.23); BASOPHILS PERCENT AUTO 0 % (0-2); EOSINOPHILS ABSOLUTE AUTO 0.44 K/mm3 (0.00-0.68); EOSINOPHILS PERCENT AUTO 4 % (0-6); Hematocrit 25.1 % (37.0-53.0); Hemoglobin 7.4 g/dL (13.5-17.5); IMMATURE GRAN ABSOLUTE AUTO 0.12 K/mm3 (0.00-0.10); IMMATURE GRAN PERCENT AUTO 1 % (0-1); LYMPHOCYTES ABSOLUTE AUTO 1.11 K/mm3 (0.84-5.20); LYMPHOCYTES PERCENT AUTO 10 % (21-46); MONOCYTES ABSOLUTE AUTO 1.02 K/mm3 (0.16-1.47); MONOCYTES PERCENT AUTO 9 % (4-13); Mean Corpuscular HGB 23.9 pg (26.0-34.0); Mean Corpuscular HGB Conc 29.5 g/dL (31.5-36.5); Mean Corpuscular Volume 81 fL (80-100); Mean Platelet Volume 9.6 fL (9.1-12.4); NEUTROPHILS ABSOLUTE AUTO 8.66 K/mm3 (1.96-9.15); NEUTROPHILS PERCENT AUTO 76 % (41-73); Platelet Count 438 K/mm3 (150-400); RDW Coefficient Variation 17.3 % (11.7-14.2); RDW Standard Deviation 50.5 fL (35.1-46.3); White Blood Cell Count 11.37 K/mm3 (4.00-11.30)
[2024-03-16 04:49] LABS: Bun/Creatinine Ratio 58.6 (12.0-20.0); Calcium, Blood 8.7 mg/dL (8.5-10.1); Creatinine, Blood 0.73 mg/dL (0.60-1.20); Potassium, Blood 3.6 mmol/L (3.5-5.5)
--- NOTE | 2024-03-16 05:45 | NUR ---
SHIFT SUMMARY NO ACUTE EVENTS. PT MEDICATED FOR PAIN W/ PRN DILAUDID. TURNED Q2HRS AND ON REQUEST- FAVORS R. SIDE. PT SUPRAPUBIC CATHETHER LEAKING AND REPLACED W/ 18FR 30ML BALLOON, PT TOLERATED WELL. TUBE FEEDINGS CONTINUE AT GOAL RATE OF 60ML/HR. DRESSINGS TO PT COCCYX WOUND AND BED LINENS CHANGED. A FEBRILE. ORAL CARE PEFORMED FREQUENTLY PER PT REQUEST. PT USING CALL LIGHT APPROPRIATELY. PLAN OF CARE ONGOING.
[2024-03-16 08:04] LABS: Percent Saturation 9.3 % (20.0-50.0)
[2024-03-16] MEDS ORDERED: Midodrine 5 MG Tab PO PRN (10:15)
[2024-03-16] MEDS ORDERED: Iron Dextran 50 MG / ML 2ML Vial IV ONE (10:35)
[2024-03-16] MEDS ORDERED: Iron Dextran 975 MG in NS 250 ML IV ONE (12:00)
[2024-03-16] MEDS ORDERED: Midodrine 2.5 MG Tab PO PRN (13:45)
--- NOTE | 2024-03-16 21:03 | NUR ---
ASSUMED CARE OF PT AT 1900 PT RESTING ON BED WATCHING TV. PT AOX4 AND PLEASANT AND COOPERATIVE W/ CARE. REQUESTS ORAL CARE. PERFORMED AND MOUTH MOISTURIZER/ CHAP STICK APPLIED. PT DECLINES TURN AT THIS TIME AND STS HE PREFERS R. SIDE- WILL REVISIT AT LATER TIME. VSS. TF RUNNING AT GOAL W/ OUT ISSUE. SUPRAPUBIC CATH PATENT AND DRAINING TO GRAVITY. PT AFEBRILE. SOFT TOUCH CALL LIGHT W/ IN REACH, PT DENIES FURTHER NEEDS AT THIS TIME. PLAN OF CARE ONGOING.
[2024-03-17] VITALS (12 sets, daily range): BP systolic 87–118; BP diastolic 56–76
[2024-03-17 04:12] LABS: Hematocrit 24.7 % (37.0-53.0); Hemoglobin 7.2 g/dL (13.5-17.5); Mean Corpuscular HGB Conc 29.1 g/dL (31.5-36.5); Mean Corpuscular Volume 82 fL (80-100); Mean Platelet Volume 9.6 fL (9.1-12.4); Platelet Count 434 K/mm3 (150-400); RDW Coefficient Variation 17.2 % (11.7-14.2); RDW Standard Deviation 50.6 fL (35.1-46.3); White Blood Cell Count 8.98 K/mm3 (4.00-11.30)
[2024-03-17 04:33] LABS: Calcium, Blood 8.6 mg/dL (8.5-10.1); Creatinine, Blood 0.63 mg/dL (0.60-1.20); Potassium, Blood 3.6 mmol/L (3.5-5.5)
--- NOTE | 2024-03-17 06:19 | NUR ---
SHIFT SUMMARY NO ACUTE EVENTS OVERNIGHT. PT USED CALL LIGHT APPROPRIATELY FOR NEEDS. VSS. REMAINS ON ROOM AIR W/ CLEAR LUNG SOUNDS. AFEBRILE. TF RUNNING AT GOAL OF 60ML/HR, TOLERATING WELL. PEG TUBE DRESSING C/D/I. GOOD OUTPUT VIA ILLEOSTOMY. PT AFEBRILE. PT TREATED W/ PRN DILAUDID FOR CHRONIC BACK PAIN. SUPRAPUBIC CATH PATENT AND DRAINING TO GRAVITY. PLAN OF CARE ONGOING.
[2024-03-17] MEDS ORDERED: Potassium Chloride 20 MEQ/15 ML UDC PO ONE (07:30)
[2024-03-17] MEDS ORDERED: Dextrose 5% 1,000 ML IV SCH (08:00)
[2024-03-17] MEDS ORDERED: Apixaban 5 MG Tab PO SCH (09:00)
[2024-03-17] MEDS ORDERED: FentaNYL Citrate 50 MCG/ML 2 ML Injection IV STA (13:56)
--- NOTE | 2024-03-17 14:11 | NUR ---
REPORT GIVEN TO [facility]. PT TRANSFERRED BY RNX2, VIA BED, WITH ALL IN-ROOM AND SPECIALTY CARE ITEMS INCLUDING SOFT-TOUCH CALL LIGHT TO ROOM 306. PT LIFTED TO NEW BED VIA LIFT, RNX2, CNAX1. BEDSIDE REPORT RECAP.
--- NOTE | 2024-03-17 14:35 | NUR ---
PT ARRIVED AOX3/4, COOPERATIVE, ABLE TO MAKE NEEDS KNOWN. ON ISOLATION FOR RSV AND ESBL. PT IS QUADRIPLEGIC WITH LITTLE FUNCTIONALITY OF RIGHT HAND. ON RA, POWERGLIDE TO LEFT UPPER ARM. ON [place] PUMP FOR NUTRITION AT 60ML/HR, WITH 100ML FLUSH EVERY 4 HOURS. PEG TUBE PATENT, SUPRAPUBIC CATHETER PATENT, ILIOSTOMY PATENT. DID RECIEVE IN REPORT PT HAS CHRONICALLY LOW BP. BLE ECHYMOTTIC WITH POWDER COVERING. HEEL PROTECTORS ACTIVE.
--- NOTE | 2024-03-17 17:34 | NUR ---
SHIFT SUMMARY PT AOX3/4, COOPERATIVE, ABLE TO MAKE NEEDS KNOWN. PT IS BEDREST DUE TO QUADRIPLEGIA FROM MS ACCORDING TO CHART. DID NOT WANT TO TAKE OFF FACE MASK. HAS NUTRITION INFUSING 60ML/HOUR. PLAN IS FOR PALLIATIVE CARE CONSULT IN MORNING BEFORE DC BACK TO [facility]. BED IN LOWEST POSITION, CALL LIGHT WITHIN REACH.
[2024-03-18 04:16] VITALS: BP 114/66
--- NOTE | 2024-03-18 04:48 | NUR ---
SHIFT SUMMARY: PT AOX3-4 WITH SOME CONFUSION. SPEECH IS SLOW AND SLURRED BUT CAN CALL WITH SOFT TOUCH LIGHT AND MAKE NEEDS KNOWN. COMPLAINTS OF PAIN THROUGHOUT THE NIGHT, MEDICATED PER EMR. NO ACUTE EVENTS. GOOD OUTPUT INTO THE OSTOMY AND CLEARY. TOLERATING MEDICATIONS AND FEEDINGS WELL THROUGH PEG TUBE. TOLERATING ORAL CARE WELL WITH ONLY SOME MILD COUGHING. PT RESTING IN BED, BED IN LOWEST POSITION, CALL LIGHT IN REACH. CONTINUING CARE.
[2024-03-18 06:13] LABS: Hematocrit 25.1 % (37.0-53.0); Hemoglobin 7.2 g/dL (13.5-17.5); Mean Corpuscular HGB Conc 28.7 g/dL (31.5-36.5); Mean Corpuscular Volume 84 fL (80-100); Mean Platelet Volume 9.7 fL (9.1-12.4); Platelet Count 473 K/mm3 (150-400); RDW Coefficient Variation 17.3 % (11.7-14.2); RDW Standard Deviation 52.2 fL (35.1-46.3); White Blood Cell Count 10.55 K/mm3 (4.00-11.30)
[2024-03-18 06:41] LABS: Bun/Creatinine Ratio 63.4 (12.0-20.0); Calcium, Blood 8.8 mg/dL (8.5-10.1); Creatinine, Blood 0.6 mg/dL (0.60-1.20); Potassium, Blood 3.7 mmol/L (3.5-5.5)
[2024-03-18 08:06] VITALS: BP 125/71
[2024-03-18] MEDS ORDERED: JUVEN PACKET1 EAC3 PO (11:05)
[2024-03-18] MEDS ORDERED: MIDO5 PO (11:09)
[2024-03-18] MEDS ORDERED: LANSOPRAZOLE30 MG PT (13:05)
[2024-03-18] MEDS ORDERED: Protein Supplement 30 ML UD PT SCH (14:00)
--- NOTE | 2024-03-18 15:39 | NUR ---
DISCHARGE PT AOX4, COOPERATIVE, ABLE TO MAKE NEEDS KNOWN. THIS RN CALLED REJI, GAVE REPORT TO JOSEPH. POWERGLIDE REMOVED BY THIS RN WITHOUT INJURY. TRANSPORTATION ARRIVED 1500, TRANSFERRED PT VIA SLIDESHEET TO [facility]. BELONGING WITH PT, PAPERWORK LEFT WITH TRANSPORTATION. 7 CARTONS OF [employer]EV[employer] LEFT WITH PT WELL.
== END 2024-03-18 15:10 | DRG 870 ==
LOC: ER 22:24 → ICUE 03-07 01:50 → ERHOLD 03-07 01:50 → ICUE 03-07 13:57 → MEDS 03-17 13:58 → ENPENDDIS 03-18 10:44 → MEDS 03-18 15:10
PROVIDERS: Family Medicine; Internal Medicine Critical Care Medicine; Student in an Organized Health Care Education/Training Program; ADMIT Internal Medicine
PROC: 5A1955Z Respiratory Ventilation, Greater than 96 Consecutive Hours (ICD-10-PCS; principal; 2024-03-07)
PROC: 5A0935A Assistance with Respiratory Ventilation, Less than 24 Consecutive Hours, High Flow/Velocity Cannula (ICD-10-PCS; 2024-03-07)
PROC: 0BH17EZ Insertion of Endotracheal Airway into Trachea, Via Natural or Artificial Opening (ICD-10-PCS; 2024-03-07)
PROC: 0DH63UZ Insertion of Feeding Device into Stomach, Percutaneous Approach (ICD-10-PCS; 2024-03-07)
PROC: 0T9B70Z Drainage of Bladder with Drainage Device, Via Natural or Artificial Opening (ICD-10-PCS; 2024-03-07)
PROC: 02HV33Z Insertion of Infusion Device into Superior Vena Cava, Percutaneous Approach (ICD-10-PCS; 2024-03-07)
PROC: B5181ZA Fluoroscopy of Superior Vena Cava using Low Osmolar Contrast, Guidance (ICD-10-PCS; 2024-03-07)
PROC: 3E033XZ Introduction of Vasopressor into Peripheral Vein, Percutaneous Approach (ICD-10-PCS; 2024-03-07)
PROC: 3E03329 Introduction of Other Anti-infective into Peripheral Vein, Percutaneous Approach (ICD-10-PCS; 2024-03-07)
PROC: 30233J1 Transfusion of Nonautologous Serum Albumin into Peripheral Vein, Percutaneous Approach (ICD-10-PCS; 2024-03-08)
PROC: 4A133R1 Monitoring of Arterial Saturation, Peripheral, Percutaneous Approach (ICD-10-PCS; 2024-03-11)
PROC: 0DB78ZX Excision of Stomach, Pylorus, Via Natural or Artificial Opening Endoscopic, Diagnostic (ICD-10-PCS; 2024-03-13)
DX: A41.9 Sepsis, unspecified organism (principal); J69.0 Pneumonitis due to inhalation of food and vomit; J96.21 Acute and chronic respiratory failure with hypoxia; J96.22 Acute and chronic respiratory failure with hypercapnia; R65.21 Severe sepsis with septic shock; R53.2 Functional quadriplegia; J18.9 Pneumonia, unspecified organism; K22.11 Ulcer of esophagus with bleeding; R57.8 Other shock; N17.9 Acute kidney failure, unspecified; F03.94 Unspecified dementia, unspecified severity, with anxiety; E87.0 Hyperosmolality and hypernatremia; Z16.24 Resistance to multiple antibiotics; Z16.12 Extended spectrum beta lactamase (ESBL) resistance; F03.93 Unspecified dementia, unspecified severity, with mood disturbance; E87.20 Acidosis, unspecified; N18.9 Chronic kidney disease, unspecified; I48.0 Paroxysmal atrial fibrillation; D63.1 Anemia in chronic kidney disease; F32.9 Major depressive disorder, single episode, unspecified; K21.9 Gastro-esophageal reflux disease without esophagitis; G35 Multiple sclerosis; L89.90 Pressure ulcer of unspecified site, unspecified stage; E83.51 Hypocalcemia; E16.2 Hypoglycemia, unspecified; E83.39 Other disorders of phosphorus metabolism; E88.09 Other disorders of plasma-protein metabolism, not elsewhere classified; E83.42 Hypomagnesemia; N40.1 Benign prostatic hyperplasia with lower urinary tract symptoms; R33.8 Other retention of urine; B96.20 Unspecified Escherichia coli [E. coli] as the cause of diseases classified elsewhere; R13.10 Dysphagia, unspecified; E66.9 Obesity, unspecified; E87.6 Hypokalemia; G89.4 Chronic pain syndrome; N31.9 Neuromuscular dysfunction of bladder, unspecified; I87.8 Other specified disorders of veins; Z86.73 Personal history of transient ischemic attack (TIA), and cerebral infarction without residual deficits; Z87.442 Personal history of urinary calculi; Z98.890 Other specified postprocedural states; Z98.1 Arthrodesis status; Z93.2 Ileostomy status; Z88.5 Allergy status to narcotic agent; Z88.8 Allergy status to other drugs, medicaments and biological substances; Z88.1 Allergy status to other antibiotic agents; Z91.041 Radiographic dye allergy status; Z79.899 Other long term (current) drug therapy; Z79.891 Long term (current) use of opiate analgesic; Z79.01 Long term (current) use of anticoagulants; Z79.51 Long term (current) use of inhaled steroids; Z98.62 Peripheral vascular angioplasty status; Z74.01 Bed confinement status; Z86.711 Personal history of pulmonary embolism; Z87.19 Personal history of other diseases of the digestive system; Z68.27 Body mass index [BMI] 27.0-27.9, adult
CPT/HCPCS: 31500; 31720; 36415; 36556; 36600; 71045; 80048; 80053; 80069; 80202; 81001; 82270; 82330; 82533; 82728; 82803; 82947; 83540; 83550; 83605; 83735; 84100; 84145; 84295; 84484; 85014; 85018; 85025; 85027; 86850; 86900; 86901; 87040; 87070; 87077; 87086; 87186; 87205; 87428-QW; 88305; 88341; 88342; 93005; 93010; 94002; 94003; 94762; 96361; 96365; 99285-25; A9270; C1751; J0295; J0612; J1171; J1644; J1750; J2185; J2250; J2371; J2470; J2704; J2919; J3010; J3370; J3475; J3480; J7030; J7040; J7050; J7060; J7070; J7120; J7799; P9047